=== PATIENT | male | born 1950 | race Caucasian/White ===

== ENCOUNTER 2017-07-08 10:29 | Inpatient (IN) | payer OTHER ==
[2017-07-08] MEDS ORDERED: PIPERACILLIN/TAZOB 3.375 GM 3.375 GM in DEXTROSE 5%-WATER - 50 ML IVPB ONE (10:54)
[2017-07-08] MEDS ORDERED: VANCOMYCIN 1,000 MG in DEXTROSE 5%-WATER - 250 ML IVPB ONE (10:54)
--- NOTE | 2017-07-08 11:05 | PDOC ---
History of Present Illness - General Chief Complaint: Abscess Boil Stated Complaint: ABSCESS FOOT Time Seen by Provider: 07/08/17 10:36 History Source: Patient - History of Present Illness Initial Comments: 07/08/17 11:02 Patient is an 67M with history of kidney transplant (on azathiprine and prednisone), IDDM, HTN, CAD here today complaining of an abscess to the right foot. Patient states that he first noticed the abscess 2-3 days ago. He's coming in today because he noticed discharge. Endorses subjective fevers and chills. Denies nausea, vomiting, shortness of breath, chest pain. He reports compliance with his medications. Past History - Past Medical History Allergies/Adverse Reactions: Allergies Allergy/AdvReac Type Severity Reaction Status Date / Time No Known Allergies Allergy Verified 07/08/17 10:38 Home Medications: Ambulatory Orders Amlodipine Besylate [Norvasc -] 5 mg PO DAILY 04/24/15 Clopidogrel Bisulfate [Plavix -] 75 mg PO DAILY 04/24/15 Fludrocortisone Acetate 0.1 mg PO DAILY 04/24/15 Nut.tx.gluc.intoler,Lac-Fr,Soy [Glucerna] 1,000 ml PO DAILY 04/24/15 Ranitidine [Zantac -] 150 mg PO DAILY 04/24/15 Simvastatin [Zocor -] 20 mg PO DAILY 04/24/15 Tacrolimus [Astagraf Xl] 1 mg PO DAILY 04/24/15 Tamsulosin HCl [Flomax] 0.4 mg PO DAILY 04/24/15 metFORMIN XR [Glucophage *Xr* -] 500 mg PO DAILY 04/24/15 COPD: No Diabetes: Yes HTN: Yes - Suicide/Smoking/Psychosocial Hx Smoking History: Never smoked Hx Alcohol Use: No Drug/Substance Use Hx: No Substance Use Type: None Review of Systems - Review of Systems Comments:: 07/08/17 11:09 GENERAL/CONSTITUTIONAL: +fever, +chills. No weakness. HEAD, EYES, EARS, NOSE AND THROAT: No change in vision. No sore throat. CARDIOVASCULAR: No chest pain or shortness of breath RESPIRATORY: No cough, wheezing, or hemoptysis. GASTROINTESTINAL: No nausea, vomiting, diarrhea or constipation. GENITOURINARY: No dysuria, frequency, or change in urination. MUSCULOSKELETAL: +right foot pain. No neck or back pain. SKIN: No rash NEUROLOGIC: No headache, vertigo, loss of consciousness, or change in strength/ sensation. ALLERGIC/IMMUNOLOGIC: No hives or skin allergy. *Physical Exam - Vital Signs Last Vital Signs Temp Pulse Resp BP Pulse Ox 98.5 F 78 17 148/56 98 07/08/17 10:35 07/08/17 10:35 07/08/17 10:35 07/08/17 10:35 07/08/17 10:35 - Physical Exam Comments: 07/08/17 11:10 GENERAL: Awake, alert, and fully oriented, in no acute distress R FOOT: 3x4cm area of fluctuance with surrounding erythema, tender, neurovascularly intact HEAD: No signs of trauma, normocephalic, atraumatic EYES: PERRLA, EOMI, sclera anicteric, conjunctiva clear ENT: Auricles normal inspection, hearing grossly normal, nares patent, oropharynx clear without exudates. Moist mucosa LUNGS: No distress, speaks full sentences, clear to auscultation bilaterally HEART: Regular rate and rhythm, normal S1 and S2, no murmurs, rubs or gallops, peripheral pulses normal and equal bilaterally. ABDOMEN: Soft, nontender, normoactive bowel sounds. No guarding, no rebound. No masses NEUROLOGICAL: Cranial nerves II through XII grossly intact. Normal speech, no focal sensorimotor deficits SKIN: Warm, Dry, normal turgor, no rashes or lesions noted. ED Treatment Course - LABORATORY CBC & Chemistry Diagram: 07/08/17 11:40 07/08/17 13:28 - RADIOLOGY Radiology Studies Ordered: Category Date Time Status CHEST X-RAY PORTABLE* [RAD] Stat Radiology 07/08/17 10:50 Ordered FOOT-RIGHT [RAD] Stat Radiology 07/08/17 10:50 Ordered Medical Decision Making - Medical Decision Making 07/08/17 11:11 Patient is 67M with history of kidney transplant, IDDM, CAD, HTN here today with diabetic foot wound. Vital signs normal and stable. Will evaluate with cbc , cmp, esr, crp, pt/inr, blood cultures and x-ray to evaluate for possible osteomyelitis. Will treat empirically with vanc and zosyn given patient's diabetic and immunosuppression. 07/08/17 12:35 EKG shows normal sinus rhythm with rate of 80. No st elevations/depressions. Normal MA/QRS/QTc intervals. Normal axis. No significant t wave abnormalities. 07/08/17 13:05 Foot x-ray shows no free air, destruction of 5th metatarsal ?acute, likely chronic. 07/08/17 13:06 CXR shows no acute cardiopulmonary process. *DC/Admit/Observation/Transfer Diagnosis at time of Disposition: Diabetic foot ulcer - Discharge Dispostion Condition at time of disposition: Stable Decision to Admit order: Yes - Referrals - Patient Instructions - Post Discharge Activity
--- NOTE | 2017-07-08 11:09 | PDOC ---
Attending Attestation - Resident Resident Name: Jamel Tucker - ED Attending Attestation I have performed the following: I have examined & evaluated the patient, The case was reviewed & discussed with the resident, I agree w/resident's findings & plan, Exceptions are as noted - HPI HPI: 07/08/17 11:05 67 year old male with history of renal transplant ([place]) on azathioprine, prednisone, HTN, DM, CAD p/w right foot infection. Patient accidentally had scraped the bottom of right foot. Started to develop deeper abscess and infection of right foot. Endorses subjective fevers and chills. Has had prior right foot infections. - Physicial Exam PE: 07/08/17 11:07 GENERAL: Awake, alert, and fully oriented, in no acute distress. HEAD: No signs of trauma EYES: EOMI, sclera anicteric, conjunctiva clear ENT: Auricles normal inspection, hearing grossly normal, nares patent NECK: Normal ROM, supple EXTREMITIES: RLE: 2+ DP pulse. Sensation intact throughout. Approx 4x4 cm induration, fluctuance of right plantar surface of foot. NEUROLOGICAL: Cranial nerves II through XII grossly intact. Normal speech, normal gait SKIN: Warm, Dry, normal turgor, no rashes or lesions noted. - Medical Decision Making 07/08/17 11:08 Vital Signs Temp Pulse Resp BP Pulse Ox 98.5 F 78 17 148/56 98 07/08/17 10:35 07/08/17 10:35 07/08/17 10:35 07/08/17 10:35 07/08/17 10:35 67 year old M s/p renal transplant on immunosuppressants p/w R foot infection. Labs, cultures, empiric IV antibiotics. R foot xray, ESR, CRP to r/o osteomyelitis Surgical/podiatry consultation. Admit. 07/08/17 14:52 CBC, BMP 07/08/17 11:40 07/08/17 13:28 CMP Sodium 135 mmol/L (136-145) L 07/08/17 13:28 Potassium 4.6 mmol/L (3.5-5.1) 07/08/17 13:28 Chloride 101 mmol/L (98-107) 07/08/17 13:28 Carbon Dioxide 27 mmol/L (21-32) 07/08/17 13:28 Anion Gap 7 (8-16) L 07/08/17 13:28 BUN 23 mg/dL (7-18) H 07/08/17 13:28 Creatinine 1.3 mg/dL (0.7-1.3) D 07/08/17 13:28 Creat Clearance w eGFR 55.06 (>60) 07/08/17 13:28 Random Glucose 297 mg/dL (74-106) H D 07/08/17 13:28 Calcium 9.3 mg/dL (8.5-10.1) 07/08/17 13:28 Total Bilirubin 1.1 mg/dL (0.2-1.0) H D 07/08/17 13:28 AST 11 U/L (15-37) L D 07/08/17 13:28 ALT 13 U/L (12-78) D 07/08/17 13:28 Alkaline Phosphatase 62 U/L (45-117) D 07/08/17 13:28 C-Reactive Protein 4.9 MG/DL (0.00-0.3) H 07/08/17 13:28 Total Protein 6.2 g/dl (6.4-8.2) L 07/08/17 13:28 Albumin 3.3 g/dl (3.4-5.0) L 07/08/17 13:28 Pt admitted to [facility]. Heart Score/ECG Review #1 ECG reviewed & interpreted by me at: 11:30 07/08/17 11:30 NSR 80, no std/slick, normal axis, normal intervals, QTC 405 msec
[2017-07-08] MEDS ORDERED: VANCOMYCIN 1 GRAM (PRE-DOCKED) 1,000 MG/250 ML BAG IVPB ONE (11:12)
[2017-07-08] MEDS ORDERED: PIPERACILLIN/TAZOB 3.375 GM 3.375 GM/50 ML BAG IVPB ONE (11:13)
[2017-07-08 11:56] LABS: HEMATOCRIT 37.8 % (35.4-49); HEMOGLOBIN 12.3 GM/dL (11.7-16.9); MCH 28.4 pg (25.7-33.7); MCHC 32.6 g/dl (32.0-35.9); MEAN CELL VOLUME 87.1 fl (80-96); MEAN PLT VOLUME 7.6 fl (7.5-11.1); PLATELET COUNT 188 K/MM3 (134-434); RBC 4.34 M/mm3 (4.00-5.60); RDW 16.2 % (11.9-15.9); WHITE BLOOD COUNT 6.6 K/mm3 (4.0-10.0)
[2017-07-08 12:08] LABS: INR 1.06 (0.82-1.09)
[2017-07-08 13:05] LABS: ERYTHROCYTE SEDIMENTATION RATE 18 mm/hr (0-20)
[2017-07-08 14:19] LABS: ALBUMIN 3.3 g/dl (3.4-5.0); ANION GAP 7 (8-16); BILIRUBIN,TOTAL 1.1 mg/dL (0.2-1.0); BLOOD UREA NITROGEN 23 mg/dL (7-18); CALCIUM 9.3 mg/dL (8.5-10.1); CHLORIDE 101 mmol/L (98-107); CO2 27 mmol/L (21-32); CREATININE 1.3 mg/dL (0.7-1.3); GLUCOSE,RANDOM 297 mg/dL (74-106); POTASSIUM 4.6 mmol/L (3.5-5.1); SGOT/AST 11 U/L (15-37); SGPT/ALT 13 U/L (12-78); SODIUM 135 mmol/L (136-145); TOT PROT 6.2 g/dl (6.4-8.2)
[2017-07-08 14:32] LABS: ALK PHOS 62 U/L (45-117)
--- NOTE | 2017-07-08 14:56 | HP ---
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 Pain is constant dull 8/10, non radiating. He has had subjective fevers and chills, no nausea and vomiting. Pt cannot describe the onset of the wound. He said he noticed a blister that subsequently resulted in so much pain that he could not bear weight on it and so is ambulating with the aid of a cane. 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 Pt acknowleges chronic neuropathic pain in both feet and denies loss of sensation. Last insulin was yesterday. He felt to ill today to take medication. He has been diabetic for over 30years on insulin, with nephropathy and need for renal transplant about 3 years ago. He follows with the transplant center with [facility] but came in to [facility] today because of proximity to him. No cough, no chest pain, no change in bowel habits, no dysuria. ER course was notable for: (1) BP-148/56, Cr-1.3, CRP- elevated at 4.9 (2) R foot Xray- Destruction of 5th metatarsal. Diffuse vascular calcifications. 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 Lat Xray; Tarsal bone project soft tissue swelling. (3) Vancomycin 1g, zosyn 3.375 Recent Travel: PAST MEDICAL HISTORY: renal transplant, DM, HTN, recent CAD on clopidogrel PAST SURGICAL HISTORY: Abdominal Herniorrhaphy R metatarsal amputation L leg surgery Social History: Lives alone, does not work currently Smoking: Denies Alcohol:Denies Drugs: Denies Family History: Allergies No Known Allergies Allergy (Verified 07/08/17 10:38) HOME MEDICATIONS: Home Medications Medication Instructions Recorded Amlodipine Besylate [Norvasc -] 5 mg PO DAILY 04/24/15 Clopidogrel Bisulfate [Plavix -] 75 mg PO DAILY 04/24/15 Fludrocortisone Acetate 0.1 mg PO DAILY 04/24/15 Nut.tx.gluc.intoler,Lac-Fr,Soy 1,000 ml PO DAILY 04/24/15 [Glucerna] Ranitidine [Zantac -] 150 mg PO DAILY 04/24/15 Simvastatin [Zocor -] 20 mg PO DAILY 04/24/15 Tacrolimus [Astagraf Xl] 1 mg PO DAILY 04/24/15 Tamsulosin HCl [Flomax] 0.4 mg PO DAILY 04/24/15 metFORMIN XR [Glucophage *Xr* -] 500 mg PO DAILY 04/24/15 REVIEW OF SYSTEMS CONSTITUTIONAL: Absent: fever+, chills+, diaphoresis, generalized weakness, malaise, loss of appetite, weight change HEENT: Absent: rhinorrhea, nasal congestion, throat pain, throat swelling, difficulty swallowing, mouth swelling, ear pain, eye pain, visual changes CARDIOVASCULAR: Absent: chest pain, syncope, palpitations, irregular heart rate, lightheadedness , peripheral edema RESPIRATORY: Absent: cough, shortness of breath, dyspnea with exertion, orthopnea, wheezing, stridor, hemoptysis GASTROINTESTINAL: Absent: abdominal pain, abdominal distension, nausea, vomiting, diarrhea, constipation, melena, hematochezia GENITOURINARY: Absent: dysuria, frequency, urgency, hesitancy, hematuria, flank pain, genital pain MUSCULOSKELETAL: Absent: myalgia, arthralgia, joint swelling, back pain, neck pain SKIN: Absent: rash, itching, pallor HEMATOLOGIC/IMMUNOLOGIC: Absent: easy bleeding, easy bruising, lymphadenopathy, frequent infections ENDOCRINE: Absent: unexplained weight gain, unexplained weight loss, heat intolerance, cold intolerance NEUROLOGIC: Absent: headache, focal weakness or paresthesias, dizziness, unsteady gait, seizure, mental status changes, bladder or bowel incontinence PSYCHIATRIC: Absent: anxiety, depression, suicidal or homicidal ideation, hallucinations. PHYSICAL EXAMINATION Vital Signs - 24 hr 07/08/17 10:35 Temperature 98.5 F Pulse Rate 78 Respiratory 17 Rate Blood Pressure 148/56 O2 Sat by Pulse 98 Oximetry (%) GENERAL: Awake, alert, and fully oriented, in no acute respiratory distress, sating well in RA. EYES: Pupils equal, round and reactive to light, extraocular movements intact EARS, NOSE, THROAT: Moist mucous membranes. LUNGS: Breath sounds equal, clear to auscultation bilaterally. No wheezes, and no crackles. HEART: Regular rate and rhythm, normal S1 and S2, S4 systolic murmur ABDOMEN: Right semicircular scar. Obese, Soft, nontender, normoactive bowel sounds LOWER EXTREMITIES: Normal range of motion at all joints. DP pulse on L1+ no left pedal edema. DP on R 1-(palpable), Missing R 5 metatarsal. R heel callus, firm with 2cm laceration. Dirty looking, no obvious drainage or bleeding. UPPER EXTREMITIES: 2+ pulses, warm, well-perfused. NEUROLOGICAL: AAO x3. Normal tone and muscle strength. Normal speech. gait not observed. CBC, BMP 07/08/17 11:40 07/08/17 13:28 Laboratory Results - last 24 hr 07/08/17 07/08/17 07/08/17 11:40 11:40 13:28 WBC 6.6 RBC 4.34 Hgb 12.3 Hct 37.8 MCV 87.1 MCH 28.4 MCHC 32.6 RDW 16.2 H Plt Count 188 MPV 7.6 ESR 18 PT with INR 12.00 INR 1.06 Sodium 135 L Potassium 4.6 Chloride 101 Carbon Dioxide 27 Anion Gap 7 L BUN 23 H Creatinine 1.3 D Creat Clearance w eGFR 55.06 Random Glucose 297 H D Calcium 9.3 Total Bilirubin 1.1 H D AST 11 L D ALT 13 D Alkaline Phosphatase 62 D C-Reactive Protein 4.9 H Total Protein 6.2 L Albumin 3.3 L ASSESSMENT/PLAN: Pt is a 67 yo s/p renal transplant, PMHx of DM, HTN, recent CAD on clopidogrel now presenting with R heel swelling and pain for 3 days. # R Diabetic foot R/O osteomyelitis DM poorly controlled, renal transplant pt on immunosuppressive tx may not mount adequate response Xray of foot negative for osteomyelitis, but CRP- elevated Will do MRI of R foot w/o contrast -considering renal transplant and new GERALDINE Received zosyn 3.375mg in ED, will continue Q8H Received 1g vancomycin in ED, will continue Q12H Tabs percocet 1 Q4H PRN -pain 4-6 ID consult- Dr Vargas Renal consult- Dr Carlton Vascular- Dr Bose Podiatry- Dr Momin pending blood culture #DM poorly controlled with hyperglycemia Glu-297 HgbA1c Home med reconciled Resume Levemir 30mg HS Resume Januvia 100mg daily ISS TIDAC BGM TIDAC Hold home metformin #GERALDINE Documented previous cr-0.8 to 1.0 Maybe secondary to dehydration IV Normal saline @100/hr Urine lytes Dr Carlton consulted [facility] Cont sodium NaHCO3 #HTN Resume home amlodipine, bystolic #s/p renal transplant On prednisone, azathioprine, astagraft- resume #CAD R/O chronic CHF Does not look decompensated at this time Cont ASA, plavix, isosorbide #HLD Continue simvastatin #BPH Cont flomax #Chronic constipation Cont miralax #PPx Cont ranitidine Continue plavix Dispo: Admit med surg Visit type - Emergency Visit Emergency Visit: Yes ED Registration Date: 07/08/17 Care time: The patient presented to the Emergency Department on the above date and was hospitalized for further evaluation of their emergent condition. - New Patient This patient is new to me today: Yes Date on this admission: 07/08/17 - Critical Care Critical Care patient: No Hospitalist Screening - Colonoscopy Questionnaire Colonoscopy Questionnaire: Colonoscopy Questionnaire - Patient: 50 - 75 years old and never had a screening colonoscopy: Unknown History of colon or rectal polyps, or CA: Unknown History of IBD, Crohn's disease or UC: Unknown History of abdominal radiation therapy as a child: Unknown - Relative: 1 with colon or rectal CA, or polyps at age 60 or younger: Unknown Colon or rectal CA diagnosed at age 45 or younger: Unknown Multiple relatives with colon or rectal CA: Unknown - Outcome: Screening Result: Negative Screen
--- NOTE | 2017-07-08 15:50 | HP ---
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 HISTORY OF PRESENT ILLNESS: The patient is a 67 year old Ivorian speaking male with a significant PMH of renal transplant, on Azathioprine, Prednisone, CAD, HTN, DM, history of osteomyelitis, that presents to the hospital complaining of right foot pain for 2-3 days. He doesn't know if he had injury to his foot. He states that the pain in 8/10 in severity, no aggravating alleviating factors. He didn't take any OTC medications. He is also complaining of abdominal hernia that is visible that he is standing.The patient reports chills but no fever. He denies chest pain, , abdominal pain, dysuria, N/V, diarrhea. The patient is a poor historian. ER course was notable for: (1)CRP 4.9 (2)XR foot (3)CXR PAST MEDICAL HISTORY: as above PAST SURGICAL HISTORY: hernia repair, R foot partial amputation of 5th metatarsal Social History: Smoking:denies, never smoker Alcohol:denies Drugs: denies Family History: N/A Allergies No Known Allergies Allergy (Verified 07/08/17 10:38) HOME MEDICATIONS: Home Medications Medication Instructions Recorded Amlodipine Besylate [Norvasc -] 5 mg PO DAILY 04/24/15 Clopidogrel Bisulfate [Plavix -] 75 mg PO DAILY 04/24/15 Fludrocortisone Acetate 0.1 mg PO DAILY 04/24/15 Nut.tx.gluc.intoler,Lac-Fr,Soy 1,000 ml PO DAILY 04/24/15 [Glucerna] Ranitidine [Zantac -] 150 mg PO DAILY 04/24/15 Simvastatin [Zocor -] 20 mg PO DAILY 04/24/15 Tacrolimus [Astagraf Xl] 1 mg PO DAILY 04/24/15 Tamsulosin HCl [Flomax] 0.4 mg PO DAILY 04/24/15 metFORMIN XR [Glucophage *Xr* -] 500 mg PO DAILY 04/24/15 REVIEW OF SYSTEMS CONSTITUTIONAL: Absent: fever, chills, diaphoresis, generalized weakness, malaise, loss of appetite, weight change HEENT: Absent: rhinorrhea, nasal congestion, throat pain, throat swelling, difficulty swallowing CARDIOVASCULAR: Absent: chest pain, syncope, palpitations, irregular heart rate, lightheadedness , peripheral edema RESPIRATORY: Absent: cough, shortness of breath, dyspnea with exertion, orthopnea, wheezing GASTROINTESTINAL: Absent: abdominal pain, abdominal distension, nausea, vomiting, diarrhea, constipation GENITOURINARY: Absent: dysuria, frequency, urgency, hesitancy, hematuria, flank pain, genital pain MUSCULOSKELETAL: right foot pain Absent: myalgia, arthralgia, joint swelling, back pain, neck pain SKIN: Absent: rash, itching, pallor HEMATOLOGIC/IMMUNOLOGIC: Absent: easy bleeding, easy bruising, lymphadenopathy, frequent infections ENDOCRINE: Absent: unexplained weight gain, unexplained weight loss NEUROLOGIC: Absent: headache, focal weakness or paresthesias, dizziness PSYCHIATRIC: Absent: anxiety, depression PHYSICAL EXAMINATION Vital Signs - 24 hr 07/08/17 10:35 Temperature 98.5 F Pulse Rate 78 Respiratory 17 Rate Blood Pressure 148/56 O2 Sat by Pulse 98 Oximetry (%) GENERAL: Awake, alert, and fully oriented, in no acute distress. HEAD: Normal with no signs of trauma. EYES: Extraocular movements intact, sclera anicteric, conjunctiva clear. No lid lag. EARS, NOSE, THROAT: Ears normal, nares patent, oropharynx clear without exudates. Moist mucous membranes. NECK: Normal range of motion, supple without lymphadenopathy, JVD, or masses. LUNGS: Breath sounds equal, clear to auscultation bilaterally. No wheezes, and no crackles. No accessory muscle use. HEART: Regular rate and rhythm, normal S1 and S2 without murmur, rub or gallop. ABDOMEN: Soft, nontender, not distended, normoactive bowel sounds, no guarding, no rebound, no masses. No hepatomegaly or splenomegaly, scar on right side, well healed. MUSCULOSKELETAL: Normal range of motion at all joints. No bony deformities or tenderness. UPPER EXTREMITIES: No peripheral edema. LOWER EXTREMITIES: 1+ pulses, warm, no calf tenderness. Right foot: mid foot, lateral side, closed wound, around 3 cm, dark brown color, no discharge, swelling, mild flatulance, no crepitus, mild erythema and missing 5th metatarsal , cracked dry skin. Left foot: dry skin, onychomycosis in both feet. NEUROLOGICAL: No facial asymmetry, no slurred speech, motor 5/5, sensation intact to light touch. PSYCHIATRIC: Cooperative. Good eye contact. Appropriate mood and affect. SKIN: Warm, dry, normal turgor. Laboratory Results - last 24 hr 07/08/17 07/08/17 07/08/17 11:40 11:40 13:28 WBC 6.6 RBC 4.34 Hgb 12.3 Hct 37.8 MCV 87.1 MCH 28.4 MCHC 32.6 RDW 16.2 H Plt Count 188 MPV 7.6 ESR 18 PT with INR 12.00 INR 1.06 Sodium 135 L Potassium 4.6 Chloride 101 Carbon Dioxide 27 Anion Gap 7 L BUN 23 H Creatinine 1.3 D Creat Clearance w eGFR 55.06 Random Glucose 297 H D Calcium 9.3 Total Bilirubin 1.1 H D AST 11 L D ALT 13 D Alkaline Phosphatase 62 D C-Reactive Protein 4.9 H Total Protein 6.2 L Albumin 3.3 L ASSESSMENT/PLAN: The patient is a 67 year old Ivorian speaking male with a significant PMH of renal transplant, on Azathioprine, Prednisone, CAD, HTN, DM, history of osteomyelitis, that presents to the hospital complaining of right foot pain for 2-3 days. The patient is admitted for diabetic foot, possible osteomyelitis. Diabetic foot: -the patient is complaining of foot pain that may be osteomyelitis. It was not visualized with x ray so we will obtain MRI without contrast (Elevated Cr). -the patient has elevated CRP 4.9 and ESR is 18, no fever, no elevated WBC -the patient was given broad spectrum antibiotics Vancomycin and Zosyn. We will continue for now, ID consulted, will f/u recommendations -Vascular surgery and podiatry consulted for evaluation GERALDINE: -Cr is 1.3 today. On previous admissions from 2016 it was normal. 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 We called the office today but it was already closed. -avoid nephrotoxic substances -continue NS -continue immunosupressants CAD: -cont home ASA, Isosorbite, Plavix DMII: -added HgA1c -continue Levemir 30 units in AM -continue Januvia -continue ISS ACHS -continue BGMs ACHS -diabetic diet HTN: -cont Bystolic, Norvasc Renal transplant: -continue immunosupressants: Tacrolimus, Prednisone, Azathioprine -f/u with transplant center -cont sodium bicarbonite -Renal consulted GERD: -cont Zantac BPH: -continue Flomax Disposition: -med surg Full note to follow Problem List - Problem (1) Hypertension Code(s): I10 - ESSENTIAL (PRIMARY) HYPERTENSION (2) Hyperlipidemia Code(s): E78.5 - HYPERLIPIDEMIA, UNSPECIFIED (3) BPH (benign prostatic hyperplasia) Code(s): N40.0 - BENIGN PROSTATIC HYPERPLASIA WITHOUT LOWER URINRY TRACT SYMP (4) CAD (coronary artery disease) Code(s): I25.10 - ATHSCL HEART DISEASE OF [place] CORONARY ARTERY W/O ANG PCTRS (5) Diabetic foot ulcer Code(s): E11.621 - TYPE 2 DIABETES MELLITUS WITH FOOT ULCER; L97.509 - NON- PRESSURE CHRONIC ULCER OTH PRT UNSP FOOT W UNSP SEVERITY (6) History of renal transplant Code(s): Z94.0 - KIDNEY TRANSPLANT STATUS Visit type - Emergency Visit Emergency Visit: Yes ED Registration Date: 07/08/17 Care time: The patient presented to the Emergency Department on the above date and was hospitalized for further evaluation of their emergent condition. - New Patient This patient is new to me today: Yes Date on this admission: 07/08/17 - Critical Care Critical Care patient: No
[2017-07-08] MEDS ORDERED: ACETAMINOPHEN 325 MG TABLET (FP) PO ONE (16:11)
[2017-07-08] MEDS ORDERED: ACETAMINOPHEN 325 MG TABLET (FP) ONE (16:12)
[2017-07-08] MEDS ORDERED: DOCUSATE SODIUM 100 MG CAPSULE (FP) PO PRN (16:15)
[2017-07-08] MEDS ORDERED: oxyCODONE HCL 5 MG TABLET PO PRN (16:15)
[2017-07-08] MEDS: SODIUM CHLORIDE 1,000 ML IV SCH ×2 (16:19→21:21)
[2017-07-08] MEDS ORDERED: TACROLIMUS 1 MG PO SCH (16:30)
[2017-07-08] MEDS ORDERED: amLODIPine BESYLATE 5 MG TABLET (FP) PO SCH (16:45)
[2017-07-08] MEDS: CLOPIDOGREL BISULFATE 75 MG TABLET (FP) PO SCH (16:45)
[2017-07-08] MEDS: TAMSULOSIN HCL 0.4 MG CAP.ER.24H (FP) PO SCH (16:45)
[2017-07-08] MEDS ORDERED: TAMSULOSIN HCL 0.4 MG CAP.ER.24H (FP) ONE (16:47)
[2017-07-08] MEDS ORDERED: CLOPIDOGREL BISULFATE 75 MG TABLET (FP) ONE (16:48)
[2017-07-08] MEDS ORDERED: amLODIPine BESYLATE 5 MG TABLET (FP) ONE (16:48)
[2017-07-08] MEDS ORDERED: VANCOMYCIN 1,000 MG in DEXTROSE 5%-WATER - 250 ML IVPB SCH (17:45)
[2017-07-08] MEDS ORDERED: PIPERACILLIN/TAZOB 3.375 GM 3.375 GM in DEXTROSE 5%-WATER - 50 ML IVPB SCH (18:00)
[2017-07-08 18:04] VITALS: BMI 26.2
--- NOTE | 2017-07-08 18:06 | PN ---
Teaching Attending Note Name of Resident: Nguyen Alberto ATTENDING PHYSICIAN STATEMENT I saw and evaluated the patient. I reviewed the resident's note and discussed the case with the resident. I agree with the resident's findings and plan as documented. SUBJECTIVE:67yo M with PMH HTN, CAD with possible stent placement, DM, s/p renal transplant due to diabetic nephropathy has been off HD for 5 years since transplant presented to the ER with R foot pain for 2-3days. states he noted he had a blister on his foot a few days ago due to the pain. unaware how long it was there due to decreased sensation in the foot. assoc with subjective fevers and chills. denies CP, SOB, N/V/C/D claims medication compliance. PMD is Dr Elkins but does not know where she is located OBJECTIVE: Last Vital Signs Temp Pulse Resp BP Pulse Ox 102.4 F H 83 18 160/69 98 07/08/17 16:29 07/08/17 16:29 07/08/17 16:29 07/08/17 16:29 07/08/17 16:29 General NAD CV S1 s2 + Lungs CTA Extremities LUE AV graft palpable thrill. R foot with hardened callus on ball of foot. not tender + mild fluctanace. sensation intact. pulse intact ASSESSMENT AND PLAN: 67yo M with PMH HTN, CAD with possible stent placement, DM, s/p renal transplant due to diabetic nephropathy presented to the ER with R foot pain for 2-3days 1. Diabetic foot ulcer- concern for OM given elevated ESR. initial XR showing bone destruction. will obtain MRI. vascular surgery, podiatry and ID consulted. start vanco/zosyn. check daily vanco levels given hx of renal disease. f/u Cx 2. GERALDINE- liekly infection and dehydration. start IVF. check urine lytes. renal u/ s. nephrology consult due to hx. 3. DM- uncontrolled. unclear how much insulin at home. start levemir 10 units tonight, iss. will titrate to optimize sugar control. check A1c 4. CAD- recent cardiac cath 3 weeks ago. on plavix so possible stent placement. cont plavix 5. s/p renal transplant- pt states he sees Dr Elkins but too many doctors listed with this name. will call pharmacy to confirm meds. appears he may be on immunosupressant therapy. renal consulted 6. DVT ppx- hep sq
[2017-07-08 18:57] LABS: MAGNESIUM 1.3 mg/dL (1.8-2.4)
[2017-07-08] MEDS ORDERED: MAGNESIUM SULF 50% (8.12 MEQ/2 ML-1 GM VIAL) IVPB ONE (20:19)
[2017-07-08] MEDS ORDERED: NAPH,MB-DB/K PH,MBDB POWDER PACKET PO ONE (20:45)
[2017-07-08] MEDS ORDERED: MAGNESIUM SULFATE IN WATER 2 GM/50 ML IVPB IVPB ONE (20:45)
[2017-07-08] MEDS: TACROLIMUS ANHYDROUS 1 MG CAPSULE PO SCH (21:21)
[2017-07-08] MEDS: azaTHIOprine 50 MG TABLET PO SCH (21:21)
[2017-07-08] MEDS: NEBIVOLOL 10 MG TABLET (FP) PO SCH (21:21)
[2017-07-08] MEDS: ASPIRIN 325 MG TABLET PO SCH (21:22)
[2017-07-08] MEDS: predniSONE 5 MG TABLET (UD) PO SCH (21:22)
[2017-07-08] MEDS: INSULIN (LEVEMIR) 100 UNITS/ML UNITS SQ SCH (21:23)
[2017-07-08] MEDS: ATORVASTATIN CA 10 MG TABLET (FP) PO SCH (21:24)
[2017-07-08] MEDS: ISOSORBIDE MONONITRATE 60 MG TAB.SR.24H (FP) PO SCH (21:28)
[2017-07-08] MEDS: INSULIN SLIDING SCALE (NOVOLOG) 1 VIAL SQ SCH (21:32)
[2017-07-08] MEDS ORDERED: INSULIN (NOVOLOG) ASPART 100 UNITS/ML 10ML VIAL ONE (21:32)
[2017-07-08] MEDS ORDERED: INSULIN (LEVEMIR) 100 UNITS/ML UNITS SQ SCH ×2 (22:00)
[2017-07-08] MEDS: VANCOMYCIN 1,000 MG in DEXTROSE 5%-WATER - 250 ML IVPB SCH (22:19)
[2017-07-09] MEDS: INSULIN SLIDING SCALE (NOVOLOG) 1 VIAL SQ SCH ×3 (06:00→17:08)
[2017-07-09] MEDS ORDERED: PT OWN MED DRAWER 7, Y5N ONE ×3 (06:44→21:15)
--- NOTE | 2017-07-09 06:57 | CONSULT ---
Consult - text type - Consultation Consultation Note: Podiatry Consultation: 67 year old pleasant IDDM M presents with R foot swelling for about 1 week. Does report subjective fever/chills at home. Currently with low grade temp, otherwise VSS. PMHx: CAD s/p stent, IDDM, HTN, s/p renal transplant Meds: noted ALL NKMA ANGIE: R foot: pedal pulses weakly palpable, TG wnl, CFT brisk to all toes. There is a charcot deformity of the right foot with prominence plantar midfoot. There is mild fluctuance with serous drainage from the plantar midfoot, hyperkeratotic , no probing to bone, no soft tissue crepitus, no streaking cellulitis. Mild tenderness to palpation. WBC: 6.6 R foot XR: vascular calcifications, charcot arthropathy Imp: 67 year old IDDM M with R plantar midfoot Charcot arthropathy, r/o abscess 1. DSD R foot 2. Minimal weightbearing right foot 3. C/w IV abx. ID consultation 4. MRI R foot. Would be better with contrast, but given his renal history will do without. 5. Evaluate for charcot changes vs. osteo vs. abscess. May need bone biopsy and debridement depending on MRI. 6. Vascular studies, consultation 7. Thank you for the courtesy of this consultation. Hue Momin DPM
[2017-07-09] MEDS ORDERED: INSULIN (LEVEMIR) 100 UNITS/ML UNITS SQ SCH (07:00)
[2017-07-09 08:04] LABS: HEMATOCRIT 33.8 % (35.4-49); HEMOGLOBIN 11.1 GM/dL (11.7-16.9); MCH 28.5 pg (25.7-33.7); MCHC 32.8 g/dl (32.0-35.9); MEAN CELL VOLUME 86.8 fl (80-96); MEAN PLT VOLUME 7.2 fl (7.5-11.1); PLATELET COUNT 182 K/MM3 (134-434); RBC 3.89 M/mm3 (4.00-5.60)
[2017-07-09] MEDS: TAMSULOSIN HCL 0.4 MG CAP.ER.24H (FP) PO SCH (08:30)
[2017-07-09 08:39] LABS: CHLORIDE 107 mmol/L (98-107); POTASSIUM 4.7 mmol/L (3.5-5.1); SODIUM 139 mmol/L (136-145)
[2017-07-09 09:02] LABS: CALCIUM 9.2 mg/dL (8.5-10.1)
[2017-07-09 09:03] LABS: ALBUMIN 2.9 g/dl (3.4-5.0); ALK PHOS 59 U/L (45-117); ANION GAP 8 (8-16); BILIRUBIN,TOTAL 0.7 mg/dL (0.2-1.0); BLOOD UREA NITROGEN 23 mg/dL (7-18); CO2 24 mmol/L (21-32); CREATININE 1.2 mg/dL (0.7-1.3); GLUCOSE,RANDOM 117 mg/dL (74-106); PHOSPHOROUS 2.5 mg/dL (2.5-4.9); SGOT/AST 8 U/L (15-37); SGPT/ALT 12 U/L (12-78); TOT PROT 5.8 g/dl (6.4-8.2)
[2017-07-09] MEDS: VANCOMYCIN 1,000 MG in DEXTROSE 5%-WATER - 250 ML IVPB SCH (10:00)
[2017-07-09] MEDS: ISOSORBIDE MONONITRATE 60 MG TAB.SR.24H (FP) PO SCH (10:10)
[2017-07-09] MEDS: ASPIRIN 325 MG TABLET PO SCH (10:10)
[2017-07-09] MEDS: RANITIDINE HCL 150 MG TABLET (FP) PO SCH (10:10)
[2017-07-09] MEDS: predniSONE 5 MG TABLET (UD) PO SCH (10:10)
[2017-07-09] MEDS: sitaGLIPtin PHOSPHATE 100 MG TABLET (FP) PO SCH (10:10)
[2017-07-09] MEDS: CLOPIDOGREL BISULFATE 75 MG TABLET (FP) PO SCH (10:11)
[2017-07-09] MEDS: SODIUM BICARBONATE 650 MG TABLET PO SCH (10:11)
[2017-07-09] MEDS: NEBIVOLOL 10 MG TABLET (FP) PO SCH (10:13)
[2017-07-09] MEDS: azaTHIOprine 50 MG TABLET PO SCH (10:14)
[2017-07-09] MEDS: TACROLIMUS ANHYDROUS 1 MG CAPSULE PO SCH ×2 (10:15→21:34)
[2017-07-09] MEDS: POLYETHYLENE GLYCOL 3350 119 GM BTL PO SCH (10:22)
--- NOTE | 2017-07-09 10:58 | CONSULT ---
Consult - History of Present Illness History of Present Illness: 67 year old man DM, renal transplant with draining wound right foot. He has had a metatarsal resection right foot in the past. No fever or chills. - History Source History Provided By: Patient - Past Medical History Cardio/Vascular: Yes: HTN Renal/: Yes: Renal Failure, Other (Renal transplant) Endocrine: Yes: Diabetes Mellitus - Alcohol/Substance Use Hx Alcohol Use: No - Smoking History Smoking history: Never smoked Home Medications - Allergies Allergies/Adverse Reactions: Allergies Allergy/AdvReac Type Severity Reaction Status Date / Time No Known Allergies Allergy Verified 07/08/17 10:38 - Home Medications Home Medications: Ambulatory Orders Amlodipine Besylate [Norvasc -] 10 mg PO DAILY 04/24/15 Clopidogrel Bisulfate [Plavix -] 75 mg PO DAILY 04/24/15 Ranitidine [Zantac -] 150 mg PO DAILY 04/24/15 Simvastatin [Zocor -] 20 mg PO HS 04/24/15 Tacrolimus [Astagraf Xl] 8 mg PO DAILY 04/24/15 Tamsulosin HCl [Flomax] 0.4 mg PO BID 04/24/15 metFORMIN XR [Glucophage *Xr* -] 750 mg PO HS 04/24/15 Aspirin [ASA -] 325 mg PO DAILY 07/08/17 Azathioprine [Imuran] 150 mg PO DAILY 07/08/17 Ergocalciferol (Vitamin D2) [Vitamin D2] 50,000 unit PO MONTHLY 07/08/17 Insulin (Levemir) [Levemir Vial] 30 unit SQ HS 07/08/17 Isosorbide Mononitrate [Isosorbide Mononitrate ER] 60 mg PO DAILY 07/08/17 Nebivolol HCl [Bystolic] 20 mg PO DAILY 07/08/17 Polyethylene Glycol 3350 [Miralax (For Daily Use) -] 17 gm PO DAILY 07/08/17 Prednisone 5 mg PO DAILY 07/08/17 Sitagliptin Phosphate [Januvia] 100 mg PO DAILY 07/08/17 Sodium Bicarbonate - 2 tab PO DAILY 07/08/17 Physical Exam Vital Signs: Vital Signs Temperature 99.6 F 07/09/17 06:00 Pulse Rate 71 07/09/17 06:00 Respiratory Rate 20 07/08/17 23:34 Blood Pressure 102/57 07/09/17 06:00 O2 Sat by Pulse Oximetry (%) 94 L 07/08/17 21:00 Constitutional: Yes: Well Nourished, No Distress Extremities: Yes: Other (Charcot deformity right with fluctuant swelling lateral midfoot and necrotic callus under 5th metatarsal. No erythema. No active drainage.) Edema: No Peripheral Pulses WNL: No (Pedal pulses not palpable.) Labs: CBC, BMP 07/09/17 07:30 07/09/17 07:30 Problem List - Problems (1) Diabetes mellitus type 2 with atherosclerosis of arteries of extremities Assessment/Plan: Diminished pulses with necrotic foot wound. Will need non-invasive vascular testing. If significant PAD present, angiogram may be needed. Code(s): E11.51 - TYPE 2 DIABETES W DIABETIC PERIPHERAL ANGIOPATH W/O GANGRENE; I70.209 - UNSP ATHSCL PILOT STATION ARTERIES OF EXTREMITIES, UNSP EXTREMITY (2) Diabetic foot ulcer Assessment/Plan: Wound debrided at bedside. Culture of deep wound sent. Santyl dressings Non-weight bearing Code(s): E11.621 - TYPE 2 DIABETES MELLITUS WITH FOOT ULCER; L97.509 - NON- PRESSURE CHRONIC ULCER OTH PRT UNSP FOOT W UNSP SEVERITY Qualifiers: Diabetic foot ulcer location: midfoot Diabetes mellitus type: type 2 Laterality: right Non-pressure ulcer stage: with fat layer exposed Qualified Code(s): E11.621 - Type 2 diabetes mellitus with foot ulcer; L97.412 - Non-pressure chronic ulcer of right heel and midfoot with fat layer exposed
--- NOTE | 2017-07-09 11:00 | PROC ---
Incision and Drainage Indication/Location: Right plantar wound Risks and Benefits Explained: Yes Consent on Chart: Yes Betadine cleansed: Yes Blade Size: 15 Drainage: Small amount purulent Sterile Dressing Applied: Yes - Remarks Remarks: Excisional debridement performed intop subcutaneous tissues to remove necrotic skin and exudate.
--- NOTE | 2017-07-09 11:58 | CONSULT ---
Consult - text type - Consultation Consultation Note: Renal Consult for ESRD/Renal Transplant This is a 67 year old gentleman with PMhx of ESRD s/p Renal Transplant (3 years ago, on Prograf, Imuran, Prednisone), Hypertension, DM, Hypertension, CAD who presented with right heel swelling and pain and found to have draining wound and Cr of 1.2. Pt states that his renal function has been doing well. Denies any rejection hx. Reports compliance with all his meds. Denies any graft tenderness, dysuira, hematuria. Making urine w/o difficulty. Denies any fever, chills, SANTANA, CP, Abd pain. Getting IV Abx. s/p Debridement by vascular surgery. PMhx: as above Allergies: NDKA Family Hx: NC Social Hx: No T/A/D ROS: as per HPI Home Medications Medication Instructions Recorded Amlodipine Besylate [Norvasc -] 10 mg PO DAILY 04/24/15 Clopidogrel Bisulfate [Plavix -] 75 mg PO DAILY 04/24/15 Ranitidine [Zantac -] 150 mg PO DAILY 04/24/15 Simvastatin [Zocor -] 20 mg PO HS 04/24/15 Tacrolimus [Astagraf Xl] 8 mg PO DAILY 04/24/15 Tamsulosin HCl [Flomax] 0.4 mg PO BID 04/24/15 metFORMIN XR [Glucophage *Xr* -] 750 mg PO HS 04/24/15 Aspirin [ASA -] 325 mg PO DAILY 07/08/17 Azathioprine [Imuran] 150 mg PO DAILY 07/08/17 Ergocalciferol (Vitamin D2) 50,000 unit PO MONTHLY 07/08/17 [Vitamin D2] Insulin (Levemir) [Levemir Vial] 30 unit SQ HS 07/08/17 Isosorbide Mononitrate [Isosorbide 60 mg PO DAILY 07/08/17 Mononitrate ER] Nebivolol HCl [Bystolic] 20 mg PO DAILY 07/08/17 Polyethylene Glycol 3350 [Miralax 17 gm PO DAILY 07/08/17 (For Daily Use) -] Prednisone 5 mg PO DAILY 07/08/17 Sitagliptin Phosphate [Januvia] 100 mg PO DAILY 07/08/17 Sodium Bicarbonate - 2 tab PO DAILY 07/08/17 Vital Signs Temperature 99.6 F 07/09/17 06:00 Pulse Rate 71 07/09/17 06:00 Respiratory Rate 20 07/08/17 23:34 Blood Pressure 102/57 07/09/17 06:00 O2 Sat by Pulse Oximetry (%) 94 L 07/08/17 21:00 Intake & Output 07/06/17 07/07/17 07/08/17 07/09/17 23:59 23:59 23:59 23:59 Intake Total 400 1150 Output Total 800 Balance 400 350 Weight 78.381 kg NAD awake and alert RRR, No M/R CTA soft NT/ND no tenderness over graft site No LE edmea foot in dressing CBC, BMP 07/09/17 07:30 07/09/17 07:30 Current Medications Aspirin (Asa -) 325 mg PO DAILY [facility] Last Admin: 07/09/17 10:10 Dose: 325 mg Atorvastatin Calcium (Lipitor -) 10 mg PO HS [facility] Last Admin: 07/08/17 21:24 Dose: 10 mg Azathioprine (Imuran -) 150 mg PO DAILY [facility] Last Admin: 07/09/17 10:14 Dose: 150 mg Clopidogrel Bisulfate (Plavix -) 75 mg PO DAILY [facility] Last Admin: 07/09/17 10:11 Dose: 75 mg Sodium Chloride (Normal Saline -) 1,000 mls @ 100 mls/hr IV ASDIR [facility] Last Admin: 07/08/17 21:21 Dose: 100 mls/hr Piperacillin Sod/Tazobactam (Sod 3.375 gm/ Dextrose) 50 mls @ 100 mls/hr IVPB Q8H-IV [facility]; Protocol Vancomycin HCl 1,000 mg/ (Dextrose) 250 mls @ 166.667 mls/hr IVPB Q12H [facility]; Protocol Insulin Aspart (Novolog Vial Sliding Scale -) 1 vial SQ TIDAC [facility]; Protocol Last Admin: 07/09/17 06:00 Dose: Not Given Insulin Detemir (Levemir Vial) 30 units SQ [facility] Last Admin: 07/08/17 21:23 Dose: 30 units Isosorbide Mononitrate (Imdur -) 60 mg PO DAILY [facility] Last Admin: 07/09/17 10:10 Dose: 60 mg Nebivolol (Bystolic -) 20 mg PO DAILY [facility] Last Admin: 07/09/17 10:13 Dose: 20 mg Oxycodone HCl (Roxicodone -) 5 mg PO Q4H PRN PRN Reason: PAIN LEVEL 4 - 6 Polyethylene Glycol (Miralax (For Daily Use) -) 17 gm PO DAILY [facility] Last Admin: 07/09/17 10:22 Dose: 17 grams Prednisone (Deltasone -) 5 mg PO DAILY [facility] Last Admin: 07/09/17 10:10 Dose: 5 mg Ranitidine HCl (Zantac -) 150 mg PO DAILY [facility] Last Admin: 07/09/17 10:10 Dose: 150 mg Sitagliptin Phosphate (Januvia -) 100 mg PO DAILY [facility] Last Admin: 07/09/17 10:10 Dose: 100 mg Sodium Bicarbonate (Sodium Bicarbonate -) 650 mg PO DAILY [facility] Last Admin: 07/09/17 10:11 Dose: 650 mg Tacrolimus (Prograf) 4 mg PO BID [facility] Last Admin: 07/09/17 10:15 Dose: 4 mg Tamsulosin HCl (Flomax -) 0.4 mg PO DAILY@0830 [facility] Last Admin: 07/09/17 08:30 Dose: 0.4 mg 67 year old gentleman with PMhx of ESRD s/p Renal Transplant (3 years ago, on Prograf, Imuran, Prednisone), Hypertension, DM, Hypertension, CAD who presented with right heel swelling and pain and found to have draining wound and Cr of 1.2. #LE wound #Renal Transplant #Hypertension #Anemia Placed a call to [facility] to obtain baseline renal function and clarify meds Renal function stable throughout this admission Continue gentle IVF, if no change in renal function in 24 hours would discontinue if pt is able to tolerate an oral diet check UA Continue Tacrolimus, Imuran, Prednisone (would not hold any immunosuppressives given pt does not appear toxic) Continue Abx as per ID Vascular work up in progress Trend H/H continue Bystolic Thank you Price Carlton DO
--- NOTE | 2017-07-09 12:13 | PN ---
Progress Note (short form) - Note Progress Note: ID Consult dictated S/P I&D diabetic foot abscess S/P Renal transplant Await c/s Continue zosyn/ vanomycin
[2017-07-09] MEDS ORDERED: PIPERACILLIN/TAZOBACTAM 3.375 GM VIAL IVPB ONE ×2 (12:45→17:29)
[2017-07-09] MEDS ORDERED: DEXTROSE 5%-WATER - 50 ML IVPB ONE ×2 (12:45→17:29)
[2017-07-09] MEDS: PIPERACILLIN/TAZOB 3.375 GM 3.375 GM in DEXTROSE 5%-WATER - 50 ML IVPB SCH ×2 (12:54→18:36)
[2017-07-09] MEDS ORDERED: VANCOMYCIN 1 GM PREMIX - 1 GM/200 ML BAG IVPB SCH (13:00)
--- NOTE | 2017-07-09 14:52 | PN ---
Progress Note (short form) - Note Progress Note: asymptomatic. states he has no pain in his foot at this time. denies CP, SOB, fever, chills, N/V/C/D Current Medications Generic Name Dose Route Start Last Admin Trade Name Freq PRN Reason Stop Dose Admin Aspirin 325 mg 07/08/17 17:45 07/09/17 10:10 Asa - PO 325 mg DAILY [facility] Administration Atorvastatin Calcium 10 mg 07/08/17 22:00 07/08/17 21:24 Lipitor - PO 10 mg HS [facility] Administration Azathioprine 150 mg 07/08/17 19:45 07/09/17 10:14 Imuran - PO 150 mg DAILY [facility] Administration Clopidogrel Bisulfate 75 mg 07/08/17 16:45 07/09/17 10:11 Plavix - PO 75 mg DAILY [facility] Administration Sodium Chloride 1,000 mls @ 100 mls/hr 07/08/17 16:15 07/08/17 21:21 Normal Saline - IV 100 mls/hr ASDIR [facility] Administration Piperacillin Sod/Tazobactam 50 mls @ 100 mls/hr 07/09/17 12:45 07/09/17 12:54 Sod 3.375 gm/ Dextrose IVPB 100 mls/hr Q8H-IV [facility] Administration Protocol Vancomycin HCl 1 gm in 200 mls @ 133.333 mls/hr 07/09/17 22:00 Vancomycin 1 Gm Premix - IVPB Q12H [facility] Protocol Insulin Aspart 1 vial 07/08/17 18:15 07/09/17 12:17 Novolog Vial Sliding Scale - SQ 5 units TIDAC [facility] Administration Protocol Insulin Detemir 30 units 07/08/17 22:00 07/08/17 21:23 Levemir Vial SQ 30 units HS [facility] Administration Isosorbide Mononitrate 60 mg 07/08/17 20:00 07/09/17 10:10 Imdur - PO 60 mg DAILY [facility] Administration Nebivolol 20 mg 07/08/17 20:00 07/09/17 10:13 Bystolic - PO 20 mg DAILY [facility] Administration Oxycodone HCl 5 mg 07/08/17 16:15 Roxicodone - PO Q4H PRN PAIN LEVEL 4 - 6 Polyethylene Glycol 17 gm 07/09/17 10:00 07/09/17 10:22 Miralax (For Daily Use) - PO 17 grams DAILY [facility] Administration Prednisone 5 mg 07/08/17 20:00 07/09/17 10:10 Deltasone - PO 5 mg DAILY [facility] Administration Ranitidine HCl 150 mg 07/09/17 10:00 07/09/17 10:10 Zantac - PO 150 mg DAILY [facility] Administration Sitagliptin Phosphate 100 mg 07/09/17 10:00 07/09/17 10:10 Januvia - PO 100 mg DAILY [facility] Administration Sodium Bicarbonate 650 mg 07/09/17 10:00 07/09/17 10:11 Sodium Bicarbonate - PO 650 mg DAILY [facility] Administration Tacrolimus 4 mg 07/08/17 22:00 07/09/17 10:15 Prograf PO 4 mg BID [facility] Administration Tamsulosin HCl 0.4 mg 07/08/17 16:45 07/09/17 08:30 Flomax - PO 0.4 mg DAILY@0830 [facility] Administration Last Vital Signs Temp Pulse Resp BP Pulse Ox 99.6 F 71 20 102/57 94 L 07/09/17 06:00 07/09/17 06:00 07/08/17 23:34 07/09/17 06:00 07/09/17 09:00 General NAD CV S1 s2 + Lungs CTA Extremities LUE AV graft palpable thrill. R foot in dressing C/D/I CBCD WBC 6.0 K/mm3 (4.0-10.0) 07/09/17 07:30 RBC 3.89 M/mm3 (4.00-5.60) L 07/09/17 07:30 Hgb 11.1 GM/dL (11.7-16.9) L 07/09/17 07:30 Hct 33.8 % (35.4-49) L 07/09/17 07:30 MCV 86.8 fl (80-96) 07/09/17 07:30 MCHC 32.8 g/dl (32.0-35.9) 07/09/17 07:30 RDW 16.0 % (11.9-15.9) H 07/09/17 07:30 Plt Count 182 K/MM3 (134-434) 07/09/17 07:30 MPV 7.2 fl (7.5-11.1) L 07/09/17 07:30 CMP Sodium 139 mmol/L (136-145) 07/09/17 07:30 Potassium 4.7 mmol/L (3.5-5.1) 07/09/17 07:30 Chloride 107 mmol/L (98-107) 07/09/17 07:30 Carbon Dioxide 24 mmol/L (21-32) 07/09/17 07:30 Anion Gap 8 (8-16) 07/09/17 07:30 BUN 23 mg/dL (7-18) H 07/09/17 07:30 Creatinine 1.2 mg/dL (0.7-1.3) 07/09/17 07:30 Creat Clearance w eGFR > 60 (>60) 07/09/17 07:30 Calcium 9.2 mg/dL (8.5-10.1) 07/09/17 07:30 Total Bilirubin 0.7 mg/dL (0.2-1.0) D 07/09/17 07:30 AST 8 U/L (15-37) L D 07/09/17 07:30 ALT 12 U/L (12-78) 07/09/17 07:30 Alkaline Phosphatase 59 U/L (45-117) 07/09/17 07:30 Total Protein 5.8 g/dl (6.4-8.2) L 07/09/17 07:30 Albumin 2.9 g/dl (3.4-5.0) L 07/09/17 07:30 Microbiology 07/08/17 11:40 Blood Culture - Preliminary Blood - Peripheral Venous NO GROWTH OBTAINED AFTER 24 HOURS, INCUBATION TO CONTINUE FOR 4 DAYS. 07/08/17 11:40 Blood Culture - Preliminary Blood - Peripheral Venous NO GROWTH OBTAINED AFTER 24 HOURS, INCUBATION TO CONTINUE FOR 4 DAYS. ASSESSMENT AND PLAN: 67yo M with PMH HTN, CAD with possible stent placement, DM, s/p renal transplant due to diabetic nephropathy presented to the ER with R foot pain for 2-3days 1. Diabetic foot ulcer- concern for OM given elevated ESR. s/p bedside debridement 07/09. cx sent to micro. venous doppler done showing no significant PVD. will obtain MRI to r/o OM. On vanco/zosyn day 2. check daily vanco levels given hx of renal disease. ID, vascular surgery and podiatry on board. f/u Cx 2. GERALDINE- liekly infection and dehydration. imrpoved. cont low dose IVF. renal u/ s showing [place] kidney atrophy. nephrology consult 3. DM-improved. a1c pending. cont home regimen now that is was confirmed. iss, bgm. 4. CAD- recent cardiac cath 3 weeks ago. on plavix so possible stent placement. cont plavix 5. s/p renal transplant-cont immunosupressant therapy. renal consulted 6. DVT ppx- hep sq Visit type - Emergency Visit Emergency Visit: Yes ED Registration Date: 07/08/17 Care time: The patient presented to the Emergency Department on the above date and was hospitalized for further evaluation of their emergent condition. - New Patient This patient is new to me today: No - Critical Care Critical Care patient: No - Discharge Referral Referred to [facility] Med P.C.: No
[2017-07-09] MEDS: SODIUM CHLORIDE 1,000 ML IV SCH (15:42)
[2017-07-09 17:58] LABS: URINE APPEARANCE CLEAR; URINE BILIRUBIN NEGATIVE (<2.0 mg/dL); URINE BLOOD NEGATIVE (NEGATIVE); URINE COLOR YELLOW; URINE GLUCOSE (UA) 3+ (NEGATIVE); URINE KETONE NEGATIVE (NEGATIVE); URINE LEUK ESTERASE NEGATIVE (NEGATIVE); URINE NITRITE NEGATIVE (NEGATIVE); URINE PROTEIN NEGATIVE (NEGATIVE)
[2017-07-09] MEDS ORDERED: PIPERACILLIN/TAZOB 3.375 GM 3.375 GM in DEXTROSE 5%-WATER - 50 ML IVPB SCH (20:00)
[2017-07-09] MEDS ORDERED: INSULIN (NOVOLOG) ASPART 100 UNITS/ML 10ML VIAL ONE (21:15)
[2017-07-09] MEDS: VANCOMYCIN 1 GM PREMIX - 1 GM/200 ML BAG IVPB SCH (21:33)
[2017-07-09] MEDS: ATORVASTATIN CA 10 MG TABLET (FP) PO SCH (21:33)
[2017-07-09] MEDS: INSULIN (LEVEMIR) 100 UNITS/ML UNITS SQ SCH (21:42)
[2017-07-10] MEDS ORDERED: DEXTROSE 5%-WATER - 50 ML IVPB ONE ×3 (01:38→17:27)
[2017-07-10] MEDS ORDERED: PIPERACILLIN/TAZOBACTAM 3.375 GM VIAL IVPB ONE ×3 (01:38→17:27)
[2017-07-10] MEDS: PIPERACILLIN/TAZOB 3.375 GM 3.375 GM in DEXTROSE 5%-WATER - 50 ML IVPB SCH ×3 (01:58→17:52)
[2017-07-10] MEDS: INSULIN SLIDING SCALE (NOVOLOG) 1 VIAL SQ SCH ×3 (06:14→17:11)
[2017-07-10] MEDS: SODIUM CHLORIDE 1,000 ML IV SCH ×2 (06:16→10:56)
[2017-07-10 07:43] LABS: BASO % 0.2 % (0-2.0); EOS % 1.2 % (0-4.5); HEMATOCRIT 35.5 % (35.4-49); HEMOGLOBIN 11.8 GM/dL (11.7-16.9); LYMPH % 14.7 % (8-40); MCH 28.4 pg (25.7-33.7); MCHC 33.1 g/dl (32.0-35.9); MEAN CELL VOLUME 85.8 fl (80-96); MEAN PLT VOLUME 7.4 fl (7.5-11.1); MONO % 14.3 % (3.8-10.2); NEUT % 69.6 % (42.8-82.8); PLATELET COUNT 204 K/MM3 (134-434); RBC 4.14 M/mm3 (4.00-5.60); RDW 15.7 % (11.9-15.9); WHITE BLOOD COUNT 4.7 K/mm3 (4.0-10.0)
[2017-07-10 08:18] LABS: CHLORIDE 105 mmol/L (98-107); POTASSIUM 4.3 mmol/L (3.5-5.1); SODIUM 138 mmol/L (136-145)
[2017-07-10 08:29] LABS: ANION GAP 7 (8-16); BLOOD UREA NITROGEN 22 mg/dL (7-18); CALCIUM 9.4 mg/dL (8.5-10.1); CO2 26 mmol/L (21-32); CREATININE 1.4 mg/dL (0.7-1.3); GLUCOSE,RANDOM 299 mg/dL (74-106); MAGNESIUM 1.8 mg/dL (1.8-2.4); PHOSPHOROUS 2.8 mg/dL (2.5-4.9)
--- NOTE | 2017-07-10 09:15 | PN ---
Physical Exam: SUBJECTIVE: Patient seen and examined. No new C/O. No pain, no fevers. Had debridement of the wound. OBJECTIVE: Vital Signs Period Temp Pulse Resp BP Sys/Oliveira Pulse Ox Last 24 Hr 98.1 F-98.7 F 61-65 18-24 122-140/51-59 94 Vital Signs Temp 98.5 F 07/10/17 06:00 Pulse 61 07/10/17 06:00 Resp 24 07/10/17 06:00 BP 139/56 07/10/17 06:00 Pulse Ox 94 L 07/09/17 21:00 Intake & Output 07/07/17 07/08/17 07/09/17 07/10/17 23:59 23:59 23:59 23:59 Intake Total 400 2875 1450 Output Total 1500 1950 Balance 400 1375 -500 Weight 78.381 kg GENERAL: The patient is awake, alert, and fully oriented, in no acute distress. LUNGS: Breath sounds equal, clear to auscultation bilaterally HEART: Regular rate and rhythm, S1, S2 ABDOMEN: obese, Soft, nontender,Right sided scar with rt sided abdominal hernia , normoactive bowel sounds EXTREMITIES: 2+ pulses, warm, well-perfused, no edema. L foot in compression dressing, clean and dry NEUROLOGICAL: AAOx3, Normal speech, gait not observed. CBC, BMP 07/10/17 07:00 07/10/17 07:00 Abnormal Lab Results 07/08/17 07/09/17 07/09/17 13:30 07:30 17:00 MPV Monocytes % Anion Gap BUN 23 H Creatinine Random Glucose 117 H D Hemoglobin A1c % 9.7 H AST 8 L D Total Protein 5.8 L Albumin 2.9 L Urine Glucose (UA) 3+ H U Random Total Protein 07/09/17 07/10/17 07/10/17 17:00 07:00 07:00 MPV 7.4 L Monocytes % 14.3 H D Anion Gap 7 L BUN 22 H Creatinine 1.4 H Random Glucose 299 H D Hemoglobin A1c % AST Total Protein Albumin Urine Glucose (UA) U Random Total Protein 18 H CBC,CMP WBC 4.7 K/mm3 (4.0-10.0) 07/10/17 07:00 RBC 4.14 M/mm3 (4.00-5.60) 07/10/17 07:00 Hgb 11.8 GM/dL (11.7-16.9) 07/10/17 07:00 Hct 35.5 % (35.4-49) 07/10/17 07:00 MCV 85.8 fl (80-96) 07/10/17 07:00 MCH 28.4 pg (25.7-33.7) 07/10/17 07:00 MCHC 33.1 g/dl (32.0-35.9) 07/10/17 07:00 RDW 15.7 % (11.9-15.9) 07/10/17 07:00 Plt Count 204 K/MM3 (134-434) 07/10/17 07:00 MPV 7.4 fl (7.5-11.1) L 07/10/17 07:00 Neutrophils % 69.6 % (42.8-82.8) 07/10/17 07:00 Lymphocytes % 14.7 % (8-40) D 07/10/17 07:00 Monocytes % 14.3 % (3.8-10.2) H D 07/10/17 07:00 Eosinophils % 1.2 % (0-4.5) D 07/10/17 07:00 Basophils % 0.2 % (0-2.0) 07/10/17 07:00 Nucleated RBC % 0 % (0-0) 07/10/17 07:00 ESR 18 mm/hr (0-20) 07/08/17 11:40 Sodium 138 mmol/L (136-145) 07/10/17 07:00 Potassium 4.3 mmol/L (3.5-5.1) 07/10/17 07:00 Chloride 105 mmol/L (98-107) 07/10/17 07:00 Carbon Dioxide 26 mmol/L (21-32) 07/10/17 07:00 Anion Gap 7 (8-16) L 07/10/17 07:00 BUN 22 mg/dL (7-18) H 07/10/17 07:00 Creatinine 1.4 mg/dL (0.7-1.3) H 07/10/17 07:00 Creat Clearance w eGFR > 60 (>60) 07/09/17 07:30 POC Glucometer 385 UNITS (80-120) 07/10/17 06:14 Random Glucose 299 mg/dL (74-106) H D 07/10/17 07:00 Hemoglobin A1c % 9.7 % (4.8-6.0) H 07/08/17 13:30 Calcium 9.4 mg/dL (8.5-10.1) 07/10/17 07:00 Phosphorus 2.8 mg/dL (2.5-4.9) 07/10/17 07:00 Magnesium 1.8 mg/dL (1.8-2.4) 07/10/17 07:00 Total Bilirubin 0.7 mg/dL (0.2-1.0) D 07/09/17 07:30 AST 8 U/L (15-37) L D 07/09/17 07:30 ALT 12 U/L (12-78) 07/09/17 07:30 Alkaline Phosphatase 59 U/L (45-117) 07/09/17 07:30 C-Reactive Protein 4.9 MG/DL (0.00-0.3) H 07/08/17 13:28 Total Protein 5.8 g/dl (6.4-8.2) L 07/09/17 07:30 Albumin 2.9 g/dl (3.4-5.0) L 07/09/17 07:30 Active Medications Generic Name Dose Route Start Last Admin Trade Name Freq PRN Reason Stop Dose Admin Aspirin 325 mg 07/08/17 17:45 07/09/17 10:10 Asa - PO 325 mg DAILY [facility] Administration Atorvastatin Calcium 10 mg 07/08/17 22:00 07/09/17 21:33 Lipitor - PO 10 mg HS [facility] Administration Azathioprine 150 mg 07/08/17 19:45 07/09/17 10:14 Imuran - PO 150 mg DAILY [facility] Administration Clopidogrel Bisulfate 75 mg 07/08/17 16:45 07/09/17 10:11 Plavix - PO 75 mg DAILY [facility] Administration Collagenase 1 applic 07/10/17 10:00 Santyl - TP DAILY [facility] Sodium Chloride 1,000 mls @ 100 mls/hr 07/08/17 16:15 07/10/17 06:16 Normal Saline - IV 100 mls/hr ASDIR [facility] Administration Piperacillin Sod/Tazobactam 50 mls @ 100 mls/hr 07/09/17 12:45 07/10/17 01:58 Sod 3.375 gm/ Dextrose IVPB 100 mls/hr Q8H-IV [facility] Administration Protocol Vancomycin HCl 1 gm in 200 mls @ 133.333 mls/hr 07/09/17 22:00 07/09/17 21:33 Vancomycin 1 Gm Premix - IVPB 133.333 mls/hr Q12H [facility] Administration Protocol Insulin Aspart 1 vial 07/08/17 18:15 07/10/17 06:14 Novolog Vial Sliding Scale - SQ 10 units TIDAC [facility] Administration Protocol Insulin Detemir 30 units 07/08/17 22:00 07/09/17 21:42 Levemir Vial SQ 30 units HS [facility] Administration Isosorbide Mononitrate 60 mg 07/08/17 20:00 07/09/17 10:10 Imdur - PO 60 mg DAILY [facility] Administration Nebivolol 20 mg 07/08/17 20:00 07/09/17 10:13 Bystolic - PO 20 mg DAILY [facility] Administration Oxycodone HCl 5 mg 07/08/17 16:15 Roxicodone - PO Q4H PRN PAIN LEVEL 4 - 6 Polyethylene Glycol 17 gm 07/09/17 10:00 07/09/17 10:22 Miralax (For Daily Use) - PO 17 grams DAILY [facility] Administration Prednisone 5 mg 07/08/17 20:00 07/09/17 10:10 Deltasone - PO 5 mg DAILY [facility] Administration Ranitidine HCl 150 mg 07/09/17 10:00 07/09/17 10:10 Zantac - PO 150 mg DAILY [facility] Administration Sitagliptin Phosphate 100 mg 07/09/17 10:00 07/09/17 10:10 Januvia - PO 100 mg DAILY [facility] Administration Sodium Bicarbonate 650 mg 07/09/17 10:00 07/09/17 10:11 Sodium Bicarbonate - PO 650 mg DAILY [facility] Administration Tacrolimus 4 mg 07/08/17 22:00 07/09/17 21:34 Prograf PO 4 mg BID [facility] Administration Tamsulosin HCl 0.4 mg 07/08/17 16:45 07/09/17 08:30 Flomax - PO 0.4 mg DAILY@0830 [facility] Administration ASSESSMENT/PLAN: Pt is a 67 yo s/p renal transplant, PMHx of DM, HTN, recent CAD on clopidogrel now presenting with R heel swelling and pain for 3 days. # R Diabetic foot R/O osteomyelitis Xray of foot negative for osteomyelitis, but CRP- elevated MRI of R foot w/o contrast -no soft tissue abscess, no osteomyelitis Received zosyn 3.375mg in ED, will continue Q8H Received 1g vancomycin in ED, will continue Q12H Tabs percocet 1 Q4H PRN -pain 4-6 ID consult- Dr Vargas- appreciate Renal consult- Dr Carlton: appreciate recs Vascular- Dr Bose: Debridement done, apprec Podiatry- Dr Momin- appreciate blood culture- no growth #DM HgbA1c- 9.7 Home med reconciled Resume Levemir 30mg HS Resume Januvia 100mg daily ISS TIDAC BGM TIDAC Hold home metformin #GERALDINE Documented previous cr-0.8 to 1.0, current baseline around 1.3 Maybe secondary to dehydration IV Normal saline @100/hr Urine lytes Dr Carlton - apprec recs- no hx of renal transplant rejection KUB USS- normal transplanted kidney, atrophic [place] kidneys Cont sodium NaHCO3 Cont immunosuppressive therapy #HTN Resume home amlodipine, bystolic #s/p renal transplant On prednisone, azathioprine, astagraft- resume #CAD R/O chronic CHF Does not look decompensated at this time Cont ASA, plavix, isosorbide #HLD Continue simvastatin #BPH Cont flomax #Chronic constipation Cont miralax #PPx Cont ranitidine Continue plavix Dispo: Admit med surg Visit type - Emergency Visit Emergency Visit: Yes ED Registration Date: 07/08/17 Care time: The patient presented to the Emergency Department on the above date and was hospitalized for further evaluation of their emergent condition. - New Patient This patient is new to me today: No - Critical Care Critical Care patient: No - Discharge Referral Referred to [facility] Med P.C.: No
[2017-07-10] MEDS ORDERED: PT OWN MED DRAWER 7, Y5N ONE ×3 (09:32→21:15)
[2017-07-10] MEDS: ISOSORBIDE MONONITRATE 60 MG TAB.SR.24H (FP) PO SCH (09:35)
[2017-07-10] MEDS: TAMSULOSIN HCL 0.4 MG CAP.ER.24H (FP) PO SCH (09:35)
[2017-07-10] MEDS: CLOPIDOGREL BISULFATE 75 MG TABLET (FP) PO SCH (09:35)
[2017-07-10] MEDS: ASPIRIN 325 MG TABLET PO SCH (09:35)
[2017-07-10] MEDS: SODIUM BICARBONATE 650 MG TABLET PO SCH (09:35)
[2017-07-10] MEDS: NEBIVOLOL 10 MG TABLET (FP) PO SCH (09:36)
[2017-07-10] MEDS: azaTHIOprine 50 MG TABLET PO SCH (09:36)
[2017-07-10] MEDS: predniSONE 5 MG TABLET (UD) PO SCH (09:36)
[2017-07-10] MEDS: sitaGLIPtin PHOSPHATE 100 MG TABLET (FP) PO SCH (09:36)
[2017-07-10] MEDS: RANITIDINE HCL 150 MG TABLET (FP) PO SCH (09:36)
[2017-07-10] MEDS: TACROLIMUS ANHYDROUS 1 MG CAPSULE PO SCH ×2 (09:37→21:51)
[2017-07-10] MEDS: COLLAGENASE CLOSTRIDIUM HIST. 30 GRAMS TUBE TP SCH (09:57)
--- NOTE | 2017-07-10 09:57 | PN ---
Progress Note (short form) - Note Progress Note: Renal follow up for Renal Transplant Pt seen and examined at the bedside no acute complaints no sob, chest pain making urine no fevers Vital Signs Temperature 98.5 F 07/10/17 06:00 Pulse Rate 61 07/10/17 06:00 Respiratory Rate 24 07/10/17 06:00 Blood Pressure 139/56 07/10/17 06:00 O2 Sat by Pulse Oximetry (%) 94 L 07/09/17 21:00 Intake & Output 07/07/17 07/08/17 07/09/17 07/10/17 23:59 23:59 23:59 23:59 Intake Total 400 2875 1450 Output Total 1500 2650 Balance 400 1375 -1200 Weight 78.381 kg NAD awake and alert RRR, No M/R CTA soft NT/ND no tenderness over graft site No LE edmea foot in dressing CBC, BMP 07/10/17 07:00 07/10/17 07:00 Current Medications Aspirin (Asa -) 325 mg PO DAILY [facility] Last Admin: 07/10/17 09:35 Dose: 325 mg Atorvastatin Calcium (Lipitor -) 10 mg PO HS [facility] Last Admin: 07/09/17 21:33 Dose: 10 mg Azathioprine (Imuran -) 150 mg PO DAILY [facility] Last Admin: 07/10/17 09:36 Dose: 150 mg Clopidogrel Bisulfate (Plavix -) 75 mg PO DAILY [facility] Last Admin: 07/10/17 09:35 Dose: 75 mg Collagenase (Santyl -) 1 applic TP DAILY [facility] Sodium Chloride (Normal Saline -) 1,000 mls @ 100 mls/hr IV ASDIR [facility] Last Admin: 07/10/17 06:16 Dose: 100 mls/hr Piperacillin Sod/Tazobactam (Sod 3.375 gm/ Dextrose) 50 mls @ 100 mls/hr IVPB Q8H-IV [facility]; Protocol Last Admin: 07/10/17 01:58 Dose: 100 mls/hr Vancomycin HCl (Vancomycin 1 Gm Premix -) 1 gm in 200 mls @ 133.333 mls/hr IVPB Q12H [facility]; Protocol Last Admin: 07/09/17 21:33 Dose: 133.333 mls/hr Insulin Aspart (Novolog Vial Sliding Scale -) 1 vial SQ TIDAC [facility]; Protocol Last Admin: 07/10/17 06:14 Dose: 10 units Insulin Detemir (Levemir Vial) 30 units SQ HS [facility] Last Admin: 07/09/17 21:42 Dose: 30 units Isosorbide Mononitrate (Imdur -) 60 mg PO DAILY [facility] Last Admin: 07/10/17 09:35 Dose: 60 mg Nebivolol (Bystolic -) 20 mg PO DAILY [facility] Last Admin: 07/10/17 09:36 Dose: 20 mg Oxycodone HCl (Roxicodone -) 5 mg PO Q4H PRN PRN Reason: PAIN LEVEL 4 - 6 Polyethylene Glycol (Miralax (For Daily Use) -) 17 gm PO DAILY [facility] Last Admin: 07/09/17 10:22 Dose: 17 grams Prednisone (Deltasone -) 5 mg PO DAILY [facility] Last Admin: 07/10/17 09:36 Dose: 5 mg Ranitidine HCl (Zantac -) 150 mg PO DAILY [facility] Last Admin: 07/10/17 09:36 Dose: 150 mg Sitagliptin Phosphate (Januvia -) 100 mg PO DAILY [facility] Last Admin: 07/10/17 09:36 Dose: 100 mg Sodium Bicarbonate (Sodium Bicarbonate -) 650 mg PO DAILY [facility] Last Admin: 07/10/17 09:35 Dose: 650 mg Tacrolimus (Prograf) 4 mg PO BID [facility] Last Admin: 07/10/17 09:37 Dose: 4 mg Tamsulosin HCl (Flomax -) 0.4 mg PO DAILY@0830 [facility] Last Admin: 07/10/17 09:35 Dose: 0.4 mg 67 year old gentleman with PMhx of ESRD s/p Renal Transplant (3 years ago, on Prograf, Imuran, Prednisone), Hypertension, DM, Hypertension, CAD who presented with right heel swelling and pain and found to have draining wound and Cr of 1.2. #LE wound #Renal Transplant (baseline Cr 1.38 from 07/05/17) #Hypertension #Anemia Renal function at baseline continue Tacrolimus, Imuran, Prednisone oral intake as tolerated avoid nephrotoxins, IV contrast Thank you Price Carlton DO
[2017-07-10] MEDS: POLYETHYLENE GLYCOL 3350 119 GM BTL PO SCH (10:06)
--- NOTE | 2017-07-10 10:17 | PN ---
Teaching Attending Note Name of Resident: Nguyen Alberto ATTENDING PHYSICIAN STATEMENT I saw and evaluated the patient. I reviewed the resident's note and discussed the case with the resident. I agree with the resident's findings and plan as documented. SUBJECTIVE:asymptomatic. mild discomfort in the foot. denies CP, SOB, fever, chills, N/V/C/D OBJECTIVE: Last Vital Signs Temp Pulse Resp BP Pulse Ox 97.2 F L 62 20 138/56 94 L 07/10/17 10:07/10/17 10:07/10/17 10:07/10/17 10:07/09/17 21:00 General NAD Extremities R foot in dressing c/d/i ASSESSMENT AND PLAN: 67yo M with PMH HTN, CAD with possible stent placement, DM, s/p renal transplant due to diabetic nephropathy presented to the ER with R foot pain for 2-3days 1. Diabetic foot ulcer- concern for OM given elevated ESR. s/p bedside debridement /. cx sent to [facility]. MRI done awaiting read. venous doppler done showing no significant PVD. will obtain MRI to r/o OM. On vanco/zosyn day 3. check daily vanco levels given hx of renal disease. ID, vascular surgery and podiatry on board. BCx negative. f/u Cx 2. GERALDINE- liekly infection and dehydration. baselin Cr 1.3. improved. cont low dose IVF. renal u/s showing [place] kidney atrophy. nephrology consult 3. DM-improved. a1c pending. cont home regimen now that is was confirmed. iss, bgm. 4. CAD- recent cardiac cath 3 weeks ago. on plavix so possible stent placement. cont plavix 5. s/p renal transplant-cont immunosupressant therapy. renal consulted 6. DVT ppx- hep sq
[2017-07-10] MEDS ORDERED: INSULIN (NOVOLOG) ASPART 100 UNITS/ML 10ML VIAL ONE (11:55)
[2017-07-10] MEDS: VANCOMYCIN 1 GM PREMIX - 1 GM/200 ML BAG IVPB SCH ×2 (12:48→21:50)
--- NOTE | 2017-07-10 14:07 | PN ---
Progress Note, Physician History of Present Illness: OOB in chair No c/o foot pain No fever/ chills Temps down Afebrile WBC 4.7 Blood, wound c/s pending - Current Medication List Current Medications: Active Medications Aspirin (Asa -) 325 mg PO DAILY [facility] Last Admin: 07/10/17 09:35 Dose: 325 mg Atorvastatin Calcium (Lipitor -) 10 mg PO HS [facility] Last Admin: 07/09/17 21:33 Dose: 10 mg Azathioprine (Imuran -) 150 mg PO DAILY [facility] Last Admin: 07/10/17 09:36 Dose: 150 mg Clopidogrel Bisulfate (Plavix -) 75 mg PO DAILY [facility] Last Admin: 07/10/17 09:35 Dose: 75 mg Collagenase (Santyl -) 1 applic TP DAILY [facility] Last Admin: 07/10/17 09:57 Dose: 1 applic Piperacillin Sod/Tazobactam (Sod 3.375 gm/ Dextrose) 50 mls @ 100 mls/hr IVPB Q8H-IV [facility]; Protocol Last Admin: 07/10/17 10:06 Dose: 100 mls/hr Vancomycin HCl (Vancomycin 1 Gm Premix -) 1 gm in 200 mls @ 133.333 mls/hr IVPB Q12H [facility]; Protocol Last Admin: 07/10/17 12:48 Dose: 133.333 mls/hr Sodium Chloride (Normal Saline -) 1,000 mls @ 75 mls/hr IV ASDIR [facility] Last Admin: 07/10/17 10:56 Dose: 75 mls/hr Insulin Aspart (Novolog Vial Sliding Scale -) 1 vial SQ TIDAC [facility]; Protocol Last Admin: 07/10/17 11:57 Dose: 6 units Insulin Detemir (Levemir Vial) 30 units SQ [facility] Last Admin: 07/09/17 21:42 Dose: 30 units Isosorbide Mononitrate (Imdur -) 60 mg PO DAILY [facility] Last Admin: 07/10/17 09:35 Dose: 60 mg Nebivolol (Bystolic -) 20 mg PO DAILY [facility] Last Admin: 07/10/17 09:36 Dose: 20 mg Oxycodone HCl (Roxicodone -) 5 mg PO Q4H PRN PRN Reason: PAIN LEVEL 4 - 6 Polyethylene Glycol (Miralax (For Daily Use) -) 17 gm PO DAILY [facility] Last Admin: 07/10/17 10:06 Dose: 17 grams Prednisone (Deltasone -) 5 mg PO DAILY [facility] Last Admin: 07/10/17 09:36 Dose: 5 mg Ranitidine HCl (Zantac -) 150 mg PO DAILY [facility] Last Admin: 07/10/17 09:36 Dose: 150 mg Sitagliptin Phosphate (Januvia -) 100 mg PO DAILY [facility] Last Admin: 07/10/17 09:36 Dose: 100 mg Sodium Bicarbonate (Sodium Bicarbonate -) 650 mg PO DAILY [facility] Last Admin: 07/10/17 09:35 Dose: 650 mg Tacrolimus (Prograf) 4 mg PO BID [facility] Last Admin: 07/10/17 09:37 Dose: 4 mg Tamsulosin HCl (Flomax -) 0.4 mg PO DAILY@0830 [facility] Last Admin: 07/10/17 09:35 Dose: 0.4 mg - Objective Vital Signs: Vital Signs Temperature 97.2 F L 07/10/17 10:00 Pulse Rate 62 07/10/17 10:00 Respiratory Rate 20 07/10/17 10:00 Blood Pressure 138/56 07/10/17 10:00 O2 Sat by Pulse Oximetry (%) 94 L 07/09/17 21:00 Constitutional: Yes: No Distress Eyes: Yes: Conjunctiva Clear Cardiovascular: Yes: Regular Rate and Rhythm, S1, S2 Respiratory: Yes: CTA Bilaterally Gastrointestinal: Yes: Normal Bowel Sounds, Soft. No: Tenderness Extremities: Yes: Other (R foot Charcot joint. 2cm plantar ulcer. Clean . Bloody drainage on dressing) Labs: CBC, BMP 07/10/17 07:00 07/10/17 07:00 INR, PTT INR 1.06 (0.82-1.09) 07/08/17 11:40 Assessment/Plan Diabetic foot infection Diabetes mellitus S/P renal transplant Await c/s Continue empiric vancomycin/ zosyn
--- NOTE | 2017-07-10 15:12 | CONS ---
DATE OF CONSULTATION: 07/09/2017 The patient is a 67-year-old diabetic male with a history of renal transplant, evaluated for right foot abscess. He reports that he scraped the bottom of his feet several days prior to admission. He subsequently developed a swelling with purulent wound drainage. He reported associated fever, chills. He presented to the emergency room, where an x-ray showed destruction of the 5th metatarsal head, which was likely chronic in nature. He was noted to be febrile at 102.4. Cultures were obtained. He was empirically treated with vancomycin and Zosyn. He was seen in consultation by Surgery and debridement was performed. Past medical history positive for insulin-dependent diabetes mellitus, chronic kidney disease, status post renal transplant approximately 3 years ago, hypertension, coronary artery disease, history of diabetic foot infections in the past. PAST SURGICAL HISTORY: Status post hernia repair and resection of the right 5th metatarsal. No known allergies. MEDICATIONS: Norvasc, Plavix, Glucerna, Zantac, Zocor, tacrolimus, Flomax, Glucophage. SOCIAL HISTORY: Nonsmoker, nondrinker. SYSTEMS REVIEW: Neurologic: No loss of consciousness or seizure activity. Cardiac: Negative chest pain or palpitations. Respiratory: Negative cough or sputum production. Gastrointestinal: Negative vomiting or diarrhea. Genitourinary: Positive for renal transplant. LABORATORY DATA: White count 6.0, hematocrit 33.8, platelet count 182, BUN 23, creatinine 1.2, ESR 18, C-reactive protein 4.9, total bilirubin 23, alkaline phosphatase 1.2. PHYSICAL EXAMINATION: General: He is awake and alert, he is not acutely toxic appearing, out of bed to chair. Vital Signs: Temperature 99.6, T-max 102.4. Blood pressure 102/57. Pulse 71, regular. Respirations 20 per minute. Eyes: Sclerae anicteric. Heart Sounds: S1, S2. Lungs: Clear bilaterally. No rhonchi, rales, or wheezing. Abdomen: Soft. No tenderness elicited. No mass, rebound or rigidity. Extremities: Examination of the right foot: Patient has a Charcot joint, plantar ulceration present on the middle part of the foot, approximately 2 cm in diameter. IMPRESSION: 1. Diabetic foot infection. 2. Insulin-dependent diabetes mellitus. 3. Status post renal transplant. 4. High-grade fever, rule out sepsis secondary to foot infection. Await culture results, surgical evaluation, empiric antibiotic coverage with vancomycin and Zosyn. Thank you for the kind referral. ALFRED FITZGERALD M.D. MARTY/[id number]
[2017-07-10] MEDS: ATORVASTATIN CA 10 MG TABLET (FP) PO SCH (21:50)
[2017-07-10] MEDS: INSULIN (LEVEMIR) 100 UNITS/ML UNITS SQ SCH (21:50)
--- NOTE | 2017-07-10 22:29 | EKG ---
Test Reason : Blood Pressure : / mmHG Vent. Rate : 080 BPM Atrial Rate : 080 BPM P-R Int : 166 ms QRS Dur : 090 ms QT Int : 352 ms P-R-T Axes : 064 -27 049 degrees QTc Int : 405 ms NORMAL SINUS RHYTHM NORMAL ECG WHEN COMPARED WITH ECG OF 16-DEC-2014 14:27, NO SIGNIFICANT CHANGE WAS FOUND Confirmed by TASHI PARADA MD ([id number]) on 07/10/2017 10:28:38 PM Referred By: Confirmed By:TASHI PARADA MD
[2017-07-11] MEDS ORDERED: DEXTROSE 5%-WATER - 50 ML IVPB ONE ×3 (00:46→17:32)
[2017-07-11] MEDS ORDERED: PIPERACILLIN/TAZOBACTAM 3.375 GM VIAL IVPB ONE ×3 (00:46→17:32)
[2017-07-11] MEDS: PIPERACILLIN/TAZOB 3.375 GM 3.375 GM in DEXTROSE 5%-WATER - 50 ML IVPB SCH ×3 (01:03→17:40)
[2017-07-11] MEDS: SODIUM CHLORIDE 1,000 ML IV SCH (01:06)
[2017-07-11] MEDS: INSULIN SLIDING SCALE (NOVOLOG) 1 VIAL SQ SCH ×3 (06:34→17:45)
[2017-07-11 06:46] LABS: BASO % 0.5 % (0-2.0); EOS % 2.5 % (0-4.5); HEMATOCRIT 34.7 % (35.4-49); HEMOGLOBIN 11.6 GM/dL (11.7-16.9); MCH 28.7 pg (25.7-33.7); MCHC 33.3 g/dl (32.0-35.9); MEAN CELL VOLUME 86.3 fl (80-96); MEAN PLT VOLUME 7.1 fl (7.5-11.1); MONO % 15.3 % (3.8-10.2); NEUT % 59.7 % (42.8-82.8); PLATELET COUNT 214 K/MM3 (134-434); RBC 4.02 M/mm3 (4.00-5.60); RDW 15.4 % (11.9-15.9); WHITE BLOOD COUNT 4.2 K/mm3 (4.0-10.0)
[2017-07-11 07:16] LABS: ANION GAP 4 (8-16); BLOOD UREA NITROGEN 24 mg/dL (7-18); CALCIUM 9.3 mg/dL (8.5-10.1); CHLORIDE 108 mmol/L (98-107); CO2 27 mmol/L (21-32); CREATININE 1.3 mg/dL (0.7-1.3); GLUCOSE,RANDOM 201 mg/dL (74-106); MAGNESIUM 1.6 mg/dL (1.8-2.4); PHOSPHOROUS 2.8 mg/dL (2.5-4.9); POTASSIUM 4.5 mmol/L (3.5-5.1); SODIUM 139 mmol/L (136-145)
--- NOTE | 2017-07-11 09:01 | PN ---
Progress Note (short form) - Note Progress Note: ID Patient seen and examined at bedside remains afebrile WBC count WNL patient states he feels much better Vital Signs Period Temp Pulse Resp BP Sys/Oliveira Pulse Ox Last 24 Hr 97.2 F-99.1 F 60-62 18-20 133-140/49-59 96 PE: NAD lying in bed RRR S1 S2 no murmurs soft non tender non distended extremities: no edema. right foot with 2CM plantar ulcer with serous drainage and fibrous exudate. Microbiology 07/09/17 10:40 Foot - Right Sole Gram Stain - Final 07/09/17 10:40 Foot - Right Sole Wound Culture - Preliminary 07/08/17 11:40 Blood - Peripheral Venous Blood Culture - Preliminary NO GROWTH OBTAINED AFTER 48 HOURS, INCUBATION TO CONTINUE FOR 3 DAYS. 07/08/17 11:40 Blood - Peripheral Venous Blood Culture - Preliminary NO GROWTH OBTAINED AFTER 48 HOURS, INCUBATION TO CONTINUE FOR 3 DAYS. Laboratory Last Values WBC 4.2 K/mm3 (4.0-10.0) 07/11/17 06:35 RBC 4.02 M/mm3 (4.00-5.60) 07/11/17 06:35 Hgb 11.6 GM/dL (11.7-16.9) L 07/11/17 06:35 Hct 34.7 % (35.4-49) L 07/11/17 06:35 MCV 86.3 fl (80-96) 07/11/17 06:35 MCH 28.7 pg (25.7-33.7) 07/11/17 06:35 MCHC 33.3 g/dl (32.0-35.9) 07/11/17 06:35 RDW 15.4 % (11.9-15.9) 07/11/17 06:35 Plt Count 214 K/MM3 (134-434) 07/11/17 06:35 MPV 7.1 fl (7.5-11.1) L 07/11/17 06:35 Neutrophils % 59.7 % (42.8-82.8) 07/11/17 06:35 Lymphocytes % 22.0 % (8-40) D 07/11/17 06:35 Monocytes % 15.3 % (3.8-10.2) H 07/11/17 06:35 Eosinophils % 2.5 % (0-4.5) D 07/11/17 06:35 Basophils % 0.5 % (0-2.0) 07/11/17 06:35 Nucleated RBC % 0 % (0-0) 07/11/17 06:35 ESR 18 mm/hr (0-20) 07/08/17 11:40 PT with INR 12.00 SEC (9.7-13.0) 07/08/17 11:40 INR 1.06 (0.82-1.09) 07/08/17 11:40 Sodium 139 mmol/L (136-145) 07/11/17 06:35 Potassium 4.5 mmol/L (3.5-5.1) 07/11/17 06:35 Chloride 108 mmol/L (98-107) H 07/11/17 06:35 Carbon Dioxide 27 mmol/L (21-32) 07/11/17 06:35 Anion Gap 4 (8-16) L 07/11/17 06:35 BUN 24 mg/dL (7-18) H 07/11/17 06:35 Creatinine 1.3 mg/dL (0.7-1.3) 07/11/17 06:35 Creat Clearance w eGFR > 60 (>60) 07/09/17 07:30 POC Glucometer 196 UNITS (80-120) 07/11/17 05:54 Random Glucose 201 mg/dL (74-106) H D 07/11/17 06:35 Hemoglobin A1c % 9.7 % (4.8-6.0) H 07/08/17 13:30 Calcium 9.3 mg/dL (8.5-10.1) 07/11/17 06:35 Phosphorus 2.8 mg/dL (2.5-4.9) 07/11/17 06:35 Magnesium 1.6 mg/dL (1.8-2.4) L 07/11/17 06:35 Total Bilirubin 0.7 mg/dL (0.2-1.0) D 07/09/17 07:30 AST 8 U/L (15-37) L D 07/09/17 07:30 ALT 12 U/L (12-78) 07/09/17 07:30 Alkaline Phosphatase 59 U/L (45-117) 07/09/17 07:30 C-Reactive Protein 4.9 MG/DL (0.00-0.3) H 07/08/17 13:28 Total Protein 5.8 g/dl (6.4-8.2) L 07/09/17 07:30 Albumin 2.9 g/dl (3.4-5.0) L 07/09/17 07:30 Urine Color Yellow 07/09/17 17:00 Urine Appearance Clear 07/09/17 17:00 Urine pH 6.0 (5.0-8.0) 07/09/17 17:00 Ur Specific Stitzer 1.011 (1.001-1.035) 07/09/17 17:00 Urine Protein Negative (NEGATIVE) 07/09/17 17:00 Urine Glucose (UA) 3+ (NEGATIVE) H 07/09/17 17:00 Urine Ketones Negative (NEGATIVE) 07/09/17 17:00 Urine Blood Negative (NEGATIVE) 07/09/17 17:00 Urine Nitrite Negative (NEGATIVE) 07/09/17 17:00 Urine Bilirubin Negative (<2.0 mg/dL) 07/09/17 17:00 Urine Urobilinogen 2.0 mg/dL (0.2-1.0) 07/09/17 17:00 Ur Leukocyte Esterase Negative (NEGATIVE) 07/09/17 17:00 U Random Total Protein 18 mg/dl (5-11.9) H 07/09/17 17:00 Ur Random Sodium 134 MMOL/L 07/08/17 17:30 Ur Random Potassium 26.7 MMOL/L 07/08/17 17:30 Ur Random Chloride 135 MMOL/L 07/08/17 17:30 Urine Creatinine 69.8 mg/dL (20-370) 07/09/17 17:00 Random Vancomycin 24.074 ug/ml 07/11/17 06:00 A/P: 67M with infected plantar ulcer presented with sepsis. Problem List: DM-uncontrolled CAD diabetic foot ulcer-sepsis resolved s/p renal transplant 3 years ago GERALDINE Plan: cultures with no growth so far-Gram stain with diplococci random vancomycin level is 24 will hold vancomycin for now as patient is a renal transplant patient and will order repeat random vancomycin level for tomorrow AM will likely deescalate ABx after today-continue IV ABx for now Case discussed with Dr. Vargas
[2017-07-11] MEDS ORDERED: PT OWN MED DRAWER 7, Y5N ONE (09:33)
[2017-07-11] MEDS: CLOPIDOGREL BISULFATE 75 MG TABLET (FP) PO SCH (09:44)
[2017-07-11] MEDS: NEBIVOLOL 10 MG TABLET (FP) PO SCH (09:44)
[2017-07-11] MEDS: SODIUM BICARBONATE 650 MG TABLET PO SCH (09:45)
[2017-07-11] MEDS: ISOSORBIDE MONONITRATE 60 MG TAB.SR.24H (FP) PO SCH (09:45)
[2017-07-11] MEDS: predniSONE 5 MG TABLET (UD) PO SCH (09:45)
[2017-07-11] MEDS: TAMSULOSIN HCL 0.4 MG CAP.ER.24H (FP) PO SCH (09:45)
[2017-07-11] MEDS: RANITIDINE HCL 150 MG TABLET (FP) PO SCH (09:45)
[2017-07-11] MEDS: sitaGLIPtin PHOSPHATE 100 MG TABLET (FP) PO SCH (09:45)
[2017-07-11] MEDS: ASPIRIN 325 MG TABLET PO SCH (09:46)
[2017-07-11] MEDS: azaTHIOprine 50 MG TABLET PO SCH (09:47)
[2017-07-11] MEDS: TACROLIMUS ANHYDROUS 1 MG CAPSULE PO SCH ×2 (09:47→21:32)
[2017-07-11] MEDS: POLYETHYLENE GLYCOL 3350 119 GM BTL PO SCH (09:47)
[2017-07-11] MEDS ORDERED: MAGNESIUM OXIDE 400 MG TABLET (FP) PO ONE (11:00)
[2017-07-11] MEDS: COLLAGENASE CLOSTRIDIUM HIST. 30 GRAMS TUBE TP SCH (12:15)
[2017-07-11] MEDS ORDERED: MAGNESIUM 1GM/D5W 100ML - 100 ML IVPB IVPB ONE (12:15)
--- NOTE | 2017-07-11 13:42 | PN ---
Teaching Attending Note Name of Resident: Dillan Mcmullen ATTENDING PHYSICIAN STATEMENT I saw and evaluated the patient. I reviewed the resident's note and discussed the case with the resident. I agree with the resident's findings and plan as documented. SUBJECTIVE: s/p drainage of plantar abscess by surgery over the w/e MRI no osteomyelitis OBJECTIVE: Vital Signs Period Temp Pulse Resp BP Sys/Oliveira Pulse Ox Last 24 Hr 98.5 F-99.1 F 60-62 18-20 133-140/49-59 96 cor-rrr llungs clear foot with plantar ulcer, minimal serous drainage and erythema no pus CBC, BMP 07/11/17 06:35 07/11/17 06:35 ASSESSMENT AND PLAN: a/p diabetic foot infection renal transplant f/u cultures suspect can transition to po antibiotics with wound care f/u in am d/c vancomycin continue zosyn for now
--- NOTE | 2017-07-11 13:56 | PN ---
Physical Exam: SUBJECTIVE: Patient seen and examined. No pain, has not needed pain mx. Has been having the wound dressed by the surgeon OBJECTIVE: Vital Signs Period Temp Pulse Resp BP Sys/Oliveira Pulse Ox Last 24 Hr 98.5 F-99.1 F 60-62 18-20 133-140/49-59 96 Vital Signs Temp 99.1 F 07/11/17 05:36 Pulse 60 07/11/17 05:36 Resp 20 07/11/17 05:36 BP 140/58 07/11/17 05:36 Pulse Ox 96 07/10/17 21:00 Intake & Output 07/10/17 07/11/17 07/11/17 23:59 11:59 23:59 Intake Total 1750 1187 375 Output Total 1300 2000 Balance 450 -813 375 Intake: IV 900 862 Normal Saline - 1,000 ml 900 862 @ 75 mls/hr IV ASDIR [facility] Rx#:[id number] IVPB 50 50 Oral 800 275 375 Output: Urine 1300 2000 Void 1300 2000 Other: Voiding Method Urinal Toilet # Unmeasured Voids Void 2 Bowel Movement No No # Bowel Movements 0 GENERAL: The patient is awake, alert, and fully oriented, in no acute distress. LUNGS: Breath sounds equal, clear to auscultation bilaterally HEART: Regular rate and rhythm, S1, S2 without murmur ABDOMEN: Obese, Soft, nontender, normoactive bowel sounds EXTREMITIES: 2+ pulses, warm, well-perfused, no edema. L AV fistula with bruit present NEUROLOGICAL: AAOx3. Normal speech, gait not observed. CBC, BMP 07/11/17 06:35 07/11/17 06:35 Laboratory Results - last 24 hr 07/10/17 07/10/17 07/11/17 17:03 21:48 05:54 WBC RBC Hgb Hct MCV MCH MCHC RDW Plt Count MPV Neutrophils % Lymphocytes % Monocytes % Eosinophils % Basophils % Nucleated RBC % Sodium Potassium Chloride Carbon Dioxide Anion Gap BUN Creatinine POC Glucometer 228 303 196 Random Glucose Calcium Phosphorus Magnesium Random Vancomycin 07/11/17 07/11/17 07/11/17 06:00 06:35 06:35 WBC 4.2 RBC 4.02 Hgb 11.6 L Hct 34.7 L MCV 86.3 MCH 28.7 MCHC 33.3 RDW 15.4 Plt Count 214 MPV 7.1 L Neutrophils % 59.7 Lymphocytes % 22.0 D Monocytes % 15.3 H Eosinophils % 2.5 D Basophils % 0.5 Nucleated RBC % 0 Sodium 139 Potassium 4.5 Chloride 108 H Carbon Dioxide 27 Anion Gap 4 L BUN 24 H Creatinine 1.3 POC Glucometer Random Glucose 201 H D Calcium 9.3 Phosphorus 2.8 Magnesium 1.6 L Random Vancomycin 24.074 07/11/17 11:48 WBC RBC Hgb Hct MCV MCH MCHC RDW Plt Count MPV Neutrophils % Lymphocytes % Monocytes % Eosinophils % Basophils % Nucleated RBC % Sodium Potassium Chloride Carbon Dioxide Anion Gap BUN Creatinine POC Glucometer 139 Random Glucose Calcium Phosphorus Magnesium Random Vancomycin Active Medications Generic Name Dose Route Start Last Admin Trade Name Freq PRN Reason Stop Dose Admin Aspirin 325 mg 07/08/17 17:45 07/11/17 09:46 Asa - PO 325 mg DAILY [facility] Administration Atorvastatin Calcium 10 mg 07/08/17 22:00 07/10/17 21:50 Lipitor - PO 10 mg HS [facility] Administration Azathioprine 150 mg 07/08/17 19:45 07/11/17 09:47 Imuran - PO 150 mg DAILY [facility] Administration Clopidogrel Bisulfate 75 mg 07/08/17 16:45 07/11/17 09:44 Plavix - PO 75 mg DAILY [facility] Administration Collagenase 1 applic 07/10/17 10:00 07/11/17 12:15 Santyl - TP 1 applic DAILY [facility] Administration Piperacillin Sod/Tazobactam 50 mls @ 100 mls/hr 07/09/17 12:45 07/11/17 09:47 Sod 3.375 gm/ Dextrose IVPB 100 mls/hr Q8H-IV [facility] Administration Protocol Vancomycin HCl 1 gm in 200 mls @ 133.333 mls/hr 07/09/17 22:00 07/10/17 21:50 Vancomycin 1 Gm Premix - IVPB 133.333 mls/hr Q12H [facility] Administration Protocol Insulin Aspart 1 vial 07/08/17 18:15 07/11/17 06:34 Novolog Vial Sliding Scale - SQ 4 units TIDAC [facility] Administration Protocol Insulin Detemir 30 units 07/08/17 22:00 07/10/17 21:50 Levemir Vial SQ 30 units HS [facility] Administration Isosorbide Mononitrate 60 mg 07/08/17 20:00 07/11/17 09:45 Imdur - PO 60 mg DAILY [facility] Administration Nebivolol 20 mg 07/08/17 20:00 07/11/17 09:44 Bystolic - PO 20 mg DAILY [facility] Administration Oxycodone HCl 5 mg 07/08/17 16:15 Roxicodone - PO Q4H PRN PAIN LEVEL 4 - 6 Polyethylene Glycol 17 gm 07/09/17 10:00 07/11/17 09:47 Miralax (For Daily Use) - PO 17 grams DAILY [facility] Administration Prednisone 5 mg 07/08/17 20:00 07/11/17 09:45 Deltasone - PO 5 mg DAILY [facility] Administration Ranitidine HCl 150 mg 07/09/17 10:00 07/11/17 09:45 Zantac - PO 150 mg DAILY [facility] Administration Sitagliptin Phosphate 100 mg 07/09/17 10:00 07/11/17 09:45 Januvia - PO 100 mg DAILY [facility] Administration Sodium Bicarbonate 650 mg 07/09/17 10:00 07/11/17 09:45 Sodium Bicarbonate - PO 650 mg DAILY [facility] Administration Tacrolimus 4 mg 07/08/17 22:00 07/11/17 09:47 Prograf PO 4 mg BID [facility] Administration Tamsulosin HCl 0.4 mg 07/08/17 16:45 07/11/17 09:45 Flomax - PO 0.4 mg DAILY@0830 [facility] Administration MRI of R foot w/o contrast -no soft tissue abscess, no osteomyelitis Xray of foot negative for osteomyelitis Microbiology 07/09/17 10:40 Foot - Right Sole Gram Stain - Final 07/09/17 10:40 Foot - Right Sole Wound Culture - Preliminary Strep Agalactiae Group B Anaerobic Cocci 07/08/17 11:40 Blood - Peripheral Venous Blood Culture - Preliminary NO GROWTH OBTAINED AFTER 72 HOURS, INCUBATION TO CONTINUE FOR 2 DAYS. 07/08/17 11:40 Blood - Peripheral Venous Blood Culture - Preliminary NO GROWTH OBTAINED AFTER 72 HOURS, INCUBATION TO CONTINUE FOR 2 DAYS. ASSESSMENT/PLAN: Pt is a 67 yo s/p renal transplant, PMHx of DM, HTN, recent CAD on clopidogrel now presenting with R heel swelling and pain for 3 days. # R Diabetic foot R/O osteomyelitis Received zosyn 3.375mg in ED, will continue Q8H was on 1g vancomycin Q12H- had elevated levels, with micro not showing MRSA per ID can discontinue Vanc Tabs percocet 1 Q4H PRN -pain 4-6- has not needed ID consult- Dr Vargas- appreciate Renal consult- Dr Carlton: appreciate recs Vascular- Dr Bose: Debridement done, apprec- pending wound dressing instructions, in touc with his office Podiatry- Dr Momin- appreciate To be changed to PO antibiotics from vancomycin tomorrow for likely D/C Would benefit from VNS, could also follow with wound clinic #DM HgbA1c- 9.7 Home med reconciled Resume Levemir 30mg HS Resume Januvia 100mg daily ISS TIDAC BGM [facility]IDAC Hold home metformin Needing sliding scale insulin #GERALDINE Documented previous cr-0.8 to 1.0, current baseline around 1.3 Maybe secondary to dehydration IV Normal saline @100/hr Urine lytes Dr Carlton - apprec recs- no hx of renal transplant rejection KUB USS- normal transplanted kidney, atrophic ambler kidneys Cont sodium NaHCO3 Cont immunosuppressive therapy #HTN Resume home amlodipine, bystolic #s/p renal transplant On prednisone, azathioprine, astagraft- resume #CAD R/O chronic CHF Does not look decompensated at this time Cont ASA, plavix, isosorbide #HLD Continue simvastatin #BPH Cont flomax #Chronic constipation Cont miralax #PPx Cont ranitidine Continue plavix Dispo: med surg Likely D/C tomorrow am to follow with wound clinic and VNS Visit type - Emergency Visit Emergency Visit: Yes ED Registration Date: 07/08/17 Care time: The patient presented to the Emergency Department on the above date and was hospitalized for further evaluation of their emergent condition. - New Patient This patient is new to me today: No - Critical Care Critical Care patient: No - Discharge Referral Referred to [facility] Med P.C.: No
--- NOTE | 2017-07-11 14:12 | PN ---
Progress Note (short form) - Note Progress Note: Podiatry: Seen/evaluated at bedside, NAD. Pain on and off, however controlled. Denies F/ V/N/C/SOB/CP. Fevers brokens, currently afebrile. ANGIE: R foot: pedal pulses weakly palpable, TG wnl, CFT brisk to all toes. Plantar midfoot Charcot ulcer with mixed fibrogranular base, hyperkeratotic borders, no probing to bone, no purulence, no fluctuance, no ascending cellulitis, no signs of active infection. Moderate tenderness to palpation. Wound Cx: strep B; anaerobic cocci Imp: 67 year old DM M with R plantar midfoot Charcot ulcer 1. IV abx per ID 2. Continue santyl for local wound care 3. Patient instructed to minimize weightbearing 4. Patient can f/u upon discharge at wound healing center Hue Momin DPM
--- NOTE | 2017-07-11 14:24 | PN ---
Teaching Attending Note Name of Resident: Nguyen Alberto ATTENDING PHYSICIAN STATEMENT I saw and evaluated the patient. I reviewed the resident's note and discussed the case with the resident. I agree with the resident's findings and plan as documented. SUBJECTIVE:asymptomatic. denies Cp, SOB, fever, chills, N/V/C/D OBJECTIVE: Last Vital Signs Temp Pulse Resp BP Pulse Ox 99.1 F 60 20 140/58 96 07/11/17 05:36 07/11/17 05:36 07/11/17 05:36 07/11/17 05:36 07/10/17 21:00 General NAD Extremities R foot in dressing c/d/i ASSESSMENT AND PLAN: 67yo M with PMH HTN, CAD with possible stent placement, DM, s/p renal transplant due to diabetic nephropathy presented to the ER with R foot pain for 2-3days 1. Diabetic foot ulcer- s/p bedside debridement 07/09. MRI negative for OM. awaiting final Cx report. vanco d/c. cont zosyn day 4. can likely transition to po in the morning. podiatry states will cut toenails tomorrow. ID, podiatry and vascular on board. f/u Cx 2. GERALDINE- liekly infection and dehydration. baselin Cr 1.3. improved. d/c IVF. nephrology consult 3. DM-improved. a1c pending. cont home regimen now that is was confirmed. iss, bgm. 4. CAD- recent cardiac cath 3 weeks ago. on plavix so possible stent placement. cont plavix 5. s/p renal transplant-cont immunosupressant therapy. renal consulted 6. DVT ppx- hep sq 7. likely discharge tomorrow
--- NOTE | 2017-07-11 14:25 | PN ---
Progress Note (short form) - Note Progress Note: Arterial Doppler and DUplex do not show any major vascular occlusive disease of the right leg. MARY KAY 0.9/ No further vascular imaging or intervention indicated at this time. Wound care with Santyl and follow-up in clinic. Problem List - Problems (1) Diabetes mellitus type 2 with atherosclerosis of arteries of extremities Code(s): E11.51 - TYPE 2 DIABETES W DIABETIC PERIPHERAL ANGIOPATH W/O GANGRENE; I70.209 - UNSP ATHSCL [place] ARTERIES OF EXTREMITIES, UNSP EXTREMITY (2) Diabetic foot ulcer Code(s): E11.621 - TYPE 2 DIABETES MELLITUS WITH FOOT ULCER; L97.509 - NON- PRESSURE CHRONIC ULCER OTH PRT UNSP FOOT W UNSP SEVERITY Qualifiers: Qualified Code(s): E11.621 - Type 2 diabetes mellitus with foot ulcer; L97.412 - Non-pressure chronic ulcer of right heel and midfoot with fat layer exposed
[2017-07-11] MEDS ORDERED: INSULIN (NOVOLOG) ASPART 100 UNITS/ML 10ML VIAL ONE (18:08)
--- NOTE | 2017-07-11 20:58 | PN ---
Progress Note (short form) - Note Progress Note: Renal follow up for Renal Transplant Pt seen and examined at the bedside no acute complaints Vital Signs Temperature 98.8 F 07/11/17 15:19 Pulse Rate 62 07/11/17 15:19 Respiratory Rate 20 07/11/17 09:00 Blood Pressure 140/58 07/11/17 09:00 O2 Sat by Pulse Oximetry (%) 96 07/11/17 20:31 NAD awake and alert RRR, No M/R CTA soft NT/ND no tenderness over graft site No LE edmea foot in dressing CBC, BMP 07/11/17 06:35 07/11/17 06:35 Current Medications Aspirin (Asa -) 325 mg PO DAILY [facility] Last Admin: 07/11/17 09:46 Dose: 325 mg Atorvastatin Calcium (Lipitor -) 10 mg PO HS [facility] Last Admin: 07/10/17 21:50 Dose: 10 mg Azathioprine (Imuran -) 150 mg PO DAILY [facility] Last Admin: 07/11/17 09:47 Dose: 150 mg Clopidogrel Bisulfate (Plavix -) 75 mg PO DAILY [facility] Last Admin: 07/11/17 09:44 Dose: 75 mg Collagenase (Santyl -) 1 applic TP DAILY [facility] Last Admin: 07/11/17 12:15 Dose: 1 applic Piperacillin Sod/Tazobactam (Sod 3.375 gm/ Dextrose) 50 mls @ 100 mls/hr IVPB Q8H-IV [facility]; Protocol Last Admin: 07/11/17 17:40 Dose: 100 mls/hr Insulin Aspart (Novolog Vial Sliding Scale -) 1 vial SQ TIDAC [facility]; Protocol Last Admin: 07/11/17 17:45 Dose: 5 units Insulin Detemir (Levemir Vial) 30 units SQ [facility] Last Admin: 07/10/17 21:50 Dose: 30 units Isosorbide Mononitrate (Imdur -) 60 mg PO DAILY [facility] Last Admin: 07/11/17 09:45 Dose: 60 mg Nebivolol (Bystolic -) 20 mg PO DAILY [facility] Last Admin: 07/11/17 09:44 Dose: 20 mg Polyethylene Glycol (Miralax (For Daily Use) -) 17 gm PO DAILY [facility] Last Admin: 07/11/17 09:47 Dose: 17 grams Prednisone (Deltasone -) 5 mg PO DAILY [facility] Last Admin: 07/11/17 09:45 Dose: 5 mg Ranitidine HCl (Zantac -) 150 mg PO DAILY [facility] Last Admin: 07/11/17 09:45 Dose: 150 mg Sitagliptin Phosphate (Januvia -) 100 mg PO DAILY [facility] Last Admin: 07/11/17 09:45 Dose: 100 mg Sodium Bicarbonate (Sodium Bicarbonate -) 650 mg PO DAILY [facility] Last Admin: 07/11/17 09:45 Dose: 650 mg Tacrolimus (Prograf) 4 mg PO BID [facility] Last Admin: 07/11/17 09:47 Dose: 4 mg Tamsulosin HCl (Flomax -) 0.4 mg PO DAILY@0830 [facility] Last Admin: 07/11/17 09:45 Dose: 0.4 mg 67 year old gentleman with PMhx of ESRD s/p Renal Transplant (3 years ago, on Prograf, Imuran, Prednisone), Hypertension, DM, Hypertension, CAD who presented with right heel swelling and pain and found to have draining wound and Cr of 1.2. #LE wound #Renal Transplant (baseline Cr 1.38 from 07/05/17) #Hypertension #Anemia Renal function stable and at baseline continue tacrolimus, prograf and prednisone continue abx as needed for LE wound vascular follow up noted discharge planning as per primary Thank you Price Carlton DO
[2017-07-11] MEDS: INSULIN (LEVEMIR) 100 UNITS/ML UNITS SQ SCH (21:31)
[2017-07-11] MEDS: ATORVASTATIN CA 10 MG TABLET (FP) PO SCH (21:31)
[2017-07-12] MEDS ORDERED: PIPERACILLIN/TAZOBACTAM 3.375 GM VIAL IVPB ONE ×2 (00:47→08:50)
[2017-07-12] MEDS ORDERED: DEXTROSE 5%-WATER - 50 ML IVPB ONE ×2 (00:48→08:51)
[2017-07-12] MEDS: PIPERACILLIN/TAZOB 3.375 GM 3.375 GM in DEXTROSE 5%-WATER - 50 ML IVPB SCH ×2 (01:27→09:28)
[2017-07-12] MEDS: INSULIN SLIDING SCALE (NOVOLOG) 1 VIAL SQ SCH ×2 (06:39→11:54)
[2017-07-12] MEDS: TAMSULOSIN HCL 0.4 MG CAP.ER.24H (FP) PO SCH (08:25)
--- NOTE | 2017-07-12 08:45 | PN ---
Teaching Attending Note Name of Resident: Nguyen Alberto ATTENDING PHYSICIAN STATEMENT I saw and evaluated the patient. I reviewed the resident's note and discussed the case with the resident. I agree with the resident's findings and plan as documented with exceptions below. SUBJECTIVE: Patient seen and examined. feels better, no new complaints. OBJECTIVE: Vital Signs Period Temp Pulse Resp BP Sys/Oliveira Pulse Ox Last 24 Hr 98.5 F-98.8 F 56-83 20-20 140-191/58-67 96 Intake & Output 07/09/17 07/10/17 07/11/17 07/12/17 23:59 23:59 23:59 23:59 Intake Total 2875 3500 1862 50 Output Total 1500 3950 2000 Balance 1375 -450 -138 50 General: lying in bed in no acute distress Extremities: Right foot ulcer with surround hyperkeratosis, non warm, non tender , no fluctuance seen, no erythema or discharge noted, Home Medications Medication Instructions Recorded Amlodipine Besylate [Norvasc -] 10 mg PO DAILY 04/24/15 Clopidogrel Bisulfate [Plavix -] 75 mg PO DAILY 04/24/15 Ranitidine [Zantac -] 150 mg PO DAILY 04/24/15 Simvastatin [Zocor -] 20 mg PO HS 04/24/15 Tacrolimus [Astagraf Xl] 8 mg PO DAILY 04/24/15 Tamsulosin HCl [Flomax] 0.4 mg PO BID 04/24/15 metFORMIN XR [Glucophage *Xr* -] 750 mg PO HS 04/24/15 Aspirin [ASA -] 325 mg PO DAILY 07/08/17 Azathioprine [Imuran] 150 mg PO DAILY 07/08/17 Ergocalciferol (Vitamin D2) 50,000 unit PO MONTHLY 07/08/17 [Vitamin D2] Insulin (Levemir) [Levemir Vial] 30 unit SQ HS 07/08/17 Isosorbide Mononitrate [Isosorbide 60 mg PO DAILY 07/08/17 Mononitrate ER] Nebivolol HCl [Bystolic] 20 mg PO DAILY 07/08/17 Polyethylene Glycol 3350 [Miralax 17 gm PO DAILY 07/08/17 (For Daily Use) -] Prednisone 5 mg PO DAILY 07/08/17 Sitagliptin Phosphate [Januvia] 100 mg PO DAILY 07/08/17 Sodium Bicarbonate - 2 tab PO DAILY 07/08/17 Active Medications Aspirin (Asa -) 325 mg PO DAILY [facility] Last Admin: 07/11/17 09:46 Dose: 325 mg Atorvastatin Calcium (Lipitor -) 10 mg PO HS [facility] Last Admin: 07/11/17 21:31 Dose: 10 mg Azathioprine (Imuran -) 150 mg PO DAILY [facility] Last Admin: 07/11/17 09:47 Dose: 150 mg Clopidogrel Bisulfate (Plavix -) 75 mg PO DAILY [facility] Last Admin: 07/11/17 09:44 Dose: 75 mg Collagenase (Santyl -) 1 applic TP DAILY [facility] Last Admin: 07/11/17 12:15 Dose: 1 applic Piperacillin Sod/Tazobactam (Sod 3.375 gm/ Dextrose) 50 mls @ 100 mls/hr IVPB Q8H-IV [facility]; Protocol Last Admin: 07/12/17 01:27 Dose: 100 mls/hr Insulin Aspart (Novolog Vial Sliding Scale -) 1 vial SQ TIDAC [facility]; Protocol Last Admin: 07/12/17 06:39 Dose: 4 units Insulin Detemir (Levemir Vial) 30 units SQ [facility] Last Admin: 07/11/17 21:31 Dose: 30 units Isosorbide Mononitrate (Imdur -) 60 mg PO DAILY [facility] Last Admin: 07/11/17 09:45 Dose: 60 mg Nebivolol (Bystolic -) 20 mg PO DAILY [facility] Last Admin: 07/11/17 09:44 Dose: 20 mg Polyethylene Glycol (Miralax (For Daily Use) -) 17 gm PO DAILY [facility] Last Admin: 07/11/17 09:47 Dose: 17 grams Prednisone (Deltasone -) 5 mg PO DAILY [facility] Last Admin: 07/11/17 09:45 Dose: 5 mg Ranitidine HCl (Zantac -) 150 mg PO DAILY [facility] Last Admin: 07/11/17 09:45 Dose: 150 mg Sitagliptin Phosphate (Januvia -) 100 mg PO DAILY [facility] Last Admin: 07/11/17 09:45 Dose: 100 mg Sodium Bicarbonate (Sodium Bicarbonate -) 650 mg PO DAILY [facility] Last Admin: 07/11/17 09:45 Dose: 650 mg Tacrolimus (Prograf) 4 mg PO BID [facility] Last Admin: 07/11/17 21:32 Dose: 4 mg Tamsulosin HCl (Flomax -) 0.4 mg PO DAILY@0830 [facility] Last Admin: 07/11/17 09:45 Dose: 0.4 mg Laboratory Results - last 24 hr 07/11/17 07/11/17 07/11/17 11:48 17:24 21:30 POC Glucometer 139 229 315 07/12/17 05:39 POC Glucometer 173 Microbiology 07/09/17 10:40 Foot - Right Sole Gram Stain - Final 07/09/17 10:40 Foot - Right Sole Wound Culture - Preliminary Strep Agalactiae Group B Anaerobic Cocci 07/08/17 11:40 Blood - Peripheral Venous Blood Culture - Preliminary NO GROWTH OBTAINED AFTER 72 HOURS, INCUBATION TO CONTINUE FOR 2 DAYS. 07/08/17 11:40 Blood - Peripheral Venous Blood Culture - Preliminary NO GROWTH OBTAINED AFTER 72 HOURS, INCUBATION TO CONTINUE FOR 2 DAYS. MRI RLE results noted ASSESSMENT AND PLAN: 67yo M with PMH HTN, CAD with possible stent placement, DM, s/p renal transplant due to diabetic nephropathy presented to the ER with R foot pain for 2-3days -Diabetic foot ulcer s/p bedside debridement 07/09 -GERALDINE likely infection/dehydration -Renal transplant on immunosuppressants -CAD -IDDM Plan: ID input appreciated, 7 days of augmentin WOund care instructions noted, discussed with patient about minimal weight bearing. PT eval done. MRI neg for Osteomyelitis. Cr at baseline, renal input appreciated, continue home immunosuppressants. Reported recent cath 3 weeks ago, continue plavix. Dispo d/c home with VNS/wound care and outpatient follow up Plan discussed with patient in detail, all questions answered with help of site interpreter
[2017-07-12 09:22] VITALS: BP 137/54; PULSE 58; TEMP 97.9
[2017-07-12] MEDS: ASPIRIN 325 MG TABLET PO SCH (09:24)
[2017-07-12] MEDS: CLOPIDOGREL BISULFATE 75 MG TABLET (FP) PO SCH (09:24)
[2017-07-12] MEDS: ISOSORBIDE MONONITRATE 60 MG TAB.SR.24H (FP) PO SCH (09:25)
[2017-07-12] MEDS: SODIUM BICARBONATE 650 MG TABLET PO SCH (09:25)
[2017-07-12] MEDS: RANITIDINE HCL 150 MG TABLET (FP) PO SCH (09:25)
[2017-07-12] MEDS: predniSONE 5 MG TABLET (UD) PO SCH (09:25)
[2017-07-12] MEDS: sitaGLIPtin PHOSPHATE 100 MG TABLET (FP) PO SCH (09:25)
[2017-07-12] MEDS: NEBIVOLOL 10 MG TABLET (FP) PO SCH (09:26)
[2017-07-12] MEDS: POLYETHYLENE GLYCOL 3350 119 GM BTL PO SCH (09:27)
[2017-07-12] MEDS: azaTHIOprine 50 MG TABLET PO SCH (09:27)
[2017-07-12] MEDS: TACROLIMUS ANHYDROUS 1 MG CAPSULE PO SCH (09:28)
[2017-07-12] MEDS: COLLAGENASE CLOSTRIDIUM HIST. 30 GRAMS TUBE TP SCH (09:32)
--- NOTE | 2017-07-12 12:02 | PN ---
Teaching Attending Note Name of Resident: Dillan Mcmullen ATTENDING PHYSICIAN STATEMENT I saw and evaluated the patient. I reviewed the resident's note and discussed the case with the resident. I agree with the resident's findings and plan as documented. SUBJECTIVE: no complaints OBJECTIVE: Vital Signs Period Temp Pulse Resp BP Sys/Oliveira Pulse Ox Last 24 Hr 97.9 F-98.8 F 58-83 20-20 137-191/54-67 96 foot wound examined- no erythema, no drainage Microbiology 07/09/17 10:40 Foot - Right Sole Gram Stain - Final 07/09/17 10:40 Foot - Right Sole Wound Culture - Preliminary Strep Agalactiae Group B Anaerobic Cocci 07/08/17 11:40 Blood - Peripheral Venous Blood Culture - Preliminary NO GROWTH OBTAINED AFTER 72 HOURS, INCUBATION TO CONTINUE FOR 2 DAYS. 07/08/17 11:40 Blood - Peripheral Venous Blood Culture - Preliminary NO GROWTH OBTAINED AFTER 72 HOURS, INCUBATION TO CONTINUE FOR 2 DAYS. ASSESSMENT AND PLAN: s/p drainage of small plantar abscess can switch to po augmentin for one week needs better outpt diabetes control history of renal transplant please call back if needed
--- NOTE | 2017-07-12 12:19 | PN ---
Progress Note (short form) - Note Progress Note: ID Patient seen and examined at bedside remains afebrile WBC count WNL patient states he feels much better Vital Signs Period Temp Pulse Resp BP Sys/Oliveira Pulse Ox Last 24 Hr 97.2 F-99.1 F 60-62 18-20 133-140/49-59 96 PE: NAD lying in bed RRR S1 S2 no murmurs soft non tender non distended extremities: no edema. right foot with 2CM plantar ulcer with serous drainage and fibrous exudate less than yesterday Microbiology 07/08/17 11:40 Blood - Peripheral Venous Blood Culture - Preliminary NO GROWTH OBTAINED AFTER 96 HOURS, INCUBATION TO CONTINUE FOR 1 DAYS. 07/08/17 11:40 Blood - Peripheral Venous Blood Culture - Preliminary NO GROWTH OBTAINED AFTER 96 HOURS, INCUBATION TO CONTINUE FOR 1 DAYS. 07/09/17 10:40 Foot - Right Sole Gram Stain - Final 07/09/17 10:40 Foot - Right Sole Wound Culture - Preliminary Strep Agalactiae Group B Anaerobic Cocci A/P: 67M with infected plantar ulcer presented with sepsis. Problem List: DM-uncontrolled CAD diabetic foot ulcer-sepsis resolved s/p renal transplant 3 years ago GERALDINE Plan: wound cultures above can discharge from ID standpoint with 1 week of augmentin, dressing changes with collagenase, and follow up in wound care clinic needs better control of blood sugars Case discussed with Dr. Vargas
--- NOTE | 2017-07-12 13:55 | DS ---
Physical Exam: SUBJECTIVE: Patient seen and examined. No new c/o. No fever or increased pain at site overnight. Wants to go home. OBJECTIVE: Vital Signs Period Temp Pulse Resp BP Sys/Oliveira Pulse Ox Last 24 Hr 97.9 F-98.8 F 58-83 20-20 137-191/54-67 96-96 Vital Signs Temp 97.9 F 07/12/17 09:21 Pulse 58 L 07/12/17 09:21 Resp 20 07/12/17 09:21 BP 137/54 07/12/17 09:21 Pulse Ox 96 07/12/17 09:00 Intake & Output 07/11/17 07/12/17 07/12/17 23:59 11:59 23:59 Intake Total 675 100 450 Output Total 600 Balance 675 100 -150 Intake: IVPB 100 Oral 675 450 Output: Urine 600 Void 600 Other: Voiding Method Toilet Toilet Urinal # Unmeasured Voids Void 800 Bowel Movement No No PHYSICAL EXAM GENERAL: The patient is awake, alert, and fully oriented, in no acute distress. LUNGS: Breath sounds equal, clear to auscultation bilaterally HEART: Regular rate and rhythm, S1, S2. LUE av fistula bruit active and radiating ABDOMEN: obese, Soft, nontender, normoactive bowel sounds. EXTREMITIES: reduced pulses bilaterally R-1, L1+, warm, R LE with mid plantar ulcer about 2cm, clean, no bleeding. NEUROLOGICAL: Cranial nerves II through XII grossly intact. Normal speech, gait not observed. Laboratory Last Values WBC 4.2 K/mm3 (4.0-10.0) 07/11/17 06:35 RBC 4.02 M/mm3 (4.00-5.60) 07/11/17 06:35 Hgb 11.6 GM/dL (11.7-16.9) L 07/11/17 06:35 Hct 34.7 % (35.4-49) L 07/11/17 06:35 MCV 86.3 fl (80-96) 07/11/17 06:35 MCH 28.7 pg (25.7-33.7) 07/11/17 06:35 MCHC 33.3 g/dl (32.0-35.9) 07/11/17 06:35 RDW 15.4 % (11.9-15.9) 07/11/17 06:35 Plt Count 214 K/MM3 (134-434) 07/11/17 06:35 MPV 7.1 fl (7.5-11.1) L 07/11/17 06:35 Neutrophils % 59.7 % (42.8-82.8) 07/11/17 06:35 Lymphocytes % 22.0 % (8-40) D 07/11/17 06:35 Monocytes % 15.3 % (3.8-10.2) H 07/11/17 06:35 Eosinophils % 2.5 % (0-4.5) D 07/11/17 06:35 Basophils % 0.5 % (0-2.0) 07/11/17 06:35 Nucleated RBC % 0 % (0-0) 07/11/17 06:35 ESR 18 mm/hr (0-20) 07/08/17 11:40 PT with INR 12.00 SEC (9.7-13.0) 07/08/17 11:40 INR 1.06 (0.82-1.09) 07/08/17 11:40 Sodium 139 mmol/L (136-145) 07/11/17 06:35 Potassium 4.5 mmol/L (3.5-5.1) 07/11/17 06:35 Chloride 108 mmol/L (98-107) H 07/11/17 06:35 Carbon Dioxide 27 mmol/L (21-32) 07/11/17 06:35 Anion Gap 4 (8-16) L 07/11/17 06:35 BUN 24 mg/dL (7-18) H 07/11/17 06:35 Creatinine 1.3 mg/dL (0.7-1.3) 07/11/17 06:35 Creat Clearance w eGFR > 60 (>60) 07/09/17 07:30 POC Glucometer 110 UNITS (80-120) 07/12/17 11:30 Random Glucose 201 mg/dL (74-106) H D 07/11/17 06:35 Hemoglobin A1c % 9.7 % (4.8-6.0) H 07/08/17 13:30 Calcium 9.3 mg/dL (8.5-10.1) 07/11/17 06:35 Phosphorus 2.8 mg/dL (2.5-4.9) 07/11/17 06:35 Magnesium 1.6 mg/dL (1.8-2.4) L 07/11/17 06:35 Total Bilirubin 0.7 mg/dL (0.2-1.0) D 07/09/17 07:30 AST 8 U/L (15-37) L D 07/09/17 07:30 ALT 12 U/L (12-78) 07/09/17 07:30 Alkaline Phosphatase 59 U/L (45-117) 07/09/17 07:30 C-Reactive Protein 4.9 MG/DL (0.00-0.3) H 07/08/17 13:28 Total Protein 5.8 g/dl (6.4-8.2) L 07/09/17 07:30 Albumin 2.9 g/dl (3.4-5.0) L 07/09/17 07:30 Urine Color Yellow 07/09/17 17:00 Urine Appearance Clear 07/09/17 17:00 Urine pH 6.0 (5.0-8.0) 07/09/17 17:00 Ur Specific Collins 1.011 (1.001-1.035) 07/09/17 17:00 Urine Protein Negative (NEGATIVE) 07/09/17 17:00 Urine Glucose (UA) 3+ (NEGATIVE) H 07/09/17 17:00 Urine Ketones Negative (NEGATIVE) 07/09/17 17:00 Urine Blood Negative (NEGATIVE) 07/09/17 17:00 Urine Nitrite Negative (NEGATIVE) 07/09/17 17:00 Urine Bilirubin Negative (<2.0 mg/dL) 07/09/17 17:00 Urine Urobilinogen 2.0 mg/dL (0.2-1.0) 07/09/17 17:00 Ur Leukocyte Esterase Negative (NEGATIVE) 07/09/17 17:00 U Random Total Protein 18 mg/dl (5-11.9) H 07/09/17 17:00 Ur Random Sodium 134 MMOL/L 07/08/17 17:30 Ur Random Potassium 26.7 MMOL/L 07/08/17 17:30 Ur Random Chloride 135 MMOL/L 07/08/17 17:30 Urine Creatinine 69.8 mg/dL (20-370) 07/09/17 17:00 Random Vancomycin 24.074 ug/ml 07/11/17 06:00 LABS Laboratory Results - last 24 hr 07/11/17 07/11/17 07/12/17 17:24 21:30 05:39 POC Glucometer 229 315 173 07/12/17 11:30 POC Glucometer 110 MRI of R foot w/o contrast -no soft tissue abscess, no osteomyelitis Xray of foot negative for osteomyelitis Microbiology 07/09/17 10:40 Foot - Right Sole Gram Stain - Final 07/09/17 10:40 Foot - Right Sole Wound Culture - Preliminary Strep Agalactiae Group B Anaerobic Cocci 07/08/17 11:40 Blood - Peripheral Venous Blood Culture - Preliminary NO GROWTH OBTAINED AFTER 72 HOURS, INCUBATION TO CONTINUE FOR 2 DAYS. 07/08/17 11:40 Blood - Peripheral Venous Blood Culture - Preliminary NO GROWTH OBTAINED AFTER 72 HOURS, INCUBATION TO CONTINUE Ambulatory Orders Amlodipine Besylate [Norvasc -] 10 mg PO DAILY 04/24/15 Clopidogrel Bisulfate [Plavix -] 75 mg PO DAILY 04/24/15 Ranitidine [Zantac -] 150 mg PO DAILY 04/24/15 Simvastatin [Zocor -] 20 mg PO HS 04/24/15 Tacrolimus [Astagraf Xl] 8 mg PO DAILY 04/24/15 Tamsulosin HCl [Flomax -] 0.4 mg PO BID 04/24/15 metFORMIN XR [Glucophage Xr -] 750 mg PO HS 04/24/15 Aspirin [ASA -] 325 mg PO DAILY 07/08/17 Azathioprine [Imuran] 150 mg PO DAILY 07/08/17 Ergocalciferol (Vitamin D2) [Vitamin D2] 50,000 unit PO MONTHLY 07/08/17 Insulin (Levemir) [Levemir Vial] 30 unit SQ HS 07/08/17 Isosorbide Mononitrate [Isosorbide Mononitrate ER] 60 mg PO DAILY 07/08/17 Nebivolol HCl [Bystolic] 20 mg PO DAILY 07/08/17 Polyethylene Glycol 3350 [Miralax 119 gm Btl -] 17 gm PO DAILY 07/08/17 Prednisone 5 mg PO DAILY 07/08/17 Sitagliptin Phosphate [Januvia] 100 mg PO DAILY 07/08/17 Sodium Bicarbonate - 2 tab PO DAILY 07/08/17 Amoxicillin/Potassium Clav [Augmentin 875-125 Tablet] 1 each PO BID #14 tablet 07/12/17 Collagenase Clostridium Hist. [Santyl -] 1 applic TP DAILY #10 tube 07/12/17 HOSPITAL COURSE: Date of Admission:07/08/17 Date of Discharge: 07/12/17 Pt is a 67 yo s/p renal transplant, PMHx of DM, HTN, recent CAD on clopidogrel now presenting with R heel swelling and pain for 3 days. Found to have R mid plantar abscess that was debrided. He now has a R midplantar ulcer secondary to diabetic neuropathy/vasculopathy without osteomyelitis. He received zosyn and vancomycin. Found to have strep Agalactiae, esaprza sensitive, so vancomycin was discontinued. He will dress the wound daily with santyl. Pt is being discharged home on 7 days of Augmentin 875mg bid. He will follow up at the wound clinic for [facility]. His talent agent was Dr Momin and the vascular surgeon was Dr Roque. He was also set up with [facility] services. For diabetes, he was continued on his home medications and ran in the 200s. He is being discharged home to create a sugar log for likely adjustment of his medication. His HgbA1c was 9.7 He had a slight GERALDINE that resolved to his baseline of around 1.3, that resolved with hydration with NS. Dr Carlton (in house laundry operator) was in touch with his laundry operator and confirmed he had no hx of transplant rejection and so was continued on his immunosuppressive therapy. He continued home amlodipine, bystolic for HTN and prednisone, azathioprine, astagraft for his renal transplant. He did not look in decompensated CHF, but continued ASA, plavix, isosorbide, simvastatin He was also continued on flomax, miralax, and ranitidine He will follow up for wound care, with his transplant doctor, and with Dr Nguyen Alberto at [address] if he has no PCP. Minutes to complete discharge: 40 Discharge Summary Reason For Visit: DIABETIC FOOT ULCER Current Active Problems BPH (benign prostatic hyperplasia) (Acute) CAD (coronary artery disease) (Acute) Diabetes mellitus type 2 with atherosclerosis of arteries of extremities (Acute) Diabetic foot ulcer (Acute) Hyperlipidemia (Acute) Hypertension (Acute) Condition: Stable - Instructions Diet, Activity, Other Instructions: You came in with an ulcer of your heel as a result of diabetes We tested and confirmed that you had no infections in the bone The wound was cleaned and dressed You will continue dressing at home with the help of a visiting nurse The instructions are as below: Wound care with Yesiyl and follow-up in wound care clinic. We are discharging you on 875mg of Augmentin twice daily for 7days Please take them everyday as prescribed Your sugar is elevated Please continue all your home diabetes medications and insulin as before. Advise blood sugar checks before eating and at bedtime and notify your doctor if < 75 or persistently > 200 or any reading > 350 noted. You will need to keep a log of needle pricks and insulin you are getting bring the log to your primary doctor for insulin adjustment- You may follow up with Dr Nguyen Alberto at [address] on afternoon You may come on 07/14/17 in the afternoon, an appointment has been made for you for 1pm You had renal transplant in the past, Continue your immunosuppressive medications and follow up with the transplant clinic Follow up with your primary health care provider in a week Continue all your medications as prescribed Follow up at wound care center here on the 6th floor in 1 week. Please call on discharge to schedule follow up. Minimize weight bearing on your affected foot and follow instructions as given by physical therapy. Do not drive, operate heavy machinery till seen by your doctor. CONTINUE ALL YOUR HOME MEDICATIONS BEFORE WITH ADDITION OF FOLLOWING ANTIBIOTIC; AUGMENTIN 875 MG ORALLY TWICE DAILY FOR 7 DAYS Referrals: Nguyen Alberto I, SUMEET [Resident] - 1 Week Jorge Blair MD [Staff Physician] - 1 Week Darius Momin MD [Staff Physician] - 1 Week Tomi Roque MD [Staff Physician] - 1 Week Disposition: VNS/HOME HEALTH CARE - Home Medications Comprehensive Discharge Medication List: Ambulatory Orders Amlodipine Besylate [Norvasc -] 10 mg PO DAILY 04/24/15 Clopidogrel Bisulfate [Plavix -] 75 mg PO DAILY 04/24/15 Ranitidine [Zantac -] 150 mg PO DAILY 04/24/15 Simvastatin [Zocor -] 20 mg PO HS 04/24/15 Tacrolimus [Astagraf Xl] 8 mg PO DAILY 04/24/15 Tamsulosin HCl [Flomax -] 0.4 mg PO BID 04/24/15 metFORMIN XR [Glucophage Xr -] 750 mg PO HS 04/24/15 Aspirin [ASA -] 325 mg PO DAILY 07/08/17 Azathioprine [Imuran] 150 mg PO DAILY 07/08/17 Ergocalciferol (Vitamin D2) [Vitamin D2] 50,000 unit PO MONTHLY 07/08/17 Insulin (Levemir) [Levemir Vial] 30 unit SQ HS 07/08/17 Isosorbide Mononitrate [Isosorbide Mononitrate ER] 60 mg PO DAILY 07/08/17 Nebivolol HCl [Bystolic] 20 mg PO DAILY 07/08/17 Polyethylene Glycol 3350 [Miralax 119 gm Btl -] 17 gm PO DAILY 07/08/17 Prednisone 5 mg PO DAILY 07/08/17 Sitagliptin Phosphate [Januvia] 100 mg PO DAILY 07/08/17 Sodium Bicarbonate - 2 tab PO DAILY 07/08/17 Amoxicillin/Potassium Clav [Augmentin 875-125 Tablet] 1 each PO BID #14 tablet 07/12/17 Collagenase Clostridium Hist. [Santyl -] 1 applic TP DAILY #10 tube 07/12/17 This patient is new to me today: No Emergency Visit: Yes ED Registration Date: 07/08/17 Care time: The patient presented to the Emergency Department on the above date and was hospitalized for further evaluation of their emergent condition. Critical Care patient: No - Discharge Referral Referred to [facility] Med [facility] No
--- NOTE | 2017-07-12 14:12 | PN ---
Progress Note (short form) - Note Progress Note: Podiatry: Seen/evaluated at bedside NAD. Pain controlled, denies F/V/N/C/SOB/CP. AFebrile , VSS. ANGIE: R foot: pedal pulses weakly palpable, TG wnl, CFT brisk to all toes.. R plantar midfoot charcot ulcer mixed fibrogranular base, hyperkeratotic borders, no probing to bone, no purulent drainage, no fluctuance, no ascending cellulitis , no signs of infection. Mild tenderness to palpation. No ischemic changes. Wound Cx: strep B MRI: negative for osteomyelitis Imp: 67 year old IDDM M with R charcot midfoot diabetic ulcer 1. Abx per ID 2. Continue local wound care with santyl + DSD daily to R foot 3. Patient instructed to minimize his weightbearing activity 4. Appropriate glycemic control discussed 5. Upon discharge can f/u with wound healing center [phone] Hue Momin DPM
== END 2017-07-12 14:38 | disposition home health service (06) | DRG 623 ==
LOC: JER 10:29 → JERBED 14:52 → J6S 17:20
PROVIDERS: ADMIT Internal Medicine; ATTEND Hospitalist
PROC: 0JBQ0ZZ Excision of Right Foot Subcutaneous Tissue and Fascia, Open Approach (ICD-10-PCS; principal; 2017-07-09)
DX: E11.621 Type 2 diabetes mellitus with foot ulcer (principal); L97.419 Non-pressure chronic ulcer of right heel and midfoot with unspecified severity; Z94.0 Kidney transplant status; N17.9 Acute kidney failure, unspecified; E11.65 Type 2 diabetes mellitus with hyperglycemia; I25.10 Atherosclerotic heart disease of native coronary artery without angina pectoris; E78.5 Hyperlipidemia, unspecified; N40.0 Benign prostatic hyperplasia without lower urinary tract symptoms; K59.00 Constipation, unspecified; D64.9 Anemia, unspecified; E11.51 Type 2 diabetes mellitus with diabetic peripheral angiopathy without gangrene; I10 Essential (primary) hypertension; E11.610 Type 2 diabetes mellitus with diabetic neuropathic arthropathy; K21.9 Gastro-esophageal reflux disease without esophagitis
CPT/HCPCS: 36415; 71045-TC-FY; 73630-TC-RT-FY; 73721-RT-TC; 76775-TC; 80048; 80053; 81003; 82436; 82570; 82962; 83036; 83735; 84100; 84133; 84156; 84300; 85025; 85027; 85610; 85651; 86140; 87040; 87070; 87076; 87186; 87205; 93005; 93010; 93923; 93926-TC; 97116-GP; 97161-GP; 99284-25; G0480; J7030

== ENCOUNTER 2017-09-22 09:34 | Day surgery (SDC) | payer OTHER ==
[~2017-09-22 09:34] MED LIST: VANCOMYCIN 1,000 MG in DEXTROSE 5%-WATER - 250 ML IVPB ONE
[2017-09-22] MEDS ORDERED: VANCOMYCIN 1 GRAM (PRE-DOCKED) 1,000 MG/250 ML BAG IVPB ONE (09:55)
[2017-09-22 10:12] VITALS: TEMP 97.6
[2017-09-22 14:37] VITALS: BP 188/81; PULSE 70
== END 2017-09-22 11:45 | disposition home or self-care (01) ==
LOC: JINFUSION 09:34
PROVIDERS: ATTEND Internal Medicine
DX: M86.8X7 Other osteomyelitis, ankle and foot (principal)
CPT/HCPCS: 96365; 96366

== ENCOUNTER 2017-09-23 11:40 | Day surgery (SDC) | payer OTHER ==
[2017-09-23 12:37] LABS: ANION GAP 4 (8-16); BLOOD UREA NITROGEN 27 mg/dL (7-18); CALCIUM 10.3 mg/dL (8.5-10.1); CHLORIDE 102 mmol/L (98-107); CO2 30 mmol/L (21-32); CREATININE 1.6 mg/dL (0.7-1.3); GLUCOSE,RANDOM 278 mg/dL (74-106); POTASSIUM 5.3 mmol/L (3.5-5.1); SODIUM 136 mmol/L (136-145)
[2017-09-23 14:20] VITALS: TEMP 98.3
[2017-09-23 14:27] VITALS: BP 154/56; PULSE 78
== END 2017-09-23 14:05 | disposition home or self-care (01) ==
LOC: JINFUSION 11:40
PROVIDERS: ATTEND Internal Medicine
DX: M86.8X7 Other osteomyelitis, ankle and foot (principal)
CPT/HCPCS: 36415; 80048; 96365; 96366; G0480

== ENCOUNTER 2017-09-28 11:06 | Day surgery (SDC) | payer OTHER ==
[2017-09-28 11:17] VITALS: BP 130/60; PULSE 57; TEMP 98
[2017-09-28] MEDS ORDERED: VANCOMYCIN 1 GM PREMIX - 1 GM/200 ML BAG IVPB ONE (11:30)
== END 2017-09-28 13:07 | disposition home or self-care (01) ==
LOC: JINFUSION 11:06
PROVIDERS: ATTEND Internal Medicine
DX: M86.8X7 Other osteomyelitis, ankle and foot (principal); L97.822 Non-pressure chronic ulcer of other part of left lower leg with fat layer exposed; Z79.4 Long term (current) use of insulin
CPT/HCPCS: 82962; 96365; 96366; G0277

== ENCOUNTER 2017-09-29 09:55 | Day surgery (SDC) | payer OTHER ==
[~2017-09-29 09:55] MED LIST changes: -VANCOMYCIN 1,000 MG in DEXTROSE 5%-WATER - 250 ML IVPB ONE; +VANCOMYCIN 1,000 MG in SODIUM CHLORIDE 250 ML IVPB ONE
[2017-09-29 10:39] VITALS: BP 152/67; PULSE 64; TEMP 97.9
== END 2017-09-29 12:21 | disposition home or self-care (01) ==
LOC: JINFUSION 09:55
PROVIDERS: ATTEND Internal Medicine
DX: M86.8X7 Other osteomyelitis, ankle and foot (principal)
CPT/HCPCS: 82962; 96365; 96366; G0277

== ENCOUNTER 2017-09-30 09:28 | Day surgery (SDC) | payer OTHER ==
[2017-09-30 10:33] LABS: ANION GAP 6 MMOL/L (8-16); BLOOD UREA NITROGEN 23 mg/dL (7-18); CALCIUM 10.3 mg/dL (8.5-10.1); CHLORIDE 106 mmol/L (98-107); CO2 29 mmol/L (21-32); CREATININE 1.5 mg/dL (0.7-1.3); GLUCOSE,RANDOM 296 mg/dL (74-106); POTASSIUM 5.1 mmol/L (3.5-5.1); SODIUM 141 mmol/L (136-145)
[2017-09-30 11:06] VITALS: BP 157/64; PULSE 57; TEMP 97.6
[2017-09-30] MEDS ORDERED: VANCOMYCIN 1,000 MG in SODIUM CHLORIDE 250 ML IVPB ONE (11:20)
== END 2017-09-30 12:50 | disposition home or self-care (01) ==
LOC: JINFUSION 09:28
PROVIDERS: ATTEND Internal Medicine
DX: M86.8X7 Other osteomyelitis, ankle and foot (principal)
CPT/HCPCS: 36415; 80048; 82962; 96365; 96366; G0277; G0480

== ENCOUNTER 2017-10-01 09:36 | Day surgery (SDC) | payer OTHER ==
[2017-10-01] MEDS ORDERED: VANCOMYCIN 1,000 MG in SODIUM CHLORIDE 250 ML IVPB ONE (11:00)
[2017-10-01 17:06] VITALS: TEMP 98
[2017-10-01 17:09] VITALS: BP 145/85; PULSE 80
== END 2017-10-01 17:15 | disposition home or self-care (01) ==
LOC: JINFUSION 09:36 → J7W 09:37 → JINFUSION 17:15
PROVIDERS: ATTEND Internal Medicine
DX: M86.8X7 Other osteomyelitis, ankle and foot (principal)
CPT/HCPCS: 96365

== ENCOUNTER 2017-10-02 10:03 | Day surgery (SDC) | payer OTHER ==
[2017-10-02] MEDS ORDERED: VANCOMYCIN 1,000 MG in SODIUM CHLORIDE 250 ML IVPB ONE (11:15)
[2017-10-02 15:03] VITALS: BP 158/55; PULSE 58; TEMP 98
== END 2017-10-02 15:04 | disposition home or self-care (01) ==
LOC: JINFUSION 10:03 → J7W 10:05 → JINFUSION 15:04
PROVIDERS: ATTEND Internal Medicine
DX: M86.8X7 Other osteomyelitis, ankle and foot (principal)
CPT/HCPCS: 96365

== ENCOUNTER 2017-10-03 09:14 | Day surgery (SDC) | payer OTHER ==
[2017-10-03 13:06] VITALS: PULSE 58; TEMP 98.9
[2017-10-03 14:34] VITALS: BP 153/56
== END 2017-10-03 14:35 | disposition home or self-care (01) ==
LOC: JINFUSION 09:14
PROVIDERS: ATTEND Internal Medicine
DX: M86.8X7 Other osteomyelitis, ankle and foot (principal)
CPT/HCPCS: 82962; 96365; 96366; G0277

== ENCOUNTER 2017-10-04 10:17 | Day surgery (SDC) | payer OTHER ==
[2017-10-04 11:27] VITALS: TEMP 97
[2017-10-04 12:54] VITALS: BP 139/52; PULSE 54
== END 2017-10-04 12:47 | disposition home or self-care (01) ==
LOC: JINFUSION 10:17
PROVIDERS: ATTEND Internal Medicine
DX: M86.8X7 Other osteomyelitis, ankle and foot (principal); E11.51 Type 2 diabetes mellitus with diabetic peripheral angiopathy without gangrene; L97.922 Non-pressure chronic ulcer of unspecified part of left lower leg with fat layer exposed
CPT/HCPCS: 82962; 96365; 96366; G0277

== ENCOUNTER 2017-10-05 09:15 | Day surgery (SDC) | payer OTHER ==
[2017-10-05 10:20] VITALS: TEMP 97.9
[2017-10-05 11:19] VITALS: BP 110/56; PULSE 72
== END 2017-10-05 11:20 | disposition home or self-care (01) ==
LOC: JINFUSION 09:15
PROVIDERS: ATTEND Internal Medicine
DX: M86.8X7 Other osteomyelitis, ankle and foot (principal); E11.51 Type 2 diabetes mellitus with diabetic peripheral angiopathy without gangrene; L97.922 Non-pressure chronic ulcer of unspecified part of left lower leg with fat layer exposed; Z79.4 Long term (current) use of insulin
CPT/HCPCS: 82962; 96365; 96366; G0277

== ENCOUNTER 2017-10-06 09:26 | Day surgery (SDC) | payer OTHER ==
[2017-10-06] MEDS ORDERED: VANCOMYCIN 1,000 MG in SODIUM CHLORIDE 250 ML IVPB ONE (09:45)
[2017-10-06 10:45] VITALS: TEMP 98.1
[2017-10-06 12:24] VITALS: BP 143/52; PULSE 56
== END 2017-10-06 12:20 | disposition home or self-care (01) ==
LOC: JINFUSION 09:26
PROVIDERS: ATTEND Internal Medicine
DX: M86.8X7 Other osteomyelitis, ankle and foot (principal)
CPT/HCPCS: 82962; 96365; 96366; G0277

== ENCOUNTER 2017-10-07 10:57 | Day surgery (SDC) | payer OTHER ==
[2017-10-07 11:34] VITALS: TEMP 98
[2017-10-07 12:49] LABS: ANION GAP 6 MMOL/L (8-16); BLOOD UREA NITROGEN 26 mg/dL (7-18); CALCIUM 9.5 mg/dL (8.5-10.1); CHLORIDE 105 mmol/L (98-107); CO2 29 mmol/L (21-32); CREATININE 1.5 mg/dL (0.7-1.3); GLUCOSE,RANDOM 183 mg/dL (74-106); POTASSIUM 4.6 mmol/L (3.5-5.1); SODIUM 140 mmol/L (136-145)
[2017-10-07 13:12] VITALS: BP 146/54; PULSE 59
== END 2017-10-07 13:05 | disposition home or self-care (01) ==
LOC: JINFUSION 10:57
PROVIDERS: ATTEND Internal Medicine
DX: M86.8X7 Other osteomyelitis, ankle and foot (principal)
CPT/HCPCS: 36415; 80048; 82962; 96365; 96366; G0480

== ENCOUNTER 2017-10-10 09:43 | Day surgery (SDC) | payer OTHER ==
[2017-10-10] MEDS ORDERED: VANCOMYCIN 1,000 MG in SODIUM CHLORIDE 250 ML IVPB ONE (10:30)
[2017-10-10 13:27] LABS: ANION GAP 7 MMOL/L (8-16); BLOOD UREA NITROGEN 28 mg/dL (7-18); CALCIUM 9.6 mg/dL (8.5-10.1); CHLORIDE 103 mmol/L (98-107); CO2 27 mmol/L (21-32); CREATININE 1.3 mg/dL (0.7-1.3); GLUCOSE,RANDOM 167 mg/dL (74-106); POTASSIUM 4.6 mmol/L (3.5-5.1); SODIUM 137 mmol/L (136-145)
[2017-10-10] MEDS ORDERED: VANCOMYCIN 750 MG in SODIUM CHLORIDE 250 ML IVPB ONE (13:30)
[2017-10-10 13:31] VITALS: BP 158/63; PULSE 58; TEMP 97.8
== END 2017-10-10 13:33 | disposition home or self-care (01) ==
LOC: JINFUSION 09:43 → J7W 09:43 → JINFUSION 13:33
PROVIDERS: ATTEND Internal Medicine
DX: M86.8X7 Other osteomyelitis, ankle and foot (principal)
CPT/HCPCS: 36415; 80048; 96365; G0480

== ENCOUNTER 2017-10-11 09:46 | Day surgery (SDC) | payer OTHER ==
[2017-10-11] MEDS ORDERED: VANCOMYCIN 750 MG in SODIUM CHLORIDE 250 ML IVPB ONE (11:00)
[2017-10-11 11:31] VITALS: PULSE 59; TEMP 97.8
[2017-10-11 13:32] VITALS: BP 121/60
== END 2017-10-11 12:50 | disposition home or self-care (01) ==
LOC: JINFUSION 09:46
PROVIDERS: ATTEND Internal Medicine
DX: M86.8X7 Other osteomyelitis, ankle and foot (principal)
CPT/HCPCS: 96365

== ENCOUNTER 2017-10-12 10:27 | Observation (INO) | payer OTHER ==
[2017-10-12 10:35] VITALS: BMI 26.7
--- NOTE | 2017-10-12 10:48 | PDOC ---
History of Present Illness - General History Source: Patient Exam Limitations: No Limitations - History of Present Illness Initial Comments: 10/12/17 12:14 The patient is a 67-year-old male with past medical history of cadaveric renal transplant in 2013, uncontrolled DM, HTN, CAD with hx of stents 06/2017, chronic right foot ulcer, L. AVF from dialysis in the past, and osteomyelitis presents to the emergency department with chest pain. The patient reports anterior chest pain localized below the L. breast, non-radiating for the past 3 days. The patient reports the pain is annoying in character, with the severity of 4/10, associated with weakness when ambulating short distance. The patient reports relief at rest. The patient reports taking all his medication last night denies any medication use before ED visit. Denies nausea, vomiting, diarrhea, shortness of breath, or a cough. Patient was admission to the hospital on 2017 for R. foot infection. During the stay, the patient was seen by ranch cook, an echo was done on 09/12/2017, Normal LV size and fxn, normal RV size and fxn, LVEF 60-65%, normal atrial sizes, mild TR. Patient was discharged on 09/16/2017. Allergies: NKA Surgical history: Abdominal Herniorrhaphy, cadaveric renal transplant 2013, cardiac stent 06/2017, R. Metatarsal amputation and L. leg surgery. Social history: None reported PCP: follows at [place] [facility] transplant dr: Dr. Parson [phone] <Vesta Walker - Last Filed: 10/12/17 12:17> - General History Source: Patient Exam Limitations: No Limitations <Lupis Spaulding - Last Filed: 10/12/17 13:01> - General Chief Complaint: Chest Pain Stated Complaint: CHEST PAIN Time Seen by Provider: 10/12/17 10:47 Past History <Vesta Walker - Last Filed: 10/12/17 12:17> - Past Medical History Cardiac Disorders: Yes (CAD, stent) COPD: No DVT: No Diabetes: Yes Dialysis: No (kidney transplatn,lt arm fistula) GI Disorders: Yes HTN: Yes Other medical history: osteomylities - Surgical History Abdominal Surgery: (hernia) - Suicide/Smoking/Psychosocial Hx Smoking History: Never smoked Have you smoked in the past 12 months: No Information on smoking cessation initiated: No Hx Alcohol Use: No Drug/Substance Use Hx: No Substance Use Type: None <Lupis Spaulding - Last Filed: 10/12/17 13:01> - Past Medical History Allergies/Adverse Reactions: Allergies Allergy/AdvReac Type Severity Reaction Status Date / Time No Known Allergies Allergy Verified 09/09/17 17:02 Home Medications: Ambulatory Orders Amlodipine Besylate [Norvasc -] 5 mg PO DAILY 04/24/15 Clopidogrel Bisulfate [Plavix -] 75 mg PO DAILY 04/24/15 Ranitidine [Zantac -] 150 mg PO DAILY 04/24/15 Simvastatin [Zocor -] 20 mg PO HS 04/24/15 Tacrolimus [Astagraf Xl] 8 mg PO DAILY 04/24/15 Tamsulosin HCl [Flomax -] 0.4 mg PO BID 04/24/15 metFORMIN XR [Glucophage Xr -] 750 mg PO HS 04/24/15 Aspirin [ASA -] 325 mg PO DAILY 07/08/17 Azathioprine [Imuran] 150 mg PO DAILY 07/08/17 Ergocalciferol (Vitamin D2) [Vitamin D2] 50,000 unit PO MONTHLY 07/08/17 Isosorbide Mononitrate [Isosorbide Mononitrate ER] 60 mg PO DAILY 07/08/17 Nebivolol HCl [Bystolic] 20 mg PO DAILY 07/08/17 Polyethylene Glycol 3350 [Miralax 119 gm Btl -] 17 gm PO DAILY 07/08/17 Prednisone 5 mg PO DAILY 07/08/17 Sitagliptin Phosphate [Januvia] 100 mg PO DAILY 07/08/17 Sodium Bicarbonate - 2 tab PO BID 07/08/17 Collagenase Clostridium Hist. [Santyl -] 1 applic TP DAILY #1 applic 08/07/17 Gauze Bandage 1 each TP DAILY #1 box 08/07/17 Insulin (Levemir) [Levemir Vial] 35 unit SQ HS #1 vial 08/07/17 Miscellaneous Drug Not In Syst [Outpatient Lab Test] 1 each ASDIR #1 misc 11/24 Review of Systems - Review of Systems Comments:: 10/12/17 12:16 GENERAL/CONSTITUTIONAL: No fever or chills. (+) weakness with ambulating short distance. HEAD, EYES, EARS, NOSE AND THROAT: No change in vision. No ear pain or discharge. No sore throat. GASTROINTESTINAL: No nausea, vomiting, diarrhea or constipation. GENITOURINARY: No dysuria, frequency, or change in urination. CARDIOVASCULAR: (+) Chest pain. No shortness of breath. RESPIRATORY: No cough, wheezing, or hemoptysis. MUSCULOSKELETAL: No joint or muscle swelling or pain. No neck or back pain. SKIN: No rash NEUROLOGIC: No headache, vertigo, loss of consciousness, or change in strength/ sensation. ENDOCRINE: No increased thirst. No abnormal weight change. HEMATOLOGIC/LYMPHATIC: No anemia, easy bleeding, or history of blood clots. ALLERGIC/IMMUNOLOGIC: No hives or skin allergy. <Vesta Walker - Last Filed: 10/12/17 12:17> *Physical Exam - Vital Signs Last Vital Signs Temp Pulse Resp BP Pulse Ox 98.6 F 56 L 16 149/49 99 10/12/17 10:48 10/12/17 10:48 10/12/17 10:48 10/12/17 10:48 10/12/17 10:48 - Physical Exam Comments: 10/12/17 12:15 GENERAL: The patient is in no acute distress. HEAD: Normal with no signs of trauma. EYES: PERRLA, EOMI, sclera anicteric, conjunctiva clear. ENT: Ears normal, nares patent, oropharynx clear without exudates. Moist mucous membranes. NECK: Normal range of motion, supple without lymphadenopathy, JVD, or masses. LUNGS: Breath sounds equal, clear to auscultation bilaterally. No wheezes, and no crackles. HEART:Regular rate and rhythm, normal S1 and S2 without murmur, rub or gallop. ABDOMEN: Soft, nontender, normoactive bowel sounds. No guarding, no rebound. No masses palpable. EXTREMITIES: Normal range of motion, no edema. No clubbing or cyanosis. No erythema, or tenderness. NEUROLOGICAL: Cranial nerves II through XII grossly intact. Normal speech. No focal neurological deficits. MUSCULOSKELETAL: Back non-tender to palpation, no CVA tenderness SKIN: Warm, Dry, normal turgor, no rashes or lesions noted. <Vetsa Walker - Last Filed: 10/12/17 12:17> - Vital Signs Last Vital Signs Temp Pulse Resp BP Pulse Ox 97.4 F L 53 L 18 142/52 100 10/12/17 10:28 10/12/17 10:28 10/12/17 10:28 10/12/17 10:28 10/12/17 10:28 <Lupis Spaulding - Last Filed: 10/12/17 13:01> Heart Score/ECG Review - History History: Moderately suspicious - Electrocardiogram EKG: Non specific repolarization disturbance - Age Age: >/= 65 - Risk Factors Risk Factors Heart Score: Yes Hx Hypercholesterolemia, Yes Hx Hypertension, Yes Hx Diabetes Based on the list above the patient has:: >/=3 risk factors or Hx atherosclerotic disease - Troponin Troponin: </= normal limit - Score Heart Score - Total: 6 <Lupis Spaulding - Last Filed: 10/12/17 13:01> ED Treatment Course - LABORATORY CBC & Chemistry Diagram: 10/12/17 11:10 10/12/17 11:10 - ADDITIONAL ORDERS Additional order review: Laboratory Results 10/12/17 11:10 Sodium 140 Potassium 4.3 Chloride 105 Carbon Dioxide 28 Anion Gap 7 L BUN 29 H Creatinine 1.7 H Creat Clearance w eGFR 40.40 Random Glucose 233 H D Calcium 9.6 Magnesium 1.9 Total Bilirubin 0.3 AST 10 L D ALT 10 L D Alkaline Phosphatase 82 D Creatine Kinase 21 L Troponin I < 0.02 B-Natriuretic Peptide 598.46 H Total Protein 6.7 Albumin 3.1 L 10/12/17 11:10 RBC 4.04 MCV 84.4 MCHC 32.4 RDW 16.9 H MPV 7.0 L Neutrophils % 59.5 Lymphocytes % 23.2 Monocytes % 14.3 H Eosinophils % 2.6 D Basophils % 0.4 - Medications Given in the ED: ED Medications Discontinued Medications Generic Name Dose Route Start Last Admin Trade Name Freq PRN Reason Stop Dose Admin Aspirin 162 mg 10/12/17 10:52 10/12/17 10:55 Asa - PO 10/12/17 10:53 162 mg ONCE ONE Administration <Vesta Walker - Last Filed: 10/12/17 12:17> - LABORATORY CBC & Chemistry Diagram: 10/12/17 11:10 10/12/17 11:10 <Lupis Spaulding - Last Filed: 10/12/17 13:01> Medical Decision Making - Medical Decision Making 10/12/17 10:49 Mr Hawkins is a 67 yr old man with hx of cadaveric renal transplant in 2013, uncontrolled DM, HTN, CAD with hx of stents 06/2017, chronic right foot ulcer s/ p recent admission for bacteremia and osteomyelitis. Pt presents to the ER with a complaint of chest pain Pt states pain has been present for the past 3-4 days, located in the left chest Exertional dyspnea No fevers, chills, cough EKG: Sinus rhythm rate of 5 bpm, axis nml, intervals nml, no st elevation or depression, t waves upright 10/12/17 12:47 10/12/17 12:48 Laboratory Tests 10/12/17 10/12/17 11:10 11:10 WBC 4.0 Hgb 11.1 L Hct 34.1 L Plt Count 254 D BUN 29 H Creatinine 1.7 H Random Glucose 233 H D Creatine Kinase 21 L Troponin I < 0.02 B-Natriuretic Peptide 598.46 H CXR: no acute findings Case reviewed with hospitalist Will admit to their service on telemetry Clinical Impression: chest pain <Lupis Spaulding - Last Filed: 10/12/17 13:01> *DC/Admit/Observation/Transfer - Attestations Scribe Attestion: 10/12/17 12:17 Documentation prepared by Vesta Walker, acting as medical insurance verifier for Lupis Spaulding MD. <Vesta Walker - Last Filed: 10/12/17 12:17> - Discharge Dispostion Decision to Admit order: Yes <Lupis Spaulding - Last Filed: 10/12/17 13:01> Diagnosis at time of Disposition: Chest pain Qualifiers: Chest pain type: unspecified Qualified Code(s): R07.9 - Chest pain, unspecified - Discharge Dispostion Condition at time of disposition: Stable
[2017-10-12] MEDS ORDERED: ASPIRIN 81 MG CHEWABLE TABLETS PO ONE (10:52)
[2017-10-12] MEDS ORDERED: ASPIRIN 81 MG CHEWABLE TABLETS ONE (10:56)
[2017-10-12 11:20] LABS: BASO % 0.4 % (0-2.0); EOS % 2.6 % (0-4.5); HEMATOCRIT 34.1 % (35.4-49); HEMOGLOBIN 11.1 GM/dL (11.7-16.9); LYMPH % 23.2 % (8-40); MCH 27.4 pg (25.7-33.7); MCHC 32.4 g/dl (32.0-35.9); MEAN CELL VOLUME 84.4 fl (80-96); MONO % 14.3 % (3.8-10.2); NEUT % 59.5 % (42.8-82.8); PLATELET COUNT 254 K/MM3 (134-434); RBC 4.04 M/mm3 (4.00-5.60); RDW 16.9 % (11.9-15.9)
[2017-10-12 11:42] LABS: ALBUMIN 3.1 g/dl (3.4-5.0); ANION GAP 7 MMOL/L (8-16); BILIRUBIN,TOTAL 0.3 mg/dL (0.2-1.0); BLOOD UREA NITROGEN 29 mg/dL (7-18); CALCIUM 9.6 mg/dL (8.5-10.1); CHLORIDE 105 mmol/L (98-107); CO2 28 mmol/L (21-32); CREATININE 1.7 mg/dL (0.7-1.3); GLUCOSE,RANDOM 233 mg/dL (74-106); MAGNESIUM 1.9 mg/dL (1.8-2.4); POTASSIUM 4.3 mmol/L (3.5-5.1); SGOT/AST 10 U/L (15-37); SGPT/ALT 10 U/L (12-78); SODIUM 140 mmol/L (136-145); TOT PROT 6.7 g/dl (6.4-8.2)
[2017-10-12 11:45] LABS: ALK PHOS 82 U/L (45-117); N-TERMINAL BNP 598.46 pg/ml (5-125)
--- NOTE | 2017-10-12 12:51 | HP ---
CHIEF COMPLAINT:abdominal pain with walking PCP:Earnest HISTORY OF PRESENT ILLNESS: 67M PMH of ESRD was on HD s/p donar renal transplant (2013, on immunotherapy), DM, HTN, CAD s/p stent on plavix and aspirin, BPH, GERD presents with a nckyef complaint of getting more and more tired when he walks. Patient states he gets LLQ abdominal pain for the past few days whenever he is walking and also gets very tired. He denies chest pain, shortness of breath, palpitations, edema, or anginal symptoms. Patient has a right diabetic foot ulcer and a right chest tunneled catheter for IV ABx. He has been receiving Vancomycin daily for osteomyelitis and is to complete a total of five weeks. He has been compliant. He denies nausea vomiting fever chills or GI symptoms. he is able to tolerate a diet and hydrate himself. ER course was notable for: (1)Labs (2)CXR (3)Aspirin Recent Travel:Denies PAST MEDICAL HISTORY:As above PAST SURGICAL HISTORY:Left AV fistula, Renal transplant, bedside debridements of right diabetic foot ulcer. Social History: Smoking:Denies Alcohol:Denies Drugs: Denies Family History:non contributory Allergies No Known Allergies Allergy (Verified 09/09/17 17:02) HOME MEDICATIONS: Home Medications Medication Instructions Recorded Amlodipine Besylate [Norvasc -] 5 mg PO DAILY 04/24/15 Clopidogrel Bisulfate [Plavix -] 75 mg PO DAILY 04/24/15 Ranitidine [Zantac -] 150 mg PO DAILY 04/24/15 Simvastatin [Zocor -] 20 mg PO HS 04/24/15 Tacrolimus [Astagraf Xl] 8 mg PO DAILY 04/24/15 Tamsulosin HCl [Flomax -] 0.4 mg PO BID 04/24/15 metFORMIN XR [Glucophage Xr -] 750 mg PO HS 04/24/15 Aspirin [ASA -] 325 mg PO DAILY 07/08/17 Azathioprine [Imuran] 150 mg PO DAILY 07/08/17 Ergocalciferol (Vitamin D2) 50,000 unit PO MONTHLY 07/08/17 [Vitamin D2] Isosorbide Mononitrate [Isosorbide 60 mg PO DAILY 07/08/17 Mononitrate ER] Nebivolol HCl [Bystolic] 20 mg PO DAILY 07/08/17 Polyethylene Glycol 3350 [Miralax 17 gm PO DAILY 07/08/17 119 gm Btl -] Prednisone 5 mg PO DAILY 07/08/17 Sitagliptin Phosphate [Januvia] 100 mg PO DAILY 07/08/17 Sodium Bicarbonate - 2 tab PO BID 07/08/17 Collagenase Clostridium Hist. 1 applic TP DAILY #1 applic 08/07/17 [Santyl -] Gauze Bandage 1 each TP DAILY #1 box 08/07/17 Insulin (Levemir) [Levemir Vial] 35 unit SQ HS #1 vial 08/07/17 Miscellaneous Drug Not In Syst 1 each ASDIR #1 misc 09/16/17 [Outpatient Lab Test] REVIEW OF SYSTEMS CONSTITUTIONAL: Absent: fever, chills, diaphoresis, generalized weakness, malaise, loss of appetite, weight change Present: Tired with walking HEENT: Absent: rhinorrhea, nasal congestion, throat pain, throat swelling, difficulty swallowing, mouth swelling, ear pain, eye pain, visual changes CARDIOVASCULAR: Absent: chest pain, syncope, palpitations, irregular heart rate, lightheadedness , peripheral edema RESPIRATORY: Absent: cough, shortness of breath, dyspnea with exertion, orthopnea, wheezing, stridor, hemoptysis GASTROINTESTINAL: Absent: abdominal distension, nausea, vomiting, diarrhea, constipation, melena , hematochezia Present: LLQ abdominal pain with prolonged walking GENITOURINARY: Absent: dysuria, frequency, urgency, hesitancy, hematuria, flank pain, genital pain MUSCULOSKELETAL: Absent: myalgia, arthralgia, joint swelling, back pain, neck pain SKIN: Absent: rash, itching, pallor HEMATOLOGIC/IMMUNOLOGIC: Absent: easy bleeding, easy bruising, lymphadenopathy, frequent infections ENDOCRINE: Absent: unexplained weight gain, unexplained weight loss, heat intolerance, cold intolerance NEUROLOGIC: Absent: headache, focal weakness or paresthesias, dizziness, unsteady gait, seizure, mental status changes, bladder or bowel incontinence PSYCHIATRIC: Absent: anxiety, depression, suicidal or homicidal ideation, hallucinations. PHYSICAL EXAMINATION Vital Signs - 24 hr 10/12/17 10/12/17 10/12/17 10:28 10:48 12:25 Temperature 97.4 F L 98.6 F 98.2 F Pulse Rate 53 L Pulse Rate [ 56 L 61 Left Apical] Respiratory 18 16 16 Rate Blood Pressure 142/52 Blood Pressure 149/49 162/55 [Right Arm] O2 Sat by Pulse 100 99 96 Oximetry (%) GENERAL: Awake, alert, and fully oriented, in no acute distress. HEAD: Normal with no signs of trauma. EYES: Pupils equal, round and reactive to light, extraocular movements intact, sclera anicteric EARS, NOSE, THROAT: Dry mucous membranes. NECK: Normal range of motion, supple without JVD LUNGS: Breath sounds equal, clear to auscultation bilaterally HEART: Regular rate and rhythm, normal S1 and S2 without murmur ABDOMEN: Soft, nontender, not distended, normoactive bowel sounds, no guarding, no rebound. Right abdomen incision well healed scar MUSCULOSKELETAL: Normal range of motion at all joints. No bony deformities or tenderness. No CVA tenderness. UPPER EXTREMITIES: warm, well-perfused. LOWER EXTREMITIES: warm, well-perfused. No calf tenderness. No peripheral edema. Right foot plantar surface with about a 1.5cm circular opening with deep tracking to bone. minimal serous drainage. Good granulation tissue. NEUROLOGICAL: Cranial nerves II-XII intact. Normal speech. SKIN: Warm, dry Laboratory Results - last 24 hr 10/12/17 10/12/17 11:10 11:10 WBC 4.0 RBC 4.04 Hgb 11.1 L Hct 34.1 L MCV 84.4 MCH 27.4 MCHC 32.4 RDW 16.9 H Plt Count 254 D MPV 7.0 L Absolute Neuts (auto) 2.3 Neutrophils % 59.5 Lymphocytes % 23.2 Monocytes % 14.3 H Eosinophils % 2.6 D Basophils % 0.4 Nucleated RBC % 0 Sodium 140 Potassium 4.3 Chloride 105 Carbon Dioxide 28 Anion Gap 7 L BUN 29 H Creatinine 1.7 H Creat Clearance w eGFR 40.40 Random Glucose 233 H D Calcium 9.6 Magnesium 1.9 Total Bilirubin 0.3 AST 10 L D ALT 10 L D Alkaline Phosphatase 82 D Creatine Kinase 21 L Troponin I < 0.02 B-Natriuretic Peptide 598.46 H Total Protein 6.7 Albumin 3.1 L Active Orders 24 hr Category Date Time Status Decision to Admit to Hospital Routine Admission 10/12/17 13:[address] in Observation ONCE Admission 10/12/17 14:28 Active ELECTROCARDIOGRAM [CARD] Stat Cardiology 10/12/17 10:52 Ordered Activity, OOB w Assist As tolerated Care 10/12/17 14:27 Active Activity, Shower DAILY Care 10/12/17 14:27 Active BGM (Blood Glucose Monitoring) ACHS Care 10/12/17 14:27 Active BRP w/Assist As tolerated Care 10/12/17 14:27 Active Cardiac Monitoring Continuous Care 10/12/17 10:52 Active Early ambulation QS Care 10/12/17 14:29 Active IV Insert NOW Care 10/12/17 10:52 Active Insert Saline Lock NOW Care 10/12/17 14:28 Active NPO (in ED only) NOW Care 10/12/17 10:52 Active SCDs, apply Both legs Care 10/12/17 14:32 Active System Assessment Q8H Care 10/12/17 14:29 Active Vital Signs Q4H Care 10/12/17 14:29 Active Physician Consultation Physician 1 Cons 10/12/17 14:27 Ordered Diabetic Diet [DT] Diet 10/12/17 Dinner Active BASIC METABOLIC PANEL Routine Lab 10/13/17 06:00 Ordered CBC [COMPLETE BLOOD COUNT] Routine Lab 10/13/17 06:00 Ordered MAGNESIUM Routine Lab 10/13/17 06:00 Ordered PHOSPHOROUS Routine Lab 10/13/17 06:00 Ordered VANCOMYCIN RANDOM Routine Lab 10/13/17 06:00 Ordered Amlodipine Besylate [Norvasc -] Medication 10/13/17 10:00 Active 5 mg PO DAILY Aspirin [ASA -] Medication 10/13/17 10:00 Active 325 mg PO DAILY Atorvastatin Ca [Lipitor -] Medication 10/12/17 22:00 Active 10 mg PO HS Azathioprine [Imuran -] Medication 10/13/17 10:00 Active 150 mg PO DAILY Clopidogrel Bisulfate [Plavix -] Medication 10/13/17 10:00 Active 75 mg PO DAILY Collagenase Clostridium Hist. [Santyl -] Medication 10/13/17 10:00 Active 1 applic TP DAILY Heparin - Medication 10/12/17 15:00 Active 5,000 unit SQ TID Insulin (Levemir) [Levemir Vial] Medication 10/12/17 22:00 Active 35 units SQ HS Insulin Sliding Scale [Novolog Vial Sliding Scale -] Medication 10/12/17 16: 30 Active 1 vial SQ TIDAC Isosorbide Mononitrate [Imdur -] Medication 10/13/17 10:00 Active 60 mg PO DAILY Nebivolol [Bystolic -] Medication 10/13/17 10:00 Active 20 mg PO DAILY Polyethylene Glycol 3350 [Miralax (For Daily Use) -] Medication 10/13/17 10: 00 Active 17 gm PO DAILY Ranitidine [Zantac -] Medication 10/13/17 10:00 Active 150 mg PO DAILY Sodium Bicarbonate - Medication 10/12/17 22:00 Active 1,300 mg PO BID Sodium Chloride [Normal Saline -] 1,000 ml Medication 10/12/17 14:30 Active IV ASDIR Tacrolimus [Astagraf Xl] Medication 10/13/17 10:00 Ordered 8 mg PO DAILY Tamsulosin HCl [Flomax -] Medication 10/12/17 22:00 Active 0.4 mg PO BID predniSONE [Deltasone -] Medication 10/13/17 10:00 Active 5 mg PO DAILY Strict Intake/Output QSHIFT Phy Order 10/12/17 15:00 Ordered Strict Intake/Output QSHIFT Phy Order 10/12/17 23:00 Ordered VTE Risk Level/Orders Routine Phy Order 10/12/17 14:28 Ordered Reminder: new phy cons See Order Reminders 10/12/17 14:29 Ordered EKG: NSR No ST-T wave changes CXR: Clear ASSESSMENT/PLAN: 67M with multiple medical problems presets to the ED with LLQ abdominal pain and feeling tired when he ambulates. Tired when ambulating: Patient Likely dehydrated and/or volume depleted given dry mucous membranes GERALDINE on CKD which is likely prerenal. Will hydrate patient will get PT consult LLQ when ambulating: could be due to muscular strain could be psoas strain abdomen non tender movement of left leg does not illicit pain could be muscular cramping due to dehydration ESRD s/p donor renal transplant: continue tacrolimus continue prednisone continue azothiaprine GERALDINE: likely due to IVF NS @ 75ml/hr Trend creatinine Renally dose all meds avoid nephrotoxic agents DM: Continue levemir 35 units HS Stop oral hypoglycemics while inpatient insulin sliding scale CAD: Continue aspirin continue plavix continue IMDUR Diastolic CHF on echo less than a month ago: BNP elevated but could be due to history of CKD as patient does not seem fluid overloaded and recently had an Echo which showed impaired relaxation Diabetic foot ulcer/Osteomyelitis right foot Continue Vancomycin daily continue collagenase daily Will consult ID-known to Dr. Mclain Will check random vanco level in AM HTN: Continue Nebivolol continue Norvasc HLD: continue statin (substitute Lipitor for Zocor) BPH: Continue flomax BID GERD: continue Zantac FEN: NS @ 75ml/hr no electrolyte issues diabetic controlled diet PPx: SCDs/HSQ Zantac PT consult Case discussed with Dr. Lynch Visit type - Emergency Visit Emergency Visit: Yes ED Registration Date: 10/12/17 Care time: The patient presented to the Emergency Department on the above date and was hospitalized for further evaluation of their emergent condition. - New Patient This patient is new to me today: Yes Date on this admission: 10/12/17 - Critical Care Critical Care patient: No Hospitalist Screening - Colonoscopy Questionnaire Colonoscopy Questionnaire: Colonoscopy Questionnaire - Patient: 50 - 75 years old and never had a screening colonoscopy: No History of colon or rectal polyps, or CA: No History of IBD, Crohn's disease or UC: No History of abdominal radiation therapy as a child: No - Relative: 1 with colon or rectal CA, or polyps at age 60 or younger: No Colon or rectal CA diagnosed at age 45 or younger: No Multiple relatives with colon or rectal CA: No - Outcome: Screening Result: Negative Screen
[2017-10-12 13:03] LABS: INR 0.91 (0.83-1.09)
[2017-10-12 13:12] LABS: PROTHROMBIN TIME (PATIENT) 10.3 SEC (9.7-13.0)
--- NOTE | 2017-10-12 14:17 | PN ---
Teaching Attending Note Name of Resident: Dillan Mcmullen ATTENDING PHYSICIAN STATEMENT I saw and evaluated the patient. I reviewed the resident's note and discussed the case with the resident. I agree with the resident's findings and plan as documented. SUBJECTIVE: This is a 67 year old man with a history of ESRD, renal transplant, type 2 DM, HTN, hyperlipidemia, CAD with stents, diastolic dysfunction, right foot ulcer with osteomyelitis, BPH, GERD, anemia who comes to the ED complaining of LLQ abdominal pain and fatigue when he walks for the last few days. He denies chest pain, shortness of breath, palpitations, dizziness, diaphoresis. He is currently coming to the infusion center daily for Vancomycin IV for right foot osteomyelitis. OBJECTIVE: Vital Signs Period Temp Pulse Resp BP Sys/Oliveira Pulse Ox Last 24 Hr 97.4 F-98.6 F 53-61 16-18 142-162/49-55 96-100 HEART: S1S2, RRR LUNGS: Clear ABDOMEN: Soft, non-tender, non-distended, normal BS EXTREMITIES: No edema Laboratory Tests 10/12/17 10/12/17 10/12/17 11:10 11:10 11:10 WBC 4.0 RBC 4.04 Hgb 11.1 L Hct 34.1 L MCV 84.4 MCH 27.4 MCHC 32.4 RDW 16.9 H Plt Count 254 D MPV 7.0 L Absolute Neuts (auto) 2.3 Neutrophils % 59.5 Lymphocytes % 23.2 Monocytes % 14.3 H Eosinophils % 2.6 D Basophils % 0.4 Nucleated RBC % 0 PT with INR 10.30 INR 0.91 Sodium 140 Potassium 4.3 Chloride 105 Carbon Dioxide 28 Anion Gap 7 L BUN 29 H Creatinine 1.7 H Creat Clearance w eGFR 40.40 Random Glucose 233 H D Calcium 9.6 Magnesium 1.9 Total Bilirubin 0.3 AST 10 L D ALT 10 L D Alkaline Phosphatase 82 D Creatine Kinase 21 L Troponin I < 0.02 B-Natriuretic Peptide 598.46 H Total Protein 6.7 Albumin 3.1 L Home Medications Medication Instructions Recorded Amlodipine Besylate [Norvasc -] 5 mg PO DAILY 04/24/15 Clopidogrel Bisulfate [Plavix -] 75 mg PO DAILY 04/24/15 Ranitidine [Zantac -] 150 mg PO DAILY 04/24/15 Simvastatin [Zocor -] 20 mg PO HS 04/24/15 Tacrolimus [Astagraf Xl] 8 mg PO DAILY 04/24/15 Tamsulosin HCl [Flomax -] 0.4 mg PO BID 04/24/15 metFORMIN XR [Glucophage Xr -] 750 mg PO HS 04/24/15 Aspirin [ASA -] 325 mg PO DAILY 07/08/17 Azathioprine [Imuran] 150 mg PO DAILY 07/08/17 Ergocalciferol (Vitamin D2) 50,000 unit PO MONTHLY 07/08/17 [Vitamin D2] Isosorbide Mononitrate [Isosorbide 60 mg PO DAILY 07/08/17 Mononitrate ER] Nebivolol HCl [Bystolic] 20 mg PO DAILY 07/08/17 Polyethylene Glycol 3350 [Miralax 17 gm PO DAILY 07/08/17 119 gm Btl -] Prednisone 5 mg PO DAILY 07/08/17 Sitagliptin Phosphate [Januvia] 100 mg PO DAILY 07/08/17 Sodium Bicarbonate - 2 tab PO BID 07/08/17 Collagenase Clostridium Hist. 1 applic TP DAILY #1 applic 08/07/17 [Santyl -] Gauze Bandage 1 each TP DAILY #1 box 08/07/17 Insulin (Levemir) [Levemir Vial] 35 unit SQ HS #1 vial 08/07/17 Miscellaneous Drug Not In Syst 1 each ASDIR #1 misc 09/16/17 [Outpatient Lab Test] ASSESSMENT AND PLAN: This is a 67 year old man with a history of ESRD, renal transplant, type 2 DM, HTN, hyperipidemia, CAD with stents, diastolic dysfunction, right foot ulcer with osteomyelitis, BPH, GERD, anemia who presented to the ED with LLQ abdominal pain and fatigue when walking. 1. Acute kidney injury - IV fluid - Hold metformin - Monitor BUN, creatinine 2. Plantar ulcer with osteomyelitis of right foot - Continue Vancomycin x 5 weeks total - Continue wound care with Santyl 3. HTN - Continue Norvasc, Bystolic 4. Hyperlipidemia - Continue Zocor 5. Diastolic dysfunction - No evidence of CHF 6. Type 2 DM - Continue Levemir - Fingersticks with Novolog sliding scale - Hold Januvia, metformin 7. CAD, history of stents - Continue aspirin, Bystolic, Plavix, Zocor, Imdur 8. ESRD, history of renal transplant - Continue Prednisone, tacrolimus, azathioprine 9. Anemia secondary to chronic illness - Hemoglobin stable 10. BPH - Continue Flomax
[2017-10-12] MEDS: SODIUM CHLORIDE 1,000 ML IV SCH ×2 (14:34→22:22)
[2017-10-12] MEDS ORDERED: amLODIPine BESYLATE 5 MG TABLET (FP) PO ONE (15:18)
--- NOTE | 2017-10-12 15:26 | EKG ---
Test Reason : Blood Pressure : / mmHG Vent. Rate : 055 BPM Atrial Rate : 055 BPM P-R Int : 170 ms QRS Dur : 098 ms QT Int : 424 ms P-R-T Axes : 069 -25 026 degrees QTc Int : 405 ms SINUS BRADYCARDIA OTHERWISE NORMAL ECG WHEN COMPARED WITH ECG OF 20-AUG-2017 16:40, NO SIGNIFICANT CHANGE WAS FOUND Confirmed by PORSHA MCBRIDE MD ([id number]) on 10/12/2017 3:26:07 PM Referred By: Víctor Mclain Confirmed By:PORSHA MCBRIDE MD
[2017-10-12] MEDS: HEPARIN NA (PORCINE) 5,000 UNITS/ML 1ML VIAL SQ SCH ×2 (16:04→22:16)
[2017-10-12] MEDS: INSULIN SLIDING SCALE (NOVOLOG) 1 VIAL SQ SCH (17:26)
[2017-10-12] MEDS ORDERED: INSULIN (NOVOLOG) ASPART 100 UNITS/ML 10ML VIAL ONE (17:27)
[2017-10-12] MEDS ORDERED: ATORVASTATIN CA 10 MG TABLET (FP) PO SCH (22:00)
[2017-10-12] MEDS ORDERED: INSULIN (LEVEMIR) 100 UNITS/ML UNITS SQ SCH (22:00)
[2017-10-12] MEDS ORDERED: INSULIN (LEVEMIR) 100 UNITS/ML UNITS SQ ONE (22:08)
[2017-10-12] MEDS: SODIUM BICARBONATE 650 MG TABLET PO SCH (22:16)
[2017-10-12] MEDS: TAMSULOSIN HCL 0.4 MG CAP.ER.24H (FP) PO SCH (22:16)
[2017-10-13] MEDS: INSULIN SLIDING SCALE (NOVOLOG) 1 VIAL SQ SCH ×2 (06:14→12:23)
[2017-10-13] MEDS: HEPARIN NA (PORCINE) 5,000 UNITS/ML 1ML VIAL SQ SCH (06:14)
[2017-10-13 07:14] LABS: HEMATOCRIT 33.3 % (35.4-49); HEMOGLOBIN 10.6 GM/dL (11.7-16.9); MCH 26.8 pg (25.7-33.7); MCHC 31.9 g/dl (32.0-35.9); MEAN PLT VOLUME 7.1 fl (7.5-11.1); PLATELET COUNT 257 K/MM3 (134-434); RBC 3.97 M/mm3 (4.00-5.60); RDW 17.7 % (11.9-15.9); WHITE BLOOD COUNT 2.9 K/mm3 (4.0-10.0)
[2017-10-13 07:48] LABS: ANION GAP 8 MMOL/L (8-16); BLOOD UREA NITROGEN 26 mg/dL (7-18); CALCIUM 9.4 mg/dL (8.5-10.1); CHLORIDE 106 mmol/L (98-107); CO2 27 mmol/L (21-32); CREATININE 1.2 mg/dL (0.7-1.3); GLUCOSE,RANDOM 266 mg/dL (74-106); MAGNESIUM 1.7 mg/dL (1.8-2.4); PHOSPHOROUS 2.4 mg/dL (2.5-4.9); POTASSIUM 4.8 mmol/L (3.5-5.1); SODIUM 141 mmol/L (136-145)
[2017-10-13] MEDS ORDERED: MAGNESIUM OXIDE 400 MG TABLET (FP) PO ONE (09:00)
[2017-10-13] MEDS ORDERED: NAPH,MB-DB/K PH,MBDB POWDER PACKET PO ONE (09:00)
[2017-10-13] MEDS ORDERED: VANCOMYCIN 1 GM PREMIX - 1 GM/200 ML BAG IVPB ONE (09:00)
[2017-10-13] MEDS: TAMSULOSIN HCL 0.4 MG CAP.ER.24H (FP) PO SCH (09:38)
[2017-10-13] MEDS: SODIUM BICARBONATE 650 MG TABLET PO SCH (09:38)
[2017-10-13] MEDS ORDERED: COLLAGENASE CLOSTRIDIUM HIST. 30 GRAMS TUBE TP SCH (10:00)
[2017-10-13] MEDS ORDERED: TACROLIMUS PO SCH (10:00)
[2017-10-13] MEDS ORDERED: POLYETHYLENE GLYCOL 3350 119 GM BTL PO SCH (10:00)
[2017-10-13] MEDS ORDERED: CLOPIDOGREL BISULFATE 75 MG TABLET (FP) PO SCH (10:00)
[2017-10-13] MEDS ORDERED: azaTHIOprine 50 MG TABLET PO SCH (10:00)
[2017-10-13] MEDS ORDERED: amLODIPine BESYLATE 5 MG TABLET (FP) PO SCH (10:00)
[2017-10-13] MEDS ORDERED: RANITIDINE HCL 150 MG TABLET (FP) PO SCH (10:00)
[2017-10-13] MEDS ORDERED: ISOSORBIDE MONONITRATE 60 MG TAB.SR.24H (FP) PO SCH (10:00)
[2017-10-13] MEDS ORDERED: TACROLIMUS ANHYDROUS 1 MG CAPSULE PO SCH (10:00)
[2017-10-13] MEDS ORDERED: predniSONE 5 MG TABLET (UD) PO SCH (10:00)
[2017-10-13] MEDS ORDERED: ASPIRIN 325 MG TABLET PO SCH (10:00)
[2017-10-13] MEDS ORDERED: NEBIVOLOL 10 MG TABLET (FP) PO SCH (10:00)
--- NOTE | 2017-10-13 10:46 | DS ---
Physical Exam: SUBJECTIVE: Patient seen and examined at bedside refusing to speak or answer questions with broomcorn press feeder OBJECTIVE: Vital Signs Period Temp Pulse Resp BP Sys/Oliveira Pulse Ox Last 24 Hr 98.1 F-98.6 F 56-68 16-20 121-162/49-61 96-100 PHYSICAL EXAM GENERAL: Awake, alert, and fully oriented, in no acute distress. HEAD: Normal with no signs of trauma. EYES: Pupils equal, round and reactive to light, extraocular movements intact, sclera anicteric EARS, NOSE, THROAT: Dry mucous membranes. NECK: Normal range of motion, supple without JVD LUNGS: Breath sounds equal, clear to auscultation bilaterally HEART: Regular rate and rhythm, normal S1 and S2 without murmur ABDOMEN: Soft, nontender, not distended, normoactive bowel sounds, no guarding, no rebound. Right abdomen incision well healed scar MUSCULOSKELETAL: Normal range of motion at all joints. No bony deformities or tenderness. No CVA tenderness. UPPER EXTREMITIES: warm, well-perfused. LOWER EXTREMITIES: warm, well-perfused. No calf tenderness. No peripheral edema. Right foot plantar surface with about a 1.5cm circular opening with deep tracking to bone. minimal serous drainage. Good granulation tissue. NEUROLOGICAL: Cranial nerves II-XII intact. Normal speech. LABS Laboratory Results - last 24 hr 10/12/17 10/12/17 10/12/17 11:10 11:10 11:10 WBC 4.0 RBC 4.04 Hgb 11.1 L Hct 34.1 L MCV 84.4 MCH 27.4 MCHC 32.4 RDW 16.9 H Plt Count 254 D MPV 7.0 L Absolute Neuts (auto) 2.3 Neutrophils % 59.5 Lymphocytes % 23.2 Monocytes % 14.3 H Eosinophils % 2.6 D Basophils % 0.4 Nucleated RBC % 0 PT with INR 10.30 INR 0.91 Sodium 140 Potassium 4.3 Chloride 105 Carbon Dioxide 28 Anion Gap 7 L BUN 29 H Creatinine 1.7 H Creat Clearance w eGFR 40.40 POC Glucometer Random Glucose 233 H D Calcium 9.6 Phosphorus Magnesium 1.9 Total Bilirubin 0.3 AST 10 L D ALT 10 L D Alkaline Phosphatase 82 D Creatine Kinase 21 L Troponin I < 0.02 B-Natriuretic Peptide 598.46 H Total Protein 6.7 Albumin 3.1 L Random Vancomycin 10/12/17 10/13/17 10/13/17 20:47 06:12 06:30 WBC RBC Hgb Hct MCV MCH MCHC RDW Plt Count MPV Absolute Neuts (auto) Neutrophils % Lymphocytes % Monocytes % Eosinophils % Basophils % Nucleated RBC % PT with INR INR Sodium Potassium Chloride Carbon Dioxide Anion Gap BUN Creatinine Creat Clearance w eGFR POC Glucometer 160 270 Random Glucose Calcium Phosphorus Magnesium Total Bilirubin AST ALT Alkaline Phosphatase Creatine Kinase Troponin I B-Natriuretic Peptide Total Protein Albumin Random Vancomycin 5.93 10/13/17 10/13/17 06:30 06:30 WBC 2.9 L RBC 3.97 L Hgb 10.6 L Hct 33.3 L MCV 84.0 MCH 26.8 MCHC 31.9 L RDW 17.7 H Plt Count 257 MPV 7.1 L Absolute Neuts (auto) Neutrophils % Lymphocytes % Monocytes % Eosinophils % Basophils % Nucleated RBC % PT with INR INR Sodium 141 Potassium 4.8 Chloride 106 Carbon Dioxide 27 Anion Gap 8 BUN 26 H Creatinine 1.2 Creat Clearance w eGFR > 60 POC Glucometer Random Glucose 266 H Calcium 9.4 Phosphorus 2.4 L Magnesium 1.7 L Total Bilirubin AST ALT Alkaline Phosphatase Creatine Kinase Troponin I B-Natriuretic Peptide Total Protein Albumin Random Vancomycin HOSPITAL COURSE: Date of Admission:10/12/17 Date of Discharge: 10/13/17 67M with multiple medical problems presented to the hospital with a chief complaint of LLQ pain and getting tired when he walks. he denied nausea vomiting fever chills chest pain or shortness of breath. He was found to be volume depleted and was given IV fluids. Patient walked well with physical therapy but he refuses to use a walker or cane here or at home. He was counselled about walking with assistance and the risks of not doing so but he still refuses. Patient was found to have GERALDINE likely secondary to volume depletion as it resolved with IV fluids. Patient feels better and is stable for discharge. Minutes to complete discharge: 35 Discharge Summary Reason For Visit: CHEST PAIN Current Active Problems Chest pain (Acute) Fatigue (Acute) Hyperlipidemia (Chronic) Hypertension (Chronic) Condition: Stable - Instructions Diet, Activity, Other Instructions: You do not need to come back to the hospital today for antibiotics. You can continue to come for antibiotics everyday starting tomorrow. Please continue taking all your medications. If you have worsening symptoms please call your doctor and/or go to the nearest emergency room. You were observed in the hospital for fatigue and left abdominal pain when you walk. You were able to walk without an issues with physical therapy. Please keep yourself hydrated. You must follow up with your primary care doctor for routine follow up. Please call for an appointment today. Disposition: HOME - Home Medications Comprehensive Discharge Medication List: Ambulatory Orders Amlodipine Besylate [Norvasc -] 5 mg PO DAILY 04/24/15 Clopidogrel Bisulfate [Plavix -] 75 mg PO DAILY 04/24/15 Ranitidine [Zantac -] 150 mg PO DAILY 04/24/15 Simvastatin [Zocor -] 20 mg PO HS 04/24/15 Tacrolimus [Astagraf Xl] 8 mg PO DAILY 04/24/15 Tamsulosin HCl [Flomax -] 0.4 mg PO BID 04/24/15 metFORMIN XR [Glucophage Xr -] 750 mg PO HS 04/24/15 Aspirin [ASA -] 325 mg PO DAILY 07/08/17 Azathioprine [Imuran] 150 mg PO DAILY 07/08/17 Ergocalciferol (Vitamin D2) [Vitamin D2] 50,000 unit PO MONTHLY 07/08/17 Isosorbide Mononitrate [Isosorbide Mononitrate ER] 60 mg PO DAILY 07/08/17 Nebivolol HCl [Bystolic] 20 mg PO DAILY 07/08/17 Polyethylene Glycol 3350 [Miralax 119 gm Btl -] 17 gm PO DAILY 07/08/17 Prednisone 5 mg PO DAILY 07/08/17 Sitagliptin Phosphate [Januvia] 100 mg PO DAILY 07/08/17 Sodium Bicarbonate - 2 tab PO BID 07/08/17 Collagenase Clostridium Hist. [Santyl -] 1 applic TP DAILY #1 applic 08/07/17 Gauze Bandage 1 each TP DAILY #1 box 08/07/17 Insulin (Levemir) [Levemir Vial] 35 unit SQ HS #1 vial 08/07/17 Miscellaneous Drug Not In Syst [Outpatient Lab Test] 1 each ASDIR #1 misc 11/24 This patient is new to me today: No Emergency Visit: Yes ED Registration Date: 10/12/17 Care time: The patient presented to the Emergency Department on the above date and was hospitalized for further evaluation of their emergent condition. Critical Care patient: No - Discharge Referral Referred to [facility] Med P.[facility] No
[2017-10-13 11:42] VITALS: BP 136/50; PULSE 64; TEMP 98.2
--- NOTE | 2017-10-13 13:01 | PN ---
Teaching Attending Note Name of Resident: Dillan Mcmullen ATTENDING PHYSICIAN STATEMENT I saw and evaluated the patient. I reviewed the resident's note and discussed the case with the resident. I agree with the resident's findings and plan as documented. SUBJECTIVE: Patient has no complaints. OBJECTIVE: Vital Signs Period Temp Pulse Resp BP Sys/Oliveira Pulse Ox Last 24 Hr 98.1 F-98.4 F 63-68 16-20 121-156/50-61 98-100 HEART: S1S2, RRR LUNGS: Clear ABDOMEN: Soft, non-tender, non-distended, normal BS EXTREMITIES: No edema Laboratory Results - last 24 hr 10/12/17 10/12/17 10/13/17 11:10 20:47 06:12 WBC RBC Hgb Hct MCV MCH MCHC RDW Plt Count MPV PT with INR 10.30 INR 0.91 Sodium Potassium Chloride Carbon Dioxide Anion Gap BUN Creatinine Creat Clearance w eGFR POC Glucometer 160 270 Random Glucose Calcium Phosphorus Magnesium Random Vancomycin 10/13/17 10/13/17 10/13/17 06:30 06:30 06:30 WBC 2.9 L RBC 3.97 L Hgb 10.6 L Hct 33.3 L MCV 84.0 MCH 26.8 MCHC 31.9 L RDW 17.7 H Plt Count 257 MPV 7.1 L PT with INR INR Sodium 141 Potassium 4.8 Chloride 106 Carbon Dioxide 27 Anion Gap 8 BUN 26 H Creatinine 1.2 Creat Clearance w eGFR > 60 POC Glucometer Random Glucose 266 H Calcium 9.4 Phosphorus 2.4 L Magnesium 1.7 L Random Vancomycin 5.93 10/13/17 12:22 WBC RBC Hgb Hct MCV MCH MCHC RDW Plt Count MPV PT with INR INR Sodium Potassium Chloride Carbon Dioxide Anion Gap BUN Creatinine Creat Clearance w eGFR POC Glucometer 152 Random Glucose Calcium Phosphorus Magnesium Random Vancomycin Current Medications Generic Name Dose Route Start Last Admin Trade Name Freq PRN Reason Stop Dose Admin Amlodipine Besylate 5 mg 10/13/17 10:00 10/13/17 09:39 Norvasc - PO 5 mg DAILY LIDIA Administration Aspirin 325 mg 10/13/17 10:00 10/13/17 09:39 Asa - PO 325 mg DAILY LIDIA Administration Atorvastatin Calcium 10 mg 10/12/17 22:00 10/12/17 22:16 Lipitor - PO 10 mg HS LIDIA Administration Azathioprine 150 mg 10/13/17 10:00 10/13/17 11:00 Imuran - PO 150 mg DAILY LIDIA Administration Clopidogrel Bisulfate 75 mg 10/13/17 10:00 10/13/17 10:03 Plavix - PO 75 mg DAILY LIDIA Administration Collagenase 1 applic 10/13/17 10:00 10/13/17 09:42 Santyl - TP 1 applic DAILY LIDIA Administration Protocol Heparin Sodium (Porcine) 5,000 unit 10/12/17 15:00 10/13/17 06:14 Heparin - SQ 5,000 unit TID LIDIA Administration Sodium Chloride 1,000 mls @ 75 mls/hr 10/12/17 14:30 10/12/17 22:22 Normal Saline - IV 75 mls/hr ASDIR LIDIA Administration Insulin Aspart 1 vial 10/12/17 16:30 10/13/17 12:23 Novolog Vial Sliding Scale - SQ 2 units TIDAC LIDIA Administration Protocol Insulin Detemir 35 units 10/12/17 22:00 10/12/17 22:17 Levemir Vial SQ 35 units HS LIDIA Administration Isosorbide Mononitrate 60 mg 10/13/17 10:00 10/13/17 09:38 Imdur - PO 60 mg DAILY LIDIA Administration Nebivolol 20 mg 10/13/17 10:00 10/13/17 09:38 Bystolic - PO 20 mg DAILY LIDIA Administration Polyethylene Glycol 17 gm 10/13/17 10:00 10/13/17 10:03 Miralax (For Daily Use) - PO 17 gm DAILY LIDIA Administration Prednisone 5 mg 10/13/17 10:00 10/13/17 09:38 Deltasone - PO 5 mg DAILY LIDIA Administration Ranitidine HCl 150 mg 10/13/17 10:00 10/13/17 09:38 Zantac - PO 150 mg DAILY LIDIA Administration Sodium Bicarbonate 1,300 mg 10/12/17 22:00 10/13/17 09:38 Sodium Bicarbonate - PO 1,300 mg BID LIDIA Administration Tacrolimus 4 mg 10/13/17 10:00 10/13/17 09:41 Prograf PO 4 mg BID LIDIA Administration Tamsulosin HCl 0.4 mg 10/12/17 22:00 10/13/17 09:38 Flomax - PO 0.4 mg BID LIDIA Administration ASSESSMENT AND PLAN: This is a 67 year old man with a history of ESRD, renal transplant, type 2 DM, HTN, hyperipidemia, CAD with stents, diastolic dysfunction, right foot ulcer with osteomyelitis, BPH, GERD, anemia who presented to the ED with LLQ abdominal pain and fatigue when walking. 1. Acute kidney injury - Improved with IV fluid 2. Plantar ulcer with osteomyelitis of right foot - Continue Vancomycin x 5 weeks total, wound care with Santyl 3. HTN - Continue Norvasc, Bystolic 4. Hyperlipidemia - Continue Zocor 5. Diastolic dysfunction - No evidence of CHF 6. Type 2 DM - Continue Levemir - Resume Januvia, metformin at discharge 7. CAD, history of stents - Continue aspirin, Bystolic, Plavix, Zocor, Imdur 8. ESRD, history of renal transplant - Continue Prednisone, tacrolimus, azathioprine 9. Anemia secondary to chronic illness 10. BPH - Continue Flomax 11. Ok for discharge home
== END 2017-10-13 13:08 | disposition home or self-care (01) ==
LOC: JER 10:27 → JERBED 13:01 → J8W 21:17
PROVIDERS: ADMIT Internal Medicine; ATTEND Internal Medicine
PROC: 3E03329 Introduction of Other Anti-infective into Peripheral Vein, Percutaneous Approach (ICD-10-PCS; principal; 2017-10-12)
PROC: 3E0337Z Introduction of Electrolytic and Water Balance Substance into Peripheral Vein, Percutaneous Approach (ICD-10-PCS; 2017-10-12)
PROC: 3E013VG Introduction of Insulin into Subcutaneous Tissue, Percutaneous Approach (ICD-10-PCS; 2017-10-12)
PROC: 3E013GC Introduction of Other Therapeutic Substance into Subcutaneous Tissue, Percutaneous Approach (ICD-10-PCS; 2017-10-12)
DX: R07.9 Chest pain, unspecified (principal); E11.22 Type 2 diabetes mellitus with diabetic chronic kidney disease; I12.0 Hypertensive chronic kidney disease with stage 5 chronic kidney disease or end stage renal disease; N18.6 End stage renal disease; N17.9 Acute kidney failure, unspecified; Z94.0 Kidney transplant status; Z79.4 Long term (current) use of insulin; E11.621 Type 2 diabetes mellitus with foot ulcer; M86.8X7 Other osteomyelitis, ankle and foot; I25.10 Atherosclerotic heart disease of native coronary artery without angina pectoris; N40.0 Benign prostatic hyperplasia without lower urinary tract symptoms; E78.5 Hyperlipidemia, unspecified; R53.83 Other fatigue; Z79.82 Long term (current) use of aspirin; Z79.01 Long term (current) use of anticoagulants
CPT/HCPCS: 36415; 71045-TC-FY; 80048; 80053; 82550; 82962; 83735; 83880; 84100; 84484; 85025; 85027; 85610; 93005; 93010; 96365; 96372; 97116-GP; 97161-GP; 99285-25; G0378; G0480; J1644; J7030

== ENCOUNTER 2017-10-15 10:41 | Day surgery (SDC) | payer OTHER ==
[2017-10-15] MEDS ORDERED: VANCOMYCIN 750 MG in DEXTROSE 5%-WATER - 250 ML IVPB ONE (11:00)
[2017-10-15 13:30] VITALS: BP 146/68; PULSE 64; TEMP 98.2
== END 2017-10-15 14:22 | disposition home or self-care (01) ==
LOC: JINFUSION 10:41 → J7W 10:42 → JINFUSION 14:22
PROVIDERS: ATTEND Internal Medicine
DX: M86.8X7 Other osteomyelitis, ankle and foot (principal)
CPT/HCPCS: 96365; 96366

== ENCOUNTER 2017-10-17 10:16 | Day surgery (SDC) | payer OTHER ==
[2017-10-17 10:57] VITALS: BP 156/64; PULSE 59; TEMP 97.8
[2017-10-17] MEDS ORDERED: VANCOMYCIN 750 MG in SODIUM CHLORIDE 250 ML IVPB ONE (11:45)
== END 2017-10-17 12:50 | disposition home or self-care (01) ==
LOC: JASU-ENDO 10:16
PROVIDERS: ATTEND Internal Medicine
DX: M86.8X7 Other osteomyelitis, ankle and foot (principal)
CPT/HCPCS: 96365; 96366

== ENCOUNTER 2017-10-18 09:49 | Day surgery (SDC) | payer OTHER ==
[~2017-10-18 09:49] MED LIST changes: -VANCOMYCIN 1,000 MG in SODIUM CHLORIDE 250 ML IVPB ONE; +VANCOMYCIN 750 MG in SODIUM CHLORIDE 250 ML IVPB ONE
[2017-10-18 10:24] VITALS: BP 142/51; PULSE 62; TEMP 97.9
== END 2017-10-18 11:35 | disposition home or self-care (01) ==
LOC: JASU-ENDO 09:49
PROVIDERS: ATTEND Internal Medicine
DX: M86.8X7 Other osteomyelitis, ankle and foot (principal)
CPT/HCPCS: 82962; 96365; 96366; G0277

== ENCOUNTER 2017-10-19 09:46 | Day surgery (SDC) | payer OTHER ==
[2017-10-19] MEDS ORDERED: VANCOMYCIN 750 MG in SODIUM CHLORIDE 250 ML IVPB ONE (10:00)
[2017-10-19 10:11] VITALS: BP 119/54; PULSE 57; TEMP 98
== END 2017-10-19 11:39 | disposition home or self-care (01) ==
LOC: JINFUSION 09:46
PROVIDERS: ATTEND Internal Medicine
DX: M86.8X7 Other osteomyelitis, ankle and foot (principal)
CPT/HCPCS: 96365; 96366

== ENCOUNTER 2017-10-21 10:32 | Day surgery (SDC) | payer OTHER ==
[2017-10-21] MEDS ORDERED: VANCOMYCIN 750 MG in SODIUM CHLORIDE 250 ML IVPB ONE (10:45)
[2017-10-21 11:33] LABS: CHLORIDE 106 mmol/L (98-107); SODIUM 141 mmol/L (136-145)
[2017-10-21 11:50] LABS: ANION GAP 9 MMOL/L (8-16); BLOOD UREA NITROGEN 24 mg/dL (7-18); CALCIUM 9.7 mg/dL (8.5-10.1); CO2 26 mmol/L (21-32); CREATININE 1.4 mg/dL (0.55-1.3); GLUCOSE,RANDOM 159 mg/dL (74-106)
[2017-10-21 11:52] VITALS: BP 148/56; PULSE 51; TEMP 97.8
== END 2017-10-21 13:10 | disposition home or self-care (01) ==
LOC: JINFUSION 10:32
PROVIDERS: ATTEND Internal Medicine
DX: M86.8X7 Other osteomyelitis, ankle and foot (principal)
CPT/HCPCS: 36415; 80048; 96365; 96366; G0480

== ENCOUNTER 2017-10-22 10:36 | Day surgery (SDC) | payer OTHER ==
[2017-10-22] MEDS ORDERED: VANCOMYCIN 750 MG in SODIUM CHLORIDE 250 ML IVPB SCH (11:00)
[2017-10-22 19:11] VITALS: BP 0/0; PULSE 0; TEMP 0
== END 2017-10-22 14:00 | disposition home or self-care (01) ==
LOC: JINFUSION 10:36 → J7W 10:43 → JINFUSION 14:00
PROVIDERS: ATTEND Internal Medicine
DX: M86.8X7 Other osteomyelitis, ankle and foot (principal)
CPT/HCPCS: 96365

== ENCOUNTER 2017-10-23 09:45 | Day surgery (SDC) | payer OTHER ==
[2017-10-23] MEDS ORDERED: VANCOMYCIN 750 MG in SODIUM CHLORIDE 250 ML IVPB ONE (10:30)
[2017-10-23 11:04] VITALS: BP 153/51; PULSE 51; TEMP 97.6
== END 2017-10-23 12:30 | disposition home or self-care (01) ==
LOC: JINFUSION 09:45 → J7W 09:46 → JINFUSION 12:30
PROVIDERS: ATTEND Internal Medicine
DX: M86.8X7 Other osteomyelitis, ankle and foot (principal)
CPT/HCPCS: 96365

== ENCOUNTER 2017-10-24 08:04 | Day surgery (SDC) | payer OTHER ==
[2017-10-24] MEDS ORDERED: VANCOMYCIN 750 MG in DEXTROSE 5%-WATER - 250 ML IVPB ONE (08:45)
[2017-10-24] MEDS ORDERED: VANCOMYCIN 750 MG in SODIUM CHLORIDE 250 ML IVPB ONE (08:47)
[2017-10-24 10:43] VITALS: TEMP 97.9
[2017-10-24 11:58] VITALS: BP 131/58; PULSE 57
== END 2017-10-24 11:45 | disposition home or self-care (01) ==
LOC: JINFUSION 08:04
PROVIDERS: ATTEND Internal Medicine
DX: M86.8X7 Other osteomyelitis, ankle and foot (principal)
CPT/HCPCS: 96365

== ENCOUNTER → 2017-10-27 | Day surgery (SDC) | payer OTHER | END | disposition home or self-care (01) | LOC: JRADIR 10:08 | PROVIDERS: ATTEND Internal Medicine | PROC: 0JPT0XZ Removal of Tunneled Vascular Access Device from Trunk Subcutaneous Tissue and Fascia, Open Approach (ICD-10-PCS; principal; 2017-10-27) | DX: Z45.2 Encounter for adjustment and management of vascular access device (principal) | CPT/HCPCS: 36589 ==

== ENCOUNTER 2017-12-08 17:09 | Inpatient (IN) | payer OTHER ==
--- NOTE | 2017-12-08 17:28 | PDOC ---
History of Present Illness - General Chief Complaint: Wound Stated Complaint: WOUND - History of Present Illness Initial Comments: The patient is a 67M w/ a history of T2DM, s/p kidney transplant (tacrolimus), and CAD s/p stent who presents for evaluation of R plantar diabetic food wound. The patient states that the wound has had increasing pain and drainage over the last 2-3d. Patient endorses subjective fevers/chills, denies SANTANA, vision changes, chest pain , SOB, abdominal pain, N/V/C/D. 12/08/17 17:55 Past History - Past Medical History Allergies/Adverse Reactions: Allergies Allergy/AdvReac Type Severity Reaction Status Date / Time No Known Allergies Allergy Verified 12/08/17 17:31 Home Medications: Ambulatory Orders Amlodipine Besylate [Norvasc -] 5 mg PO DAILY 04/24/15 Clopidogrel Bisulfate [Plavix -] 75 mg PO DAILY 04/24/15 Ranitidine [Zantac -] 150 mg PO DAILY 04/24/15 Simvastatin [Zocor -] 20 mg PO HS 04/24/15 Tacrolimus [Astagraf Xl] 8 mg PO DAILY 04/24/15 Tamsulosin HCl [Flomax -] 0.4 mg PO BID 04/24/15 metFORMIN XR [Glucophage Xr -] 750 mg PO HS 04/24/15 Aspirin [ASA -] 325 mg PO DAILY 07/08/17 Azathioprine [Imuran] 150 mg PO DAILY 07/08/17 Ergocalciferol (Vitamin D2) [Vitamin D2] 50,000 unit PO MONTHLY 07/08/17 Isosorbide Mononitrate [Isosorbide Mononitrate ER] 60 mg PO DAILY 07/08/17 Nebivolol HCl [Bystolic] 20 mg PO DAILY 07/08/17 Polyethylene Glycol 3350 [Miralax 119 gm Btl -] 17 gm PO DAILY 07/08/17 Prednisone 5 mg PO DAILY 07/08/17 Sitagliptin Phosphate [Januvia] 100 mg PO DAILY 07/08/17 Sodium Bicarbonate - 2 tab PO BID 07/08/17 Insulin (Levemir) [Levemir Vial] 35 unit SQ HS #1 vial 08/07/17 Cardiac Disorders: Yes (CAD, stent) COPD: No DVT: No Diabetes: Yes Dialysis: No (kidney transplatn,lt arm fistula) GI Disorders: Yes HTN: Yes Hypercholesterolemia: Yes - Surgical History Abdominal Surgery: (hernia) Cardiac Surgery: Yes (stent placement) Orthopedic Surgery: Yes (debridement or R foot diabetic ulcer) - Suicide/Smoking/Psychosocial Hx Smoking History: Never smoked Have you smoked in the past 12 months: No Hx Alcohol Use: No Drug/Substance Use Hx: No Substance Use Type: None Hx Substance Use Treatment: No Review of Systems - Review of Systems Able to Perform ROS?: Yes Comments:: GENERAL/CONSTITUTIONAL: +fevers/chills; No weakness HEAD, EYES, EARS, NOSE AND THROAT: No change in vision. No ear pain or discharge. No sore throat CARDIOVASCULAR: No chest pain or shortness of breath RESPIRATORY: No cough, wheezing, or hemoptysis GASTROINTESTINAL: No nausea, vomiting, diarrhea or constipation GENITOURINARY: No dysuria, frequency, or change in urination MUSCULOSKELETAL: No joint or muscle swelling or pain. No neck or back pain SKIN: +R foot wound NEUROLOGIC: No headache, vertigo, loss of consciousness, or change in strength/ sensation ENDOCRINE: No increased thirst. No abnormal weight change HEMATOLOGIC/LYMPHATIC: No anemia, easy bleeding, or history of blood clots ALLERGIC/IMMUNOLOGIC: No hives or skin allergy 12/08/17 17:58 Is the patient limited Danish proficient: No *Physical Exam - Vital Signs Vital Signs Temp Pulse Resp BP Pulse Ox 100.5 F H 70 20 156/61 100 12/08/17 17:26 12/08/17 17:26 12/08/17 17:26 12/08/17 17:26 12/08/17 17:26 12/08/17 17:58 - Physical Exam Comments: GENERAL: Awake, alert, and fully oriented, in no acute distress HEAD: No signs of trauma, normocephalic, atraumatic EYES: PERRLA, EOMI, sclera anicteric, conjunctiva clear ENT: Hearing grossly normal, nares patent, oropharynx clear without exudates. Moist mucosa LUNGS: No distress, speaks full sentences, clear to auscultation bilaterally HEART: Regular rate and rhythm, normal S1 and S2, no murmurs, rubs or gallops, peripheral pulses normal and equal bilaterally ABDOMEN: Soft, nontender, normoactive bowel sounds. No guarding, no rebound. No masses NEUROLOGICAL: Cranial nerves II through XII grossly intact. Normal speech, normal gait, no focal sensorimotor deficits SKIN: R plantar surface diabetic wound with serous drainage and TTP; no purulent discharge 12/08/17 17:58 ED Treatment Course - LABORATORY CBC & Chemistry Diagram: 12/08/17 18:14 12/08/17 18:14 Medical Decision Making - Medical Decision Making The patient is a 67M w/ a history of 12/08/17 18:19 sepsis w/u Tacrolimus level Vanc/Zosyn 12/08/17 18:37 No leukocytosis lytes wnl Lactate 0.8 Trop I neg Patient w/ history of osteo Foot wound w/ serous drainage; area TTP Plan for admission for IV abx 12/08/17 19:26 Likely osteo Vanc/Zosyn Dispo: Admit 12/08/17 20:12 *DC/Admit/Observation/Transfer Diagnosis at time of Disposition: Diabetic peripheral vascular disease Diabetic foot ulcer Qualifiers: Diabetic foot ulcer location: midfoot Diabetes mellitus type: type 2 Laterality : right Non-pressure ulcer stage: unspecified non-pressure ulcer stage Qualified Code(s): E11.621 - Type 2 diabetes mellitus with foot ulcer - Discharge Dispostion Condition at time of disposition: Good Decision to Admit order: Yes - Referrals - Patient Instructions - Post Discharge Activity
[2017-12-08] MEDS ORDERED: ACETAMINOPHEN 325 MG TABLET (FP) PO ONE (17:30)
[2017-12-08 17:32] VITALS: BMI 26.7
[2017-12-08] MEDS ORDERED: ACETAMINOPHEN 325 MG TABLET (FP) ONE (17:45)
[2017-12-08 18:20] LABS: BASO % 0.2 % (0-2.0); EOS % 0.7 % (0-4.5); HEMATOCRIT 37.5 % (35.4-49); HEMOGLOBIN 11.8 GM/dL (11.7-16.9); LYMPH % 12.9 % (8-40); MCH 26.5 pg (25.7-33.7); MCHC 31.4 g/dl (32.0-35.9); MEAN CELL VOLUME 84.4 fl (80-96); MEAN PLT VOLUME 7.2 fl (7.5-11.1); MONO % 11.7 % (3.8-10.2); NEUT % 74.5 % (42.8-82.8); PLATELET COUNT 266 K/MM3 (134-434); RBC 4.45 M/mm3 (4.00-5.60); RDW 17.7 % (11.9-15.9); WHITE BLOOD COUNT 6.6 K/mm3 (4.0-10.0)
--- NOTE | 2017-12-08 18:26 | PDOC ---
Attending Attestation - Resident Resident Name: Misha Barnhart - ED Attending Attestation I have performed the following: I have examined & evaluated the patient, The case was reviewed & discussed with the resident, I agree w/resident's findings & plan, Exceptions are as noted - HPI HPI: 12/08/17 18:22 Mr Hawkins is a 67 yo M h/o NIDDM, ESRD s/p kidney transplant (on tacrolimus), chronic osteo on ( ) and CAD s/p stent who presents for evaluation of R plantar diabetic food wound. Foot is increasingly painful (+) fevers (+) drainage - Physicial Exam PE: 12/08/17 18:24 GENERAL: The patient is in no acute distress. LUNGS: Breath sounds equal, clear to auscultation bilaterally. No wheezes, and no crackles. HEART:Regular rate and rhythm, normal S1 and S2 without murmur, rub or gallop. ABDOMEN: Soft, nontender, normoactive bowel sounds. No guarding, no rebound. No masses palpable. EXTREMITIES: Normal range of motion, no edema. No clubbing or cyanosis. No erythema, or tenderness. NEUROLOGICAL: Cranial nerves II through XII grossly intact. Normal speech. No focal neurological deficits. MUSCULOSKELETAL: Back non-tender to palpation, no CVA tenderness SKIN: Warm, Dry, normal turgor, no rashes or lesions noted. - Medical Decision Making 12/08/17 18:25 67 yo M immunosuppressed, also h/o DM now with Diabetic foot ulcer/osteo Low grade fever Will do Labs Xray IVF Abx - Vanc/Zosyn 12/08/17 18:27 12/08/17 18:30 EKG: NSR rate of 69 bpm, axis nml, no st elevation or depression, twaves upright Signed out pending labs, xray Admit
[2017-12-08 18:28] LABS: VENOUS PH 7.39 (7.32-7.42)
[2017-12-08 18:29] LABS: VENOUS PC02 44.2 mmHg (38-52); VENOUS PO2 61.7 mmHg (28-48)
[2017-12-08] MEDS ORDERED: PIPERACILLIN/TAZOB 3.375 GM 3.375 GM in DEXTROSE 5%-WATER - 50 ML IVPB ONE (18:36)
[2017-12-08 18:43] LABS: INR 0.97 (0.83-1.09); PROTHROMBIN TIME (PATIENT) 11.5 SEC (9.7-13.0)
[2017-12-08] MEDS ORDERED: VANCOMYCIN 1,000 MG in DEXTROSE 5%-WATER - 250 ML IVPB SCH (18:45)
[2017-12-08 18:46] LABS: ACTIVATED PTT 27.6 SECONDS (25.2-36.5); ALBUMIN 3.4 g/dl (3.4-5.0); ALK PHOS 72 U/L (45-117); ANION GAP 6 MMOL/L (8-16); BILIRUBIN,TOTAL 0.4 mg/dL (0.2-1); BLOOD UREA NITROGEN 27 mg/dL (7-18); CALCIUM 9.9 mg/dL (8.5-10.1); CHLORIDE 103 mmol/L (98-107); CO2 30 mmol/L (21-32); CREATININE 1.3 mg/dL (0.55-1.3); GLUCOSE,RANDOM 146 mg/dL (74-106); POTASSIUM 4.4 mmol/L (3.5-5.1); SGOT/AST 8 U/L (15-37); SGPT/ALT 11 U/L (13-61); SODIUM 139 mmol/L (136-145); TOT PROT 6.8 g/dl (6.4-8.2)
[2017-12-08] MEDS ORDERED: PIPERACILLIN/TAZOB 3.375 GM 3.375 GM/50 ML BAG IVPB ONE (18:47)
[2017-12-08] MEDS ORDERED: VANCOMYCIN 1 GRAM (PRE-DOCKED) 1,000 MG/250 ML BAG IVPB ONE (18:47)
[2017-12-08] MEDS ORDERED: SODIUM CHLORIDE 1,000 ML IV SCH (21:15)
[2017-12-08] MEDS ORDERED: ERGOCALCIFEROL (VITAMIN D2) 50,000 UNIT CAPSULE (FP) PO SCH (21:30)
--- NOTE | 2017-12-08 22:17 | HP ---
CHIEF COMPLAINT: foot ulcer HISTORY OF PRESENT ILLNESS: Patient is a 67 year old male with a history of NIDDM, ESRD s/p cadaveric kidney transplant, chronic osteo and CAD ( 06/24) who presents for a foot ulcer. Patient was recently admitted in September for oseto at the same site and was treated with five weeks of IV Vancomycin. He reports one of his wounds has healed but the other one has not. He has not seen his automatic glove former or his PCP recently. He states he has pain on and off at the site. He reports only feeling feverish today. He is able to walk, but has pain with walking. He states he has had surgery four different times on both feet at a hospital in [place], but was not able to elaborate on the surgeries. Patient reports he takes his medications. He states he checks his sugars and he sometimes has problems with them being too low. Patient denies chest pain, nausea, vomiting, or shortness of breath. Patient is prydeinig speaking and has a hard time recalling answers to many questions. Cloth [employer]inter [id number] used. ER course was notable for: (1) (2) (3) PAST MEDICAL HISTORY: NIDDM, ESRD s/p cadaveric kidney transplant, chronic osteo and CAD ( 06/24) PAST SURGICAL HISTORY: cadaveric renal transplant 2013, cardiac stent 06/2017 Family History: Allergies No Known Allergies Allergy (Verified 12/08/17 17:31) HOME MEDICATIONS: Home Medications Medication Instructions Recorded Amlodipine Besylate [Norvasc -] 5 mg PO DAILY 04/24/15 Clopidogrel Bisulfate [Plavix -] 75 mg PO DAILY 04/24/15 Ranitidine [Zantac -] 150 mg PO DAILY 04/24/15 Simvastatin [Zocor -] 20 mg PO HS 04/24/15 Tacrolimus [Astagraf Xl] 8 mg PO DAILY 04/24/15 Tamsulosin HCl [Flomax -] 0.4 mg PO BID 04/24/15 metFORMIN XR [Glucophage Xr -] 750 mg PO HS 04/24/15 Aspirin [ASA -] 325 mg PO DAILY 07/08/17 Azathioprine [Imuran] 150 mg PO DAILY 07/08/17 Ergocalciferol (Vitamin D2) 50,000 unit PO MONTHLY 07/08/17 [Vitamin D2] Isosorbide Mononitrate [Isosorbide 60 mg PO DAILY 07/08/17 Mononitrate ER] Nebivolol HCl [Bystolic] 20 mg PO DAILY 07/08/17 Polyethylene Glycol 3350 [Miralax 17 gm PO DAILY 07/08/17 119 gm Btl -] Prednisone 5 mg PO DAILY 07/08/17 Sitagliptin Phosphate [Januvia] 100 mg PO DAILY 07/08/17 Sodium Bicarbonate - 2 tab PO BID 07/08/17 Insulin (Levemir) [Levemir Vial] 35 unit SQ HS #1 vial 08/07/17 REVIEW OF SYSTEMS CONSTITUTIONAL: Absent: fever, chills, diaphoresis, generalized weakness, malaise, loss of appetite, weight change HEENT: Absent: rhinorrhea, nasal congestion, throat pain, throat swelling, difficulty swallowing, mouth swelling, ear pain, eye pain, visual changes CARDIOVASCULAR: Absent: chest pain, syncope, palpitations, irregular heart rate, lightheadedness , peripheral edema RESPIRATORY: Absent: cough, shortness of breath, dyspnea with exertion, orthopnea, wheezing, stridor, hemoptysis GASTROINTESTINAL: Absent: abdominal pain, abdominal distension, nausea, vomiting, diarrhea, constipation, melena, hematochezia GENITOURINARY: Absent: dysuria, frequency, urgency, hesitancy, hematuria, flank pain, genital pain MUSCULOSKELETAL: right foot pain Absent: myalgia, arthralgia, joint swelling, back pain, neck pain SKIN: Absent: rash, itching, pallor HEMATOLOGIC/IMMUNOLOGIC: Absent: easy bleeding, easy bruising, lymphadenopathy, frequent infections ENDOCRINE: Absent: unexplained weight gain, unexplained weight loss, heat intolerance, cold intolerance NEUROLOGIC: Absent: headache, focal weakness or paresthesias, dizziness, unsteady gait, seizure, mental status changes, bladder or bowel incontinence PSYCHIATRIC: Absent: anxiety, depression, suicidal or homicidal ideation, hallucinations. PHYSICAL EXAMINATION Vital Signs - 24 hr 12/08/17 12/08/17 17:26 19:52 Temperature 100.5 F H 99.4 F Pulse Rate 70 Pulse Rate [ 72 Apical] Respiratory 20 18 Rate Blood Pressure 156/61 Blood Pressure 122/76 [Right Arm] O2 Sat by Pulse 100 100 Oximetry (%) GENERAL: Awake, alert, and fully oriented, in no acute distress. HEAD: Normal with no signs of trauma. EYES: Pupils equal, round and reactive to light, extraocular movements intact, sclera anicteric, conjunctiva clear. EARS, NOSE, THROAT: Moist mucous membranes. LUNGS: Breath sounds equal, clear to auscultation bilaterally. No wheezes, and no crackles. No accessory muscle use. HEART: Regular rate and rhythm, normal S1 and S2 without murmur, rub or gallop. ABDOMEN: Soft, nontender, not distended, normoactive bowel sounds, no guarding, no rebound, no masses. LOWER EXTREMITIES: 2+ pulses, warm, well-perfused. No calf tenderness. No peripheral edema. 1x1 plantar ulcer with surrounding edema, not tender to touch , no erythema, and no expressible pus PSYCHIATRIC: Cooperative. Good eye contact. Appropriate mood and affect. Laboratory Results - last 24 hr CBC, BMP 12/08/17 18:14 12/08/17 18:14 ASSESSMENT/PLAN: Patient is a 67 year old male with a history of NIDDM, ESRD s/p cadaveric kidney transplant, chronic osteo and CAD ( 06/24) who presents for a diabetic foot ulcer. #diabetic foot ulcer, h/o of osteomyelitis - Continue Vanc and Zosyn - discussed with Dr. Mclain, f/u ID consult - f/u consult for Dr. Monson, podiatry - f/u ESR, CRP - f/u venous doppler and arterial duplex for peripheral vascular disease - f/u Vanc level tomorrow, Zosyn renally dose 2.25 q8h - MRI 09/24: bone marrow edema tarsal and 2nd metatarsal, suggestive of osteo #Uncontrolled DM - last A1C in June 9.7, f/u new A1C - SS - continue patients levemir - hold po medications #ESRD s/p Renal transplant - continue tacrolimus, f/u level - continue prednisone 5mg daily - patient follows at [facility] for nephrology #CAD s/p stents - continue clopidogrel, aspirin - last echo 09/24 EF 60-65 #HTN - continue home medications Visit type - Emergency Visit Emergency Visit: Yes ED Registration Date: 12/08/17 Care time: The patient presented to the Emergency Department on the above date and was hospitalized for further evaluation of their emergent condition. - New Patient This patient is new to me today: Yes Date on this admission: 12/09/17 - Critical Care Critical Care patient: No
[2017-12-08] MEDS: INSULIN SLIDING SCALE (NOVOLOG) 1 VIAL SQ SCH (23:01)
[2017-12-08] MEDS ORDERED: INSULIN REGULAR HUMAN 100 UNITS/ML *VIAL ONE ×2 (23:05)
[2017-12-08] MEDS ORDERED: ATORVASTATIN CA 10 MG TABLET (FP) ONE (23:06)
[2017-12-08] MEDS ORDERED: HEPARIN NA (PORCINE) 5,000 UNITS/ML 1ML VIAL ONE (23:07)
[2017-12-08] MEDS ORDERED: TAMSULOSIN HCL 0.4 MG CAP ONE (23:07)
[2017-12-08] MEDS: TAMSULOSIN HCL 0.4 MG CAP PO SCH (23:23)
[2017-12-08] MEDS: ATORVASTATIN CA 10 MG TABLET (FP) PO SCH (23:24)
[2017-12-08] MEDS: HEPARIN NA (PORCINE) 5,000 UNITS/ML 1ML VIAL SQ SCH (23:24)
[2017-12-08] MEDS: INSULIN (LEVEMIR) 100 UNITS/ML UNITS SQ SCH (23:24)
--- NOTE | 2017-12-09 01:54 | PN ---
Teaching Attending Note Name of Resident: Nguyen Alberto ATTENDING PHYSICIAN STATEMENT I saw and evaluated the patient. I reviewed the resident's note and discussed the case with the resident. I agree with the resident's findings and plan as documented. SUBJECTIVE: Patient is a 67 y/o HM (Wallisian speaking) who presents to the ER with a CC of foot pain and swelling with worsening of his ulcer; he has been having pain when he ambulates. He has a history of osteomyelitis in that foot and he was on a prolonged course of Vancomycin with Dr. Mclain this summer in september. He was also having subjective fevers today. I am told by the resident that he is poor at following up; she is supposed to be his PCP in clinic but he has never showed up. He has a complex history of DM, ESRD s/p transplant currently on immunosuppression, Anemia of chronic disease, MARCUS s/p PCI, diastolic dysfunction , BPH, HTN, HLD. He does not appear septic at this juncture. His foot in the area of his ulcer appears swollen and is tender to palpation with a crusted ~ 1x2 ulcer without any purulent drainage on his foot. Resident did notify ID service. We will also consult podiatry. Will place her on the floor under the medicine service, obtain additional imaging and labs and start him on broad spectrum antibiotics. He tells me that he also had questionable other procedures done to his foot at [facility]? Will contact them and attempt to obtain old records. 10 sys ROS done and negative aside from HPI PMH and PSH per chart FH asked and noncontributory Lives at home in [place]; no EtOH abuse, poor followup in clinic OBJECTIVE: VSS, labs and imaging reviewed NAD, resting comfortably in bed, AAO RRR s1/2 no mgr Lungs CTAB with sym expansion NT ND +BS R-foot swollen around the area of the 1x1 ulcer; pain to palpation, no oozing or purulent drainage. CN2-12 grossly in tact, no FNDs XR foot report pending; MRI ordered WBC wnl, afebrile, chemistry without uriah abberations aside from some moderate hyperglycemia Old micro results and images reviewed ASSESSMENT AND PLAN: Mr. Hawkins is a 67 y/o CM with a PMH significant for osteomyelitis for which he completed a prolonged course of abx back in april; he presents with swelling and pain in the same foot with subjective fevers; there is an ulcer that looks somewhat chronic. He doesn't appear septic but he is at high risk for OM or deep tissue infections given his history. Will admit to the medicine service consulting ID and Podiatry; cover with broad spectrum abx and obtaining additional labs and imaging. 1) Right Foot Pain and swelling with history of OM -High risk for OM; worsening of his baseline foot appearance and increased pain and difficulty walking. Swelling worse with persistent ulcer as described in objective. He had known OM on MRI at his September admission and completed 5 weeks of IV vanco; MRI at that time showed BM edema to the tarsal bases with probably osteo of the anterior calcaneus and possible osteo at the base of 5th toe. -R/O OM; consulting ID and podiatry. Cover with broad spectrum abx overnight as risk for resistent organisms then defer further coverage to specialist. Check MRI and compare to prior study. Check and trend ESR and CRP. Monitor for WBC and fevers. Check duplex LE to r/o PAD. Followup blood cultures; no drainage from wound so would be difficult to obtain any wound cx. 2) ESRD s/p cadaveric renal transplant ([facility], 2014) -Continue home transplant meds without any changes; consulting nephrology to monitor when he is inpaitent. 3) CAD s/p PCI -Nonacute with no new sx; stents were placed within 12 months per old records. -Continue home meds without changes 4) DM -Hold PO antihyperglycemics and place on SSI when inpatient. 5) Diastolic Dysfunction -No CHF; monitor fluid status carefully 6) History of Anemia of Chronic Disease -Monitor CBC; XF if <8 7) BPH -Continue flomax 8) HLD -Continue home meds Full Code Consulting Services: ID, Podiatry, Nephrology. Thank you to the consultants for their help in the ongoing care of this patient.
[2017-12-09] MEDS ORDERED: PIPERACILLIN/TAZOB 2.25 GM 2.25 GM in DEXTROSE 5%-WATER - 50 ML IVPB SCH (02:00)
[2017-12-09] MEDS: PIPERACILLIN/TAZOB 2.25 GM 2.25 GM in DEXTROSE 5%-WATER - 50 ML IVPB SCH ×3 (02:10→18:54)
[2017-12-09] MEDS ORDERED: PIPERACILLIN/TAZOB 2.25 GM 2.25 GM/50 ML BAG IVPB ONE ×2 (04:29→10:28)
[2017-12-09 06:37] LABS: HEMATOCRIT 36.9 % (35.4-49); HEMOGLOBIN 11.7 GM/dL (11.7-16.9); MCH 26.4 pg (25.7-33.7); MCHC 31.6 g/dl (32.0-35.9); MEAN CELL VOLUME 83.5 fl (80-96); MEAN PLT VOLUME 7.3 fl (7.5-11.1); PLATELET COUNT 232 K/MM3 (134-434); RBC 4.43 M/mm3 (4.00-5.60); WHITE BLOOD COUNT 5.5 K/mm3 (4.0-10.0)
[2017-12-09] MEDS: INSULIN SLIDING SCALE (NOVOLOG) 1 VIAL SQ SCH ×4 (06:41→22:00)
[2017-12-09] MEDS: HEPARIN NA (PORCINE) 5,000 UNITS/ML 1ML VIAL SQ SCH ×3 (06:42→22:00)
[2017-12-09 07:16] LABS: ALK PHOS 69 U/L (45-117); ANION GAP 7 MMOL/L (8-16); BILIRUBIN,TOTAL 0.4 mg/dL (0.2-1); BLOOD UREA NITROGEN 24 mg/dL (7-18); CALCIUM 9.6 mg/dL (8.5-10.1); CHLORIDE 104 mmol/L (98-107); CO2 28 mmol/L (21-32); CREATININE 1.2 mg/dL (0.55-1.3); GLUCOSE,RANDOM 64 mg/dL (74-106); POTASSIUM 4.3 mmol/L (3.5-5.1); SGOT/AST 10 U/L (15-37); SGPT/ALT 9 U/L (13-61); SODIUM 139 mmol/L (136-145); TOT PROT 6.4 g/dl (6.4-8.2)
[2017-12-09] MEDS ORDERED: DEXTROSE 50%-WATER - 25 GM/50 ML VIAL IVPUSH ONE (07:27)
[2017-12-09] MEDS ORDERED: DEXTROSE 50%-WATER 25 GM/50 ML DISP.SYRIN ONE (09:09)
[2017-12-09] MEDS ORDERED: PT OWN MED DRAWER 7, Y5N ONE ×2 (09:09→19:35)
[2017-12-09] MEDS: TAMSULOSIN HCL 0.4 MG CAP PO SCH ×2 (09:23→22:00)
[2017-12-09] MEDS ORDERED: TACROLIMUS ANHYDROUS PO SCH (10:00)
[2017-12-09] MEDS ORDERED: TACROLIMUS PO SCH (10:00)
[2017-12-09] MEDS: ASPIRIN 325 MG TABLET PO SCH (10:23)
[2017-12-09] MEDS: NEBIVOLOL 10 MG TABLET (FP) PO SCH (10:24)
[2017-12-09] MEDS: ISOSORBIDE MONONITRATE 60 MG TAB.SR.24H (FP) PO SCH (10:24)
[2017-12-09] MEDS: azaTHIOprine 50 MG TABLET PO SCH (10:24)
[2017-12-09] MEDS: predniSONE 5 MG TABLET (UD) PO SCH (10:24)
[2017-12-09] MEDS: amLODIPine BESYLATE 5 MG TABLET (FP) PO SCH (10:25)
[2017-12-09] MEDS: RANITIDINE HCL 150 MG TABLET (FP) PO SCH (10:26)
[2017-12-09] MEDS ORDERED: CLOPIDOGREL BISULFATE 75 MG TABLET (FP) ONE (10:27)
[2017-12-09] MEDS: CLOPIDOGREL BISULFATE 75 MG TABLET (FP) PO SCH (10:29)
--- NOTE | 2017-12-09 10:50 | EKG ---
Test Reason : Blood Pressure : / mmHG Vent. Rate : 069 BPM Atrial Rate : 069 BPM P-R Int : 166 ms QRS Dur : 090 ms QT Int : 382 ms P-R-T Axes : 060 -29 062 degrees QTc Int : 409 ms NORMAL SINUS RHYTHM NONSPECIFIC T WAVE ABNORMALITY ABNORMAL ECG WHEN COMPARED WITH ECG OF 12-OCT-2017 10:36, NONSPECIFIC T WAVE ABNORMALITY NOW EVIDENT IN LATERAL LEADS Confirmed by ALFRED JETT MD [id number]) on 12/09/2017 10:49:35 AM Referred By: Confirmed By:ALFRED JETT MD
--- NOTE | 2017-12-09 12:51 | CONSULT ---
Consult Consult Specialty:: Podiatry Reason for Consultation:: Draining wound right foot - History of Present Illness Chief Complaint: Charcot foot with diabetic wound. - History Source History Provided By: Patient Limitations to Obtaining History: Other (does not speak beninese well) - Past Medical History Cardio/Vascular: Yes: HTN Renal/: Yes: Renal Failure, Other (Renal transplant) Endocrine: Yes: Diabetes Mellitus - Alcohol/Substance Use Hx Alcohol Use: No - Smoking History Smoking history: Never smoked Have you smoked in the past 12 months: No Home Medications - Allergies Allergies/Adverse Reactions: Allergies Allergy/AdvReac Type Severity Reaction Status Date / Time No Known Allergies Allergy Verified 12/08/17 17:31 - Home Medications Home Medications: Ambulatory Orders Amlodipine Besylate [Norvasc -] 5 mg PO DAILY 04/24/15 Clopidogrel Bisulfate [Plavix -] 75 mg PO DAILY 04/24/15 Ranitidine [Zantac -] 150 mg PO DAILY 04/24/15 Simvastatin [Zocor -] 20 mg PO HS 04/24/15 Tacrolimus [Astagraf Xl] 9 mg PO DAILY 04/24/15 Tamsulosin HCl [Flomax -] 0.4 mg PO BID 04/24/15 metFORMIN XR [Glucophage Xr -] 750 mg PO BID 04/24/15 Aspirin [ASA -] 325 mg PO DAILY 07/08/17 Azathioprine [Imuran] 150 mg PO DAILY 07/08/17 Ergocalciferol (Vitamin D2) [Vitamin D2] 50,000 unit PO MONTHLY 07/08/17 Isosorbide Mononitrate [Isosorbide Mononitrate ER] 60 mg PO DAILY 07/08/17 Nebivolol HCl [Bystolic] 20 mg PO DAILY 07/08/17 Polyethylene Glycol 3350 [Miralax 119 gm Btl -] 17 gm PO DAILY 07/08/17 Prednisone 5 mg PO DAILY 07/08/17 Sitagliptin Phosphate [Januvia] 100 mg PO DAILY 07/08/17 Sodium Bicarbonate - 2 tab PO BID 07/08/17 Insulin (Levemir) [Levemir Vial] 35 unit SQ HS #1 vial 08/07/17 Cinacalcet HCl [Sensipar -] 30 mg PO DAILY 12/09/17 metFORMIN XR [Glucophage Xr -] 750 mg PO BID 12/09/17 Review of Systems - Review of Systems Musculoskeletal: reports: Other (charcot foot with diabetic wound right with drainage, +localized cellulitis, -mal odor, +neuropathy) Physical Exam Vital Signs: Vital Signs Temperature 98.2 F 12/09/17 02:30 Pulse Rate 69 12/09/17 02:30 Respiratory Rate 18 12/09/17 02:30 Blood Pressure 126/74 12/09/17 02:30 O2 Sat by Pulse Oximetry (%) 98 12/09/17 02:30 Extremities: Yes: Other (wound right foot, charcot right,) Labs: CBC, BMP 12/09/17 06:25 12/09/17 06:25 Problem List - Problems (1) Diabetic foot ulcer Assessment/Plan: charcot foot om Awaiting IVABX as per ID, Awaiting MRI, Vascular consult Dr. Patel. Niño to foot wound. Code(s): E11.621 - TYPE 2 DIABETES MELLITUS WITH FOOT ULCER; L97.509 - NON- PRESSURE CHRONIC ULCER OTH PRT UNSP FOOT W UNSP SEVERITY Qualifiers: Diabetic foot ulcer location: midfoot Diabetes mellitus type: type 2 Laterality: right Non-pressure ulcer stage: unspecified non-pressure ulcer stage Qualified Code(s): E11.621 - Type 2 diabetes mellitus with foot ulcer; L97.419 - Non-pressure chronic ulcer of right heel and midfoot with unspecified severity
[2017-12-09] MEDS ORDERED: SODIUM CHLORIDE 1,000 ML IV SCH (13:45)
--- NOTE | 2017-12-09 15:26 | PN ---
Teaching Attending Note Name of Resident: Gama Myles ATTENDING PHYSICIAN STATEMENT I saw and evaluated the patient. I reviewed the resident's note and discussed the case with the resident. I agree with the resident's findings and plan as documented. SUBJECTIVE: no fever or chills. No pain. poor historian even with the help of Dr. Robert for Albanian interpretation. Not exactly sure of his meds. OBJECTIVE: NAD CV: RRR Lungs: CTAB Ext: no edema on legs. fistula on L upper arm. R foot with plantar small but deep ulcer with expressed pus. no surrounding erythema or tenderness. DP 2+ b/l ASSESSMENT AND PLAN: 67 y/o man with h/o DM , HTN, CAD, ESRD s/p renal transplant, PVD, s/p angiogram /atherectomy/and angioplasty 08/24, chronic R foot ulcer and OM who presented with fever and draining wound on R foot 1- Infected diabetic foot ulcer: - received vanco and zosyn . Id consult pending , will contact - previous wound cx and bone cx reviewed. - xray with gas but it is at site of deep ulcer and was present on previous admission. stable - old MRi with BM edema in tarsal and 5th metatarsal bones. - MRI pending now - ? debridement vs medical management 2- Dm : - Levemir HS and SSI 3- H/o ESRD s/p renal transplant. stable renal function - will confirm meds : last admisiosn was dc on imuran, tacrulimus and prednisone - will contact his transplant [place] - IVF for now as fever. 4- PVD: A US with no stenosis. h/o angioplasty and thrombectomy - cont ASa and plavix 5- HTn 6- DVT X HLOC
--- NOTE | 2017-12-09 15:58 | CONSULT ---
Consult - text type - Consultation Consultation Note: Renal Consult for ESRD s/p DDRT This is a 67 year old gentleman with hx of ESRD s/p DDRT (2013), DM, Hypertension, PVD, LE wounds who presented with right foot wound suspected to be a diabetic foot wound or osteomylitis. Pt denies any pain in his foot. No fever or chills. Has been compliant with all his immunosuppresives at home but could not clarifiy doses. No change in urine output or pain at graft site. No SOB, CP, Abd pain. PMHx: as above Allergies: NKDA Family Hx: NC social Hx: No T/A/D ROS: as per HPI Home Medications Medication Instructions Recorded Amlodipine Besylate [Norvasc -] 5 mg PO DAILY 04/24/15 Clopidogrel Bisulfate [Plavix -] 75 mg PO DAILY 04/24/15 Ranitidine [Zantac -] 150 mg PO DAILY 04/24/15 Simvastatin [Zocor -] 20 mg PO HS 04/24/15 Tacrolimus [Astagraf Xl] 9 mg PO DAILY 04/24/15 Tamsulosin HCl [Flomax -] 0.4 mg PO BID 04/24/15 Aspirin [ASA -] 325 mg PO DAILY 07/08/17 Azathioprine [Imuran] 150 mg PO DAILY 07/08/17 Ergocalciferol (Vitamin D2) 50,000 unit PO MONTHLY 07/08/17 [Vitamin D2] Isosorbide Mononitrate [Isosorbide 60 mg PO DAILY 07/08/17 Mononitrate ER] Nebivolol HCl [Bystolic] 20 mg PO DAILY 07/08/17 Polyethylene Glycol 3350 [Miralax 17 gm PO DAILY 07/08/17 119 gm Btl -] Prednisone 5 mg PO DAILY 07/08/17 Sitagliptin Phosphate [Januvia] 100 mg PO DAILY 07/08/17 Sodium Bicarbonate - 2 tab PO BID 07/08/17 Insulin (Levemir) [Levemir Vial] 35 unit SQ HS #1 vial 08/07/17 Cinacalcet HCl [Sensipar -] 30 mg PO DAILY 12/09/17 metFORMIN XR [Glucophage Xr -] 750 mg PO BID 12/09/17 Vital Signs Temperature 98.2 F 12/09/17 02:30 Pulse Rate 69 12/09/17 02:30 Respiratory Rate 18 11/02/18 02:30 Blood Pressure 126/74 12/09/17 02:30 O2 Sat by Pulse Oximetry (%) 98 12/09/17 02:30 Intake & Output 12/06/17 12/07/17 12/08/17 12/09/17 23:59 23:59 23:59 23:59 Weight 79.832 kg NAD awake and alert neck supple, no jVD MMM RRR, No M/R cTA soft NT/ND no graft tenderness No LE edema collection/wound on right foot CBC, BMP 12/09/17 06:25 12/09/17 06:25 Current Medications Amlodipine Besylate (Norvasc -) 5 mg PO DAILY [facility] Last Admin: 12/09/17 10:25 Dose: 5 mg Aspirin (Asa -) 325 mg PO DAILY [facility] Last Admin: 12/09/17 10:23 Dose: 325 mg Atorvastatin Calcium (Lipitor -) 10 mg PO HS [facility] Last Admin: 12/08/17 23:24 Dose: 10 mg Azathioprine (Imuran -) 150 mg PO DAILY [facility] Last Admin: 12/09/17 10:24 Dose: 150 mg Clopidogrel Bisulfate (Plavix -) 75 mg PO DAILY [facility] Last Admin: 12/09/17 10:29 Dose: 75 mg Ergocalciferol (Drisdol -) 50,000 unit PO Th [facility] Last Admin: 12/08/17 21:40 Dose: 50,000 unit Heparin Sodium (Porcine) (Heparin -) 5,000 unit SQ TID [facility] Last Admin: 12/09/17 06:42 Dose: 5,000 unit Vancomycin HCl 1,000 mg/ (Dextrose) 250 mls @ 200 mls/hr IVPB Q24H [facility]; Protocol Last Admin: 12/08/17 19:53 Dose: 200 mls/hr Piperacillin Sod/Tazobactam (Sod 2.25 gm/ Dextrose) 50 mls @ 100 mls/hr IVPB Q8H-IV [facility]; Protocol Sodium Chloride (Normal Saline -) 1,000 mls @ 75 mls/hr IV ASDIR [facility] Insulin Aspart (Novolog Vial Sliding Scale -) 1 vial SQ ACHS [facility]; Protocol Last Admin: 12/09/17 12:11 Dose: 2 units Insulin Detemir (Levemir Vial) 35 units SQ HS [facility] Last Admin: 12/08/17 23:24 Dose: 35 units Isosorbide Mononitrate (Imdur -) 60 mg PO DAILY [facility] Last Admin: 12/09/17 10:24 Dose: 60 mg Nebivolol (Bystolic -) 20 mg PO DAILY [facility] Last Admin: 12/09/17 10:24 Dose: 20 mg Polyethylene Glycol (Miralax (For Daily Use) -) 17 gm PO DAILY [facility] Prednisone (Deltasone -) 5 mg PO DAILY [facility] Last Admin: 12/09/17 10:24 Dose: 5 mg Ranitidine HCl (Zantac -) 150 mg PO DAILY [facility] Last Admin: 12/09/17 10:26 Dose: 150 mg Tacrolimus (Prograf) 4 mg PO BID [facility] Tamsulosin HCl (Flomax -) 0.4 mg PO 0830,2200 [facility] Last Admin: 12/09/17 09:23 Dose: 0.4 mg 67 year old gentleman with hx of ESRD s/p DDRT (2013), DM, Hypertension , PVD, LE wounds who presented with right foot wound suspected to be a diabetic foot wound or osteomylitis #Right foot wound #ESRD s/p renal transplant #Hypertension #DM Continue Abx as per ID/Primary MRI of leg pending Tacrolimus changed to 4mg BID was on Long acting tacolimus at home which is not formulary here would continue imuran and prednione pending clarification from transplant nephrology Continue Bystolic, Imdur, and Amlodipine Wound care Thank you Will follow Price Carlton DO
--- NOTE | 2017-12-09 16:21 | CONSULT ---
- Consultation REQUESTING PROVIDER: CONSULT REQUEST: We have been asked to surgically evaluate this patient for (R foot ulcer). 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 Pt reports subjective fevers since yesterday. Has a h/o a chronic R foot ulcer. Pt is a poor historian. Reports ulcer has been present for roughly 2 years, states he does not follow with any Podiatrists or Vascular surgeons for care of the ulcer. Per EMR, patient has had multiple admissions/visits to the ED for R foot ulcers dating back to July 2017. Pt was recently admitted in September (09/09-09/19) for R foot infection/osteomyelitis. During that visit, pt was seen by ID, Dr. Mclain, and d/c'ed with 5 weeks of IV Vancomycin (renally dosed). Upon further review of EMR, pt has also been treated by Dr Momin DPM in July 2017 where he underwent R foot debridement and bone biopsy (cultures:polymicrobial), as well as R foot debridement and 5th metatarsal head resection. Pt also s/p RLE angiogram JAYSON arthrectomy and angioplasty with Dr Roque on August 01. Pt states he does not apply any medications or dressings to the ulcer. Wears a regular "tennis" shoe. Denies cp/sob, n/v/d, abdominal pain, h/o tobacco abuse. Has occasional pain with ambulation. 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 Ambulates minimally with use of walker and cane. PMHx: as stated above PSHx: Cadaveric renal transplant [id number]), RLE angiogram, arthrectomy of JAYSON, LUE AVF Home Medications Medication Instructions Recorded Amlodipine Besylate [Norvasc -] 5 mg PO DAILY 04/24/15 Clopidogrel Bisulfate [Plavix -] 75 mg PO DAILY 04/24/15 Ranitidine [Zantac -] 150 mg PO DAILY 04/24/15 Simvastatin [Zocor -] 20 mg PO HS 03/17/16 Tacrolimus [Astagraf Xl] 9 mg PO DAILY 04/24/15 Tamsulosin HCl [Flomax -] 0.4 mg PO BID 04/24/15 Aspirin [ASA -] 325 mg PO DAILY 07/08/17 Azathioprine [Imuran] 150 mg PO DAILY 07/08/17 Ergocalciferol (Vitamin D2) 50,000 unit PO MONTHLY 07/08/17 [Vitamin D2] Isosorbide Mononitrate [Isosorbide 60 mg PO DAILY 07/08/17 Mononitrate ER] Nebivolol HCl [Bystolic] 20 mg PO DAILY 07/08/17 Polyethylene Glycol 3350 [Miralax 17 gm PO DAILY 07/08/17 119 gm Btl -] Prednisone 5 mg PO DAILY 07/08/17 Sitagliptin Phosphate [Januvia] 100 mg PO DAILY 07/08/17 Sodium Bicarbonate - 2 tab PO BID 07/08/17 Insulin (Levemir) [Levemir Vial] 35 unit SQ HS #1 vial 08/07/17 Cinacalcet HCl [Sensipar -] 30 mg PO DAILY 12/09/17 metFORMIN XR [Glucophage Xr -] 750 mg PO BID 12/09/17 Allergies Allergy/AdvReac Type Severity Reaction Status Date / Time No Known Allergies Allergy Verified 12/08/17 17:31 REVIEW OF SYSTEMS: CONSTITUTIONAL: +fever, chills CARDIOVASCULAR: Absent: chest pain RESPIRATORY: Absent: cough, shortness of breath PHYSICAL EXAM: GENERAL: Awake, alert, and fully oriented, in no acute distress. HEAD: Normal with no signs of trauma. ABDOMEN: Soft, nontender, no pulsatile mass appreciated. . UPPER EXTREMITIES: LUE AVF aneurysmal with no ulcerations. +thrill. LOWER EXTREMITIES: L foot with no ulcers or deformities. R foot with charcot deformity. Approx .5cm circular ulcer on the plantar surface over the 4th-5th metatarsal with surrounding callus. Scant serous drainage expressed from ulcer. No purulent drainage or foul odor. No surrounding erythema. Minimal ttp. Vascular: Palpable femoral/popliteal b/l. B/L DP/PT (R PT above ankle) doppler signals appreciated. Vital Signs Temperature 98.2 F 12/09/17 02:30 Pulse Rate 69 12/09/17 02:30 Respiratory Rate 18 12/09/17 02:30 Blood Pressure 126/74 12/09/17 02:30 O2 Sat by Pulse Oximetry (%) 98 12/09/17 02:30 Lab Results WBC 5.5 K/mm3 (4.0-10.0) 12/09/17 06:25 RBC 4.43 M/mm3 (4.00-5.60) 12/09/17 06:25 Hgb 11.7 GM/dL (11.7-16.9) 12/09/17 06:25 Hct 36.9 % (35.4-49) 12/09/17 06:25 MCV 83.5 fl (80-96) 12/09/17 06:25 MCHC 31.6 g/dl (32.0-35.9) L 12/09/17 06:25 RDW 18.0 % (11.9-15.9) H 12/09/17 06:25 Plt Count 232 K/MM3 (134-434) 12/09/17 06:25 Sodium 139 mmol/L (136-145) 12/09/17 06:25 Potassium 4.3 mmol/L (3.5-5.1) 12/09/17 06:25 Chloride 104 mmol/L (98-107) 12/09/17 06:25 Carbon Dioxide 28 mmol/L (21-32) 12/09/17 06:25 Anion Gap 7 MMOL/L (8-16) L 12/09/17 06:25 BUN 24 mg/dL (7-18) H 12/09/17 06:25 Creatinine 1.2 mg/dL (0.55-1.3) 12/09/17 06:25 Random Glucose 64 mg/dL (74-106) L 12/09/17 06:25 Calcium 9.6 mg/dL (8.5-10.1) 12/09/17 06:25 INR 0.97 (0.83-1.09) 12/08/17 18:14 A/P: 67 y/o Tristanian speaking M w/ PMHx NIDDM, ESRD s/p cadaveric kidney transplant, 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 R foot with Charcot deformity, chronic Diabetic ulcer. Pt febrile to 100.5 in ED , no leukocytosis. Ulcer does not appear clinically infected at this time, however pt has h/o osteomyelitis. -Agree with MRI -Recommend Bacitracin to ulcer, 4x4 and kerlix changed daily -Abx per ID -Care per primary team d/w attending Dr Flores
[2017-12-09] MEDS: POLYETHYLENE GLYCOL 3350 119 GM BTL PO SCH (16:42)
--- NOTE | 2017-12-09 16:42 | PN ---
Progress Note (short form) - Note Progress Note: ID Consult dictated Infected diabetic foot ulcer R/O abscess/osteomyelitis S/P renal transplant Await c/s MRI Empiric vancomycin/ zosyn
--- NOTE | 2017-12-09 17:11 | CONS ---
DATE OF CONSULTATION: DATE OF DICTATION: 12/09/2017 HISTORY: The patient is a 67-year-old diabetic with a history of renal transplant in 2013, history of chronic, nonhealing diabetic plantar ulcer, and history of osteomyelitis now evaluated for foot infection. The patient presented to the emergency room with complaints of increased pain and swelling of the right foot for the past 2-3 days associated with subjective fever and chills. He presented to the emergency room where he was noted to have swelling of the foot and distal leg. A Doppler exam was performed and was negative for DVT. X-ray of the foot shows soft tissue swelling and chronic destructive changes involving the 5th metatarsal, which appeared unchanged from his x-ray in September. There was presence of soft tissue swelling and air in that area. Cultures were obtained. He was empirically treated with vancomycin and Zosyn. At the present time, he has no complaints of pain. He appears comfortable and nontoxic. He does not give a reliable history. He denied any purulent wound drainage or bleeding from the wound. PAST MEDICAL HISTORY: Positive for diabetes mellitus, history of renal transplant 2013 on immunosuppressive therapy, coronary artery disease, BPH, hypertension, hyperlipidemia, history of chronic, nonhealing plantar ulcer with underlying osteomyelitis. ALLERGIES: No known allergies. MEDICATIONS: Include Tacrolimus, Azathioprine, prednisone 5 mg daily, Norvasc, Plavix, Zantac, Zocor, Flomax, Glucophage, aspirin, Januvia. SOCIAL HISTORY: Lives in the community. Denies tobacco or alcohol use. SYSTEMS REVIEW: Neurologic: No loss of consciousness, seizure activity, focal weakness. Cardiac: Negative chest pain or palpitations. Respiratory: Negative cough or sputum production. Gastrointestinal: Negative vomiting or diarrhea. Genitourinary: As per HPI. LABORATORY DATA: White count 5.5, hematocrit 36.9, platelet count 232, creatinine 1.2, total bilirubin 0.4, alkaline phosphatase 69, AST 10, sedimentation rate 20, C-reactive protein 3.1, vancomycin trough 8.8. Chest x-ray negative for acute infiltrate. PHYSICAL EXAMINATION: General: He is not acutely toxic appearing. Vital Signs: Temperature 98.2, T-max 100.5, blood pressure 126/74, pulse 68 and regular, respirations 18 per minute. HEENT: Sclerae anicteric. Heart: Sounds S1, S2. Lungs: Clear bilaterally. No rales, rhonchi, or wheezing. Abdomen: Soft and nontender. Healed surgical scar. Extremities: Right foot, there is a 1-cm plantar ulcer of the area of the 3rd and 4th metatarsals midfoot. There is no surrounding erythema. No expressible pus. There is deformity of the foot consistent with a Charcot joint as well as swelling involving the lateral aspect of the foot. IMPRESSION: 1. Infected diabetic foot ulcer. 2. Rule out underlying abscess/osteomyelitis. 3. Status post renal transplant on immunosuppressive therapy. PLAN: Appreciate Podiatry evaluation. Await cultures. Obtain MRI of the foot to rule out abscess/osteomyelitis. Continue antibiotic coverage with vancomycin and Zosyn. We will follow. Thank you for the kind referral. ALFRED FITZGERALD M.D. [id number]
[2017-12-09] MEDS ORDERED: BACITRACIN 15 GM TUBE TOPICAL OINTMENT TP ONE (17:21)
[2017-12-09] MEDS ORDERED: DEXTROSE 5%-WATER - 50 ML IVPB ONE (18:25)
[2017-12-09] MEDS ORDERED: PIPERACILLIN/TAZOBACTAM 2.25 GM VIAL IVPB ONE (18:25)
[2017-12-09] MEDS ORDERED: VANCOMYCIN 1,000 MG in DEXTROSE 5%-WATER - 250 ML IVPB SCH (19:00)
[2017-12-09] MEDS: VANCOMYCIN 1 GRAM (PRE-DOCKED) 1,000 MG/250 ML BAG IVPB SCH (22:00)
[2017-12-09] MEDS: ATORVASTATIN CA 10 MG TABLET (FP) PO SCH (22:00)
[2017-12-09] MEDS: INSULIN (LEVEMIR) 100 UNITS/ML UNITS SQ SCH (23:56)
[2017-12-10] MEDS ORDERED: DEXTROSE 5%-WATER - 50 ML IVPB ONE ×3 (02:19→17:03)
[2017-12-10] MEDS ORDERED: PIPERACILLIN/TAZOBACTAM 2.25 GM VIAL IVPB ONE ×2 (02:19→08:43)
[2017-12-10] MEDS: PIPERACILLIN/TAZOB 2.25 GM 2.25 GM in DEXTROSE 5%-WATER - 50 ML IVPB SCH ×2 (02:22→10:51)
[2017-12-10] MEDS: HEPARIN NA (PORCINE) 5,000 UNITS/ML 1ML VIAL SQ SCH ×3 (06:34→21:59)
[2017-12-10] MEDS: INSULIN SLIDING SCALE (NOVOLOG) 1 VIAL SQ SCH ×4 (06:34→22:00)
[2017-12-10 08:15] LABS: BASO % 0.4 % (0-2.0); EOS % 1.7 % (0-4.5); HEMATOCRIT 34.5 % (35.4-49); HEMOGLOBIN 11.7 GM/dL (11.7-16.9); LYMPH % 25.1 % (8-40); MEAN CELL VOLUME 82.4 fl (80-96); MEAN PLT VOLUME 7.3 fl (7.5-11.1); MONO % 13.3 % (3.8-10.2); NEUT % 59.5 % (42.8-82.8); PLATELET COUNT 257 K/MM3 (134-434); RBC 4.19 M/mm3 (4.00-5.60); RDW 17.4 % (11.9-15.9); WHITE BLOOD COUNT 3.2 K/mm3 (4.0-10.0)
[2017-12-10 08:39] LABS: ANION GAP 5 MMOL/L (8-16); BLOOD UREA NITROGEN 25 mg/dL (7-18); CALCIUM 9.5 mg/dL (8.5-10.1); CHLORIDE 104 mmol/L (98-107); CO2 29 mmol/L (21-32); CREATININE 1.2 mg/dL (0.55-1.3); GLUCOSE,RANDOM 190 mg/dL (74-106); MAGNESIUM 1.9 mg/dL (1.8-2.4); PHOSPHOROUS 2.7 mg/dL (2.5-4.9); POTASSIUM 4.4 mmol/L (3.5-5.1); SODIUM 138 mmol/L (136-145)
[2017-12-10] MEDS ORDERED: PT OWN MED DRAWER 7, Y5N ONE (08:42)
--- NOTE | 2017-12-10 09:00 | PN ---
Progress Note (short form) - Note Progress Note: Renal follow up for Renal Transplant Pt seen and examined at the bedside no acute complaints no fever or chils no sob, cp Vital Signs Temperature 98.3 F 12/10/17 06:00 Pulse Rate 62 12/10/17 06:00 Respiratory Rate 20 12/10/17 06:00 Blood Pressure 143/62 12/10/17 06:00 O2 Sat by Pulse Oximetry (%) 95 12/09/17 21:00 Intake & Output 12/07/17 12/08/17 12/09/17 12/10/17 23:59 23:59 23:59 23:59 Intake Total 1305 1080 Balance 1305 1080 Weight 79.832 kg 79.832 kg NAD RRR CTa no Le edema CBC, BMP 12/10/17 06:00 12/10/17 06:00 Laboratory Tests 09/19/17 12/08/17 12/10/17 05:50 18:14 06:00 Calcium 10.3 H 9.5 Phosphorus 2.7 Magnesium 1.9 Albumin 3.0 L Tacrolimus Pending Current Medications Amlodipine Besylate (Norvasc -) 5 mg PO DAILY [facility] Last Admin: 12/09/17 10:25 Dose: 5 mg Aspirin (Asa -) 325 mg PO DAILY [facility] Last Admin: 12/09/17 10:23 Dose: 325 mg Atorvastatin Calcium (Lipitor -) 10 mg PO HS [facility] Last Admin: 12/09/17 22:00 Dose: 10 mg Azathioprine (Imuran -) 150 mg PO DAILY [facility] Last Admin: 12/09/17 10:24 Dose: 150 mg Clopidogrel Bisulfate (Plavix -) 75 mg PO DAILY [facility] Last Admin: 12/09/17 10:29 Dose: 75 mg Ergocalciferol (Drisdol -) 50,000 unit PO Th [facility] Last Admin: 12/08/17 21:40 Dose: 50,000 unit Heparin Sodium (Porcine) (Heparin -) 5,000 unit SQ TID [facility] Last Admin: 12/10/17 06:34 Dose: 5,000 unit Sodium Chloride (Normal Saline -) 1,000 mls @ 75 mls/hr IV ASDIR [facility] Last Admin: 12/09/17 13:48 Dose: 75 mls/hr Piperacillin Sod/Tazobactam (Sod 2.25 gm/ Dextrose) 50 mls @ 100 mls/hr IVPB Q8H-IV [facility]; Protocol Last Admin: 12/10/17 02:22 Dose: 100 mls/hr Vancomycin HCl (Vancomycin (Pre-Docked)) 1,000 mg in 250 mls @ 166.667 mls/hr IVPB DAILY@2000 [facility]; Protocol Last Admin: 12/09/17 22:00 Dose: 166.667 mls/hr Insulin Aspart (Novolog Vial Sliding Scale -) 1 vial SQ ACHS [facility]; Protocol Last Admin: 12/10/17 06:34 Dose: 2 units Insulin Detemir (Levemir Vial) 35 units SQ HS [facility] Last Admin: 12/09/17 23:56 Dose: 35 units Isosorbide Mononitrate (Imdur -) 60 mg PO DAILY [facility] Last Admin: 12/09/17 10:24 Dose: 60 mg Nebivolol (Bystolic -) 20 mg PO DAILY [facility] Last Admin: 12/09/17 10:24 Dose: 20 mg Polyethylene Glycol (Miralax (For Daily Use) -) 17 gm PO DAILY [facility] Last Admin: 12/09/17 16:42 Dose: Not Given Prednisone (Deltasone -) 5 mg PO DAILY [facility] Last Admin: 12/09/17 10:24 Dose: 5 mg Ranitidine HCl (Zantac -) 150 mg PO DAILY [facility] Last Admin: 12/09/17 10:26 Dose: 150 mg Tacrolimus (Prograf) 4 mg PO BID [facility] Tamsulosin HCl (Flomax -) 0.4 mg PO 0830,2200 [facility] Last Admin: 12/09/17 22:00 Dose: 0.4 mg 67 year old gentleman with hx of ESRD s/p DDRT (2013), DM, Hypertension , PVD, LE wounds who presented with right foot wound suspected to be a diabetic foot wound or osteomylitis #Right foot wound #ESRD s/p renal transplant #Hypertension #DM Continue Tacrolimus/Imuran/Prednisone Abx as per primary team Podiatry follow up supportive care trend renal function and electrolytes Price Carlton DO
[2017-12-10] MEDS: ASPIRIN 325 MG TABLET PO SCH (09:24)
[2017-12-10] MEDS: TAMSULOSIN HCL 0.4 MG CAP PO SCH ×2 (09:24→21:59)
[2017-12-10] MEDS: NEBIVOLOL 10 MG TABLET (FP) PO SCH (09:26)
[2017-12-10] MEDS: predniSONE 5 MG TABLET (UD) PO SCH (09:27)
[2017-12-10] MEDS: amLODIPine BESYLATE 5 MG TABLET (FP) PO SCH (09:30)
[2017-12-10] MEDS: ISOSORBIDE MONONITRATE 60 MG TAB.SR.24H (FP) PO SCH (09:30)
[2017-12-10] MEDS: azaTHIOprine 50 MG TABLET PO SCH (09:30)
[2017-12-10] MEDS: CLOPIDOGREL BISULFATE 75 MG TABLET (FP) PO SCH (09:30)
[2017-12-10] MEDS: RANITIDINE HCL 150 MG TABLET (FP) PO SCH (09:31)
[2017-12-10] MEDS: POLYETHYLENE GLYCOL 3350 119 GM BTL PO SCH (09:32)
[2017-12-10] MEDS ORDERED: TACROLIMUS ANHYDROUS 1 MG CAPSULE PO SCH ×2 (10:00→13:43)
--- NOTE | 2017-12-10 10:42 | PN ---
Progress Note (short form) - Note Progress Note: Patient seen in bed. States he has on and off chest pain. vss, tmax 98.3 +improved wound, -drainage today, -mal odor, mri done no results, r/o om, - cellulitis today, wbc=3.2 om? charcot foot chest pain Reviewed xray result. Advised nurse of pain in chest. Cardiology to be consulted. Continue wound care. Awaiting MRI results. will follow. Nurse advised me he does not have chest pain now but will get consult to make sure nothing is of concern. Problem List - Problems (1) Diabetic foot ulcer Code(s): E11.621 - TYPE 2 DIABETES MELLITUS WITH FOOT ULCER; L97.509 - NON- PRESSURE CHRONIC ULCER OTH PRT UNSP FOOT W UNSP SEVERITY Qualifiers: Diabetic foot ulcer location: midfoot Diabetes mellitus type: type 2 Laterality: right Non-pressure ulcer stage: unspecified non-pressure ulcer stage Qualified Code(s): E11.621 - Type 2 diabetes mellitus with foot ulcer; L97.419 - Non-pressure chronic ulcer of right heel and midfoot with unspecified severity
--- NOTE | 2017-12-10 13:32 | PN ---
Progress Note (short form) - Note Progress Note: nad Vital Signs Period Temp Pulse Resp BP Sys/Oliveira Pulse Ox Last 24 Hr 97.4 F-98.3 F 61-76 16-20 132-170/54-73 95 small draining sinus plantar aspect of the left foot, no erythema CBC, BMP 12/10/17 06:00 12/10/17 06:00 Laboratory Tests 12/09/17 12/09/17 06:25 06:25 ESR 20 C-Reactive Protein 3.1 H Microbiology 12/08/17 18:16 Blood - Peripheral Venous Blood Culture - Preliminary NO GROWTH OBTAINED AFTER 24 HOURS, INCUBATION TO CONTINUE FOR 4 DAYS. 12/08/17 18:14 Blood - Peripheral Venous Blood Culture - Preliminary NO GROWTH OBTAINED AFTER 24 HOURS, INCUBATION TO CONTINUE FOR 4 DAYS. a/p r/o osteo renal transplant- immunocompromised host MRI pending cultures pending continue vanco/zosyn
[2017-12-10] MEDS ORDERED: TACROLIMUS ANHYDROUS PO SCH (14:00)
--- NOTE | 2017-12-10 15:14 | PN ---
Teaching Attending Note Name of Resident: Yehuda Robert ATTENDING PHYSICIAN STATEMENT I saw and evaluated the patient. I reviewed the resident's note and discussed the case with the resident. I agree with the resident's findings and plan as documented. SUBJECTIVE: No fever or chills. No pain . no events over night Cp was reported in podiatry note OBJECTIVE: NAD CV: RRR Lungs: CTAB Ext: no edema on legs. fistula on L upper arm. R foot with plantar small but deep ulcer. pus was not expressed today. no surrounding erythema or tenderness. DP 2+ b/l ASSESSMENT AND PLAN: 67 y/o man with h/o DM , HTN, CAD, ESRD s/p renal transplant, PVD, s/p angiogram /atherectomy/and angioplasty 08/24, chronic R foot ulcer and OM who presented with fever and draining wound on R foot 1- Infected diabetic foot ulcer: - cont Abx - vanco trough tomorrow evening - wound cx pending -MRI read pending - d/w Dr. Vargas 2- DM: - Levemir HS and SSI 3- H/o ESRD s/p renal transplant. stable renal function - meds confirmed: imuran, tacrulimus and prednisone. - looks euvolemic . no more fever . dc IVF 4- PVD: Arterial US with no stenosis. h/o angioplasty and thrombectomy - cont ASA and plavix 5- HTN: cont meds 6- CP per podiatry note. will ask patient further and obtain EKG and trop 7- DVT X HLOC
--- NOTE | 2017-12-10 16:18 | PN ---
Physical Exam: SUBJECTIVE: Patient seen and examined at bedside. No complaints. Pt had tape overlying wound with Fer cap stuck under tape. OBJECTIVE: Vital Signs Period Temp Pulse Resp BP Sys/Oliveira Pulse Ox Last 24 Hr 97.4 F-98.4 F 61-76 16-20 132-172/54-73 95 Gen: NAD, in bed HEENT: NCAT, EOMI, poor dentition Neck: supple, no jvd Cardiac: rrr, normal s1s2 Pulm: cta b/l abd: soft nontender, nondistended Ext: R foot ulcer Laboratory Results - last 24 hr 12/09/17 12/10/17 12/10/17 23:58 06:00 06:00 WBC 3.2 L RBC 4.19 Hgb 11.7 Hct 34.5 L MCV 82.4 MCH 28.0 MCHC 34.0 RDW 17.4 H Plt Count 257 MPV 7.3 L Absolute Neuts (auto) 1.9 Neutrophils % 59.5 D Lymphocytes % 25.1 D Monocytes % 13.3 H Eosinophils % 1.7 D Basophils % 0.4 Nucleated RBC % 0 Sodium Potassium Chloride Carbon Dioxide Anion Gap BUN Creatinine Creat Clearance w eGFR POC Glucometer 253 Random Glucose Calcium Phosphorus Magnesium Random Vancomycin 4.3 L 12/10/17 12/10/17 06:00 06:32 WBC RBC Hgb Hct MCV MCH MCHC RDW Plt Count MPV Absolute Neuts (auto) Neutrophils % Lymphocytes % Monocytes % Eosinophils % Basophils % Nucleated RBC % Sodium 138 Potassium 4.4 Chloride 104 Carbon Dioxide 29 Anion Gap 5 L BUN 25 H Creatinine 1.2 Creat Clearance w eGFR > 60 POC Glucometer 191 Random Glucose 190 H Calcium 9.5 Phosphorus 2.7 Magnesium 1.9 Random Vancomycin Active Medications Generic Name Dose Route Start Last Admin Trade Name Freq PRN Reason Stop Dose Admin Amlodipine Besylate 5 mg 12/09/17 10:00 12/10/17 09:30 Norvasc - PO 5 mg DAILY [facility] Administration Aspirin 325 mg 12/09/17 10:00 12/10/17 09:24 Asa - PO 325 mg DAILY [facility] Administration Atorvastatin Calcium 10 mg 12/08/17 22:00 12/09/17 22:00 Lipitor - PO 10 mg HS [facility] Administration Azathioprine 150 mg 12/09/17 10:00 12/10/17 09:30 Imuran - PO 150 mg DAILY [facility] Administration Clopidogrel Bisulfate 75 mg 12/09/17 10:00 12/10/17 09:30 Plavix - PO 75 mg DAILY [facility] Administration Ergocalciferol 50,000 unit 12/08/17 21:30 12/08/17 21:40 Drisdol - PO 50,000 unit Th [facility] Administration Heparin Sodium (Porcine) 5,000 unit 12/08/17 22:00 12/10/17 06:34 Heparin - SQ 5,000 unit TID [facility] Administration Vancomycin HCl 1,000 mg in 250 mls @ 166.667 mls/hr 12/09/17 20:00 12/09/17 22:00 Vancomycin (Pre-Docked) IVPB 166.667 mls/hr DAILY@2000 [facility] Administration Protocol Piperacillin Sod/Tazobactam 50 mls @ 100 mls/hr 12/10/17 18:00 Sod 3.375 gm/ Dextrose IVPB Q8H-IV [facility] Protocol Insulin Aspart 1 vial 12/08/17 22:00 12/10/17 06:34 Novolog Vial Sliding Scale - SQ 2 units ACHS [facility] Administration Protocol Insulin Detemir 35 units 12/08/17 22:00 12/09/17 23:56 Levemir Vial SQ 35 units HS [facility] Administration Isosorbide Mononitrate 60 mg 12/09/17 10:00 12/10/17 09:30 Imdur - PO 60 mg DAILY [facility] Administration Nebivolol 20 mg 12/09/17 10:00 12/10/17 09:26 Bystolic - PO 20 mg DAILY [facility] Administration Polyethylene Glycol 17 gm 12/09/17 10:00 12/10/17 09:32 Miralax (For Daily Use) - PO Not Given DAILY [facility] Prednisone 5 mg 12/09/17 10:00 12/10/17 09:27 Deltasone - PO 5 mg DAILY [facility] Administration Ranitidine HCl 150 mg 12/09/17 10:00 12/10/17 09:31 Zantac - PO 150 mg DAILY [facility] Administration Tacrolimus 4 mg/ Tacrolimus 0. 4.5 mg 12/10/17 22:00 5 mg PO BID [facility] Tamsulosin HCl 0.4 mg 12/08/17 22:00 12/10/17 09:24 Flomax - PO 0.4 mg 0830,2200 [facility] Administration ASSESSMENT/PLAN: Pt is a 67 y/o M with PMH NIDDM, ESRD s/p cadaveric kidney transplant, chronic osteo and CAD (06/24) who presented for a foot ulcer. #DM foot ulcer -h/o OM -Vanc, Zosyn -MRI pending official read -Wound Cx pending -ID on board -Podiatry on board #NIDDM -ISS -Levemir 35 #Renal transplant -on Tacrolimus -call placed to pharmacy. Tacrolimus dose was changed to 9 of the long-acting on 10/24/2017. Will make dose 4.5 BID, short acting starting this evening and order level tomorrow prior to am dose. D/w Dr. Carlton -Bibi - #CAD -on ASA & Plavix -CP noted by podiatry. Will f/u with EKG, trop -Lipitor -Imdur #PVD -prior stent -U/S showing no stenosis -ASA & Plavix #HTN -Norvasc -Bystolic #FEN -not on fluids -lytes wnl -DM/Na diet #PPx -hep #Dispo -medsurg Yehuda Robert MD PGY-2 IM Visit type - Emergency Visit Emergency Visit: No - New Patient This patient is new to me today: No - Critical Care Critical Care patient: No
[2017-12-10] MEDS ORDERED: PIPERACILLIN/TAZOBACTAM 3.375 GM VIAL IVPB ONE (17:03)
[2017-12-10] MEDS: PIPERACILLIN/TAZOB 3.375 GM 3.375 GM in DEXTROSE 5%-WATER - 50 ML IVPB SCH (17:07)
[2017-12-10] MEDS: VANCOMYCIN 1 GRAM (PRE-DOCKED) 1,000 MG/250 ML BAG IVPB SCH (20:22)
[2017-12-10] MEDS ORDERED: INSULIN (NOVOLOG) ASPART 100 UNITS/ML 10ML VIAL ONE (21:02)
[2017-12-10] MEDS: INSULIN (LEVEMIR) 100 UNITS/ML UNITS SQ SCH (21:59)
[2017-12-10] MEDS: ATORVASTATIN CA 10 MG TABLET (FP) PO SCH (22:02)
[2017-12-10] MEDS: TACROLIMUS ANHYDROUS PO SCH (22:19)
[2017-12-11] MEDS ORDERED: DEXTROSE 5%-WATER - 50 ML IVPB ONE ×3 (01:38→17:31)
[2017-12-11] MEDS ORDERED: PIPERACILLIN/TAZOBACTAM 3.375 GM VIAL IVPB ONE ×3 (01:38→17:31)
[2017-12-11] MEDS: PIPERACILLIN/TAZOB 3.375 GM 3.375 GM in DEXTROSE 5%-WATER - 50 ML IVPB SCH ×3 (02:23→17:33)
[2017-12-11] MEDS: HEPARIN NA (PORCINE) 5,000 UNITS/ML 1ML VIAL SQ SCH ×3 (06:13→22:07)
[2017-12-11] MEDS: INSULIN SLIDING SCALE (NOVOLOG) 1 VIAL SQ SCH ×4 (06:14→22:08)
[2017-12-11] MEDS: NEBIVOLOL 10 MG TABLET (FP) PO SCH (10:50)
[2017-12-11] MEDS: ASPIRIN 325 MG TABLET PO SCH (10:50)
[2017-12-11] MEDS: TAMSULOSIN HCL 0.4 MG CAP PO SCH ×2 (10:50→22:07)
[2017-12-11] MEDS: RANITIDINE HCL 150 MG TABLET (FP) PO SCH (10:51)
[2017-12-11] MEDS: ISOSORBIDE MONONITRATE 60 MG TAB.SR.24H (FP) PO SCH (10:51)
[2017-12-11] MEDS: CLOPIDOGREL BISULFATE 75 MG TABLET (FP) PO SCH (10:51)
[2017-12-11] MEDS: amLODIPine BESYLATE 5 MG TABLET (FP) PO SCH (10:51)
[2017-12-11] MEDS: predniSONE 5 MG TABLET (UD) PO SCH (10:51)
[2017-12-11] MEDS: POLYETHYLENE GLYCOL 3350 119 GM BTL PO SCH (10:52)
[2017-12-11] MEDS: azaTHIOprine 50 MG TABLET PO SCH (10:52)
[2017-12-11] MEDS: TACROLIMUS ANHYDROUS PO SCH ×2 (10:53→22:32)
--- NOTE | 2017-12-11 11:44 | EKG ---
Test Reason : Blood Pressure : / mmHG Vent. Rate : 066 BPM Atrial Rate : 066 BPM P-R Int : 172 ms QRS Dur : 100 ms QT Int : 404 ms P-R-T Axes : 072 -23 042 degrees QTc Int : 423 ms NORMAL SINUS RHYTHM NORMAL ECG WHEN COMPARED WITH ECG OF 08-DEC-2017 18:22, NO SIGNIFICANT CHANGE WAS FOUND Confirmed by ALFRED JETT MD ([id number]) on 12/11/2017 11:44:14 AM Referred By: Patricia LOPEZ Confirmed By:ALFRED JETT MD
--- NOTE | 2017-12-11 14:58 | PN ---
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 no painin foot Objective: Vital Signs: Last Vital Signs Temp Pulse Resp BP Pulse Ox 98.4 F 61 20 112/45 L 95 12/11/17 14:36 12/11/17 14:36 12/11/17 14:36 12/11/17 14:36 12/09/17 21:00 Laboratory Results - last 24 hr 12/08/17 12/10/17 12/10/17 18:14 16:25 16:47 POC Glucometer 254 Troponin I < 0.02 Random Vancomycin Vancomycin Pre-Dose Tacrolimus 4.1 12/10/17 12/10/17 12/11/17 19:40 20:42 06:12 POC Glucometer 320 98 Troponin I Random Vancomycin Vancomycin Pre-Dose 3.1 L Tacrolimus 12/11/17 12/11/17 07:00 12:02 POC Glucometer 119 Troponin I Random Vancomycin 11.8 L Vancomycin Pre-Dose Tacrolimus Physical Exam: NAD CV: RRR Lungs: CTAB Ext: no edema on legs. fistula on L upper arm. R foot with plantar small but deep ulcer. pus was not expressed today. no surrounding erythema or tenderness. DP 2+ b/l TTP over L sided chest ASSESSMENT AND PLAN: 67 y/o man with h/o DM , HTN, CAD, ESRD s/p renal transplant, PVD, s/p angiogram /atherectomy/and angioplasty 08/24, chronic R foot ulcer and OM who presented with fever and draining wound on R foot 1- Infected diabetic foot ulcer with evidenc eof OM in cuboid and calcaneus bones wound cx with lactose nad non lactose fermenting G- organisms and group D strep. follow final wound cx podiatry plan for OM cont current Abx Id f/u 2- DM: - Levemir HS and SSI 3- H/o ESRD s/p renal transplant. stable renal function - cont tx meds 4- PVD: - cont ASA and plavix 5- HTN: cont meds 6- L sided chest tenderness.MS in etiology. no chest ain per patient yesterday. EKG reviewed. No further w/u needed 7- DVT X HLOC Visit type - Emergency Visit Emergency Visit: Yes ED Registration Date: 12/08/17 Care time: The patient presented to the Emergency Department on the above date and was hospitalized for further evaluation of their emergent condition. - New Patient This patient is new to me today: No - Critical Care Critical Care patient: No
[2017-12-11] MEDS ORDERED: INSULIN (NOVOLOG) ASPART 100 UNITS/ML 10ML VIAL ONE (17:18)
[2017-12-11] MEDS: VANCOMYCIN 1 GRAM (PRE-DOCKED) 1,000 MG/250 ML BAG IVPB SCH (22:07)
[2017-12-11] MEDS: INSULIN (LEVEMIR) 100 UNITS/ML UNITS SQ SCH (22:08)
[2017-12-11] MEDS: ATORVASTATIN CA 10 MG TABLET (FP) PO SCH (22:08)
[2017-12-12] MEDS ORDERED: DEXTROSE 5%-WATER - 50 ML IVPB ONE ×3 (00:33→16:35)
[2017-12-12] MEDS ORDERED: PIPERACILLIN/TAZOBACTAM 3.375 GM VIAL IVPB ONE ×3 (00:33→16:35)
[2017-12-12] MEDS: PIPERACILLIN/TAZOB 3.375 GM 3.375 GM in DEXTROSE 5%-WATER - 50 ML IVPB SCH ×3 (01:14→17:00)
[2017-12-12] MEDS: INSULIN SLIDING SCALE (NOVOLOG) 1 VIAL SQ SCH ×4 (06:15→21:57)
[2017-12-12] MEDS: HEPARIN NA (PORCINE) 5,000 UNITS/ML 1ML VIAL SQ SCH ×3 (06:15→21:52)
[2017-12-12 07:12] LABS: BASO % 0.5 % (0-2.0); HEMATOCRIT 33.6 % (35.4-49); HEMOGLOBIN 11.6 GM/dL (11.7-16.9); LYMPH % 29.8 % (8-40); MCH 28.4 pg (25.7-33.7); MCHC 34.5 g/dl (32.0-35.9); MEAN CELL VOLUME 82.5 fl (80-96); MEAN PLT VOLUME 6.9 fl (7.5-11.1); MONO % 12.4 % (3.8-10.2); NEUT % 55.3 % (42.8-82.8); PLATELET COUNT 280 K/MM3 (134-434); RBC 4.08 M/mm3 (4.00-5.60); RDW 17.4 % (11.9-15.9); WHITE BLOOD COUNT 3.4 K/mm3 (4.0-10.0)
[2017-12-12 07:25] LABS: ANION GAP 6 MMOL/L (8-16); BLOOD UREA NITROGEN 22 mg/dL (7-18); CALCIUM 9.4 mg/dL (8.5-10.1); CHLORIDE 106 mmol/L (98-107); CO2 26 mmol/L (21-32); CREATININE 1.4 mg/dL (0.55-1.3); GLUCOSE,RANDOM 188 mg/dL (74-106); POTASSIUM 4.8 mmol/L (3.5-5.1); SODIUM 138 mmol/L (136-145)
[2017-12-12] MEDS ORDERED: PT OWN MED DRAWER 7, Y5N ONE ×3 (08:55→19:28)
[2017-12-12] MEDS: ISOSORBIDE MONONITRATE 60 MG TAB.SR.24H (FP) PO SCH (09:04)
[2017-12-12] MEDS: CLOPIDOGREL BISULFATE 75 MG TABLET (FP) PO SCH (09:04)
[2017-12-12] MEDS: TAMSULOSIN HCL 0.4 MG CAP PO SCH ×2 (09:04→21:52)
[2017-12-12] MEDS: ASPIRIN 325 MG TABLET PO SCH (09:05)
[2017-12-12] MEDS: amLODIPine BESYLATE 5 MG TABLET (FP) PO SCH (09:05)
[2017-12-12] MEDS: predniSONE 5 MG TABLET (UD) PO SCH (09:05)
[2017-12-12] MEDS: azaTHIOprine 50 MG TABLET PO SCH (09:06)
[2017-12-12] MEDS: TACROLIMUS ANHYDROUS PO SCH ×2 (09:06→21:53)
[2017-12-12] MEDS: RANITIDINE HCL 150 MG TABLET (FP) PO SCH (09:08)
[2017-12-12] MEDS: NEBIVOLOL 10 MG TABLET (FP) PO SCH (09:08)
[2017-12-12] MEDS: SODIUM CHLORIDE 1,000 ML IV SCH (09:09)
[2017-12-12] MEDS: POLYETHYLENE GLYCOL 3350 119 GM BTL PO SCH (09:22)
--- NOTE | 2017-12-12 11:25 | PN ---
Progress Note (short form) - Note Progress Note: Renal follow up for Renal Transplant Pt seen and examined at the bedside no acute complaints has fullness on in the RLQ no N/V/D Vital Signs Temperature 97.8 F 12/12/17 10:00 Pulse Rate 55 L 12/12/17 10:00 Respiratory Rate 17 12/12/17 10:00 Blood Pressure 153/65 12/12/17 10:00 O2 Sat by Pulse Oximetry (%) 96 12/11/17 21:00 Intake & Output 12/10/17 12/11/17 12/11/17 12/12/17 00:59 00:59 23:59 23:59 Intake Total 400 Output Total 800 Balance -400 Weight CBC, BMP 12/12/17 06:15 12/12/17 06:15 Current Medications Amlodipine Besylate (Norvasc -) 5 mg PO DAILY [facility] Last Admin: 12/12/17 09:05 Dose: 5 mg Aspirin (Asa -) 325 mg PO DAILY [facility] Last Admin: 12/12/17 09:05 Dose: 325 mg Atorvastatin Calcium (Lipitor -) 10 mg PO HS [facility] Last Admin: 12/11/17 22:08 Dose: 10 mg Azathioprine (Imuran -) 150 mg PO DAILY [facility] Last Admin: 12/12/17 09:06 Dose: 150 mg Clopidogrel Bisulfate (Plavix -) 75 mg PO DAILY [facility] Last Admin: 12/12/17 09:04 Dose: 75 mg Ergocalciferol (Drisdol -) 50,000 unit PO Th [facility] Last Admin: 12/08/17 21:40 Dose: 50,000 unit Heparin Sodium (Porcine) (Heparin -) 5,000 unit SQ TID [facility] Last Admin: 12/12/17 06:15 Dose: 5,000 unit Vancomycin HCl (Vancomycin (Pre-Docked)) 1,000 mg in 250 mls @ 166.667 mls/hr IVPB DAILY@1999 [facility]; Protocol Last Admin: 12/11/17 22:07 Dose: 166.667 mls/hr Piperacillin Sod/Tazobactam (Sod 3.375 gm/ Dextrose) 50 mls @ 100 mls/hr IVPB Q8H-IV [facility]; Protocol Last Admin: 12/12/17 09:08 Dose: 100 mls/hr Sodium Chloride (Normal Saline -) 1,000 mls @ 100 mls/hr IV ASDIR [facility] Last Admin: 12/12/17 09:09 Dose: 100 mls/hr Insulin Aspart (Novolog Vial Sliding Scale -) 1 vial SQ ACHS [facility]; Protocol Last Admin: 12/12/17 06:15 Dose: 2 units Insulin Detemir (Levemir Vial) 35 units SQ HS [facility] Last Admin: 12/11/17 22:08 Dose: 35 units Isosorbide Mononitrate (Imdur -) 60 mg PO DAILY [facility] Last Admin: 12/12/17 09:04 Dose: 60 mg Nebivolol (Bystolic -) 20 mg PO DAILY [facility] Last Admin: 12/12/17 09:08 Dose: 20 mg Polyethylene Glycol (Miralax (For Daily Use) -) 17 gm PO DAILY [facility] Last Admin: 12/12/17 09:22 Dose: 17 gm Prednisone (Deltasone -) 5 mg PO DAILY [facility] Last Admin: 12/12/17 09:05 Dose: 5 mg Ranitidine HCl (Zantac -) 150 mg PO DAILY [facility] Last Admin: 12/12/17 09:08 Dose: 150 mg Tacrolimus 4 mg/ Tacrolimus 0. (5 mg) 4.5 mg PO BID [facility] Last Admin: 12/12/17 09:06 Dose: 4.5 mg Tamsulosin HCl (Flomax -) 0.4 mg PO 0830,2200 [facility] Last Admin: 12/12/17 09:04 Dose: 0.4 mg 67 year old gentleman with hx of ESRD s/p DDRT (2013), DM, Hypertension , PVD, LE wounds who presented with right foot wound suspected to be a diabetic foot wound or osteomylitis #Right foot wound #ESRD s/p renal transplant #Hypertension #DM Renal function essentialy stable Trend renal funtion and electrolytes continue present immunosuppresive meds f/u tacrolimus levels continue abx but trend vanco levels Price Carlton DO
[2017-12-12] MEDS ORDERED: INSULIN (NOVOLOG) ASPART 100 UNITS/ML 10ML VIAL ONE (12:14)
--- NOTE | 2017-12-12 12:26 | PN ---
Progress Note (short form) - Note Progress Note: Patient seen in bed. vss, tmax 98 +improved wound, -drainage today, -mal odor, mri om, -cellulitis today, wbc= 3.4 om charcot foot Continue wound care. will follow. IVABX and wound care. No plan for surgical intervention. will follow till dc. Continue Santyl. Problem List - Problems (1) Diabetic foot ulcer Code(s): E11.621 - TYPE 2 DIABETES MELLITUS WITH FOOT ULCER; L97.509 - NON- PRESSURE CHRONIC ULCER OTH PRT UNSP FOOT W UNSP SEVERITY Qualifiers: Diabetic foot ulcer location: midfoot Diabetes mellitus type: type 2 Laterality: right Non-pressure ulcer stage: unspecified non-pressure ulcer stage Qualified Code(s): E11.621 - Type 2 diabetes mellitus with foot ulcer; L97.419 - Non-pressure chronic ulcer of right heel and midfoot with unspecified severity
--- NOTE | 2017-12-12 15:31 | PN ---
Physical Exam: SUBJECTIVE: Patient seen and examined. No acute events, no chills, no nausea. Pt. endorses good urine output. Pt. denies any pain at this time. OBJECTIVE: Vital Signs Period Temp Pulse Resp BP Sys/Oliveira Pulse Ox Last 24 Hr 97.4 F-98.7 F 54-65 17-18 136-162/55-65 96 GENERAL: The patient is awake, alert, and fully oriented, in no acute distress. EYES: PERRL, extraocular movements intact, sclera anicteric, conjunctiva clear. No ptosis. ENT: Ears normal, nares patent, oropharynx clear without exudates, moist mucous membranes. NECK: Trachea midline, full range of motion, supple. LUNGS: Breath sounds equal, clear to auscultation bilaterally, no wheezes, no crackles, no accessory muscle use. HEART: Regular rate and rhythm, S1, S2 without murmur ABDOMEN: Soft, nontender, nondistended, bowel sounds sluggish, no guarding, no rebound EXTREMITIES: 1+ posterior tibial pulses b/l, warm, no edema, c/d/i. NEUROLOGICAL: Normal speech, gait not observed. PSYCH: Normal mood, normal affect. SKIN: Warm, dry, normal turgor, no rashes or lesions noted Laboratory Results - last 24 hr 12/11/17 12/11/17 12/12/17 17:12 22:05 05:58 WBC RBC Hgb Hct MCV MCH MCHC RDW Plt Count MPV Absolute Neuts (auto) Neutrophils % Lymphocytes % Monocytes % Eosinophils % Basophils % Nucleated RBC % Sodium Potassium Chloride Carbon Dioxide Anion Gap BUN Creatinine Creat Clearance w eGFR POC Glucometer 300 268 191 Random Glucose Calcium Random Vancomycin 12/12/17 12/12/17 12/12/17 06:00 06:15 06:15 WBC 3.4 L RBC 4.08 Hgb 11.6 L Hct 33.6 L MCV 82.5 MCH 28.4 MCHC 34.5 RDW 17.4 H Plt Count 280 MPV 6.9 L Absolute Neuts (auto) 1.9 Neutrophils % 55.3 Lymphocytes % 29.8 Monocytes % 12.4 H Eosinophils % 2.0 Basophils % 0.5 Nucleated RBC % 0 Sodium 138 Potassium 4.8 Chloride 106 Carbon Dioxide 26 Anion Gap 6 L BUN 22 H Creatinine 1.4 H Creat Clearance w eGFR 50.55 POC Glucometer Random Glucose 188 H Calcium 9.4 Random Vancomycin 16.8 L 12/12/17 11:36 WBC RBC Hgb Hct MCV MCH MCHC RDW Plt Count MPV Absolute Neuts (auto) Neutrophils % Lymphocytes % Monocytes % Eosinophils % Basophils % Nucleated RBC % Sodium Potassium Chloride Carbon Dioxide Anion Gap BUN Creatinine Creat Clearance w eGFR POC Glucometer 230 Random Glucose Calcium Random Vancomycin Active Medications Current Medications Amlodipine Besylate (Norvasc -) 5 mg PO DAILY [facility] Last Admin: 12/12/17 09:05 Dose: 5 mg Aspirin (Asa -) 325 mg PO DAILY [facility] Last Admin: 12/12/17 09:05 Dose: 325 mg Atorvastatin Calcium (Lipitor -) 10 mg PO HS [facility] Last Admin: 12/11/17 22:08 Dose: 10 mg Azathioprine (Imuran -) 150 mg PO DAILY [facility] Last Admin: 12/12/17 09:06 Dose: 150 mg Clopidogrel Bisulfate (Plavix -) 75 mg PO DAILY [facility] Last Admin: 12/12/17 09:04 Dose: 75 mg Ergocalciferol (Drisdol -) 50,000 unit PO Th [facility] Last Admin: 12/08/17 21:40 Dose: 50,000 unit Heparin Sodium (Porcine) (Heparin -) 5,000 unit SQ TID [facility] Last Admin: 12/12/17 15:54 Dose: 5,000 unit Vancomycin HCl (Vancomycin (Pre-Docked)) 1,000 mg in 250 mls @ 166.667 mls/hr IVPB DAILY@2000 [facility]; Protocol Last Admin: 12/11/17 22:07 Dose: 166.667 mls/hr Piperacillin Sod/Tazobactam (Sod 3.375 gm/ Dextrose) 50 mls @ 100 mls/hr IVPB Q8H-IV [facility]; Protocol Last Admin: 12/12/17 17:00 Dose: 100 mls/hr Sodium Chloride (Normal Saline -) 1,000 mls @ 100 mls/hr IV ASDIR [facility] Last Admin: 12/12/17 09:09 Dose: 100 mls/hr Insulin Aspart (Novolog Vial Sliding Scale -) 1 vial SQ [facility]; Protocol Last Admin: 12/12/17 16:58 Dose: 6 units Insulin Detemir (Levemir Vial) 35 units SQ [facility] Last Admin: 12/11/17 22:08 Dose: 35 units Isosorbide Mononitrate (Imdur -) 60 mg PO DAILY [facility] Last Admin: 12/12/17 09:04 Dose: 60 mg Nebivolol (Bystolic -) 20 mg PO DAILY [facility] Last Admin: 12/12/17 09:08 Dose: 20 mg Polyethylene Glycol (Miralax (For Daily Use) -) 17 gm PO DAILY [facility] Last Admin: 12/12/17 09:22 Dose: 17 gm Prednisone (Deltasone -) 5 mg PO DAILY [facility] Last Admin: 12/12/17 09:05 Dose: 5 mg Ranitidine HCl (Zantac -) 150 mg PO DAILY [facility] Last Admin: 12/12/17 09:08 Dose: 150 mg Tacrolimus 4 mg/ Tacrolimus 0. (5 mg) 4.5 mg PO BID [facility] Last Admin: 12/12/17 09:06 Dose: 4.5 mg Tamsulosin HCl (Flomax -) 0.4 mg PO 0830,2200 [facility] Last Admin: 12/12/17 09:04 Dose: 0.4 mg Home Medications Medication Instructions Recorded Amlodipine Besylate [Norvasc -] 5 mg PO DAILY 04/24/15 Clopidogrel Bisulfate [Plavix -] 75 mg PO DAILY 04/24/15 Ranitidine [Zantac -] 150 mg PO DAILY 04/24/15 Simvastatin [Zocor -] 20 mg PO HS 04/24/15 Tacrolimus [Astagraf Xl] 9 mg PO DAILY 04/24/15 Tamsulosin HCl [Flomax -] 0.4 mg PO BID 04/24/15 Aspirin [ASA -] 325 mg PO DAILY 07/08/17 Azathioprine [Imuran] 150 mg PO DAILY 07/08/17 Ergocalciferol (Vitamin D2) 50,000 unit PO MONTHLY 07/08/17 [Vitamin D2] Isosorbide Mononitrate [Isosorbide 60 mg PO DAILY 07/08/17 Mononitrate ER] Nebivolol HCl [Bystolic] 20 mg PO DAILY 07/08/17 Polyethylene Glycol 3350 [Miralax 17 gm PO DAILY 07/08/17 119 gm Btl -] Prednisone 5 mg PO DAILY 07/08/17 Sitagliptin Phosphate [Januvia] 100 mg PO DAILY 07/08/17 Sodium Bicarbonate - 2 tab PO BID 07/08/17 Insulin (Levemir) [Levemir Vial] 35 unit SQ HS #1 vial 08/07/17 Cinacalcet HCl [Sensipar -] 30 mg PO DAILY 12/09/17 metFORMIN XR [Glucophage Xr -] 750 mg PO BID 12/09/17 ASSESSMENT/PLAN: Pt. is a 67 y.o. M with PMHx. of NIDDM, ESRD s/p cadaveric kidney transplant, chronic OM and CAD (06/24) who presented for a foot ulcer. #Infectious Disease -Foot ulcer 2/2 Diabetes h/o OM c/w Vancomycin and Zosyn f/u Vanco Trough @ 9:30pm f/u Daily Random Vanc level as Pt. is ESRD will need daily assessment to ensure adequate treatment and prevent supra-therapeutic levels MRI shows OM Wound Cx growing MRSA, E.coli, Enterobacter, Enterococcus and Yeast f/u sensitivities ID on board f/u recommendations Podiatry on board f/u recommendations #Endocrine -NIDDM ISS Levemir 35 units HgBA1c: 9.3% #Nephrology -s/p Renal transplant c/w Tacrolimus 4.5mg BID c/w Imuran 150mg c/w Prednisone 5mg monitor Eosinophils as this will indicate AIN; currently wnl f/u Eosinophil studies (Smear and Urine) #Cardiology -CAD c/w ASA 325mg & Plavix 75mg c/w Imdur EKG: NSR; Trop - x 2 -HLD c/w Lipitor 10mg -PVD prior stent LE Duplex: shows no stenosis c/w ASA & Plavix -HTN c/w Norvasc 5 mg c/w Bystolic 20 mg #F/E/N -c/w NS @ 100ml/hr -monitor electrolytes, replete as needed -DM/Na Diet #DVT PPx. -Hep SQ Visit type - Emergency Visit Emergency Visit: Yes ED Registration Date: 12/08/17 Care time: The patient presented to the Emergency Department on the above date and was hospitalized for further evaluation of their emergent condition. - New Patient This patient is new to me today: No - Critical Care Critical Care patient: No - Discharge Referral Referred to [facility] Med P.C.: No
--- NOTE | 2017-12-12 16:50 | PN ---
Teaching Attending Note Name of Resident: Gama Myles ATTENDING PHYSICIAN STATEMENT I saw and evaluated the patient. I reviewed the resident's note and discussed the case with the resident. I agree with the resident's findings and plan as documented. SUBJECTIVE: No fever or chills. no pain . NO SOB OBJECTIVE: NAD CV: RRR Lungs: CTAB Ext: no edema on legs. fistula on L upper arm. R foot with plantar small but deep ulcer. pus was not expressed today. no surrounding erythema or tenderness. DP 2+ b/l TTP over L sided chest ASSESSMENT AND PLAN: 67 y/o man with h/o DM , HTN, CAD, ESRD s/p renal transplant, PVD, s/p angiogram /atherectomy/and angioplasty 08/24, chronic R foot ulcer and OM who presented with fever and draining wound on R foot 1- Infected diabetic foot ulcer with OM in cuboid and calcaneus bones wound cx noted , all organisms covered with current Abx . yeast is unlikely of significance podiatry input still pending for today: debridment vs Abx cont current Abx check vanco trough this evening 2- GERALDINE : ? volume depletion . r/o AIN - start IVF - check UA and eosinophils in urine and serum - vanco trough - follow tacrulimus level 3- H/o ESRD s/p renal transplant. stable renal function - cont tx meds 4- DM: - Levemir HS and SSI PVD: 5- PVD: cont ASA and plavix 6- HTN: cont meds 7- DVT X HLOC
[2017-12-12 18:18] LABS: URINE APPEARANCE CLEAR; URINE BILIRUBIN NEGATIVE (<2.0 mg/dL); URINE COLOR LTYELLOW; URINE GLUCOSE (UA) 3+ (NEGATIVE); URINE KETONE NEGATIVE (NEGATIVE); URINE LEUK ESTERASE NEGATIVE (NEGATIVE); URINE NITRITE NEGATIVE (NEGATIVE); URINE PROTEIN NEGATIVE (NEGATIVE); URINE UROBILINOGEN NEGATIVE mg/dL (0.2-1.0)
[2017-12-12] MEDS: VANCOMYCIN 1 GRAM (PRE-DOCKED) 1,000 MG/250 ML BAG IVPB SCH (21:09)
[2017-12-12] MEDS: ATORVASTATIN CA 10 MG TABLET (FP) PO SCH (21:52)
[2017-12-12] MEDS: INSULIN (LEVEMIR) 100 UNITS/ML UNITS SQ SCH (21:52)
[2017-12-13] MEDS ORDERED: DEXTROSE 5%-WATER - 50 ML IVPB ONE ×3 (01:10→16:22)
[2017-12-13] MEDS ORDERED: PIPERACILLIN/TAZOBACTAM 3.375 GM VIAL IVPB ONE ×3 (01:10→16:22)
[2017-12-13] MEDS: PIPERACILLIN/TAZOB 3.375 GM 3.375 GM in DEXTROSE 5%-WATER - 50 ML IVPB SCH ×3 (01:24→17:05)
[2017-12-13] MEDS: SODIUM CHLORIDE 1,000 ML IV SCH ×3 (01:25→13:33)
[2017-12-13] MEDS: INSULIN SLIDING SCALE (NOVOLOG) 1 VIAL SQ SCH ×4 (06:13→22:55)
[2017-12-13] MEDS: HEPARIN NA (PORCINE) 5,000 UNITS/ML 1ML VIAL SQ SCH ×3 (06:14→22:55)
[2017-12-13 07:19] LABS: BASO % 0.4 % (0-2.0); EOS % 1.7 % (0-4.5); HEMATOCRIT 33.9 % (35.4-49); HEMOGLOBIN 10.9 GM/dL (11.7-16.9); LYMPH % 33.5 % (8-40); MCH 26.5 pg (25.7-33.7); MCHC 32.1 g/dl (32.0-35.9); MEAN CELL VOLUME 82.7 fl (80-96); MEAN PLT VOLUME 6.9 fl (7.5-11.1); MONO % 12.2 % (3.8-10.2); NEUT % 52.2 % (42.8-82.8); PLATELET COUNT 271 K/MM3 (134-434); RDW 17.5 % (11.9-15.9); WHITE BLOOD COUNT 3.4 K/mm3 (4.0-10.0)
[2017-12-13 07:32] LABS: ANION GAP 5 MMOL/L (8-16); BLOOD UREA NITROGEN 20 mg/dL (7-18); CALCIUM 9.3 mg/dL (8.5-10.1); CHLORIDE 112 mmol/L (98-107); CO2 25 mmol/L (21-32); CREATININE 1.2 mg/dL (0.55-1.3); GLUCOSE,RANDOM 88 mg/dL (74-106); MAGNESIUM 1.7 mg/dL (1.8-2.4); PHOSPHOROUS 2.9 mg/dL (2.5-4.9); POTASSIUM 4.4 mmol/L (3.5-5.1); SODIUM 142 mmol/L (136-145)
--- NOTE | 2017-12-13 08:09 | PN ---
Physical Exam: SUBJECTIVE: Patient seen and examined. No acute events overnight. P. denies any complaints at this time. Pt. denies fever, denies pain anywhere, shortness of breath, chill or increased numbness of extremities. OBJECTIVE: Vital Signs Period Temp Pulse Resp BP Sys/O[place]ira Pulse Ox Last 24 Hr 97.8 F-98.4 F 55-58 17-19 144-153/56-91 97 GENERAL: The patient is awake, alert, and fully oriented, in no acute distress. EYES: sclera anicteric, conjunctiva clear. No ptosis. ENT: Ears normal, nares patent, oropharynx clear without exudates, moist mucous membranes. LUNGS: Breath sounds equal, clear to auscultation bilaterally, no wheezes, no crackles, no accessory muscle use. HEART: Regular rate and rhythm, S1, S2 ABDOMEN: Soft, nontender, nondistended, normoactive bowel sounds, no guarding, no rebound,right sided abdominal surgical scar-well healed EXTREMITIES: 1+ posterior tibial pulses, right plantar wound-c/d/i, warm, well- perfused, no edema, no erythema. NEUROLOGICAL: Normal speech, gait not observed. PSYCH: Normal mood, normal affect. SKIN: Warm, dry, xerotic and flaky on lower extremities. Laboratory Results - last 24 hr 12/12/17 12/12/17 12/12/17 06:15 11:36 16:00 WBC 3.4 L RBC 4.08 Hgb 11.6 L Hct 33.6 L MCV 82.5 MCH 28.4 MCHC 34.5 RDW 17.4 H Plt Count 280 MPV 6.9 L Absolute Neuts (auto) 1.9 Neutrophils % 55.3 Lymphocytes % 29.8 Monocytes % 12.4 H Eosinophils % 2.0 Basophils % 0.5 Nucleated RBC % 0 Sodium Potassium Chloride Carbon Dioxide Anion Gap BUN Creatinine Creat Clearance w eGFR POC Glucometer 230 Random Glucose Calcium Phosphorus Magnesium Urine Color Ltyellow Urine Appearance Clear Urine pH 6.0 Ur Specific [place] 1.007 L Urine Protein Negative Urine Glucose (UA) 3+ H Urine Ketones Negative Urine Blood Negative Urine Nitrite Negative Urine Bilirubin Negative Urine Urobilinogen Negative Ur Leukocyte Esterase Negative Vancomycin Pre-Dose 12/12/17 12/12/17 12/13/17 16:40 21:54 06:10 WBC RBC Hgb Hct MCV MCH MCHC RDW Plt Count MPV Absolute Neuts (auto) Neutrophils % Lymphocytes % Monocytes % Eosinophils % Basophils % Nucleated RBC % Sodium Potassium Chloride Carbon Dioxide Anion Gap BUN Creatinine Creat Clearance w eGFR POC Glucometer 274 256 Random Glucose Calcium Phosphorus Magnesium Urine Color Urine Appearance Urine pH Ur Specific [place] Urine Protein Urine Glucose (UA) Urine Ketones Urine Blood Urine Nitrite Urine Bilirubin Urine Urobilinogen Ur Leukocyte Esterase Vancomycin Pre-Dose 17.0 L 12/13/17 12/13/17 12/13/17 06:10 06:10 06:11 WBC 3.4 L RBC 4.10 Hgb 10.9 L Hct 33.9 L MCV 82.7 MCH 26.5 MCHC 32.1 RDW 17.5 H Plt Count 271 MPV 6.9 L Absolute Neuts (auto) 1.8 Neutrophils % 52.2 Lymphocytes % 33.5 Monocytes % 12.2 H Eosinophils % 1.7 Basophils % 0.4 Nucleated RBC % 0 Sodium 142 Potassium 4.4 Chloride 112 H Carbon Dioxide 25 Anion Gap 5 L BUN 20 H Creatinine 1.2 Creat Clearance w eGFR > 60 POC Glucometer 94 Random Glucose 88 Calcium 9.3 Phosphorus 2.9 Magnesium 1.7 L Urine Color Urine Appearance Urine pH Ur Specific [place] Urine Protein Urine Glucose (UA) Urine Ketones Urine Blood Urine Nitrite Urine Bilirubin Urine Urobilinogen Ur Leukocyte Esterase Vancomycin Pre-Dose Active Medications Current Medications Amlodipine Besylate (Norvasc -) 5 mg PO DAILY [facility] Last Admin: 12/12/17 09:05 Dose: 5 mg Aspirin (Asa -) 325 mg PO DAILY [facility] Last Admin: 12/12/17 09:05 Dose: 325 mg Atorvastatin Calcium (Lipitor -) 10 mg PO HS [facility] Last Admin: 12/12/17 21:52 Dose: 10 mg Azathioprine (Imuran -) 150 mg PO DAILY [facility] Last Admin: 12/12/17 09:06 Dose: 150 mg Clopidogrel Bisulfate (Plavix -) 75 mg PO DAILY [facility] Last Admin: 12/12/17 09:04 Dose: 75 mg Ergocalciferol (Drisdol -) 50,000 unit PO Th [facility] Last Admin: 12/08/17 21:40 Dose: 50,000 unit Heparin Sodium (Porcine) (Heparin -) 5,000 unit SQ TID [facility] Last Admin: 12/13/17 06:14 Dose: 5,000 unit Vancomycin HCl (Vancomycin (Pre-Docked)) 1,000 mg in 250 mls @ 166.667 mls/hr IVPB DAILY@2000 [facility]; Protocol Last Admin: 12/12/17 21:09 Dose: 166.667 mls/hr Piperacillin Sod/Tazobactam (Sod 3.375 gm/ Dextrose) 50 mls @ 100 mls/hr IVPB Q8H-IV [facility]; Protocol Last Admin: 12/13/17 01:24 Dose: 100 mls/hr Sodium Chloride (Normal Saline -) 1,000 mls @ 100 mls/hr IV ASDIR [facility] Last Admin: 12/13/17 01:25 Dose: 100 mls/hr Insulin Aspart (Novolog Vial Sliding Scale -) 1 vial SQ ACHS [facility]; Protocol Last Admin: 12/13/17 06:13 Dose: Not Given Insulin Detemir (Levemir Vial) 35 units SQ HS [facility] Last Admin: 12/12/17 21:52 Dose: 35 units Isosorbide Mononitrate (Imdur -) 60 mg PO DAILY [facility] Last Admin: 12/12/17 09:04 Dose: 60 mg Nebivolol (Bystolic -) 20 mg PO DAILY [facility] Last Admin: 12/12/17 09:08 Dose: 20 mg Polyethylene Glycol (Miralax (For Daily Use) -) 17 gm PO DAILY [facility] Last Admin: 12/12/17 09:22 Dose: 17 gm Prednisone (Deltasone -) 5 mg PO DAILY [facility] Last Admin: 12/12/17 09:05 Dose: 5 mg Ranitidine HCl (Zantac -) 150 mg PO DAILY [facility] Last Admin: 12/12/17 09:08 Dose: 150 mg Tacrolimus 4 mg/ Tacrolimus 0. (5 mg) 4.5 mg PO BID [facility] Last Admin: 12/12/17 21:53 Dose: 4.5 mg Tamsulosin HCl (Flomax -) 0.4 mg PO 0830,2200 [facility] Last Admin: 12/12/17 21:52 Dose: 0.4 mg Home Medications Medication Instructions Recorded Amlodipine Besylate [Norvasc -] 5 mg PO DAILY 04/24/15 Clopidogrel Bisulfate [Plavix -] 75 mg PO DAILY 04/24/15 Ranitidine [Zantac -] 150 mg PO DAILY 04/24/15 Simvastatin [Zocor -] 20 mg PO HS 04/24/15 Tacrolimus [Astagraf Xl] 9 mg PO DAILY 04/24/15 Tamsulosin HCl [Flomax -] 0.4 mg PO BID 04/24/15 Aspirin [ASA -] 325 mg PO DAILY 07/08/17 Azathioprine [Imuran] 150 mg PO DAILY 07/08/17 Ergocalciferol (Vitamin D2) 50,000 unit PO MONTHLY 07/08/17 [Vitamin D2] Isosorbide Mononitrate [Isosorbide 60 mg PO DAILY 07/08/17 Mononitrate ER] Nebivolol HCl [Bystolic] 20 mg PO DAILY 07/08/17 Polyethylene Glycol 3350 [Miralax 17 gm PO DAILY 07/08/17 119 gm Btl -] Prednisone 5 mg PO DAILY 07/08/17 Sitagliptin Phosphate [Januvia] 100 mg PO DAILY 07/08/17 Sodium Bicarbonate - 2 tab PO BID 07/08/17 Insulin (Levemir) [Levemir Vial] 35 unit SQ HS #1 vial 08/07/17 Cinacalcet HCl [Sensipar -] 30 mg PO DAILY 12/09/17 metFORMIN XR [Glucophage Xr -] 750 mg PO BID 12/09/17 ASSESSMENT/PLAN: Pt. is a 67 y.o. M with PMHx. of NIDDM, ESRD s/p cadaveric kidney transplant, chronic OM and CAD (06/24) who presented for a foot ulcer. #Infectious Disease -Foot ulcer 2/2 Diabetes h/o OM c/w Vancomycin and Zosyn Vanco Trough: 17.0 f/u Daily Random Vanc level as Pt. is ESRD will need daily assessment to ensure adequate treatment and prevent supra-therapeutic levels MRI shows OM Wound Cx growing MRSA, E.coli, Enterobacter, Enterococcus and Yeast Sensitive to Vancomycin and Zosyn ID (Dr. Mclain) recommends IV Vancomycin and Zosyn for 6 weeks, will f/u optimal Vanc level considering s/p renal transplant and weekly assesments. Podiatry reccomends IV Abx., hyperbaric chamber and wound care with proper foot gear and [place] walker as outpatient. #Endocrine -NIDDM ISS Levemir 35 units HgBA1c: 9.3% #Nephrology -s/p Renal transplant c/w Tacrolimus 4.5mg BID c/w Imuran 150mg c/w Prednisone 5mg monitor Eosinophils as this will indicate AIN; currently wnl f/u Eosinophil studies (Smear and Urine) -GERALDINE-resolving trend BMP, Cr. and BUN trending down c/w IVF #Cardiology -CAD c/w ASA 325mg & Plavix 75mg c/w Imdur EKG: NSR; Trop - x 2 -HLD c/w Lipitor 10mg -PVD prior stent LE Duplex: shows no stenosis c/w ASA & Plavix -HTN c/w Norvasc 5 mg c/w Bystolic 20 mg #F/E/N -c/w NS @ 100ml/hr -monitor electrolytes, replete as needed -DM/Na Diet #DVT PPx. -Hep SQ Visit type - Emergency Visit Emergency Visit: Yes ED Registration Date: 12/08/17 Care time: The patient presented to the Emergency Department on the above date and was hospitalized for further evaluation of their emergent condition. - New Patient This patient is new to me today: No - Critical Care Critical Care patient: No - Discharge Referral Referred to [facility] Med P.C.: No
[2017-12-13] MEDS ORDERED: MAGNESIUM SULF 50% (8.12 MEQ/2 ML-1 GM VIAL) IVPB ONE (09:00)
[2017-12-13] MEDS: TAMSULOSIN HCL 0.4 MG CAP PO SCH ×2 (09:28→22:56)
[2017-12-13] MEDS: RANITIDINE HCL 150 MG TABLET (FP) PO SCH (09:29)
[2017-12-13] MEDS: predniSONE 5 MG TABLET (UD) PO SCH (09:30)
[2017-12-13] MEDS: ASPIRIN 325 MG TABLET PO SCH (09:31)
[2017-12-13] MEDS: amLODIPine BESYLATE 5 MG TABLET (FP) PO SCH (09:31)
[2017-12-13] MEDS: CLOPIDOGREL BISULFATE 75 MG TABLET (FP) PO SCH (09:31)
[2017-12-13] MEDS: ISOSORBIDE MONONITRATE 60 MG TAB.SR.24H (FP) PO SCH (09:31)
[2017-12-13] MEDS: TACROLIMUS ANHYDROUS PO SCH ×2 (09:31→23:00)
[2017-12-13] MEDS: POLYETHYLENE GLYCOL 3350 119 GM BTL PO SCH (09:32)
[2017-12-13] MEDS: azaTHIOprine 50 MG TABLET PO SCH (09:33)
[2017-12-13] MEDS: NEBIVOLOL 10 MG TABLET (FP) PO SCH (09:34)
--- NOTE | 2017-12-13 11:34 | PN ---
Progress Note, Physician History of Present Illness: Awake, alert No c/o foot pain No fever/ chills Tolerating antibiotics vancomycin level noted - Current Medication List Current Medications: Active Medications Amlodipine Besylate (Norvasc -) 5 mg PO DAILY [facility] Last Admin: 12/13/17 09:31 Dose: 5 mg Aspirin (Asa -) 325 mg PO DAILY [facility] Last Admin: 12/13/17 09:31 Dose: 325 mg Atorvastatin Calcium (Lipitor -) 10 mg PO HS [facility] Last Admin: 12/12/17 21:52 Dose: 10 mg Azathioprine (Imuran -) 150 mg PO DAILY [facility] Last Admin: 12/13/17 09:33 Dose: 150 mg Clopidogrel Bisulfate (Plavix -) 75 mg PO DAILY [facility] Last Admin: 12/13/17 09:31 Dose: 75 mg Ergocalciferol (Drisdol -) 50,000 unit PO Th [facility] Last Admin: 12/08/17 21:40 Dose: 50,000 unit Heparin Sodium (Porcine) (Heparin -) 5,000 unit SQ TID [facility] Last Admin: 12/13/17 06:14 Dose: 5,000 unit Piperacillin Sod/Tazobactam (Sod 3.375 gm/ Dextrose) 50 mls @ 100 mls/hr IVPB Q8H-IV [facility]; Protocol Last Admin: 12/13/17 09:28 Dose: 100 mls/hr Sodium Chloride (Normal Saline -) 1,000 mls @ 100 mls/hr IV ASDIR [facility] Last Admin: 12/13/17 09:34 Dose: Not Given Insulin Aspart (Novolog Vial Sliding Scale -) 1 vial SQ [facility]; Protocol Last Admin: 12/13/17 06:13 Dose: Not Given Insulin Detemir (Levemir Vial) 35 units SQ [facility] Last Admin: 12/12/17 21:52 Dose: 35 units Isosorbide Mononitrate (Imdur -) 60 mg PO DAILY [facility] Last Admin: 12/13/17 09:31 Dose: 60 mg Nebivolol (Bystolic -) 20 mg PO DAILY [facility] Last Admin: 12/13/17 09:34 Dose: 20 mg Polyethylene Glycol (Miralax (For Daily Use) -) 17 gm PO DAILY [facility] Last Admin: 12/13/17 09:32 Dose: 17 gm Prednisone (Deltasone -) 5 mg PO DAILY [facility] Last Admin: 12/13/17 09:30 Dose: 5 mg Ranitidine HCl (Zantac -) 150 mg PO DAILY [facility] Last Admin: 12/13/17 09:29 Dose: 150 mg Tacrolimus 4 mg/ Tacrolimus 0. (5 mg) 4.5 mg PO BID [facility] Last Admin: 12/13/17 09:31 Dose: 4.5 mg Tamsulosin HCl (Flomax -) 0.4 mg PO 0830,2200 [facility] Last Admin: 12/13/17 09:28 Dose: 0.4 mg - Objective Vital Signs: Vital Signs Temperature 97.7 F 12/13/17 10:55 Pulse Rate 53 L 12/13/17 10:55 Respiratory Rate 17 12/13/17 10:55 Blood Pressure 129/55 L 12/13/17 10:55 O2 Sat by Pulse Oximetry (%) 97 12/12/17 21:00 Constitutional: Yes: No Distress Eyes: Yes: Conjunctiva Clear Cardiovascular: Yes: Regular Rate and Rhythm, S1, S2 Respiratory: Yes: CTA Bilaterally Gastrointestinal: Yes: Normal Bowel Sounds, Soft. No: Tenderness Extremities: Yes: Other (R foot plantar ulcer no drainage) Labs: CBC, BMP 12/13/17 06:10 12/13/17 06:10 INR, PTT INR 0.97 (0.83-1.09) 12/08/17 18:14 Assessment/Plan Infected plantar ulcer Chronic osteomyelitis S/P renal transplant Continue zosyn Hold vancomycin Will need [facility] antibiotic tx for osteo
--- NOTE | 2017-12-13 11:37 | PN ---
Progress Note (short form) - Note Progress Note: Renal follow up for Renal Transplant Pt seen and examined at the bedside no acute complaints no sob, cp, abd pain, N/V/D tolerating oral diet on IVF Vital Signs Temperature 97.7 F 12/13/17 10:55 Pulse Rate 53 L 12/13/17 10:55 Respiratory Rate 17 12/13/17 10:55 Blood Pressure 129/55 L 12/13/17 10:55 O2 Sat by Pulse Oximetry (%) 97 12/12/17 21:00 Intake & Output 12/11/17 12/11/17 12/12/17 12/13/17 00:59 23:59 23:59 23:59 Intake Total 2475 950 Output Total 800 Balance 1675 950 Weight NAD Neck supple RRR CTA no Le edema CBC, BMP 12/13/17 06:10 12/13/17 06:10 Current Medications Amlodipine Besylate (Norvasc -) 5 mg PO DAILY [facility] Last Admin: 12/13/17 09:31 Dose: 5 mg Aspirin (Asa -) 325 mg PO DAILY [facility] Last Admin: 12/13/17 09:31 Dose: 325 mg Atorvastatin Calcium (Lipitor -) 10 mg PO HS [facility] Last Admin: 12/12/17 21:52 Dose: 10 mg Azathioprine (Imuran -) 150 mg PO DAILY [facility] Last Admin: 12/13/17 09:33 Dose: 150 mg Clopidogrel Bisulfate (Plavix -) 75 mg PO DAILY [facility] Last Admin: 12/13/17 09:31 Dose: 75 mg Ergocalciferol (Drisdol -) 50,000 unit PO Th [facility] Last Admin: 12/08/17 21:40 Dose: 50,000 unit Heparin Sodium (Porcine) (Heparin -) 5,000 unit SQ TID [facility] Last Admin: 12/13/17 06:14 Dose: 5,000 unit Piperacillin Sod/Tazobactam (Sod 3.375 gm/ Dextrose) 50 mls @ 100 mls/hr IVPB Q8H-IV [facility]; Protocol Last Admin: 12/13/17 09:28 Dose: 100 mls/hr Sodium Chloride (Normal Saline -) 1,000 mls @ 100 mls/hr IV ASDIR [facility] Last Admin: 12/13/17 09:34 Dose: Not Given Insulin Aspart (Novolog Vial Sliding Scale -) 1 vial SQ ACHS [facility]; Protocol Last Admin: 12/13/17 06:13 Dose: Not Given Insulin Detemir (Levemir Vial) 35 units SQ HS [facility] Last Admin: 12/12/17 21:52 Dose: 35 units Isosorbide Mononitrate (Imdur -) 60 mg PO DAILY [facility] Last Admin: 12/13/17 09:31 Dose: 60 mg Nebivolol (Bystolic -) 20 mg PO DAILY [facility] Last Admin: 12/13/17 09:34 Dose: 20 mg Polyethylene Glycol (Miralax (For Daily Use) -) 17 gm PO DAILY [facility] Last Admin: 12/13/17 09:32 Dose: 17 gm Prednisone (Deltasone -) 5 mg PO DAILY [facility] Last Admin: 12/13/17 09:30 Dose: 5 mg Ranitidine HCl (Zantac -) 150 mg PO DAILY [facility] Last Admin: 12/13/17 09:29 Dose: 150 mg Tacrolimus 4 mg/ Tacrolimus 0. (5 mg) 4.5 mg PO BID [facility] Last Admin: 12/13/17 09:31 Dose: 4.5 mg Tamsulosin HCl (Flomax -) 0.4 mg PO 0830,2200 [facility] Last Admin: 12/13/17 09:28 Dose: 0.4 mg 67 year old gentleman with hx of ESRD s/p DDRT (2013), DM, Hypertension , PVD, LE wounds who presented with right foot wound suspected to be a diabetic foot wound or osteomylitis #Right foot wound #ESRD s/p renal transplant #Hypertension #DM Renal function stable can d/c IVF as pt is tolerating oral diet and is maintaining a normal BP continue present meds as inpatient but can resume long acting tacolimus as outpatient pt advised to follow up with transplant center regarding hernia in lower bad near transplant site continue Abx as per ID wound care follow up BP is at goal Price Carlton DO
--- NOTE | 2017-12-13 13:40 | PN ---
Teaching Attending Note Name of Resident: Gama Myles ATTENDING PHYSICIAN STATEMENT I saw and evaluated the patient. I reviewed the resident's note and discussed the case with the resident. I agree with the resident's findings and plan as documented. SUBJECTIVE: paraprofessional interpreter phone used. No fever or chills. No SOB. no foot pain , ambulating well OBJECTIVE: NAD CV: RRR Lungs: CTAB Ext: no edema on legs. R foot with plantar wound with no discharge. DP 2+ b/l ASSESSMENT AND PLAN: 67 y/o man with h/o DM , HTN, CAD, ESRD s/p renal transplant, PVD, s/p angiogram /atherectomy/and angioplasty 08/24, chronic R foot ulcer and OM who presented with fever and draining wound on R foot. 1- Infected diabetic foot ulcer with OM in cuboid and calcaneus bones vanco trough within goal cont long term acute care registered nurse abx. vanc and zosyn. will need total of 6 weeks need CRP, ESR, CMP and CBC weekly while on ABx 2- GERALDINE : resolved, was probably volume depletion - follow tacrulimus level 3- H/o ESRD s/p renal transplant. stable renal function - cont tx meds 4- DM: - Levemir HS and SSI 5- PVD: cont ASA and plavix 6- HTN: cont meds Medically ready for dc. will d/w him NH placement for Abx administration . d/w SW f/u with ID and podiatry after dc
--- NOTE | 2017-12-13 14:25 | PN ---
Progress Note (short form) - Note Progress Note: Patient seen in bed. vss, tmax 98.4 +improved wound, -drainage today, -mal odor, mri om, -cellulitis today, wbc= 3.4 om charcot foot Continue Santyl. Continue wound care. IVABX and wound care outpatient with proper shoe gear and or pauma walker. No plan for surgical intervention. will follow till dc. Problem List - Problems (1) Diabetic foot ulcer Code(s): E11.621 - TYPE 2 DIABETES MELLITUS WITH FOOT ULCER; L97.509 - NON- PRESSURE CHRONIC ULCER OTH PRT UNSP FOOT W UNSP SEVERITY Qualifiers: Diabetic foot ulcer location: midfoot Diabetes mellitus type: type 2 Laterality: right Non-pressure ulcer stage: unspecified non-pressure ulcer stage Qualified Code(s): E11.621 - Type 2 diabetes mellitus with foot ulcer; L97.419 - Non-pressure chronic ulcer of right heel and midfoot with unspecified severity
[2017-12-13] MEDS ORDERED: PT OWN MED DRAWER 7, Y5N ONE ×2 (19:52→22:58)
[2017-12-13] MEDS: INSULIN (LEVEMIR) 100 UNITS/ML UNITS SQ SCH (22:54)
[2017-12-13] MEDS: ATORVASTATIN CA 10 MG TABLET (FP) PO SCH (22:56)
[2017-12-14] MEDS ORDERED: PIPERACILLIN/TAZOBACTAM 3.375 GM VIAL IVPB ONE ×3 (02:33→16:43)
[2017-12-14] MEDS ORDERED: DEXTROSE 5%-WATER - 50 ML IVPB ONE ×3 (02:33→16:43)
[2017-12-14] MEDS: PIPERACILLIN/TAZOB 3.375 GM 3.375 GM in DEXTROSE 5%-WATER - 50 ML IVPB SCH ×3 (02:49→17:21)
[2017-12-14] MEDS ORDERED: INSULIN (NOVOLOG) ASPART 100 UNITS/ML 10ML VIAL ONE (06:18)
[2017-12-14] MEDS: INSULIN SLIDING SCALE (NOVOLOG) 1 VIAL SQ SCH ×4 (06:53→22:39)
[2017-12-14] MEDS: HEPARIN NA (PORCINE) 5,000 UNITS/ML 1ML VIAL SQ SCH ×3 (06:56→22:39)
[2017-12-14 07:26] LABS: BASO % 0.4 % (0-2.0); EOS % 1.7 % (0-4.5); HEMATOCRIT 31.3 % (35.4-49); MCH 26.8 pg (25.7-33.7); MEAN CELL VOLUME 83.8 fl (80-96); MEAN PLT VOLUME 6.8 fl (7.5-11.1); MONO % 11.7 % (3.8-10.2); NEUT % 52.2 % (42.8-82.8); PLATELET COUNT 233 K/MM3 (134-434); RBC 3.73 M/mm3 (4.00-5.60); RDW 17.2 % (11.9-15.9); WHITE BLOOD COUNT 3.2 K/mm3 (4.0-10.0)
--- NOTE | 2017-12-14 08:00 | PN ---
Teaching Attending Note Name of Resident: Gama Myles ATTENDING PHYSICIAN STATEMENT I saw and evaluated the patient. I reviewed the resident's note and discussed the case with the resident. I agree with the resident's findings and plan as documented. SUBJECTIVE: Patient is comfortable with no acute distress, No nausea or vomiting, no headache. OBJECTIVE: Vital Signs Temperature 98.5 F 12/14/17 06:00 Pulse Rate 56 L 12/14/17 06:00 Respiratory Rate 20 12/14/17 06:00 Blood Pressure 146/58 L 12/14/17 06:00 O2 Sat by Pulse Oximetry (%) 99 12/13/17 09:00 GENERAL: The patient is awake, alert, and fully oriented, in no acute distress. EYES: PERRL, extraocular movements intact, sclera anicteric, conjunctiva clear. ENT: Ears normal, oropharynx clear without exudates, moist mucous membranes. NECK: Trachea midline, full range of motion, supple. LUNGS: Breath sounds equal, clear to auscultation bilaterally, no wheezes, no crackles, no accessory muscle use. HEART: Regular rate and rhythm, S1, S2 without murmur ABDOMEN: Soft, nontender, nondistended, bowel sounds sluggish, no guarding, no rebound EXTREMITIES: 1+ posterior tibial pulses b/l, warm, no edema, c/d/i. NEUROLOGICAL: Normal speech, gait not observed. PSYCH: Normal mood, normal affect. SKIN: Warm, dry, normal turgor, no rashes or lesions noted CBCD WBC 3.2 K/mm3 (4.0-10.0) L 12/14/17 06:10 RBC 3.73 M/mm3 (4.00-5.60) L 12/14/17 06:10 Hgb 10.0 GM/dL (11.7-16.9) L 12/14/17 06:10 Hct 31.3 % (35.4-49) L 12/14/17 06:10 MCV 83.8 fl (80-96) 12/14/17 06:10 MCHC 32.0 g/dl (32.0-35.9) 12/14/17 06:10 RDW 17.2 % (11.9-15.9) H 12/14/17 06:10 Plt Count 233 K/MM3 (134-434) 12/14/17 06:10 MPV 6.8 fl (7.5-11.1) L 12/14/17 06:10 CMP Sodium 142 mmol/L (136-145) 12/13/17 06:10 Potassium 4.4 mmol/L (3.5-5.1) 12/13/17 06:10 Chloride 112 mmol/L (98-107) H 12/13/17 06:10 Carbon Dioxide 25 mmol/L (21-32) 12/13/17 06:10 Anion Gap 5 MMOL/L (8-16) L 12/13/17 06:10 BUN 20 mg/dL (7-18) H 12/13/17 06:10 Creatinine 1.2 mg/dL (0.55-1.3) 12/13/17 06:10 Creat Clearance w eGFR > 60 (>60) 12/13/17 06:10 Random Glucose 88 mg/dL (74-106) 12/13/17 06:10 Calcium 9.3 mg/dL (8.5-10.1) 12/13/17 06:10 Total Bilirubin 0.4 mg/dL (0.2-1) 12/09/17 06:25 AST 10 U/L (15-37) L 12/09/17 06:25 ALT 9 U/L (13-61) L 12/09/17 06:25 Alkaline Phosphatase 69 U/L (45-117) 12/09/17 06:25 Total Protein 6.4 g/dl (6.4-8.2) 12/09/17 06:25 Albumin 3.0 g/dl (3.4-5.0) L 12/09/17 06:25 CARDIAC ENZYMES Troponin I < 0.02 ng/ml (0.00-0.05) 12/10/17 16:25 Current Medications Generic Name Dose Route Start Last Admin Trade Name Freq PRN Reason Stop Dose Admin Amlodipine Besylate 5 mg 12/09/17 10:00 12/13/17 09:31 Norvasc - PO 5 mg DAILY [facility] Administration Aspirin 325 mg 12/09/17 10:00 12/13/17 09:31 Asa - PO 325 mg DAILY [facility] Administration Atorvastatin Calcium 10 mg 12/08/17 22:00 12/13/17 22:56 Lipitor - PO 10 mg HS [facility] Administration Azathioprine 150 mg 11/02/18 10:00 12/13/17 09:33 Imuran - PO 150 mg DAILY [facility] Administration Clopidogrel Bisulfate 75 mg 12/09/17 10:00 12/13/17 09:31 Plavix - PO 75 mg DAILY [facility] Administration Ergocalciferol 50,000 unit 12/08/17 21:30 12/08/17 21:40 Drisdol - PO 50,000 unit Th [facility] Administration Heparin Sodium (Porcine) 5,000 unit 12/08/17 22:00 12/14/17 06:56 Heparin - SQ 5,000 unit TID [facility] Administration Piperacillin Sod/Tazobactam 50 mls @ 100 mls/hr 12/10/17 18:00 12/14/17 02:49 Sod 3.375 gm/ Dextrose IVPB 100 mls/hr Q8H-IV [facility] Administration Protocol Sodium Chloride 1,000 mls @ 100 mls/hr 12/12/17 08:15 12/13/17 13:33 Normal Saline - IV 100 mls/hr ASDIR [facility] Administration Insulin Aspart 1 vial 12/08/17 22:00 12/14/17 06:53 Novolog Vial Sliding Scale - SQ Not Given ACHS [facility] Protocol Insulin Detemir 35 units 12/08/17 22:00 12/13/17 22:54 Levemir Vial SQ 35 units HS [facility] Administration Isosorbide Mononitrate 60 mg 12/09/17 10:00 12/13/17 09:31 Imdur - PO 60 mg DAILY [facility] Administration Nebivolol 20 mg 12/09/17 10:00 12/13/17 09:34 Bystolic - PO 20 mg DAILY [facility] Administration Polyethylene Glycol 17 gm 12/09/17 10:00 12/13/17 09:32 Miralax (For Daily Use) - PO 17 gm DAILY [facility] Administration Prednisone 5 mg 12/09/17 10:00 12/13/17 09:30 Deltasone - PO 5 mg DAILY [facility] Administration Ranitidine HCl 150 mg 12/09/17 10:00 12/13/17 09:29 Zantac - PO 150 mg DAILY [facility] Administration Tacrolimus 4 mg/ Tacrolimus 0. 4.5 mg 12/10/17 22:00 12/13/17 23:00 5 mg PO 4.5 mg BID [facility] Administration Tamsulosin HCl 0.4 mg 12/08/17 22:00 12/13/17 22:56 Flomax - PO 0.4 mg 0830,2200 [facility] Administration Home Medications Medication Instructions Recorded Amlodipine Besylate [Norvasc -] 5 mg PO DAILY 04/24/15 Clopidogrel Bisulfate [Plavix -] 75 mg PO DAILY 04/24/15 Ranitidine [Zantac -] 150 mg PO DAILY 04/24/15 Simvastatin [Zocor -] 20 mg PO HS 04/24/15 Tacrolimus [Astagraf Xl] 9 mg PO DAILY 04/24/15 Tamsulosin HCl [Flomax -] 0.4 mg PO BID 04/24/15 Aspirin [ASA -] 325 mg PO DAILY 07/08/17 Azathioprine [Imuran] 150 mg PO DAILY 07/08/17 Ergocalciferol (Vitamin D2) 50,000 unit PO MONTHLY 07/08/17 [Vitamin D2] Isosorbide Mononitrate [Isosorbide 60 mg PO DAILY 07/08/17 Mononitrate ER] Nebivolol HCl [Bystolic] 20 mg PO DAILY 07/08/17 Polyethylene Glycol 3350 [Miralax 17 gm PO DAILY 07/08/17 119 gm Btl -] Prednisone 5 mg PO DAILY 07/08/17 Sitagliptin Phosphate [Januvia] 100 mg PO DAILY 07/08/17 Sodium Bicarbonate - 2 tab PO BID 07/08/17 Insulin (Levemir) [Levemir Vial] 35 unit SQ HS #1 vial 08/07/17 Cinacalcet HCl [Sensipar -] 30 mg PO DAILY 12/09/17 metFORMIN XR [Glucophage Xr -] 750 mg PO BID 12/09/17 Piperacillin/Tazob 3.375 gm [Zosyn 3.375 gm IVPB Q8H-IV 42 Days #126 12/13/17 -] vial Vancomycin HCl in Dextrose 5 % 1 gm IV ASDIR 42 Days #42 12/13/17 [Vancomycin 1 Gram/250 ml-D5w] plast..bag ASSESSMENT AND PLAN: 67 y/o man with h/o DM , HTN, CAD, ESRD s/p renal transplant, PVD, s/p angiogram /atherectomy/and angioplasty 08/24, chronic R foot ulcer and OM who presented with fever and draining wound on R foot. # Infected diabetic foot ulcer with OM on Vanco and Zosyn . Vanco is on hold due to elevated vanco level. need total of 6 weeks , need CRP, ESR, CMP and CBC weekly while on ABx. patient will need Picc line for rehab. placement. # GERALDINE : resolved, was probably volume depletion , follow tacrulimus level # H/o ESRD s/p renal transplant. stable renal function, cont current meds. Tacro.level is pending. # DM: Levemir HS and SSI # PVD: cont ASA and plavix # HTN: cont meds Medically ready for dc. will d/w him NH placement for Abx administration . d/w ID and correspondence representative agree with the plan.
[2017-12-14] MEDS: SODIUM CHLORIDE 1,000 ML IV SCH ×2 (08:21→13:49)
[2017-12-14] MEDS: TAMSULOSIN HCL 0.4 MG CAP PO SCH ×2 (08:21→22:39)
[2017-12-14 08:32] LABS: ANION GAP 7 MMOL/L (8-16); BLOOD UREA NITROGEN 15 mg/dL (7-18); CALCIUM 7.7 mg/dL (8.5-10.1); CHLORIDE 117 mmol/L (98-107); CO2 20 mmol/L (21-32); CREATININE 0.9 mg/dL (0.55-1.3); GLUCOSE,RANDOM 124 mg/dL (74-106); MAGNESIUM 1.6 mg/dL (1.8-2.4); PHOSPHOROUS 2.5 mg/dL (2.5-4.9); POTASSIUM 3.6 mmol/L (3.5-5.1); SODIUM 144 mmol/L (136-145)
[2017-12-14] MEDS ORDERED: PT OWN MED DRAWER 7, Y5N ONE ×2 (09:25→22:32)
[2017-12-14] MEDS: amLODIPine BESYLATE 5 MG TABLET (FP) PO SCH (09:35)
[2017-12-14] MEDS: ASPIRIN 325 MG TABLET PO SCH (09:35)
[2017-12-14] MEDS: predniSONE 5 MG TABLET (UD) PO SCH (09:35)
[2017-12-14] MEDS: CLOPIDOGREL BISULFATE 75 MG TABLET (FP) PO SCH (09:35)
[2017-12-14] MEDS: RANITIDINE HCL 150 MG TABLET (FP) PO SCH (09:35)
[2017-12-14] MEDS: ISOSORBIDE MONONITRATE 60 MG TAB.SR.24H (FP) PO SCH (09:35)
[2017-12-14] MEDS: POLYETHYLENE GLYCOL 3350 119 GM BTL PO SCH (09:36)
[2017-12-14] MEDS: azaTHIOprine 50 MG TABLET PO SCH (09:36)
[2017-12-14] MEDS: TACROLIMUS ANHYDROUS PO SCH (09:37)
[2017-12-14] MEDS ORDERED: MAGNESIUM SULF 50% (8.12 MEQ/2 ML-1 GM VIAL) IVPB ONE (09:45)
[2017-12-14] MEDS ORDERED: PICC LINE 8 ML FLUSH PROTOCOL IVPUSH PRN (10:29)
[2017-12-14] MEDS: NEBIVOLOL 10 MG TABLET (FP) PO SCH (10:41)
--- NOTE | 2017-12-14 10:54 | PN ---
Physical Exam: SUBJECTIVE: Patient seen and examined. No acute events overnight. Pt. is very reluctant borderline adamant about going to [place]. Pt. stated "he would rather have foot chopped off than go to a custodial" because of previous negative experience and his risk of infection. Discussed with Pt. the risks associated with non-compliance including amputation and . Per further discussion with Pt. with Social Media Director, Pt. will receive a list of locations that are covered by his insurance and will discuss the best place for him pending authorizations. Pt. denies any complaints at this time. OBJECTIVE: Vital Signs Period Temp Pulse Resp BP Sys/Oliveira Pulse Ox Last 24 Hr 97.7 F-98.5 F 50-62 17-20 129-177/55-64 100 GENERAL: The patient is awake, alert, and fully oriented, in no acute distress. EYES: Sclera anicteric, conjunctiva clear. No ptosis. ENT: Ears normal, nares patent, moist mucous membranes. LUNGS: Breath sounds equal, clear to auscultation bilaterally, no wheezes, no crackles, wet-sounding cough, no accessory muscle use. HEART: Regular rate and rhythm, S1, S2 without murmur ABDOMEN: Soft, nontender, nondistended, normoactive bowel sounds, no guarding, no rebound EXTREMITIES: 1+ posterior tibial pulses, no calf tenderness, warm, well-perfused , no edema. NEUROLOGICAL: Normal speech, gait not observed. PSYCH: Delayed understanding? SKIN: Warm, dry, normal turgor Laboratory Results - last 24 hr 12/11/17 12/13/17 12/13/17 07:10 11:50 17:01 WBC RBC Hgb Hct MCV MCH MCHC RDW Plt Count MPV Absolute Neuts (auto) Neutrophils % Lymphocytes % Monocytes % Eosinophils % Basophils % Nucleated RBC % Sodium Potassium Chloride Carbon Dioxide Anion Gap BUN Creatinine Creat Clearance w eGFR POC Glucometer 154 196 Random Glucose Calcium Phosphorus Magnesium Random Vancomycin Tacrolimus 12.9 12/13/17 12/14/17 12/14/17 22:51 06:10 06:10 WBC 3.2 L RBC 3.73 L Hgb 10.0 L Hct 31.3 L MCV 83.8 MCH 26.8 MCHC 32.0 RDW 17.2 H Plt Count 233 MPV 6.8 L Absolute Neuts (auto) 1.7 Neutrophils % 52.2 Lymphocytes % 34.0 Monocytes % 11.7 H Eosinophils % 1.7 Basophils % 0.4 Nucleated RBC % 0 Sodium Potassium Chloride Carbon Dioxide Anion Gap BUN Creatinine Creat Clearance w eGFR POC Glucometer 304 Random Glucose Calcium Phosphorus Magnesium Random Vancomycin 7.3 L Tacrolimus 12/14/17 12/14/17 06:10 06:49 WBC RBC Hgb Hct MCV MCH MCHC RDW Plt Count MPV Absolute Neuts (auto) Neutrophils % Lymphocytes % Monocytes % Eosinophils % Basophils % Nucleated RBC % Sodium 144 Potassium 3.6 Chloride 117 H Carbon Dioxide 20 L Anion Gap 7 L BUN 15 Creatinine 0.9 Creat Clearance w eGFR > 60 POC Glucometer 139 Random Glucose 124 H Calcium 7.7 L Phosphorus 2.5 Magnesium 1.6 L Random Vancomycin Tacrolimus Active Medications Current Medications Amlodipine Besylate (Norvasc -) 5 mg PO DAILY [facility] Last Admin: 12/14/17 09:35 Dose: 5 mg Aspirin (Asa -) 325 mg PO DAILY [facility] Last Admin: 12/14/17 09:35 Dose: 325 mg Atorvastatin Calcium (Lipitor -) 10 mg PO HS [facility] Last Admin: 12/13/17 22:56 Dose: 10 mg Azathioprine (Imuran -) 150 mg PO DAILY [facility] Last Admin: 12/14/17 09:36 Dose: 150 mg Clopidogrel Bisulfate (Plavix -) 75 mg PO DAILY [facility] Last Admin: 12/14/17 09:35 Dose: 75 mg Ergocalciferol (Drisdol -) 50,000 unit PO Th [facility] Last Admin: 12/08/17 21:40 Dose: 50,000 unit Heparin Sodium (Porcine) (Heparin -) 5,000 unit SQ TID [facility] Last Admin: 12/14/17 06:56 Dose: 5,000 unit IV Flush (Picc Line Flush) 8 ml IVPUSH PRN PRN PRN Reason: Protocol Piperacillin Sod/Tazobactam (Sod 3.375 gm/ Dextrose) 50 mls @ 100 mls/hr IVPB Q8H-IV [facility]; Protocol Last Admin: 12/14/17 09:34 Dose: 100 mls/hr Sodium Chloride (Normal Saline -) 1,000 mls @ 100 mls/hr IV ASDIR [facility] Last Admin: 12/14/17 08:21 Dose: Not Given Insulin Aspart (Novolog Vial Sliding Scale -) 1 vial SQ ACHS [facility]; Protocol Last Admin: 12/14/17 06:53 Dose: Not Given Insulin Detemir (Levemir Vial) 35 units SQ [facility] Last Admin: 12/13/17 22:54 Dose: 35 units Isosorbide Mononitrate (Imdur -) 60 mg PO DAILY [facility] Last Admin: 12/14/17 09:35 Dose: 60 mg Nebivolol (Bystolic -) 20 mg PO DAILY [facility] Last Admin: 12/14/17 10:41 Dose: Not Given Polyethylene Glycol (Miralax (For Daily Use) -) 17 gm PO DAILY [facility] Last Admin: 12/14/17 09:36 Dose: 17 gm Prednisone (Deltasone -) 5 mg PO DAILY [facility] Last Admin: 12/14/17 09:35 Dose: 5 mg Ranitidine HCl (Zantac -) 150 mg PO DAILY [facility] Last Admin: 12/14/17 09:35 Dose: 150 mg Tacrolimus 4 mg/ Tacrolimus 0. (5 mg) 4.5 mg PO BID [facility] Last Admin: 12/14/17 09:37 Dose: 4.5 mg Tamsulosin HCl (Flomax -) 0.4 mg PO 0830,2200 [facility] Last Admin: 12/14/17 08:21 Dose: 0.4 mg Home Medications Medication Instructions Recorded Amlodipine Besylate [Norvasc -] 5 mg PO DAILY 04/24/15 Clopidogrel Bisulfate [Plavix -] 75 mg PO DAILY 04/24/15 Ranitidine [Zantac -] 150 mg PO DAILY 04/24/15 Simvastatin [Zocor -] 20 mg PO 04/24/15 Tacrolimus [Astagraf Xl] 9 mg PO DAILY 04/24/15 Tamsulosin HCl [Flomax -] 0.4 mg PO BID 04/24/15 Aspirin [ASA -] 325 mg PO DAILY 07/08/17 Azathioprine [Imuran] 150 mg PO DAILY 07/08/17 Ergocalciferol (Vitamin D2) 50,000 unit PO MONTHLY 07/08/17 [Vitamin D2] Isosorbide Mononitrate [Isosorbide 60 mg PO DAILY 07/08/17 Mononitrate ER] Nebivolol HCl [Bystolic] 20 mg PO DAILY 07/08/17 Polyethylene Glycol 3350 [Miralax 17 gm PO DAILY 07/08/17 119 gm Btl -] Prednisone 5 mg PO DAILY 07/08/17 Sitagliptin Phosphate [Januvia] 100 mg PO DAILY 07/08/17 Sodium Bicarbonate - 2 tab PO BID 07/08/17 Insulin (Levemir) [Levemir Vial] 35 unit SQ HS #1 vial 08/07/17 Cinacalcet HCl [Sensipar -] 30 mg PO DAILY 12/09/17 metFORMIN XR [Glucophage Xr -] 750 mg PO BID 12/09/17 Piperacillin/Tazob 3.375 gm [Zosyn 3.375 gm IVPB Q8H-IV 42 Days #126 12/13/17 -] vial Vancomycin HCl in Dextrose 5 % 1 gm IV ASDIR 42 Days #42 12/13/17 [Vancomycin 1 Gram/250 ml-D5w] plast..bag ASSESSMENT/PLAN: Pt. is a 67 y.o. M with PMHx. of NIDDM, ESRD s/p cadaveric kidney transplant, chronic OM and CAD (06/24) who presented for a foot ulcer. #Infectious Disease -Foot ulcer 2/2 Diabetes h/o OM c/w Vancomycin and Zosyn Random Vanc level today: 7.3 f/u Daily Random Vanc level as Pt. is ESRD will need daily assessment to ensure adequate treatment and prevent supra-therapeutic levels MRI shows OM Wound Cx growing MRSA, E.coli, Enterobacter, Enterococcus and Yeast Sensitive to Vancomycin and Zosyn ID (Dr. Mclain) recommends IV Vancomycin and Zosyn for 6 weeks, will f/u optimal Vanc level considering s/p renal transplant and weekly assesments. Podiatry reccomends IV Abx., hyperbaric chamber and wound care with proper foot gear and citizen [place] walker as outpatient. #Endocrine -NIDDM ISS Levemir 35 units HgBA1c: 9.3% #Nephrology -s/p Renal transplant Tacrolimus level 12.9 will decrease Tacrolimus to 4mg BID (goal level 4-7). c/w Imuran 150mg c/w Prednisone 5mg monitor Eosinophils as this will indicate AIN; currently wnl f/u Eosinophil studies (Smear and Urine) consult with Nephrology (Dr. Carlton) appreciated -GERALDINE-resolving trend BMP, Cr. and BUN trending down c/w IVF #Cardiology -CAD c/w ASA 325mg & Plavix 75mg c/w Imdur EKG: NSR; Trop - x 2 -HLD c/w Lipitor 10mg -PVD prior stent LE Duplex: shows no stenosis c/w ASA & Plavix -HTN c/w Norvasc 5 mg c/w Bystolic 20 mg #F/E/N -d/c IVF, encourage PO intake -monitor electrolytes, replete as needed -DM/Na Diet #DVT PPx. -Hep SQ Visit type - Emergency Visit Emergency Visit: Yes ED Registration Date: 12/08/17 Care time: The patient presented to the Emergency Department on the above date and was hospitalized for further evaluation of their emergent condition. - New Patient This patient is new to me today: No - Critical Care Critical Care patient: No - Discharge Referral Referred to [facility] No
--- NOTE | 2017-12-14 11:15 | PN ---
Progress Note (short form) - Note Progress Note: Renal follow up for Renal Transplant Pt seen and examined at the bedside no acute complaints feels well, no sob, cp, abd pain, N/V/D making urine Vital Signs Temperature 97.7 F 12/14/17 10:00 Pulse Rate 50 L 12/14/17 10:00 Respiratory Rate 20 12/14/17 10:00 Blood Pressure 153/64 12/14/17 10:00 O2 Sat by Pulse Oximetry (%) 100 12/14/17 09:00 Intake & Output 12/11/17 12/12/17 12/13/17 12/14/17 23:59 23:59 23:59 23:59 Intake Total 2475 2150 0 Output Total 800 700 Balance 1675 2150 -700 NAD Neck supple RRR CTA no Le edema CBC, BMP 12/14/17 06:10 12/14/17 06:10 Laboratory Tests 12/11/17 12/12/17 12/14/17 07:10 06:15 06:10 Creat Clearance w eGFR 50.55 Calcium 9.4 Phosphorus Magnesium Random Vancomycin 7.3 L Tacrolimus 12.9 12/14/17 06:10 Creat Clearance w eGFR Calcium 7.7 L Phosphorus 2.5 Magnesium 1.6 L Random Vancomycin Tacrolimus Current Medications Amlodipine Besylate (Norvasc -) 5 mg PO DAILY [facility] Last Admin: 12/14/17 09:35 Dose: 5 mg Aspirin (Asa -) 325 mg PO DAILY [facility] Last Admin: 12/14/17 09:35 Dose: 325 mg Atorvastatin Calcium (Lipitor -) 10 mg PO HS [facility] Last Admin: 12/13/17 22:56 Dose: 10 mg Azathioprine (Imuran -) 150 mg PO DAILY [facility] Last Admin: 12/14/17 09:36 Dose: 150 mg Clopidogrel Bisulfate (Plavix -) 75 mg PO DAILY [facility] Last Admin: 12/14/17 09:35 Dose: 75 mg Ergocalciferol (Drisdol -) 50,000 unit PO Th [facility] Last Admin: 12/08/17 21:40 Dose: 50,000 unit Heparin Sodium (Porcine) (Heparin -) 5,000 unit SQ TID [facility] Last Admin: 12/14/17 06:56 Dose: 5,000 unit IV Flush (Picc Line Flush) 8 ml IVPUSH PRN PRN PRN Reason: Protocol Piperacillin Sod/Tazobactam (Sod 3.375 gm/ Dextrose) 50 mls @ 100 mls/hr IVPB Q8H-IV [facility]; Protocol Last Admin: 12/14/17 09:34 Dose: 100 mls/hr Sodium Chloride (Normal Saline -) 1,000 mls @ 100 mls/hr IV ASDIR [facility] Last Admin: 12/14/17 08:21 Dose: Not Given Insulin Aspart (Novolog Vial Sliding Scale -) 1 vial SQ ACHS [facility]; Protocol Last Admin: 12/14/17 06:53 Dose: Not Given Insulin Detemir (Levemir Vial) 35 units SQ HS [facility] Last Admin: 12/13/17 22:54 Dose: 35 units Isosorbide Mononitrate (Imdur -) 60 mg PO DAILY [facility] Last Admin: 12/14/17 09:35 Dose: 60 mg Nebivolol (Bystolic -) 20 mg PO DAILY [facility] Last Admin: 12/14/17 10:41 Dose: Not Given Polyethylene Glycol (Miralax (For Daily Use) -) 17 gm PO DAILY [facility] Last Admin: 12/14/17 09:36 Dose: 17 gm Prednisone (Deltasone -) 5 mg PO DAILY [facility] Last Admin: 12/14/17 09:35 Dose: 5 mg Ranitidine HCl (Zantac -) 150 mg PO DAILY [facility] Last Admin: 12/14/17 09:35 Dose: 150 mg Tacrolimus (Prograf) 4 mg PO BID [facility] Tamsulosin HCl (Flomax -) 0.4 mg PO 0830,2200 [facility] Last Admin: 12/14/17 08:21 Dose: 0.4 mg 67 year old gentleman with hx of ESRD s/p DDRT (2013), DM, Hypertension , PVD, LE wounds who presented with right foot wound suspected to be a diabetic foot wound or osteomylitis #Right foot wound #ESRD s/p renal transplant (on Tacrolimus, Azathioprine, Prednisone) #Hypertension #DM Tacrolimus level was 12, will decrease to 4mg BID (goal level 4-7) Continue Azathrioprine, Prednisone will need repeat tacrolimus levels drawn as outpatient pt should follow up with transplant wagon person on discharge (has appointment for early January) continue abx as per ID discharge planning as per primary Price Carlton DO
[2017-12-14] MEDS: BACITRACIN 15 GM TUBE TOPICAL OINTMENT TP SCH (16:49)
--- NOTE | 2017-12-14 19:22 | PN ---
Progress Note (short form) - Note Progress Note: Patient seen in bed. vss, tmax 98.2 +improved wound, -drainage today, -mal odor, mri om, -cellulitis today, wbc= 3.2 om charcot foot Continue Santyl. Continue wound care. IVABX and wound care outpatient with proper shoe gear and or benton walker. No plan for surgical intervention. will follow till dc. Awaiting group home placement. Problem List - Problems (1) Diabetic foot ulcer Code(s): E11.621 - TYPE 2 DIABETES MELLITUS WITH FOOT ULCER; L97.509 - NON- PRESSURE CHRONIC ULCER OTH PRT UNSP FOOT W UNSP SEVERITY Qualifiers: Diabetic foot ulcer location: midfoot Diabetes mellitus type: type 2 Laterality: right Non-pressure ulcer stage: unspecified non-pressure ulcer stage Qualified Code(s): E11.621 - Type 2 diabetes mellitus with foot ulcer; L97.419 - Non-pressure chronic ulcer of right heel and midfoot with unspecified severity
[2017-12-14] MEDS: COLLAGENASE CLOSTRIDIUM HIST. 30 GRAMS TUBE TP SCH (22:38)
[2017-12-14] MEDS: INSULIN (LEVEMIR) 100 UNITS/ML UNITS SQ SCH (22:39)
[2017-12-14] MEDS: ATORVASTATIN CA 10 MG TABLET (FP) PO SCH (22:39)
[2017-12-14] MEDS: TACROLIMUS ANHYDROUS 1 MG CAPSULE PO SCH (22:40)
[2017-12-15] MEDS ORDERED: PIPERACILLIN/TAZOBACTAM 3.375 GM VIAL IVPB ONE ×3 (02:12→17:09)
[2017-12-15] MEDS ORDERED: DEXTROSE 5%-WATER - 50 ML IVPB ONE ×3 (02:12→17:09)
[2017-12-15] MEDS: PIPERACILLIN/TAZOB 3.375 GM 3.375 GM in DEXTROSE 5%-WATER - 50 ML IVPB SCH ×3 (02:23→17:15)
[2017-12-15] MEDS: INSULIN SLIDING SCALE (NOVOLOG) 1 VIAL SQ SCH ×4 (06:19→21:40)
[2017-12-15] MEDS: HEPARIN NA (PORCINE) 5,000 UNITS/ML 1ML VIAL SQ SCH ×2 (06:19→13:31)
[2017-12-15 07:32] LABS: HEMOGLOBIN 11.3 GM/dL (11.7-16.9); RBC 4.27 M/mm3 (4.00-5.60); WHITE BLOOD COUNT 3.9 K/mm3 (4.0-10.0)
[2017-12-15 07:33] LABS: BASO % 0.5 % (0-2.0); EOS % 1.4 % (0-4.5); HEMATOCRIT 35.7 % (35.4-49); LYMPH % 30.7 % (8-40); MCH 26.4 pg (25.7-33.7); MCHC 31.6 g/dl (32.0-35.9); MEAN CELL VOLUME 83.6 fl (80-96); MONO % 12.2 % (3.8-10.2); NEUT % 55.2 % (42.8-82.8); PLATELET COUNT 277 K/MM3 (134-434); RDW 17.9 % (11.9-15.9)
[2017-12-15 07:52] LABS: ANION GAP 8 MMOL/L (8-16); BLOOD UREA NITROGEN 20 mg/dL (7-18); CALCIUM 9.7 mg/dL (8.5-10.1); CHLORIDE 107 mmol/L (98-107); CO2 25 mmol/L (21-32); CREATININE 1.2 mg/dL (0.55-1.3); GLUCOSE,RANDOM 144 mg/dL (74-106); MAGNESIUM 1.9 mg/dL (1.8-2.4); PHOSPHOROUS 2.5 mg/dL (2.5-4.9); SODIUM 140 mmol/L (136-145)
[2017-12-15] MEDS ORDERED: ERGOCALCIFEROL (VITAMIN D2) 50,000 UNIT CAPSULE (FP) PO SCH (10:00)
[2017-12-15] MEDS ORDERED: amLODIPine BESYLATE 10 MG TABLET (FP) PO SCH (10:00)
[2017-12-15] MEDS ORDERED: PT OWN MED DRAWER 7, Y5N ONE ×3 (10:32→20:49)
[2017-12-15] MEDS: TAMSULOSIN HCL 0.4 MG CAP PO SCH ×2 (10:41→21:39)
[2017-12-15] MEDS: RANITIDINE HCL 150 MG TABLET (FP) PO SCH (10:41)
[2017-12-15] MEDS: CLOPIDOGREL BISULFATE 75 MG TABLET (FP) PO SCH (10:41)
[2017-12-15] MEDS: predniSONE 5 MG TABLET (UD) PO SCH (10:41)
[2017-12-15] MEDS: NEBIVOLOL 10 MG TABLET (FP) PO SCH (10:42)
[2017-12-15] MEDS: ASPIRIN 325 MG TABLET PO SCH (10:42)
[2017-12-15] MEDS: ISOSORBIDE MONONITRATE 60 MG TAB.SR.24H (FP) PO SCH (10:42)
[2017-12-15] MEDS: azaTHIOprine 50 MG TABLET PO SCH (10:42)
[2017-12-15] MEDS: TACROLIMUS ANHYDROUS 1 MG CAPSULE PO SCH ×2 (10:43→21:39)
--- NOTE | 2017-12-15 11:24 | PN ---
Progress Note (short form) - Note Progress Note: Renal follow up for Renal Transplant Pt seen and examined at the bedside awake and alert no acute complaints BP has been high making urine Vital Signs Temperature 98.3 F 12/15/17 06:37 Pulse Rate 54 L 12/15/17 06:37 Respiratory Rate 18 12/15/17 06:37 Blood Pressure 167/52 L 12/15/17 06:37 O2 Sat by Pulse Oximetry (%) 97 12/14/17 21:00 Intake & Output 12/12/17 12/13/17 12/14/17 12/15/17 23:59 23:59 23:59 23:59 Intake Total 2475 2150 700 50 Output Total 800 700 300 Balance 1675 2150 0 -250 NAD Neck supple RRR CTA no Le edema CBC, BMP 12/15/17 06:00 12/15/17 06:00 Laboratory Tests 12/15/17 06:00 Calcium 9.7 Phosphorus 2.5 Magnesium 1.9 Current Medications Amlodipine Besylate (Norvasc -) 10 mg PO DAILY [facility] Last Admin: 12/15/17 10:42 Dose: 10 mg Aspirin (Asa -) 325 mg PO DAILY [facility] Last Admin: 12/15/17 10:42 Dose: 325 mg Atorvastatin Calcium (Lipitor -) 10 mg PO HS [facility] Last Admin: 12/14/17 22:39 Dose: 10 mg Azathioprine (Imuran -) 150 mg PO DAILY [facility] Last Admin: 12/15/17 10:42 Dose: 150 mg Bacitracin (Bacitracin -) 1 applic TP DAILY [facility] Last Admin: 12/14/17 16:49 Dose: 1 applic Clopidogrel Bisulfate (Plavix -) 75 mg PO DAILY [facility] Last Admin: 12/15/17 10:41 Dose: 75 mg Collagenase (Santyl -) 1 applic TP DAILY [facility]; Protocol Last Admin: 12/14/17 22:38 Dose: 1 applic Ergocalciferol (Drisdol -) 50,000 unit PO Th@1000 [facility] Heparin Sodium (Porcine) (Heparin -) 5,000 unit SQ TID [facility] Last Admin: 12/15/17 06:19 Dose: Not Given IV Flush (Picc Line Flush) 8 ml IVPUSH PRN PRN PRN Reason: Protocol Piperacillin Sod/Tazobactam (Sod 3.375 gm/ Dextrose) 50 mls @ 100 mls/hr IVPB Q8H-IV [facility]; Protocol Last Admin: 12/15/17 10:41 Dose: 100 mls/hr Insulin Aspart (Novolog Vial Sliding Scale -) 1 vial SQ ACHS [facility]; Protocol Last Admin: 12/15/17 06:19 Dose: Not Given Insulin Detemir (Levemir Vial) 35 units SQ HS [facility] Last Admin: 12/14/17 22:39 Dose: 35 units Isosorbide Mononitrate (Imdur -) 60 mg PO DAILY [facility] Last Admin: 12/15/17 10:42 Dose: 60 mg Nebivolol (Bystolic -) 20 mg PO DAILY [facility] Last Admin: 12/15/17 10:42 Dose: 20 mg Polyethylene Glycol (Miralax (For Daily Use) -) 17 gm PO DAILY [facility] Last Admin: 12/14/17 09:36 Dose: 17 gm Prednisone (Deltasone -) 5 mg PO DAILY [facility] Last Admin: 12/15/17 10:41 Dose: 5 mg Ranitidine HCl (Zantac -) 150 mg PO DAILY [facility] Last Admin: 12/15/17 10:41 Dose: 150 mg Tacrolimus (Prograf) 4 mg PO BID [facility] Last Admin: 12/15/17 10:43 Dose: 4 mg Tamsulosin HCl (Flomax -) 0.4 mg PO 0830,2200 [facility] Last Admin: 12/15/17 10:41 Dose: 0.4 mg 67 year old gentleman with hx of ESRD s/p DDRT (2013), DM, Hypertension , PVD, LE wounds who presented with right foot wound suspected to be a diabetic foot wound or osteomylitis #Right foot wound #ESRD s/p renal transplant (on Tacrolimus, Azathioprine, Prednisone) #Hypertension #DM Renal function stable can consider addition or ARB for better BP control would be cautious with titration of CCB as they can increase tacrolimus levels continue tacolimus, azathiprine and prednisone discharge planning as per primary Abx as per ID recs Price Carlton DO
[2017-12-15] MEDS: POLYETHYLENE GLYCOL 3350 119 GM BTL PO SCH (11:42)
[2017-12-15] MEDS: COLLAGENASE CLOSTRIDIUM HIST. 30 GRAMS TUBE TP SCH (11:44)
[2017-12-15] MEDS: BACITRACIN 15 GM TUBE TOPICAL OINTMENT TP SCH (11:44)
--- NOTE | 2017-12-15 13:18 | DS ---
Physical Exam: SUBJECTIVE: Patient seen and examined OBJECTIVE: Vital Signs Period Temp Pulse Resp BP Sys/Oliveira Pulse Ox Last 24 Hr 97.6 F-98.5 F 53-64 17-20 121-188/46-75 97-98 PHYSICAL EXAM GENERAL: The patient is awake, alert, and fully oriented, in no acute distress. HEAD: Normal with no signs of trauma. EYES: PERRL, extraocular movements intact, sclera anicteric, conjunctiva clear. ENT: Ears normal, nares patent, oropharynx clear without exudates, moist mucous membranes. NECK: Trachea midline, full range of motion, supple. LUNGS: Breath sounds equal, clear to auscultation bilaterally, no wheezes, no crackles, no accessory muscle use. HEART: Regular rate and rhythm, S1, S2 without murmur, rub or gallop. ABDOMEN: Soft, nontender, nondistended, normoactive bowel sounds, no guarding, no rebound, no hepatosplenomegaly, no masses. EXTREMITIES: 2+ pulses, warm, well-perfused, no edema. NEUROLOGICAL: Cranial nerves II through XII grossly intact. Normal speech, gait not observed. PSYCH: Normal mood, normal affect. SKIN: Warm, dry, normal turgor, no rashes or lesions noted. LABS Laboratory Results - last 24 hr 12/14/17 12/14/17 12/15/17 16:32 22:37 06:00 WBC RBC Hgb Hct MCV MCH MCHC RDW Plt Count MPV Absolute Neuts (auto) Neutrophils % Lymphocytes % Monocytes % Eosinophils % Basophils % Nucleated RBC % Sodium Potassium Chloride Carbon Dioxide Anion Gap BUN Creatinine Creat Clearance w eGFR POC Glucometer 165 258 Random Glucose Calcium Phosphorus Magnesium Random Vancomycin 5.7 L 12/15/17 12/15/17 12/15/17 06:00 06:00 06:18 WBC 3.9 L RBC 4.27 Hgb 11.3 L Hct 35.7 MCV 83.6 MCH 26.4 MCHC 31.6 L RDW 17.9 H Plt Count 277 MPV 7.0 L Absolute Neuts (auto) 2.2 Neutrophils % 55.2 Lymphocytes % 30.7 Monocytes % 12.2 H Eosinophils % 1.4 Basophils % 0.5 Nucleated RBC % 0 Sodium 140 Potassium 5.0 Chloride 107 Carbon Dioxide 25 Anion Gap 8 BUN 20 H Creatinine 1.2 Creat Clearance w eGFR > 60 POC Glucometer 149 Random Glucose 144 H Calcium 9.7 Phosphorus 2.5 Magnesium 1.9 Random Vancomycin 12/15/17 11:41 WBC RBC Hgb Hct MCV MCH MCHC RDW Plt Count MPV Absolute Neuts (auto) Neutrophils % Lymphocytes % Monocytes % Eosinophils % Basophils % Nucleated RBC % Sodium Potassium Chloride Carbon Dioxide Anion Gap BUN Creatinine Creat Clearance w eGFR POC Glucometer 158 Random Glucose Calcium Phosphorus Magnesium Random Vancomycin HOSPITAL COURSE: Date of Admission:12/08/17 Date of Discharge: 12/15/17 Discharge Summary Reason For Visit: DIABETIC FOOT ULCER,STATUS POST KIDNEY TRANSPLANT, Current Active Problems Diabetes mellitus (Acute) Diabetic foot ulcer (Acute) Osteomyelitis (Acute) CAD (coronary artery disease) (Chronic) Diabetic peripheral vascular disease (Chronic) Hyperlipidemia (Chronic) Hypertension (Chronic) Status post kidney transplant (Chronic) Condition: Good - Instructions Diet, Activity, Other Instructions: You were admitted for a diabetic foot ulcer We started you on intravenous antibiotics( Vancomycin and Zosyn) to be given daily for 6 weeks Please continue with Vancomycin, ONCE a day and Zosyn 3 times a day (every 8 hours). Please get a Random Vancomycin level once a day. If Vancomycin is within therapeutic range Please get Vancomycin Trough (30 min before Vancomycin dose), CRP, ESR, CMP and CBC labs drawn every week. We have started you on another medication for your blood pressure, Lisinopril 5mg ONCE a Day Please take as prescribed. Please follow up with your Primary Care Physician in 1 week, for BP medication adjustments. Please Follow up with Wound Care upon discharge for dressing changes and Hyperbaric chamber treatments. Please follow up with your Cigarette Making Examiner (Dr. Parson), at [facility] within 1 week for further management of your medications. Please return to the ED if you experience fever, chills, purulence, increased redness of ulcer, decreased sensation in foot or severe pain in left foot. Referrals: Víctor Mclain MD [Staff Physician] - Eric Flores MD [Non Staff, Medical] - Sherry Monson DPM [Staff Physician] - Disposition: [facility] - Home Medications Comprehensive Discharge Medication List: Ambulatory Orders Clopidogrel Bisulfate [Plavix -] 75 mg PO DAILY 04/24/15 Ranitidine [Zantac -] 150 mg PO DAILY 03/17/16 Simvastatin [Zocor -] 20 mg PO HS 04/24/15 Tacrolimus [Astagraf Xl] 9 mg PO DAILY 04/24/15 Tamsulosin HCl [Flomax -] 0.4 mg PO BID 04/24/15 Aspirin [ASA -] 325 mg PO DAILY 07/08/17 Azathioprine [Imuran] 150 mg PO DAILY 07/08/17 Ergocalciferol (Vitamin D2) [Vitamin D2] 50,000 unit PO MONTHLY 07/08/17 Isosorbide Mononitrate [Isosorbide Mononitrate ER] 60 mg PO DAILY 07/08/17 Nebivolol HCl [Bystolic] 20 mg PO DAILY 07/08/17 Polyethylene Glycol 3350 [Miralax 119 gm Btl -] 17 gm PO DAILY 07/08/17 Prednisone 5 mg PO DAILY 07/08/17 Sitagliptin Phosphate [Januvia] 100 mg PO DAILY 07/08/17 Sodium Bicarbonate - 2 tab PO BID 07/08/17 Insulin (Levemir) [Levemir Vial] 35 unit SQ HS #1 vial 08/07/17 Cinacalcet HCl [Sensipar -] 30 mg PO DAILY 12/09/17 metFORMIN XR [Glucophage Xr -] 750 mg PO BID 12/09/17 Piperacillin/Tazob 3.375 gm [Zosyn -] 3.375 gm IVPB Q8H-IV 42 Days #126 vial 07/25 Vancomycin HCl in Dextrose 5 % [Vancomycin 1 Gram/250 ml-D5w] 1 gm IV ASDIR 42 Days #42 plast..bag 12/13/17 Amlodipine Besylate [Norvasc -] 5 mg PO DAILY tablet 12/15/17 Lisinopril 5 mg PO DAILY #30 tablet 12/15/17 - Discharge Referral Referred to [facility] No
--- NOTE | 2017-12-15 15:14 | PN ---
Physical Exam: SUBJECTIVE: Patient seen and examined. No acute events overnight. No complaints. OBJECTIVE: Vital Signs Period Temp Pulse Resp BP Sys/Oliveira Pulse Ox Last 24 Hr 97.6 F-98.5 F 51-64 17-20 146-188/52-75 97-98 GENERAL: The patient is awake, alert, and fully oriented, in no acute distress. EYES: Sclera anicteric, conjunctiva clear. No ptosis. ENT: Ears normal, nares patent, moist mucous membranes. LUNGS: Breath sounds equal, clear to auscultation bilaterally, no wheezes, no crackles, wet-sounding cough, no accessory muscle use. HEART: Regular rate and rhythm, S1, S2 without murmur ABDOMEN: Soft, nontender, nondistended, normoactive bowel sounds, no guarding, no rebound EXTREMITIES: 1+ posterior tibial pulses, no calf tenderness, warm, well-perfused , no edema. NEUROLOGICAL: Normal speech, gait not observed. PSYCH: Delayed understanding? SKIN: Warm, dry, normal turgor Laboratory Results - last 24 hr 12/14/17 12/14/17 12/15/17 16:32 22:37 06:00 WBC RBC Hgb Hct MCV MCH MCHC RDW Plt Count MPV Absolute Neuts (auto) Neutrophils % Lymphocytes % Monocytes % Eosinophils % Basophils % Nucleated RBC % Sodium Potassium Chloride Carbon Dioxide Anion Gap BUN Creatinine Creat Clearance w eGFR POC Glucometer 165 258 Random Glucose Calcium Phosphorus Magnesium Random Vancomycin 5.7 L 12/15/17 12/15/17 12/15/17 06:00 06:00 06:18 WBC 3.9 L RBC 4.27 Hgb 11.3 L Hct 35.7 MCV 83.6 MCH 26.4 MCHC 31.6 L RDW 17.9 H Plt Count 277 MPV 7.0 L Absolute Neuts (auto) 2.2 Neutrophils % 55.2 Lymphocytes % 30.7 Monocytes % 12.2 H Eosinophils % 1.4 Basophils % 0.5 Nucleated RBC % 0 Sodium 140 Potassium 5.0 Chloride 107 Carbon Dioxide 25 Anion Gap 8 BUN 20 H Creatinine 1.2 Creat Clearance w eGFR > 60 POC Glucometer 149 Random Glucose 144 H Calcium 9.7 Phosphorus 2.5 Magnesium 1.9 Random Vancomycin 12/15/17 11:41 WBC RBC Hgb Hct MCV MCH MCHC RDW Plt Count MPV Absolute Neuts (auto) Neutrophils % Lymphocytes % Monocytes % Eosinophils % Basophils % Nucleated RBC % Sodium Potassium Chloride Carbon Dioxide Anion Gap BUN Creatinine Creat Clearance w eGFR POC Glucometer 158 Random Glucose Calcium Phosphorus Magnesium Random Vancomycin Active Medications Current Medications Amlodipine Besylate (Norvasc -) 10 mg PO DAILY [facility] Last Admin: 12/15/17 10:42 Dose: 10 mg Aspirin (Asa -) 325 mg PO DAILY [facility] Last Admin: 12/15/17 10:42 Dose: 325 mg Atorvastatin Calcium (Lipitor -) 10 mg PO HS [facility] Last Admin: 12/14/17 22:39 Dose: 10 mg Azathioprine (Imuran -) 150 mg PO DAILY [facility] Last Admin: 12/15/17 10:42 Dose: 150 mg Bacitracin (Bacitracin -) 1 applic TP DAILY [facility] Last Admin: 12/15/17 11:44 Dose: Not Given Clopidogrel Bisulfate (Plavix -) 75 mg PO DAILY [facility] Last Admin: 12/15/17 10:41 Dose: 75 mg Collagenase (Santyl -) 1 applic TP DAILY [facility]; Protocol Last Admin: 12/15/17 11:44 Dose: 1 applic Ergocalciferol (Drisdol -) 50,000 unit PO Th@1000 [facility] Last Admin: 12/15/17 11:43 Dose: 50,000 unit Heparin Sodium (Porcine) (Heparin -) 5,000 unit SQ TID [facility] Last Admin: 12/15/17 13:31 Dose: 5,000 unit IV Flush (Picc Line Flush) 8 ml IVPUSH PRN PRN PRN Reason: Protocol Piperacillin Sod/Tazobactam (Sod 3.375 gm/ Dextrose) 50 mls @ 100 mls/hr IVPB Q8H-IV [facility]; Protocol Last Admin: 12/15/17 17:15 Dose: 100 mls/hr Vancomycin HCl (Vancomycin (Pre-Docked)) 1,000 mg in 250 mls @ 166.667 mls/hr IVPB Q24H [facility]; Protocol Insulin Aspart (Novolog Vial Sliding Scale -) 1 vial SQ ACHS [facility]; Protocol Last Admin: 12/15/17 17:16 Dose: 2 units Insulin Detemir (Levemir Vial) 35 units SQ HS [facility] Last Admin: 12/14/17 22:39 Dose: 35 units Isosorbide Mononitrate (Imdur -) 60 mg PO DAILY [facility] Last Admin: 12/15/17 10:42 Dose: 60 mg Nebivolol (Bystolic -) 20 mg PO DAILY [facility] Last Admin: 12/15/17 10:42 Dose: 20 mg Polyethylene Glycol (Miralax (For Daily Use) -) 17 gm PO DAILY [facility] Last Admin: 12/15/17 11:42 Dose: 17 gm Prednisone (Deltasone -) 5 mg PO DAILY [facility] Last Admin: 12/15/17 10:41 Dose: 5 mg Ranitidine HCl (Zantac -) 150 mg PO DAILY [facility] Last Admin: 12/15/17 10:41 Dose: 150 mg Tacrolimus (Prograf) 4 mg PO BID [facility] Last Admin: 12/15/17 10:43 Dose: 4 mg Tamsulosin HCl (Flomax -) 0.4 mg PO 0830,2200 [facility] Last Admin: 12/15/17 10:41 Dose: 0.4 mg Home Medications Medication Instructions Recorded Clopidogrel Bisulfate [Plavix -] 75 mg PO DAILY 04/24/15 Ranitidine [Zantac -] 150 mg PO DAILY 04/24/15 Simvastatin [Zocor -] 20 mg PO HS 04/24/15 Tacrolimus [Astagraf Xl] 9 mg PO DAILY 04/24/15 Tamsulosin HCl [Flomax -] 0.4 mg PO BID 04/24/15 Aspirin [ASA -] 325 mg PO DAILY 07/08/17 Azathioprine [Imuran] 150 mg PO DAILY 07/08/17 Ergocalciferol (Vitamin D2) 50,000 unit PO MONTHLY 07/08/17 [Vitamin D2] Isosorbide Mononitrate [Isosorbide 60 mg PO DAILY 07/08/17 Mononitrate ER] Nebivolol HCl [Bystolic] 20 mg PO DAILY 07/08/17 Polyethylene Glycol 3350 [Miralax 17 gm PO DAILY 07/08/17 119 gm Btl -] Prednisone 5 mg PO DAILY 07/08/17 Sitagliptin Phosphate [Januvia] 100 mg PO DAILY 07/08/17 Sodium Bicarbonate - 2 tab PO BID 07/08/17 Insulin (Levemir) [Levemir Vial] 35 unit SQ HS #1 vial 08/07/17 Cinacalcet HCl [Sensipar -] 30 mg PO DAILY 12/09/17 metFORMIN XR [Glucophage Xr -] 750 mg PO BID 12/09/17 Piperacillin/Tazob 3.375 gm [Zosyn 3.375 gm IVPB Q8H-IV 42 Days #126 12/13/17 -] vial Vancomycin HCl in Dextrose 5 % 1 gm IV ASDIR 42 Days #42 12/13/17 [Vancomycin 1 Gram/250 ml-D5w] plast..bag Amlodipine Besylate [Norvasc -] 5 mg PO DAILY tablet 12/15/17 Lisinopril 5 mg PO DAILY #30 tablet 12/15/17 ASSESSMENT/PLAN: Pt. is a 67 y.o. M with PMHx. of NIDDM, ESRD s/p cadaveric kidney transplant, chronic OM and CAD (06/24) who presented for a foot ulcer. #Infectious Disease -Foot ulcer 2/2 Diabetes h/o OM c/w Vancomycin and Zosyn Random Vanc level today: 7.3 f/u Daily Random Vanc level as Pt. is ESRD will need daily assessment to ensure adequate treatment and prevent supra-therapeutic levels MRI shows OM Wound Cx growing MRSA, E.coli, Enterobacter, Enterococcus and Yeast Sensitive to Vancomycin and Zosyn ID (Dr. Mclain) recommends IV Vancomycin and Zosyn for 6 weeks, will f/u optimal Vanc level considering s/p renal transplant and weekly assesments. Podiatry reccomends IV Abx., hyperbaric chamber and wound care with proper foot gear and osage walker as outpatient. #Endocrine -NIDDM ISS Levemir 35 units HgBA1c: 9.3% #Nephrology -s/p Renal transplant Tacrolimus level 12.9 will decrease Tacrolimus to 4mg BID (goal level 4-7). c/w Imuran 150mg c/w Prednisone 5mg monitor Eosinophils as this will indicate AIN; currently wnl f/u Eosinophil studies (Smear and Urine) consult with Nephrology (Dr. Carlton) appreciated -GERALDINE-resolving trend BMP, Cr. and BUN trending down c/w IVF #Cardiology -CAD c/w ASA 325mg & Plavix 75mg c/w Imdur EKG: NSR; Trop - x 2 -HLD c/w Lipitor 10mg -PVD prior stent LE Duplex: shows no stenosis c/w ASA & Plavix -HTN c/w Norvasc 5 mg c/w Bystolic 20 mg #F/E/N -d/c IVF, encourage PO intake -monitor electrolytes, replete as needed -DM/Na Diet #DVT PPx. -Hep SQ Visit type - Emergency Visit Emergency Visit: Yes ED Registration Date: 12/08/17 Care time: The patient presented to the Emergency Department on the above date and was hospitalized for further evaluation of their emergent condition. - New Patient This patient is new to me today: No - Critical Care Critical Care patient: No - Discharge Referral Referred to [facility] Med P.C.: No
--- NOTE | 2017-12-15 16:54 | PN ---
Progress Note (short form) - Note Progress Note: Patient seen in bed. vss, tmax 98.1 +improved wound, -drainage today, -mal odor, mri om, -cellulitis today, wbc= 3.9 om charcot foot Continue Santyl. Continue wound care. IVABX and wound care outpatient. will follow till dc. Awaiting fpc placement. Problem List - Problems (1) Diabetic foot ulcer Code(s): E11.621 - TYPE 2 DIABETES MELLITUS WITH FOOT ULCER; L97.509 - NON- PRESSURE CHRONIC ULCER OTH PRT UNSP FOOT W UNSP SEVERITY Qualifiers: Diabetic foot ulcer location: midfoot Diabetes mellitus type: type 2 Laterality: right Non-pressure ulcer stage: unspecified non-pressure ulcer stage Qualified Code(s): E11.621 - Type 2 diabetes mellitus with foot ulcer; L97.419 - Non-pressure chronic ulcer of right heel and midfoot with unspecified severity
--- NOTE | 2017-12-15 16:58 | PN ---
Progress Note, Physician History of Present Illness: Awake, alert No c/o foot pain No fever/ chills Tolerating antibiotics vancomycin level noted - Current Medication List Current Medications: Active Medications Amlodipine Besylate (Norvasc -) 10 mg PO DAILY [facility] Last Admin: 12/15/17 10:42 Dose: 10 mg Aspirin (Asa -) 325 mg PO DAILY [facility] Last Admin: 12/15/17 10:42 Dose: 325 mg Atorvastatin Calcium (Lipitor -) 10 mg PO HS [facility] Last Admin: 12/14/17 22:39 Dose: 10 mg Azathioprine (Imuran -) 150 mg PO DAILY [facility] Last Admin: 12/15/17 10:42 Dose: 150 mg Bacitracin (Bacitracin -) 1 applic TP DAILY [facility] Last Admin: 12/15/17 11:44 Dose: Not Given Clopidogrel Bisulfate (Plavix -) 75 mg PO DAILY [facility] Last Admin: 12/15/17 10:41 Dose: 75 mg Collagenase (Santyl -) 1 applic TP DAILY [facility]; Protocol Last Admin: 12/15/17 11:44 Dose: 1 applic Ergocalciferol (Drisdol -) 50,000 unit PO Th@1000 [facility] Last Admin: 12/15/17 11:43 Dose: 50,000 unit Heparin Sodium (Porcine) (Heparin -) 5,000 unit SQ TID [facility] Last Admin: 12/15/17 13:31 Dose: 5,000 unit IV Flush (Picc Line Flush) 8 ml IVPUSH PRN PRN PRN Reason: Protocol Piperacillin Sod/Tazobactam (Sod 3.375 gm/ Dextrose) 50 mls @ 100 mls/hr IVPB Q8H-IV [facility]; Protocol Last Admin: 12/15/17 10:41 Dose: 100 mls/hr Insulin Aspart (Novolog Vial Sliding Scale -) 1 vial SQ ACHS [facility]; Protocol Last Admin: 12/15/17 11:49 Dose: 2 units Insulin Detemir (Levemir Vial) 35 units SQ HS [facility] Last Admin: 12/14/17 22:39 Dose: 35 units Isosorbide Mononitrate (Imdur -) 60 mg PO DAILY [facility] Last Admin: 12/15/17 10:42 Dose: 60 mg Nebivolol (Bystolic -) 20 mg PO DAILY [facility] Last Admin: 12/15/17 10:42 Dose: 20 mg Polyethylene Glycol (Miralax (For Daily Use) -) 17 gm PO DAILY [facility] Last Admin: 12/15/17 11:42 Dose: 17 gm Prednisone (Deltasone -) 5 mg PO DAILY [facility] Last Admin: 12/15/17 10:41 Dose: 5 mg Ranitidine HCl (Zantac -) 150 mg PO DAILY [facility] Last Admin: 12/15/17 10:41 Dose: 150 mg Tacrolimus (Prograf) 4 mg PO BID [facility] Last Admin: 12/15/17 10:43 Dose: 4 mg Tamsulosin HCl (Flomax -) 0.4 mg PO 30,0 [facility] Last Admin: 12/15/17 10:41 Dose: 0.4 mg - Objective Vital Signs: Vital Signs Temperature 97.6 F 12/15/17 13:59 Pulse Rate 51 L 12/15/17 13:59 Respiratory Rate 18 12/15/17 13:59 Blood Pressure 188/75 H 12/15/17 10:00 O2 Sat by Pulse Oximetry (%) 98 12/15/17 09:00 Constitutional: Yes: No Distress Eyes: Yes: Conjunctiva Clear Cardiovascular: Yes: Regular Rate and Rhythm, S1, S2 Respiratory: Yes: CTA Bilaterally Gastrointestinal: Yes: Normal Bowel Sounds, Soft. No: Tenderness Extremities: Yes: Other (plantar ulcer no drainage/ erythema) Labs: CBC, BMP 12/15/17 06:00 12/15/17 06:00 INR, PTT INR 0.97 (0.83-1.09) 12/08/17 18:14 Assessment/Plan Infected plantar ulcer Chronic osteomyelitis S/P renal transplant Continue zosyn / vancomycin Will need prison antibiotic tx for osteo
[2017-12-15] MEDS ORDERED: VANCOMYCIN 1 GRAM (PRE-DOCKED) 1,000 MG/250 ML BAG IVPB SCH (17:00)
--- NOTE | 2017-12-15 19:52 | PN ---
Teaching Attending Note Name of Resident: Gama Myles ATTENDING PHYSICIAN STATEMENT I saw and evaluated the patient. I reviewed the resident's note and discussed the case with the resident. I agree with the resident's findings and plan as documented. SUBJECTIVE: Patient is comfortable with no acute distress. No nausea or vomiting. OBJECTIVE: Vital Signs Temperature 98.1 F 12/15/17 19:05 Pulse Rate 53 L 12/15/17 19:05 Respiratory Rate 18 12/15/17 19:05 Blood Pressure 140/59 L 12/15/17 19:05 O2 Sat by Pulse Oximetry (%) 98 12/15/17 09:00 GENERAL: The patient is awake, alert, and fully oriented, in no acute distress. EYES: PERRL, extraocular movements intact, sclera anicteric, conjunctiva clear. ENT: Ears normal, oropharynx clear without exudates, moist mucous membranes. NECK: Trachea midline, full range of motion, supple. LUNGS: Breath sounds equal, clear to auscultation bilaterally, no wheezes, no crackles, no accessory muscle use. HEART: Regular rate and rhythm, S1, S2 without murmur ABDOMEN: Soft, nontender, nondistended, bowel sounds sluggish, no guarding, no rebound EXTREMITIES: posterior tibial pulses b/l, warm, no edema. NEUROLOGICAL: Normal speech, gait not observed. PSYCH: Normal mood, normal affect. SKIN: Warm, dry, normal turgor, no rashes or lesions noted WBC 3.9 K/mm3 (4.0-10.0) L 12/15/17 06:00 RBC 4.27 M/mm3 (4.00-5.60) 12/15/17 06:00 Hgb 11.3 GM/dL (11.7-16.9) L 12/15/17 06:00 Hct 35.7 % (35.4-49) 12/15/17 06:00 MCV 83.6 fl (80-96) 12/15/17 06:00 MCHC 31.6 g/dl (32.0-35.9) L 12/15/17 06:00 RDW 17.9 % (11.9-15.9) H 12/15/17 06:00 Plt Count 277 K/MM3 (134-434) 12/15/17 06:00 MPV 7.0 fl (7.5-11.1) L 12/15/17 06:00 CMP Sodium 140 mmol/L (136-145) 12/15/17 06:00 Potassium 5.0 mmol/L (3.5-5.1) 12/15/17 06:00 Chloride 107 mmol/L (98-107) 12/15/17 06:00 Carbon Dioxide 25 mmol/L (21-32) 12/15/17 06:00 Anion Gap 8 MMOL/L (8-16) 12/15/17 06:00 BUN 20 mg/dL (7-18) H 12/15/17 06:00 Creatinine 1.2 mg/dL (0.55-1.3) 12/15/17 06:00 Creat Clearance w eGFR > 60 (>60) 12/15/17 06:00 Random Glucose 144 mg/dL (74-106) H 12/15/17 06:00 Calcium 9.7 mg/dL (8.5-10.1) 12/15/17 06:00 Total Bilirubin 0.4 mg/dL (0.2-1) 12/09/17 06:25 AST 10 U/L (15-37) L 12/09/17 06:25 ALT 9 U/L (13-61) L 12/09/17 06:25 Alkaline Phosphatase 69 U/L (45-117) 12/09/17 06:25 Total Protein 6.4 g/dl (6.4-8.2) 12/09/17 06:25 Albumin 3.0 g/dl (3.4-5.0) L 12/09/17 06:25 CARDIAC ENZYMES Troponin I < 0.02 ng/ml (0.00-0.05) 12/10/17 16:25 Current Medications Generic Name Dose Route Start Last Admin Trade Name Freq PRN Reason Stop Dose Admin Amlodipine Besylate 5 mg 12/16/17 10:00 Norvasc - PO DAILY [facility] Aspirin 325 mg 12/09/17 10:00 12/15/17 10:42 Asa - PO 325 mg DAILY [facility] Administration Atorvastatin Calcium 10 mg 12/08/17 22:00 12/14/17 22:39 Lipitor - PO 10 mg HS [facility] Administration Azathioprine 150 mg 12/09/17 10:00 12/15/17 10:42 Imuran - PO 150 mg DAILY [facility] Administration Bacitracin 1 applic 12/14/17 16:30 12/15/17 11:44 Bacitracin - TP Not Given DAILY [facility] Clopidogrel Bisulfate 75 mg 12/09/17 10:00 12/15/17 10:41 Plavix - PO 75 mg DAILY [facility] Administration Collagenase 1 applic 12/14/17 19:30 12/15/17 11:44 Santyl - TP 1 applic DAILY [facility] Administration Protocol Ergocalciferol 50,000 unit 12/15/17 10:00 12/15/17 11:43 Drisdol - PO 50,000 unit Th@1000 [facility] Administration Heparin Sodium (Porcine) 5,000 unit 12/08/17 22:00 12/15/17 13:31 Heparin - SQ 5,000 unit TID [facility] Administration IV Flush 8 ml 12/14/17 10:29 Picc Line Flush IVPUSH PRN PRN Protocol Piperacillin Sod/Tazobactam 50 mls @ 100 mls/hr 12/10/17 18:00 12/15/17 17:15 Sod 3.375 gm/ Dextrose IVPB 100 mls/hr Q8H-IV [facility] Administration Protocol Vancomycin HCl 1,000 mg in 250 mls @ 166.667 mls/hr 12/15/17 17:00 12/15/17 17:58 Vancomycin (Pre-Docked) IVPB 166.667 mls/hr Q24H [facility] Administration Protocol Insulin Aspart 1 vial 12/08/17 22:00 12/15/17 17:16 Novolog Vial Sliding Scale - SQ 2 units ACHS [facility] Administration Protocol Insulin Detemir 35 units 12/08/17 22:00 12/14/17 22:39 Levemir Vial SQ 35 units HS [facility] Administration Isosorbide Mononitrate 60 mg 12/09/17 10:00 12/15/17 10:42 Imdur - PO 60 mg DAILY [facility] Administration Nebivolol 20 mg 12/09/17 10:00 12/15/17 10:42 Bystolic - PO 20 mg DAILY [facility] Administration Polyethylene Glycol 17 gm 12/09/17 10:00 12/15/17 11:42 Miralax (For Daily Use) - PO 17 gm DAILY [facility] Administration Prednisone 5 mg 12/09/17 10:00 12/15/17 10:41 Deltasone - PO 5 mg DAILY [facility] Administration Ranitidine HCl 150 mg 12/09/17 10:00 12/15/17 10:41 Zantac - PO 150 mg DAILY [facility] Administration Tacrolimus 4 mg 12/14/17 22:00 12/15/17 10:43 Prograf PO 4 mg BID [facility] Administration Tamsulosin HCl 0.4 mg 12/08/17 22:00 12/15/17 10:41 Flomax - PO 0.4 mg 0830,2200 [facility] Administration Home Medications Medication Instructions Recorded Clopidogrel Bisulfate [Plavix -] 75 mg PO DAILY 04/24/15 Ranitidine [Zantac -] 150 mg PO DAILY 04/24/15 Simvastatin [Zocor -] 20 mg PO HS 04/24/15 Tacrolimus [Astagraf Xl] 9 mg PO DAILY 04/24/15 Tamsulosin HCl [Flomax -] 0.4 mg PO BID 04/24/15 Aspirin [ASA -] 325 mg PO DAILY 07/08/17 Azathioprine [Imuran] 150 mg PO DAILY 07/08/17 Ergocalciferol (Vitamin D2) 50,000 unit PO MONTHLY 07/08/17 [Vitamin D2] Isosorbide Mononitrate [Isosorbide 60 mg PO DAILY 07/08/17 Mononitrate ER] Nebivolol HCl [Bystolic] 20 mg PO DAILY 07/08/17 Polyethylene Glycol 3350 [Miralax 17 gm PO DAILY 07/08/17 119 gm Btl -] Prednisone 5 mg PO DAILY 07/08/17 Sitagliptin Phosphate [Januvia] 100 mg PO DAILY 07/08/17 Sodium Bicarbonate - 2 tab PO BID 07/08/17 Insulin (Levemir) [Levemir Vial] 35 unit SQ HS #1 vial 08/07/17 Cinacalcet HCl [Sensipar -] 30 mg PO DAILY 12/09/17 metFORMIN XR [Glucophage Xr -] 750 mg PO BID 12/09/17 Piperacillin/Tazob 3.375 gm [Zosyn 3.375 gm IVPB Q8H-IV 42 Days #126 12/13/17 -] vial Vancomycin HCl in Dextrose 5 % 1 gm IV ASDIR 42 Days #42 12/13/17 [Vancomycin 1 Gram/250 ml-D5w] plast..bag Amlodipine Besylate [Norvasc -] 5 mg PO DAILY tablet 12/15/17 Lisinopril 5 mg PO DAILY #30 tablet 12/15/17 Laboratory Tests 12/12/17 12/13/17 12/14/17 06:00 06:10 06:10 Random Vancomycin 16.8 L 7.3 L Vancomycin Pre-Dose 17.0 L 12/15/17 06:00 Random Vancomycin 5.7 L Vancomycin Pre-Dose ASSESSMENT AND PLAN: 67 y/o man with h/o DM , HTN, CAD, ESRD s/p renal transplant, PVD, s/p angiogram /atherectomy/and angioplasty 08/24, chronic R foot ulcer and OM who presented with fever and draining wound on R foot. # Infected diabetic foot ulcer with OM ,charcot foot on vanco , repeat the level , ID and railway traction line worker on the case. con. terminal clerk abx. vanc and zosyn. (total of 6 weeks ) , will need a PICC line and send the patient to rehab. need CRP, ESR, CMP and CBC weekly while on ABx. Waiting [facility] placement. Continue Santyl as per railway traction line worker. # GERALDINE : resolved, was probably volume depletion , follow tacrulimus level . # H/o ESRD s/p renal transplant. stable renal function, cont txment as per Nephro , TAcro level is pending. # DM: Levemir HS and SSI # PVD: cont ASA and plavix # HTN: cont meds
[2017-12-15] MEDS: ATORVASTATIN CA 10 MG TABLET (FP) PO SCH (21:39)
[2017-12-15] MEDS: INSULIN (LEVEMIR) 100 UNITS/ML UNITS SQ SCH (21:40)
[2017-12-16] MEDS ORDERED: PIPERACILLIN/TAZOBACTAM 3.375 GM VIAL IVPB ONE ×2 (02:18→09:12)
[2017-12-16] MEDS ORDERED: DEXTROSE 5%-WATER - 50 ML IVPB ONE ×2 (02:19→09:12)
[2017-12-16] MEDS: PIPERACILLIN/TAZOB 3.375 GM 3.375 GM in DEXTROSE 5%-WATER - 50 ML IVPB SCH ×2 (02:24→09:18)
[2017-12-16] MEDS: INSULIN SLIDING SCALE (NOVOLOG) 1 VIAL SQ SCH ×2 (06:17→12:23)
[2017-12-16 09:18] VITALS: BP 138/54; PULSE 52; TEMP 98.5
[2017-12-16] MEDS: CLOPIDOGREL BISULFATE 75 MG TABLET (FP) PO SCH (09:18)
[2017-12-16] MEDS: predniSONE 5 MG TABLET (UD) PO SCH (09:18)
[2017-12-16] MEDS: POLYETHYLENE GLYCOL 3350 119 GM BTL PO SCH (09:18)
[2017-12-16] MEDS: ASPIRIN 325 MG TABLET PO SCH (09:18)
[2017-12-16] MEDS: TAMSULOSIN HCL 0.4 MG CAP PO SCH (09:18)
[2017-12-16] MEDS: RANITIDINE HCL 150 MG TABLET (FP) PO SCH (09:18)
[2017-12-16] MEDS: ISOSORBIDE MONONITRATE 60 MG TAB.SR.24H (FP) PO SCH (09:18)
[2017-12-16] MEDS: NEBIVOLOL 10 MG TABLET (FP) PO SCH (09:19)
[2017-12-16] MEDS: azaTHIOprine 50 MG TABLET PO SCH (09:20)
[2017-12-16] MEDS: TACROLIMUS ANHYDROUS 1 MG CAPSULE PO SCH (09:20)
[2017-12-16] MEDS: COLLAGENASE CLOSTRIDIUM HIST. 30 GRAMS TUBE TP SCH (09:23)
[2017-12-16] MEDS: BACITRACIN 15 GM TUBE TOPICAL OINTMENT TP SCH (09:24)
[2017-12-16] MEDS ORDERED: amLODIPine BESYLATE 5 MG TABLET (FP) PO SCH (10:00)
--- NOTE | 2017-12-16 12:17 | PN ---
Progress Note, Physician Chief Complaint: The patient seen in his room. For PICC line placement History of Present Illness: 67 year old gentleman with hx of ESRD s/p DDRT (2013), DM, Hypertension , PVD, LE wounds who presented with right foot wound suspected to be a diabetic foot wound / osteomylitis. In need of prolonged IV abx. - Current Medication List Current Medications: Active Medications Amlodipine Besylate (Norvasc -) [address] [facility] Last Admin: 12/16/17 09:18 Dose: 5 mg Aspirin (Asa -) [address] [facility] Last Admin: 12/16/17 09:18 Dose: 325 mg Atorvastatin Calcium (Lipitor -) [address] [facility] Last Admin: 12/15/17 21:39 Dose: 10 mg Azathioprine (Imuran -) [address] [facility] Last Admin: 12/16/17 09:20 Dose: 150 mg Bacitracin (Bacitracin -) [address] [facility] Last Admin: 12/16/17 09:24 Dose: 1 applic Clopidogrel Bisulfate (Plavix -) [address] [facility] Last Admin: 12/16/17 09:18 Dose: 75 mg Collagenase (Santyl -) [address] [facility]; Protocol Last Admin: 12/16/17 09:23 Dose: 1 applic Ergocalciferol (Drisdol -) 50,000 unit PO Th@1000 [facility] Last Admin: 12/15/17 11:43 Dose: 50,000 unit IV Flush (Picc Line Flush) 8 ml IVPUSH PRN PRN PRN Reason: Protocol Piperacillin Sod/Tazobactam (Sod 3.375 gm/ Dextrose) 50 mls @ 100 mls/hr IVPB Q8H-IV [facility]; Protocol Last Admin: 12/16/17 09:18 Dose: 100 mls/hr Vancomycin HCl (Vancomycin (Pre-Docked)) 1,000 mg in 250 mls @ 166.667 mls/hr IVPB Q24H [facility]; Protocol Last Admin: 12/15/17 17:58 Dose: 166.667 mls/hr Insulin Aspart (Novolog Vial Sliding Scale -) [address] [facility]; Protocol Last Admin: 12/16/17 06:17 Dose: Not Given Insulin Detemir (Levemir Vial) 35 units SQ [facility] Last Admin: 12/15/17 21:40 Dose: 35 units Isosorbide Mononitrate (Imdur -) [address] [facility] Last Admin: 12/16/17 09:18 Dose: 60 mg Nebivolol (Bystolic -) [address] [facility] Last Admin: 12/16/17 09:19 Dose: 20 mg Polyethylene Glycol (Miralax (For Daily Use) -) [address] [facility] Last Admin: 12/16/17 09:18 Dose: 17 gm Prednisone (Deltasone -) [address] [facility] Last Admin: 12/16/17 09:18 Dose: 5 mg Ranitidine HCl (Zantac -) [address] [facility] Last Admin: 12/16/17 09:18 Dose: 150 mg Tacrolimus (Prograf) [address] [facility] Last Admin: 12/16/17 09:20 Dose: 4 mg Tamsulosin HCl (Flomax -) 0.4 mg PO 0830,2200 [facility] Last Admin: 12/16/17 09:18 Dose: 0.4 mg - Objective Vital Signs: Vital Signs Temperature 98.5 F 12/16/17 09:17 Pulse Rate 52 L 12/16/17 09:17 Respiratory Rate 18 12/16/17 09:17 Blood Pressure 138/54 L 12/16/17 09:17 O2 Sat by Pulse Oximetry (%) 97 12/16/17 09:00 Constitutional: Yes: No Distress Eyes: Yes: Conjunctiva Clear HENT: Yes: Normocephalic Neck: Yes: Trachea Midline Cardiovascular: Yes: Regular Rate and Rhythm, S1, S2 Respiratory: Yes: CTA Bilaterally, Diminished Gastrointestinal: Yes: Normal Bowel Sounds Genitourinary: No: Bladder Distention, CVA Tenderness - Left, CVA Tenderness - Right Peripheral Pulses WNL: No Neurological: Yes: Alert Labs: CBC, BMP 12/15/17 06:00 12/15/17 06:00 INR, PTT INR 0.97 (0.83-1.09) 12/08/17 18:14 Problem List - Problems (1) Diabetes mellitus Code(s): E11.9 - TYPE 2 DIABETES MELLITUS WITHOUT COMPLICATIONS (2) Diabetic foot ulcer Code(s): E11.621 - TYPE 2 DIABETES MELLITUS WITH FOOT ULCER; L97.509 - NON- PRESSURE CHRONIC ULCER OTH PRT UNSP FOOT W UNSP SEVERITY Qualifiers: Diabetic foot ulcer location: midfoot Diabetes mellitus type: type 2 Laterality: right Non-pressure ulcer stage: unspecified non-pressure ulcer stage Qualified Code(s): E11.621 - Type 2 diabetes mellitus with foot ulcer; L97.419 - Non-pressure chronic ulcer of right heel and midfoot with unspecified severity (3) Osteomyelitis Code(s): M86.9 - OSTEOMYELITIS, UNSPECIFIED Qualifiers: Osteomyelitis type: other chronic Osteomyelitis location: foot Laterality : right Qualified Code(s): M86.671 - Other chronic osteomyelitis, right ankle and foot (4) CAD (coronary artery disease) Code(s): I25.10 - ATHSCL HEART DISEASE OF [place] CORONARY ARTERY W/O ANG PCTRS Qualifiers: Coronary Disease-Associated Artery/Lesion type: [place] artery [place] vs. transplanted heart: [place] heart Associated angina: without angina Qualified Code(s): I25.10 - Atherosclerotic heart disease of [place] coronary artery without angina pectoris (5) Diabetic peripheral vascular disease Code(s): E11.51 - TYPE 2 DIABETES W DIABETIC PERIPHERAL ANGIOPATH W/O [place] (6) Hypertension Code(s): I10 - ESSENTIAL (PRIMARY) HYPERTENSION Qualifiers: Hypertension type: essential hypertension Qualified Code(s): I10 - Essential (primary) hypertension (7) Status post kidney transplant Code(s): Z94.0 - KIDNEY TRANSPLANT STATUS (8) S/P coronary artery stent placement Code(s): Z95.5 - PRESENCE OF CORONARY ANGIOPLASTY IMPLANT AND GRAFT Assessment/Plan 67 year old gentleman with hx of ESRD s/p DDRT (2013), DM, Hypertension , PVD, LE wounds who presented with right foot wound suspected to be a diabetic foot wound or osteomylitis The patient will require prolonged IV antibiotics. For placement of PICC linetoday. Renal functions stable and at his baseline. will follow with you. Thank you. Layla Olivas MD
--- NOTE | 2017-12-16 14:02 | DS ---
Physical Exam: SUBJECTIVE: Patient seen and examined. No acute events overnight. No complaints. OBJECTIVE: Vital Signs Period Temp Pulse Resp BP Sys/[place] Pulse Ox Last 24 Hr 97.9 F-98.5 F 51-67 16-18 138-186/42-74 96-97 PHYSICAL EXAM GENERAL: The patient is awake, alert, and fully oriented, in no acute distress. EYES: Sclera anicteric, conjunctiva clear. No ptosis. ENT: Ears normal, nares patent, moist mucous membranes. LUNGS: Breath sounds equal, clear to auscultation bilaterally, no wheezes, no crackles, wet-sounding cough, no accessory muscle use. HEART: Regular rate and rhythm, S1, S2 without murmur ABDOMEN: Soft, nontender, nondistended, normoactive bowel sounds, no guarding, no rebound EXTREMITIES: 1+ posterior tibial pulses, no calf tenderness, warm, well-perfused , no edema. NEUROLOGICAL: Normal speech, gait not observed. PSYCH: Delayed understanding SKIN: Warm, dry, normal turgor LABS Laboratory Results - last 24 hr 12/15/17 12/15/17 12/16/17 16:43 21:37 06:00 POC Glucometer 170 295 Random Vancomycin 12.5 L 12/16/17 12/16/17 06:14 12:01 POC Glucometer 97 94 Random Vancomycin HOSPITAL COURSE: Date of Admission:12/08/17 Date of Discharge: 12/16/17 Pt. was admitted for non-healing diabetic foot ulcer with discharge. Foot X-ray and MRI were consistent Osteomyelitis. Pt. treated with IV Vancomycin and Zosyn. Pt.'s chronic conditions managed with titrated doses of home medicines. Hospital course discussed with and agreed upon with Pt. and medical staff. Minutes to complete discharge: 32 Discharge Summary Reason For Visit: DIABETIC FOOT ULCER,STATUS POST KIDNEY TRANSPLANT, Condition: Good - Instructions Diet, Activity, Other Instructions: You were admitted for a diabetic foot ulcer We started you on intravenous antibiotics( Vancomycin and Zosyn) to be given daily for 6 weeks Please continue with Vancomycin, ONCE a day and Zosyn 3 times a day (every 8 hours). Please get a Random Vancomycin level once a day. If Vancomycin is within therapeutic range Please get Vancomycin Trough (30 min before Vancomycin dose), CRP, ESR, CMP and CBC labs drawn every week. We have started you on another medication for your blood pressure, Lisinopril 5mg ONCE a Day Please take as prescribed. Please follow up with your Primary Care Physician in 1 week, for BP medication adjustments. Please Follow up with Wound Care upon discharge for dressing changes and Hyperbaric chamber treatments. Please follow up with your [employer] And B Gang Worker (Dr. Parson), at [facility] within 1 week for further management of your medications. Please return to the ED if you experience fever, chills, purulence, increased redness of ulcer, decreased sensation in foot or severe pain in left foot. Referrals: Víctor Mclain MD [Staff Physician] - Eric Flores MD [Non Staff, Medical] - Sherry Monson DPM [Staff Physician] - Disposition: [facility] - Home Medications Comprehensive Discharge Medication List: Ambulatory Orders Clopidogrel Bisulfate [Plavix -] 75 mg PO DAILY 04/24/15 Ranitidine [Zantac -] 150 mg PO DAILY 04/24/15 Simvastatin [Zocor -] 20 mg PO HS 04/24/15 Tacrolimus [Astagraf Xl] 9 mg PO DAILY 04/24/15 Tamsulosin HCl [Flomax -] 0.4 mg PO BID 04/24/15 Aspirin [ASA -] 325 mg PO DAILY 07/08/17 Azathioprine [Imuran] 150 mg PO DAILY 07/08/17 Ergocalciferol (Vitamin D2) [Vitamin D2] 50,000 unit PO MONTHLY 07/08/17 Isosorbide Mononitrate [Isosorbide Mononitrate ER] 60 mg PO DAILY 07/08/17 Nebivolol HCl [Bystolic] 20 mg PO DAILY 07/08/17 Polyethylene Glycol 3350 [Miralax 119 gm Btl -] 17 gm PO DAILY 07/08/17 Prednisone 5 mg PO DAILY 07/08/17 Sitagliptin Phosphate [Januvia] 100 mg PO DAILY 07/08/17 Sodium Bicarbonate - 2 tab PO BID 07/08/17 Insulin (Levemir) [Levemir Vial] 35 unit SQ HS #1 vial 08/07/17 Cinacalcet HCl [Sensipar -] 30 mg PO DAILY 12/09/17 metFORMIN XR [Glucophage Xr -] 750 mg PO BID 12/09/17 Piperacillin/Tazob 3.375 gm [Zosyn -] 3.375 gm IVPB Q8H-IV 42 Days #126 vial 07/25 Vancomycin HCl in Dextrose 5 % [Vancomycin 1 Gram/250 ml-D5w] 1 gm IV ASDIR 42 Days #42 plast..bag 12/13/17 Amlodipine Besylate [Norvasc -] 5 mg PO DAILY tablet 12/15/17 Lisinopril 5 mg PO DAILY #30 tablet 12/15/17 This patient is new to me today: No Emergency Visit: Yes ED Registration Date: 12/08/17 Care time: The patient presented to the Emergency Department on the above date and was hospitalized for further evaluation of their emergent condition. Critical Care patient: No - Discharge Referral Referred to [facility] Med P.C.: No
--- NOTE | 2017-12-16 16:04 | PN ---
Teaching Attending Note Name of Resident: Gama Myles ATTENDING PHYSICIAN STATEMENT I saw and evaluated the patient. I reviewed the resident's note and discussed the case with the resident. I agree with the resident's findings and plan as documented. SUBJECTIVE: Patient is comfortable with no acute distress. No nausea or vomiting, no headache. OBJECTIVE: Vital Signs Temperature 98.5 F 12/16/17 09:17 Pulse Rate 52 L 12/16/17 09:17 Respiratory Rate 18 12/16/17 09:17 Blood Pressure 138/54 L 12/16/17 09:17 O2 Sat by Pulse Oximetry (%) 97 12/16/17 09:00 GENERAL: The patient is awake, alert, and fully oriented, in no acute distress. EYES: PERRL, extraocular movements intact, sclera anicteric, conjunctiva clear. ENT: Ears normal, oropharynx clear without exudates, moist mucous membranes. NECK: Trachea midline, full range of motion, supple. LUNGS: Breath sounds equal, clear to auscultation bilaterally, no wheezes, no crackles, no accessory muscle use. HEART: Regular rate and rhythm, S1, S2 without murmur ABDOMEN: Soft, nontender, nondistended, bowel sounds sluggish, no guarding, no rebound EXTREMITIES: right foot osteo, positive for posterior tibial pulses b/l, warm, no edema. NEUROLOGICAL: Normal speech, gait not observed. PSYCH: Normal mood, normal affect. SKIN: Warm, dry, normal turgor, no rashes or lesions noted CBCD WBC 3.9 K/mm3 (4.0-10.0) L 12/15/17 06:00 RBC 4.27 M/mm3 (4.00-5.60) 12/15/17 06:00 Hgb 11.3 GM/dL (11.7-16.9) L 12/15/17 06:00 Hct 35.7 % (35.4-49) 12/15/17 06:00 MCV 83.6 fl (80-96) 12/15/17 06:00 MCHC 31.6 g/dl (32.0-35.9) L 12/15/17 06:00 RDW 17.9 % (11.9-15.9) H 12/15/17 06:00 Plt Count 277 K/MM3 (134-434) 12/15/17 06:00 MPV 7.0 fl (7.5-11.1) L 12/15/17 06:00 CMP Sodium 140 mmol/L (136-145) 12/15/17 06:00 Potassium 5.0 mmol/L (3.5-5.1) 12/15/17 06:00 Chloride 107 mmol/L (98-107) 12/15/17 06:00 Carbon Dioxide 25 mmol/L (21-32) 12/15/17 06:00 Anion Gap 8 MMOL/L (8-16) 12/15/17 06:00 BUN 20 mg/dL (7-18) H 12/15/17 06:00 Creatinine 1.2 mg/dL (0.55-1.3) 12/15/17 06:00 Creat Clearance w eGFR > 60 (>60) 12/15/17 06:00 Random Glucose 144 mg/dL (74-106) H 12/15/17 06:00 Calcium 9.7 mg/dL (8.5-10.1) 12/15/17 06:00 Total Bilirubin 0.4 mg/dL (0.2-1) 12/09/17 06:25 AST 10 U/L (15-37) L 12/09/17 06:25 ALT 9 U/L (13-61) L 12/09/17 06:25 Alkaline Phosphatase 69 U/L (45-117) 12/09/17 06:25 Total Protein 6.4 g/dl (6.4-8.2) 12/09/17 06:25 Albumin 3.0 g/dl (3.4-5.0) L 12/09/17 06:25 CARDIAC ENZYMES Troponin I < 0.02 ng/ml (0.00-0.05) 12/10/17 16:25 Laboratory Tests 12/12/17 12/13/17 12/14/17 06:00 06:10 06:10 Random Vancomycin 16.8 L 7.3 L Vancomycin Pre-Dose 17.0 L Tacrolimus 12/15/17 12/15/17 12/16/17 06:00 06:00 06:00 Random Vancomycin 5.7 L 12.5 L Vancomycin Pre-Dose Tacrolimus Pending Home Medications Medication Instructions Recorded Clopidogrel Bisulfate [Plavix -] 75 mg PO DAILY 04/24/15 Ranitidine [Zantac -] 150 mg PO DAILY 04/24/15 Simvastatin [Zocor -] 20 mg PO HS 04/24/15 Tacrolimus [Astagraf Xl] 9 mg PO DAILY 04/24/15 Tamsulosin HCl [Flomax -] 0.4 mg PO BID 04/24/15 Aspirin [ASA -] 325 mg PO DAILY 07/08/17 Azathioprine [Imuran] 150 mg PO DAILY 07/08/17 Ergocalciferol (Vitamin D2) 50,000 unit PO MONTHLY 07/08/17 [Vitamin D2] Isosorbide Mononitrate [Isosorbide 60 mg PO DAILY 07/08/17 Mononitrate ER] Nebivolol HCl [Bystolic] 20 mg PO DAILY 07/08/17 Polyethylene Glycol 3350 [Miralax 17 gm PO DAILY 07/08/17 119 gm Btl -] Prednisone 5 mg PO DAILY 07/08/17 Sitagliptin Phosphate [Januvia] 100 mg PO DAILY 07/08/17 Sodium Bicarbonate - 2 tab PO BID 07/08/17 Insulin (Levemir) [Levemir Vial] 35 unit SQ HS #1 vial 08/07/17 Cinacalcet HCl [Sensipar -] 30 mg PO DAILY 12/09/17 metFORMIN XR [Glucophage Xr -] 750 mg PO BID 12/09/17 Piperacillin/Tazob 3.375 gm [Zosyn 3.375 gm IVPB Q8H-IV 42 Days #126 12/13/17 -] vial Vancomycin HCl in Dextrose 5 % 1 gm IV ASDIR 42 Days #42 12/13/17 [Vancomycin 1 Gram/250 ml-D5w] plast..bag Amlodipine Besylate [Norvasc -] 5 mg PO DAILY tablet 12/15/17 Lisinopril 5 mg PO DAILY #30 tablet 12/15/17 ASSESSMENT AND PLAN: Patient is a 67 y/o man with h/o DM , HTN, CAD, ESRD s/p renal transplant, PVD, s/p angiogram /atherectomy/and angioplasty 08/24, chronic R foot ulcer and OM who presented with fever and draining wound on R foot. # Infected right diabetic foot ulcer with OM On VAnco and Zosyn as per ID , patient needs jail abx. vanc and zosyn. (total of 6 weeks ) ,s/p PICC line and patient is going to rehab. need CRP, ESR, CMP and CBC weekly while on ABx. Continue Santyl as per sales engagement manager. # GERALDINE : resolved, was probably volume depletion ,pending tacrulimus level . # H/o ESRD s/p renal transplant. stable renal function, cont txment as per Nephro , TAcro level is still pending. # DM: Levemir HS and SSI # PVD: cont ASA and plavix # HTN: cont meds discharge patient to rehab for total of 6 weeks of IV zosyn and Vancomycin , weekly cmp, mag,phos, cbc.
== END 2017-12-16 13:17 | DRG 638 ==
LOC: JER 17:09 → JERBED 17:52 → J7W 12-09 18:00
PROVIDERS: ADMIT Internal Medicine; ATTEND Internal Medicine
PROC: 02HV33Z Insertion of Infusion Device into Superior Vena Cava, Percutaneous Approach (ICD-10-PCS; principal; 2017-12-16)
PROC: B518ZZA Fluoroscopy of Superior Vena Cava, Guidance (ICD-10-PCS; 2017-12-16)
PROC: B548ZZA Ultrasonography of Superior Vena Cava, Guidance (ICD-10-PCS; 2017-12-16)
DX: E11.69 Type 2 diabetes mellitus with other specified complication (principal); Z94.0 Kidney transplant status; M86.671 Other chronic osteomyelitis, right ankle and foot; L03.115 Cellulitis of right lower limb; E11.51 Type 2 diabetes mellitus with diabetic peripheral angiopathy without gangrene; B95.2 Enterococcus as the cause of diseases classified elsewhere; N40.0 Benign prostatic hyperplasia without lower urinary tract symptoms; B96.29 Other Escherichia coli [E. coli] as the cause of diseases classified elsewhere; B96.89 Other specified bacterial agents as the cause of diseases classified elsewhere; B95.62 Methicillin resistant Staphylococcus aureus infection as the cause of diseases classified elsewhere; B37.2 Candidiasis of skin and nail; E11.65 Type 2 diabetes mellitus with hyperglycemia; E11.621 Type 2 diabetes mellitus with foot ulcer; E11.610 Type 2 diabetes mellitus with diabetic neuropathic arthropathy; I10 Essential (primary) hypertension; Z79.84 Long term (current) use of oral hypoglycemic drugs; I25.10 Atherosclerotic heart disease of native coronary artery without angina pectoris; Z95.5 Presence of coronary angioplasty implant and graft; Z79.4 Long term (current) use of insulin; E78.5 Hyperlipidemia, unspecified; D63.8 Anemia in other chronic diseases classified elsewhere
CPT/HCPCS: 36415; 36569; 71045-TC-FY; 73630-TC-RT-FY; 73718-TC; 77001-TC-FY; 80048; 80053; 80197; 81003; 82803; 82962; 83036; 83605; 83735; 84100; 84484; 85025; 85027; 85610; 85651; 85730; 86140; 87040; 87070; 87077; 87186; 87205; 93005; 93010; 93925-TC; 93970-TC; 97116-GP; 97161-GP; 99285-25; C1751; G0480; J1644; J7030

== ENCOUNTER 2018-06-04 11:58 | Inpatient (IN) | payer OTHER ==
--- NOTE | 2018-06-04 12:05 | PDOC ---
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 67 year old male with a history of NIDDM, ESRD s/p cadaveric kidney transplant, chronic osteo and CAD s/p stent (06/24), chronic right foot ulcer, L. AVF from dialysis in the past, who presents to the ER BIB residential EMS from [facility] after a fall which happened at 6 AM today. He states he hit his head when he fell. He denies losing consciousness during the fall. He reports he is not currently in any pain and does not know why he was brought to the hospital. He states they gave him breakfast and coffee this morning as usual but they gave him a bad sugar so he was walking with his walker to his room to get the good sweetener when he experienced what he states was a mechanical fall bc the walker tilted and he lost his balance. He denies hitting anything other than his head during the fall. - Patient denies taking any blood thinner. Denies experiencing any LOC. He denies having experienced chest pain, lightheadedness, dizziness, nausea, or vomiting before the fall. Denies recent fevers, chills, or infections. PCP: Follows at [place]. Mainly sees Dr. Parson his renal transplant doctor. Renal transplant Dr: Dr. Parson [phone] PSH: Abdominal Herniorrhaphy, cadaveric renal transplant 2013, cardiac stent 2017, R. Metatarsal amputation and L. leg surgery. Social Hx: Denies smoking, drinking, or other substance usage. Allergies: NKA, NKDA Past History - Past Medical History Allergies/Adverse Reactions: Allergies Allergy/AdvReac Type Severity Reaction Status Date / Time No Known Allergies Allergy Verified 12/08/17 17:31 Home Medications: Ambulatory Orders Ranitidine [Zantac -] 150 mg PO DAILY 04/24/15 Tacrolimus [Astagraf Xl] 3 mg PO BID 04/24/15 Tamsulosin HCl [Flomax -] 0.8 mg PO BID 04/24/15 Azathioprine [Imuran] 150 mg PO DAILY 07/08/17 Isosorbide Mononitrate [Isosorbide Mononitrate ER] 20 mg PO Q8H 07/08/17 Prednisone 5 mg PO DAILY 07/08/17 Amlodipine Besylate [Norvasc -] 10 mg PO DAILY 06/04/18 Finasteride 5 mg PO DAILY 06/04/18 Gabapentin 100 mg PO BID 06/04/18 Insulin Glargine,Hum.rec.anlog [Basaglar Kwikpen U-100] 12 unit SQ DAILY Insulin Lispro [Humalog] 0 unit SQ ASDIR 06/04/18 Magnesium 400 mg PO BID 06/04/18 Metoprolol Tartrate 25 mg PO Q12H 06/04/18 Anemia: No Asthma: No Cancer: No Cardiac Disorders: Yes (CAD, stent) CVA: No COPD: No CHF: No DVT: No Dementia: No Diabetes: Yes Dialysis: No (kidney transplatn,lt arm fistula) GI Disorders: Yes Disorders: No HTN: Yes Hypercholesterolemia: Yes Liver Disease: No Seizures: No Thyroid Disease: No - Surgical History Abdominal Surgery: Yes (hernia) Appendectomy: No Cardiac Surgery: Yes (stent placement) Cholecystectomy: No Lung Surgery: No Neurologic Surgery: No Orthopedic Surgery: Yes (debridement or R foot diabetic ulcer) - Suicide/Smoking/Psychosocial Hx Smoking History: Never smoked Have you smoked in the past 12 months: No Hx Alcohol Use: No Drug/Substance Use Hx: No Substance Use Type: None Hx Substance Use Treatment: No Review of Systems - Review of Systems Able to Perform ROS?: Yes Comments:: CONSTITUTIONAL: Absent: fever, no chills, no fatigue EYES: Absent: visual changes ENT: Absent: ear pain, no sore throat CARDIOVASCULAR: Absent: chest pain, no palpitations RESPIRATORY: Absent: cough, no SOB GI: Absent: abdominal pain, no nausea, no vomiting, no constipation, no diarrhea GENITOURINARY: Absent: dysuria, no frequency, no hematuria MUSKULOSKELETAL: Absent: back pain, no arthralgia, no myalgia SKIN: Absent: rash NEURO: Absent: headache *Physical Exam - Physical Exam Comments: GENERAL: Well-appearing, well-nourished. No apparent distress. HEENT: Normocephalic, atraumatic. PERRL, EOM intact. CARDIOVASCULAR: Normal S1, S2. Regular rate and rhythm. PULMONARY: No evidence of respiratory distress. Lungs clear to auscultation bilaterally. No wheezing, rales or rhonchi. ABDOMEN: Soft, non-distended, non-tender. EXTREMITIES: limited ROM in lower extremities. SKIN: Warm, dry. No rash NEUROLOGICAL: No focal neurological deficits. Heart Score/ECG Review - Troponin Troponin: </= normal limit - ECG Intrepretation Rhythm: Regular Rhythm - Iaeger Iaeger: Normal - P and [place] Delta Wave(s) Present: No WPW: No - ST and T Non Specific ST-T Wave changes: No Flattened T Waves: Yes Prolonged Q-T Interval: No Comment:: Mild flattening of T wave in aVL - ECG Impressions Normal ECG: No Non-specific ST Elevation: No Ischemic Changes: No Bradycardia: No ED Treatment Course - LABORATORY CBC & Chemistry Diagram: 06/04/18 12:47 06/04/18 12:47 - RADIOLOGY Radiograph Interpretation: Head CT: There is no evidence of acute intracranial hemorrhage, mass lesions or infarctions. There is a mild degree of diffuse cerebral atrophy with sulcal widening and ventricular dilatation. There is no evidence of fracture or acute bony pathology. IMPRESSION: No evidence of acute intracranial pathology. CXR: A single AP view of the chest reveals a weak inspiration when compared to 12/08/2017. With a weak inspiration there is a large heart. There is a sclerotic knob as before. The hilar markings appear normal. The lungs are clear. The angles are sharp. The bones and soft tissues are intact. Impression: Weak inspiratory effort with resultant large heart but no sign of an acute chest process. Medical Decision Making - Medical Decision Making 67 year old male with a history of NIDDM, ESRD s/p cadaveric kidney transplant, chronic osteo and CAD s/p stent (06/24), chronic right foot ulcer, L. AVF from dialysis in the past, who presents to the ER BIB residential EMS from [facility] after a fall which happened at 6 AM today. Hit his head, denies taking any blood thinners. Denies experiencing any LOC. He denies having experienced chest pain, lightheadedness, dizziness, nausea, or vomiting before the fall. Denies recent fevers, chills, or infections. VS: WNL DDx IBNLT: Mechanical fall, syncope, seizure, Brain bleed - SAH, epidural, subdural, PNA, UTI, electrolyte/metabolic disturbance Plan: Cbc, Cmp, Trop, UA, CXR, EKG, Head CT, re-assess. - CBC, trop normal CXR: no acute process Head CT: Unremarkable. EKG: Normal sinus with no evidence of heart block or arrhythmia CMP Sodium 135 mmol/L (136-145) L 06/04/18 12:47 Potassium 4.9 mmol/L (3.5-5.1) 06/04/18 12:47 Chloride 100 mmol/L (98-107) 06/04/18 12:47 Carbon Dioxide 29 mmol/L (21-32) 06/04/18 12:47 Anion Gap 6 MMOL/L (8-16) L 06/04/18 12:47 BUN 28 mg/dL (7-18) H 06/04/18 12:47 Creatinine 1.1 mg/dL (0.55-1.3) 06/04/18 12:47 Creat Clearance w eGFR 66.77 (>60) 06/04/18 12:47 Random Glucose 413 mg/dL (74-106) H* 06/04/18 12:47 Calcium 10.1 mg/dL (8.5-10.1) 06/04/18 12:47 Total Bilirubin 0.4 mg/dL (0.2-1) 06/04/18 12:47 AST 21 U/L (15-37) 06/04/18 12:47 ALT 28 U/L (13-61) 06/04/18 12:47 Alkaline Phosphatase 108 U/L (45-117) 06/04/18 12:47 Troponin I < 0.02 ng/ml (0.00-0.05) 06/04/18 12:47 Total Protein 6.9 g/dl (6.4-8.2) 06/04/18 12:47 Albumin 3.1 g/dl (3.4-5.0) L 06/04/18 12:47 CMP shows elevated glucose and mildly elevated BUN - Will place an IV, hydrate with 1L of NS, give 6 units of IV insulin and then re-assess. - 1.5 hours after 6 units of insulin fingerstick - 456, down from 518. Will get a BMP in 30 minutes. Urine shows patient has a UTI - Considering patient only has 1 kidney and has a cadaveric transplant will obtain a Urine culture and admit the patient for UTI, fall and collapse, and hyperglycemia *DC/Admit/Observation/Transfer Diagnosis at time of Disposition: UTI (urinary tract infection), Renal transplant recipient, Fall, Hyperglycemia - Discharge Dispostion Condition at time of disposition: Stable Decision to Admit order: Yes - Referrals Referrals: ON STAFF,NOT [Primary Care Provider] - - Patient Instructions - Post Discharge Activity
[2018-06-04 12:52] LABS: BASO % 0.6 % (0-2.0); EOS % 0.5 % (0-4.5); HEMATOCRIT 36.1 % (35.4-49); HEMOGLOBIN 11.5 GM/dL (11.7-16.9); LYMPH % 16.6 % (8-40); MCH 27.1 pg (25.7-33.7); MCHC 31.7 g/dl (32.0-35.9); MEAN CELL VOLUME 85.4 fl (80-96); MEAN PLT VOLUME 6.9 fl (7.5-11.1); NEUT % 71.3 % (42.8-82.8); PLATELET COUNT 322 K/MM3 (134-434); RBC 4.23 M/mm3 (4.00-5.60); RDW 20.5 % (11.9-15.9)
[2018-06-04 13:16] LABS: ANISOCYTOSIS 1+; MACROCYTOSIS 0; OVALOCYTE 1+; PLATELET ESTIMATE NORMAL
[2018-06-04 13:24] LABS: ALBUMIN 3.1 g/dl (3.4-5.0); ALK PHOS 108 U/L (45-117); ANION GAP 6 MMOL/L (8-16); BILIRUBIN,TOTAL 0.4 mg/dL (0.2-1); BLOOD UREA NITROGEN 28 mg/dL (7-18); CALCIUM 10.1 mg/dL (8.5-10.1); CHLORIDE 100 mmol/L (98-107); CO2 29 mmol/L (21-32); CREATININE 1.1 mg/dL (0.55-1.3); POTASSIUM 4.9 mmol/L (3.5-5.1); SGOT/AST 21 U/L (15-37); SGPT/ALT 28 U/L (13-61); SODIUM 135 mmol/L (136-145); TOT PROT 6.9 g/dl (6.4-8.2)
[2018-06-04 13:30] LABS: GLUCOSE,RANDOM 413 mg/dL (74-106)
[2018-06-04] MEDS ORDERED: SODIUM CHLORIDE 0.9% 500 ML INFUS.BAG IV ONE (13:54)
[2018-06-04] MEDS ORDERED: INSULIN REGULAR HUMAN 100 UNITS/ML *VIAL IVPUSH ONE ×2 (15:15→17:08)
--- NOTE | 2018-06-04 15:19 | EKG ---
Test Reason : Blood Pressure : / mmHG Vent. Rate : 075 BPM Atrial Rate : 075 BPM P-R Int : 166 ms QRS Dur : 086 ms QT Int : 386 ms P-R-T Axes : 058 -27 047 degrees QTc Int : 431 ms NORMAL SINUS RHYTHM NORMAL ECG WHEN COMPARED WITH ECG OF 10-DEC-2017 15:45, NO SIGNIFICANT CHANGE WAS FOUND Confirmed by TONIA ALEX MD ([id number]) on 06/04/2018 3:19:48 PM Referred By: Confirmed By:TONIA ALEX MD
[2018-06-04] MEDS ORDERED: INSULIN REGULAR HUMAN 100 UNITS/ML *VIAL ONE ×2 (15:24→17:16)
--- NOTE | 2018-06-04 15:26 | PDOC ---
Documentation entered by Cait Lemons SCRIBE, acting as scribe for Nicolasa Gambino MD. Nicolasa Gambino MD: This documentation has been prepared by the Cristo vargas Daisy, SCRIBE, under my direction and personally reviewed by me in its entirety. I confirm that the documentation accurately reflects all work, treatment, procedures, and medical decision making performed by me. Attending Attestation - Resident Resident Name: Silviano Goncalves - ED Attending Attestation I have performed the following: I have examined & evaluated the patient, The case was reviewed & discussed with the resident, I agree w/resident's findings & plan - HPI HPI: 06/04/18 15:19 67 yo male h/o DM here from nursing facility for fall. pt states he was getting up to get sugar for his coffee because he didnt like the sugar they gave him, walked to his room and had a fall. denies loc. says his walker tilted. states happened around 7 hrs ago, after fall was able to ambulate back to breakfast, and then they sent to ed. pt states he did hit his head, denies any other pain, no sob no cp no palpitations. - Physicial Exam PE: 06/04/18 15:21 awake alert head atraumatic. no cervical spine tenderness. lungs clear bilaterally heart rrr no mrg abd soft nt nd ext wwp atraumatic, nontender. no midline spinal tenderness. skin warm and dry no abrasions no eccymosis. nuero moves all four ext 5/5. - Medical Decision Making 06/04/18 15:22 67 yo male here from nursing facilty s/p mechanical fall. plan ct head r/o ich. labs r/o anemia, electrolyte abnormality ekg ua. glucose noted to be elevated at 400's given iv hydration, and insulin. otherwise labs normal ct head unremarkable. Heart Score/ECG Review #1 ECG reviewed & interpreted by me at: 15:25 General ECG Interpretation: Sinus Rhythm, Normal Rate (75), Normal Intervals, No acute ischemic changes
[2018-06-04 15:29] LABS: EPI CELLS 0.2 /HPF (0-5/HPF); PH,URINE 6.5 (5.0-8.0); URINE APPEARANCE CLEAR; URINE BACTERIA 2407.4 /hpf (NEGATIVE); URINE BILIRUBIN NEGATIVE (NEGATIVE); URINE CASTS 1 /lpf (0-8); URINE COLOR YELLOW; URINE GLUCOSE (UA) 3+ (NEGATIVE); URINE KETONE NEGATIVE (NEGATIVE); URINE LEUK ESTERASE 1+ (NEGATIVE); URINE NITRITE POSITIVE (NEGATIVE); URINE PROTEIN NEGATIVE (NEGATIVE); URINE RBC 1 /hpf (0-4); URINE UROBILINOGEN 0.2 mg/dL (0.2-1.0); URINE WBC 35 /hpf (0-5)
[2018-06-04] MEDS ORDERED: CEFTRIAXONE 1,000 MG in DEXTROSE 5%-WATER - 50 ML IVPB ONE (19:46)
[2018-06-04] MEDS ORDERED: CEFTRIAXONE 1 GM/50 ML BAG ONE (19:54)
[2018-06-04 20:47] LABS: ANION GAP 6 MMOL/L (8-16); BLOOD UREA NITROGEN 25 mg/dL (7-18); CALCIUM 9.9 mg/dL (8.5-10.1); CHLORIDE 106 mmol/L (98-107); CO2 26 mmol/L (21-32); POTASSIUM 4.8 mmol/L (3.5-5.1); SODIUM 138 mmol/L (136-145)
[2018-06-04 20:49] LABS: GLUCOSE,RANDOM 352 mg/dL (74-106)
--- NOTE | 2018-06-04 22:12 | HP ---
Admitting History and Physical - Primary Care Physician PCP: Joesph Gilliland - Admission Chief Complaint: Mechanical Fall History of Present Illness: This is a 68 y/o man with a PMHx of NIDDM, ESRD s/p Cadaveric Renal Transplant, L-AVF (past dialysis), CAD s/p Stent 06/24, Chronic Osteomyelitis, Chronic Right Foot Ulcer. Who presents to the ED from [facility] s/p mechanical fall for evaluation. Patient is Gren[place] speaking [employer] used# [id number]. Patient reports ambulating with his walker to get sweetener for his coffee and tripping over his feet hitting his head, but denies LOC. Patient denies dizziness, SANTANA or worsening blurred vision. Patient denies fever, chills, cough, CP, palpitations , AP, N/V/D, constipation, dysuria. ER course is noted for: (1) Head CT- neg ICH (2) UA- +nitrate, +1 leukocyte esterase, 35 WBC (3) Chest Xray- no acute process (4) Glucose 413 History Source: Patient, Transfer Record Limitations to Obtaining History: Language Barrier (Grenadian) - Past Medical History Cardiovascular: Yes: HTN Renal/: Yes: Renal Failure, Other (Renal transplant) Endocrine: Yes: Diabetes Mellitus - Past Surgical History Past Surgical History: Yes: AV Fistula/Graft (Left), Kidney Transplant, Stent - Smoking History Smoking history: Never smoked Have you smoked in the past 12 months: No - Alcohol/Substance Use Hx Alcohol Use: No - Social History Usual Living Arrangement: Yes: [facility] ADL: Support Services History of Recent Travel: No Home Medications - Allergies Allergies/Adverse Reactions: Allergies Allergy/AdvReac Type Severity Reaction Status Date / Time No Known Allergies Allergy Verified 12/08/17 17:31 - Home Medications Home Medications: Ambulatory Orders Ranitidine [Zantac -] 150 mg PO DAILY 04/24/15 Tacrolimus [Astagraf Xl] 3 mg PO BID 04/24/15 Tamsulosin HCl [Flomax -] 0.8 mg PO BID 04/24/15 Azathioprine [Imuran] 150 mg PO DAILY 07/08/17 Isosorbide Mononitrate [Isosorbide Mononitrate ER] 20 mg PO Q8H 07/08/17 Prednisone 5 mg PO DAILY 07/08/17 Amlodipine Besylate [Norvasc -] 10 mg PO DAILY 06/04/18 Finasteride 5 mg PO DAILY 06/04/18 Gabapentin 100 mg PO BID 06/04/18 Insulin Glargine,Hum.rec.anlog [Basaglar Kwikpen U-100] 12 unit SQ DAILY Insulin Lispro [Humalog] 0 unit SQ ASDIR 06/04/18 Magnesium 400 mg PO BID 06/04/18 Metoprolol Tartrate 25 mg PO Q12H 06/04/18 Family Disease History - Family Disease History Family History: Unable to Obtain Review of Systems - Review of Systems Constitutional: reports: No Symptoms Eyes: reports: No Symptoms HENT: reports: No Symptoms Neck: reports: No Symptoms Cardiovascular: reports: No Symptoms Respiratory: reports: No Symptoms Gastrointestinal: reports: No Symptoms Genitourinary: reports: No Symptoms Breasts: reports: No Symptoms Reported Musculoskeletal: reports: No Symptoms Integumentary: reports: No Symptoms Neurological: reports: Unsteady Gait Endocrine: reports: No Symptoms Hematology/Lymphatic: reports: No Symptoms Psychiatric: reports: No Symptoms Physical Examination Vital Signs: Vital Signs Temperature 98.2 F 06/04/18 15:32 Pulse Rate 80 06/04/18 15:32 Respiratory Rate 20 06/04/18 15:32 Blood Pressure 152/62 06/04/18 15:32 O2 Sat by Pulse Oximetry (%) 98 06/04/18 15:32 Constitutional: Yes: No Distress, Calm, Thin Eyes: Yes: Conjunctiva Clear, PERRL HENT: Yes: WNL, Atraumatic, Normocephalic Neck: Yes: WNL, Supple, Trachea Midline Cardiovascular: Yes: Regular Rate and Rhythm, S1, S2 Respiratory: Yes: WNL, Regular, CTA Bilaterally Gastrointestinal: Yes: WNL, Normal Bowel Sounds, Soft Renal/: Yes: WNL Breast(s): Yes: WNL Musculoskeletal: Yes: WNL Edema: No Peripheral Pulses WNL: Yes Neurological: Yes: WNL, Alert, Oriented, Cran Nerves II-XII Intact ...Motor Strength: WNL Psychiatric: Yes: WNL, Alert, Oriented Labs: CBC, BMP 06/04/18 12:47 06/04/18 19:30 Problem List - Problems (1) UTI (urinary tract infection) Assessment/Plan: Continue to treat for complicated UTI secondary to s/p renal transplant UA- +nitrate, +1 leukocyte esterase, 35 WBC Urine Culture-pending Ceftriaxone given in ED, will continue awaiting official report Appreciate ID consult Code(s): N39.0 - URINARY TRACT INFECTION, SITE NOT SPECIFIED (2) Uncontrolled diabetes mellitus Assessment/Plan: Likely secondary to infection BGMs ISS HgbA1c in am Code(s): E11.65 - TYPE 2 DIABETES MELLITUS WITH HYPERGLYCEMIA (3) Renal transplant recipient Assessment/Plan: Continue home meds Code(s): Z94.0 - KIDNEY TRANSPLANT STATUS (4) CAD (coronary artery disease) Assessment/Plan: stable Continue BB, statin Code(s): I25.10 - ATHSCL HEART DISEASE OF [place] CORONARY ARTERY W/O ANG PCTRS Qualifiers: Coronary Disease-Associated Artery/Lesion type: [place] artery [place] vs. transplanted heart: [place] heart Associated angina: without angina Qualified Code(s): I25.10 - Atherosclerotic heart disease of [place] coronary artery without angina pectoris (5) S/P coronary artery stent placement Code(s): Z95.5 - PRESENCE OF CORONARY ANGIOPLASTY IMPLANT AND GRAFT (6) Diabetic peripheral vascular disease Code(s): E11.51 - TYPE 2 DIABETES W DIABETIC PERIPHERAL ANGIOPATH W/O GANGRENE (7) Hyperlipidemia Assessment/Plan: stable Continue home med Monitor LFTs Code(s): E78.5 - HYPERLIPIDEMIA, UNSPECIFIED Qualifiers: Hyperlipidemia type: pure hypercholesterolemia Qualified Code(s): E78.00 - Pure hypercholesterolemia, unspecified; E78.0 - Pure hypercholesterolemia (8) Hypertension Assessment/Plan: stable Continue home meds with parameters Monitor renal function Code(s): I10 - ESSENTIAL (PRIMARY) HYPERTENSION Qualifiers: Hypertension type: essential hypertension Qualified Code(s): I10 - Essential (primary) hypertension Assessment/Plan This is a 68 y/o man with a PMHx of NIDDM, ESRD s/p Cadaveric Renal Transplant, L-AVF (past dialysis), CAD s/p Stent 06/24, Chronic Osteomyelitis, Chronic Right Foot Ulcer. Placed in Observation for Complicated UTI, Uncontrolled Diabetes Mellitus, s/p Mechanical Fall for further evaluation of their emergent condition. Plan: See Problem List FEN PO fluids as tolerated Replete lytes prn Low Na, Diabetic Diet DVT ppx OOB SCDs Consider AC if LOS > 48 hrs Dispo: Observation Visit type - Emergency Visit Emergency Visit: Yes ED Registration Date: 06/04/18 Care time: The patient presented to the Emergency Department on the above date and was hospitalized for further evaluation of their emergent condition. - New Patient This patient is new to me today: Yes Date on this admission: 06/04/18 - Critical Care Critical Care patient: No
[2018-06-04] MEDS: INSULIN SLIDING SCALE (NOVOLOG) 1 VIAL SQ SCH (22:55)
[2018-06-04] MEDS ORDERED: INSULIN (NOVOLOG) ASPART 100 UNITS/ML 10ML VIAL ONE (22:58)
[2018-06-04] MEDS ORDERED: METOPROLOL TARTRATE 25 MG TABLET (FP) PO SCH (23:30)
[2018-06-05] MEDS: GABAPENTIN 100 MG CAPSULE (FP) PO SCH ×3 (00:05→22:11)
[2018-06-05] MEDS: TACROLIMUS ANHYDROUS 1 MG CAPSULE PO SCH ×3 (02:26→22:35)
[2018-06-05 06:59] LABS: BASO % 0.4 % (0-2.0); EOS % 1.1 % (0-4.5); HEMATOCRIT 33.5 % (35.4-49); LYMPH % 36.7 % (8-40); MCH 28.1 pg (25.7-33.7); MCHC 32.8 g/dl (32.0-35.9); MEAN CELL VOLUME 85.7 fl (80-96); MEAN PLT VOLUME 7.2 fl (7.5-11.1); MONO % 15.9 % (3.8-10.2); NEUT % 45.9 % (42.8-82.8); PLATELET COUNT 325 K/MM3 (134-434); RBC 3.91 M/mm3 (4.00-5.60); RDW 20.2 % (11.9-15.9); WHITE BLOOD COUNT 3.9 K/mm3 (4.0-10.0)
[2018-06-05 07:18] LABS: ANION GAP 5 MMOL/L (8-16); BLOOD UREA NITROGEN 26 mg/dL (7-18); CALCIUM 9.8 mg/dL (8.5-10.1); CHLORIDE 108 mmol/L (98-107); CO2 27 mmol/L (21-32); CREATININE 0.8 mg/dL (0.55-1.3); GLUCOSE,RANDOM 103 mg/dL (74-106); POTASSIUM 4.5 mmol/L (3.5-5.1); SODIUM 139 mmol/L (136-145)
[2018-06-05] MEDS: INSULIN SLIDING SCALE (NOVOLOG) 1 VIAL SQ SCH ×4 (07:25→22:11)
--- NOTE | 2018-06-05 10:36 | PN ---
Progress Note, Physician Chief Complaint: patient seen and examined came in for fall from NH found to have UTI - Current Medication List Current Medications: Active Medications Amlodipine Besylate (Norvasc -) 10 mg PO DAILY [facility] Azathioprine (Imuran -) 150 mg PO DAILY [facility] Finasteride (Proscar -) 5 mg PO DAILY [facility] Gabapentin (Neurontin -) 100 mg PO BID [facility] Last Admin: 06/05/18 00:05 Dose: 100 mg Ceftriaxone Sodium 1 gm/ (Dextrose) 50 mls @ 100 mls/hr IVPB DAILY [facility]; Protocol Insulin Aspart (Novolog Vial Sliding Scale -) 1 vial SQ ACHS [facility]; Protocol Last Admin: 06/05/18 07:25 Dose: Not Given Isosorbide Dinitrate (Isordil -) 20 mg PO TIDISORDIL [facility] Magnesium Oxide (Mag-Ox -) 400 mg PO BID [facility] Metoprolol Tartrate (Lopressor -) 25 mg PO BID [facility] Prednisone (Deltasone -) 5 mg PO DAILY [facility] Ranitidine HCl (Zantac -) 150 mg PO HS [facility] Tacrolimus (Prograf) 3 mg PO BID [facility] Last Admin: 06/05/18 02:26 Dose: 3 mg Tamsulosin HCl (Flomax -) 0.8 mg PO DAILY@0830 [facility] - Objective Vital Signs: Vital Signs Temperature 98.2 F 06/04/18 15:32 Pulse Rate 68 06/05/18 06:58 Respiratory Rate 17 06/05/18 06:58 Blood Pressure 150/69 06/05/18 06:58 O2 Sat by Pulse Oximetry (%) 100 06/05/18 06:58 Constitutional: Yes: Calm Cardiovascular: Yes: Regular Rate and Rhythm, S1, S2 Respiratory: Yes: CTA Bilaterally Gastrointestinal: Yes: Normal Bowel Sounds, Soft Edema: No Neurological: Yes: Alert, Oriented Labs: CBC, BMP 06/05/18 05:50 06/05/18 05:50 Problem List - Problems (1) Fall Assessment/Plan: PT eval neurology cultures pending emperic abx Code(s): W19.XXXA - UNSPECIFIED FALL, INITIAL ENCOUNTER (2) Hyperglycemia Assessment/Plan: on steroids insulin sliding scale bgm hgba1c pending levemir Code(s): R73.9 - HYPERGLYCEMIA, UNSPECIFIED (3) Renal transplant recipient Assessment/Plan: tacrolimus steroids renal consult Code(s): Z94.0 - KIDNEY TRANSPLANT STATUS (4) UTI (urinary tract infection) Assessment/Plan: iv rocephin culturespendding Code(s): N39.0 - URINARY TRACT INFECTION, SITE NOT SPECIFIED (5) Uncontrolled diabetes mellitus Assessment/Plan: secondary to steroids levemir sliding scale Code(s): E11.65 - TYPE 2 DIABETES MELLITUS WITH HYPERGLYCEMIA Qualifiers: Diabetes mellitus type: type 2
[2018-06-05] MEDS ORDERED: CEFTRIAXONE 1 GM/50 ML BAG ONE (10:46)
[2018-06-05 11:13] LABS: MAGNESIUM 1.8 mg/dL (1.8-2.4)
[2018-06-05] MEDS: CEFTRIAXONE 1 GM in DEXTROSE 5%-WATER - 50 ML IVPB SCH (11:13)
[2018-06-05] MEDS: amLODIPine BESYLATE 10 MG TABLET (FP) PO SCH (11:14)
[2018-06-05] MEDS: azaTHIOprine 50 MG TABLET PO SCH (11:14)
[2018-06-05] MEDS: MAGNESIUM OXIDE 400 MG TABLET (FP) PO SCH ×2 (11:14→22:11)
[2018-06-05] MEDS: predniSONE 5 MG TABLET (UD) PO SCH (11:14)
[2018-06-05] MEDS: TAMSULOSIN HCL 0.4 MG CAP PO SCH (11:14)
[2018-06-05] MEDS: METOPROLOL TARTRATE 25 MG TABLET (FP) PO SCH ×2 (11:14→22:10)
[2018-06-05] MEDS: FINASTERIDE 5 MG TABLET (FP) PO SCH (11:14)
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
--- NOTE | 2018-06-05 15:03 | PN ---
Progress Note (short form) - Note Progress Note: ID CONSULT DICTATED 68 Y/O MALE S/P RENAL TRANSPLANT ON IMMUNOSUPPRESIVE THERAPY ADMITTED S/P FALL PT HYPERGLYCEMIC, LEUKOPENIC. U/A +PYURIA R/O SEPSIS SECONDARY TO SOURCE AWAIT SEPSIS W/U EMPIRIC CEFTRIAXONE
--- NOTE | 2018-06-05 17:10 | CONS ---
DATE OF CONSULTATION: DATE OF DICTATION: 06/05/2018 INFECTIOUS DISEASE CONSULTATION HISTORY OF PRESENT ILLNESS: The patient is a 68-year-old diabetic male with a history of renal transplant on immunosuppressive therapy, now evaluated for urinary tract infection. The patient was admitted to the hospital on June 05 after falling in his care home facility. The patient was ambulating at the facility and fell, sustaining head trauma but no loss of consciousness. He was brought to the emergency room where he was evaluated. A CAT scan of the head was performed and was negative for acute infarct or bleed. His course was complicated by uncontrolled blood sugar with blood sugar in excess of 400. He was also noted to have pyuria. At the present time, he is awake and alert. He has no focal complaint. He denies any head pain. No complaints of chest pain, shortness of breath, cough, or sputum production. He denies vomiting or diarrhea. No dysuria. The patient has had a history of diabetic foot infections and osteomyelitis. He was last hospitalized in December 2017 for treatment of infected diabetic foot ulcer and osteomyelitis. PAST MEDICAL HISTORY: Positive for renal failure status post renal transplant 2013, diabetes mellitus, coronary artery disease, history of infected diabetic foot ulcers and osteomyelitis. PAST SURGICAL HISTORY: Status post left upper extremity AV fistula, coronary artery stents. ALLERGIES: No known allergies. MEDICATION: Zantac, tacrolimus, Imuran, prednisone, Flomax, isosorbide, Norvasc, Neurontin, Humalog. SOCIAL HISTORY: Presently residing in care home facility. No active tobacco or alcohol use. SYSTEMS REVIEW: Neurologic: As per HPI. Cardiac: Negative for chest pain or palpitations. Respiratory: Negative for cough or sputum production. Gastrointestinal: Negative vomiting or diarrhea. Genitourinary: As per HPI. LABORATORY DATA: White count 3.9, 45 neutrophils, 36 lymphocytes, 15 monocytes, hematocrit 33.5, platelets 325, creatinine 0.8. Urinalysis 35 white cells. Chest x-ray negative for acute infiltrate. PHYSICAL EXAMINATION: General: On exam, he is awake and alert, in no acute distress. Vital signs: Temperature 98.2, blood pressure 150/69, pulse 68 regular, respirations 18 per minute. HEENT: Sclerae anicteric. No head trauma noted. Oropharynx negative for thrush. Positive angular stomatitis. Neck: Supple. Cardiovascular: Heart sounds S1, S2. Lungs: Clear. Abdomen: Soft, nontender. No suprapubic or flank tenderness. Extremities: Negative for edema. Healed plantar wound right foot without evidence of infection. IMPRESSION: A 68-year-old male status post renal transplant on immunosuppressive therapy admitted status post fall noted to be hyperglycemic, glucopenic, and urinalysis positive for pyuria. 1. Rule out sepsis secondary to genitourinary source. 2. Status post mechanical fall. 3. History of renal transplant on immunosuppressive therapy. Await sepsis workup. Continue empiric ceftriaxone for possible sepsis secondary to focus. Follow up CBC. Will follow. Thank you for the kind referral. ALFRED FITZGERALD M.D. MARTY/[id number]
[2018-06-05] MEDS ORDERED: INSULIN REGULAR HUMAN 100 UNITS/ML *VIAL ONE (17:20)
[2018-06-05] MEDS ORDERED: INSULIN (NOVOLOG) ASPART 100 UNITS/ML 10ML VIAL ONE (21:22)
[2018-06-05] MEDS ORDERED: INSULIN (LEVEMIR) 100 UNITS/ML UNITS SQ SCH (22:00)
[2018-06-05] MEDS: RANITIDINE HCL 150 MG TABLET (FP) PO SCH (22:11)
--- NOTE | 2018-06-05 23:00 | CONSULT ---
Consult Consult Specialty:: endocrine Referred by:: victor hugo TREVIÑO Reason for Consultation:: dm 2 - History of Present Illness Chief Complaint: high sugars History of Present Illness: 68 y/o man with a PMHx of NIDDM, ESRD s/p Renal Transplant, L-AVF (past dialysis ), CAD s/p Stent 06/24, Chronic Osteomyelitis, Chronic Right Foot Ulcer. Who presents to the ED from [facility] s/p mechanical fall for evaluation. Patient admitted with high sugars >400mg/dl has nausea,weakness,increased thirst - Past Medical History Cardio/Vascular: Yes: HTN Renal/: Yes: Renal Failure, Other (Renal transplant) Endocrine: Yes: Diabetes Mellitus - Past Surgical History Past Surgical History: Yes: AV Fistula/Graft (Left), Kidney Transplant, Stent - Alcohol/Substance Use Hx Alcohol Use: No - Smoking History Smoking history: Never smoked Have you smoked in the past 12 months: No - Social History ADL: Support Services History of Recent Travel: No Home Medications - Allergies Allergies/Adverse Reactions: Allergies Allergy/AdvReac Type Severity Reaction Status Date / Time No Known Allergies Allergy Verified 12/08/17 17:31 - Home Medications Home Medications: Ambulatory Orders Ranitidine [Zantac -] 150 mg PO DAILY 04/24/15 Tacrolimus [Astagraf Xl] 3 mg PO BID 04/24/15 Tamsulosin HCl [Flomax -] 0.8 mg PO BID 04/24/15 Azathioprine [Imuran] 150 mg PO DAILY 07/08/17 Isosorbide Mononitrate [Isosorbide Mononitrate ER] 20 mg PO Q8H 07/08/17 Prednisone 5 mg PO DAILY 07/08/17 Amlodipine Besylate [Norvasc -] 10 mg PO DAILY 06/04/18 Finasteride 5 mg PO DAILY 06/04/18 Gabapentin 100 mg PO BID 06/04/18 Insulin Glargine,Hum.rec.anlog [[place] U-100] 12 unit SQ DAILY Insulin Lispro [Humalog] 0 unit SQ ASDIR 06/04/18 Magnesium 400 mg PO BID 06/04/18 Metoprolol Tartrate 25 mg PO Q12H 06/04/18 Review of Systems - Review of Systems Constitutional: reports: Lethargy, Weakness Eyes: reports: Blurred Vision HENT: reports: No Symptoms Neck: reports: No Symptoms Cardiovascular: reports: Shortness of Breath Respiratory: reports: Exercise Intolerance, SOB on Exertion Gastrointestinal: reports: Bloating Genitourinary: reports: No Symptoms Musculoskeletal: reports: Muscle Cramps, Muscle Weakness Neurological: reports: Numbness, Weakness Physical Exam Vital Signs: Vital Signs Temperature 98.2 F 06/05/18 21:00 Pulse Rate 80 06/05/18 21:09 Respiratory Rate 82 H 06/05/18 21:00 Blood Pressure 149/59 L 06/05/18 21:09 O2 Sat by Pulse Oximetry (%) 100 06/05/18 21:14 Constitutional: Yes: Calm Eyes: Yes: EOM Intact HENT: Yes: Normocephalic Neck: Yes: Trachea Midline Cardiovascular: Yes: Regular Rate and Rhythm Respiratory: Yes: CTA Bilaterally Gastrointestinal: Yes: Normal Bowel Sounds ...Rectal Exam: Yes: Deferred Breast(s): Yes: WNL Musculoskeletal: Yes: WNL Extremities: Yes: WNL Edema: No Neurological: Yes: Alert, Oriented Labs: CBC, BMP 06/05/18 05:50 06/05/18 05:50 Problem List - Problems (1) Fall Code(s): W19.XXXA - UNSPECIFIED FALL, INITIAL ENCOUNTER (2) Hyperglycemia Code(s): R73.9 - HYPERGLYCEMIA, UNSPECIFIED (3) Renal transplant recipient Code(s): Z94.0 - KIDNEY TRANSPLANT STATUS (4) Uncontrolled diabetes mellitus Code(s): E11.65 - TYPE 2 DIABETES MELLITUS WITH HYPERGLYCEMIA Qualifiers: Diabetes mellitus type: type 2 (5) Chest pain Code(s): R07.9 - CHEST PAIN, UNSPECIFIED Qualifiers: Chest pain type: unspecified Qualified Code(s): R07.9 - Chest pain, unspecified (6) Diabetes mellitus Code(s): E11.9 - TYPE 2 DIABETES MELLITUS WITHOUT COMPLICATIONS (7) Diabetic foot ulcer Code(s): E11.621 - TYPE 2 DIABETES MELLITUS WITH FOOT ULCER; L97.509 - NON- PRESSURE CHRONIC ULCER OTH PRT UNSP FOOT W UNSP SEVERITY Qualifiers: Diabetic foot ulcer location: midfoot Diabetes mellitus type: type 2 Laterality: right Non-pressure ulcer stage: unspecified non-pressure ulcer stage Qualified Code(s): E11.621 - Type 2 diabetes mellitus with foot ulcer; L97.419 - Non-pressure chronic ulcer of right heel and midfoot with unspecified severity Assessment/Plan Current Active Problems Fall (Acute) Hyperglycemia (Acute) Renal transplant recipient (Acute) UTI (urinary tract infection) (Acute) Uncontrolled diabetes mellitus (Acute) Abnormal Lab Results 06/05/18 06/05/18 06/05/18 05:50 05:50 05:50 WBC 3.9 L RBC 3.91 L Hgb 11.0 L Hct 33.5 L RDW 20.2 H MPV 7.2 L Monocytes % 15.9 H Chloride 108 H Anion Gap 5 L BUN 26 H Hemoglobin A1c % 8.9 H Laboratory Results - last 24 hr 06/05/18 06/05/18 06/05/18 05:50 05:50 05:50 WBC 3.9 L RBC 3.91 L Hgb 11.0 L Hct 33.5 L MCV 85.7 MCH 28.1 MCHC 32.8 RDW 20.2 H Plt Count 325 MPV 7.2 L Absolute Neuts (auto) 1.8 Neutrophils % 45.9 D Lymphocytes % 36.7 D Monocytes % 15.9 H Eosinophils % 1.1 D Basophils % 0.4 Nucleated RBC % 0 Sodium 139 Potassium 4.5 Chloride 108 H Carbon Dioxide 27 Anion Gap 5 L BUN 26 H Creatinine 0.8 Creat Clearance w eGFR 96.13 POC Glucometer Random Glucose 103 Hemoglobin A1c % 8.9 H Calcium 9.8 Magnesium 1.8 06/05/18 06/05/18 06/05/18 07:23 11:02 17:17 WBC RBC Hgb Hct MCV MCH MCHC RDW Plt Count MPV Absolute Neuts (auto) Neutrophils % Lymphocytes % Monocytes % Eosinophils % Basophils % Nucleated RBC % Sodium Potassium Chloride Carbon Dioxide Anion Gap BUN Creatinine Creat Clearance w eGFR POC Glucometer 106 238 332 Random Glucose Hemoglobin A1c % Calcium Magnesium 06/05/18 22:10 WBC RBC Hgb Hct MCV MCH MCHC RDW Plt Count MPV Absolute Neuts (auto) Neutrophils % Lymphocytes % Monocytes % Eosinophils % Basophils % Nucleated RBC % Sodium Potassium Chloride Carbon Dioxide Anion Gap BUN Creatinine Creat Clearance w eGFR POC Glucometer 388 Random Glucose Hemoglobin A1c % Calcium Magnesium plan: bgm qid novolog insulin levemir 12units am diet nutrition
[2018-06-06] MEDS ORDERED: ISOSORBIDE DINITRATE 20 MG TABLET (FP) PO SCH (01:30)
[2018-06-06 03:42] VITALS: BMI 23.1
[2018-06-06] MEDS: INSULIN SLIDING SCALE (NOVOLOG) 1 VIAL SQ SCH ×4 (06:09→21:35)
[2018-06-06] MEDS ORDERED: INSULIN (LEVEMIR) 100 UNITS/ML UNITS SQ SCH (07:00)
[2018-06-06 08:16] LABS: BASO % 0.2 % (0-2.0); EOS % 0.7 % (0-4.5); HEMATOCRIT 33.8 % (35.4-49); HEMOGLOBIN 10.8 GM/dL (11.7-16.9); LYMPH % 22.8 % (8-40); MCH 27.3 pg (25.7-33.7); MCHC 32.1 g/dl (32.0-35.9); MONO % 16.1 % (3.8-10.2); NEUT % 60.2 % (42.8-82.8); PLATELET COUNT 332 K/MM3 (134-434); RBC 3.97 M/mm3 (4.00-5.60); RDW 20.6 % (11.9-15.9); WHITE BLOOD COUNT 4.8 K/mm3 (4.0-10.0)
[2018-06-06 08:28] LABS: ALBUMIN 2.6 g/dl (3.4-5.0); ALK PHOS 92 U/L (45-117); ANION GAP 4 MMOL/L (8-16); BILIRUBIN,TOTAL 0.3 mg/dL (0.2-1); BLOOD UREA NITROGEN 25 mg/dL (7-18); CALCIUM 9.6 mg/dL (8.5-10.1); CHLORIDE 104 mmol/L (98-107); CO2 30 mmol/L (21-32); CREATININE 1.1 mg/dL (0.55-1.3); POTASSIUM 5.1 mmol/L (3.5-5.1); SGOT/AST 10 U/L (15-37); SGPT/ALT 20 U/L (13-61); SODIUM 137 mmol/L (136-145); TOT PROT 6.1 g/dl (6.4-8.2)
[2018-06-06 08:32] LABS: GLUCOSE,RANDOM 357 mg/dL (74-106)
[2018-06-06] MEDS ORDERED: DEXTROSE 5%-WATER - 50 ML IVPB ONE (08:58)
[2018-06-06] MEDS ORDERED: cefTRIAXone SODIUM 1 GM VIAL ONE (08:58)
[2018-06-06] MEDS: TAMSULOSIN HCL 0.4 MG CAP PO SCH (10:03)
[2018-06-06] MEDS: GABAPENTIN 100 MG CAPSULE (FP) PO SCH ×2 (10:04→21:31)
[2018-06-06] MEDS: FINASTERIDE 5 MG TABLET (FP) PO SCH (10:04)
[2018-06-06] MEDS: MAGNESIUM OXIDE 400 MG TABLET (FP) PO SCH ×2 (10:04→21:31)
[2018-06-06] MEDS: amLODIPine BESYLATE 10 MG TABLET (FP) PO SCH (10:04)
[2018-06-06] MEDS: predniSONE 5 MG TABLET (UD) PO SCH (10:04)
[2018-06-06] MEDS: METOPROLOL TARTRATE 25 MG TABLET (FP) PO SCH ×2 (10:04→21:31)
[2018-06-06] MEDS: ISOSORBIDE DINITRATE 20 MG TABLET (FP) PO SCH ×3 (10:05→17:04)
[2018-06-06] MEDS: CEFTRIAXONE 1 GM in DEXTROSE 5%-WATER - 50 ML IVPB SCH (10:07)
--- NOTE | 2018-06-06 11:27 | PN ---
Progress Note, Physician Chief Complaint: mechanical fall UTI History of Present Illness: NAD labs unremarkable UC+ Seen by ID On IV rocephin afebrile - Current Medication List Current Medications: Active Medications Amlodipine Besylate (Norvasc -) 10 mg PO DAILY [facility] Last Admin: 06/06/18 10:04 Dose: 10 mg Azathioprine (Imuran -) 150 mg PO DAILY [facility] Last Admin: 06/05/18 11:14 Dose: 150 mg Finasteride (Proscar -) 5 mg PO DAILY [facility] Last Admin: 06/06/18 10:04 Dose: 5 mg Gabapentin (Neurontin -) 100 mg PO BID [facility] Last Admin: 06/06/18 10:04 Dose: 100 mg Ceftriaxone Sodium 1 gm/ (Dextrose) 50 mls @ 100 mls/hr IVPB DAILY [facility]; Protocol Last Admin: 06/06/18 10:07 Dose: 100 mls/hr Insulin Aspart (Novolog Vial Sliding Scale -) 1 vial SQ ACHS [facility]; Protocol Last Admin: 06/06/18 06:09 Dose: 8 units Isosorbide Dinitrate (Isordil -) 20 mg PO TIDISORDIL [facility] Last Admin: 06/06/18 10:05 Dose: 20 mg Magnesium Oxide (Mag-Ox -) 400 mg PO BID [facility] Last Admin: 06/06/18 10:04 Dose: 400 mg Metoprolol Tartrate (Lopressor -) 25 mg PO BID [facility] Last Admin: 06/06/18 10:04 Dose: 25 mg Prednisone (Deltasone -) 5 mg PO DAILY [facility] Last Admin: 06/06/18 10:04 Dose: 5 mg Ranitidine HCl (Zantac -) 150 mg PO HS [facility] Last Admin: 06/05/18 22:11 Dose: 150 mg Tacrolimus (Prograf) 3 mg PO BID [facility] Last Admin: 06/05/18 22:35 Dose: 3 mg Tamsulosin HCl (Flomax -) 0.8 mg PO DAILY@0830 [facility] Last Admin: 06/06/18 10:03 Dose: 0.8 mg - Objective Vital Signs: Vital Signs Temperature 98.2 F 06/06/18 06:43 Pulse Rate 72 06/06/18 06:43 Respiratory Rate 20 06/06/18 06:43 Blood Pressure 156/62 06/06/18 06:43 O2 Sat by Pulse Oximetry (%) 100 06/06/18 03:48 Constitutional: Yes: Well Nourished, No Distress, Calm Cardiovascular: Yes: Regular Rate and Rhythm Respiratory: Yes: Regular Gastrointestinal: Yes: WNL Genitourinary: Yes: WNL Musculoskeletal: Yes: Muscle Weakness Extremities: Yes: WNL Edema: No Peripheral Pulses WNL: Yes Neurological: Yes: Alert, Oriented Psychiatric: Yes: Alert, Oriented Labs: CBC, BMP 06/06/18 06:30 06/06/18 06:30 Problem List - Problems (1) Fall Assessment/Plan: -Physical therapy -safety precautions Code(s): W19.XXXA - UNSPECIFIED FALL, INITIAL ENCOUNTER (2) UTI (urinary tract infection) Assessment/Plan: -UC: Microbiology 06/04/18 18:11 Urine - Urine Clean Catch Urine Culture - Preliminary Lactose Fermenting Neg Bacilli Lactose Fermenting Neg Bacilli#2 06/04/18 19:30 Blood - Peripheral Venous Blood Culture - Preliminary NO GROWTH OBTAINED AFTER 24 HOURS, INCUBATION TO CONTINUE FOR 4 DAYS. 06/04/18 19:40 Blood - Peripheral Venous Blood Culture - Preliminary NO GROWTH OBTAINED AFTER 24 HOURS, INCUBATION TO CONTINUE FOR 4 DAYS. -ID on board -IV rocephin -afebrile -no leukocytosis -U/S renal pending Code(s): N39.0 - URINARY TRACT INFECTION, SITE NOT SPECIFIED (3) Uncontrolled diabetes mellitus Assessment/Plan: -A1c at 8.9 -Seen by Endocrinology -BGM >300 -Increase levemir to 14 units daily -Novolog sliding scale -Diabetic low sodium diet -RD consult Code(s): E11.65 - TYPE 2 DIABETES MELLITUS WITH HYPERGLYCEMIA Qualifiers: Diabetes mellitus type: type 2 (4) CKD (chronic kidney disease) Assessment/Plan: -Nephrology consult -U/S renal pending -Cr stable -monitor trend Code(s): N18.9 - CHRONIC KIDNEY DISEASE, UNSPECIFIED Assessment/Plan see problem list
[2018-06-06] MEDS: azaTHIOprine 50 MG TABLET PO SCH (11:37)
[2018-06-06] MEDS: TACROLIMUS ANHYDROUS 1 MG CAPSULE PO SCH ×2 (11:37→21:31)
--- NOTE | 2018-06-06 11:49 | PN ---
Progress Note, Physician History of Present Illness: AWAKE, ALERT OOB IN WHEELCHAIR DENIES DYSURIA/ HEMATURIA/ FREQUENCY/URGENCY NO C/O F/C AFEBRILE WBC WNL BC (-) URINE C/S LF - Current Medication List Current Medications: Active Medications Amlodipine Besylate (Norvasc -) 10 mg PO DAILY [facility] Last Admin: 06/06/18 10:04 Dose: 10 mg Azathioprine (Imuran -) 150 mg PO DAILY [facility] Last Admin: 06/06/18 11:37 Dose: 150 mg Finasteride (Proscar -) 5 mg PO DAILY [facility] Last Admin: 06/06/18 10:04 Dose: 5 mg Gabapentin (Neurontin -) 100 mg PO BID [facility] Last Admin: 06/06/18 10:04 Dose: 100 mg Ceftriaxone Sodium 1 gm/ (Dextrose) 50 mls @ 100 mls/hr IVPB DAILY [facility]; Protocol Last Admin: 06/06/18 10:07 Dose: 100 mls/hr Insulin Aspart (Novolog Vial Sliding Scale -) 1 vial SQ ACHS [facility]; Protocol Last Admin: 06/06/18 06:09 Dose: 8 units Insulin Detemir (Levemir Vial) 14 units SQ AM [facility] Isosorbide Dinitrate (Isordil -) 20 mg PO TIDISORDIL [facility] Last Admin: 06/06/18 10:05 Dose: 20 mg Magnesium Oxide (Mag-Ox -) 400 mg PO BID [facility] Last Admin: 06/06/18 10:04 Dose: 400 mg Metoprolol Tartrate (Lopressor -) 25 mg PO BID [facility] Last Admin: 06/06/18 10:04 Dose: 25 mg Prednisone (Deltasone -) 5 mg PO DAILY [facility] Last Admin: 06/06/18 10:04 Dose: 5 mg Ranitidine HCl (Zantac -) 150 mg PO HS [facility] Last Admin: 06/05/18 22:11 Dose: 150 mg Tacrolimus (Prograf) 3 mg PO BID [facility] Last Admin: 06/06/18 11:37 Dose: 3 mg Tamsulosin HCl (Flomax -) 0.8 mg PO DAILY@0830 [facility] Last Admin: 06/06/18 10:03 Dose: 0.8 mg - Objective Vital Signs: Vital Signs Temperature 98.2 F 06/06/18 06:43 Pulse Rate 72 06/06/18 06:43 Respiratory Rate 20 06/06/18 06:43 Blood Pressure 156/62 06/06/18 06:43 O2 Sat by Pulse Oximetry (%) 100 06/06/18 03:48 Constitutional: Yes: No Distress Eyes: Yes: Conjunctiva Clear Cardiovascular: Yes: Regular Rate and Rhythm, S1, S2 Respiratory: Yes: CTA Bilaterally Gastrointestinal: Yes: Normal Bowel Sounds, Soft. No: Tenderness Edema: No Labs: CBC, BMP 06/06/18 06:30 06/06/18 06:30 Assessment/Plan UTI R/O SEPSIS SECONDARY TO UTI TOXIC METABOLIC ENCEPHALOPATHY UNCONTROLLED DM S/P RENAL TRANSPLANT AWAIT C/S CONTINUE CEFTRIAXONE
[2018-06-06] MEDS: INSULIN (LEVEMIR) 100 UNITS/ML UNITS SQ SCH (12:30)
--- NOTE | 2018-06-06 14:55 | CONSULT ---
Consult - text type - Consultation Consultation Note: Renal consult for renal transplant This is a 68 year old gentleman with hx of ESRD s/p DDRT, CAD s/p PCI and stenting, chronic osteomyelitis who [place] and found to have UTI. Pt offers no acute complaints. Denies any sob, cp, abd pain, N/V/ D. Making urine w/o difficulty. No fever or chills. No pain over renal transplant site. No leg swelling. PMhx: as above Allergies: NKDA Family Hx: NC Social Hx: no T/A/D ROS: as per HPI Home Medications Medication Instructions Recorded Ranitidine [Zantac -] 150 mg PO DAILY 04/24/15 Tacrolimus [Astagraf Xl] 3 mg PO BID 04/24/15 Tamsulosin HCl [Flomax -] 0.8 mg PO BID 04/24/15 Azathioprine [Imuran] 150 mg PO DAILY 07/08/17 Isosorbide Mononitrate [Isosorbide 20 mg PO Q8H 07/08/17 Mononitrate ER] Prednisone 5 mg PO DAILY 07/08/17 Amlodipine Besylate [Norvasc -] 10 mg PO DAILY 06/04/18 Finasteride 5 mg PO DAILY 06/04/18 Gabapentin 100 mg PO BID 06/04/18 Insulin Glargine,Hum.rec.anlog 12 unit SQ DAILY 06/04/18 [Basaglar Kwikpen U-100] Insulin Lispro [Humalog] 0 unit SQ ASDIR 06/04/18 Magnesium 400 mg PO BID 06/04/18 Metoprolol Tartrate 25 mg PO Q12H 06/04/18 Vital Signs Temperature 98.6 F 06/06/18 14:00 Pulse Rate 67 06/06/18 14:00 Respiratory Rate 20 06/06/18 14:00 Blood Pressure 132/51 L 06/06/18 14:00 O2 Sat by Pulse Oximetry (%) 100 06/06/18 12:00 Intake & Output 06/03/18 06/04/18 06/05/18 06/06/18 23:59 23:59 23:59 23:59 Intake Total 1000 240 Balance 1000 240 Weight 61.235 kg 64.864 kg NAD awake and alert MMM, neck supple, no JVD RRR, no M/R CTA, no rales soft NT/ND no LE edema, clubbing or cyanosis no graft tenderness CBC, BMP 06/06/18 06:30 06/06/18 06:30 Current Medications Amlodipine Besylate (Norvasc -) 10 mg PO DAILY [facility] Last Admin: 06/06/18 10:04 Dose: 10 mg Azathioprine (Imuran -) 150 mg PO DAILY [facility] Last Admin: 06/06/18 11:37 Dose: 150 mg Finasteride (Proscar -) 5 mg PO DAILY [facility] Last Admin: 06/06/18 10:04 Dose: 5 mg Gabapentin (Neurontin -) 100 mg PO BID [facility] Last Admin: 06/06/18 10:04 Dose: 100 mg Ceftriaxone Sodium 1 gm/ (Dextrose) 50 mls @ 100 mls/hr IVPB DAILY [facility]; Protocol Last Admin: 06/06/18 10:07 Dose: 100 mls/hr Insulin Aspart (Novolog Vial Sliding Scale -) 1 vial SQ ACHS [facility]; Protocol Last Admin: 06/06/18 12:31 Dose: 6 units Insulin Detemir (Levemir Vial) 14 units SQ AM [facility] Last Admin: 06/06/18 12:30 Dose: 14 unit Isosorbide Dinitrate (Isordil -) 20 mg PO TIDISORDIL [facility] Last Admin: 06/06/18 12:33 Dose: 20 mg Magnesium Oxide (Mag-Ox -) 400 mg PO BID [facility] Last Admin: 06/06/18 10:04 Dose: 400 mg Metoprolol Tartrate (Lopressor -) 25 mg PO BID [facility] Last Admin: 06/06/18 10:04 Dose: 25 mg Prednisone (Deltasone -) 5 mg PO DAILY [facility] Last Admin: 06/06/18 10:04 Dose: 5 mg Ranitidine HCl (Zantac -) 150 mg PO HS [facility] Last Admin: 06/05/18 22:11 Dose: 150 mg Tacrolimus (Prograf) 3 mg PO BID [facility] Last Admin: 06/06/18 11:37 Dose: 3 mg Tamsulosin HCl (Flomax -) 0.8 mg PO DAILY@0830 [facility] Last Admin: 06/06/18 10:03 Dose: 0.8 mg 68 year old gentleman with hx of ESRD s/p DDRT, CAD s/p PCI and stenting, chronic osteomyelitis who [place] and found to have UTI. #ESRD s/p Renal transplant #Cystitis r/o pylonephritis #Syncope #HTN #CAD Renal function stable Continue Tacrolimus, Prednisone and imuran at home doses check Tacrolimus level in AM Trend renal function and electrolytes daily US of transplanted kidney done, read pending Cardiology following for syncope and CAD hx BP at goal Thank you Price Carlton DO
[2018-06-06] MEDS ORDERED: INSULIN (LEVEMIR) 100 UNITS/ML UNITS SQ ONE (16:37)
[2018-06-06] MEDS ORDERED: INSULIN (NOVOLOG) ASPART 100 UNITS/ML 10ML VIAL ONE ×2 (16:37→21:00)
[2018-06-06] MEDS ORDERED: PT OWN MED DRAWER 7, Y5N ONE (21:03)
[2018-06-06] MEDS: RANITIDINE HCL 150 MG TABLET (FP) PO SCH (21:32)
[2018-06-07] MEDS: INSULIN SLIDING SCALE (NOVOLOG) 1 VIAL SQ SCH ×4 (06:10→22:10)
[2018-06-07] MEDS: INSULIN (LEVEMIR) 100 UNITS/ML UNITS SQ SCH (06:11)
[2018-06-07 07:58] LABS: BASO % 0.3 % (0-2.0); EOS % 0.8 % (0-4.5); HEMATOCRIT 33.5 % (35.4-49); HEMOGLOBIN 10.6 GM/dL (11.7-16.9); LYMPH % 20.7 % (8-40); MCHC 31.7 g/dl (32.0-35.9); MEAN CELL VOLUME 85.3 fl (80-96); MEAN PLT VOLUME 7.4 fl (7.5-11.1); MONO % 13.5 % (3.8-10.2); NEUT % 64.7 % (42.8-82.8); PLATELET COUNT 315 K/MM3 (134-434); RBC 3.93 M/mm3 (4.00-5.60); RDW 20.2 % (11.9-15.9); WHITE BLOOD COUNT 6.9 K/mm3 (4.0-10.0)
[2018-06-07 08:14] LABS: ALBUMIN 2.5 g/dl (3.4-5.0); ALK PHOS 100 U/L (45-117); ANION GAP 5 MMOL/L (8-16); BILIRUBIN,TOTAL 0.3 mg/dL (0.2-1); BLOOD UREA NITROGEN 26 mg/dL (7-18); CALCIUM 9.4 mg/dL (8.5-10.1); CHLORIDE 104 mmol/L (98-107); CO2 26 mmol/L (21-32); GLUCOSE,RANDOM 236 mg/dL (74-106); MAGNESIUM 1.8 mg/dL (1.8-2.4); PHOSPHOROUS 2.8 mg/dL (2.5-4.9); POTASSIUM 4.7 mmol/L (3.5-5.1); SGOT/AST 12 U/L (15-37); SGPT/ALT 20 U/L (13-61); SODIUM 135 mmol/L (136-145); TOT PROT 6.1 g/dl (6.4-8.2)
[2018-06-07] MEDS ORDERED: PT OWN MED DRAWER 7, Y5N ONE (09:51)
[2018-06-07] MEDS ORDERED: DEXTROSE 5%-WATER - 50 ML IVPB ONE (09:51)
[2018-06-07] MEDS ORDERED: cefTRIAXone SODIUM 1 GM VIAL ONE (09:51)
[2018-06-07] MEDS: predniSONE 5 MG TABLET (UD) PO SCH (09:52)
[2018-06-07] MEDS: TAMSULOSIN HCL 0.4 MG CAP PO SCH (09:53)
[2018-06-07] MEDS: FINASTERIDE 5 MG TABLET (FP) PO SCH (09:53)
[2018-06-07] MEDS: MAGNESIUM OXIDE 400 MG TABLET (FP) PO SCH ×2 (09:53→22:09)
[2018-06-07] MEDS: METOPROLOL TARTRATE 25 MG TABLET (FP) PO SCH ×2 (09:53→22:09)
[2018-06-07] MEDS: amLODIPine BESYLATE 10 MG TABLET (FP) PO SCH (09:53)
[2018-06-07] MEDS: GABAPENTIN 100 MG CAPSULE (FP) PO SCH ×2 (09:53→22:09)
[2018-06-07] MEDS: CEFTRIAXONE 1 GM in DEXTROSE 5%-WATER - 50 ML IVPB SCH (09:53)
[2018-06-07] MEDS: ISOSORBIDE DINITRATE 20 MG TABLET (FP) PO SCH ×3 (09:54→18:22)
[2018-06-07] MEDS: TACROLIMUS ANHYDROUS 1 MG CAPSULE PO SCH ×2 (09:54→22:09)
[2018-06-07] MEDS: azaTHIOprine 50 MG TABLET PO SCH (09:54)
--- NOTE | 2018-06-07 11:52 | PN ---
Progress Note, Physician Chief Complaint: mechanical fall UTI History of Present Illness: NAD labs unremarkable UC+ Seen by ID On IV rocephin afebrile - Current Medication List Current Medications: Active Medications Amlodipine Besylate (Norvasc -) 10 mg PO DAILY [facility] Last Admin: 06/07/18 09:53 Dose: 10 mg Azathioprine (Imuran -) 150 mg PO DAILY [facility] Last Admin: 06/07/18 09:54 Dose: 150 mg Finasteride (Proscar -) 5 mg PO DAILY [facility] Last Admin: 06/07/18 09:53 Dose: 5 mg Gabapentin (Neurontin -) 100 mg PO BID [facility] Last Admin: 06/07/18 09:53 Dose: 100 mg Ceftriaxone Sodium 1 gm/ (Dextrose) 50 mls @ 100 mls/hr IVPB DAILY [facility]; Protocol Last Admin: 06/07/18 09:53 Dose: 100 mls/hr Insulin Aspart (Novolog Vial Sliding Scale -) 1 vial SQ ACHS [facility]; Protocol Last Admin: 06/07/18 06:10 Dose: 6 units Insulin Detemir (Levemir Vial) 14 units SQ AM [facility]S [facility] Last Admin: 06/07/18 06:11 Dose: 14 unit Isosorbide Dinitrate (Isordil -) 20 mg PO TIDISORDIL [facility]S [facility] Last Admin: 06/07/18 09:54 Dose: 20 mg Magnesium Oxide (Mag-Ox -) 400 mg PO BID [facility] Last Admin: 06/07/18 09:53 Dose: 400 mg Metoprolol Tartrate (Lopressor -) 25 mg PO BID [facility] Last Admin: 06/07/18 09:53 Dose: 25 mg Prednisone (Deltasone -) 5 mg PO DAILY [facility] Last Admin: 06/07/18 09:52 Dose: 5 mg Ranitidine HCl (Zantac -) 150 mg PO HS [facility] Last Admin: 06/06/18 21:32 Dose: 150 mg Tacrolimus (Prograf) 3 mg PO BID [facility] Last Admin: 06/07/18 09:54 Dose: 3 mg Tamsulosin HCl (Flomax -) 0.8 mg PO DAILY@0830 [facility] Last Admin: 06/07/18 09:53 Dose: 0.8 mg - Objective Vital Signs: Vital Signs Temperature 98.7 F 06/07/18 06:30 Pulse Rate 76 06/07/18 06:30 Respiratory Rate 20 06/07/18 06:30 Blood Pressure 154/66 06/07/18 06:30 O2 Sat by Pulse Oximetry (%) 100 06/07/18 04:00 Constitutional: Yes: Well Nourished, No Distress, Calm Cardiovascular: Yes: Regular Rate and Rhythm Respiratory: Yes: Regular Gastrointestinal: Yes: Normal Bowel Sounds, Soft Musculoskeletal: Yes: WNL Extremities: Yes: WNL Edema: No Peripheral Pulses WNL: Yes Neurological: Yes: Alert, Oriented Psychiatric: Yes: Alert, Oriented Labs: CBC, BMP 06/07/18 06:30 06/07/18 06:30 Problem List - Problems (1) Fall Assessment/Plan: -Physical therapy -safety precautions Code(s): W19.XXXA - UNSPECIFIED FALL, INITIAL ENCOUNTER (2) UTI (urinary tract infection) Assessment/Plan: -UC: Microbiology 06/04/18 18:11 Urine - Urine Clean Catch Urine Culture - Final Klebsiella Pneumoniae Klebsiella Pneumoniae#2 06/04/18 19:30 Blood - Peripheral Venous Blood Culture - Preliminary NO GROWTH OBTAINED AFTER 48 HOURS, INCUBATION TO CONTINUE FOR 3 DAYS. 06/04/18 19:40 Blood - Peripheral Venous Blood Culture - Preliminary NO GROWTH OBTAINED AFTER 48 HOURS, INCUBATION TO CONTINUE FOR 3 DAYS. -ID on board -IV rocephin -afebrile -no leukocytosis -U/S renal negative Code(s): N39.0 - URINARY TRACT INFECTION, SITE NOT SPECIFIED (3) Uncontrolled diabetes mellitus Assessment/Plan: -A1c at 8.9 -Seen by Endocrinology -BGM >300 -Increase levemir to 14 units daily -Novolog sliding scale -Diabetic low sodium diet -RD consult Code(s): E11.65 - TYPE 2 DIABETES MELLITUS WITH HYPERGLYCEMIA Qualifiers: Diabetes mellitus type: type 2 (4) CKD (chronic kidney disease) Assessment/Plan: -Nephrology consult -U/S renal pending -Cr stable -monitor trend Code(s): N18.9 - CHRONIC KIDNEY DISEASE, UNSPECIFIED Assessment/Plan see problem list
--- NOTE | 2018-06-07 13:15 | PN ---
Progress Note (short form) - Note Progress Note: Renal follow up for Renal transplant Pt seen and examined at the bedside has no acute complaints appetite is good making urine no fever or chills Vital Signs Temperature 98.7 F 06/07/18 06:30 Pulse Rate 76 06/07/18 06:30 Respiratory Rate 20 06/07/18 06:30 Blood Pressure 154/66 06/07/18 06:30 O2 Sat by Pulse Oximetry (%) 100 06/07/18 04:00 Intake & Output 06/04/18 06/05/18 06/06/18 06/07/18 23:59 23:59 23:59 23:59 Intake Total 1000 790 Balance 1000 790 Weight 61.235 kg 64.864 kg NAD RRR, no M/R CTA, no rales soft NT/ND no LE edema CBC, BMP 06/07/18 06:30 06/07/18 06:30 Current Medications Amlodipine Besylate (Norvasc -) 10 mg PO DAILY [facility] Last Admin: 06/07/18 09:53 Dose: 10 mg Azathioprine (Imuran -) 150 mg PO DAILY [facility] Last Admin: 06/07/18 09:54 Dose: 150 mg Finasteride (Proscar -) 5 mg PO DAILY [facility] Last Admin: 06/07/18 09:53 Dose: 5 mg Gabapentin (Neurontin -) 100 mg PO BID [facility] Last Admin: 06/07/18 09:53 Dose: 100 mg Ceftriaxone Sodium 1 gm/ (Dextrose) 50 mls @ 100 mls/hr IVPB DAILY [facility]; Protocol Last Admin: 06/07/18 09:53 Dose: 100 mls/hr Insulin Aspart (Novolog Vial Sliding Scale -) 1 vial SQ ACHS [facility]; Protocol Last Admin: 06/07/18 12:31 Dose: 4 units Insulin Detemir (Levemir Vial) 14 units SQ AM [facility] Last Admin: 06/07/18 06:11 Dose: 14 unit Isosorbide Dinitrate (Isordil -) 20 mg PO TIDISORDIL [facility] Last Admin: 06/07/18 12:32 Dose: 20 mg Magnesium Oxide (Mag-Ox -) 400 mg PO BID [facility] Last Admin: 06/07/18 09:53 Dose: 400 mg Metoprolol Tartrate (Lopressor -) 25 mg PO BID [facility] Last Admin: 06/07/18 09:53 Dose: 25 mg Prednisone (Deltasone -) 5 mg PO DAILY [facility] Last Admin: 06/07/18 09:52 Dose: 5 mg Ranitidine HCl (Zantac -) 150 mg PO HS [facility] Last Admin: 06/06/18 21:32 Dose: 150 mg Tacrolimus (Prograf) 3 mg PO BID [facility] Last Admin: 06/07/18 09:54 Dose: 3 mg Tamsulosin HCl (Flomax -) 0.8 mg PO DAILY@0830 [facility] Last Admin: 06/07/18 09:53 Dose: 0.8 mg 68 year old gentleman with hx of ESRD s/p DDRT, CAD s/p PCI and stenting, chronic osteomyelitis who presented [place] with fall and found to have UTI. #ESRD s/p Renal transplant #Cystitis r/o pylonephritis #Syncope #HTN #CAD Renal function stable Continue Tacrolimus, Prednisone and imuran at home doses Tacrolimus level pending continue abx as per ID trend renal function and electrolytes Thank you Price Carlton DO
[2018-06-07] MEDS: RANITIDINE HCL 150 MG TABLET (FP) PO SCH (22:09)
[2018-06-08] MEDS ORDERED: INSULIN (LEVEMIR) 100 UNITS/ML UNITS SQ ONE ×2 (06:55→17:20)
[2018-06-08] MEDS ORDERED: INSULIN (NOVOLOG) ASPART 100 UNITS/ML 10ML VIAL ONE ×3 (06:55→21:46)
[2018-06-08] MEDS: INSULIN SLIDING SCALE (NOVOLOG) 1 VIAL SQ SCH ×4 (07:03→21:59)
[2018-06-08] MEDS: INSULIN (LEVEMIR) 100 UNITS/ML UNITS SQ SCH ×2 (07:03→10:07)
[2018-06-08] MEDS ORDERED: cefTRIAXone SODIUM 1 GM VIAL ONE ×2 (08:29→08:43)
[2018-06-08] MEDS ORDERED: DEXTROSE 5%-WATER - 50 ML IVPB ONE ×2 (08:30→08:43)
[2018-06-08] MEDS: METOPROLOL TARTRATE 25 MG TABLET (FP) PO SCH ×2 (09:58→21:58)
[2018-06-08] MEDS: MAGNESIUM OXIDE 400 MG TABLET (FP) PO SCH ×2 (09:58→21:58)
[2018-06-08] MEDS: amLODIPine BESYLATE 10 MG TABLET (FP) PO SCH (09:58)
[2018-06-08] MEDS: TAMSULOSIN HCL 0.4 MG CAP PO SCH (09:58)
[2018-06-08] MEDS: GABAPENTIN 100 MG CAPSULE (FP) PO SCH ×2 (09:58→21:58)
[2018-06-08] MEDS: TACROLIMUS ANHYDROUS 1 MG CAPSULE PO SCH ×2 (09:59→21:58)
[2018-06-08] MEDS: FINASTERIDE 5 MG TABLET (FP) PO SCH (09:59)
[2018-06-08] MEDS: predniSONE 5 MG TABLET (UD) PO SCH (09:59)
[2018-06-08] MEDS: ISOSORBIDE DINITRATE 20 MG TABLET (FP) PO SCH ×3 (10:00→17:14)
[2018-06-08] MEDS: azaTHIOprine 50 MG TABLET PO SCH (10:00)
[2018-06-08] MEDS: CEFTRIAXONE 1 GM in DEXTROSE 5%-WATER - 50 ML IVPB SCH (10:01)
--- NOTE | 2018-06-08 10:06 | PN ---
Progress Note, Physician Chief Complaint: UTI S/p Mechanical Fall History of Present Illness: Previous notes and events reviewed awake and alert NAD patient complain of 20lb weight loss in 2 months no complaints chest pain or SOB - Current Medication List Current Medications: Active Medications Amlodipine Besylate (Norvasc -) 10 mg PO DAILY [facility] Last Admin: 06/07/18 09:53 Dose: 10 mg Azathioprine (Imuran -) 150 mg PO DAILY [facility] Last Admin: 06/07/18 09:54 Dose: 150 mg Finasteride (Proscar -) 5 mg PO DAILY [facility] Last Admin: 06/07/18 09:53 Dose: 5 mg Gabapentin (Neurontin -) 100 mg PO BID [facility] Last Admin: 06/07/18 22:09 Dose: 100 mg Ceftriaxone Sodium 1 gm/ (Dextrose) 50 mls @ 100 mls/hr IVPB DAILY [facility]; Protocol Last Admin: 06/07/18 09:53 Dose: 100 mls/hr Insulin Aspart (Novolog Vial Sliding Scale -) 1 vial SQ ACHS [facility]; Protocol Last Admin: 06/08/18 07:03 Dose: Not Given Insulin Detemir (Levemir Vial) 18 units SQ AM [facility] Last Admin: 06/08/18 07:03 Dose: Not Given Isosorbide Dinitrate (Isordil -) 20 mg PO TIDISORDIL [facility] Last Admin: 06/07/18 18:22 Dose: 20 mg Magnesium Oxide (Mag-Ox -) 400 mg PO BID [facility] Last Admin: 06/07/18 22:09 Dose: 400 mg Metoprolol Tartrate (Lopressor -) 25 mg PO BID [facility] Last Admin: 06/07/18 22:09 Dose: 25 mg Prednisone (Deltasone -) 5 mg PO DAILY [facility] Last Admin: 06/07/18 09:52 Dose: 5 mg Ranitidine HCl (Zantac -) 150 mg PO HS [facility] Last Admin: 06/07/18 22:09 Dose: 150 mg Tacrolimus (Prograf) 3 mg PO BID [facility] Last Admin: 06/07/18 22:09 Dose: 3 mg Tamsulosin HCl (Flomax -) 0.8 mg PO DAILY@0830 [facility] Last Admin: 06/07/18 09:53 Dose: 0.8 mg - Objective Vital Signs: Vital Signs Temperature 98.1 F 06/08/18 07:05 Pulse Rate 68 06/08/18 07:05 Respiratory Rate 20 06/08/18 07:05 Blood Pressure 150/58 L 06/08/18 07:05 O2 Sat by Pulse Oximetry (%) 100 06/08/18 04:00 Constitutional: Yes: No Distress, Calm HENT: Yes: Atraumatic Cardiovascular: Yes: Regular Rate and Rhythm Respiratory: Yes: Regular, CTA Bilaterally Gastrointestinal: Yes: Normal Bowel Sounds, Soft Musculoskeletal: Yes: Muscle Weakness Extremities: Yes: WNL Edema: No Neurological: Yes: Alert, Oriented Psychiatric: Yes: Alert, Oriented Labs: CBC, BMP 06/07/18 06:30 06/07/18 06:30 Microbiology 06/04/18 19:30 Blood - Peripheral Venous Blood Culture - Preliminary NO GROWTH OBTAINED AFTER 72 HOURS, INCUBATION TO CONTINUE FOR 2 DAYS. 06/04/18 19:40 Blood - Peripheral Venous Blood Culture - Preliminary NO GROWTH OBTAINED AFTER 72 HOURS, INCUBATION TO CONTINUE FOR 2 DAYS. 06/04/18 18:11 Urine - Urine Clean Catch Urine Culture - Final Klebsiella Pneumoniae Klebsiella Pneumoniae#2 Problem List - Problems (1) CKD (chronic kidney disease) Assessment/Plan: -Renal on board -BUN/Cr 26/1.0 -monitor renal function daily -Renal US shows R renal transplant with no evidence of hydronephrosisor acute abnormalities, atropic and echogenic kidneys with no evidence of hydronephrosis or acute pathology Code(s): N18.9 - CHRONIC KIDNEY DISEASE, UNSPECIFIED (2) Fall Assessment/Plan: -PT -fall precautions Code(s): W19.XXXA - UNSPECIFIED FALL, INITIAL ENCOUNTER (3) Renal transplant recipient Assessment/Plan: -Renal on board -continue Tacrolimus Code(s): Z94.0 - KIDNEY TRANSPLANT STATUS (4) UTI (urinary tract infection) Assessment/Plan: -ID on board -IV Ceftriaxone -afebrile -UC positive for Klebsiella -no leukocytosis Code(s): N39.0 - URINARY TRACT INFECTION, SITE NOT SPECIFIED (5) Uncontrolled diabetes mellitus Assessment/Plan: -BGM ACHS -Levemir + ISS -Hg 8.9% -diabetic diet -Endo on board Code(s): E11.65 - TYPE 2 DIABETES MELLITUS WITH HYPERGLYCEMIA Qualifiers: Diabetes mellitus type: type 2 (6) Hypertension Assessment/Plan: -Lopressor and Norvasc -low Na diet Code(s): I10 - ESSENTIAL (PRIMARY) HYPERTENSION Qualifiers: Hypertension type: essential hypertension Qualified Code(s): I10 - Essential (primary) hypertension (7) Unintentional weight loss Assessment/Plan: -tumor markers ordered Code(s): R63.4 - ABNORMAL WEIGHT LOSS Assessment/Plan see problem list dvt ppx return to SNF for discharge
[2018-06-08] MEDS ORDERED: PT OWN MED DRAWER 7, Y5N ONE (13:11)
[2018-06-08] MEDS: RANITIDINE HCL 150 MG TABLET (FP) PO SCH (21:58)
[2018-06-09] MEDS: INSULIN (LEVEMIR) 100 UNITS/ML UNITS SQ SCH ×2 (06:12→10:43)
[2018-06-09] MEDS: INSULIN SLIDING SCALE (NOVOLOG) 1 VIAL SQ SCH ×4 (06:12→21:12)
[2018-06-09] MEDS ORDERED: INSULIN (NOVOLOG) ASPART 100 UNITS/ML 10ML VIAL ONE (06:14)
[2018-06-09] MEDS ORDERED: INSULIN (LEVEMIR) 100 UNITS/ML UNITS SQ ONE (06:14)
[2018-06-09 07:41] LABS: HEMATOCRIT 36.1 % (35.4-49); HEMOGLOBIN 11.7 GM/dL (11.7-16.9); MCH 27.2 pg (25.7-33.7); MCHC 32.3 g/dl (32.0-35.9); MEAN PLT VOLUME 7.2 fl (7.5-11.1); PLATELET COUNT 365 K/MM3 (134-434); RDW 19.5 % (11.9-15.9); WHITE BLOOD COUNT 3.7 K/mm3 (4.0-10.0)
[2018-06-09 08:18] LABS: ALBUMIN 2.8 g/dl (3.4-5.0); ALK PHOS 90 U/L (45-117); ANION GAP 4 MMOL/L (8-16); BILIRUBIN,TOTAL 0.4 mg/dL (0.2-1); BLOOD UREA NITROGEN 28 mg/dL (7-18); CALCIUM 10.1 mg/dL (8.5-10.1); CHLORIDE 104 mmol/L (98-107); CO2 30 mmol/L (21-32); CREATININE 0.9 mg/dL (0.55-1.3); GLUCOSE,RANDOM 164 mg/dL (74-106); POTASSIUM 5.1 mmol/L (3.5-5.1); SGOT/AST 13 U/L (15-37); SGPT/ALT 20 U/L (13-61); SODIUM 138 mmol/L (136-145); TOT PROT 6.5 g/dl (6.4-8.2)
[2018-06-09] MEDS ORDERED: cefTRIAXone SODIUM 1 GM VIAL ONE (09:51)
[2018-06-09] MEDS ORDERED: DEXTROSE 5%-WATER - 50 ML IVPB ONE (09:51)
[2018-06-09] MEDS ORDERED: PT OWN MED DRAWER 7, Y5N ONE ×3 (09:51→17:23)
[2018-06-09] MEDS: METOPROLOL TARTRATE 25 MG TABLET (FP) PO SCH ×2 (10:39→21:05)
[2018-06-09] MEDS: azaTHIOprine 50 MG TABLET PO SCH (10:39)
[2018-06-09] MEDS: TAMSULOSIN HCL 0.4 MG CAP PO SCH (10:39)
[2018-06-09] MEDS: FINASTERIDE 5 MG TABLET (FP) PO SCH (10:39)
[2018-06-09] MEDS: amLODIPine BESYLATE 10 MG TABLET (FP) PO SCH (10:39)
[2018-06-09] MEDS: GABAPENTIN 100 MG CAPSULE (FP) PO SCH ×2 (10:40→21:05)
[2018-06-09] MEDS: TACROLIMUS ANHYDROUS 1 MG CAPSULE PO SCH ×2 (10:40→21:05)
[2018-06-09] MEDS: ISOSORBIDE DINITRATE 20 MG TABLET (FP) PO SCH ×3 (10:40→17:28)
[2018-06-09] MEDS: MAGNESIUM OXIDE 400 MG TABLET (FP) PO SCH ×2 (10:40→21:05)
[2018-06-09] MEDS: predniSONE 5 MG TABLET (UD) PO SCH (10:40)
[2018-06-09] MEDS: CEFTRIAXONE 1 GM in DEXTROSE 5%-WATER - 50 ML IVPB SCH (10:41)
--- NOTE | 2018-06-09 11:24 | PN ---
Progress Note (short form) - Note Progress Note: NEUROLOGY PROGRESS: Events reviewed and discussed with KAMILA Caicedo and GINAFRANCO Bates. Found on UC +Klebsiella, currently on ceftriaxone. Pending d/c back to [place] [facility] on PO Ceftin. A1c 8.9% NEURO: awake, alert, oriented x 3. CNII-CNXII: OS opacified. Motor: Strength normal except R PF 4-/5. Reflexes normal except AJ's. Sensation: Decreased vibration toes. Gait: Variable, unsteady. Impression: Fall with head trauma complicated by Toxic-Metabolic Encephalopathy (urosepsis)- improved on antibiotics Peripheral Neuropathy (c/w diabetes) +/- right S1 radiculopathy Chronic multifactorial gait dysfunction due to above Suggest: Continue antibiotics and hydration Continue strict blood sugar control, monitor for recurrent falls and possible contribution of diabetic dysautonomia No specific neuro rx at this time PT for gait with walker Thank you very much, Gama Diamond MD
--- NOTE | 2018-06-09 11:29 | DS ---
Physical Examination Vital Signs: Vital Signs Temperature 98.2 F 06/09/18 05:31 Pulse Rate 64 06/09/18 05:31 Respiratory Rate 18 06/09/18 05:31 Blood Pressure 155/60 06/09/18 05:31 O2 Sat by Pulse Oximetry (%) 100 06/09/18 04:00 Findings/Remarks: Patient is a 68 y/o male with past medical history of NIDDM, ESRD s/p cadaveric renal transplant, L AVF (past dialysis), CAD s/p stent 06/24, Chronic ostemyelitis, chronic R foot ulcer. Patient presented to ER from SNF s/p mechanical fall. In ER noted with UTI and treated with IV ABT. Completed course of IV ABT and will be discharged with PO ABT. Constitutional: Yes: No Distress, Calm HENT: Yes: Atraumatic Cardiovascular: Yes: Regular Rate and Rhythm Respiratory: Yes: Regular, CTA Bilaterally Gastrointestinal: Yes: Normal Bowel Sounds, Soft Musculoskeletal: Yes: Muscle Weakness Extremities: Yes: WNL Edema: No Neurological: Yes: Alert, Pre-Existing Deficit Psychiatric: Yes: Alert Labs: CBC, BMP 06/09/18 06:25 06/09/18 06:25 Discharge Summary Reason For Visit: UTI/HYPERGLYCEMIA/KIDNEY TRANSPLANT RECIPIENT Current Active Problems CKD (chronic kidney disease) (Acute) Fall (Acute) Hyperglycemia (Acute) Renal transplant recipient (Acute) UTI (urinary tract infection) (Acute) Uncontrolled diabetes mellitus (Acute) Unintentional weight loss (Acute) Hospital Course: see progress notes Laboratory Tests 06/04/18 06/04/18 06/04/18 12:47 12:47 13:48 WBC 6.0 RBC 4.23 Hgb 11.5 L Hct 36.1 MCV 85.4 MCH 27.1 MCHC 31.7 L RDW 20.5 H Plt Count 322 MPV 6.9 L Absolute Neuts (auto) 4.3 Neutrophils % 71.3 D Lymphocytes % 16.6 D Monocytes % 11.0 H Eosinophils % 0.5 Basophils % 0.6 Nucleated RBC % 0 Hypochromia 0 Platelet Estimate Normal Polychromasia 0 Poikilocytosis 1+ Anisocytosis 1+ Microcytosis 1+ Macrocytosis 0 Ovalocytes 1+ Sodium 135 L Potassium 4.9 Chloride 100 Carbon Dioxide 29 Anion Gap 6 L BUN 28 H Creatinine 1.1 Creat Clearance w eGFR 66.77 POC Glucometer Random Glucose 413 H* Hemoglobin A1c % Calcium 10.1 Phosphorus Magnesium Total Bilirubin 0.4 AST 21 ALT 28 Alkaline Phosphatase 108 Troponin I < 0.02 Total Protein 6.9 Albumin 3.1 L Urine Color Urine Appearance Urine pH Ur Specific [place] Urine Protein Urine Glucose (UA) Urine Ketones Urine Blood Urine Nitrite Urine Bilirubin Urine Urobilinogen Ur Leukocyte Esterase Urine WBC (Auto) Urine RBC (Auto) Urine Casts (Auto) U Epithel Cells (Auto) Urine Bacteria (Auto) Acetone, Qual Negative 06/04/18 06/04/18 06/04/18 15:06 15:19 16:56 WBC RBC Hgb Hct MCV MCH MCHC RDW Plt Count MPV Absolute Neuts (auto) Neutrophils % Lymphocytes % Monocytes % Eosinophils % Basophils % Nucleated RBC % Hypochromia Platelet Estimate Polychromasia Poikilocytosis Anisocytosis Microcytosis Macrocytosis Ovalocytes Sodium Potassium Chloride Carbon Dioxide Anion Gap BUN Creatinine Creat Clearance w eGFR POC Glucometer 513 456 Random Glucose Hemoglobin A1c % Calcium Phosphorus Magnesium Total Bilirubin AST ALT Alkaline Phosphatase Troponin I Total Protein Albumin Urine Color Yellow Urine Appearance Clear Urine pH 6.5 Ur Specific [place] 1.022 Urine Protein Negative Urine Glucose (UA) 3+ H Urine Ketones Negative Urine Blood Negative Urine Nitrite Positive H Urine Bilirubin Negative Urine Urobilinogen 0.2 Ur Leukocyte Esterase 1+ H Urine WBC (Auto) 35 Urine RBC (Auto) 1 Urine Casts (Auto) 1 U Epithel Cells (Auto) 0.2 Urine Bacteria (Auto) 2407.4 Acetone, Qual 06/04/18 06/04/18 06/04/18 19:04 19:30 22:38 WBC RBC Hgb Hct MCV MCH MCHC RDW Plt Count MPV Absolute Neuts (auto) Neutrophils % Lymphocytes % Monocytes % Eosinophils % Basophils % Nucleated RBC % Hypochromia Platelet Estimate Polychromasia Poikilocytosis Anisocytosis Microcytosis Macrocytosis Ovalocytes Sodium 138 Potassium 4.8 Chloride 106 Carbon Dioxide 26 Anion Gap 6 L BUN 25 H Creatinine 1.0 Creat Clearance w eGFR 74.53 POC Glucometer 333 375 Random Glucose 352 H* Hemoglobin A1c % Calcium 9.9 Phosphorus Magnesium Total Bilirubin AST ALT Alkaline Phosphatase Troponin I Total Protein Albumin Urine Color Urine Appearance Urine pH Ur Specific [place] Urine Protein Urine Glucose (UA) Urine Ketones Urine Blood Urine Nitrite Urine Bilirubin Urine Urobilinogen Ur Leukocyte Esterase Urine WBC (Auto) Urine RBC (Auto) Urine Casts (Auto) U Epithel Cells (Auto) Urine Bacteria (Auto) Acetone, Cubby 06/05/18 06/05/18 06/05/18 05:50 05:50 05:50 WBC 3.9 L RBC 3.91 L Hgb 11.0 L Hct 33.5 L MCV 85.7 MCH 28.1 MCHC 32.8 RDW 20.2 H Plt Count 325 MPV 7.2 L Absolute Neuts (auto) 1.8 Neutrophils % 45.9 D Lymphocytes % 36.7 D Monocytes % 15.9 H Eosinophils % 1.1 D Basophils % 0.4 Nucleated RBC % 0 Hypochromia Platelet Estimate Polychromasia Poikilocytosis Anisocytosis Microcytosis Macrocytosis Ovalocytes Sodium 139 Potassium 4.5 Chloride 108 H Carbon Dioxide 27 Anion Gap 5 L BUN 26 H Creatinine 0.8 Creat Clearance w eGFR 96.13 POC Glucometer Random Glucose 103 Hemoglobin A1c % 8.9 H Calcium 9.8 Phosphorus Magnesium 1.8 Total Bilirubin AST ALT Alkaline Phosphatase Troponin I Total Protein Albumin Urine Color Urine Appearance Urine pH Ur Specific [place] Urine Protein Urine Glucose (UA) Urine Ketones Urine Blood Urine Nitrite Urine Bilirubin Urine Urobilinogen Ur Leukocyte Esterase Urine WBC (Auto) Urine RBC (Auto) Urine Casts (Auto) U Epithel Cells (Auto) Urine Bacteria (Auto) AcetoneClarassance 06/05/18 06/05/18 06/05/18 07:23 11:02 17:17 WBC RBC Hgb Hct MCV MCH MCHC RDW Plt Count MPV Absolute Neuts (auto) Neutrophils % Lymphocytes % Monocytes % Eosinophils % Basophils % Nucleated RBC % Hypochromia Platelet Estimate Polychromasia Poikilocytosis Anisocytosis Microcytosis Macrocytosis Ovalocytes Sodium Potassium Chloride Carbon Dioxide Anion Gap BUN Creatinine Creat Clearance w eGFR POC Glucometer 106 238 332 Random Glucose Hemoglobin A1c % Calcium Phosphorus Magnesium Total Bilirubin AST ALT Alkaline Phosphatase Troponin I Total Protein Albumin Urine Color Urine Appearance Urine pH Ur Specific [place] Urine Protein Urine Glucose (UA) Urine Ketones Urine Blood Urine Nitrite Urine Bilirubin Urine Urobilinogen Ur Leukocyte Esterase Urine WBC (Auto) Urine RBC (Auto) Urine Casts (Auto) U Epithel Cells (Auto) Urine Bacteria (Auto) Acetone, Cubby 06/05/18 06/06/18 06/06/18 22:10 06:08 06:30 WBC 4.8 RBC 3.97 L Hgb 10.8 L Hct 33.8 L MCV 85.0 MCH 27.3 MCHC 32.1 RDW 20.6 H Plt Count 332 MPV 7.0 L Absolute Neuts (auto) 2.9 Neutrophils % 60.2 D Lymphocytes % 22.8 D Monocytes % 16.1 H Eosinophils % 0.7 Basophils % 0.2 Nucleated RBC % 0 Hypochromia Platelet Estimate Polychromasia Poikilocytosis Anisocytosis Microcytosis Macrocytosis Ovalocytes Sodium Potassium Chloride Carbon Dioxide Anion Gap BUN Creatinine Creat Clearance w eGFR POC Glucometer 388 315 Random Glucose Hemoglobin A1c % Calcium Phosphorus Magnesium Total Bilirubin AST ALT Alkaline Phosphatase Troponin I Total Protein Albumin Urine Color Urine Appearance Urine pH Ur Specific [place] Urine Protein Urine Glucose (UA) Urine Ketones Urine Blood Urine Nitrite Urine Bilirubin Urine Urobilinogen Ur Leukocyte Esterase Urine WBC (Auto) Urine RBC (Auto) Urine Casts (Auto) U Epithel Cells (Auto) Urine Bacteria (Auto) Acetone, Qual 06/06/18 06/06/18 06/06/18 06:30 11:26 16:08 WBC RBC Hgb Hct MCV MCH MCHC RDW Plt Count MPV Absolute Neuts (auto) Neutrophils % Lymphocytes % Monocytes % Eosinophils % Basophils % Nucleated RBC % Hypochromia Platelet Estimate Polychromasia Poikilocytosis Anisocytosis Microcytosis Macrocytosis Ovalocytes Sodium 137 Potassium 5.1 Chloride 104 Carbon Dioxide 30 Anion Gap 4 L BUN 25 H Creatinine 1.1 Creat Clearance w eGFR 66.57 POC Glucometer 271 180 Random Glucose 357 H* Hemoglobin A1c % Calcium 9.6 Phosphorus Magnesium Total Bilirubin 0.3 AST 10 L ALT 20 Alkaline Phosphatase 92 Troponin I Total Protein 6.1 L Albumin 2.6 L Urine Color Urine Appearance Urine pH Ur Specific [place] Urine Protein Urine Glucose (UA) Urine Ketones Urine Blood Urine Nitrite Urine Bilirubin Urine Urobilinogen Ur Leukocyte Esterase Urine WBC (Auto) Urine RBC (Auto) Urine Casts (Auto) U Epithel Cells (Auto) Urine Bacteria (Auto) Acetone, Qual 06/06/18 06/07/18 06/07/18 21:35 06:09 06:30 WBC 6.9 RBC 3.93 L Hgb 10.6 L Hct 33.5 L MCV 85.3 MCH 27.0 MCHC 31.7 L RDW 20.2 H Plt Count 315 MPV 7.4 L Absolute Neuts (auto) 4.5 Neutrophils % 64.7 Lymphocytes % 20.7 Monocytes % 13.5 H Eosinophils % 0.8 Basophils % 0.3 Nucleated RBC % 0 Hypochromia Platelet Estimate Polychromasia Poikilocytosis Anisocytosis Microcytosis Macrocytosis Ovalocytes Sodium Potassium Chloride Carbon Dioxide Anion Gap BUN Creatinine Creat Clearance w eGFR POC Glucometer 322 253 Random Glucose Hemoglobin A1c % Calcium Phosphorus Magnesium Total Bilirubin AST ALT Alkaline Phosphatase Troponin I Total Protein Albumin Urine Color Urine Appearance Urine pH Ur Specific [place] Urine Protein Urine Glucose (UA) Urine Ketones Urine Blood Urine Nitrite Urine Bilirubin Urine Urobilinogen Ur Leukocyte Esterase Urine WBC (Auto) Urine RBC (Auto) Urine Casts (Auto) U Epithel Cells (Auto) Urine Bacteria (Auto) Acetone, Qual 06/07/18 06/07/18 06/07/18 06:30 12:21 18:23 WBC RBC Hgb Hct MCV MCH MCHC RDW Plt Count MPV Absolute Neuts (auto) Neutrophils % Lymphocytes % Monocytes % Eosinophils % Basophils % Nucleated RBC % Hypochromia Platelet Estimate Polychromasia Poikilocytosis Anisocytosis Microcytosis Macrocytosis Ovalocytes Sodium 135 L Potassium 4.7 Chloride 104 Carbon Dioxide 26 Anion Gap 5 L BUN 26 H Creatinine 1.0 Creat Clearance w eGFR 74.31 POC Glucometer 237 354 Random Glucose 236 H Hemoglobin A1c % Calcium 9.4 Phosphorus 2.8 Magnesium 1.8 Total Bilirubin 0.3 AST 12 L ALT 20 Alkaline Phosphatase 100 Troponin I Total Protein 6.1 L Albumin 2.5 L Urine Color Urine Appearance Urine pH Ur Specific [place] Urine Protein Urine Glucose (UA) Urine Ketones Urine Blood Urine Nitrite Urine Bilirubin Urine Urobilinogen Ur Leukocyte Esterase Urine WBC (Auto) Urine RBC (Auto) Urine Casts (Auto) U Epithel Cells (Auto) Urine Bacteria (Auto) Acetone, Qual 06/07/18 06/08/18 06/08/18 22:03 06:41 11:30 WBC RBC Hgb Hct MCV MCH MCHC RDW Plt Count MPV Absolute Neuts (auto) Neutrophils % Lymphocytes % Monocytes % Eosinophils % Basophils % Nucleated RBC % Hypochromia Platelet Estimate Polychromasia Poikilocytosis Anisocytosis Microcytosis Macrocytosis Ovalocytes Sodium Potassium Chloride Carbon Dioxide Anion Gap BUN Creatinine Creat Clearance w eGFR POC Glucometer 281 210 258 Random Glucose Hemoglobin A1c % Calcium Phosphorus Magnesium Total Bilirubin AST ALT Alkaline Phosphatase Troponin I Total Protein Albumin Urine Color Urine Appearance Urine pH Ur Specific [place] Urine Protein Urine Glucose (UA) Urine Ketones Urine Blood Urine Nitrite Urine Bilirubin Urine Urobilinogen Ur Leukocyte Esterase Urine WBC (Auto) Urine RBC (Auto) Urine Casts (Auto) U Epithel Cells (Auto) Urine Bacteria (Auto) Acetone, Qual 06/08/18 06/08/18 06/09/18 16:19 21:55 05:44 WBC RBC Hgb Hct MCV MCH MCHC RDW Plt Count MPV Absolute Neuts (auto) Neutrophils % Lymphocytes % Monocytes % Eosinophils % Basophils % Nucleated RBC % Hypochromia Platelet Estimate Polychromasia Poikilocytosis Anisocytosis Microcytosis Macrocytosis Ovalocytes Sodium Potassium Chloride Carbon Dioxide Anion Gap BUN Creatinine Creat Clearance w eGFR POC Glucometer 282 224 149 Random Glucose Hemoglobin A1c % Calcium Phosphorus Magnesium Total Bilirubin AST ALT Alkaline Phosphatase Troponin I Total Protein Albumin Urine Color Urine Appearance Urine pH Ur Specific [place] Urine Protein Urine Glucose (UA) Urine Ketones Urine Blood Urine Nitrite Urine Bilirubin Urine Urobilinogen Ur Leukocyte Esterase Urine WBC (Auto) Urine RBC (Auto) Urine Casts (Auto) U Epithel Cells (Auto) Urine Bacteria (Auto) Acetone, Qual 06/09/18 06/09/18 06:25 06:25 WBC 3.7 L RBC 4.30 Hgb 11.7 Hct 36.1 MCV 84.0 MCH 27.2 MCHC 32.3 RDW 19.5 H Plt Count 365 MPV 7.2 L Absolute Neuts (auto) Neutrophils % Lymphocytes % Monocytes % Eosinophils % Basophils % Nucleated RBC % Hypochromia Platelet Estimate Polychromasia Poikilocytosis Anisocytosis Microcytosis Macrocytosis Ovalocytes Sodium 138 Potassium 5.1 Chloride 104 Carbon Dioxide 30 Anion Gap 4 L BUN 28 H Creatinine 0.9 Creat Clearance w eGFR 83.92 POC Glucometer Random Glucose 164 H Hemoglobin A1c % Calcium 10.1 Phosphorus Magnesium Total Bilirubin 0.4 AST 13 L ALT 20 Alkaline Phosphatase 90 Troponin I Total Protein 6.5 Albumin 2.8 L Urine Color Urine Appearance Urine pH Ur Specific [place] Urine Protein Urine Glucose (UA) Urine Ketones Urine Blood Urine Nitrite Urine Bilirubin Urine Urobilinogen Ur Leukocyte Esterase Urine WBC (Auto) Urine RBC (Auto) Urine Casts (Auto) U Epithel Cells (Auto) Urine Bacteria (Auto) Acetone, Qual Active Medications Generic Name Dose Route Start Last Admin Trade Name Dg PRN Reason Stop Dose Admin Amlodipine Besylate 10 mg 06/05/18 10:00 06/09/18 10:39 Norvasc - PO 10 mg DAILY [facility] [place] Administration Azathioprine 150 mg 06/05/18 10:00 06/09/18 10:39 Imuran - PO 150 mg DAILY [facility] [place] Administration Cefuroxime Axetil 500 mg 06/09/18 18:30 [facility] Finasteride 5 mg 06/05/18 10:00 06/09/18 10:39 Proscar - PO 5 mg DAILY [facility] [place] Administration Gabapentin 100 mg 06/04/18 23:45 06/09/18 10:40 Neurontin - PO 100 mg BID [facility] [place] Administration Insulin Aspart 1 vial 06/05/18 23:07 06/09/18 06:12 Novolog Vial Sliding Scale - SQ Not Given ACHS [facility] Protocol Insulin Detemir 18 units 06/07/18 15:30 06/09/18 10:43 Levemir Vial SQ 18 units AM [facility] [place] Administration Isosorbide Dinitrate 20 mg 06/06/18 08:00 06/09/18 10:40 Isordil - PO 20 mg TIDISORDIL [facility] [place] Administration Magnesium Oxide 400 mg 06/05/18 10:00 06/09/18 10:40 Mag-Ox - PO 400 mg BID [facility] [place] Administration Metoprolol Tartrate 25 mg 06/05/18 00:05 06/09/18 10:39 Lopressor - PO 25 mg BID [facility] [place] Administration Prednisone 5 mg 06/05/18 10:00 06/09/18 10:40 Deltasone - PO 5 mg DAILY [facility] [place] Administration Ranitidine HCl 150 mg 06/05/18 22:00 06/08/18 21:58 Zantac - PO 150 mg HS [facility] Administration Tacrolimus 3 mg 06/05/18 01:30 06/09/18 10:40 Prograf PO 3 mg BID [facility] Administration Tamsulosin HCl 0.8 mg 06/05/18 08:30 06/09/18 10:39 Flomax - PO 0.8 mg DAILY@0830 [facility] [place] Administration Microbiology 06/04/18 19:30 Blood - Peripheral Venous Blood Culture - Preliminary NO GROWTH OBTAINED AFTER 96 HOURS, INCUBATION TO CONTINUE FOR 1 DAYS. 06/04/18 19:40 Blood - Peripheral Venous Blood Culture - Preliminary NO GROWTH OBTAINED AFTER 96 HOURS, INCUBATION TO CONTINUE FOR 1 DAYS. 06/04/18 18:11 Urine - Urine Clean Catch Urine Culture - Final Klebsiella Pneumoniae Klebsiella Pneumoniae#2 Condition: Stable - Instructions Diet, Activity, Other Instructions: Continue with antibiotic therapy for 7days continue medication regimen as scheduled return to ER if AMS, respiratory distress, chest pain Disposition: [facility] - Home Medications Comprehensive Discharge Medication List: Ambulatory Orders Ranitidine [Zantac -] 150 mg PO DAILY 04/24/15 Tacrolimus [Astagraf Xl] 3 mg PO BID 04/24/15 Tamsulosin HCl [Flomax -] 0.8 mg PO BID 04/24/15 Azathioprine [Imuran] 150 mg PO DAILY 07/08/17 Isosorbide Mononitrate [Isosorbide Mononitrate ER] 20 mg PO Q8H 07/08/17 Prednisone 5 mg PO DAILY 07/08/17 Amlodipine Besylate [Norvasc -] 10 mg PO DAILY 06/04/18 Finasteride 5 mg PO DAILY 06/04/18 Gabapentin 100 mg PO BID 06/04/18 Insulin Glargine,Hum.rec.anlog [Basaglar Kwikpen U-100] 12 unit SQ DAILY Insulin Lispro [Humalog] 0 unit SQ ASDIR 06/04/18 Magnesium 400 mg PO BID 06/04/18 Metoprolol Tartrate 25 mg PO Q12H 06/04/18 Amlodipine Besylate [Norvasc -] 10 mg PO DAILY tablet 06/09/18 Azathioprine [Imuran -] 150 mg PO DAILY tablet 06/09/18 Cefuroxime Axetil [Ceftin -] 500 mg PO BID tablet 06/09/18 Finasteride [Proscar -] 5 mg PO DAILY tablet 06/09/18 Gabapentin [Neurontin -] 100 mg PO BID capsule 06/09/18 Insulin (Levemir) [Levemir Vial] 18 units SQ AM units 06/09/18 Insulin Sliding Scale [Novolog Vial Sliding Scale -] 1 vial SQ ACHS units 06/09 Isosorbide Dinitrate [Isordil -] 20 mg PO TIDISORDIL tablet 06/09/18 Magnesium Oxide [Mag-Ox -] 400 mg PO BID tablet 06/09/18 Metoprolol Tartrate [Lopressor -] 25 mg PO BID tablet 06/09/18 Ranitidine [Zantac -] 150 mg PO HS tablet 06/09/18 Tacrolimus Anhydrous [Prograf] 3 mg PO BID capsule 06/09/18 Tamsulosin HCl [Flomax -] 0.8 mg PO DAILY@0830 cap.er.24h 06/09/18
--- NOTE | 2018-06-09 16:37 | PN ---
Progress Note, Physician History of Present Illness: AWAKE, ALERT DENIES DYSURIA/ HEMATURIA/ FREQUENCY/URGENCY NO C/O F/C AFEBRILE WBC WNL BC (-) URINE C/S klebsiella - Current Medication List Current Medications: Active Medications Amlodipine Besylate (Norvasc -) 10 mg PO DAILY [facility] Last Admin: 06/09/18 10:39 Dose: 10 mg Azathioprine (Imuran -) 150 mg PO DAILY [facility] Last Admin: 06/09/18 10:39 Dose: 150 mg [facility] Finasteride (Proscar -) 5 mg PO DAILY [facility] Last Admin: 06/09/18 10:39 Dose: 5 mg Gabapentin (Neurontin -) 100 mg PO BID [facility] Last Admin: 06/09/18 10:40 Dose: 100 mg Insulin Aspart (Novolog Vial Sliding Scale -) 1 vial SQ [facility]; Protocol Last Admin: 06/09/18 12:43 Dose: 6 units Insulin Detemir (Levemir Vial) 18 units SQ AM [facility] Last Admin: 06/09/18 10:43 Dose: 18 units Isosorbide Dinitrate (Isordil -) 20 mg PO TIDISORDIL [facility] Last Admin: 06/09/18 14:46 Dose: 20 mg Magnesium Oxide (Mag-Ox -) 400 mg PO BID [facility] Last Admin: 06/09/18 10:40 Dose: 400 mg Metoprolol Tartrate (Lopressor -) 25 mg PO BID [facility] Last Admin: 06/09/18 10:39 Dose: 25 mg Prednisone (Deltasone -) 5 mg PO DAILY [facility] Last Admin: 06/09/18 10:40 Dose: 5 mg Ranitidine HCl (Zantac -) 150 mg PO HS [facility] Last Admin: 06/08/18 21:58 Dose: 150 mg Tacrolimus (Prograf) 3 mg PO BID [facility] Last Admin: 06/09/18 10:40 Dose: 3 mg Tamsulosin HCl (Flomax -) 0.8 mg PO DAILY@0830 [facility] Last Admin: 06/09/18 10:39 Dose: 0.8 mg - Objective Vital Signs: Vital Signs Temperature 98.1 F 06/09/18 15:00 Pulse Rate 60 06/09/18 15:00 Respiratory Rate 20 06/09/18 15:00 Blood Pressure 131/53 L 06/09/18 15:00 O2 Sat by Pulse Oximetry (%) 96 06/09/18 09:00 Constitutional: Yes: No Distress Cardiovascular: Yes: Regular Rate and Rhythm, S1, S2 Respiratory: Yes: CTA Bilaterally Gastrointestinal: Yes: Normal Bowel Sounds, Soft. No: Tenderness Edema: No Labs: CBC, BMP 06/09/18 06:25 06/09/18 06:25 Assessment/Plan UTI R/O SEPSIS SECONDARY TO UTI TOXIC METABOLIC ENCEPHALOPATHY IMPROVED UNCONTROLLED DM S/P RENAL TRANSPLANT OK TO SUBSTITUTE PO ANTIBIOTIC ADDITIONAL 7D
[2018-06-09 16:58] VITALS: BP 123/58; PULSE 63; TEMP 97.5
[2018-06-09] MEDS ORDERED: CEFUROXIME AXETIL 500 MG TABLET PO SCH (18:30)
[2018-06-09] MEDS: RANITIDINE HCL 150 MG TABLET (FP) PO SCH (21:05)
[2018-06-10 08:06] LABS: CARCINOEMBRYONIC ANTIGEN 8.4 ng/mL (0.0-4.7)
== END 2018-06-09 21:15 | DRG 689 ==
LOC: JER 11:58 → JERBED 16:10 → OBSVTOIN 06-05 16:10 → J8W 06-05 20:19
PROVIDERS: ADMIT Family Medicine; ATTEND Family Medicine
DX: N39.0 Urinary tract infection, site not specified (principal); G93.41 Metabolic encephalopathy; L97.508 Non-pressure chronic ulcer of other part of unspecified foot with other specified severity; Z94.0 Kidney transplant status; M86.671 Other chronic osteomyelitis, right ankle and foot; I25.10 Atherosclerotic heart disease of native coronary artery without angina pectoris; E11.65 Type 2 diabetes mellitus with hyperglycemia; E11.621 Type 2 diabetes mellitus with foot ulcer; E11.51 Type 2 diabetes mellitus with diabetic peripheral angiopathy without gangrene; G56.00 Carpal tunnel syndrome, unspecified upper limb; D72.819 Decreased white blood cell count, unspecified; R07.89 Other chest pain; H54.40 Blindness, one eye, unspecified eye; I12.9 Hypertensive chronic kidney disease with stage 1 through stage 4 chronic kidney disease, or unspecified chronic kidney disease; E11.22 Type 2 diabetes mellitus with diabetic chronic kidney disease; N18.9 Chronic kidney disease, unspecified; W18.30XA Fall on same level, unspecified, initial encounter; Y92.89 Other specified places as the place of occurrence of the external cause; R55 Syncope and collapse; R63.4 Abnormal weight loss; Z68.23 Body mass index [BMI] 23.0-23.9, adult; R26.9 Unspecified abnormalities of gait and mobility; B96.1 Klebsiella pneumoniae [K. pneumoniae] as the cause of diseases classified elsewhere; Z95.5 Presence of coronary angioplasty implant and graft; Z89.429 Acquired absence of other toe(s), unspecified side
CPT/HCPCS: 36415; 70450-TC; 71045-TC-FY; 76775-TC; 80048; 80053; 80197; 81003; 82009; 82105; 82378; 82962; 83036; 83735; 84100; 84484; 85025; 85027; 86301; 87040; 87086; 87186; 93005; 93010; 97116-GP; 97161-GP; 99285-25; G0378

== ENCOUNTER 2018-06-26 09:22 | Emergency (ER) | payer OTHER ==
[2018-06-26 09:27] VITALS: BMI 25.8
[2018-06-26 09:46] VITALS: BP 160/56; PULSE 79; TEMP 98
--- NOTE | 2018-06-26 10:41 | PDOC ---
History of Present Illness - General Chief Complaint: Nausea/Vomiting Stated Complaint: VOMITING Time Seen by Provider: 06/26/18 10:41 History Source: Patient Exam Limitations: Language Barrier - History of Present Illness Initial Comments: 06/26/18 11:42 68 y/o man with a PMHx of IDDM, ESRD s/p Cadaveric Renal Transplant, L-AVF ( past dialysis), CAD s/p Stent 06/24, Chronic Osteomyelitis, Chronic Right Foot Ulcer presents today with one day history of lower back pain. He describes constant non radiating 3/10 left sided lower back pain. Pain associated with coughing and nausea. Some clear sputum production. Denies CP,SANTANA, SOB, abdominal pain, vomiting, fever or chills. Timing/Duration: 24 hours Severity: mild Modifying Factors: improves with: movement Past History - Travel Traveled outside of the country in the last 30 days: No Close contact w/someone who was outside of country & ill: No - Past Medical History Allergies/Adverse Reactions: Allergies Allergy/AdvReac Type Severity Reaction Status Date / Time No Known Allergies Allergy Verified 12/08/17 17:31 Home Medications: Ambulatory Orders Tacrolimus [Astagraf Xl] 3 mg PO BID 04/24/15 Azathioprine [Imuran] 150 mg PO DAILY 07/08/17 Isosorbide Mononitrate [Isosorbide Mononitrate ER] 20 mg PO Q8H 07/08/17 Prednisone 5 mg PO DAILY 07/08/17 Amlodipine Besylate [Norvasc -] 10 mg PO DAILY 06/04/18 Finasteride 5 mg PO DAILY 06/04/18 Gabapentin 100 mg PO BID 06/04/18 Magnesium Oxide [Mag-Ox -] 400 mg PO BID tablet 06/09/18 Metoprolol Tartrate [Lopressor -] 25 mg PO BID tablet 06/09/18 Ranitidine [Zantac -] 150 mg PO HS tablet 06/09/18 Anemia: No Asthma: No Cancer: No Cardiac Disorders: Yes (CAD, stent) CVA: No COPD: No CHF: No DVT: No Dementia: No Diabetes: Yes Dialysis: No (kidney transplatn,lt arm fistula) GI Disorders: Yes Disorders: No HTN: Yes Hypercholesterolemia: Yes Liver Disease: No Seizures: No Thyroid Disease: No - Surgical History Abdominal Surgery: Yes (hernia) Appendectomy: No Cardiac Surgery: Yes (stent placement) Cholecystectomy: No Lung Surgery: No Neurologic Surgery: No Orthopedic Surgery: Yes (debridement or R foot diabetic ulcer) - Suicide/Smoking/Psychosocial Hx Smoking History: Never smoked Have you smoked in the past 12 months: No Information on smoking cessation initiated: No Hx Alcohol Use: No Drug/Substance Use Hx: No Substance Use Type: None Hx Substance Use Treatment: No Review of Systems - Review of Systems Constitutional: No: Chills, Diaphoresis, Fever, Loss of Appetite HEENTM: No: Recent change in vision Respiratory: Yes: Cough, Productive cough. No: Shortness of Breath, SOB with Exertion, Wheezing Cardiac (ROS): No: Chest Pain, Edema, Irregular Heart Rate ABD/GI: Yes: Nausea. No: Abdominal Distended, Difficulty Swallowing, Vomiting : No: Burning, Dysuria, Flank Pain *Physical Exam - Vital Signs Last Vital Signs Temp Pulse Resp BP Pulse Ox 98.0 F 79 16 160/56 L 98 06/26/18 09:25 06/26/18 09:25 06/26/18 09:25 06/26/18 09:25 06/26/18 09:25 - Physical Exam General Appearance: Yes: Appropriately Dressed. No: Apparent Distress HEENT: positive: CLEM, Symmetrical Neck: positive: Supple Respiratory/Chest: positive: Lungs Clear, Normal Breath Sounds. negative: Respiratory Distress, Accessory Muscle Use Cardiovascular: positive: Regular Rhythm, Regular Rate, S1, S2, Systolic Murmur. negative: Edema, JVD Vascular Pulses: Dorsalis-Pedis (R): 2+, Doralis-Pedis (L): 2+ Gastrointestinal/Abdominal: positive: Normal Bowel Sounds, Flat, Soft, Hernia ( large ventral hernia) Musculoskeletal: positive: Normal Inspection, Other (left ). negative: CVA Tenderness Integumentary: positive: Normal Color, Dry, Warm Neurologic: positive: Alert ED Treatment Course - LABORATORY CBC & Chemistry Diagram: 06/26/18 12:40 06/26/18 12:40 Medical Decision Making - Medical Decision Making 06/26/18 12:02 68 y/o man with a PMHx of IDDM, ESRD s/p Cadaveric Renal Transplant, L-AVF ( past dialysis), CAD s/p Stent 06/24, Chronic Osteomyelitis, Chronic Right Foot Ulcer presents today with one day history of lower back pain. Given history of renal transplant will send for basic labs to r/o infection. -Tylenol for pain. CBC, CMP ,UA 06/26/18 14:23 - Labs did not show any signs of infection. Patient feels much better. - Will discharge home with follow up for PMD. *DC/Admit/Observation/Transfer Diagnosis at time of Disposition: Back pain with left-sided radiculopathy - Discharge Dispostion Disposition: HOME Condition at time of disposition: Stable Decision to Admit order: No - Referrals Referrals: ON STAFF,NOT [Primary Care Provider] - - Patient Instructions Printed Discharge Instructions: DI for Low Back Pain Additional Instructions: Increase activity as tolerated. Resume a diabetic diet. Take all medication as previously perscribed. Follow up with your primary doctor this week. If pain worsens or you develop fever of chills please return to ER immediately. Upper Sorbian: Aumentar la actividad segn lo tolerado. Reanudar maria e dieta diabtica. Mila todos los medicamentos jong se santana descrito anteriormente. Zev un seguimiento con deluna mdico de cabecera esta semana. Si el dolor empeora o presenta fiebre por escalofros, vuelva a la eric de emergencias inmediatamente Print Language: ALBANIAN - Post Discharge Activity
[2018-06-26] MEDS ORDERED: ACETAMINOPHEN 325 MG TABLET (FP) ONE (11:33)
[2018-06-26 12:51] LABS: EPI CELLS 0.1 /HPF (0-5/HPF); PH,URINE 6.5 (5.0-8.0); URINE APPEARANCE CLEAR; URINE BACTERIA 1110.3 /hpf (NEGATIVE); URINE BILIRUBIN NEGATIVE (NEGATIVE); URINE CASTS 3 /lpf (0-8); URINE COLOR YELLOW; URINE GLUCOSE (UA) 3+ (NEGATIVE); URINE KETONE NEGATIVE (NEGATIVE); URINE LEUK ESTERASE TRACE (NEGATIVE); URINE NITRITE NEGATIVE (NEGATIVE); URINE PROTEIN 1+ (NEGATIVE); URINE RBC 5 /hpf (0-4); URINE UROBILINOGEN 0.2 mg/dL (0.2-1.0); URINE WBC 29 /hpf (0-5)
[2018-06-26 12:55] LABS: BASO % 0.3 % (0-2.0); EOS % 0.6 % (0-4.5); HEMATOCRIT 36.5 % (35.4-49); HEMOGLOBIN 11.4 GM/dL (11.7-16.9); LYMPH % 14.1 % (8-40); MCH 26.6 pg (25.7-33.7); MCHC 31.3 g/dl (32.0-35.9); MEAN CELL VOLUME 84.7 fl (80-96); MONO % 10.8 % (3.8-10.2); NEUT % 74.2 % (42.8-82.8); PLATELET COUNT 231 K/MM3 (134-434); RDW 18.6 % (11.9-15.9); WHITE BLOOD COUNT 8.1 K/mm3 (4.0-10.0)
[2018-06-26 13:19] LABS: ALBUMIN 2.9 g/dl (3.4-5.0); BILIRUBIN,TOTAL 0.5 mg/dL (0.2-1); CALCIUM 9.4 mg/dL (8.5-10.1); POTASSIUM 4.5 mmol/L (3.5-5.1); TOT PROT 6.3 g/dl (6.4-8.2)
--- NOTE | 2018-06-26 13:45 | PDOC ---
Documentation entered by Osmel Chavez SCRIBE, acting as scribe for Kentrell Garcia MD. Kentrell Garcia MD: This documentation has been prepared by the Scott vargas Daniel, SCRIBE, under my direction and personally reviewed by me in its entirety. I confirm that the documentation accurately reflects all work, treatment, procedures, and medical decision making performed by me. Attending Attestation - Resident Resident Name: Ian Esteves - ED Attending Attestation I have performed the following: I have examined & evaluated the patient, The case was reviewed & discussed with the resident, I agree w/resident's findings & plan, Exceptions are as noted - HPI HPI: 06/26/18 11:41 The patient is a 68 year old male with a past medical history of IDDM, renal transplant (right kidney), CAD s/p stent, and diabetic foot ulcers here today for evaluation of back pain. The patient reports that he has been having left sided paraspinal back pain that he describes as 3/10, constant, and reproducible to palpation since last night. He called EMS today due to the increase in severity. Patient's also reports that he had a coughing fit and spit up some white sputum. Patient denies headache, lightheadedness. Denies fever, chills. Denies chest pain, shortness of breath. Denies nausea, vomiting, diarrhea, abdominal pain. Allergies: NKA - Physicial Exam PE: 06/26/18 11:54 GENERAL: The patient is awake, alert, and fully oriented, Nontoxic - in no acute distress. HEAD: Normocephalic, atraumatic. EYES: extraocular movements intact, sclera anicteric, conjunctiva clear. ENT: Normal voice, Moist mucous membranes. NECK: Normal range of motion, supple LUNGS: Breath sounds equal, clear to auscultation bilaterally. No wheezes, no rhonchi, no rales. HEART: Regular rate and rhythm, normal S1 and S2 without murmur, rub or gallop. ABDOMEN: Soft, nontender, large reducible abdominal hernia, no tenderness over kidney transplant EXTREMITIES: Normal range of motion, no edema. No clubbing or cyanosis. No cords, erythema, or tenderness. NEUROLOGICAL: No facial assymetry, Normal speech, moving all 4 ext spontaneously and symmetrically BACK: no focal ttp to midline or paraspinal region, no rashes, no fluctuance, erythema/induration PSYCH: Normal mood, normal affect. SKIN: Warm, Dry, normal turgor, - Medical Decision Making 06/26/18 11:38 68y m sp kidney transplant, CAD, DM ulcers, presents with complaint of mild L back pain yesterday - there was posible cough vs vomiting - but pt denies any complaints beside minimal L back pain without focal neuro complaints, urinary complents, denies n/v, f/c, sob, cp. pt well appearing, in n odistress, normal vitals will obtain basic blood work to monae cook, cr will reassess, anticipate dc 06/26/18 16:38 labs reviewed - unremarkable pt feelnig better will dc with pmd fu
== END 2018-06-26 14:38 | disposition home or self-care (01) ==
LOC: JER 09:22
DX: M54.16 Radiculopathy, lumbar region (principal); I25.10 Atherosclerotic heart disease of native coronary artery without angina pectoris; I13.11 Hypertensive heart and chronic kidney disease without heart failure, with stage 5 chronic kidney disease, or end stage renal disease; N18.6 End stage renal disease; I24.9 Acute ischemic heart disease, unspecified; Z94.0 Kidney transplant status; Z95.5 Presence of coronary angioplasty implant and graft
CPT/HCPCS: 36415; 80053; 81003; 85025; 99282-25

== ENCOUNTER 2018-06-29 11:37 | Inpatient (IN) | payer OTHER | END 2018-07-01 13:38 | disposition home or self-care (01) | LOC: JER 11:37 → J8W 06-30 17:20 → JERBED 17:12 ==

== ENCOUNTER 2018-09-13 09:54 | Inpatient (IN) | payer OTHER ==
[2018-09-13] MEDS ORDERED: ACETAMINOPHEN 1000 MG/100 ML VIAL (NON FORMULARY) IVPB ONE (10:12)
[2018-09-13] MEDS: INSULIN SLIDING SCALE (NOVOLOG) 1 VIAL SQ SCH (10:15)
--- NOTE | 2018-09-13 10:18 | PDOC ---
Documentation entered by Kunal Olsen SCRIBE, acting as scribe for Lupis Spaulding MD. Lupis Spaulding MD: This documentation has been prepared by the Raúl vargas Elijah, SCRIBE, under my direction and personally reviewed by me in its entirety. I confirm that the documentation accurately reflects all work, treatment, procedures, and medical decision making performed by me. History of Present Illness - General Stated Complaint: FALL Time Seen by Provider: 09/13/18 10:05 History Source: Patient Exam Limitations: No Limitations - History of Present Illness Initial Comments: 09/13/18 10:17 Patient is a 68 year old male with a significant past medical history of HTN, IDDM, CAD (s/p stent 06/24), s/p renal transplant, recent UTI, and CVA who presents to the ED s/p fall with pain in both hands beginning this morning. 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 Patient fell hitting his chest and hands. At this time the patient only reports pain in the digits in both of his hands. Denies CP, Dizziness, head trauma and LOC Allergies: NKA PCP: Dr. Mclain Past History - Past Medical History Allergies/Adverse Reactions: Allergies Allergy/AdvReac Type Severity Reaction Status Date / Time No Known Allergies Allergy Verified 09/13/18 10:19 Home Medications: Ambulatory Orders Tacrolimus [Astagraf Xl] 7 mg PO BID 04/24/15 Azathioprine [Imuran] 150 mg PO DAILY 07/08/17 Isosorbide Mononitrate [Isosorbide Mononitrate ER] 20 mg PO Q8H 07/08/17 Prednisone 5 mg PO DAILY 07/08/17 Amlodipine Besylate [Norvasc -] 5 mg PO DAILY 06/04/18 Finasteride 5 mg PO DAILY 06/04/18 Gabapentin 100 mg PO BID 06/04/18 Magnesium Oxide [Mag-Ox -] 400 mg PO BID tablet 06/09/18 Metoprolol Tartrate [Lopressor -] 25 mg PO BID tablet 06/09/18 Ranitidine [Zantac -] 150 mg PO HS tablet 06/09/18 Cefuroxime Axetil [Ceftin -] 500 mg PO BID #5 tablet 07/01/18 Cinacalcet HCl [Sensipar -] 30 mg PO DAILY 09/13/18 Clopidogrel Bisulfate [Plavix] 75 mg PO 09/13/18 Nebivolol HCl [Bystolic] 20 mg PO 09/13/18 Sitagliptin Phosphate [Januvia] 100 mg PO 09/13/18 Sodium Bicarbonate - 650 mg BID 09/13/18 Tamsulosin HCl 0.4 mg PO 09/13/18 metFORMIN XR [Glucophage *Xr* -] 750 mg PO DAILY 09/13/18 Anemia: No Asthma: No Cancer: No Cardiac Disorders: Yes (CAD, stent) CVA: No COPD: No CHF: No DVT: No Dementia: No Diabetes: Yes Dialysis: No (kidney transplatn,lt arm fistula) GI Disorders: Yes Disorders: No HTN: Yes Hypercholesterolemia: Yes Liver Disease: No Seizures: No Thyroid Disease: No - Surgical History Abdominal Surgery: Yes (hernia) Appendectomy: No Cardiac Surgery: Yes (stent placement) Cholecystectomy: No Lung Surgery: No Neurologic Surgery: No Orthopedic Surgery: Yes (debridement or R foot diabetic ulcer) - Immunization History Immunization Up to Date: Yes - Suicide/Smoking/Psychosocial Hx Smoking History: Never smoked Have you smoked in the past 12 months: No Hx Alcohol Use: No Drug/Substance Use Hx: No Substance Use Type: None Hx Substance Use Treatment: No Review of Systems - Review of Systems Comments:: 09/13/18 10:17 GENERAL/CONSTITUTIONAL: No fever or chills. No weakness. HEAD, EYES, EARS, NOSE AND THROAT: No change in vision. No ear pain or discharge. No sore throat. CARDIOVASCULAR: No chest pain or shortness of breath. RESPIRATORY: No cough, wheezing, or hemoptysis. GASTROINTESTINAL: No nausea, vomiting, diarrhea or constipation. GENITOURINARY: No dysuria, frequency, or change in urination. MUSCULOSKELETAL: +Pain in Digits of Both hands.. No neck or back pain. SKIN: No rash NEUROLOGIC: No headache, vertigo, loss of consciousness, or change in strength/ sensation. ENDOCRINE: No increased thirst. No abnormal weight change. HEMATOLOGIC/LYMPHATIC: No anemia, easy bleeding, or history of blood clots. ALLERGIC/IMMUNOLOGIC: No hives or skin allergy. *Physical Exam - Physical Exam Comments: 09/13/18 10:17 GENERAL: The patient is in no acute distress. HEAD: Normal with no signs of trauma. EYES: PERRLA, EOMI, sclera anicteric, conjunctiva clear. ENT: Ears normal, nares patent, oropharynx clear without exudates. Moist mucous membranes. NECK: Normal range of motion, supple without lymphadenopathy, JVD, or masses. LUNGS: Breath sounds equal, clear to auscultation bilaterally. No wheezes, and no crackles. HEART:Regular rate and rhythm, normal S1 and S2 without murmur, rub or gallop. ABDOMEN:+Surgical Scar on the Right Lower Abdomen. Soft, nontender, normoactive bowel sounds. No guarding, no rebound. No masses palpable. EXTREMITIES: +Fistula on the Left Upper Extremity. +Pain in Both hands on digits. Exquisite tenderness but no bruising and deformities. Normal range of motion, No Lower Extremity edema. No clubbing or cyanosis. No erythema, or tenderness. NEUROLOGICAL: Cranial nerves II through XII grossly intact. Normal speech. No focal neurological deficits. MUSCULOSKELETAL: Back non-tender to palpation, no CVA tenderness SKIN: Warm, Dry, normal turgor, no rashes or lesions noted. ED Treatment Course - LABORATORY CBC & Chemistry Diagram: 09/13/18 10:40 09/13/18 10:40 - RADIOLOGY Radiology Studies Ordered: Category Date Time Status CERVICAL SPINE CT W/O CONTR [CT] Stat CT Scan 09/13/18 10:[address] WITHOUT CONTRAST [CT] Stat CT Scan 09/13/18 10:06 Ordered HAND- LEFT [RAD] Stat Radiology 09/13/18 10:06 Ordered HAND- RIGHT [RAD] Stat Radiology 09/13/18 10:06 Ordered Medical Decision Making - Medical Decision Making 09/13/18 10:12 Mr Hawkins is a 68 yo M h/o IDDM, HTN, ESRD previously on HD, now s/p Renal transplantation, left eye blindness, right foot soteomyelitis Pt presents to the ER s/p fall at home Pt was walking to the kitchen, became unstable, fell forward while trying to open a door No loc No amnesia Pt was found by [employer] laying on his hands and chest No preceding chest pain, shortness of breath, palpitations, headache, focal weakness or numbness Pt currently complaining of severe pain in his hands bilaterally Has not taken pain medications to manage his symptoms DD: Musculoskeletal pain Will do: labs, ekg, CT head/c spine 09/13/18 10:16 EKG - Twelve-lead EKG was performed and reviewed by me. There is normal sinus rhythm with a normal rate of 66 bpm. The axis is normal. The intervals are normal. There are no ST or T wave abnormalities. Impression: Normal twelve-lead EKG 09/13/18 12:02 Laboratory Tests 07/01/18 07/01/18 09/13/18 06:15 06:15 10:40 WBC 4.6 Hgb 11.6 L Hct 37.0 Plt Count 313 INR BUN 23 H Creatinine 0.8 Creatine Kinase 75 Troponin I < 0.02 09/13/18 09/13/18 09/13/18 10:40 10:40 10:40 WBC 4.4 Hgb 12.4 Hct 38.5 Plt Count 263 INR 0.96 BUN 29.1 H Creatinine 1.2 Creatine Kinase Troponin I CBC stable Creatinine slightly elevated as compared to prior (but still normal) Pending CT 09/13/18 12:47 CT head: no ICH, edema, midline shift, mass effect, skull fracture C spine: No acute fracture, compression, subluxation, pre vertebral soft tissue swelling 09/13/18 13:42 Xray chest negative Hand xrays appear to dhow no fractures Will place on observation 09/13/18 15:05 Pt complaining of pain again crying RP 2+ bilaterally *DC/Admit/Observation/Transfer Diagnosis at time of Disposition: Intractable pain Fall from standing Qualifiers: Encounter type: initial encounter Qualified Code(s): W19.XXXA - Unspecified fall, initial encounter - Discharge Dispostion Condition at time of disposition: Stable Decision to Admit order: Yes - Referrals - Patient Instructions - Post Discharge Activity
[2018-09-13] MEDS ORDERED: ACETAMINOPHEN INJECTION 100 ML IVPB ONE (10:43)
[2018-09-13 10:47] LABS: BASO % 0.7 % (0-2.0); EOS % 0.9 % (0-4.5); HEMATOCRIT 38.5 % (35.4-49); HEMOGLOBIN 12.4 GM/dL (11.7-16.9); LYMPH % 30.9 % (8-40); MCH 26.5 pg (25.7-33.7); MCHC 32.3 g/dl (32.0-35.9); MEAN CELL VOLUME 82.1 fl (80-96); MEAN PLT VOLUME 7.4 fl (7.5-11.1); MONO % 10.8 % (3.8-10.2); NEUT % 56.7 % (42.8-82.8); PLATELET COUNT 263 K/MM3 (134-434); RBC 4.69 M/mm3 (4.00-5.60); RDW 18.9 % (11.9-15.9); WHITE BLOOD COUNT 4.4 K/mm3 (4.0-10.0)
[2018-09-13 11:23] LABS: ALBUMIN 3.6 g/dl (3.4-5.0); BLOOD UREA NITROGEN 29.1 mg/dL (7-18); CALCIUM 9.9 mg/dL (8.5-10.1); CREATININE 1.2 mg/dL (0.55-1.3); POTASSIUM 4.2 mmol/L (3.5-5.1)
[2018-09-13 11:55] LABS: INR 0.96 (0.83-1.09); PROTHROMBIN TIME (PATIENT) 11.3 SEC (9.7-13.0)
[2018-09-13] MEDS ORDERED: morphine CARPU-JECT 4 MG/1 ML DISP.SYRIN IVPUSH ONE ×2 (12:08→15:03)
[2018-09-13] MEDS ORDERED: MORPHINE SULFATE 2 MG/ML VIAL ONE (12:31)
[2018-09-13] MEDS ORDERED: morphine SULFATE 4 MG/ML VIAL ONE (15:34)
--- NOTE | 2018-09-13 17:01 | HP ---
Admitting History and Physical - Admission Chief Complaint: S/p Fall History of Present Illness: Patient is a 68 y/o male with past medical history of HTN, IDDM, CAD (s/p stent) , s/p renal transplant, recent UTI and CVA. Patient presented to ER after fall at home. Patient states at 9am this morning he got up to let his [employer] in and fell forward. States after falling experiencing dizziness and pain to bilateral hands. Patient states he does not know if LOC occurred. History Source: Patient, Medical Record Limitations to Obtaining History: No Limitations - Past Medical History Cardiovascular: Yes: HTN Renal/: Yes: Renal Failure, Other (Renal transplant) Endocrine: Yes: Diabetes Mellitus - Past Surgical History Past Surgical History: Yes: AV Fistula/Graft (Left), Kidney Transplant, Stent - Smoking History Smoking history: Never smoked Have you smoked in the past 12 months: No - Alcohol/Substance Use Hx Alcohol Use: No - Social History Usual Living Arrangement: Yes: Alone ADL: Support Services History of Recent Travel: No Home Medications - Allergies Allergies/Adverse Reactions: Allergies Allergy/AdvReac Type Severity Reaction Status Date / Time No Known Allergies Allergy Verified 09/13/18 10:19 - Home Medications Home Medications: Ambulatory Orders Tacrolimus [Astagraf Xl] 7 mg PO BID 04/24/15 Azathioprine [Imuran] 150 mg PO DAILY 07/08/17 Isosorbide Mononitrate [Isosorbide Mononitrate ER] 20 mg PO Q8H 07/08/17 Prednisone 5 mg PO DAILY 07/08/17 Amlodipine Besylate [Norvasc -] 5 mg PO DAILY 06/04/18 Finasteride 5 mg PO DAILY 06/04/18 Gabapentin 100 mg PO BID 06/04/18 Magnesium Oxide [Mag-Ox -] 400 mg PO BID tablet 06/09/18 Metoprolol Tartrate [Lopressor -] 25 mg PO BID tablet 06/09/18 Ranitidine [Zantac -] 150 mg PO HS tablet 06/09/18 Cefuroxime Axetil [Ceftin -] 500 mg PO BID #5 tablet 07/01/18 Cinacalcet HCl [Sensipar -] 30 mg PO DAILY 09/13/18 Clopidogrel Bisulfate [Plavix] 75 mg PO 09/13/18 Nebivolol HCl [Bystolic] 20 mg PO 09/13/18 Sitagliptin Phosphate [Januvia] 100 mg PO 09/13/18 Sodium Bicarbonate - 650 mg BID 09/13/18 Tamsulosin HCl 0.4 mg PO 09/13/18 metFORMIN XR [Glucophage *Xr* -] 750 mg PO DAILY 09/13/18 Review of Systems - Review of Systems Constitutional: reports: Weakness Eyes: reports: No Symptoms HENT: reports: No Symptoms Neck: reports: No Symptoms Cardiovascular: reports: No Symptoms Respiratory: reports: No Symptoms Gastrointestinal: reports: No Symptoms Genitourinary: reports: No Symptoms Breasts: reports: No Symptoms Reported Musculoskeletal: reports: Extremity Pain (b/l hand pain), Muscle Weakness Integumentary: reports: No Symptoms Neurological: reports: No Symptoms Endocrine: reports: No Symptoms Hematology/Lymphatic: reports: No Symptoms Psychiatric: reports: No Symptoms Physical Examination Vital Signs: Vital Signs Temperature 97.8 F 09/13/18 10:14 Pulse Rate 66 09/13/18 10:14 Respiratory Rate 17 09/13/18 10:14 Blood Pressure 219/66 H 09/13/18 10:14 O2 Sat by Pulse Oximetry (%) 100 09/13/18 10:14 Constitutional: Yes: No Distress, Calm Eyes: Yes: Other HENT: Yes: Atraumatic Cardiovascular: Yes: Regular Rate and Rhythm Respiratory: Yes: Regular, CTA Bilaterally Gastrointestinal: Yes: Normal Bowel Sounds, Soft Musculoskeletal: Yes: Muscle Weakness, Other (b/l hand pain) Extremities: Yes: WNL Edema: No Neurological: Yes: Alert Psychiatric: Yes: Alert Labs: CBC, BMP 09/13/18 10:40 09/13/18 10:40 Imaging - Results X-ray: Report Reviewed Cat Scan: Report Reviewed Problem List - Problems (1) Fall from standing Assessment/Plan: -PT -fall precautions -Head CT shows no acute intracranial hemorrhage, edema, midline shift, mass effect, or skull fracture, no CT evidence of acute territorial infarction, atrophic left ocular globe, hyperdense secretion intrasinus calcification in the left maxillary sinus -Hand xray shows no fracture or acute pathology, old ununited fracture of the right ulnar styloid process -Cervical CT shows no evidence of acute fracture, compression deformities, subluxation, prevertebral soft tissue swelling -UA/UC ordered Code(s): W19.XXXA - UNSPECIFIED FALL, INITIAL ENCOUNTER Qualifiers: Encounter type: initial encounter Qualified Code(s): W19.XXXA - Unspecified fall, initial encounter (2) Intractable pain Assessment/Plan: -pain control Code(s): R52 - PAIN, UNSPECIFIED (3) CKD (chronic kidney disease) Assessment/Plan: -renal consult -BUN/Cr 29.1/1.2 -s/p renal transplant -renal/diabetic diet Code(s): N18.9 - CHRONIC KIDNEY DISEASE, UNSPECIFIED (4) Diabetes mellitus Assessment/Plan: -BGM ACHS -ISS -HgA1c -diabetic diet Code(s): E11.9 - TYPE 2 DIABETES MELLITUS WITHOUT COMPLICATIONS (5) Renal transplant recipient Assessment/Plan: -Renal on board -BUN/Cr 29.1/1.2 -Imuran, Tacrolimus Code(s): Z94.0 - KIDNEY TRANSPLANT STATUS (6) Hyperlipidemia Assessment/Plan: -lipid panel Code(s): E78.5 - HYPERLIPIDEMIA, UNSPECIFIED Qualifiers: Hyperlipidemia type: pure hypercholesterolemia Qualified Code(s): E78.00 - Pure hypercholesterolemia, unspecified; E78.0 - Pure hypercholesterolemia (7) Hypertension Assessment/Plan: -Amlodipine, Bystolic -low Na diet Code(s): I10 - ESSENTIAL (PRIMARY) HYPERTENSION Qualifiers: Hypertension type: essential hypertension Qualified Code(s): I10 - Essential (primary) hypertension Assessment/Plan see problem list dvt ppx
[2018-09-13 19:36] VITALS: BMI 20.5
[2018-09-13] MEDS: HEPARIN NA (PORCINE) 5,000 UNITS/ML 1ML VIAL SQ SCH (21:56)
[2018-09-13] MEDS: SODIUM BICARBONATE 650 MG TABLET PO SCH (21:56)
[2018-09-14] MEDS: traMADol HCL 50 MG TABLET PO PRN (06:42)
[2018-09-14] MEDS: INSULIN SLIDING SCALE (NOVOLOG) 1 VIAL SQ SCH ×4 (06:43→22:30)
[2018-09-14 08:06] LABS: BASO % 0.2 % (0-2.0); EOS % 0.4 % (0-4.5); HEMATOCRIT 35.8 % (35.4-49); HEMOGLOBIN 11.7 GM/dL (11.7-16.9); LYMPH % 25.1 % (8-40); MCH 26.8 pg (25.7-33.7); MCHC 32.7 g/dl (32.0-35.9); MEAN CELL VOLUME 81.9 fl (80-96); MEAN PLT VOLUME 7.7 fl (7.5-11.1); MONO % 12.2 % (3.8-10.2); NEUT % 62.1 % (42.8-82.8); PLATELET COUNT 262 K/MM3 (134-434); RBC 4.37 M/mm3 (4.00-5.60); RDW 19.3 % (11.9-15.9); WHITE BLOOD COUNT 4.3 K/mm3 (4.0-10.0)
[2018-09-14 08:10] LABS: ALBUMIN 3.6 g/dl (3.4-5.0); BILIRUBIN,TOTAL 0.9 mg/dL (0.2-1); BLOOD UREA NITROGEN 31.5 mg/dL (7-18); CALCIUM 9.7 mg/dL (8.5-10.1); CREATININE 1.2 mg/dL (0.55-1.3); MAGNESIUM 1.2 mg/dL (1.8-2.4); PHOSPHOROUS 3.1 mg/dL (2.5-4.9); POTASSIUM 4.3 mmol/L (3.5-5.1); TOT PROT 7.1 g/dl (6.4-8.2)
[2018-09-14] MEDS: SODIUM BICARBONATE 650 MG TABLET PO SCH ×2 (10:34→22:27)
[2018-09-14] MEDS: CLOPIDOGREL BISULFATE 75 MG TABLET (FP) PO SCH (10:34)
[2018-09-14] MEDS: amLODIPine BESYLATE 5 MG TABLET (FP) PO SCH (10:34)
[2018-09-14] MEDS: ISOSORBIDE MONONITRATE 20 MG TABLET PO SCH ×3 (10:34→17:05)
[2018-09-14] MEDS: TAMSULOSIN HCL 0.4 MG CAP PO SCH (10:35)
[2018-09-14] MEDS: HEPARIN NA (PORCINE) 5,000 UNITS/ML 1ML VIAL SQ SCH ×2 (10:35→22:27)
[2018-09-14] MEDS: ACETAMINOPHEN 325 MG TABLET (FP) PO PRN ×2 (10:40→22:53)
--- NOTE | 2018-09-14 10:42 | PN ---
Progress Note, Physician Chief Complaint: S/p Fall B/L Hand Pain Hx of Renal Transplant DM History of Present Illness: Previous notes and events reviewed awake and alert NAD continue to complain of hand pain denies chest pain or SOB - Current Medication List Current Medications: Active Medications Acetaminophen (Tylenol -) 650 mg PO Q6H PRN PRN Reason: PAIN LEVEL 1-5 Last Admin: 09/14/18 10:40 Dose: 650 mg Amlodipine Besylate (Norvasc -) 5 mg PO DAILY [facility] Last Admin: 09/14/18 10:34 Dose: 5 mg Azathioprine (Imuran -) 150 mg PO DAILY [facility] Cinacalcet (Sensipar -) 30 mg PO DAILY [facility] Clopidogrel Bisulfate (Plavix -) 75 mg PO DAILY [facility] Last Admin: 09/14/18 10:34 Dose: 75 mg Heparin Sodium (Porcine) (Heparin -) 5,000 unit SQ BID [facility] Last Admin: 09/14/18 10:35 Dose: 5,000 unit Insulin Aspart (Novolog Vial Sliding Scale -) 1 vial SQ [facility]; Protocol Last Admin: 09/14/18 06:43 Dose: 2 units Isosorbide Mononitrate (Ismo -) 20 mg PO TIDISORDIL [facility] Last Admin: 09/14/18 10:34 Dose: 20 mg Metformin HCl (Glucophage Xr -) 750 mg PO AM [facility] Nebivolol (Bystolic -) 20 mg PO DAILY [facility] Non-Formulary Medication (Tacrolimus [Astagraf Xl]) 7 mg PO BID [facility] Sitagliptin Phosphate (Januvia -) 100 mg PO DAILY@0700 [facility] Sodium Bicarbonate (Sodium Bicarbonate -) 650 mg PO BID [facility] Last Admin: 09/14/18 10:34 Dose: 650 mg Tamsulosin HCl (Flomax -) 0.4 mg PO DAILY@0830 [facility] Last Admin: 09/14/18 10:35 Dose: 0.4 mg Tramadol HCl (Ultram -) 50 mg PO Q6H PRN PRN Reason: PAIN LEVEL 6-10 Last Admin: 09/14/18 06:42 Dose: 50 mg - Objective Vital Signs: Vital Signs Temperature 98.2 F 09/14/18 09:14 Pulse Rate 69 09/14/18 09:14 Respiratory Rate 18 09/14/18 09:14 Blood Pressure 163/62 09/14/18 09:14 O2 Sat by Pulse Oximetry (%) 99 09/13/18 13:41 Constitutional: Yes: No Distress, Calm Eyes: Yes: Conjunctiva Clear HENT: Yes: Atraumatic Cardiovascular: Yes: Regular Rate and Rhythm Respiratory: Yes: Regular, CTA Bilaterally Gastrointestinal: Yes: Normal Bowel Sounds, Soft Genitourinary: Yes: Incontinence Musculoskeletal: Yes: Muscle Weakness Extremities: Yes: WNL Edema: No Neurological: Yes: Alert, Oriented Psychiatric: Yes: Alert, Oriented Labs: CBC, BMP 09/14/18 06:00 09/14/18 06:00 INR, PTT INR 0.96 (0.83-1.09) 09/13/18 10:40 - ....Imaging X-ray: Report Reviewed Problem List - Problems (1) Fall from standing Assessment/Plan: -PT -fall precautions -Head CT shows no acute intracranial hemorrhage, edema, midline shift, mass effect, or skull fracture, no CT evidence of acute territorial infarction, atrophic left ocular globe, hyperdense secretion intrasinus calcification in the left maxillary sinus -Hand xray shows no fracture or acute pathology, old ununited fracture of the right ulnar styloid process -Cervical CT shows no evidence of acute fracture, compression deformities, subluxation, prevertebral soft tissue swelling UC pending Code(s): W19.XXXA - UNSPECIFIED FALL, INITIAL ENCOUNTER Qualifiers: Encounter type: initial encounter Qualified Code(s): W19.XXXA - Unspecified fall, initial encounter (2) Intractable pain Assessment/Plan: -pain control -Hand xray shows no fracture or acute pathology, old ununited fracture of the right ulnar styloid process -will order Hand MRI Code(s): R52 - PAIN, UNSPECIFIED (3) CKD (chronic kidney disease) Assessment/Plan: -renal consult -BUN/Cr 31.5/1.2 -s/p renal transplant -renal/diabetic diet Code(s): N18.9 - CHRONIC KIDNEY DISEASE, UNSPECIFIED (4) Diabetes mellitus Assessment/Plan: -BGM ACHS -ISS -HgA1c 10.6% -Endo consult -diabetic diet Code(s): E11.9 - TYPE 2 DIABETES MELLITUS WITHOUT COMPLICATIONS (5) Renal transplant recipient Assessment/Plan: -Renal on board -BUN/Cr 31.5/1.2 -Imuran, Tacrolimus Code(s): Z94.0 - KIDNEY TRANSPLANT STATUS (6) Hyperlipidemia Assessment/Plan: -lipid reviewed Code(s): E78.5 - HYPERLIPIDEMIA, UNSPECIFIED Qualifiers: Hyperlipidemia type: pure hypercholesterolemia Qualified Code(s): E78.00 - Pure hypercholesterolemia, unspecified; E78.0 - Pure hypercholesterolemia (7) Hypertension Assessment/Plan: -Amlodipine, Bystolic -low Na diet Code(s): I10 - ESSENTIAL (PRIMARY) HYPERTENSION Qualifiers: Hypertension type: essential hypertension Qualified Code(s): I10 - Essential (primary) hypertension Assessment/Plan see problem list dvt ppx
[2018-09-14 11:22] LABS: EPI CELLS 5.9 /HPF (0-5/HPF); HYALINE CASTS 62 /lpf (0-8); URINE APPEARANCE CLEAR; URINE BACTERIA 1.5 /hpf (NEGATIVE); URINE BILIRUBIN NEGATIVE (NEGATIVE); URINE COLOR YELLOW; URINE GLUCOSE (UA) 3+ (NEGATIVE); URINE KETONE 1+ (NEGATIVE); URINE LEUK ESTERASE NEGATIVE (NEGATIVE); URINE NITRITE NEGATIVE (NEGATIVE); URINE PROTEIN 1+ (NEGATIVE); URINE RBC 2 /hpf (0-4); URINE UROBILINOGEN 0.2 mg/dL (0.2-1.0)
[2018-09-14] MEDS: azaTHIOprine 50 MG TABLET PO SCH (11:45)
[2018-09-14] MEDS: CINACALCET HCL 30 MG TAB (FP) PO SCH (11:45)
[2018-09-14] MEDS: NEBIVOLOL 10 MG TABLET (FP) PO SCH (11:46)
--- NOTE | 2018-09-14 12:20 | CONSULT ---
Consult - text type - Consultation Consultation Note: Renal Consult for Renal transplant This is a 68 year old gentleman with history of Renal transplant, CAD, IDDM, CVA who presented from home s/p fall. Pt seen and examined at the bedside. Offers no acute complaints. Denies any sob, cp, abd apin, fever, chills , N/V/D. Making urine. Denies any abd pain or pain over transplant site. PMhx: as above Allergies: NDKA Family hx: NC Social hx: No T/A/D ROS: as per HPI Home Medications Medication Instructions Recorded Tacrolimus [Astagraf Xl] 7 mg PO BID 04/24/15 Azathioprine [Imuran] 150 mg PO DAILY 07/08/17 Isosorbide Mononitrate [Isosorbide 20 mg PO Q8H 07/08/17 Mononitrate ER] Prednisone 5 mg PO DAILY 07/08/17 Amlodipine Besylate [Norvasc -] 5 mg PO DAILY 06/04/18 Finasteride 5 mg PO DAILY 06/04/18 Gabapentin 100 mg PO BID 06/04/18 Magnesium Oxide [Mag-Ox -] 400 mg PO BID tablet 06/09/18 Metoprolol Tartrate [Lopressor -] 25 mg PO BID tablet 06/09/18 Ranitidine [Zantac -] 150 mg PO HS tablet 06/09/18 Cefuroxime Axetil [Ceftin -] 500 mg PO BID #5 tablet 07/01/18 Cinacalcet HCl [Sensipar -] 30 mg PO DAILY 09/13/18 Clopidogrel Bisulfate [Plavix] 75 mg PO 09/13/18 Nebivolol HCl [Bystolic] 20 mg PO 09/13/18 Sitagliptin Phosphate [Januvia] 100 mg PO 09/13/18 Sodium Bicarbonate - 650 mg BID 09/13/18 Tamsulosin HCl 0.4 mg PO 09/13/18 metFORMIN XR [Glucophage *Xr* -] 750 mg PO DAILY 09/13/18 Vital Signs Temperature 98.2 F 09/14/18 09:14 Pulse Rate 69 09/14/18 09:14 Respiratory Rate 18 09/14/18 09:14 Blood Pressure 163/62 09/14/18 09:14 O2 Sat by Pulse Oximetry (%) 99 09/13/18 13:41 CBC, BMP 09/14/18 06:00 09/14/18 06:00 Laboratory Tests 09/14/18 09/14/18 09/14/18 05:35 06:00 06:00 Hemoglobin A1c % 10.6 H Calcium 9.7 Phosphorus 3.1 Albumin 3.6 Urine Protein 1+ H Urine Glucose (UA) 3+ H Urine Ketones 1+ H Current Medications Acetaminophen (Tylenol -) 650 mg PO Q6H PRN PRN Reason: PAIN LEVEL 1-5 Last Admin: 09/14/18 10:40 Dose: 650 mg Amlodipine Besylate (Norvasc -) 5 mg PO DAILY [facility] Last Admin: 09/14/18 10:34 Dose: 5 mg Azathioprine (Imuran -) 150 mg PO DAILY [facility] Last Admin: 09/14/18 11:45 Dose: 150 mg Cinacalcet (Sensipar -) 30 mg PO DAILY [facility] Last Admin: 09/14/18 11:45 Dose: 30 mg Clopidogrel Bisulfate (Plavix -) 75 mg PO DAILY [facility] Last Admin: 09/14/18 10:34 Dose: 75 mg Heparin Sodium (Porcine) (Heparin -) 5,000 unit SQ BID [facility] Last Admin: 09/14/18 10:35 Dose: 5,000 unit Insulin Aspart (Novolog Vial Sliding Scale -) 1 vial SQ [facility]; Protocol Last Admin: 09/14/18 11:44 Dose: Not Given Isosorbide Mononitrate (Ismo -) 20 mg PO TIDISORDIL [facility] Last Admin: 09/14/18 10:34 Dose: 20 mg Metformin HCl (Glucophage Xr -) 750 mg PO AM [facility] Nebivolol (Bystolic -) 20 mg PO DAILY [facility] Last Admin: 09/14/18 11:46 Dose: 20 mg Non-Formulary Medication (Tacrolimus [Astagraf Xl]) 7 mg PO BID [facility] Sitagliptin Phosphate (Januvia -) 100 mg PO DAILY@0700 [facility] Sodium Bicarbonate (Sodium Bicarbonate -) 650 mg PO BID [facility] Last Admin: 09/14/18 10:34 Dose: 650 mg Tamsulosin HCl (Flomax -) 0.4 mg PO DAILY@0830 [facility] Last Admin: 09/14/18 10:35 Dose: 0.4 mg Tramadol HCl (Ultram -) 50 mg PO Q6H PRN PRN Reason: PAIN LEVEL 6-10 Last Admin: 09/14/18 06:42 Dose: 50 mg 68 year old gentleman with history of Renal transplant, CAD, IDDM, CVA who presented from home s/p fall. #Renal Transplant with preserved renal function #Fall at home #IDDM #Hypertension #CAD Renal function stable at this time Continue Imuran, tacrolimus and prednisone Tacrolimus dose now 7mg?, will confirm with pharmacy continue work up of fall as per primary check tacrolimus level in am continue sodium bicarb continue amlodipine continue sensipar, check PTH, Ca levls Thank you Price Carlton DO
[2018-09-14] MEDS ORDERED: TACROLIMUS ANHYDROUS 1 MG CAPSULE PO SCH (12:45)
[2018-09-14] MEDS ORDERED: TACROLIMUS ANHYDROUS PO SCH (13:00)
[2018-09-14 13:04] LABS: URINE WBC 62.1 /hpf (0-5); YEAST PRESENT (NEGATIVE)
[2018-09-14] MEDS: predniSONE 5 MG TABLET (UD) PO SCH (13:12)
--- NOTE | 2018-09-14 13:58 | EKG ---
Test Reason : Blood Pressure : / mmHG Vent. Rate : 066 BPM Atrial Rate : 066 BPM P-R Int : 148 ms QRS Dur : 090 ms QT Int : 394 ms P-R-T Axes : 046 -14 040 degrees QTc Int : 413 ms NORMAL SINUS RHYTHM NORMAL ECG WHEN COMPARED WITH ECG OF 29-JUN-2018 14:46, NO SIGNIFICANT CHANGE WAS FOUND Confirmed by STACI BOWEN MD ([id number]) on 09/14/2018 1:58:05 PM Referred By: Confirmed By:STACI BOWEN MD
[2018-09-14] MEDS: ASTAGRAF 1 MG PO SCH (15:53)
--- NOTE | 2018-09-14 20:25 | CONSULT ---
Consult Consult Specialty:: endocrine Referred by:: hilaria rivas Reason for Consultation:: diabetes mellitus mandi 2 - History of Present Illness Chief Complaint: fell at home History of Present Illness: 68 year old gentleman with history of DMT2, Renal transplant, CAD, CVA who presented from home s/p fall. has had long standing history dm,takes pills and insulin at home. he remembers opening the door for somone and falling out , unrelated to his diabetes,denies low sugars,polyuria or polydipsia.he is visually impaired and has pain in upper and lower extremities.Denies any sob, cp , abd apin, fever, chills, N/V/D. - Past Medical History Cardio/Vascular: Yes: HTN Renal/: Yes: Renal Failure, Other (Renal transplant) Endocrine: Yes: Diabetes Mellitus - Past Surgical History Past Surgical History: Yes: AV Fistula/Graft (Left), Kidney Transplant, Stent - Alcohol/Substance Use Hx Alcohol Use: No - Smoking History Smoking history: Never smoked Have you smoked in the past 12 months: No - Social History ADL: Support Services History of Recent Travel: No Home Medications - Allergies Allergies/Adverse Reactions: Allergies Allergy/AdvReac Type Severity Reaction Status Date / Time No Known Allergies Allergy Verified 09/13/18 10:19 - Home Medications Home Medications: Ambulatory Orders Tacrolimus [Astagraf Xl] 7 mg PO BID 04/24/15 Azathioprine [Imuran] 150 mg PO DAILY 07/08/17 Isosorbide Mononitrate [Isosorbide Mononitrate ER] 20 mg PO Q8H 07/08/17 Prednisone 5 mg PO DAILY 07/08/17 Amlodipine Besylate [Norvasc -] 5 mg PO DAILY 06/04/18 Finasteride 5 mg PO DAILY 06/04/18 Gabapentin 100 mg PO BID 06/04/18 Magnesium Oxide [Mag-Ox -] 400 mg PO BID tablet 06/09/18 Metoprolol Tartrate [Lopressor -] 25 mg PO BID tablet 06/09/18 Ranitidine [Zantac -] 150 mg PO HS tablet 06/09/18 Cefuroxime Axetil [Ceftin -] 500 mg PO BID #5 tablet 07/01/18 Cinacalcet HCl [Sensipar -] 30 mg PO DAILY 09/13/18 Clopidogrel Bisulfate [Plavix] 75 mg PO 09/13/18 Nebivolol HCl [Bystolic] 20 mg PO 09/13/18 Sitagliptin Phosphate [Januvia] 100 mg PO 09/13/18 Sodium Bicarbonate - 650 mg BID 09/13/18 Tamsulosin HCl 0.4 mg PO 09/13/18 metFORMIN XR [Glucophage *Xr* -] 750 mg PO DAILY 09/13/18 Review of Systems - Review of Systems Constitutional: reports: Lethargy, Weakness Eyes: reports: Blurred Vision HENT: reports: No Symptoms Neck: reports: No Symptoms Cardiovascular: reports: Shortness of Breath Respiratory: reports: Exercise Intolerance, SOB on Exertion Gastrointestinal: reports: Bloating Genitourinary: reports: No Symptoms Musculoskeletal: reports: Extremity Pain, Joint Swelling, Muscle Pain, Muscle Cramps, Muscle Weakness Integumentary: reports: No Symptoms Neurological: reports: Numbness, Unsteady Gait, Weakness Physical Exam Vital Signs: Vital Signs Temperature 98.7 F 09/14/18 18:47 Pulse Rate 68 09/14/18 18:47 Respiratory Rate 18 09/14/18 18:47 Blood Pressure 133/48 L 09/14/18 18:47 O2 Sat by Pulse Oximetry (%) 100 09/14/18 09:00 Constitutional: Yes: Anxious Eyes: Yes: EOM Intact HENT: Yes: Normocephalic Neck: Yes: Trachea Midline Cardiovascular: Yes: Regular Rate and Rhythm Respiratory: Yes: CTA Bilaterally Gastrointestinal: Yes: Normal Bowel Sounds ...Rectal Exam: Yes: Deferred Renal/: Yes: WNL Musculoskeletal: Yes: Joint Stiffness, Joint Swelling, Muscle Pain, Muscle Weakness Extremities: Yes: Cold, Delayed Capillary Refill, Pallor Edema: LLE: Trace, RLE: 1+ Neurological: Yes: Alert, Oriented, Numbness, Tingling, Weakness Labs: CBC, BMP 09/14/18 06:00 09/14/18 06:00 Problem List - Problems (1) Fall from standing Code(s): W19.XXXA - UNSPECIFIED FALL, INITIAL ENCOUNTER Qualifiers: Encounter type: initial encounter Qualified Code(s): W19.XXXA - Unspecified fall, initial encounter (2) Back pain with left-sided radiculopathy Code(s): M54.10 - RADICULOPATHY, SITE UNSPECIFIED (3) CKD (chronic kidney disease) Code(s): N18.9 - CHRONIC KIDNEY DISEASE, UNSPECIFIED (4) Chest pain Code(s): R07.9 - CHEST PAIN, UNSPECIFIED Qualifiers: Chest pain type: unspecified Qualified Code(s): R07.9 - Chest pain, unspecified (5) Diabetes mellitus Assessment/Plan: Abnormal Lab Results 09/14/18 09/14/18 09/14/18 05:35 06:00 06:00 RDW 19.3 H Monocytes % 12.2 H BUN 31.5 H Random Glucose 191 H Hemoglobin A1c % Magnesium 1.2 L AST 11 L HDL Cholesterol 39 L Urine Protein 1+ H Urine Glucose (UA) 3+ H Urine Ketones 1+ H 09/14/18 06:00 RDW Monocytes % BUN Random Glucose Hemoglobin A1c % 10.6 H Magnesium AST HDL Cholesterol Urine Protein Urine Glucose (UA) Urine Ketones Laboratory Results - last 24 hr 09/13/18 09/13/18 09/14/18 21:54 22:06 05:35 WBC RBC Hgb Hct MCV MCH MCHC RDW Plt Count MPV Absolute Neuts (auto) Neutrophils % Lymphocytes % Monocytes % Eosinophils % Basophils % Nucleated RBC % Sodium Potassium Chloride Carbon Dioxide Anion Gap BUN Creatinine Est GFR (CKD-EPI)AfAm Est GFR (CKD-EPI)NonAf POC Glucometer 222 291 Random Glucose Hemoglobin A1c % Calcium Phosphorus Magnesium Total Bilirubin AST ALT Alkaline Phosphatase Total Protein Albumin Triglycerides Cholesterol Total LDL Cholesterol HDL Cholesterol TSH Urine Color Yellow Urine Appearance Clear Urine pH 6.0 Ur Specific [place] 1.025 Urine Protein 1+ H Urine Glucose (UA) 3+ H Urine Ketones 1+ H Urine Blood Negative Urine Nitrite Negative Urine Bilirubin Negative Urine Urobilinogen 0.2 Ur Leukocyte Esterase Negative Urine WBC (Auto) 62.1 Urine RBC (Auto) 2 Urine Casts (Auto) 62 U Pathogenic Cast Auto None seen U Epithel Cells (Auto) 5.9 U Sm Round Cell (Auto) None seen Urine Bacteria (Auto) 1.5 Urine Yeast (Auto) Present 09/14/18 09/14/18 09/14/18 05:56 06:00 06:00 WBC 4.3 RBC 4.37 Hgb 11.7 Hct 35.8 MCV 81.9 MCH 26.8 MCHC 32.7 RDW 19.3 H Plt Count 262 MPV 7.7 Absolute Neuts (auto) 2.7 Neutrophils % 62.1 Lymphocytes % 25.1 Monocytes % 12.2 H Eosinophils % 0.4 Basophils % 0.2 Nucleated RBC % 0 Sodium 141 Potassium 4.3 Chloride 102 Carbon Dioxide 24 Anion Gap 14 BUN 31.5 H Creatinine 1.2 Est GFR (CKD-EPI)AfAm 71.58 Est GFR (CKD-EPI)NonAf 61.76 POC Glucometer 206 Random Glucose 191 H Hemoglobin A1c % Calcium 9.7 Phosphorus 3.1 Magnesium 1.2 L Total Bilirubin 0.9 AST 11 L ALT 15 Alkaline Phosphatase 80 Total Protein 7.1 Albumin 3.6 Triglycerides 125 Cholesterol 133 Total LDL Cholesterol 78 HDL Cholesterol 39 L TSH 2.05 Urine Color Urine Appearance Urine pH Ur Specific [place] Urine Protein Urine Glucose (UA) Urine Ketones Urine Blood Urine Nitrite Urine Bilirubin Urine Urobilinogen Ur Leukocyte Esterase Urine WBC (Auto) Urine RBC (Auto) Urine Casts (Auto) U Pathogenic Cast Auto U Epithel Cells (Auto) U Sm Round Cell (Auto) Urine Bacteria (Auto) Urine Yeast (Auto) 09/14/18 09/14/18 09/14/18 06:00 11:43 16:31 WBC RBC Hgb Hct MCV MCH MCHC RDW Plt Count MPV Absolute Neuts (auto) Neutrophils % Lymphocytes % Monocytes % Eosinophils % Basophils % Nucleated RBC % Sodium Potassium Chloride Carbon Dioxide Anion Gap BUN Creatinine Est GFR (CKD-EPI)AfAm Est GFR (CKD-EPI)NonAf POC Glucometer 179 309 Random Glucose Hemoglobin A1c % 10.6 H Calcium Phosphorus Magnesium Total Bilirubin AST ALT Alkaline Phosphatase Total Protein Albumin Triglycerides Cholesterol Total LDL Cholesterol HDL Cholesterol TSH Urine Color Urine Appearance Urine pH Ur Specific [place] Urine Protein Urine Glucose (UA) Urine Ketones Urine Blood Urine Nitrite Urine Bilirubin Urine Urobilinogen Ur Leukocyte Esterase Urine WBC (Auto) Urine RBC (Auto) Urine Casts (Auto) U Pathogenic Cast Auto U Epithel Cells (Auto) U Sm Round Cell (Auto) Urine Bacteria (Auto) Urine Yeast (Auto) plan: bgm qid novolog scale levemir 20units am Code(s): E11.9 - TYPE 2 DIABETES MELLITUS WITHOUT COMPLICATIONS (6) Diabetic foot ulcer Code(s): E11.621 - TYPE 2 DIABETES MELLITUS WITH FOOT ULCER; L97.509 - NON- PRESSURE CHRONIC ULCER OTH PRT UNSP FOOT W UNSP SEVERITY Qualifiers: Diabetic foot ulcer location: midfoot Diabetes mellitus type: type 2 Laterality: right Non-pressure ulcer stage: unspecified non-pressure ulcer stage Qualified Code(s): E11.621 - Type 2 diabetes mellitus with foot ulcer; L97.419 - Non-pressure chronic ulcer of right heel and midfoot with unspecified severity Assessment/Plan Current Active Problems dm type 2 neuropathy htn kidney transplant hyperlipidemia Fall from standing (Acute) Intractable pain (Acute) Abnormal Lab Results 09/14/18 09/14/18 09/14/18 05:35 06:00 06:00 RDW 19.3 H Monocytes % 12.2 H BUN 31.5 H Random Glucose 191 H Hemoglobin A1c % Magnesium 1.2 L AST 11 L HDL Cholesterol 39 L Urine Protein 1+ H Urine Glucose (UA) 3+ H Urine Ketones 1+ H 09/14/18 06:00 RDW Monocytes % BUN Random Glucose Hemoglobin A1c % 10.6 H Magnesium AST HDL Cholesterol Urine Protein Urine Glucose (UA) Urine Ketones plan; metforminxr 750mg januvia 100mg daily diet nutrition
[2018-09-15] MEDS ORDERED: PT OWN MED DRAWER 7, Y5N ONE (04:43)
[2018-09-15] MEDS: INSULIN SLIDING SCALE (NOVOLOG) 1 VIAL SQ SCH ×4 (06:12→22:27)
[2018-09-15] MEDS: INSULIN (LEVEMIR) 100 UNITS/ML UNITS SQ SCH (06:13)
[2018-09-15 07:02] LABS: HEMOGLOBIN 11.8 GM/dL (11.7-16.9); MCH 26.8 pg (25.7-33.7); MCHC 32.8 g/dl (32.0-35.9); MEAN CELL VOLUME 81.7 fl (80-96); MEAN PLT VOLUME 7.6 fl (7.5-11.1); PLATELET COUNT 256 K/MM3 (134-434); RBC 4.41 M/mm3 (4.00-5.60); RDW 19.4 % (11.9-15.9); WHITE BLOOD COUNT 5.1 K/mm3 (4.0-10.0)
[2018-09-15 07:22] LABS: ALBUMIN 3.4 g/dl (3.4-5.0); BILIRUBIN,TOTAL 0.7 mg/dL (0.2-1); BLOOD UREA NITROGEN 32.9 mg/dL (7-18); CALCIUM 9.8 mg/dL (8.5-10.1); CREATININE 1.2 mg/dL (0.55-1.3); POTASSIUM 4.4 mmol/L (3.5-5.1); TOT PROT 6.8 g/dl (6.4-8.2)
[2018-09-15] MEDS: ISOSORBIDE MONONITRATE 20 MG TABLET PO SCH ×3 (08:54→17:34)
[2018-09-15] MEDS: TAMSULOSIN HCL 0.4 MG CAP PO SCH (08:55)
[2018-09-15] MEDS: azaTHIOprine 50 MG TABLET PO SCH (10:10)
[2018-09-15] MEDS: CLOPIDOGREL BISULFATE 75 MG TABLET (FP) PO SCH (10:10)
[2018-09-15] MEDS: predniSONE 5 MG TABLET (UD) PO SCH (10:11)
[2018-09-15] MEDS: HEPARIN NA (PORCINE) 5,000 UNITS/ML 1ML VIAL SQ SCH ×2 (10:11→22:26)
[2018-09-15] MEDS: SODIUM BICARBONATE 650 MG TABLET PO SCH ×2 (10:11→22:26)
[2018-09-15] MEDS: ASTAGRAF 1 MG PO SCH (10:12)
[2018-09-15] MEDS: amLODIPine BESYLATE 5 MG TABLET (FP) PO SCH (10:12)
[2018-09-15] MEDS: NEBIVOLOL 10 MG TABLET (FP) PO SCH (10:13)
[2018-09-15] MEDS: CINACALCET HCL 30 MG TAB (FP) PO SCH (10:14)
--- NOTE | 2018-09-15 12:11 | PN ---
Progress Note, Physician Chief Complaint: patient seen and examined complaining of hand pain unable to get MRI - Current Medication List Current Medications: Active Medications Acetaminophen (Tylenol -) 650 mg PO Q6H PRN PRN Reason: PAIN LEVEL 1-5 Last Admin: 09/14/18 22:53 Dose: 650 mg Amlodipine Besylate (Norvasc -) 5 mg PO DAILY [facility] Last Admin: 09/15/18 10:12 Dose: 5 mg Azathioprine (Imuran -) 150 mg PO DAILY [facility] Last Admin: 09/15/18 10:10 Dose: 150 mg Cinacalcet (Sensipar -) 30 mg PO DAILY [facility] Last Admin: 09/15/18 10:14 Dose: 30 mg Clopidogrel Bisulfate (Plavix -) 75 mg PO DAILY [facility] Last Admin: 09/15/18 10:10 Dose: 75 mg Heparin Sodium (Porcine) (Heparin -) 5,000 unit SQ BID [facility] Last Admin: 09/15/18 10:11 Dose: 5,000 unit Insulin Aspart (Novolog Vial Sliding Scale -) 1 vial SQ [facility]; Protocol Last Admin: 09/15/18 11:16 Dose: Not Given Insulin Detemir (Levemir Vial) 20 units SQ AM [facility] Last Admin: 09/15/18 06:13 Dose: 20 units Isosorbide Mononitrate (Ismo -) 20 mg PO TIDISORDIL [facility] Last Admin: 09/15/18 08:54 Dose: 20 mg Metformin HCl (Glucophage Xr -) 750 mg PO AM [facility] Last Admin: 09/15/18 08:54 Dose: 750 mg Nebivolol (Bystolic -) 20 mg PO DAILY [facility] Last Admin: 09/15/18 10:13 Dose: 20 mg Astagraf Xl 1mg (Capsule(Pts Own Med)) 7 each PO DAILY [facility] Last Admin: 09/15/18 10:12 Dose: 7 each Prednisone (Deltasone -) 5 mg PO DAILY [facility] Last Admin: 09/15/18 10:11 Dose: 5 mg Sitagliptin Phosphate (Januvia -) 100 mg PO DAILY@0700 [facility] Last Admin: 09/15/18 08:55 Dose: 100 mg Sodium Bicarbonate (Sodium Bicarbonate -) 650 mg PO BID [facility] Last Admin: 09/15/18 10:11 Dose: 650 mg Tamsulosin HCl (Flomax -) 0.4 mg PO DAILY@0830 [facility] Last Admin: 09/15/18 08:55 Dose: 0.4 mg Tramadol HCl (Ultram -) 50 mg PO Q6H PRN PRN Reason: PAIN LEVEL 6-10 Last Admin: 09/14/18 06:42 Dose: 50 mg - Objective Vital Signs: Vital Signs Temperature 99.2 F 09/15/18 06:00 Pulse Rate 71 09/15/18 06:00 Respiratory Rate 20 09/15/18 06:00 Blood Pressure 141/64 09/15/18 06:00 O2 Sat by Pulse Oximetry (%) 100 09/14/18 21:00 Constitutional: Yes: Calm, Thin Cardiovascular: Yes: Regular Rate and Rhythm, S1, S2 Respiratory: Yes: CTA Bilaterally Gastrointestinal: Yes: Normal Bowel Sounds, Soft Extremities: Yes: Other (hand tennderness swelling of the metacarpophalangeal joints decreased range of motion) Labs: CBC, BMP 09/15/18 05:45 09/15/18 05:45 INR, PTT INR 0.96 (0.83-1.09) 09/13/18 10:40 Problem List - Problems (1) Intractable pain Assessment/Plan: hand ray no fracture r/o connective tissue disease check uric acid ,RF, trevor,esr,crp, rheum consult may need to increase steroid dose Code(s): R52 - PAIN, UNSPECIFIED (2) Diabetes mellitus Assessment/Plan: insulin metformin Code(s): E11.9 - TYPE 2 DIABETES MELLITUS WITHOUT COMPLICATIONS Qualifiers: Diabetes mellitus type: type 2 (3) Renal transplant recipient Assessment/Plan: tacrolimus level in AM tacrolimus sensipar sodium bicarbonate Code(s): Z94.0 - KIDNEY TRANSPLANT STATUS
--- NOTE | 2018-09-15 12:53 | PN ---
Progress Note (short form) - Note Progress Note: Renal follow up for renal transplant Pt seen and examined at the bedside no acute complaints tolerating oral diet no dizziness, cp, sob making urine Vital Signs Temperature 99.2 F 09/15/18 06:00 Pulse Rate 71 09/15/18 06:00 Respiratory Rate 20 09/15/18 09:00 Blood Pressure 141/64 09/15/18 06:00 O2 Sat by Pulse Oximetry (%) 99 09/15/18 09:00 Intake & Output 09/12/18 09/13/18 09/14/18 09/15/18 23:59 23:59 23:59 23:59 Intake Total 250 0 Output Total 600 Balance -350 0 Weight 61.099 kg 61.326 kg 56.416 kg NAD awake and alert neck supple no JVD RRR no LE edema CBC, BMP 09/15/18 05:45 09/15/18 05:45 Current Medications Acetaminophen (Tylenol -) 650 mg PO Q6H PRN PRN Reason: PAIN LEVEL 1-5 Last Admin: 09/14/18 22:53 Dose: 650 mg Amlodipine Besylate (Norvasc -) 5 mg PO DAILY [facility] Last Admin: 09/15/18 10:12 Dose: 5 mg Azathioprine (Imuran -) 150 mg PO DAILY [facility] Last Admin: 09/15/18 10:10 Dose: 150 mg Cinacalcet (Sensipar -) 30 mg PO DAILY [facility] Last Admin: 09/15/18 10:14 Dose: 30 mg Clopidogrel Bisulfate (Plavix -) 75 mg PO DAILY [facility] Last Admin: 09/15/18 10:10 Dose: 75 mg Heparin Sodium (Porcine) (Heparin -) 5,000 unit SQ BID [facility] Last Admin: 09/15/18 10:11 Dose: 5,000 unit Insulin Aspart (Novolog Vial Sliding Scale -) 1 vial SQ [facility]; Protocol Last Admin: 09/15/18 11:16 Dose: Not Given Insulin Detemir (Levemir Vial) 20 units SQ AM [facility] Last Admin: 09/15/18 06:13 Dose: 20 units Isosorbide Mononitrate (Ismo -) 20 mg PO TIDISORDIL [facility] Last Admin: 09/15/18 08:54 Dose: 20 mg Metformin HCl (Glucophage Xr -) 750 mg PO AM [facility] Last Admin: 09/15/18 08:54 Dose: 750 mg Nebivolol (Bystolic -) 20 mg PO DAILY [facility] Last Admin: 09/15/18 10:13 Dose: 20 mg Astagraf Xl 1mg (Capsule(Pts Own Med)) 7 each PO DAILY [facility] Last Admin: 09/15/18 10:12 Dose: 7 each Prednisone (Deltasone -) 5 mg PO DAILY [facility] Last Admin: 09/15/18 10:11 Dose: 5 mg Sitagliptin Phosphate (Januvia -) 100 mg PO DAILY@0700 [facility] Last Admin: 09/15/18 08:55 Dose: 100 mg Sodium Bicarbonate (Sodium Bicarbonate -) 650 mg PO BID [facility] Last Admin: 09/15/18 10:11 Dose: 650 mg Tamsulosin HCl (Flomax -) 0.4 mg PO DAILY@0830 [facility] Last Admin: 09/15/18 08:55 Dose: 0.4 mg Tramadol HCl (Ultram -) 50 mg PO Q6H PRN PRN Reason: PAIN LEVEL 6-10 Last Admin: 09/14/18 06:42 Dose: 50 mg 68 year old gentleman with history of Renal transplant, CAD, IDDM, CVA who presented from home s/p fall. #Renal Transplant with preserved renal function #Fall at home #IDDM #Hypertension #CAD Renal function stable at this time Continue Imuran, tacrolimus and prednisone continue sodium bicarb continue amlodipine for hypertension trend renal function daily will follow up as needed Thank you Price Carlton DO
[2018-09-15 13:06] LABS: URIC ACID 7.8 mg/dL (2.6-7.2)
--- NOTE | 2018-09-15 16:56 | CONSULT ---
Consult Consult Specialty:: Rheumatology - History of Present Illness History of Present Illness: 68 year old male with a significant past medical history of HTN, IDDM, CAD (s/ p stent 06/24), s/p renal transplant, visually impaired and CVA admitted after fall with trauma to chest and hands. Since admission he has indicated he has significnt pain in hands R>L. He denies CP, Dizziness, head trauma and LOC. X rays of the hands were reported as normal. Laboratory work-up CBC normal. creatinine 1.2, ESR 13, CRP 0.5, UA with protein 1+m glucose 3+ and no blood. Rheumatoid factor negative. - History Source History Provided By: Patient, Medical Record - Past Medical History Cardio/Vascular: Yes: HTN Renal/: Yes: Renal Failure, Other (Renal transplant) Endocrine: Yes: Diabetes Mellitus - Past Surgical History Past Surgical History: Yes: AV Fistula/Graft (Left), Kidney Transplant, Stent - Alcohol/Substance Use Hx Alcohol Use: No - Smoking History Smoking history: Never smoked Have you smoked in the past 12 months: No - Social History ADL: Support Services History of Recent Travel: No Home Medications - Allergies Allergies/Adverse Reactions: Allergies Allergy/AdvReac Type Severity Reaction Status Date / Time No Known Allergies Allergy Verified 09/13/18 10:19 - Home Medications Home Medications: Ambulatory Orders Tacrolimus [Astagraf Xl] 7 mg PO BID 04/24/15 Azathioprine [Imuran] 150 mg PO DAILY 07/08/17 Isosorbide Mononitrate [Isosorbide Mononitrate ER] 20 mg PO Q8H 07/08/17 Prednisone 5 mg PO DAILY 07/08/17 Amlodipine Besylate [Norvasc -] 5 mg PO DAILY 06/04/18 Finasteride 5 mg PO DAILY 06/04/18 Gabapentin 100 mg PO BID 06/04/18 Magnesium Oxide [Mag-Ox -] 400 mg PO BID tablet 06/09/18 Metoprolol Tartrate [Lopressor -] 25 mg PO BID tablet 06/09/18 Ranitidine [Zantac -] 150 mg PO HS tablet 06/09/18 Cefuroxime Axetil [Ceftin -] 500 mg PO BID #5 tablet 07/01/18 Cinacalcet HCl [Sensipar -] 30 mg PO DAILY 09/13/18 Clopidogrel Bisulfate [Plavix] 75 mg PO 09/13/18 Nebivolol HCl [Bystolic] 20 mg PO 09/13/18 Sitagliptin Phosphate [Januvia] 100 mg PO 09/13/18 Sodium Bicarbonate - 650 mg BID 09/13/18 Tamsulosin HCl 0.4 mg PO 09/13/18 metFORMIN XR [Glucophage *Xr* -] 750 mg PO DAILY 09/13/18 Review of Systems - Review of Systems Constitutional: reports: Malaise HENT: reports: No Symptoms Neck: reports: No Symptoms Cardiovascular: reports: No Symptoms Respiratory: reports: No Symptoms Gastrointestinal: reports: No Symptoms Physical Exam Vital Signs: Vital Signs Temperature 98.6 F 09/15/18 15:11 Pulse Rate 81 09/15/18 15:11 Respiratory Rate 20 09/15/18 15:11 Blood Pressure 141/57 L 09/15/18 15:11 O2 Sat by Pulse Oximetry (%) 99 09/15/18 09:00 Constitutional: Yes: Mild Distress HENT: Yes: WNL Neck: Yes: WNL Cardiovascular: Yes: WNL Respiratory: Yes: WNL Gastrointestinal: Yes: WNL Musculoskeletal: Yes: Other (No active joints. Hands were not tender and he had no joint tenderness or effusion) Labs: CBC, BMP 09/15/18 05:45 09/15/18 05:45 Problem List - Problems (1) Pain in both hands Assessment/Plan: The patient ahd a fall with apparently trauma to both hands and reported pain in hands during the admission. X rays are normal and at the present time he has no pain or arthritis. No further work-up or management for this problem is required. Code(s): M79.641 - PAIN IN RIGHT HAND; M79.642 - PAIN IN LEFT HAND
[2018-09-16] MEDS ORDERED: PT OWN MED DRAWER 7, Y5N ONE ×4 (06:24→13:49)
[2018-09-16] MEDS: INSULIN SLIDING SCALE (NOVOLOG) 1 VIAL SQ SCH ×5 (07:04→23:48)
[2018-09-16] MEDS: INSULIN (LEVEMIR) 100 UNITS/ML UNITS SQ SCH (07:04)
[2018-09-16 07:45] LABS: ALBUMIN 3.5 g/dl (3.4-5.0); BILIRUBIN,TOTAL 0.9 mg/dL (0.2-1); BLOOD UREA NITROGEN 32.6 mg/dL (7-18); CREATININE 1.4 mg/dL (0.55-1.3); POTASSIUM 4.1 mmol/L (3.5-5.1); TOT PROT 6.9 g/dl (6.4-8.2)
[2018-09-16] MEDS: TACROLIMUS 7 MG PO SCH ×2 (07:50→07:51)
[2018-09-16] MEDS: ISOSORBIDE MONONITRATE 20 MG TABLET PO SCH ×4 (07:50→17:06)
[2018-09-16] MEDS: TAMSULOSIN HCL 0.4 MG CAP PO SCH (09:22)
[2018-09-16] MEDS: NEBIVOLOL 10 MG TABLET (FP) PO SCH (09:22)
[2018-09-16] MEDS: HEPARIN NA (PORCINE) 5,000 UNITS/ML 1ML VIAL SQ SCH ×2 (09:23→23:45)
[2018-09-16] MEDS: predniSONE 5 MG TABLET (UD) PO SCH (09:23)
[2018-09-16] MEDS: azaTHIOprine 50 MG TABLET PO SCH (09:23)
[2018-09-16] MEDS: ASTAGRAF 1 MG PO SCH (09:24)
[2018-09-16] MEDS: amLODIPine BESYLATE 5 MG TABLET (FP) PO SCH (09:24)
[2018-09-16] MEDS: CLOPIDOGREL BISULFATE 75 MG TABLET (FP) PO SCH (09:25)
[2018-09-16] MEDS: CINACALCET HCL 30 MG TAB (FP) PO SCH (09:25)
[2018-09-16] MEDS: SODIUM BICARBONATE 650 MG TABLET PO SCH ×2 (09:25→23:45)
--- NOTE | 2018-09-16 16:48 | PN ---
Progress Note, Physician Chief Complaint: S/p Fall B/L Hand Pain Hx of Renal Transplant DM History of Present Illness: Previous notes and events reviewed sleeping but arouseable to verbal and tactile stimuli NAD continue to complain of hand pain but sts getting little better denies chest pain or SOB elevated uric acid and ESR - Current Medication List Current Medications: Active Medications Acetaminophen (Tylenol -) 650 mg PO Q6H PRN PRN Reason: PAIN LEVEL 1-5 Last Admin: 09/14/18 22:53 Dose: 650 mg Amlodipine Besylate (Norvasc -) 5 mg PO DAILY [facility] Last Admin: 09/16/18 09:24 Dose: 5 mg Azathioprine (Imuran -) 150 mg PO DAILY [facility] Last Admin: 09/16/18 09:23 Dose: 150 mg Cinacalcet (Sensipar -) 30 mg PO DAILY [facility] Last Admin: 09/16/18 09:25 Dose: 30 mg Clopidogrel Bisulfate (Plavix -) 75 mg PO DAILY [facility] Last Admin: 09/16/18 09:25 Dose: 75 mg Heparin Sodium (Porcine) (Heparin -) 5,000 unit SQ BID [facility] Last Admin: 09/16/18 09:23 Dose: 5,000 unit Insulin Aspart (Novolog Vial Sliding Scale -) [address] [facility]; Protocol Last Admin: 09/16/18 11:41 Dose: Not Given Insulin Detemir (Levemir Vial) 20 units SQ AM [facility] Last Admin: 09/16/18 07:04 Dose: 20 units Isosorbide Mononitrate (Ismo -) 20 mg PO TIDISORDIL [facility] Last Admin: 09/16/18 13:50 Dose: 20 mg Metformin HCl (Glucophage Xr -) 750 mg PO AM [facility] Last Admin: 09/16/18 07:04 Dose: 750 mg Nebivolol (Bystolic -) 20 mg PO DAILY [facility] Last Admin: 09/16/18 09:22 Dose: 20 mg Astagraf Xl 1mg (Capsule(Pts Own Med)) 7 each PO DAILY [facility] Last Admin: 09/16/18 09:24 Dose: 7 each Prednisone (Deltasone -) 5 mg PO DAILY [facility] Last Admin: 09/16/18 09:23 Dose: 5 mg Sitagliptin Phosphate (Januvia -) 100 mg PO DAILY@0700 [facility] Last Admin: 09/16/18 07:04 Dose: 100 mg Sodium Bicarbonate (Sodium Bicarbonate -) 650 mg PO BID [facility] Last Admin: 09/16/18 09:25 Dose: 650 mg Tamsulosin HCl (Flomax -) 0.4 mg PO DAILY@0830 [facility] Last Admin: 09/16/18 09:22 Dose: 0.4 mg Tramadol HCl (Ultram -) 50 mg PO Q6H PRN PRN Reason: PAIN LEVEL 6-10 Last Admin: 09/14/18 06:42 Dose: 50 mg - Objective Vital Signs: Vital Signs Temperature 98.7 F 09/16/18 14:00 Pulse Rate 65 09/16/18 14:00 Respiratory Rate 18 09/16/18 14:00 Blood Pressure 129/50 L 09/16/18 14:00 O2 Sat by Pulse Oximetry (%) 99 09/16/18 09:00 Constitutional: Yes: No Distress, Calm Eyes: Yes: Conjunctiva Clear HENT: Yes: Atraumatic Cardiovascular: Yes: Regular Rate and Rhythm Respiratory: Yes: Regular, CTA Bilaterally Gastrointestinal: Yes: Normal Bowel Sounds, Soft Genitourinary: Yes: Incontinence Musculoskeletal: Yes: Muscle Weakness Extremities: Yes: WNL Edema: No Neurological: Yes: Alert Psychiatric: Yes: Alert Labs: CBC, BMP 09/15/18 05:45 09/16/18 06:00 INR, PTT INR 0.96 (0.83-1.09) 09/13/18 10:40 Microbiology 09/14/18 05:35 Urine - Urine Clean Catch Urine Culture - Final Normal Urogenital Amy Problem List - Problems (1) Fall from standing Assessment/Plan: -PT -fall precautions -Head CT shows no acute intracranial hemorrhage, edema, midline shift, mass effect, or skull fracture, no CT evidence of acute territorial infarction, atrophic left ocular globe, hyperdense secretion intrasinus calcification in the left maxillary sinus -Hand xray shows no fracture or acute pathology, old ununited fracture of the right ulnar styloid process -Cervical CT shows no evidence of acute fracture, compression deformities, subluxation, prevertebral soft tissue swelling - neg Code(s): W19.XXXA - UNSPECIFIED FALL, INITIAL ENCOUNTER Qualifiers: Encounter type: initial encounter Qualified Code(s): W19.XXXA - Unspecified fall, initial encounter (2) Intractable pain Assessment/Plan: -pain control -Hand xray shows no fracture or acute pathology, old ununited fracture of the right ulnar styloid process -unable to do MRI 2/2 stent placement -Uric Acid 7.8 and CRP 0.5 -Rheumatology on board Code(s): R52 - PAIN, UNSPECIFIED (3) CKD (chronic kidney disease) Assessment/Plan: -renal consult -BUN/Cr 32.6/1.4 -s/p renal transplant -renal/diabetic diet Code(s): N18.9 - CHRONIC KIDNEY DISEASE, UNSPECIFIED (4) Diabetes mellitus Assessment/Plan: -BGM ACHS -ISS -Januvia, Metformin, Levemir -HgA1c 10.6% -Endo consult -diabetic diet Code(s): E11.9 - TYPE 2 DIABETES MELLITUS WITHOUT COMPLICATIONS Qualifiers: Diabetes mellitus type: type 2 (5) Renal transplant recipient Assessment/Plan: -Renal on board -BUN/Cr 32.6/1.4 -Imuran, Tacrolimus -tacrolimus level Code(s): Z94.0 - KIDNEY TRANSPLANT STATUS (6) Hyperlipidemia Assessment/Plan: -lipid reviewed Code(s): E78.5 - HYPERLIPIDEMIA, UNSPECIFIED Qualifiers: Hyperlipidemia type: pure hypercholesterolemia Qualified Code(s): E78.00 - Pure hypercholesterolemia, unspecified; E78.0 - Pure hypercholesterolemia (7) Hypertension Assessment/Plan: -Amlodipine, Bystolic -low Na diet Code(s): I10 - ESSENTIAL (PRIMARY) HYPERTENSION Qualifiers: Hypertension type: essential hypertension Qualified Code(s): I10 - Essential (primary) hypertension Assessment/Plan see problem list dvt ppx
--- NOTE | 2018-09-16 21:46 | PN ---
Progress Note (short form) - Note Progress Note: covering dr reid Renal Transplant with preserved renal function Fall at home IDDM Hypertension CAD Current Medications Acetaminophen (Tylenol -) 650 mg PO Q6H PRN PRN Reason: PAIN LEVEL 1-5 Last Admin: 09/14/18 22:53 Dose: 650 mg Amlodipine Besylate (Norvasc -) 5 mg PO DAILY [facility] Last Admin: 09/16/18 09:24 Dose: 5 mg Azathioprine (Imuran -) 150 mg PO DAILY [facility] Last Admin: 09/16/18 09:23 Dose: 150 mg Cinacalcet (Sensipar -) 30 mg PO DAILY [facility] Last Admin: 09/16/18 09:25 Dose: 30 mg Clopidogrel Bisulfate (Plavix -) 75 mg PO DAILY [facility] Last Admin: 09/16/18 09:25 Dose: 75 mg Heparin Sodium (Porcine) (Heparin -) 5,000 unit SQ BID [facility] Last Admin: 09/16/18 09:23 Dose: 5,000 unit Insulin Aspart (Novolog Vial Sliding Scale -) 1 vial SQ [facility]; Protocol Last Admin: 09/16/18 17:08 Dose: Not Given Insulin Detemir (Levemir Vial) 20 units SQ AM [facility] Last Admin: 09/16/18 07:04 Dose: 20 units Isosorbide Mononitrate (Ismo -) 20 mg PO TIDISORDIL [facility] Last Admin: 09/16/18 17:06 Dose: 20 mg Metformin HCl (Glucophage Xr -) 750 mg PO AM [facility] Last Admin: 09/16/18 07:04 Dose: 750 mg Nebivolol (Bystolic -) 20 mg PO DAILY [facility] Last Admin: 09/16/18 09:22 Dose: 20 mg Astagraf Xl 1mg (Capsule(Pts Own Med)) 7 each PO DAILY [facility] Last Admin: 09/16/18 09:24 Dose: 7 each Prednisone (Deltasone -) 5 mg PO DAILY [facility] Last Admin: 09/16/18 09:23 Dose: 5 mg Sitagliptin Phosphate (Januvia -) 100 mg PO DAILY@0700 [facility] Last Admin: 09/16/18 07:04 Dose: 100 mg Sodium Bicarbonate (Sodium Bicarbonate -) 650 mg PO BID [facility] Last Admin: 09/16/18 09:25 Dose: 650 mg Tamsulosin HCl (Flomax -) 0.4 mg PO DAILY@0830 [facility] Last Admin: 09/16/18 09:22 Dose: 0.4 mg Tramadol HCl (Ultram -) 50 mg PO Q6H PRN PRN Reason: PAIN LEVEL 6-10 Last Admin: 09/14/18 06:42 Dose: 50 mg Last Vital Signs Temp Pulse Resp BP Pulse Ox 98.1 F 62 18 134/52 L 99 09/16/18 17:36 09/16/18 17:36 09/16/18 17:36 09/16/18 17:36 09/16/18 09:00 CBC, BMP 09/15/18 05:45 09/16/18 06:00 rising s creatinine may be 2/2 fluid deficit encourage oral fluids f/u labs in am Renal function stable at this time Continue Imuran, tacrolimus and prednisone continue sodium bicarb continue amlodipine for hypertension trend renal function daily will follow up as needed
[2018-09-17] MEDS ORDERED: PT OWN MED DRAWER 7, Y5N ONE ×2 (05:48→19:55)
[2018-09-17] MEDS: INSULIN (LEVEMIR) 100 UNITS/ML UNITS SQ SCH (06:49)
[2018-09-17] MEDS: INSULIN SLIDING SCALE (NOVOLOG) 1 VIAL SQ SCH ×4 (06:50→23:17)
[2018-09-17 07:52] LABS: HEMATOCRIT 36.1 % (35.4-49); HEMOGLOBIN 11.8 GM/dL (11.7-16.9); MCH 26.7 pg (25.7-33.7); MCHC 32.7 g/dl (32.0-35.9); MEAN CELL VOLUME 81.7 fl (80-96); MEAN PLT VOLUME 7.6 fl (7.5-11.1); PLATELET COUNT 225 K/MM3 (134-434); RBC 4.42 M/mm3 (4.00-5.60); RDW 19.5 % (11.9-15.9)
[2018-09-17 08:19] LABS: ALBUMIN 3.1 g/dl (3.4-5.0); BILIRUBIN,TOTAL 0.8 mg/dL (0.2-1); BLOOD UREA NITROGEN 41.4 mg/dL (7-18); CALCIUM 9.5 mg/dL (8.5-10.1); CREATININE 1.3 mg/dL (0.55-1.3); POTASSIUM 4.5 mmol/L (3.5-5.1); TOT PROT 6.3 g/dl (6.4-8.2)
[2018-09-17] MEDS: traMADol HCL 50 MG TABLET PO PRN (12:15)
[2018-09-17] MEDS: TAMSULOSIN HCL 0.4 MG CAP PO SCH (12:15)
[2018-09-17] MEDS: amLODIPine BESYLATE 5 MG TABLET (FP) PO SCH (12:15)
[2018-09-17] MEDS: CLOPIDOGREL BISULFATE 75 MG TABLET (FP) PO SCH (12:15)
[2018-09-17] MEDS: SODIUM BICARBONATE 650 MG TABLET PO SCH ×2 (12:15→23:17)
[2018-09-17] MEDS: ASTAGRAF 1 MG PO SCH (12:19)
[2018-09-17] MEDS: ISOSORBIDE MONONITRATE 20 MG TABLET PO SCH ×3 (12:20→19:51)
[2018-09-17] MEDS: CINACALCET HCL 30 MG TAB (FP) PO SCH (12:20)
[2018-09-17] MEDS: NEBIVOLOL 10 MG TABLET (FP) PO SCH (12:21)
[2018-09-17] MEDS: azaTHIOprine 50 MG TABLET PO SCH (12:22)
[2018-09-17] MEDS: HEPARIN NA (PORCINE) 5,000 UNITS/ML 1ML VIAL SQ SCH ×2 (12:22→23:17)
[2018-09-17] MEDS: predniSONE 5 MG TABLET (UD) PO SCH (12:22)
--- NOTE | 2018-09-17 15:11 | PN ---
Progress Note, Physician Chief Complaint: S/p Fall B/L Hand Pain Hx of Renal Transplant DM History of Present Illness: Previous notes and events reviewed alert and awake NAD complain of b/l hand pain elev Uric acid level denies chest pain or SOB - Current Medication List Current Medications: Active Medications Acetaminophen (Tylenol -) 650 mg PO Q6H PRN PRN Reason: PAIN LEVEL 1-5 Last Admin: 09/14/18 22:53 Dose: 650 mg Amlodipine Besylate (Norvasc -) 5 mg PO DAILY [facility] Last Admin: 09/17/18 12:15 Dose: 5 mg Azathioprine (Imuran -) 150 mg PO DAILY [facility] Last Admin: 09/17/18 12:22 Dose: 150 mg Cinacalcet (Sensipar -) 30 mg PO DAILY [facility] Last Admin: 09/17/18 12:20 Dose: 30 mg Clopidogrel Bisulfate (Plavix -) 75 mg PO DAILY [facility] Last Admin: 09/17/18 12:15 Dose: 75 mg Heparin Sodium (Porcine) (Heparin -) 5,000 unit SQ BID [facility] Last Admin: 09/17/18 12:22 Dose: 5,000 unit Insulin Aspart (Novolog Vial Sliding Scale -) 1 vial SQ [facility]; Protocol Last Admin: 09/17/18 12:23 Dose: Not Given Insulin Detemir (Levemir Vial) 20 units SQ AM [facility] Last Admin: 09/17/18 06:49 Dose: 20 units Isosorbide Mononitrate (Ismo -) 20 mg PO TIDISORDIL [facility] Last Admin: 09/17/18 12:21 Dose: Not Given Metformin HCl (Glucophage Xr -) 750 mg PO AM [facility] Last Admin: 09/17/18 06:49 Dose: 750 mg Nebivolol (Bystolic -) 20 mg PO DAILY [facility] Last Admin: 09/17/18 12:21 Dose: 20 mg Astagraf Xl 1mg (Capsule(Pts Own Med)) 7 each PO DAILY [facility] Last Admin: 09/17/18 12:19 Dose: 7 each Prednisone (Deltasone -) 5 mg PO DAILY [facility] Last Admin: 09/17/18 12:22 Dose: 5 mg Sitagliptin Phosphate (Januvia -) 100 mg PO DAILY@0700 [facility] Last Admin: 09/17/18 06:49 Dose: 100 mg Sodium Bicarbonate (Sodium Bicarbonate -) 650 mg PO BID [facility] Last Admin: 09/17/18 12:15 Dose: 650 mg Tamsulosin HCl (Flomax -) 0.4 mg PO DAILY@0830 [facility] Last Admin: 09/17/18 12:15 Dose: 0.4 mg Tramadol HCl (Ultram -) 50 mg PO Q6H PRN PRN Reason: PAIN LEVEL 6-10 Last Admin: 09/17/18 12:15 Dose: 50 mg - Objective Vital Signs: Vital Signs Temperature 97.5 F L 09/17/18 06:00 Pulse Rate 65 09/17/18 06:00 Respiratory Rate 18 09/17/18 06:00 Blood Pressure 161/65 09/17/18 06:00 O2 Sat by Pulse Oximetry (%) 100 09/16/18 21:00 Constitutional: Yes: No Distress, Calm Eyes: Yes: Conjunctiva Clear HENT: Yes: Atraumatic Cardiovascular: Yes: Regular Rate and Rhythm Respiratory: Yes: Regular, CTA Bilaterally Gastrointestinal: Yes: Normal Bowel Sounds, Soft Genitourinary: Yes: Incontinence Musculoskeletal: Yes: Muscle Weakness, Other (b/l hand pain) Extremities: Yes: WNL Edema: No Neurological: Yes: Alert, Pre-Existing Deficit Psychiatric: Yes: Alert, Oriented Labs: CBC, BMP 09/17/18 07:12 09/17/18 07:12 INR, PTT INR 0.96 (0.83-1.09) 09/13/18 10:40 Microbiology 09/14/18 05:35 Urine - Urine Clean Catch Urine Culture - Final Normal Urogenital Amy Problem List - Problems (1) Fall from standing Assessment/Plan: -PT -fall precautions -Head CT shows no acute intracranial hemorrhage, edema, midline shift, mass effect, or skull fracture, no CT evidence of acute territorial infarction, atrophic left ocular globe, hyperdense secretion intrasinus calcification in the left maxillary sinus -Hand xray shows no fracture or acute pathology, old ununited fracture of the right ulnar styloid process -Cervical CT shows no evidence of acute fracture, compression deformities, subluxation, prevertebral soft tissue swelling -UC neg -will need SNF on discharge for PT Code(s): W19.XXXA - UNSPECIFIED FALL, INITIAL ENCOUNTER Qualifiers: Encounter type: initial encounter Qualified Code(s): W19.XXXA - Unspecified fall, initial encounter (2) Intractable pain Assessment/Plan: -pain control -Hand xray shows no fracture or acute pathology, old ununited fracture of the right ulnar styloid process -unable to do MRI 2/2 stent placement -Uric Acid 7.8 and CRP 0.5 -trevor neg, Rheumatoid neg -Rheumatology on board -colchicine Code(s): R52 - PAIN, UNSPECIFIED (3) CKD (chronic kidney disease) Assessment/Plan: -renal consult -BUN/Cr 41.1/1.4 -s/p renal transplant -renal/diabetic diet Code(s): N18.9 - CHRONIC KIDNEY DISEASE, UNSPECIFIED (4) Diabetes mellitus Assessment/Plan: -BGM ACHS -ISS -Januvia, Metformin, Levemir -HgA1c 10.6% -Endo consult -diabetic diet Code(s): E11.9 - TYPE 2 DIABETES MELLITUS WITHOUT COMPLICATIONS Qualifiers: Diabetes mellitus type: type 2 (5) Renal transplant recipient Assessment/Plan: -Renal on board -BUN/Cr 41.4/1.4 -Imuran, Tacrolimus -tacrolimus level pendng Code(s): Z94.0 - KIDNEY TRANSPLANT STATUS (6) Hyperlipidemia Assessment/Plan: -lipid reviewed Code(s): E78.5 - HYPERLIPIDEMIA, UNSPECIFIED Qualifiers: Hyperlipidemia type: pure hypercholesterolemia Qualified Code(s): E78.00 - Pure hypercholesterolemia, unspecified; E78.0 - Pure hypercholesterolemia (7) Hypertension Assessment/Plan: -Amlodipine, Bystolic -low Na diet Code(s): I10 - ESSENTIAL (PRIMARY) HYPERTENSION Qualifiers: Hypertension type: essential hypertension Qualified Code(s): I10 - Essential (primary) hypertension Assessment/Plan see problem list dvt ppx will need SNF on discharge for PT
--- NOTE | 2018-09-17 22:42 | PN ---
Progress Note (short form) - Note Progress Note: covering dr reid Renal Transplant with preserved renal function Fall at home IDDM Hypertension CAD Current Medications Acetaminophen (Tylenol -) 650 mg PO Q6H PRN PRN Reason: PAIN LEVEL 1-5 Last Admin: 09/14/18 22:53 Dose: 650 mg Amlodipine Besylate (Norvasc -) 5 mg PO DAILY [facility] Last Admin: 09/17/18 12:15 Dose: 5 mg Azathioprine (Imuran -) 150 mg PO DAILY [facility] Last Admin: 09/17/18 12:22 Dose: 150 mg Cinacalcet (Sensipar -) 30 mg PO DAILY [facility] Last Admin: 09/17/18 12:20 Dose: 30 mg Clopidogrel Bisulfate (Plavix -) 75 mg PO DAILY [facility] Last Admin: 09/17/18 12:15 Dose: 75 mg Colchicine (Colcrys) 0.6 mg PO DAILY [facility] Heparin Sodium (Porcine) (Heparin -) 5,000 unit SQ BID [facility] Last Admin: 09/17/18 12:22 Dose: 5,000 unit Insulin Aspart (Novolog Vial Sliding Scale -) 1 vial SQ [facility]; Protocol Last Admin: 09/17/18 19:32 Dose: Not Given Insulin Detemir (Levemir Vial) 20 units SQ AM [facility] Last Admin: 09/17/18 06:49 Dose: 20 units Isosorbide Mononitrate (Ismo -) 20 mg PO TIDISORDIL [facility] Last Admin: 09/17/18 19:51 Dose: 20 mg Metformin HCl (Glucophage Xr -) 750 mg PO AM [facility] Last Admin: 09/17/18 06:49 Dose: 750 mg Nebivolol (Bystolic -) 20 mg PO DAILY [facility] Last Admin: 09/17/18 12:21 Dose: 20 mg Astagraf Xl 1mg (Capsule(Pts Own Med)) 7 each PO DAILY [facility] Last Admin: 09/17/18 12:19 Dose: 7 each Prednisone (Deltasone -) 5 mg PO DAILY [facility] Last Admin: 09/17/18 12:22 Dose: 5 mg Sitagliptin Phosphate (Januvia -) 100 mg PO DAILY@0700 [facility] Last Admin: 09/17/18 06:49 Dose: 100 mg Sodium Bicarbonate (Sodium Bicarbonate -) 650 mg PO BID [facility] Last Admin: 09/17/18 12:15 Dose: 650 mg Tamsulosin HCl (Flomax -) 0.4 mg PO DAILY@0830 [facility] Last Admin: 09/17/18 12:15 Dose: 0.4 mg Tramadol HCl (Ultram -) 50 mg PO Q6H PRN PRN Reason: PAIN LEVEL 6-10 Last Admin: 09/17/18 12:15 Dose: 50 mg Last Vital Signs Temp Pulse Resp BP Pulse Ox 97.4 F L 71 18 145/64 100 09/17/18 18:00 09/17/18 18:00 09/17/18 18:00 09/17/18 18:00 09/17/18 10:00 alert in nad Lungs clear Heart reg abd soft nontender ext no edema CBC, BMP 09/17/18 07:12 09/17/18 07:12 CBC, BMP 09/15/18 05:45 09/16/18 06:00 renal function improved s/p transient rise in creat continue to encourage oral fluids f/u labs in am Renal function stable at this time Continue Imuran, tacrolimus and prednisone continue sodium bicarb continue amlodipine for hypertension trend renal function daily will follow up as needed
[2018-09-18] MEDS: INSULIN (LEVEMIR) 100 UNITS/ML UNITS SQ SCH (06:50)
[2018-09-18] MEDS: INSULIN SLIDING SCALE (NOVOLOG) 1 VIAL SQ SCH ×4 (06:51→21:11)
[2018-09-18 07:47] LABS: HEMATOCRIT 35.3 % (35.4-49); HEMOGLOBIN 11.6 GM/dL (11.7-16.9); MCH 27.2 pg (25.7-33.7); MCHC 32.8 g/dl (32.0-35.9); MEAN CELL VOLUME 82.7 fl (80-96); MEAN PLT VOLUME 7.8 fl (7.5-11.1); PLATELET COUNT 208 K/MM3 (134-434); RBC 4.26 M/mm3 (4.00-5.60); RDW 19.5 % (11.9-15.9); WHITE BLOOD COUNT 2.9 K/mm3 (4.0-10.0)
[2018-09-18 07:57] LABS: ALBUMIN 3.1 g/dl (3.4-5.0); BILIRUBIN,TOTAL 0.8 mg/dL (0.2-1); BLOOD UREA NITROGEN 44.9 mg/dL (7-18); CREATININE 1.3 mg/dL (0.55-1.3); POTASSIUM 4.5 mmol/L (3.5-5.1); TOT PROT 6.2 g/dl (6.4-8.2)
--- NOTE | 2018-09-18 09:13 | DS ---
Physical Examination Vital Signs: Vital Signs Temperature 98.0 F 09/18/18 06:00 Pulse Rate 66 09/18/18 06:00 Respiratory Rate 18 09/18/18 06:00 Blood Pressure 153/67 09/18/18 06:00 O2 Sat by Pulse Oximetry (%) 100 09/17/18 21:00 Findings/Remarks: awake confused, baseline mental status Constitutional: Yes: Mild Distress Cardiovascular: Yes: Regular Rate and Rhythm Respiratory: Yes: WNL Gastrointestinal: Yes: WNL Musculoskeletal: Yes: Muscle Pain, Muscle Weakness Edema: No Integumentary: Yes: WNL Wound/Incision: Yes: Clean/Dry Neurological: Yes: Pre-Existing Deficit, Weakness ...Motor Strength: LUE RUE Psychiatric: Yes: Other Labs: CBC, BMP 09/18/18 06:30 09/18/18 06:30 Discharge Summary Reason For Visit: INTRACTABLE PAIN FALL Current Active Problems Fall from standing (Acute) Intractable pain (Acute) Pain in both hands (Acute) Procedures: Principal: XRAYS Hospital Course: ADMITTED TREATED FOR EXTREMITY PAIN, WEAKNESS, FALL WILL NEED SNF Condition: Stable - Instructions Diet, Activity, Other Instructions: STOP COLCHICINE AFTER 2 DAYS CHECK CBC.CMP WEEKLY F/U TACROLIMUS LEVEL WILL NEED FOLLOW UP WITH [facility]ANSPLANT DOCTOR NEPHROLOGY AND RHEUMATOLOGY CONSULTS AND F/U OUTPATIENT Disposition: ALF FACILITY - Home Medications Comprehensive Discharge Medication List: Ambulatory Orders Tacrolimus [Astagraf Xl] 7 mg PO BID 04/24/15 Azathioprine [Imuran] 150 mg PO DAILY 07/08/17 Isosorbide Mononitrate [Isosorbide Mononitrate ER] 20 mg PO Q8H 07/08/17 Prednisone 5 mg PO DAILY 07/08/17 Amlodipine Besylate [Norvasc -] 5 mg PO DAILY 06/04/18 Finasteride 5 mg PO DAILY 06/04/18 Gabapentin 100 mg PO BID 06/04/18 Magnesium Oxide [Mag-Ox -] 400 mg PO BID tablet 06/09/18 Metoprolol Tartrate [Lopressor -] 25 mg PO BID tablet 06/09/18 Ranitidine [Zantac -] 150 mg PO HS tablet 06/09/18 Cefuroxime Axetil [Ceftin -] 500 mg PO BID #5 tablet 07/01/18 Cinacalcet HCl [Sensipar -] 30 mg PO DAILY 09/13/18 Clopidogrel Bisulfate [Plavix] 75 mg PO 09/13/18 Nebivolol HCl [Bystolic] 20 mg PO 09/13/18 Sitagliptin Phosphate [Januvia] 100 mg PO 09/13/18 Sodium Bicarbonate - 650 mg BID 09/13/18 Tamsulosin HCl 0.4 mg PO 09/13/18 metFORMIN XR [Glucophage Xr -] 750 mg PO DAILY 09/13/18 Colchicine [Colcrys] 0.6 mg PO DAILY cap 09/18/18 Heparin - 5,000 unit SQ BID vial 09/18/18 predniSONE [Deltasone -] 5 mg PO DAILY tablet 09/18/18
[2018-09-18] MEDS: ASTAGRAF 1 MG PO SCH (11:29)
[2018-09-18] MEDS: ISOSORBIDE MONONITRATE 20 MG TABLET PO SCH ×3 (11:30→19:52)
[2018-09-18] MEDS: NEBIVOLOL 10 MG TABLET (FP) PO SCH (11:30)
[2018-09-18] MEDS: TAMSULOSIN HCL 0.4 MG CAP PO SCH (11:30)
[2018-09-18] MEDS: HEPARIN NA (PORCINE) 5,000 UNITS/ML 1ML VIAL SQ SCH ×2 (11:31→21:00)
[2018-09-18] MEDS: azaTHIOprine 50 MG TABLET PO SCH (11:31)
[2018-09-18] MEDS: SODIUM BICARBONATE 650 MG TABLET PO SCH ×2 (11:33→21:00)
[2018-09-18] MEDS: CLOPIDOGREL BISULFATE 75 MG TABLET (FP) PO SCH (11:33)
[2018-09-18] MEDS: amLODIPine BESYLATE 5 MG TABLET (FP) PO SCH (11:33)
[2018-09-18] MEDS: COLCHICINE 0.6 MG CAP PO SCH (11:33)
[2018-09-18] MEDS: predniSONE 5 MG TABLET (UD) PO SCH (11:33)
[2018-09-18] MEDS: CINACALCET HCL 30 MG TAB (FP) PO SCH (11:34)
[2018-09-18] MEDS ORDERED: PT OWN MED DRAWER 7, Y5N ONE (15:20)
[2018-09-18] MEDS: ACETAMINOPHEN 325 MG TABLET (FP) PO PRN (21:00)
[2018-09-19] MEDS ORDERED: PT OWN MED DRAWER 7, Y5N ONE (06:25)
[2018-09-19] MEDS: INSULIN SLIDING SCALE (NOVOLOG) 1 VIAL SQ SCH ×2 (06:54→11:42)
[2018-09-19] MEDS: INSULIN (LEVEMIR) 100 UNITS/ML UNITS SQ SCH (06:54)
[2018-09-19 09:51] VITALS: BP 153/55; PULSE 67; TEMP 97.9
[2018-09-19] MEDS: ISOSORBIDE MONONITRATE 20 MG TABLET PO SCH (09:56)
[2018-09-19] MEDS: NEBIVOLOL 10 MG TABLET (FP) PO SCH (09:57)
[2018-09-19] MEDS: CINACALCET HCL 30 MG TAB (FP) PO SCH (09:57)
[2018-09-19] MEDS: SODIUM BICARBONATE 650 MG TABLET PO SCH (09:57)
[2018-09-19] MEDS: TAMSULOSIN HCL 0.4 MG CAP PO SCH (09:57)
[2018-09-19] MEDS: amLODIPine BESYLATE 5 MG TABLET (FP) PO SCH (09:58)
[2018-09-19] MEDS: HEPARIN NA (PORCINE) 5,000 UNITS/ML 1ML VIAL SQ SCH (09:58)
[2018-09-19] MEDS: azaTHIOprine 50 MG TABLET PO SCH (09:58)
[2018-09-19] MEDS: COLCHICINE 0.6 MG CAP PO SCH (09:59)
[2018-09-19] MEDS: CLOPIDOGREL BISULFATE 75 MG TABLET (FP) PO SCH (09:59)
[2018-09-19] MEDS: predniSONE 5 MG TABLET (UD) PO SCH (09:59)
[2018-09-19] MEDS: ASTAGRAF 1 MG PO SCH (10:00)
== END 2018-09-19 12:43 | DRG 556 ==
LOC: JER 09:54 → JERBED 13:43 → OBSVTOIN 14:45 → J7W 17:30
PROVIDERS: ADMIT Family Medicine; ATTEND Family Medicine
DX: M25.541 Pain in joints of right hand (principal); Z94.0 Kidney transplant status; L97.418 Non-pressure chronic ulcer of right heel and midfoot with other specified severity; S52.611K Displaced fracture of right ulna styloid process, subsequent encounter for closed fracture with nonunion; M25.542 Pain in joints of left hand; E11.40 Type 2 diabetes mellitus with diabetic neuropathy, unspecified; W18.39XA Other fall on same level, initial encounter; Y93.89 Activity, other specified; Y92.098 Other place in other non-institutional residence as the place of occurrence of the external cause; E78.5 Hyperlipidemia, unspecified; I12.9 Hypertensive chronic kidney disease with stage 1 through stage 4 chronic kidney disease, or unspecified chronic kidney disease; E11.22 Type 2 diabetes mellitus with diabetic chronic kidney disease; N18.9 Chronic kidney disease, unspecified; I25.10 Atherosclerotic heart disease of native coronary artery without angina pectoris; R07.89 Other chest pain; E11.621 Type 2 diabetes mellitus with foot ulcer; Z79.4 Long term (current) use of insulin; Z86.73 Personal history of transient ischemic attack (TIA), and cerebral infarction without residual deficits; Z95.5 Presence of coronary angioplasty implant and graft
CPT/HCPCS: 36415; 70450-TC; 71046-TC-FY; 72125-TC; 73130-TC-LT-FY; 73130-TC-RT-FY; 80053; 80061; 80197; 81003; 82550; 82962; 83036; 83721; 83735; 84100; 84436; 84443; 84484; 84550; 85025; 85027; 85610; 85651; 86038; 86140; 86431; 87086; 93005; 93010; 97116-GP; 97162-GP; 99284-25; G0378; J0131; J1644

== ENCOUNTER 2018-10-03 10:43 | Emergency (ER) | payer OTHER ==
[2018-10-03 10:50] VITALS: BMI 20.7
--- NOTE | 2018-10-03 13:21 | PDOC ---
Documentation entered by Adenike Cheung SCRIBE, acting as scribe for Bartolome Alberto MD. Bartolome Alberto MD: This documentation has been prepared by the Skye vargas Sammi, SCRIBE, under my direction and personally reviewed by me in its entirety. I confirm that the documentation accurately reflects all work, treatment, procedures, and medical decision making performed by me. History of Present Illness - General Chief Complaint: Injury Stated Complaint: FALL Time Seen by Provider: 10/03/18 11:06 - History of Present Illness Initial Comments: 10/03/18 12:17 The patient is a 68 year old male, with a significant PMH of CKD, NIID, HTN, HLD , CAD, left eye blindness, who presents to the emergency department from [facility] for evaluation s/p fall this morning. The patient is confused and is having trouble providing a good history. The patient states he was standing up from a lying position when he felt dizzy and fell to the ground on his back. He reports hitting his head. The patient complains of bilateral hand pain which he notes is chronic. Denies any other complaints at this time. Past History - Past Medical History Allergies/Adverse Reactions: Allergies Allergy/AdvReac Type Severity Reaction Status Date / Time No Known Allergies Allergy Verified 09/13/18 10:19 Home Medications: Ambulatory Orders Azathioprine [Imuran] 150 mg PO DAILY 07/08/17 Prednisone 5 mg PO DAILY 07/08/17 Finasteride 5 mg PO DAILY 06/04/18 Magnesium Oxide [Mag-Ox -] 400 mg PO BID tablet 06/09/18 Metoprolol Tartrate [Lopressor -] 25 mg PO BID tablet 06/09/18 Ranitidine [Zantac -] 150 mg PO HS tablet 06/09/18 Clopidogrel Bisulfate [Plavix] 75 mg PO DAILY 09/13/18 Sitagliptin Phosphate [Januvia] 100 mg PO DAILY 09/13/18 Sodium Bicarbonate - 650 mg BID 09/13/18 Tamsulosin HCl 0.4 mg PO DAILY 09/13/18 Colchicine [Colcrys] 0.6 mg PO DAILY cap 09/18/18 Heparin - 5,000 unit SQ BID vial 09/18/18 Acetaminophen [Tylenol] 650 mg PO QID PRN 10/03/18 Cinacalcet HCl [Sensipar -] 30 mg PO DAILY 10/03/18 Insulin (LOG) Aspart [NovoLOG -] 0 units SQ ASDIR 10/03/18 Insulin Detemir [Levemir Flextouch] 20 unit SQ ASDIR 10/03/18 metFORMIN XR [Glucophage *Xr* -] 750 mg PO DAILY 10/03/18 Anemia: No Asthma: No Cancer: No Cardiac Disorders: Yes (CAD, stent) CVA: No COPD: No CHF: No DVT: No Dementia: No Diabetes: Yes Dialysis: No (kidney transplatn,lt arm fistula) GI Disorders: Yes Disorders: No HTN: Yes Hypercholesterolemia: Yes Liver Disease: No Seizures: No Thyroid Disease: No - Surgical History Abdominal Surgery: Yes (hernia) Appendectomy: No Cardiac Surgery: Yes (stent placement) Cholecystectomy: No Lung Surgery: No Neurologic Surgery: No Orthopedic Surgery: Yes (debridement or R foot diabetic ulcer) - Immunization History Immunization Up to Date: Yes - Suicide/Smoking/Psychosocial Hx Smoking History: Never smoked Have you smoked in the past 12 months: No Information on smoking cessation initiated: No Hx Alcohol Use: No Drug/Substance Use Hx: No Substance Use Type: None Hx Substance Use Treatment: No Review of Systems - Review of Systems Comments:: 10/03/18 12:17 ROS: A complete review of 10 out of 10 review of systems is taken and is negative apart from what is previously mentioned below and in the HPI. *Physical Exam - Vital Signs Last Vital Signs Temp Pulse Resp BP Pulse Ox 97 F L 68 18 158/62 98 10/03/18 10:45 10/03/18 10:45 10/03/18 10:45 10/03/18 10:45 10/03/18 10:45 - Physical Exam Comments: 10/03/18 12:17 Vitals: Triage vital signs reviewed General Appearance: No acute distress, well nourished, well developed Head: Atraumatic Neck: Supple; No nuchal rigidity Chest Wall: Nontender Cardiac: Regular rate and rhythm, no murmurs, no rubs, no gallops Lungs: Clear to auscultation bilateral, good air movement bilaterally Abdomen: Soft, nondistended, normal bowel sounds, nontender to palpation Extremities: Full range of motion to all extremities, no cyanosis, clubbing, or edema Skin: Warm and dry Neuro: AOX2; Cranial Nerves 2-12 grossly intact, Strength intact to all extremities, Sensation intact to all extremities, gait normal Psych: Normal mood, normal affect Heart Score/ECG Review - ECG Impressions Comment:: 10/03/18 13:22 EKG performed at 1226 demonstrates normal sinus rhythm left axis deviation no ST elevations no T-wave inversions. Interpreted by me. ED Treatment Course - LABORATORY CBC & Chemistry Diagram: 10/03/18 15:08 10/03/18 12:08 Medical Decision Making - Medical Decision Making 10/03/18 13:22 Patient sent from [facility] for evaluation of fall this morning. Patient poor historian high fall risk states he felt dizzy and fell. We'll perform an EKG labs head CT with no acute findings patient be transferred back to [facility]. Well-appearing no apparent distress with fall at long-term. Case discussed with long-term. Patient is at his baseline mental status Labs urine head CT chest x-ray all within normal limits. Patient stable for transfer back to long-term *DC/Admit/Observation/Transfer Diagnosis at time of Disposition: Fall Qualifiers: Encounter type: initial encounter Qualified Code(s): W19.XXXA - Unspecified fall, initial encounter - Discharge Dispostion Disposition: HOME Decision to Admit order: No - Referrals Referrals: Joesph Gilliland [Primary Care Provider] - - Patient Instructions Printed Discharge Instructions: How to Prevent Falls Additional Instructions: Please place patient on highest level fall precautions. Have patient seen by his primary care provider in 1-2 days. Return to ED for any concerns. - Post Discharge Activity
[2018-10-03 13:31] LABS: ALBUMIN 3.4 g/dl (3.4-5.0); ALK PHOS 82 U/L (45-117); ANION GAP 10 MMOL/L (8-16); BILIRUBIN,TOTAL 0.6 mg/dL (0.2-1); BLOOD UREA NITROGEN 34.7 mg/dL (7-18); CALCIUM 9.7 mg/dL (8.5-10.1); CHLORIDE 105 mmol/L (98-107); CO2 24 mmol/L (21-32); CREATININE 1.6 mg/dL (0.55-1.3); GLUCOSE,RANDOM 271 mg/dL (74-106); POTASSIUM 4.9 mmol/L (3.5-5.1); SGOT/AST 16 U/L (15-37); SGPT/ALT 27 U/L (13-61); SODIUM 139 mmol/L (136-145); TOT PROT 6.5 g/dl (6.4-8.2)
[2018-10-03 16:05] LABS: BASO % 0.3 % (0-2.0); EOS % 3.9 % (0-4.5); HEMATOCRIT 35.7 % (35.4-49); HEMOGLOBIN 11.5 GM/dL (11.7-16.9); LYMPH % 43.6 % (8-40); MCHC 32.2 g/dl (32.0-35.9); MEAN CELL VOLUME 83.7 fl (80-96); MEAN PLT VOLUME 7.6 fl (7.5-11.1); MONO % 11.7 % (3.8-10.2); NEUT % 40.5 % (42.8-82.8); PLATELET COUNT 189 K/MM3 (134-434); RBC 4.27 M/mm3 (4.00-5.60); RDW 22.3 % (11.9-15.9); WHITE BLOOD COUNT 3.2 K/mm3 (4.0-10.0)
[2018-10-03 16:10] LABS: URINE APPEARANCE CLOUDY; URINE BILIRUBIN NEGATIVE (NEGATIVE); URINE COLOR YELLOW; URINE GLUCOSE (UA) 3+ (NEGATIVE); URINE KETONE NEGATIVE (NEGATIVE); URINE LEUK ESTERASE NEGATIVE (NEGATIVE); URINE NITRITE NEGATIVE (NEGATIVE); URINE PROTEIN NEGATIVE (NEGATIVE); URINE UROBILINOGEN 0.2 mg/dL (0.2-1.0)
[2018-10-03 16:53] LABS: ANISOCYTOSIS 3+; MACROCYTOSIS 1+; OVALOCYTE 1+
[2018-10-03 16:54] LABS: PLATELET ESTIMATE ADEQUATE
[2018-10-03 18:10] VITALS: BP 186/57; PULSE 74; TEMP 97.8
--- NOTE | 2018-10-04 10:54 | EKG ---
Test Reason : Blood Pressure : / mmHG Vent. Rate : 066 BPM Atrial Rate : 066 BPM P-R Int : 164 ms QRS Dur : 092 ms QT Int : 402 ms P-R-T Axes : 070 -32 040 degrees QTc Int : 421 ms NORMAL SINUS RHYTHM LEFT AXIS DEVIATION ABNORMAL ECG WHEN COMPARED WITH ECG OF 13-SEP-2018 10:12, NO SIGNIFICANT CHANGE WAS FOUND Confirmed by PORSHA MCBRIDE MD ([id number]) on 10/04/2018 10:54:10 AM Referred By: Confirmed By:PORSHA MCBRIDE MD
== END 2018-10-03 19:21 ==
LOC: JER 10:43
DX: R42 Dizziness and giddiness (principal); M79.641 Pain in right hand; M79.642 Pain in left hand; W18.39XA Other fall on same level, initial encounter; Y93.89 Activity, other specified; Y92.122 Bedroom in nursing home as the place of occurrence of the external cause; Y99.8 Other external cause status; I25.10 Atherosclerotic heart disease of native coronary artery without angina pectoris; I25.83 Coronary atherosclerosis due to lipid rich plaque; I13.10 Hypertensive heart and chronic kidney disease without heart failure, with stage 1 through stage 4 chronic kidney disease, or unspecified chronic kidney disease; N18.9 Chronic kidney disease, unspecified; Z94.0 Kidney transplant status; Z95.5 Presence of coronary angioplasty implant and graft; E11.22 Type 2 diabetes mellitus with diabetic chronic kidney disease; Z79.4 Long term (current) use of insulin; E78.5 Hyperlipidemia, unspecified; H54.62 Unqualified visual loss, left eye, normal vision right eye
CPT/HCPCS: 36415; 70450-TC; 71045-TC-FY; 80053; 81003; 84484; 85025; 87077; 87086; 93005; 93010; 99283-25

== ENCOUNTER 2020-04-12 15:22 | Emergency (ER) | payer OTHER ==
[2020-04-12 15:40] VITALS: BMI 25.0
[2020-04-13 00:31] VITALS: BP 185/67; PULSE 69; TEMP 98.9
== END 2020-04-13 00:39 | disposition home or self-care (01) ==
LOC: JER 15:22
DX: Z76.0 Encounter for issue of repeat prescription (principal)
CPT/HCPCS: 93005; 93010; 99284-25

== ENCOUNTER 2020-07-01 12:18 | Inpatient (IN) | payer OTHER ==
[2020-07-01 14:49] LABS: BASO % 0.4 % (0-2.0); EOS % 0.4 % (0-4.5); HEMATOCRIT 33.9 % (35.4-49); LYMPH % 33.8 % (8-40); MCH 30.7 pg (25.7-33.7); MCHC 32.6 g/dl (32.0-35.9); MEAN CELL VOLUME 94.1 fl (80-96); MEAN PLT VOLUME 7.2 fl (7.5-11.1); MONO % 9.6 % (3.8-10.2); NEUT % 55.8 % (42.8-82.8); PLATELET COUNT 210 K/MM3 (134-434); RDW 24.2 % (11.9-15.9); WHITE BLOOD COUNT 2.5 K/mm3 (4.0-10.0)
[2020-07-01 14:56] LABS: INR 0.92 (0.83-1.09); PROTHROMBIN TIME (PATIENT) 11.2 SEC (9.7-13.0)
[2020-07-01 14:59] LABS: ACTIVATED PTT 27.4 SECONDS (25.2-36.5)
[2020-07-01 15:06] LABS: CHLORIDE 102 mmol/L (98-107); SODIUM 139 mmol/L (136-145)
[2020-07-01 15:09] LABS: ALBUMIN 3.7 g/dl (3.4-5.0); CALCIUM 9.4 mg/dL (8.5-10.1); GLUCOSE,RANDOM 216 mg/dL (74-106)
[2020-07-01 15:10] LABS: ANION GAP 8 MMOL/L (8-16); BLOOD UREA NITROGEN 28.7 mg/dL (7-18); CO2 29 mmol/L (21-32); MAGNESIUM 1.4 mg/dL (1.8-2.4)
[2020-07-01 15:12] LABS: CREATININE 1.1 mg/dL (0.55-1.3); PHOSPHOROUS 2.7 mg/dL (2.5-4.9); SGOT/AST 10 U/L (15-37); SGPT/ALT 22 U/L (13-61)
[2020-07-01 15:13] LABS: BILIRUBIN,TOTAL 0.9 mg/dL (0.2-1)
[2020-07-01 15:14] LABS: TOT PROT 7.4 g/dl (6.4-8.2)
[2020-07-01 15:15] LABS: ALK PHOS 100 U/L (45-117)
[2020-07-01 15:35] LABS: ANISOCYTOSIS 1+; MACROCYTOSIS 1+; OVALOCYTE 1+; PLATELET ESTIMATE NORMAL; TEAR DROP CELLS 1+
[2020-07-01] MEDS ORDERED: MAGNESIUM SULF 50% (8.12 MEQ/2 ML-1 GM VIAL) IVPB ONE (16:09)
[2020-07-01] MEDS ORDERED: MAGNESIUM SULFATE IN WATER 2 GM/50 ML IVPB IVPB ONE (16:39)
[2020-07-01] MEDS ORDERED: HALOPERIDOL LACTATE 5 MG/ML IV ONE (16:55)
[2020-07-01] MEDS ORDERED: HALOPERIDOL LACTATE 5 MG/ML ONE (17:00)
[2020-07-01] MEDS ORDERED: HALOPERIDOL LACTATE 5 MG/ML IM ONE (17:04)
[2020-07-01] MEDS: COLLAGENASE CLOSTRIDIUM HIST. 30 GRAMS TUBE TP SCH ×2 (21:00→23:14)
[2020-07-01] MEDS ORDERED: PATIENT'S OWN MEDICATION (NON-FORMULARY) (Melatonin [Melatonin] 3 MG Capsule) PO SCH (22:00)
[2020-07-01] MEDS: DOCUSATE SODIUM 100 MG CAPSULE (FP) PO SCH (22:09)
[2020-07-01] MEDS: MAGNESIUM OXIDE 400 MG TABLET (FP) PO SCH (22:09)
[2020-07-01] MEDS: ASCORBIC ACID 500 MG TABLET (FP) PO SCH (22:09)
[2020-07-01] MEDS: ATORVASTATIN CA 10 MG TABLET (FP) PO SCH (22:09)
[2020-07-01] MEDS: SODIUM BICARBONATE 650 MG TABLET PO SCH (22:09)
[2020-07-01] MEDS: FAMOTIDINE 10 MG TABLET PO SCH (22:10)
[2020-07-01] MEDS: INSULIN SLIDING SCALE (NOVOLOG) 1 VIAL SQ SCH (22:17)
[2020-07-01] MEDS: ZINC SULFATE 220 MG CAPSULE (FP) PO SCH (22:30)
[2020-07-01] MEDS: MELATONIN 1 MG TABLET PO SCH (22:34)
[2020-07-02] MEDS: INSULIN SLIDING SCALE (NOVOLOG) 1 VIAL SQ SCH ×5 (06:45→22:25)
[2020-07-02] MEDS ORDERED: PT OWN MED DRAWER 7, Y5N ONE (07:38)
[2020-07-02 07:54] LABS: BASO % 0.3 % (0-2.0); EOS % 0.8 % (0-4.5); HEMOGLOBIN 10.7 GM/dL (11.7-16.9); LYMPH % 31.6 % (8-40); MCHC 33.3 g/dl (32.0-35.9); MEAN CELL VOLUME 92.9 fl (80-96); MEAN PLT VOLUME 6.8 fl (7.5-11.1); MONO % 9.9 % (3.8-10.2); NEUT % 57.4 % (42.8-82.8); PLATELET COUNT 194 K/MM3 (134-434); RBC 3.45 M/mm3 (4.00-5.60); RDW 23.8 % (11.9-15.9); WHITE BLOOD COUNT 2.5 K/mm3 (4.0-10.0)
[2020-07-02 08:06] LABS: CALCIUM 9.4 mg/dL (8.5-10.1)
[2020-07-02 08:07] LABS: BLOOD UREA NITROGEN 29.1 mg/dL (7-18); MAGNESIUM 1.4 mg/dL (1.8-2.4)
[2020-07-02 08:09] LABS: ALBUMIN 3.2 g/dl (3.4-5.0)
[2020-07-02 08:10] LABS: PHOSPHOROUS 2.7 mg/dL (2.5-4.9)
[2020-07-02 08:11] LABS: BILIRUBIN,TOTAL 0.9 mg/dL (0.2-1); TOT PROT 6.4 g/dl (6.4-8.2)
[2020-07-02] MEDS ORDERED: MAGNESIUM SULF 50% (8.12 MEQ/2 ML-1 GM VIAL) IVPB ONE ×2 (09:45→17:00)
[2020-07-02] MEDS ORDERED: PATIENT'S OWN MEDICATION (NON-FORMULARY) (Multivitamin [Multivitamin] 1 EACH Tablet) PO SCH (10:00)
[2020-07-02] MEDS ORDERED: LIDOCAINE 1%/EPI 1:100000 (20 ML MULTI DOSE VIAL) INF ONE (10:47)
[2020-07-02] MEDS: TAMSULOSIN HCL 0.4 MG CAP PO SCH (12:24)
[2020-07-02] MEDS: ASPIRIN 81 MG CHEWABLE TABLETS PO SCH (12:24)
[2020-07-02] MEDS: VALSARTAN 40 MG TABLET PO SCH ×2 (12:24→13:03)
[2020-07-02] MEDS: azaTHIOprine 50 MG TABLET PO SCH (12:25)
[2020-07-02] MEDS: ZINC SULFATE 220 MG CAPSULE (FP) PO SCH ×2 (12:25→22:25)
[2020-07-02] MEDS: MAGNESIUM OXIDE 400 MG TABLET (FP) PO SCH ×3 (12:25→22:24)
[2020-07-02] MEDS: FINASTERIDE 5 MG TABLET (FP) PO SCH (12:25)
[2020-07-02] MEDS: CLOPIDOGREL BISULFATE 75 MG TABLET (FP) PO SCH ×2 (12:25→13:03)
[2020-07-02] MEDS: COLLAGENASE CLOSTRIDIUM HIST. 30 GRAMS TUBE TP SCH (12:26)
[2020-07-02] MEDS: SODIUM BICARBONATE 650 MG TABLET PO SCH ×2 (12:27→22:24)
[2020-07-02] MEDS: ASCORBIC ACID 500 MG TABLET (FP) PO SCH ×2 (12:27→22:24)
[2020-07-02] MEDS: MULTIVITAMINS (DAILY MVI) TABLET (FP) PO SCH (12:27)
[2020-07-02] MEDS: CINACALCET HCL 30 MG TAB (FP) PO SCH (12:27)
[2020-07-02] MEDS: AMOX TR/POT CLAV 875MG/125MG TABLETS (FP) PO SCH ×2 (13:03→17:15)
[2020-07-02] MEDS: ATORVASTATIN CA 10 MG TABLET (FP) PO SCH (22:24)
[2020-07-02] MEDS: MELATONIN 1 MG TABLET PO SCH (22:24)
[2020-07-02] MEDS: DOCUSATE SODIUM 100 MG CAPSULE (FP) PO SCH (22:24)
[2020-07-02] MEDS: MEMANTINE HCL 5 MG TABLET (UD) PO SCH (22:25)
[2020-07-02] MEDS: FAMOTIDINE 10 MG TABLET PO SCH (22:25)
[2020-07-03] MEDS: INSULIN SLIDING SCALE (NOVOLOG) 1 VIAL SQ SCH ×4 (06:04→21:40)
[2020-07-03 07:23] LABS: HEMATOCRIT 31.2 % (35.4-49); HEMOGLOBIN 10.4 GM/dL (11.7-16.9); MCH 31.3 pg (25.7-33.7); MCHC 33.3 g/dl (32.0-35.9); MEAN CELL VOLUME 94.2 fl (80-96); MEAN PLT VOLUME 7.8 fl (7.5-11.1); PLATELET COUNT 182 K/MM3 (134-434); RBC 3.32 M/mm3 (4.00-5.60); RDW 23.9 % (11.9-15.9); WHITE BLOOD COUNT 2.7 K/mm3 (4.0-10.0)
[2020-07-03 07:54] LABS: CALCIUM 9.4 mg/dL (8.5-10.1)
[2020-07-03 07:55] LABS: ALBUMIN 3.1 g/dl (3.4-5.0); BLOOD UREA NITROGEN 26.2 mg/dL (7-18); MAGNESIUM 2.1 mg/dL (1.8-2.4)
[2020-07-03 07:58] LABS: CREATININE 1.1 mg/dL (0.55-1.3)
[2020-07-03 07:59] LABS: BILIRUBIN,TOTAL 0.9 mg/dL (0.2-1); TOT PROT 6.3 g/dl (6.4-8.2)
[2020-07-03] MEDS: AMOX TR/POT CLAV 875MG/125MG TABLETS (FP) PO SCH ×2 (08:27→17:32)
[2020-07-03] MEDS ORDERED: PT OWN MED DRAWER 7, Y5N ONE (09:41)
[2020-07-03] MEDS ORDERED: ENOXAPARIN NA (PORCINE) 40 MG/0.4 ML DISP.SYRIN SQ SCH (10:00)
[2020-07-03] MEDS: ENOXAPARIN NA (PORCINE) 40 MG/0.4 ML DISP.SYRIN SQ SCH (10:05)
[2020-07-03] MEDS: VALSARTAN 40 MG TABLET PO SCH (10:06)
[2020-07-03] MEDS: MAGNESIUM OXIDE 400 MG TABLET (FP) PO SCH ×2 (10:06→21:33)
[2020-07-03] MEDS: CINACALCET HCL 30 MG TAB (FP) PO SCH (10:06)
[2020-07-03] MEDS: FINASTERIDE 5 MG TABLET (FP) PO SCH (10:06)
[2020-07-03] MEDS: ASCORBIC ACID 500 MG TABLET (FP) PO SCH ×2 (10:06→21:33)
[2020-07-03] MEDS: MULTIVITAMINS (DAILY MVI) TABLET (FP) PO SCH (10:06)
[2020-07-03] MEDS: MEMANTINE HCL 5 MG TABLET (UD) PO SCH ×2 (10:06→22:37)
[2020-07-03] MEDS: SODIUM BICARBONATE 650 MG TABLET PO SCH ×2 (10:06→21:33)
[2020-07-03] MEDS: azaTHIOprine 50 MG TABLET PO SCH (10:06)
[2020-07-03] MEDS: ASPIRIN 81 MG CHEWABLE TABLETS PO SCH (10:06)
[2020-07-03] MEDS: ZINC SULFATE 220 MG CAPSULE (FP) PO SCH ×2 (10:06→21:33)
[2020-07-03] MEDS: CLOPIDOGREL BISULFATE 75 MG TABLET (FP) PO SCH (10:06)
[2020-07-03] MEDS: TAMSULOSIN HCL 0.4 MG CAP PO SCH (10:06)
[2020-07-03] MEDS: COLLAGENASE CLOSTRIDIUM HIST. 30 GRAMS TUBE TP SCH (11:59)
[2020-07-03] MEDS ORDERED: LIDOCAINE 1%/EPI 1:100000 (20 ML MULTI DOSE VIAL) INF ONE (13:45)
[2020-07-03] MEDS ORDERED: VANCOMYCIN 1,000 MG in DEXTROSE 5%-WATER - 250 ML IVPB ONE (16:35)
[2020-07-03] MEDS ORDERED: VANCOMYCIN 750 MG in DEXTROSE 5%-WATER - 250 ML IVPB ONE (16:36)
[2020-07-03] MEDS: DOCUSATE SODIUM 100 MG CAPSULE (FP) PO SCH (21:32)
[2020-07-03] MEDS: ATORVASTATIN CA 10 MG TABLET (FP) PO SCH (21:32)
[2020-07-03] MEDS: FAMOTIDINE 10 MG TABLET PO SCH (21:33)
[2020-07-03] MEDS: MELATONIN 1 MG TABLET PO SCH (21:33)
[2020-07-04] MEDS: INSULIN SLIDING SCALE (NOVOLOG) 1 VIAL SQ SCH ×5 (06:02→21:58)
[2020-07-04 08:03] LABS: HEMATOCRIT 28.3 % (35.4-49); HEMOGLOBIN 9.3 GM/dL (11.7-16.9); MEAN CELL VOLUME 93.7 fl (80-96); MEAN PLT VOLUME 7.7 fl (7.5-11.1); PLATELET COUNT 158 K/MM3 (134-434); RBC 3.02 M/mm3 (4.00-5.60); RDW 23.9 % (11.9-15.9); WHITE BLOOD COUNT 2.2 K/mm3 (4.0-10.0)
[2020-07-04 08:13] LABS: CALCIUM 8.9 mg/dL (8.5-10.1)
[2020-07-04 08:14] LABS: BLOOD UREA NITROGEN 27.8 mg/dL (7-18); MAGNESIUM 1.9 mg/dL (1.8-2.4)
[2020-07-04] MEDS ORDERED: PT OWN MED DRAWER 7, Y5N ONE (09:13)
[2020-07-04] MEDS: CLOPIDOGREL BISULFATE 75 MG TABLET (FP) PO SCH (12:34)
[2020-07-04] MEDS: ZINC SULFATE 220 MG CAPSULE (FP) PO SCH ×2 (12:34→21:37)
[2020-07-04] MEDS: CINACALCET HCL 30 MG TAB (FP) PO SCH (12:34)
[2020-07-04] MEDS: ASCORBIC ACID 500 MG TABLET (FP) PO SCH ×2 (12:34→21:38)
[2020-07-04] MEDS: AMOX TR/POT CLAV 875MG/125MG TABLETS (FP) PO SCH (12:34)
[2020-07-04] MEDS: MULTIVITAMINS (DAILY MVI) TABLET (FP) PO SCH (12:34)
[2020-07-04] MEDS: FINASTERIDE 5 MG TABLET (FP) PO SCH (12:34)
[2020-07-04] MEDS: SODIUM BICARBONATE 650 MG TABLET PO SCH ×2 (12:34→21:39)
[2020-07-04] MEDS: TAMSULOSIN HCL 0.4 MG CAP PO SCH (12:35)
[2020-07-04] MEDS: ENOXAPARIN NA (PORCINE) 40 MG/0.4 ML DISP.SYRIN SQ SCH (12:35)
[2020-07-04] MEDS: ASPIRIN 81 MG CHEWABLE TABLETS PO SCH (12:35)
[2020-07-04] MEDS: VALSARTAN 40 MG TABLET PO SCH (12:35)
[2020-07-04] MEDS: MEMANTINE HCL 5 MG TABLET (UD) PO SCH ×2 (12:35→21:37)
[2020-07-04] MEDS: MAGNESIUM OXIDE 400 MG TABLET (FP) PO SCH ×2 (12:35→21:38)
[2020-07-04] MEDS: azaTHIOprine 50 MG TABLET PO SCH (12:36)
[2020-07-04] MEDS ORDERED: AMPICILLIN NA/SULBACTAM NA 1.5 GM VIAL ONE ×2 (14:31→20:16)
[2020-07-04] MEDS ORDERED: SODIUM CHLORIDE 100 ML IVPB ONE ×2 (14:31→20:16)
[2020-07-04] MEDS: valACYclovir HCL 500 MG TABLET (FP) PO SCH ×2 (14:33→21:35)
[2020-07-04] MEDS: AMPICILLIN NA/SULBACTAM NA 1.5 GM in SODIUM CHLORIDE 100 ML IVPB SCH ×2 (14:33→20:18)
[2020-07-04 14:55] LABS: ANISOCYTOSIS 1+; MACROCYTOSIS 1+; PLATELET ESTIMATE NORMAL
[2020-07-04] MEDS: AMINO ACIDS/PROTEIN HYDROLYS 30 ML LIQUID.PKT PO SCH (18:01)
[2020-07-04] MEDS: DOCUSATE SODIUM 100 MG CAPSULE (FP) PO SCH (21:37)
[2020-07-04] MEDS: MELATONIN 1 MG TABLET PO SCH (21:38)
[2020-07-04] MEDS: ATORVASTATIN CA 10 MG TABLET (FP) PO SCH (21:39)
[2020-07-04] MEDS: FAMOTIDINE 10 MG TABLET PO SCH (21:39)
[2020-07-05] MEDS ORDERED: SODIUM CHLORIDE 100 ML IVPB ONE ×4 (02:21→21:52)
[2020-07-05] MEDS ORDERED: AMPICILLIN NA/SULBACTAM NA 1.5 GM VIAL ONE ×4 (02:21→21:52)
[2020-07-05] MEDS: AMPICILLIN NA/SULBACTAM NA 1.5 GM in SODIUM CHLORIDE 100 ML IVPB SCH ×4 (02:25→21:59)
[2020-07-05] MEDS: valACYclovir HCL 500 MG TABLET (FP) PO SCH ×3 (05:27→22:05)
[2020-07-05] MEDS: INSULIN SLIDING SCALE (NOVOLOG) 1 VIAL SQ SCH ×4 (07:09→22:11)
[2020-07-05 08:09] LABS: ALBUMIN 2.7 g/dl (3.4-5.0); BLOOD UREA NITROGEN 26.1 mg/dL (7-18); CALCIUM 8.1 mg/dL (8.5-10.1); MAGNESIUM 1.7 mg/dL (1.8-2.4)
[2020-07-05 08:13] LABS: BASO % 0.4 % (0-2.0); CREATININE 0.9 mg/dL (0.55-1.3); EOS % 4.3 % (0-4.5); LYMPH % 44.3 % (8-40); MCH 31.6 pg (25.7-33.7); MCHC 34.8 g/dl (32.0-35.9); MEAN CELL VOLUME 90.9 fl (80-96); MONO % 7.7 % (3.8-10.2); NEUT % 43.3 % (42.8-82.8); PLATELET COUNT 160 K/MM3 (134-434); RBC 2.86 M/mm3 (4.00-5.60); RDW 23.2 % (11.9-15.9); WHITE BLOOD COUNT 2.1 K/mm3 (4.0-10.0)
[2020-07-05 08:14] LABS: BILIRUBIN,TOTAL 0.6 mg/dL (0.2-1); TOT PROT 5.7 g/dl (6.4-8.2)
[2020-07-05] MEDS: AMINO ACIDS/PROTEIN HYDROLYS 30 ML LIQUID.PKT PO SCH ×2 (08:41→16:32)
[2020-07-05] MEDS: ENOXAPARIN NA (PORCINE) 40 MG/0.4 ML DISP.SYRIN SQ SCH (09:28)
[2020-07-05] MEDS: SODIUM BICARBONATE 650 MG TABLET PO SCH ×2 (09:29→22:11)
[2020-07-05] MEDS: MAGNESIUM OXIDE 400 MG TABLET (FP) PO SCH ×2 (09:29→22:06)
[2020-07-05] MEDS: ZINC SULFATE 220 MG CAPSULE (FP) PO SCH ×2 (09:29→22:12)
[2020-07-05] MEDS: TAMSULOSIN HCL 0.4 MG CAP PO SCH (09:29)
[2020-07-05] MEDS: VALSARTAN 40 MG TABLET PO SCH (09:29)
[2020-07-05] MEDS: FINASTERIDE 5 MG TABLET (FP) PO SCH (09:29)
[2020-07-05] MEDS: MEMANTINE HCL 5 MG TABLET (UD) PO SCH ×2 (09:29→22:06)
[2020-07-05] MEDS: ASCORBIC ACID 500 MG TABLET (FP) PO SCH ×2 (09:29→22:06)
[2020-07-05] MEDS: CINACALCET HCL 30 MG TAB (FP) PO SCH (09:29)
[2020-07-05] MEDS: MULTIVITAMINS (DAILY MVI) TABLET (FP) PO SCH (09:29)
[2020-07-05] MEDS: CLOPIDOGREL BISULFATE 75 MG TABLET (FP) PO SCH (09:29)
[2020-07-05] MEDS: ASPIRIN 81 MG CHEWABLE TABLETS PO SCH (09:29)
[2020-07-05] MEDS: azaTHIOprine 50 MG TABLET PO SCH (09:33)
[2020-07-05 11:05] LABS: ANISOCYTOSIS 2+; MACROCYTOSIS 0; OVALOCYTE 1+; PLATELET ESTIMATE NORMAL
[2020-07-05] MEDS: FAMOTIDINE 10 MG TABLET PO SCH (22:06)
[2020-07-05] MEDS: MELATONIN 1 MG TABLET PO SCH (22:06)
[2020-07-05] MEDS: ATORVASTATIN CA 10 MG TABLET (FP) PO SCH (22:06)
[2020-07-05] MEDS: DOCUSATE SODIUM 100 MG CAPSULE (FP) PO SCH (22:11)
[2020-07-06] MEDS ORDERED: AMPICILLIN NA/SULBACTAM NA 1.5 GM VIAL ONE ×4 (02:58→21:18)
[2020-07-06] MEDS ORDERED: SODIUM CHLORIDE 100 ML IVPB ONE ×4 (02:58→21:19)
[2020-07-06] MEDS: AMPICILLIN NA/SULBACTAM NA 1.5 GM in SODIUM CHLORIDE 100 ML IVPB SCH ×4 (03:01→21:24)
[2020-07-06] MEDS: INSULIN SLIDING SCALE (NOVOLOG) 1 VIAL SQ SCH ×4 (06:34→21:37)
[2020-07-06] MEDS: valACYclovir HCL 500 MG TABLET (FP) PO SCH ×4 (06:34→22:00)
[2020-07-06] MEDS ORDERED: PT OWN MED DRAWER 7, Y5N ONE (09:15)
[2020-07-06] MEDS: AMINO ACIDS/PROTEIN HYDROLYS 30 ML LIQUID.PKT PO SCH ×3 (10:19→16:42)
[2020-07-06] MEDS: ENOXAPARIN NA (PORCINE) 40 MG/0.4 ML DISP.SYRIN SQ SCH (11:07)
[2020-07-06] MEDS: FINASTERIDE 5 MG TABLET (FP) PO SCH (11:08)
[2020-07-06] MEDS: MULTIVITAMINS (DAILY MVI) TABLET (FP) PO SCH (11:09)
[2020-07-06] MEDS: CLOPIDOGREL BISULFATE 75 MG TABLET (FP) PO SCH (11:09)
[2020-07-06] MEDS: MEMANTINE HCL 5 MG TABLET (UD) PO SCH ×2 (11:09→21:32)
[2020-07-06] MEDS: CINACALCET HCL 30 MG TAB (FP) PO SCH (11:09)
[2020-07-06] MEDS: ASPIRIN 81 MG CHEWABLE TABLETS PO SCH (11:10)
[2020-07-06] MEDS: MAGNESIUM OXIDE 400 MG TABLET (FP) PO SCH ×2 (11:10→21:31)
[2020-07-06] MEDS: azaTHIOprine 50 MG TABLET PO SCH ×2 (11:10→11:28)
[2020-07-06] MEDS: VALSARTAN 40 MG TABLET PO SCH (11:10)
[2020-07-06] MEDS: SODIUM BICARBONATE 650 MG TABLET PO SCH ×2 (11:11→21:31)
[2020-07-06] MEDS: ASCORBIC ACID 500 MG TABLET (FP) PO SCH ×2 (11:11→21:32)
[2020-07-06] MEDS: TAMSULOSIN HCL 0.4 MG CAP PO SCH (11:11)
[2020-07-06] MEDS: ZINC SULFATE 220 MG CAPSULE (FP) PO SCH ×2 (11:15→21:31)
[2020-07-06] MEDS: VANCOMYCIN 1 GRAM (PRE-DOCKED) 1,000 MG/250 ML BAG IVPB SCH (16:09)
[2020-07-06] MEDS ORDERED: diphenhydrAMINE HCL 25 MG CAPSULE (FP) PO PRN (18:05)
[2020-07-06 20:32] VITALS: BMI 17.6
[2020-07-06] MEDS: FAMOTIDINE 10 MG TABLET PO SCH (21:31)
[2020-07-06] MEDS: ATORVASTATIN CA 10 MG TABLET (FP) PO SCH (21:31)
[2020-07-06] MEDS: MELATONIN 1 MG TABLET PO SCH (21:31)
[2020-07-06] MEDS: DOCUSATE SODIUM 100 MG CAPSULE (FP) PO SCH (21:31)
[2020-07-06] MEDS ORDERED: amLODIPine BESYLATE 5 MG TABLET (FP) PO ONE (21:58)
[2020-07-07] MEDS ORDERED: AMPICILLIN NA/SULBACTAM NA 1.5 GM VIAL ONE ×2 (02:16→21:15)
[2020-07-07] MEDS ORDERED: SODIUM CHLORIDE 100 ML IVPB ONE ×2 (02:16→21:16)
[2020-07-07] MEDS: AMPICILLIN NA/SULBACTAM NA 1.5 GM in SODIUM CHLORIDE 100 ML IVPB SCH ×4 (04:16→21:33)
[2020-07-07] MEDS: valACYclovir HCL 500 MG TABLET (FP) PO SCH ×4 (06:03→21:42)
[2020-07-07] MEDS: INSULIN SLIDING SCALE (NOVOLOG) 1 VIAL SQ SCH ×5 (06:08→21:44)
[2020-07-07 08:03] LABS: BASO % 0.4 % (0-2.0); EOS % 5.2 % (0-4.5); HEMATOCRIT 25.9 % (35.4-49); HEMOGLOBIN 8.8 GM/dL (11.7-16.9); LYMPH % 34.8 % (8-40); MCH 31.7 pg (25.7-33.7); MCHC 34.1 g/dl (32.0-35.9); MEAN PLT VOLUME 7.8 fl (7.5-11.1); MONO % 9.4 % (3.8-10.2); NEUT % 50.2 % (42.8-82.8); PLATELET COUNT 159 K/MM3 (134-434); RBC 2.79 M/mm3 (4.00-5.60); RDW 22.5 % (11.9-15.9); WHITE BLOOD COUNT 2.4 K/mm3 (4.0-10.0)
[2020-07-07 08:22] LABS: CALCIUM 8.5 mg/dL (8.5-10.1)
[2020-07-07 08:23] LABS: ALBUMIN 2.7 g/dl (3.4-5.0)
[2020-07-07 08:26] LABS: CREATININE 0.9 mg/dL (0.55-1.3)
[2020-07-07 08:27] LABS: BILIRUBIN,TOTAL 0.7 mg/dL (0.2-1); TOT PROT 5.7 g/dl (6.4-8.2)
[2020-07-07] MEDS: ENOXAPARIN NA (PORCINE) 40 MG/0.4 ML DISP.SYRIN SQ SCH (09:26)
[2020-07-07] MEDS: AMINO ACIDS/PROTEIN HYDROLYS 30 ML LIQUID.PKT PO SCH ×2 (09:27→17:11)
[2020-07-07] MEDS: CLOPIDOGREL BISULFATE 75 MG TABLET (FP) PO SCH (09:27)
[2020-07-07] MEDS: azaTHIOprine 50 MG TABLET PO SCH (09:27)
[2020-07-07] MEDS: CINACALCET HCL 30 MG TAB (FP) PO SCH (09:27)
[2020-07-07] MEDS: SODIUM BICARBONATE 650 MG TABLET PO SCH ×2 (09:27→21:28)
[2020-07-07] MEDS: FINASTERIDE 5 MG TABLET (FP) PO SCH (09:28)
[2020-07-07] MEDS: TAMSULOSIN HCL 0.4 MG CAP PO SCH (09:28)
[2020-07-07] MEDS: ZINC SULFATE 220 MG CAPSULE (FP) PO SCH ×3 (09:29→21:44)
[2020-07-07] MEDS: ASCORBIC ACID 500 MG TABLET (FP) PO SCH ×3 (09:29→21:44)
[2020-07-07] MEDS: MEMANTINE HCL 5 MG TABLET (UD) PO SCH ×3 (09:29→21:44)
[2020-07-07] MEDS: MULTIVITAMINS (DAILY MVI) TABLET (FP) PO SCH (09:29)
[2020-07-07] MEDS: VALSARTAN 40 MG TABLET PO SCH (09:29)
[2020-07-07] MEDS: ASPIRIN 81 MG CHEWABLE TABLETS PO SCH (09:29)
[2020-07-07] MEDS: MAGNESIUM OXIDE 400 MG TABLET (FP) PO SCH ×3 (09:29→21:44)
[2020-07-07] MEDS: VANCOMYCIN 1 GRAM (PRE-DOCKED) 1,000 MG/250 ML BAG IVPB SCH (15:06)
[2020-07-07] MEDS ORDERED: SODIUM CHLORIDE 1,000 ML IV SCH (15:15)
[2020-07-07] MEDS: SODIUM CHLORIDE 1,000 ML IV SCH (15:48)
[2020-07-07 17:13] LABS: EPI CELLS 4 /uL (0-25.1); HYALINE CASTS 0 /uL (0-3.1); URINE APPEARANCE CLEAR; URINE BACTERIA 12 /uL (0-1359); URINE BILIRUBIN NEGATIVE (NEGATIVE); URINE COLOR DK YELLOW; URINE GLUCOSE (UA) NEGATIVE (NEGATIVE); URINE KETONE TRACE (NEGATIVE); URINE LEUK ESTERASE NEGATIVE (NEGATIVE); URINE NITRITE NEGATIVE (NEGATIVE); URINE PROTEIN 1+ (NEGATIVE); URINE RBC 11 /uL (0-23.9); URINE WBC 20 /uL (0-25.8)
[2020-07-07] MEDS ORDERED: PT OWN MED DRAWER 7, Y5N ONE (21:15)
[2020-07-07] MEDS: FAMOTIDINE 10 MG TABLET PO SCH ×2 (21:27→21:44)
[2020-07-07] MEDS: ATORVASTATIN CA 10 MG TABLET (FP) PO SCH ×2 (21:28→21:44)
[2020-07-07] MEDS: DOCUSATE SODIUM 100 MG CAPSULE (FP) PO SCH ×2 (21:28→21:44)
[2020-07-07] MEDS: MELATONIN 1 MG TABLET PO SCH ×2 (21:28→21:44)
[2020-07-07] MEDS ORDERED: INSULIN (NOVOLOG) ASPART 100 UNITS/ML 10ML VIAL ONE (21:29)
[2020-07-08] MEDS: AMPICILLIN NA/SULBACTAM NA 1.5 GM in SODIUM CHLORIDE 100 ML IVPB SCH ×4 (02:54→21:43)
[2020-07-08] MEDS: valACYclovir HCL 500 MG TABLET (FP) PO SCH ×4 (05:45→22:26)
[2020-07-08] MEDS: INSULIN SLIDING SCALE (NOVOLOG) 1 VIAL SQ SCH ×4 (06:05→22:26)
[2020-07-08 07:34] LABS: BASO % 0.5 % (0-2.0); EOS % 5.4 % (0-4.5); HEMATOCRIT 25.2 % (35.4-49); HEMOGLOBIN 8.7 GM/dL (11.7-16.9); LYMPH % 40.4 % (8-40); MCH 31.7 pg (25.7-33.7); MCHC 34.5 g/dl (32.0-35.9); MEAN PLT VOLUME 7.6 fl (7.5-11.1); MONO % 10.3 % (3.8-10.2); NEUT % 43.4 % (42.8-82.8); PLATELET COUNT 176 K/MM3 (134-434); RBC 2.74 M/mm3 (4.00-5.60); WHITE BLOOD COUNT 2.9 K/mm3 (4.0-10.0)
[2020-07-08] MEDS ORDERED: SODIUM CHLORIDE 100 ML IVPB ONE ×3 (08:51→21:32)
[2020-07-08] MEDS ORDERED: AMPICILLIN NA/SULBACTAM NA 1.5 GM VIAL ONE ×3 (08:51→21:32)
[2020-07-08] MEDS ORDERED: PT OWN MED DRAWER 7, Y5N ONE ×2 (08:51→21:32)
[2020-07-08] MEDS: AMINO ACIDS/PROTEIN HYDROLYS 30 ML LIQUID.PKT PO SCH ×3 (08:53→17:39)
[2020-07-08] MEDS: ZINC SULFATE 220 MG CAPSULE (FP) PO SCH ×2 (09:03→21:40)
[2020-07-08] MEDS: MULTIVITAMINS (DAILY MVI) TABLET (FP) PO SCH (09:03)
[2020-07-08] MEDS: ASCORBIC ACID 500 MG TABLET (FP) PO SCH ×3 (09:03→22:27)
[2020-07-08] MEDS: CLOPIDOGREL BISULFATE 75 MG TABLET (FP) PO SCH (09:03)
[2020-07-08] MEDS: VALSARTAN 40 MG TABLET PO SCH (09:03)
[2020-07-08] MEDS: MAGNESIUM OXIDE 400 MG TABLET (FP) PO SCH ×2 (09:03→21:40)
[2020-07-08] MEDS: azaTHIOprine 50 MG TABLET PO SCH (09:03)
[2020-07-08] MEDS: MEMANTINE HCL 5 MG TABLET (UD) PO SCH ×2 (09:03→21:40)
[2020-07-08] MEDS: ENOXAPARIN NA (PORCINE) 40 MG/0.4 ML DISP.SYRIN SQ SCH (09:03)
[2020-07-08] MEDS: SODIUM BICARBONATE 650 MG TABLET PO SCH ×2 (09:03→22:26)
[2020-07-08] MEDS: CINACALCET HCL 30 MG TAB (FP) PO SCH (09:03)
[2020-07-08] MEDS: ASPIRIN 81 MG CHEWABLE TABLETS PO SCH (09:03)
[2020-07-08] MEDS: TAMSULOSIN HCL 0.4 MG CAP PO SCH (09:03)
[2020-07-08] MEDS: FINASTERIDE 5 MG TABLET (FP) PO SCH (09:04)
[2020-07-08 10:46] LABS: CALCIUM 8.3 mg/dL (8.5-10.1)
[2020-07-08 10:47] LABS: BLOOD UREA NITROGEN 12.4 mg/dL (7-18)
[2020-07-08 10:50] LABS: CREATININE 0.8 mg/dL (0.55-1.3)
[2020-07-08] MEDS: VANCOMYCIN 1 GRAM (PRE-DOCKED) 1,000 MG/250 ML BAG IVPB SCH (16:42)
[2020-07-08] MEDS: POLYETHYLENE GLYCOL 3350 119 GM BTL PO SCH (17:39)
[2020-07-08] MEDS: SODIUM CHLORIDE 1,000 ML IV SCH (17:39)
[2020-07-08] MEDS ORDERED: INSULIN (NOVOLOG) ASPART 100 UNITS/ML 10ML VIAL ONE (21:31)
[2020-07-08] MEDS: ATORVASTATIN CA 10 MG TABLET (FP) PO SCH ×2 (21:40→22:27)
[2020-07-08] MEDS: DOCUSATE SODIUM 100 MG CAPSULE (FP) PO SCH ×2 (21:40→22:27)
[2020-07-08] MEDS: MELATONIN 1 MG TABLET PO SCH ×2 (21:40→22:27)
[2020-07-08] MEDS: FAMOTIDINE 10 MG TABLET PO SCH ×2 (21:40→22:27)
[2020-07-08] MEDS: SENNOSIDES 8.8 MG/5 ML BULK BOTTLE PO SCH ×2 (21:41→22:27)
[2020-07-08] MEDS ORDERED: ACETAMINOPHEN 1000 MG/100 ML VIAL (NON FORMULARY) IVPB PRN (21:59)
[2020-07-09] MEDS ORDERED: AMPICILLIN NA/SULBACTAM NA 1.5 GM VIAL ONE ×4 (02:12→19:55)
[2020-07-09] MEDS ORDERED: SODIUM CHLORIDE 100 ML IVPB ONE ×4 (02:13→19:55)
[2020-07-09] MEDS: AMPICILLIN NA/SULBACTAM NA 1.5 GM in SODIUM CHLORIDE 100 ML IVPB SCH ×4 (02:25→20:02)
[2020-07-09] MEDS: valACYclovir HCL 500 MG TABLET (FP) PO SCH ×3 (06:33→21:53)
[2020-07-09] MEDS: INSULIN SLIDING SCALE (NOVOLOG) 1 VIAL SQ SCH ×4 (06:39→22:13)
[2020-07-09 08:01] LABS: BASO % 0.5 % (0-2.0); EOS % 6.1 % (0-4.5); HEMATOCRIT 26.6 % (35.4-49); HEMOGLOBIN 8.9 GM/dL (11.7-16.9); LYMPH % 38.3 % (8-40); MCH 31.1 pg (25.7-33.7); MCHC 33.3 g/dl (32.0-35.9); MEAN CELL VOLUME 93.3 fl (80-96); MEAN PLT VOLUME 7.9 fl (7.5-11.1); MONO % 14.2 % (3.8-10.2); NEUT % 40.9 % (42.8-82.8); PLATELET COUNT 187 K/MM3 (134-434); RBC 2.85 M/mm3 (4.00-5.60); RDW 21.9 % (11.9-15.9)
[2020-07-09 08:17] LABS: BLOOD UREA NITROGEN 11.9 mg/dL (7-18); CALCIUM 8.5 mg/dL (8.5-10.1)
[2020-07-09 08:18] LABS: MAGNESIUM 1.7 mg/dL (1.8-2.4)
[2020-07-09 08:21] LABS: CREATININE 0.8 mg/dL (0.55-1.3); PHOSPHOROUS 2.2 mg/dL (2.5-4.9)
[2020-07-09] MEDS ORDERED: NAPH,MB-DB/K PH,MBDB POWDER PACKET PO ONE (08:56)
[2020-07-09] MEDS: TAMSULOSIN HCL 0.4 MG CAP PO SCH (09:33)
[2020-07-09] MEDS: ASCORBIC ACID 500 MG TABLET (FP) PO SCH ×2 (09:33→21:54)
[2020-07-09] MEDS: ENOXAPARIN NA (PORCINE) 40 MG/0.4 ML DISP.SYRIN SQ SCH (09:33)
[2020-07-09] MEDS: CINACALCET HCL 30 MG TAB (FP) PO SCH (09:33)
[2020-07-09] MEDS: MEMANTINE HCL 5 MG TABLET (UD) PO SCH ×2 (09:33→21:54)
[2020-07-09] MEDS: SODIUM BICARBONATE 650 MG TABLET PO SCH ×2 (09:33→21:54)
[2020-07-09] MEDS: MULTIVITAMINS (DAILY MVI) TABLET (FP) PO SCH (09:33)
[2020-07-09] MEDS: MAGNESIUM OXIDE 400 MG TABLET (FP) PO SCH ×2 (09:34→21:54)
[2020-07-09] MEDS: AMINO ACIDS/PROTEIN HYDROLYS 30 ML LIQUID.PKT PO SCH ×2 (09:34→18:37)
[2020-07-09] MEDS: ASPIRIN 81 MG CHEWABLE TABLETS PO SCH (09:34)
[2020-07-09] MEDS: CLOPIDOGREL BISULFATE 75 MG TABLET (FP) PO SCH (09:34)
[2020-07-09] MEDS: FINASTERIDE 5 MG TABLET (FP) PO SCH (09:34)
[2020-07-09] MEDS: ZINC SULFATE 220 MG CAPSULE (FP) PO SCH ×2 (09:34→21:54)
[2020-07-09] MEDS: POLYETHYLENE GLYCOL 3350 119 GM BTL PO SCH (09:35)
[2020-07-09] MEDS ORDERED: PT OWN MED DRAWER 7, Y5N ONE ×2 (09:40→21:26)
[2020-07-09] MEDS: azaTHIOprine 50 MG TABLET PO SCH (09:41)
[2020-07-09] MEDS: VALSARTAN 40 MG TABLET PO SCH (09:48)
[2020-07-09 10:53] LABS: ANISOCYTOSIS 1+; MACROCYTOSIS 1+; OVALOCYTE 1+; PLATELET ESTIMATE NORMAL
[2020-07-09] MEDS: CLINDAMYCIN HCL 150 MG CAPSULE (FP) PO SCH ×2 (14:02→18:37)
[2020-07-09] MEDS: SODIUM CHLORIDE 1,000 ML IV SCH ×2 (18:39→20:10)
[2020-07-09] MEDS: ATORVASTATIN CA 10 MG TABLET (FP) PO SCH (21:54)
[2020-07-09] MEDS: FAMOTIDINE 10 MG TABLET PO SCH (21:54)
[2020-07-09] MEDS: DOCUSATE SODIUM 100 MG CAPSULE (FP) PO SCH (21:54)
[2020-07-09] MEDS ORDERED: INSULIN (NOVOLOG) ASPART 100 UNITS/ML 10ML VIAL ONE (21:55)
[2020-07-09] MEDS: MELATONIN 1 MG TABLET PO SCH (21:55)
[2020-07-09] MEDS: SENNOSIDES 8.8 MG/5 ML BULK BOTTLE PO SCH (22:14)
[2020-07-10] MEDS: CLINDAMYCIN HCL 150 MG CAPSULE (FP) PO SCH ×5 (00:01→23:03)
[2020-07-10] MEDS: ACETAMINOPHEN 325 MG TABLET (FP) PO PRN ×2 (00:01→21:32)
[2020-07-10] MEDS ORDERED: AMPICILLIN NA/SULBACTAM NA 1.5 GM VIAL ONE ×4 (02:00→20:02)
[2020-07-10] MEDS ORDERED: SODIUM CHLORIDE 100 ML IVPB ONE ×4 (02:00→20:03)
[2020-07-10] MEDS: AMPICILLIN NA/SULBACTAM NA 1.5 GM in SODIUM CHLORIDE 100 ML IVPB SCH ×4 (02:03→20:05)
[2020-07-10] MEDS: valACYclovir HCL 500 MG TABLET (FP) PO SCH ×3 (06:59→21:28)
[2020-07-10] MEDS: INSULIN SLIDING SCALE (NOVOLOG) 1 VIAL SQ SCH ×4 (07:03→21:44)
[2020-07-10] MEDS ORDERED: BISACODYL 10 MG SUPP.RECT PR PRN (09:10)
[2020-07-10] MEDS ORDERED: BISACODYL 5 MG TABLET.DR (FP) PO ONE (09:30)
[2020-07-10] MEDS: MULTIVITAMINS (DAILY MVI) TABLET (FP) PO SCH (10:43)
[2020-07-10] MEDS: ZINC SULFATE 220 MG CAPSULE (FP) PO SCH ×2 (10:43→21:28)
[2020-07-10] MEDS: MAGNESIUM OXIDE 400 MG TABLET (FP) PO SCH ×2 (10:43→21:28)
[2020-07-10] MEDS: ENOXAPARIN NA (PORCINE) 40 MG/0.4 ML DISP.SYRIN SQ SCH (10:43)
[2020-07-10] MEDS: ASPIRIN 81 MG CHEWABLE TABLETS PO SCH (10:43)
[2020-07-10] MEDS: FINASTERIDE 5 MG TABLET (FP) PO SCH (10:43)
[2020-07-10] MEDS: AMINO ACIDS/PROTEIN HYDROLYS 30 ML LIQUID.PKT PO SCH ×2 (10:43→17:49)
[2020-07-10] MEDS: TAMSULOSIN HCL 0.4 MG CAP PO SCH (10:43)
[2020-07-10] MEDS: azaTHIOprine 50 MG TABLET PO SCH (10:43)
[2020-07-10] MEDS: MEMANTINE HCL 5 MG TABLET (UD) PO SCH ×2 (10:44→21:28)
[2020-07-10] MEDS: ASCORBIC ACID 500 MG TABLET (FP) PO SCH ×2 (10:44→21:28)
[2020-07-10] MEDS: VALSARTAN 40 MG TABLET PO SCH ×2 (10:44→11:32)
[2020-07-10] MEDS: SODIUM BICARBONATE 650 MG TABLET PO SCH ×2 (10:44→21:28)
[2020-07-10] MEDS: CINACALCET HCL 30 MG TAB (FP) PO SCH (10:44)
[2020-07-10] MEDS: POLYETHYLENE GLYCOL 3350 119 GM BTL PO SCH (10:44)
[2020-07-10] MEDS: CLOPIDOGREL BISULFATE 75 MG TABLET (FP) PO SCH (10:44)
[2020-07-10 11:09] LABS: BASO % 0.3 % (0-2.0); EOS % 5.6 % (0-4.5); HEMATOCRIT 24.7 % (35.4-49); HEMOGLOBIN 8.2 GM/dL (11.7-16.9); LYMPH % 35.1 % (8-40); MCHC 33.2 g/dl (32.0-35.9); MEAN CELL VOLUME 93.3 fl (80-96); MEAN PLT VOLUME 7.2 fl (7.5-11.1); MONO % 11.8 % (3.8-10.2); NEUT % 47.2 % (42.8-82.8); PLATELET COUNT 209 K/MM3 (134-434); RBC 2.65 M/mm3 (4.00-5.60); RDW 21.8 % (11.9-15.9); WHITE BLOOD COUNT 2.9 K/mm3 (4.0-10.0)
[2020-07-10 11:28] LABS: BLOOD UREA NITROGEN 15.3 mg/dL (7-18); CALCIUM 8.5 mg/dL (8.5-10.1)
[2020-07-10 11:29] LABS: ALBUMIN 2.5 g/dl (3.4-5.0); MAGNESIUM 1.6 mg/dL (1.8-2.4)
[2020-07-10 11:32] LABS: CREATININE 0.8 mg/dL (0.55-1.3); PHOSPHOROUS 2.4 mg/dL (2.5-4.9)
[2020-07-10 11:33] LABS: BILIRUBIN,TOTAL 0.6 mg/dL (0.2-1); TOT PROT 5.6 g/dl (6.4-8.2)
[2020-07-10] MEDS ORDERED: INSULIN (NOVOLOG) ASPART 100 UNITS/ML 10ML VIAL ONE (12:51)
[2020-07-10] MEDS ORDERED: MAGNESIUM SULF 50% (8.12 MEQ/2 ML-1 GM VIAL) IVPB ONE (15:28)
[2020-07-10] MEDS ORDERED: NAPH,MB-DB/K PH,MBDB POWDER PACKET PO ONE (15:29)
[2020-07-10 17:27] LABS: PH,URINE 6.5 (5.0-8.0); URINE APPEARANCE CLEAR; URINE BILIRUBIN NEGATIVE (NEGATIVE); URINE COLOR YELLOW; URINE GLUCOSE (UA) NEGATIVE (NEGATIVE); URINE KETONE NEGATIVE (NEGATIVE); URINE LEUK ESTERASE NEGATIVE (NEGATIVE); URINE NITRITE NEGATIVE (NEGATIVE); URINE PROTEIN NEGATIVE (NEGATIVE)
[2020-07-10] MEDS: SODIUM CHLORIDE 1,000 ML IV SCH (17:48)
[2020-07-10] MEDS: DOCUSATE SODIUM 100 MG CAPSULE (FP) PO SCH (21:27)
[2020-07-10] MEDS: FAMOTIDINE 10 MG TABLET PO SCH (21:28)
[2020-07-10] MEDS: ATORVASTATIN CA 10 MG TABLET (FP) PO SCH (21:28)
[2020-07-10] MEDS: SENNOSIDES 8.8 MG/5 ML BULK BOTTLE PO SCH (21:28)
[2020-07-10] MEDS: MELATONIN 1 MG TABLET PO SCH (21:29)
[2020-07-11] MEDS ORDERED: AMPICILLIN NA/SULBACTAM NA 1.5 GM VIAL ONE ×3 (02:01→09:14)
[2020-07-11] MEDS ORDERED: SODIUM CHLORIDE 100 ML IVPB ONE ×2 (02:01→09:07)
[2020-07-11] MEDS: AMPICILLIN NA/SULBACTAM NA 1.5 GM in SODIUM CHLORIDE 100 ML IVPB SCH ×2 (02:02→09:22)
[2020-07-11] MEDS: CLINDAMYCIN HCL 150 MG CAPSULE (FP) PO SCH ×4 (05:55→23:14)
[2020-07-11] MEDS: valACYclovir HCL 500 MG TABLET (FP) PO SCH ×3 (05:56→21:02)
[2020-07-11] MEDS: INSULIN SLIDING SCALE (NOVOLOG) 1 VIAL SQ SCH ×4 (06:50→21:13)
[2020-07-11 07:17] LABS: BASO % 0.5 % (0-2.0); EOS % 5.3 % (0-4.5); HEMATOCRIT 26.1 % (35.4-49); HEMOGLOBIN 8.7 GM/dL (11.7-16.9); LYMPH % 45.8 % (8-40); MCHC 33.4 g/dl (32.0-35.9); MONO % 14.8 % (3.8-10.2); NEUT % 33.6 % (42.8-82.8); PLATELET COUNT 238 K/MM3 (134-434); RDW 21.8 % (11.9-15.9); WHITE BLOOD COUNT 3.1 K/mm3 (4.0-10.0)
[2020-07-11 07:44] LABS: CALCIUM 8.8 mg/dL (8.5-10.1)
[2020-07-11 07:45] LABS: BLOOD UREA NITROGEN 17.4 mg/dL (7-18)
[2020-07-11 07:48] LABS: CREATININE 0.8 mg/dL (0.55-1.3)
[2020-07-11] MEDS: AMINO ACIDS/PROTEIN HYDROLYS 30 ML LIQUID.PKT PO SCH ×2 (09:21→18:18)
[2020-07-11] MEDS: ASPIRIN 81 MG CHEWABLE TABLETS PO SCH (09:21)
[2020-07-11] MEDS: azaTHIOprine 50 MG TABLET PO SCH (09:22)
[2020-07-11] MEDS: MAGNESIUM OXIDE 400 MG TABLET (FP) PO SCH ×2 (09:22→21:03)
[2020-07-11] MEDS: ZINC SULFATE 220 MG CAPSULE (FP) PO SCH ×2 (09:22→21:03)
[2020-07-11] MEDS: ASCORBIC ACID 500 MG TABLET (FP) PO SCH ×2 (09:22→21:03)
[2020-07-11] MEDS: CINACALCET HCL 30 MG TAB (FP) PO SCH (09:22)
[2020-07-11] MEDS: SODIUM BICARBONATE 650 MG TABLET PO SCH ×2 (09:22→21:03)
[2020-07-11] MEDS: MEMANTINE HCL 5 MG TABLET (UD) PO SCH ×2 (09:22→21:03)
[2020-07-11] MEDS: TAMSULOSIN HCL 0.4 MG CAP PO SCH (09:22)
[2020-07-11] MEDS: FINASTERIDE 5 MG TABLET (FP) PO SCH (09:22)
[2020-07-11] MEDS: MULTIVITAMINS (DAILY MVI) TABLET (FP) PO SCH (09:22)
[2020-07-11] MEDS: CLOPIDOGREL BISULFATE 75 MG TABLET (FP) PO SCH (09:22)
[2020-07-11] MEDS: VALSARTAN 40 MG TABLET PO SCH (09:23)
[2020-07-11] MEDS: ENOXAPARIN NA (PORCINE) 40 MG/0.4 ML DISP.SYRIN SQ SCH (09:23)
[2020-07-11] MEDS: POLYETHYLENE GLYCOL 3350 119 GM BTL PO SCH (09:23)
[2020-07-11] MEDS ORDERED: MAG HYDROX/AL HYDROX/SIMETH 30 ML UNIT-DOSE CUP PO PRN (12:10)
[2020-07-11] MEDS ORDERED: PIPERACILLIN/TAZOBACTAM 3.375 GM VIAL IVPB ONE (16:27)
[2020-07-11] MEDS ORDERED: DEXTROSE 5%-WATER - 50 ML IVPB ONE (16:27)
[2020-07-11] MEDS: SODIUM CHLORIDE 1,000 ML IV SCH (18:17)
[2020-07-11] MEDS: PIPERACILLIN/TAZOB 3.375 GM 3.375 GM in DEXTROSE 5%-WATER - 50 ML IVPB SCH (18:18)
[2020-07-11] MEDS: FAMOTIDINE 10 MG TABLET PO SCH (21:02)
[2020-07-11] MEDS: MELATONIN 1 MG TABLET PO SCH (21:03)
[2020-07-11] MEDS: DOCUSATE SODIUM 100 MG CAPSULE (FP) PO SCH (21:03)
[2020-07-11] MEDS: ATORVASTATIN CA 10 MG TABLET (FP) PO SCH (21:03)
[2020-07-11] MEDS: SENNOSIDES 8.8 MG/5 ML BULK BOTTLE PO SCH (21:04)
[2020-07-12] MEDS ORDERED: PIPERACILLIN/TAZOBACTAM 3.375 GM VIAL IVPB ONE ×3 (01:04→16:09)
[2020-07-12] MEDS ORDERED: DEXTROSE 5%-WATER - 50 ML IVPB ONE ×3 (01:04→16:10)
[2020-07-12] MEDS: PIPERACILLIN/TAZOB 3.375 GM 3.375 GM in DEXTROSE 5%-WATER - 50 ML IVPB SCH ×3 (01:21→17:12)
[2020-07-12] MEDS: CLINDAMYCIN HCL 150 MG CAPSULE (FP) PO SCH ×3 (06:20→17:12)
[2020-07-12] MEDS: valACYclovir HCL 500 MG TABLET (FP) PO SCH ×3 (06:20→21:45)
[2020-07-12] MEDS: INSULIN SLIDING SCALE (NOVOLOG) 1 VIAL SQ SCH ×4 (06:20→22:11)
[2020-07-12 07:48] LABS: BASO % 0.5 % (0-2.0); EOS % 5.1 % (0-4.5); HEMATOCRIT 24.2 % (35.4-49); HEMOGLOBIN 8.4 GM/dL (11.7-16.9); LYMPH % 44.4 % (8-40); MCHC 34.5 g/dl (32.0-35.9); MEAN CELL VOLUME 92.6 fl (80-96); MEAN PLT VOLUME 6.8 fl (7.5-11.1); MONO % 16.6 % (3.8-10.2); NEUT % 33.4 % (42.8-82.8); PLATELET COUNT 250 K/MM3 (134-434); RBC 2.61 M/mm3 (4.00-5.60); RDW 20.7 % (11.9-15.9); WHITE BLOOD COUNT 3.8 K/mm3 (4.0-10.0)
[2020-07-12 08:08] LABS: BLOOD UREA NITROGEN 11.4 mg/dL (7-18); CALCIUM 8.8 mg/dL (8.5-10.1); MAGNESIUM 1.8 mg/dL (1.8-2.4)
[2020-07-12 08:11] LABS: CREATININE 0.9 mg/dL (0.55-1.3)
[2020-07-12] MEDS: ENOXAPARIN NA (PORCINE) 40 MG/0.4 ML DISP.SYRIN SQ SCH (09:21)
[2020-07-12] MEDS: FINASTERIDE 5 MG TABLET (FP) PO SCH (09:21)
[2020-07-12] MEDS: ASCORBIC ACID 500 MG TABLET (FP) PO SCH ×2 (09:21→21:46)
[2020-07-12] MEDS: MAGNESIUM OXIDE 400 MG TABLET (FP) PO SCH ×2 (09:21→21:46)
[2020-07-12] MEDS: AMINO ACIDS/PROTEIN HYDROLYS 30 ML LIQUID.PKT PO SCH ×2 (09:21→17:12)
[2020-07-12] MEDS: MULTIVITAMINS (DAILY MVI) TABLET (FP) PO SCH (09:21)
[2020-07-12] MEDS: VALSARTAN 40 MG TABLET PO SCH (09:21)
[2020-07-12] MEDS: ZINC SULFATE 220 MG CAPSULE (FP) PO SCH ×2 (09:22→21:46)
[2020-07-12] MEDS: TAMSULOSIN HCL 0.4 MG CAP PO SCH (09:22)
[2020-07-12] MEDS: MEMANTINE HCL 5 MG TABLET (UD) PO SCH ×2 (09:22→21:46)
[2020-07-12] MEDS: azaTHIOprine 50 MG TABLET PO SCH (09:22)
[2020-07-12] MEDS: POLYETHYLENE GLYCOL 3350 119 GM BTL PO SCH (09:22)
[2020-07-12] MEDS: ASPIRIN 81 MG CHEWABLE TABLETS PO SCH (09:22)
[2020-07-12] MEDS: SODIUM BICARBONATE 650 MG TABLET PO SCH ×2 (09:22→21:46)
[2020-07-12] MEDS: CLOPIDOGREL BISULFATE 75 MG TABLET (FP) PO SCH (09:22)
[2020-07-12] MEDS: CINACALCET HCL 30 MG TAB (FP) PO SCH (09:22)
[2020-07-12] MEDS: SODIUM CHLORIDE 1,000 ML IV SCH (17:12)
[2020-07-12] MEDS: FAMOTIDINE 10 MG TABLET PO SCH (21:45)
[2020-07-12] MEDS: MELATONIN 1 MG TABLET PO SCH (21:46)
[2020-07-12] MEDS: ATORVASTATIN CA 10 MG TABLET (FP) PO SCH (21:46)
[2020-07-12] MEDS: DOCUSATE SODIUM 100 MG CAPSULE (FP) PO SCH (21:46)
[2020-07-12] MEDS: ACETAMINOPHEN 325 MG TABLET (FP) PO PRN (22:09)
[2020-07-13] MEDS: CLINDAMYCIN HCL 150 MG CAPSULE (FP) PO SCH ×5 (01:00→23:01)
[2020-07-13] MEDS: SENNOSIDES 8.8 MG/5 ML BULK BOTTLE PO SCH ×2 (01:00→21:03)
[2020-07-13] MEDS ORDERED: PIPERACILLIN/TAZOBACTAM 3.375 GM VIAL IVPB ONE ×3 (01:02→17:09)
[2020-07-13] MEDS ORDERED: DEXTROSE 5%-WATER - 50 ML IVPB ONE ×3 (01:03→17:09)
[2020-07-13] MEDS: PIPERACILLIN/TAZOB 3.375 GM 3.375 GM in DEXTROSE 5%-WATER - 50 ML IVPB SCH ×3 (01:03→17:13)
[2020-07-13] MEDS: valACYclovir HCL 500 MG TABLET (FP) PO SCH ×2 (05:49→14:33)
[2020-07-13] MEDS: INSULIN SLIDING SCALE (NOVOLOG) 1 VIAL SQ SCH ×4 (06:10→21:01)
[2020-07-13 07:23] LABS: BASO % 0.6 % (0-2.0); EOS % 6.1 % (0-4.5); HEMATOCRIT 25.2 % (35.4-49); HEMOGLOBIN 8.5 GM/dL (11.7-16.9); LYMPH % 45.9 % (8-40); MCH 31.5 pg (25.7-33.7); MCHC 33.7 g/dl (32.0-35.9); MEAN CELL VOLUME 93.3 fl (80-96); MEAN PLT VOLUME 6.9 fl (7.5-11.1); MONO % 20.3 % (3.8-10.2); NEUT % 27.1 % (42.8-82.8); PLATELET COUNT 268 K/MM3 (134-434); RDW 21.1 % (11.9-15.9); WHITE BLOOD COUNT 2.9 K/mm3 (4.0-10.0)
[2020-07-13 07:53] LABS: ALBUMIN 2.4 g/dl (3.4-5.0)
[2020-07-13 07:54] LABS: BLOOD UREA NITROGEN 10.9 mg/dL (7-18); MAGNESIUM 1.9 mg/dL (1.8-2.4)
[2020-07-13 07:57] LABS: CREATININE 0.9 mg/dL (0.55-1.3); PHOSPHOROUS 2.7 mg/dL (2.5-4.9)
[2020-07-13 07:59] LABS: TOT PROT 6.1 g/dl (6.4-8.2)
[2020-07-13 08:01] LABS: BILIRUBIN,TOTAL 0.7 mg/dL (0.2-1)
[2020-07-13 10:30] LABS: ANISOCYTOSIS 1+; MACROCYTOSIS 1+; PLATELET ESTIMATE NORMAL
[2020-07-13] MEDS ORDERED: PT OWN MED DRAWER 7, Y5N ONE (11:24)
[2020-07-13] MEDS: SODIUM BICARBONATE 650 MG TABLET PO SCH ×2 (11:36→21:01)
[2020-07-13] MEDS: ASCORBIC ACID 500 MG TABLET (FP) PO SCH ×2 (11:36→21:01)
[2020-07-13] MEDS: MULTIVITAMINS (DAILY MVI) TABLET (FP) PO SCH (11:36)
[2020-07-13] MEDS: ASPIRIN 81 MG CHEWABLE TABLETS PO SCH (11:37)
[2020-07-13] MEDS: MAGNESIUM OXIDE 400 MG TABLET (FP) PO SCH ×2 (11:37→21:01)
[2020-07-13] MEDS: CLOPIDOGREL BISULFATE 75 MG TABLET (FP) PO SCH (11:37)
[2020-07-13] MEDS: VALSARTAN 40 MG TABLET PO SCH (11:37)
[2020-07-13] MEDS: ZINC SULFATE 220 MG CAPSULE (FP) PO SCH ×2 (11:37→21:01)
[2020-07-13] MEDS: TAMSULOSIN HCL 0.4 MG CAP PO SCH (11:38)
[2020-07-13] MEDS: POLYETHYLENE GLYCOL 3350 119 GM BTL PO SCH (11:38)
[2020-07-13] MEDS: CINACALCET HCL 30 MG TAB (FP) PO SCH (11:38)
[2020-07-13] MEDS: MEMANTINE HCL 5 MG TABLET (UD) PO SCH ×2 (11:38→21:02)
[2020-07-13] MEDS: FINASTERIDE 5 MG TABLET (FP) PO SCH (11:38)
[2020-07-13] MEDS: ENOXAPARIN NA (PORCINE) 40 MG/0.4 ML DISP.SYRIN SQ SCH (11:38)
[2020-07-13] MEDS: AMINO ACIDS/PROTEIN HYDROLYS 30 ML LIQUID.PKT PO SCH ×3 (11:39→16:38)
[2020-07-13] MEDS: azaTHIOprine 50 MG TABLET PO SCH (11:39)
[2020-07-13] MEDS: SODIUM CHLORIDE 1,000 ML IV SCH (17:36)
[2020-07-13] MEDS: MELATONIN 1 MG TABLET PO SCH (21:00)
[2020-07-13] MEDS: DOCUSATE SODIUM 100 MG CAPSULE (FP) PO SCH (21:01)
[2020-07-13] MEDS: ATORVASTATIN CA 10 MG TABLET (FP) PO SCH (21:01)
[2020-07-13] MEDS: FAMOTIDINE 10 MG TABLET PO SCH (21:01)
[2020-07-14] MEDS ORDERED: PIPERACILLIN/TAZOBACTAM 3.375 GM VIAL IVPB ONE ×3 (01:24→16:54)
[2020-07-14] MEDS ORDERED: DEXTROSE 5%-WATER - 50 ML IVPB ONE ×3 (01:24→16:54)
[2020-07-14] MEDS: PIPERACILLIN/TAZOB 3.375 GM 3.375 GM in DEXTROSE 5%-WATER - 50 ML IVPB SCH ×3 (01:35→17:01)
[2020-07-14] MEDS: CLINDAMYCIN HCL 150 MG CAPSULE (FP) PO SCH ×4 (05:41→23:16)
[2020-07-14] MEDS: INSULIN SLIDING SCALE (NOVOLOG) 1 VIAL SQ SCH ×4 (06:11→21:38)
[2020-07-14] MEDS ORDERED: PT OWN MED DRAWER 7, Y5N ONE (08:52)
[2020-07-14] MEDS: CLOPIDOGREL BISULFATE 75 MG TABLET (FP) PO SCH (09:04)
[2020-07-14] MEDS: MEMANTINE HCL 5 MG TABLET (UD) PO SCH ×2 (09:04→21:28)
[2020-07-14] MEDS: ASCORBIC ACID 500 MG TABLET (FP) PO SCH ×2 (09:04→21:28)
[2020-07-14] MEDS: AMINO ACIDS/PROTEIN HYDROLYS 30 ML LIQUID.PKT PO SCH ×2 (09:04→17:01)
[2020-07-14] MEDS: SODIUM BICARBONATE 650 MG TABLET PO SCH ×2 (09:04→21:28)
[2020-07-14] MEDS: MULTIVITAMINS (DAILY MVI) TABLET (FP) PO SCH (09:04)
[2020-07-14] MEDS: ASPIRIN 81 MG CHEWABLE TABLETS PO SCH (09:04)
[2020-07-14] MEDS: TAMSULOSIN HCL 0.4 MG CAP PO SCH (09:04)
[2020-07-14] MEDS: VALSARTAN 40 MG TABLET PO SCH (09:04)
[2020-07-14] MEDS: azaTHIOprine 50 MG TABLET PO SCH (09:05)
[2020-07-14] MEDS: ZINC SULFATE 220 MG CAPSULE (FP) PO SCH ×2 (09:05→21:27)
[2020-07-14] MEDS: ENOXAPARIN NA (PORCINE) 40 MG/0.4 ML DISP.SYRIN SQ SCH (09:05)
[2020-07-14] MEDS: MAGNESIUM OXIDE 400 MG TABLET (FP) PO SCH ×2 (09:05→21:28)
[2020-07-14] MEDS: POLYETHYLENE GLYCOL 3350 119 GM BTL PO SCH (09:06)
[2020-07-14] MEDS: CINACALCET HCL 30 MG TAB (FP) PO SCH (09:06)
[2020-07-14] MEDS: FINASTERIDE 5 MG TABLET (FP) PO SCH (09:06)
[2020-07-14 10:37] LABS: HEMATOCRIT 23.7 % (35.4-49); MCH 31.3 pg (25.7-33.7); MCHC 33.9 g/dl (32.0-35.9); MEAN CELL VOLUME 92.5 fl (80-96); MEAN PLT VOLUME 6.5 fl (7.5-11.1); PLATELET COUNT 282 K/MM3 (134-434); RBC 2.56 M/mm3 (4.00-5.60); RDW 20.7 % (11.9-15.9); WHITE BLOOD COUNT 3.1 K/mm3 (4.0-10.0)
[2020-07-14 11:28] LABS: ALBUMIN 2.2 g/dl (3.4-5.0); BILIRUBIN,TOTAL 0.4 mg/dL (0.2-1); BLOOD UREA NITROGEN 9.6 mg/dL (7-18); CALCIUM 8.6 mg/dL (8.5-10.1); CREATININE 0.9 mg/dL (0.55-1.3); TOT PROT 5.7 g/dl (6.4-8.2)
[2020-07-14] MEDS: SODIUM CHLORIDE 1,000 ML IV SCH ×2 (17:01→20:12)
[2020-07-14] MEDS: DOCUSATE SODIUM 100 MG CAPSULE (FP) PO SCH (21:27)
[2020-07-14] MEDS: MELATONIN 1 MG TABLET PO SCH (21:27)
[2020-07-14] MEDS: SENNOSIDES 8.8 MG/5 ML BULK BOTTLE PO SCH (21:27)
[2020-07-14] MEDS: FAMOTIDINE 10 MG TABLET PO SCH (21:28)
[2020-07-14] MEDS: ATORVASTATIN CA 10 MG TABLET (FP) PO SCH (21:28)
[2020-07-15] MEDS ORDERED: PIPERACILLIN/TAZOBACTAM 3.375 GM VIAL IVPB ONE ×2 (00:54→11:52)
[2020-07-15] MEDS ORDERED: DEXTROSE 5%-WATER - 50 ML IVPB ONE ×2 (00:54→11:53)
[2020-07-15] MEDS: PIPERACILLIN/TAZOB 3.375 GM 3.375 GM in DEXTROSE 5%-WATER - 50 ML IVPB SCH ×2 (01:15→12:05)
[2020-07-15] MEDS: CLINDAMYCIN HCL 150 MG CAPSULE (FP) PO SCH ×4 (05:39→23:11)
[2020-07-15] MEDS: INSULIN SLIDING SCALE (NOVOLOG) 1 VIAL SQ SCH ×4 (06:52→21:58)
[2020-07-15 07:36] LABS: BASO % 0.5 % (0-2.0); EOS % 5.3 % (0-4.5); HEMATOCRIT 25.2 % (35.4-49); HEMOGLOBIN 8.5 GM/dL (11.7-16.9); LYMPH % 49.4 % (8-40); MCH 31.5 pg (25.7-33.7); MCHC 33.7 g/dl (32.0-35.9); MEAN CELL VOLUME 93.5 fl (80-96); MEAN PLT VOLUME 6.7 fl (7.5-11.1); NEUT % 23.8 % (42.8-82.8); PLATELET COUNT 285 K/MM3 (134-434); RBC 2.69 M/mm3 (4.00-5.60); RDW 20.6 % (11.9-15.9); WHITE BLOOD COUNT 3.2 K/mm3 (4.0-10.0)
[2020-07-15 08:07] LABS: BLOOD UREA NITROGEN 12.3 mg/dL (7-18)
[2020-07-15 08:11] LABS: CREATININE 0.8 mg/dL (0.55-1.3); PHOSPHOROUS 2.7 mg/dL (2.5-4.9)
[2020-07-15] MEDS: AMINO ACIDS/PROTEIN HYDROLYS 30 ML LIQUID.PKT PO SCH ×2 (09:26→18:13)
[2020-07-15 10:29] LABS: ANISOCYTOSIS 1+; MACROCYTOSIS 1+; OVALOCYTE 1+; PLATELET ESTIMATE NORMAL
[2020-07-15] MEDS ORDERED: PT OWN MED DRAWER 7, Y5N ONE ×2 (11:52→21:42)
[2020-07-15] MEDS: SODIUM BICARBONATE 650 MG TABLET PO SCH ×2 (11:57→21:59)
[2020-07-15] MEDS: CINACALCET HCL 30 MG TAB (FP) PO SCH (11:57)
[2020-07-15] MEDS: MAGNESIUM OXIDE 400 MG TABLET (FP) PO SCH ×2 (11:57→21:59)
[2020-07-15] MEDS: TAMSULOSIN HCL 0.4 MG CAP PO SCH (11:57)
[2020-07-15] MEDS: VALSARTAN 40 MG TABLET PO SCH (11:58)
[2020-07-15] MEDS: MEMANTINE HCL 5 MG TABLET (UD) PO SCH ×2 (11:58→21:59)
[2020-07-15] MEDS: MULTIVITAMINS (DAILY MVI) TABLET (FP) PO SCH (11:58)
[2020-07-15] MEDS: CLOPIDOGREL BISULFATE 75 MG TABLET (FP) PO SCH (11:58)
[2020-07-15] MEDS: ASPIRIN 81 MG CHEWABLE TABLETS PO SCH (11:58)
[2020-07-15] MEDS: ZINC SULFATE 220 MG CAPSULE (FP) PO SCH ×2 (11:59→21:59)
[2020-07-15] MEDS: FINASTERIDE 5 MG TABLET (FP) PO SCH (11:59)
[2020-07-15] MEDS: ASCORBIC ACID 500 MG TABLET (FP) PO SCH ×2 (11:59→22:01)
[2020-07-15] MEDS: ENOXAPARIN NA (PORCINE) 40 MG/0.4 ML DISP.SYRIN SQ SCH ×2 (11:59→12:26)
[2020-07-15] MEDS: azaTHIOprine 50 MG TABLET PO SCH (12:00)
[2020-07-15] MEDS: POLYETHYLENE GLYCOL 3350 119 GM BTL PO SCH (12:01)
[2020-07-15] MEDS ORDERED: TAMSULOSIN HCL 0.4 MG CAP PO ONE (14:00)
[2020-07-15] MEDS: SODIUM CHLORIDE 1,000 ML IV SCH (19:00)
[2020-07-15] MEDS: SENNOSIDES 8.8 MG/5 ML BULK BOTTLE PO SCH (21:58)
[2020-07-15] MEDS: FAMOTIDINE 10 MG TABLET PO SCH (21:59)
[2020-07-15] MEDS: MELATONIN 1 MG TABLET PO SCH (21:59)
[2020-07-15] MEDS: DOCUSATE SODIUM 100 MG CAPSULE (FP) PO SCH (21:59)
[2020-07-15] MEDS: ATORVASTATIN CA 10 MG TABLET (FP) PO SCH (21:59)
[2020-07-16] MEDS: SODIUM CHLORIDE 1,000 ML IV SCH ×2 (01:09→16:22)
[2020-07-16] MEDS: CLINDAMYCIN HCL 150 MG CAPSULE (FP) PO SCH (06:14)
[2020-07-16] MEDS: INSULIN SLIDING SCALE (NOVOLOG) 1 VIAL SQ SCH ×4 (06:14→21:44)
[2020-07-16 07:36] LABS: BASO % 0.3 % (0-2.0); EOS % 5.2 % (0-4.5); HEMATOCRIT 23.3 % (35.4-49); HEMOGLOBIN 7.9 GM/dL (11.7-16.9); LYMPH % 54.5 % (8-40); MCH 31.7 pg (25.7-33.7); MCHC 34.1 g/dl (32.0-35.9); MEAN CELL VOLUME 93.1 fl (80-96); MEAN PLT VOLUME 6.6 fl (7.5-11.1); MONO % 19.9 % (3.8-10.2); NEUT % 20.1 % (42.8-82.8); PLATELET COUNT 307 K/MM3 (134-434); RDW 20.2 % (11.9-15.9); WHITE BLOOD COUNT 2.8 K/mm3 (4.0-10.0)
[2020-07-16] MEDS ORDERED: TAMSULOSIN HCL 0.4 MG CAP PO SCH (08:30)
[2020-07-16 08:32] LABS: CALCIUM 8.7 mg/dL (8.5-10.1)
[2020-07-16 08:33] LABS: BLOOD UREA NITROGEN 9.2 mg/dL (7-18)
[2020-07-16 08:36] LABS: CREATININE 0.7 mg/dL (0.55-1.3)
[2020-07-16] MEDS: azaTHIOprine 50 MG TABLET PO SCH (09:19)
[2020-07-16] MEDS: ZINC SULFATE 220 MG CAPSULE (FP) PO SCH ×2 (09:19→21:45)
[2020-07-16] MEDS: AMINO ACIDS/PROTEIN HYDROLYS 30 ML LIQUID.PKT PO SCH ×2 (09:19→16:39)
[2020-07-16] MEDS: CINACALCET HCL 30 MG TAB (FP) PO SCH (09:19)
[2020-07-16] MEDS: MAGNESIUM OXIDE 400 MG TABLET (FP) PO SCH ×2 (09:19→21:45)
[2020-07-16] MEDS: CLOPIDOGREL BISULFATE 75 MG TABLET (FP) PO SCH (09:19)
[2020-07-16] MEDS: FINASTERIDE 5 MG TABLET (FP) PO SCH (09:20)
[2020-07-16] MEDS: ASPIRIN 81 MG CHEWABLE TABLETS PO SCH (09:20)
[2020-07-16] MEDS: ASCORBIC ACID 500 MG TABLET (FP) PO SCH ×2 (09:20→21:45)
[2020-07-16] MEDS: MULTIVITAMINS (DAILY MVI) TABLET (FP) PO SCH (09:20)
[2020-07-16] MEDS: MEMANTINE HCL 5 MG TABLET (UD) PO SCH (09:20)
[2020-07-16] MEDS: POLYETHYLENE GLYCOL 3350 119 GM BTL PO SCH (09:21)
[2020-07-16] MEDS: VALSARTAN 40 MG TABLET PO SCH (09:21)
[2020-07-16] MEDS: ENOXAPARIN NA (PORCINE) 40 MG/0.4 ML DISP.SYRIN SQ SCH (09:21)
[2020-07-16] MEDS: SODIUM BICARBONATE 650 MG TABLET PO SCH ×2 (09:22→21:45)
[2020-07-16 10:49] LABS: ANISOCYTOSIS 1+
[2020-07-16 10:50] LABS: PLATELET ESTIMATE ADEQUATE; SMUDGE CELLS 4.8
[2020-07-16] MEDS: LACTULOSE 20 GM/30 ML UDC (FOR ORAL USE ONLY) PO SCH (16:17)
[2020-07-16] MEDS ORDERED: PT OWN MED DRAWER 7, Y5N ONE (21:38)
[2020-07-16] MEDS: SENNOSIDES 8.8 MG/5 ML BULK BOTTLE PO SCH (21:45)
[2020-07-16] MEDS: MELATONIN 1 MG TABLET PO SCH (21:45)
[2020-07-16] MEDS: FAMOTIDINE 10 MG TABLET PO SCH (21:45)
[2020-07-16] MEDS: ATORVASTATIN CA 10 MG TABLET (FP) PO SCH (21:45)
[2020-07-16] MEDS: DOCUSATE SODIUM 100 MG CAPSULE (FP) PO SCH (21:45)
[2020-07-17] MEDS: SODIUM CHLORIDE 1,000 ML IV SCH ×2 (04:43→15:11)
[2020-07-17] MEDS: INSULIN SLIDING SCALE (NOVOLOG) 1 VIAL SQ SCH ×3 (06:35→17:25)
[2020-07-17 07:32] LABS: BASO % 0.4 % (0-2.0); EOS % 4.4 % (0-4.5); HEMATOCRIT 23.9 % (35.4-49); HEMOGLOBIN 8.2 GM/dL (11.7-16.9); LYMPH % 49.6 % (8-40); MCH 31.8 pg (25.7-33.7); MCHC 34.3 g/dl (32.0-35.9); MEAN CELL VOLUME 92.9 fl (80-96); MEAN PLT VOLUME 6.4 fl (7.5-11.1); MONO % 20.6 % (3.8-10.2); PLATELET COUNT 303 K/MM3 (134-434); RBC 2.58 M/mm3 (4.00-5.60); RDW 20.6 % (11.9-15.9); WHITE BLOOD COUNT 2.9 K/mm3 (4.0-10.0)
[2020-07-17 08:23] LABS: BLOOD UREA NITROGEN 8.4 mg/dL (7-18); CALCIUM 9.1 mg/dL (8.5-10.1)
[2020-07-17 08:27] LABS: CREATININE 0.7 mg/dL (0.55-1.3)
[2020-07-17] MEDS ORDERED: TAMSULOSIN HCL 0.4 MG CAP PO SCH (08:30)
[2020-07-17] MEDS: ASPIRIN 81 MG CHEWABLE TABLETS PO SCH (09:46)
[2020-07-17] MEDS: ASCORBIC ACID 500 MG TABLET (FP) PO SCH ×2 (09:46→21:05)
[2020-07-17] MEDS: MULTIVITAMINS (DAILY MVI) TABLET (FP) PO SCH (09:46)
[2020-07-17] MEDS: ZINC SULFATE 220 MG CAPSULE (FP) PO SCH ×2 (09:46→21:06)
[2020-07-17] MEDS: MAGNESIUM OXIDE 400 MG TABLET (FP) PO SCH ×2 (09:47→21:05)
[2020-07-17] MEDS: LACTULOSE 20 GM/30 ML UDC (FOR ORAL USE ONLY) PO SCH (09:47)
[2020-07-17] MEDS: CINACALCET HCL 30 MG TAB (FP) PO SCH (09:47)
[2020-07-17] MEDS: VALSARTAN 40 MG TABLET PO SCH (09:47)
[2020-07-17] MEDS: AMINO ACIDS/PROTEIN HYDROLYS 30 ML LIQUID.PKT PO SCH ×3 (09:47→17:26)
[2020-07-17] MEDS: SODIUM BICARBONATE 650 MG TABLET PO SCH ×2 (09:47→21:05)
[2020-07-17] MEDS: FINASTERIDE 5 MG TABLET (FP) PO SCH (09:48)
[2020-07-17] MEDS: ENOXAPARIN NA (PORCINE) 40 MG/0.4 ML DISP.SYRIN SQ SCH (09:48)
[2020-07-17] MEDS ORDERED: SIMETHICONE 40 MG/0.6 ML BOTTLE PO PRN (10:35)
[2020-07-17 12:10] LABS: ANISOCYTOSIS 1+; MACROCYTOSIS 0; OVALOCYTE 2+; PLATELET ESTIMATE NORMAL
[2020-07-17] MEDS: POLYETHYLENE GLYCOL 3350 119 GM BTL PO SCH (15:09)
[2020-07-17] MEDS: azaTHIOprine 50 MG TABLET PO SCH (15:10)
[2020-07-17 20:39] VITALS: BP 160/62; PULSE 73; TEMP 98.1
[2020-07-17] MEDS: FAMOTIDINE 10 MG TABLET PO SCH (21:05)
[2020-07-17] MEDS: DOCUSATE SODIUM 100 MG CAPSULE (FP) PO SCH (21:05)
[2020-07-17] MEDS: MELATONIN 1 MG TABLET PO SCH (21:05)
[2020-07-17] MEDS: ATORVASTATIN CA 10 MG TABLET (FP) PO SCH (21:05)
[2020-07-17] MEDS: SENNOSIDES 8.8 MG/5 ML BULK BOTTLE PO SCH (21:06)
== END 2020-07-17 21:21 | disposition home health service (06) | DRG 602 ==
LOC: JER 12:18 → JERBED 16:56 → OBSVTOIN 18:24 → J7W 20:53
PROVIDERS: ADMIT Internal Medicine; ATTEND Student in an Organized Health Care Education/Training Program
PROC: 0Y9J0ZX Drainage of Left Lower Leg, Open Approach, Diagnostic (ICD-10-PCS; principal; 2020-07-03)
DX: L03.116 Cellulitis of left lower limb (principal); E43 Unspecified severe protein-calorie malnutrition; L98.498 Non-pressure chronic ulcer of skin of other sites with other specified severity; K92.0 Hematemesis; Z94.0 Kidney transplant status; Z68.1 Body mass index [BMI] 19.9 or less, adult; M86.671 Other chronic osteomyelitis, right ankle and foot; L08.89 Other specified local infections of the skin and subcutaneous tissue; G30.9 Alzheimer's disease, unspecified; F02.80 Dementia in other diseases classified elsewhere, unspecified severity, without behavioral disturbance, psychotic disturbance, mood disturbance, and anxiety; E11.69 Type 2 diabetes mellitus with other specified complication; R33.9 Retention of urine, unspecified; D70.9 Neutropenia, unspecified; B02.9 Zoster without complications; E78.00 Pure hypercholesterolemia, unspecified; E11.622 Type 2 diabetes mellitus with other skin ulcer; I25.10 Atherosclerotic heart disease of native coronary artery without angina pectoris; K59.09 Other constipation; H54.40 Blindness, one eye, unspecified eye; I12.9 Hypertensive chronic kidney disease with stage 1 through stage 4 chronic kidney disease, or unspecified chronic kidney disease; E11.22 Type 2 diabetes mellitus with diabetic chronic kidney disease; N18.9 Chronic kidney disease, unspecified; R53.1 Weakness; R41.82 Altered mental status, unspecified; D64.9 Anemia, unspecified; B95.61 Methicillin susceptible Staphylococcus aureus infection as the cause of diseases classified elsewhere; E83.42 Hypomagnesemia; J32.9 Chronic sinusitis, unspecified; Z95.5 Presence of coronary angioplasty implant and graft; Z86.73 Personal history of transient ischemic attack (TIA), and cerebral infarction without residual deficits
CPT/HCPCS: 36415; 70450-TC; 71045-TC-FY; 73590-TC-LT-FY; 80048; 80053; 81003; 82272; 82550; 82728; 82962; 83540; 83550; 83605; 83735; 84100; 84443; 84484; 85025; 85027; 85045; 85610; 85651; 85730; 86140; 86850; 86900; 86901; 87040; 87070; 87077; 87081; 87086; 87186; 87205; 93005; 93010; 93922; 93926-TC; 97116-GP; 97161-GP; 99285-25; C9803; E0186; G0378; J0131; U0003; U0005

== ENCOUNTER 2020-07-29 22:52 | Inpatient (IN) | payer OTHER ==
[2020-07-29] MEDS ORDERED: SODIUM CHLORIDE 1,783 ML IV ONE (23:40)
[2020-07-30] MEDS ORDERED: CEFTRIAXONE 1,000 MG in DEXTROSE 5%-WATER - 50 ML IVPB ONE (00:04)
[2020-07-30 00:44] LABS: BASO % 0.3 % (0-2.0); HEMATOCRIT 32.3 % (35.4-49); HEMOGLOBIN 10.4 GM/dL (11.7-16.9); LYMPH % 14.1 % (8-40); MCH 30.1 pg (25.7-33.7); MCHC 32.2 g/dl (32.0-35.9); MEAN CELL VOLUME 93.3 fl (80-96); MEAN PLT VOLUME 6.3 fl (7.5-11.1); MONO % 7.4 % (3.8-10.2); NEUT % 78.2 % (42.8-82.8); PLATELET COUNT 300 10^3/uL (134-434); RBC 3.47 M/mm3 (4.00-5.60); RDW 17.7 % (11.9-15.9); WHITE BLOOD COUNT 16.1 K/mm3 (4.0-10.0)
[2020-07-30 00:49] LABS: VENOUS BASE EXCESS 2.1 mmol/L (-2-2); VENOUS O2 SATURATION 30.9 % (70-80); VENOUS PCO2 59.5 mmHg (38-52); VENOUS PH 7.311 (7.310-7.410)
[2020-07-30] MEDS ORDERED: CEFTRIAXONE 1 GM/50 ML BAG ONE (00:59)
[2020-07-30 01:04] LABS: CHLORIDE 101 mmol/L (98-107); SODIUM 135 mmol/L (136-145)
[2020-07-30 01:06] LABS: ANION GAP 9 MMOL/L (8-16); BLOOD UREA NITROGEN 27.4 mg/dL (7-18); CO2 25 mmol/L (21-32)
[2020-07-30 01:07] LABS: GLUCOSE,RANDOM 170 mg/dL (74-106)
[2020-07-30 01:08] LABS: SGPT/ALT 16 U/L (13-61)
[2020-07-30 01:10] LABS: CREATININE 1.4 mg/dL (0.55-1.3); SGOT/AST 18 U/L (15-37)
[2020-07-30 01:11] LABS: TOT PROT 7.8 g/dl (6.4-8.2)
[2020-07-30 01:12] LABS: ALK PHOS 86 U/L (45-117)
[2020-07-30 01:14] LABS: BILIRUBIN,TOTAL 0.7 mg/dL (0.2-1)
[2020-07-30 01:42] LABS: CALCIUM 10.6 mg/dL (8.5-10.1); LACTIC ACID 2.8 mmol/L (0.4-2.0)
[2020-07-30] MEDS ORDERED: morphine CARPU-JECT 4 MG/1 ML DISP.SYRIN IVPUSH ONE (01:48)
[2020-07-30] MEDS ORDERED: MEROPENEM 500 MG VIAL (RESTRICTED TO ID) IVPB ONE ×2 (04:45→10:35)
[2020-07-30] MEDS ORDERED: LINEZOLID 600 MG PREMIX BAG 600 MG/300 ML BAG IVPB SCH (04:45)
[2020-07-30] MEDS ORDERED: DEXTROSE 5%-WATER 100 ML IVPB ONE ×2 (04:46→10:35)
[2020-07-30] MEDS ORDERED: ACETAMINOPHEN 1000 MG/100 ML VIAL (NON FORMULARY) IVPB PRN (05:12)
[2020-07-30 05:29] LABS: EPI CELLS 1 /uL (0-25.1); HYALINE CASTS 2 /uL (0-3.1); PH,URINE 5.5 (5.0-8.0); URINE APPEARANCE CLEAR; URINE BACTERIA 144 /uL (0-1359); URINE BILIRUBIN NEGATIVE (NEGATIVE); URINE COLOR YELLOW; URINE GLUCOSE (UA) NEGATIVE (NEGATIVE); URINE KETONE NEGATIVE (NEGATIVE); URINE LEUK ESTERASE 2+ (NEGATIVE); URINE NITRITE NEGATIVE (NEGATIVE); URINE PROTEIN 2+ (NEGATIVE); URINE RBC 55 /uL (0-23.9); URINE UROBILINOGEN 0.2 mg/dL (0.2-1.0); URINE WBC 377 /uL (0-25.8)
[2020-07-30] MEDS: MEROPENEM 500 MG in DEXTROSE 5%-WATER 100 ML IVPB SCH ×2 (06:19→10:44)
[2020-07-30] MEDS: INSULIN SLIDING SCALE (NOVOLOG) 1 VIAL SQ SCH ×4 (06:35→21:56)
[2020-07-30 09:05] LABS: HEMATOCRIT 27.3 % (35.4-49); HEMOGLOBIN 8.9 GM/dL (11.7-16.9); MCH 30.1 pg (25.7-33.7); MCHC 32.6 g/dl (32.0-35.9); MEAN CELL VOLUME 92.3 fl (80-96); MEAN PLT VOLUME 6.5 fl (7.5-11.1); PLATELET COUNT 246 10^3/uL (134-434); RBC 2.96 M/mm3 (4.00-5.60); RDW 17.4 % (11.9-15.9); WHITE BLOOD COUNT 15.7 K/mm3 (4.0-10.0)
[2020-07-30] MEDS ORDERED: INSULIN (NOVOLOG) ASPART 100 UNITS/ML 10ML VIAL ONE (09:36)
[2020-07-30 09:39] LABS: CALCIUM 9.7 mg/dL (8.5-10.1)
[2020-07-30 09:40] LABS: ALBUMIN 2.4 g/dl (3.4-5.0); BLOOD UREA NITROGEN 22.6 mg/dL (7-18); MAGNESIUM 1.3 mg/dL (1.8-2.4)
[2020-07-30 09:42] LABS: BILIRUBIN,TOTAL 0.6 mg/dL (0.2-1)
[2020-07-30 09:43] LABS: PHOSPHOROUS 2.5 mg/dL (2.5-4.9)
[2020-07-30 09:44] LABS: TOT PROT 6.3 g/dl (6.4-8.2)
[2020-07-30] MEDS: ASPIRIN 81 MG CHEWABLE TABLETS PO SCH (10:38)
[2020-07-30] MEDS: azaTHIOprine 50 MG TABLET PO SCH (10:39)
[2020-07-30] MEDS ORDERED: PT OWN MED DRAWER 7, Y5N ONE (10:40)
[2020-07-30] MEDS: ZINC OXIDE/PANTHENOL/VITAMIN E 56 GM TUBE TP SCH (10:43)
[2020-07-30] MEDS: HEPARIN NA (PORCINE) 5,000 UNITS/ML 1ML VIAL SQ SCH ×3 (10:44→21:53)
[2020-07-30 11:48] LABS: INR 1.23 (0.83-1.09)
[2020-07-30 11:51] LABS: ACTIVATED PTT 27.9 SECONDS (25.2-36.5)
[2020-07-30] MEDS ORDERED: MAGNESIUM SULF 50% (8.12 MEQ/2 ML-1 GM VIAL) IVPB ONE (12:20)
[2020-07-30] MEDS ORDERED: ACETAMINOPHEN 325 MG TABLET (FP) PO PRN (17:29)
[2020-07-30] MEDS: ATORVASTATIN CA 10 MG TABLET (FP) PO SCH (21:53)
[2020-07-31] MEDS ORDERED: MEROPENEM 500 MG in DEXTROSE 5%-WATER 100 ML IVPB SCH (02:00)
[2020-07-31 03:05] LABS: HEMOGLOBIN 8.6 GM/dL (11.7-16.9); MEAN CELL VOLUME 91.8 fl (80-96)
[2020-07-31 03:15] LABS: HEMATOCRIT 26.2 % (35.4-49); MCH 30.2 pg (25.7-33.7); MCHC 32.9 g/dl (32.0-35.9); MEAN PLT VOLUME 6.9 fl (7.5-11.1); PLATELET COUNT 226 10^3/uL (134-434); RBC 2.86 M/mm3 (4.00-5.60); RDW 17.5 % (11.9-15.9); WHITE BLOOD COUNT 10.6 K/mm3 (4.0-10.0)
[2020-07-31] MEDS ORDERED: LINEZOLID 600 MG PREMIX BAG 600 MG/300 ML BAG IVPB SCH (05:00)
[2020-07-31] MEDS: INSULIN SLIDING SCALE (NOVOLOG) 1 VIAL SQ SCH ×4 (06:14→22:00)
[2020-07-31] MEDS: HEPARIN NA (PORCINE) 5,000 UNITS/ML 1ML VIAL SQ SCH ×3 (06:21→21:55)
[2020-07-31 09:01] LABS: HEMATOCRIT 26.2 % (35.4-49); HEMOGLOBIN 8.7 GM/dL (11.7-16.9); MCH 30.5 pg (25.7-33.7); MCHC 33.1 g/dl (32.0-35.9); MEAN CELL VOLUME 92.2 fl (80-96); MEAN PLT VOLUME 6.8 fl (7.5-11.1); PLATELET COUNT 232 10^3/uL (134-434); RBC 2.84 M/mm3 (4.00-5.60); RDW 17.4 % (11.9-15.9); WHITE BLOOD COUNT 8.9 K/mm3 (4.0-10.0)
[2020-07-31] MEDS ORDERED: cefTRIAXone SODIUM 1 GM VIAL ONE (09:17)
[2020-07-31] MEDS ORDERED: DEXTROSE 5%-WATER - 50 ML IVPB ONE (09:18)
[2020-07-31] MEDS: TAMSULOSIN HCL 0.4 MG CAP PO SCH (09:20)
[2020-07-31 09:30] LABS: CALCIUM 10.2 mg/dL (8.5-10.1)
[2020-07-31 09:31] LABS: ALBUMIN 2.4 g/dl (3.4-5.0); BLOOD UREA NITROGEN 17.8 mg/dL (7-18); MAGNESIUM 1.7 mg/dL (1.8-2.4)
[2020-07-31 09:35] LABS: PHOSPHOROUS 2.3 mg/dL (2.5-4.9); TOT PROT 6.4 g/dl (6.4-8.2)
[2020-07-31 09:36] LABS: BILIRUBIN,TOTAL 0.6 mg/dL (0.2-1)
[2020-07-31] MEDS: CINACALCET HCL 30 MG TAB (FP) PO SCH (09:43)
[2020-07-31] MEDS: FINASTERIDE 5 MG TABLET (FP) PO SCH (09:43)
[2020-07-31] MEDS: ASPIRIN 81 MG CHEWABLE TABLETS PO SCH (09:43)
[2020-07-31] MEDS: CEFTRIAXONE 1 GM in DEXTROSE 5%-WATER - 50 ML IVPB SCH (09:44)
[2020-07-31] MEDS ORDERED: INSULIN (NOVOLOG) ASPART 100 UNITS/ML 10ML VIAL ONE (11:33)
[2020-07-31] MEDS: azaTHIOprine 50 MG TABLET PO SCH (11:37)
[2020-07-31] MEDS: ZINC OXIDE/PANTHENOL/VITAMIN E 56 GM TUBE TP SCH (11:41)
[2020-07-31 14:42] VITALS: BMI 17.3
[2020-07-31] MEDS ORDERED: MAGNESIUM OXIDE 400 MG TABLET (FP) PO ONE (15:27)
[2020-07-31] MEDS ORDERED: SODIUM CHLORIDE 0.45% 1,000 ML IV SCH (15:30)
[2020-07-31] MEDS ORDERED: azaTHIOprine 50 MG TABLET PO ONE (15:30)
[2020-07-31] MEDS: predniSONE 5 MG TABLET (UD) PO SCH (16:38)
[2020-07-31] MEDS ORDERED: NAPH,MB-DB/K PH,MBDB POWDER PACKET PO ONE (19:27)
[2020-07-31] MEDS: ATORVASTATIN CA 10 MG TABLET (FP) PO SCH (21:55)
[2020-07-31] MEDS: TACROLIMUS ANHYDROUS 1 MG CAPSULE PO SCH (21:55)
[2020-08-01] MEDS: HEPARIN NA (PORCINE) 5,000 UNITS/ML 1ML VIAL SQ SCH ×3 (05:58→21:28)
[2020-08-01] MEDS: INSULIN SLIDING SCALE (NOVOLOG) 1 VIAL SQ SCH ×4 (06:03→21:29)
[2020-08-01] MEDS: TAMSULOSIN HCL 0.4 MG CAP PO SCH (09:00)
[2020-08-01] MEDS ORDERED: PT OWN MED DRAWER 7, Y5N ONE (09:45)
[2020-08-01] MEDS ORDERED: cefTRIAXone SODIUM 1 GM VIAL ONE (09:45)
[2020-08-01] MEDS ORDERED: DEXTROSE 5%-WATER - 50 ML IVPB ONE (09:45)
[2020-08-01] MEDS: CEFTRIAXONE 1 GM in DEXTROSE 5%-WATER - 50 ML IVPB SCH (09:59)
[2020-08-01] MEDS: CINACALCET HCL 30 MG TAB (FP) PO SCH (10:00)
[2020-08-01] MEDS: ASPIRIN 81 MG CHEWABLE TABLETS PO SCH (10:00)
[2020-08-01] MEDS: predniSONE 5 MG TABLET (UD) PO SCH (10:00)
[2020-08-01] MEDS: azaTHIOprine 50 MG TABLET PO SCH (10:05)
[2020-08-01] MEDS: FINASTERIDE 5 MG TABLET (FP) PO SCH (10:06)
[2020-08-01 10:47] LABS: HEMATOCRIT 26.9 % (35.4-49); HEMOGLOBIN 8.8 GM/dL (11.7-16.9); MCH 30.3 pg (25.7-33.7); MCHC 32.6 g/dl (32.0-35.9); MEAN PLT VOLUME 6.6 fl (7.5-11.1); PLATELET COUNT 234 10^3/uL (134-434); RBC 2.89 M/mm3 (4.00-5.60); RDW 17.2 % (11.9-15.9); WHITE BLOOD COUNT 3.8 K/mm3 (4.0-10.0)
[2020-08-01 11:08] LABS: ALBUMIN 2.4 g/dl (3.4-5.0); BLOOD UREA NITROGEN 16.6 mg/dL (7-18); CALCIUM 9.8 mg/dL (8.5-10.1); MAGNESIUM 1.5 mg/dL (1.8-2.4)
[2020-08-01 11:11] LABS: PHOSPHOROUS 2.8 mg/dL (2.5-4.9)
[2020-08-01 11:13] LABS: BILIRUBIN,TOTAL 0.2 mg/dL (0.2-1); TOT PROT 6.8 g/dl (6.4-8.2)
[2020-08-01] MEDS: ZINC OXIDE/PANTHENOL/VITAMIN E 56 GM TUBE TP SCH (11:24)
[2020-08-01] MEDS ORDERED: MAGNESIUM 2GM/50ML STERILE WATER IVPB IVPB ONE (11:45)
[2020-08-01] MEDS: VALSARTAN 40 MG TABLET PO SCH (11:54)
[2020-08-01] MEDS: TACROLIMUS ANHYDROUS 1 MG CAPSULE PO SCH ×2 (11:54→21:28)
[2020-08-01] MEDS ORDERED: MAGNESIUM OXIDE 400 MG TABLET (FP) PO ONE (12:00)
[2020-08-01] MEDS ORDERED: SODIUM CHLORIDE 0.45% 1,000 ML IV SCH (14:00)
[2020-08-01] MEDS ORDERED: MAGNESIUM SULF 50% (8.12 MEQ/2 ML-1 GM VIAL) IVPB ONE (14:45)
[2020-08-01] MEDS: ATORVASTATIN CA 10 MG TABLET (FP) PO SCH (21:29)
[2020-08-02] MEDS ORDERED: amLODIPine BESYLATE 5 MG TABLET (FP) PO ONE (05:25)
[2020-08-02] MEDS: INSULIN SLIDING SCALE (NOVOLOG) 1 VIAL SQ SCH ×3 (06:34→16:39)
[2020-08-02] MEDS: HEPARIN NA (PORCINE) 5,000 UNITS/ML 1ML VIAL SQ SCH ×2 (06:34→13:42)
[2020-08-02] MEDS: FINASTERIDE 5 MG TABLET (FP) PO SCH (10:19)
[2020-08-02] MEDS: TAMSULOSIN HCL 0.4 MG CAP PO SCH (10:19)
[2020-08-02] MEDS: CINACALCET HCL 30 MG TAB (FP) PO SCH (10:19)
[2020-08-02] MEDS: VALSARTAN 40 MG TABLET PO SCH (10:20)
[2020-08-02] MEDS: ZINC OXIDE/PANTHENOL/VITAMIN E 56 GM TUBE TP SCH (10:20)
[2020-08-02] MEDS: azaTHIOprine 50 MG TABLET PO SCH (10:20)
[2020-08-02] MEDS: predniSONE 5 MG TABLET (UD) PO SCH (10:20)
[2020-08-02] MEDS: ASPIRIN 81 MG CHEWABLE TABLETS PO SCH (10:22)
[2020-08-02] MEDS: TACROLIMUS ANHYDROUS 1 MG CAPSULE PO SCH (11:20)
[2020-08-02 11:56] LABS: HEMATOCRIT 27.5 % (35.4-49); HEMOGLOBIN 8.9 GM/dL (11.7-16.9); MCH 29.8 pg (25.7-33.7); MCHC 32.3 g/dl (32.0-35.9); MEAN CELL VOLUME 92.1 fl (80-96); MEAN PLT VOLUME 6.8 fl (7.5-11.1); PLATELET COUNT 258 10^3/uL (134-434); RBC 2.99 M/mm3 (4.00-5.60); RDW 17.1 % (11.9-15.9); WHITE BLOOD COUNT 3.9 K/mm3 (4.0-10.0)
[2020-08-02 12:17] LABS: BLOOD UREA NITROGEN 18.9 mg/dL (7-18)
[2020-08-02 12:20] LABS: ALBUMIN 2.4 g/dl (3.4-5.0)
[2020-08-02 12:22] LABS: CREATININE 0.8 mg/dL (0.55-1.3)
[2020-08-02 12:23] LABS: BILIRUBIN,TOTAL 0.2 mg/dL (0.2-1); TOT PROT 6.3 g/dl (6.4-8.2)
[2020-08-02 16:28] VITALS: BP 163/50; PULSE 72; TEMP 98.2
== END 2020-08-02 16:50 | disposition home health service (06) | DRG 872 ==
LOC: JER 22:52 → JERBED 07-30 02:05 → J5S 07-30 03:33
PROVIDERS: ADMIT Internal Medicine; ATTEND Internal Medicine
DX: A41.51 Sepsis due to Escherichia coli [E. coli] (principal); Z94.0 Kidney transplant status; N17.9 Acute kidney failure, unspecified; M86.671 Other chronic osteomyelitis, right ankle and foot; N39.0 Urinary tract infection, site not specified; E87.1 Hypo-osmolality and hyponatremia; I25.10 Atherosclerotic heart disease of native coronary artery without angina pectoris; E78.5 Hyperlipidemia, unspecified; G30.9 Alzheimer's disease, unspecified; F02.80 Dementia in other diseases classified elsewhere, unspecified severity, without behavioral disturbance, psychotic disturbance, mood disturbance, and anxiety; L89.212 Pressure ulcer of right hip, stage 2; N13.9 Obstructive and reflux uropathy, unspecified; R33.9 Retention of urine, unspecified; E83.52 Hypercalcemia; D72.829 Elevated white blood cell count, unspecified; I12.9 Hypertensive chronic kidney disease with stage 1 through stage 4 chronic kidney disease, or unspecified chronic kidney disease; E11.51 Type 2 diabetes mellitus with diabetic peripheral angiopathy without gangrene; E11.69 Type 2 diabetes mellitus with other specified complication; K59.09 Other constipation; D64.9 Anemia, unspecified; E83.42 Hypomagnesemia; E11.22 Type 2 diabetes mellitus with diabetic chronic kidney disease; W18.30XA Fall on same level, unspecified, initial encounter; N18.9 Chronic kidney disease, unspecified; Z86.73 Personal history of transient ischemic attack (TIA), and cerebral infarction without residual deficits; Z95.5 Presence of coronary angioplasty implant and graft; Y92.098 Other place in other non-institutional residence as the place of occurrence of the external cause
CPT/HCPCS: 36415; 70450-TC; 71045-TC-FY; 72125-TC; 80053; 81003; 82803; 82962; 83605; 83735; 83970; 84100; 84300; 84484; 85025; 85027; 85610; 85730; 86850; 86900; 86901; 87040; 87086; 87186; 93005; 93010; 97116-GP; 97161-GP; 99285-25; C9803; J1644; U0003; U0005

== ENCOUNTER 2020-08-18 14:40 | Emergency (ER) | payer OTHER ==
[2020-08-18 14:50] VITALS: BMI 17.2
[2020-08-18 16:50] VITALS: BP 120/50; PULSE 72; TEMP 97.9
== END 2020-08-18 15:50 | disposition home or self-care (01) ==
LOC: JER 14:40
DX: N13.9 Obstructive and reflux uropathy, unspecified (principal); Z46.6 Encounter for fitting and adjustment of urinary device
CPT/HCPCS: 99282-25

== ENCOUNTER 2020-08-26 15:26 | Inpatient (IN) | payer OTHER ==
[2020-08-26 16:33] VITALS: BMI 19.8
[2020-08-26] MEDS ORDERED: SODIUM CHLORIDE 0.9% 500 ML INFUS.BAG IV ONE (17:48)
[2020-08-26 19:25] LABS: BASO % 0.3 % (0-2.0); EOS % 3.9 % (0-4.5); HEMATOCRIT 25.7 % (35.4-49); HEMOGLOBIN 8.4 GM/dL (11.7-16.9); LYMPH % 50.4 % (8-40); MCHC 32.6 g/dl (32.0-35.9); MONO % 4.7 % (3.8-10.2); NEUT % 40.7 % (42.8-82.8); PLATELET COUNT 74 10^3/uL (134-434); RBC 2.89 M/mm3 (4.00-5.60); RDW 19.1 % (11.9-15.9)
[2020-08-26 19:30] LABS: WHITE BLOOD COUNT 1.6 K/mm3 (4.0-10.0)
[2020-08-26 19:57] LABS: CHLORIDE 106 mmol/L (98-107); SODIUM 140 mmol/L (136-145)
[2020-08-26 19:59] LABS: ALBUMIN 2.5 g/dl (3.4-5.0); ANION GAP 7 MMOL/L (8-16); BLOOD UREA NITROGEN 37.1 mg/dL (7-18); CALCIUM 10.2 mg/dL (8.5-10.1); CO2 27 mmol/L (21-32); GLUCOSE,RANDOM 196 mg/dL (74-106)
[2020-08-26 20:03] LABS: CREATININE 1.2 mg/dL (0.55-1.3); SGOT/AST 21 U/L (15-37); SGPT/ALT 21 U/L (13-61)
[2020-08-26 20:04] LABS: BILIRUBIN,TOTAL 0.4 mg/dL (0.2-1); TOT PROT 6.7 g/dl (6.4-8.2)
[2020-08-26 20:06] LABS: ALK PHOS 66 U/L (45-117)
[2020-08-26 20:17] LABS: ANISOCYTOSIS 2+; MACROCYTOSIS 1+; OVALOCYTE 1+; PLATELET ESTIMATE DECREASED
[2020-08-27 00:05] LABS: EPI CELLS 24 /uL (0-25.1); HYALINE CASTS 18 /uL (0-3.1); PH,URINE 5.5 (5.0-8.0); URINE APPEARANCE TURBID; URINE BACTERIA >9,000 /uL (0-1359); URINE BILIRUBIN NEGATIVE (NEGATIVE); URINE COLOR DK YELLOW; URINE GLUCOSE (UA) NEGATIVE (NEGATIVE); URINE KETONE TRACE (NEGATIVE); URINE LEUK ESTERASE 3+ (NEGATIVE); URINE NITRITE POSITIVE (NEGATIVE); URINE PROTEIN 3+ (NEGATIVE); URINE WBC 9437 /uL (0-25.8)
[2020-08-27 01:22] LABS: URINE RBC 344.6 /uL (0-23.9); YEAST NONE SEEN (NEGATIVE)
[2020-08-27] MEDS ORDERED: CEFTRIAXONE 1,000 MG in DEXTROSE 5%-WATER - 50 ML IVPB STA (01:23)
[2020-08-27] MEDS ORDERED: CEFTRIAXONE 1 GM/50 ML BAG ONE (02:23)
[2020-08-27 06:54] LABS: BASO % 0.1 % (0-2.0); EOS % 4.8 % (0-4.5); HEMATOCRIT 26.5 % (35.4-49); HEMOGLOBIN 8.6 GM/dL (11.7-16.9); MCH 28.9 pg (25.7-33.7); MCHC 32.5 g/dl (32.0-35.9); MEAN CELL VOLUME 88.9 fl (80-96); MEAN PLT VOLUME 6.9 fl (7.5-11.1); MONO % 5.2 % (3.8-10.2); NEUT % 36.9 % (42.8-82.8); PLATELET COUNT 79 10^3/uL (134-434); RBC 2.98 M/mm3 (4.00-5.60); RDW 18.8 % (11.9-15.9)
[2020-08-27 07:06] LABS: WHITE BLOOD COUNT 1.5 K/mm3 (4.0-10.0)
[2020-08-27 07:16] LABS: CALCIUM 10.7 mg/dL (8.5-10.1)
[2020-08-27 07:17] LABS: ALBUMIN 2.5 g/dl (3.4-5.0); BLOOD UREA NITROGEN 31.1 mg/dL (7-18); MAGNESIUM 1.5 mg/dL (1.8-2.4)
[2020-08-27 07:20] LABS: BILIRUBIN,TOTAL 0.5 mg/dL (0.2-1); TOT PROT 6.6 g/dl (6.4-8.2)
[2020-08-27] MEDS ORDERED: FAMOTIDINE 10 MG TABLET ONE (08:27)
[2020-08-27] MEDS: FAMOTIDINE 10 MG TABLET PO SCH (08:28)
[2020-08-27] MEDS ORDERED: MAGNESIUM 1GM/D5W 100ML - 100 ML IVPB IVPB ONE (08:30)
[2020-08-27] MEDS ORDERED: TAMSULOSIN HCL 0.4 MG CAP ONE (08:41)
[2020-08-27] MEDS ORDERED: MAGNESIUM 1GM/D5W - 1 GM/100 ML IVPB IVPB ONE (09:17)
[2020-08-27] MEDS ORDERED: ASPIRIN 81 MG CHEWABLE TABLETS ONE (09:17)
[2020-08-27] MEDS ORDERED: PT OWN MED DRAWER 7, Y5N ONE (09:19)
[2020-08-27 09:26] LABS: ANISOCYTOSIS 1+; PLATELET ESTIMATE DECREASED
[2020-08-27] MEDS: azaTHIOprine 50 MG TABLET PO SCH (09:46)
[2020-08-27] MEDS: FINASTERIDE 5 MG TABLET (FP) PO SCH (09:46)
[2020-08-27] MEDS: TAMSULOSIN HCL 0.4 MG CAP PO SCH (09:46)
[2020-08-27] MEDS: CINACALCET HCL 30 MG TAB (FP) PO SCH (09:46)
[2020-08-27] MEDS: ASPIRIN 81 MG CHEWABLE TABLETS PO SCH (09:46)
[2020-08-27] MEDS ORDERED: VANCOMYCIN 1 GRAM (PRE-DOCKED) 1,000 MG/250 ML BAG IVPB ONE ×2 (15:00→15:57)
[2020-08-27] MEDS ORDERED: MEROPENEM 1 GM VIAL (RESTRICTED TO ID) IVPB ONE ×2 (15:57→18:01)
[2020-08-27] MEDS: MEROPENEM 1 GM in DEXTROSE 5%-WATER 100 ML IVPB SCH ×2 (16:11→18:21)
[2020-08-27] MEDS ORDERED: DEXTROSE 5%-WATER 100 ML IVPB ONE (18:01)
[2020-08-27] MEDS: MELATONIN 1 MG TABLET PO SCH (21:14)
[2020-08-27] MEDS: ATORVASTATIN CA 10 MG TABLET (FP) PO SCH (21:15)
[2020-08-28] MEDS ORDERED: DEXTROSE 5%-WATER 100 ML IVPB ONE ×3 (01:12→17:48)
[2020-08-28] MEDS ORDERED: MEROPENEM 1 GM VIAL (RESTRICTED TO ID) IVPB ONE ×3 (01:12→17:48)
[2020-08-28] MEDS: MEROPENEM 1 GM in DEXTROSE 5%-WATER 100 ML IVPB SCH ×3 (01:50→17:51)
[2020-08-28] MEDS: FAMOTIDINE 10 MG TABLET PO SCH (06:03)
[2020-08-28] MEDS ORDERED: CEFTRIAXONE 1 GM in DEXTROSE 5%-WATER - 50 ML IVPB SCH (10:00)
[2020-08-28] MEDS ORDERED: PT OWN MED DRAWER 7, Y5N ONE (11:55)
[2020-08-28] MEDS: ASPIRIN 81 MG CHEWABLE TABLETS PO SCH (12:07)
[2020-08-28] MEDS: CINACALCET HCL 30 MG TAB (FP) PO SCH (12:07)
[2020-08-28] MEDS: FINASTERIDE 5 MG TABLET (FP) PO SCH (12:08)
[2020-08-28] MEDS: TAMSULOSIN HCL 0.4 MG CAP PO SCH (12:08)
[2020-08-28] MEDS: azaTHIOprine 50 MG TABLET PO SCH (12:09)
[2020-08-28] MEDS ORDERED: PROG PO SCH (16:16)
[2020-08-28] MEDS: NYSTATIN 500,000 UNITS/5 ML SUSPENSION PO SCH ×2 (17:51→23:15)
[2020-08-28] MEDS: TACROLIMUS ANHYDROUS 1 MG CAPSULE PO SCH (17:57)
[2020-08-28 19:30] LABS: CALCIUM 10.2 mg/dL (8.5-10.1)
[2020-08-28 19:31] LABS: ALBUMIN 2.2 g/dl (3.4-5.0); BLOOD UREA NITROGEN 31.6 mg/dL (7-18)
[2020-08-28 19:32] LABS: BASO % 0.2 % (0-2.0); EOS % 5.4 % (0-4.5); HEMATOCRIT 25.3 % (35.4-49); HEMOGLOBIN 8.2 GM/dL (11.7-16.9); MCH 29.1 pg (25.7-33.7); MCHC 32.5 g/dl (32.0-35.9); MEAN CELL VOLUME 89.3 fl (80-96); MEAN PLT VOLUME 6.9 fl (7.5-11.1); NEUT % 26.4 % (42.8-82.8); PLATELET COUNT 79 10^3/uL (134-434); RBC 2.84 M/mm3 (4.00-5.60); RDW 18.9 % (11.9-15.9)
[2020-08-28 19:36] LABS: BILIRUBIN,TOTAL 0.4 mg/dL (0.2-1); TOT PROT 6.1 g/dl (6.4-8.2)
[2020-08-28 19:37] LABS: WHITE BLOOD COUNT 1.8 K/mm3 (4.0-10.0)
[2020-08-28] MEDS: TACROLIMUS 5 MG PO SCH (20:11)
[2020-08-28 20:40] LABS: ANISOCYTOSIS 2+; MACROCYTOSIS 0; OVALOCYTE 1+; PLATELET ESTIMATE DECREASED; TARGET CELLS 2+
[2020-08-28] MEDS: ATORVASTATIN CA 10 MG TABLET (FP) PO SCH (21:10)
[2020-08-28] MEDS: MELATONIN 1 MG TABLET PO SCH (21:10)
[2020-08-29] MEDS ORDERED: MEROPENEM 1 GM VIAL (RESTRICTED TO ID) IVPB ONE ×3 (00:58→18:02)
[2020-08-29] MEDS ORDERED: DEXTROSE 5%-WATER 100 ML IVPB ONE ×3 (00:58→18:02)
[2020-08-29] MEDS: MEROPENEM 1 GM in DEXTROSE 5%-WATER 100 ML IVPB SCH ×3 (01:14→18:14)
[2020-08-29] MEDS: NYSTATIN 500,000 UNITS/5 ML SUSPENSION PO SCH ×3 (06:12→18:14)
[2020-08-29] MEDS: FAMOTIDINE 20 MG TABLET PO SCH (06:13)
[2020-08-29] MEDS: TACROLIMUS ANHYDROUS 1 MG CAPSULE PO SCH ×3 (06:17→22:40)
[2020-08-29] MEDS: AMINO ACIDS/PROTEIN HYDROLYS 30 ML LIQUID.PKT PO SCH (08:19)
[2020-08-29] MEDS: TAMSULOSIN HCL 0.4 MG CAP PO SCH (08:19)
[2020-08-29] MEDS ORDERED: PT OWN MED DRAWER 7, Y5N ONE (10:33)
[2020-08-29] MEDS: FINASTERIDE 5 MG TABLET (FP) PO SCH (10:49)
[2020-08-29] MEDS: CINACALCET HCL 30 MG TAB (FP) PO SCH (10:49)
[2020-08-29] MEDS: ASPIRIN 81 MG CHEWABLE TABLETS PO SCH (10:50)
[2020-08-29 11:27] LABS: HEMATOCRIT 27.2 % (35.4-49); HEMOGLOBIN 8.8 GM/dL (11.7-16.9); MCHC 32.4 g/dl (32.0-35.9); MEAN CELL VOLUME 89.6 fl (80-96); PLATELET COUNT 98 10^3/uL (134-434); RBC 3.03 M/mm3 (4.00-5.60); RDW 18.9 % (11.9-15.9)
[2020-08-29 11:34] LABS: WHITE BLOOD COUNT 1.4 K/mm3 (4.0-10.0)
[2020-08-29 11:43] LABS: ALBUMIN 2.3 g/dl (3.4-5.0); BLOOD UREA NITROGEN 31.8 mg/dL (7-18); MAGNESIUM 1.6 mg/dL (1.8-2.4)
[2020-08-29 11:47] LABS: BILIRUBIN,TOTAL 0.3 mg/dL (0.2-1); TOT PROT 6.3 g/dl (6.4-8.2)
[2020-08-29] MEDS ORDERED: MAGNESIUM OXIDE 400 MG TABLET (FP) PO ONE (14:56)
[2020-08-29] MEDS: INSULIN SLIDING SCALE (NOVOLOG) 1 VIAL SQ SCH ×2 (18:13→23:26)
[2020-08-29] MEDS: MELATONIN 1 MG TABLET PO SCH (22:40)
[2020-08-29] MEDS: ATORVASTATIN CA 10 MG TABLET (FP) PO SCH (22:40)
[2020-08-30] MEDS: NYSTATIN 500,000 UNITS/5 ML SUSPENSION PO SCH ×4 (01:20→17:10)
[2020-08-30] MEDS ORDERED: MEROPENEM 1 GM VIAL (RESTRICTED TO ID) IVPB ONE ×3 (02:45→16:41)
[2020-08-30] MEDS ORDERED: DEXTROSE 5%-WATER 100 ML IVPB ONE ×3 (02:45→16:41)
[2020-08-30] MEDS: MEROPENEM 1 GM in DEXTROSE 5%-WATER 100 ML IVPB SCH ×3 (03:46→17:10)
[2020-08-30] MEDS: INSULIN SLIDING SCALE (NOVOLOG) 1 VIAL SQ SCH ×4 (06:13→22:08)
[2020-08-30] MEDS: FAMOTIDINE 20 MG TABLET PO SCH (07:46)
[2020-08-30] MEDS: TAMSULOSIN HCL 0.4 MG CAP PO SCH (09:35)
[2020-08-30] MEDS: CINACALCET HCL 30 MG TAB (FP) PO SCH (09:35)
[2020-08-30] MEDS: AMINO ACIDS/PROTEIN HYDROLYS 30 ML LIQUID.PKT PO SCH (09:35)
[2020-08-30] MEDS: FINASTERIDE 5 MG TABLET (FP) PO SCH (09:35)
[2020-08-30] MEDS: ASPIRIN 81 MG CHEWABLE TABLETS PO SCH (09:35)
[2020-08-30] MEDS: TACROLIMUS ANHYDROUS 1 MG CAPSULE PO SCH ×2 (09:36→22:09)
[2020-08-30] MEDS ORDERED: PT OWN MED DRAWER 7, Y5N ONE (22:01)
[2020-08-30] MEDS: MELATONIN 1 MG TABLET PO SCH (22:09)
[2020-08-30] MEDS: ATORVASTATIN CA 10 MG TABLET (FP) PO SCH (22:09)
[2020-08-31] MEDS: NYSTATIN 500,000 UNITS/5 ML SUSPENSION PO SCH ×4 (01:02→18:18)
[2020-08-31] MEDS ORDERED: MEROPENEM 1 GM VIAL (RESTRICTED TO ID) IVPB ONE ×2 (02:04→10:14)
[2020-08-31] MEDS ORDERED: DEXTROSE 5%-WATER 100 ML IVPB ONE ×2 (02:05→10:14)
[2020-08-31] MEDS: MEROPENEM 1 GM in DEXTROSE 5%-WATER 100 ML IVPB SCH ×2 (02:10→10:27)
[2020-08-31] MEDS: FAMOTIDINE 20 MG TABLET PO SCH (07:01)
[2020-08-31] MEDS: INSULIN SLIDING SCALE (NOVOLOG) 1 VIAL SQ SCH ×4 (07:01→22:25)
[2020-08-31 07:24] LABS: BASO % 0.2 % (0-2.0); EOS % 3.2 % (0-4.5); HEMATOCRIT 26.9 % (35.4-49); HEMOGLOBIN 8.9 GM/dL (11.7-16.9); LYMPH % 71.6 % (8-40); MCH 29.3 pg (25.7-33.7); MCHC 33.3 g/dl (32.0-35.9); PLATELET COUNT 148 10^3/uL (134-434); RBC 3.05 M/mm3 (4.00-5.60); RDW 18.9 % (11.9-15.9); WHITE BLOOD COUNT 2.3 K/mm3 (4.0-10.0)
[2020-08-31 07:34] LABS: CALCIUM 9.5 mg/dL (8.5-10.1)
[2020-08-31 07:35] LABS: ALBUMIN 2.2 g/dl (3.4-5.0)
[2020-08-31 07:38] LABS: CREATININE 1.2 mg/dL (0.55-1.3)
[2020-08-31 07:40] LABS: BILIRUBIN,TOTAL 0.2 mg/dL (0.2-1); TOT PROT 5.9 g/dl (6.4-8.2)
[2020-08-31] MEDS: AMINO ACIDS/PROTEIN HYDROLYS 30 ML LIQUID.PKT PO SCH (10:27)
[2020-08-31] MEDS: TACROLIMUS ANHYDROUS 1 MG CAPSULE PO SCH ×2 (10:27→22:23)
[2020-08-31] MEDS: TAMSULOSIN HCL 0.4 MG CAP PO SCH (10:28)
[2020-08-31] MEDS: ASPIRIN 81 MG CHEWABLE TABLETS PO SCH (10:28)
[2020-08-31] MEDS: CINACALCET HCL 30 MG TAB (FP) PO SCH (10:28)
[2020-08-31] MEDS: FINASTERIDE 5 MG TABLET (FP) PO SCH (10:28)
[2020-08-31 10:43] LABS: ANISOCYTOSIS 1+; MACROCYTOSIS 0; OVALOCYTE 1+; PLATELET ESTIMATE DECREASED
[2020-08-31] MEDS ORDERED: SODIUM ZIRCONIUM CYCLOSILICATE (LOKELMA) 5 GM PACKET PO ONE (12:44)
[2020-08-31] MEDS ORDERED: SODIUM CHLORIDE 0.45% 1,000 ML IV SCH (12:45)
[2020-08-31] MEDS ORDERED: ERTAPENEM SODIUM 1 GM VIAL ONE (14:04)
[2020-08-31] MEDS ORDERED: SODIUM CHLORIDE 50 ML IVPB ONE (14:04)
[2020-08-31] MEDS: ERTAPENEM SODIUM 1 GM in SODIUM CHLORIDE 50 ML IVPB SCH (14:09)
[2020-08-31] MEDS ORDERED: PT OWN MED DRAWER 7, Y5N ONE (21:59)
[2020-08-31] MEDS: MELATONIN 1 MG TABLET PO SCH (22:22)
[2020-08-31] MEDS: ATORVASTATIN CA 10 MG TABLET (FP) PO SCH (22:22)
[2020-09-01] MEDS: NYSTATIN 500,000 UNITS/5 ML SUSPENSION PO SCH ×4 (01:00→17:27)
[2020-09-01] MEDS: FAMOTIDINE 20 MG TABLET PO SCH (06:36)
[2020-09-01] MEDS: INSULIN SLIDING SCALE (NOVOLOG) 1 VIAL SQ SCH ×4 (06:38→21:01)
[2020-09-01] MEDS ORDERED: PT OWN MED DRAWER 7, Y5N ONE ×2 (09:21→15:36)
[2020-09-01] MEDS: ASPIRIN 81 MG CHEWABLE TABLETS PO SCH (12:21)
[2020-09-01] MEDS: AMINO ACIDS/PROTEIN HYDROLYS 30 ML LIQUID.PKT PO SCH (12:21)
[2020-09-01] MEDS: CINACALCET HCL 30 MG TAB (FP) PO SCH (12:22)
[2020-09-01] MEDS: FINASTERIDE 5 MG TABLET (FP) PO SCH (12:22)
[2020-09-01] MEDS: TAMSULOSIN HCL 0.4 MG CAP PO SCH (12:22)
[2020-09-01] MEDS: TACROLIMUS ANHYDROUS 1 MG CAPSULE PO SCH ×2 (12:23→21:01)
[2020-09-01] MEDS ORDERED: SODIUM CHLORIDE 50 ML IVPB ONE (14:45)
[2020-09-01] MEDS ORDERED: ERTAPENEM SODIUM 1 GM VIAL ONE (14:45)
[2020-09-01] MEDS: ERTAPENEM SODIUM 1 GM in SODIUM CHLORIDE 50 ML IVPB SCH (15:29)
[2020-09-01] MEDS ORDERED: INSULIN (NOVOLOG) ASPART 100 UNITS/ML 10ML VIAL ONE (16:28)
[2020-09-01] MEDS: ATORVASTATIN CA 10 MG TABLET (FP) PO SCH (21:01)
[2020-09-01] MEDS: MELATONIN 1 MG TABLET PO SCH (21:01)
[2020-09-02] MEDS: NYSTATIN 500,000 UNITS/5 ML SUSPENSION PO SCH ×4 (00:23→17:43)
[2020-09-02] MEDS: FAMOTIDINE 20 MG TABLET PO SCH (06:14)
[2020-09-02] MEDS: INSULIN SLIDING SCALE (NOVOLOG) 1 VIAL SQ SCH ×4 (06:14→21:02)
[2020-09-02 07:29] LABS: BASO % 0.3 % (0-2.0); EOS % 2.7 % (0-4.5); HEMATOCRIT 26.6 % (35.4-49); HEMOGLOBIN 8.9 GM/dL (11.7-16.9); LYMPH % 73.5 % (8-40); MCH 29.3 pg (25.7-33.7); MCHC 33.6 g/dl (32.0-35.9); MEAN CELL VOLUME 87.1 fl (80-96); MEAN PLT VOLUME 7.2 fl (7.5-11.1); MONO % 8.4 % (3.8-10.2); NEUT % 15.1 % (42.8-82.8); PLATELET COUNT 218 10^3/uL (134-434); RBC 3.05 M/mm3 (4.00-5.60); RDW 18.8 % (11.9-15.9); WHITE BLOOD COUNT 2.2 K/mm3 (4.0-10.0)
[2020-09-02 07:54] LABS: CALCIUM 9.6 mg/dL (8.5-10.1)
[2020-09-02 07:55] LABS: ALBUMIN 2.3 g/dl (3.4-5.0); BLOOD UREA NITROGEN 24.3 mg/dL (7-18)
[2020-09-02 07:58] LABS: CREATININE 0.9 mg/dL (0.55-1.3)
[2020-09-02 07:59] LABS: BILIRUBIN,TOTAL 0.4 mg/dL (0.2-1); TOT PROT 5.7 g/dl (6.4-8.2)
[2020-09-02 08:56] LABS: ANISOCYTOSIS 0; MACROCYTOSIS 0; PLATELET ESTIMATE NORMAL
[2020-09-02] MEDS ORDERED: PT OWN MED DRAWER 7, Y5N ONE ×2 (09:51→13:37)
[2020-09-02] MEDS: AMINO ACIDS/PROTEIN HYDROLYS 30 ML LIQUID.PKT PO SCH (10:21)
[2020-09-02] MEDS: FINASTERIDE 5 MG TABLET (FP) PO SCH (10:21)
[2020-09-02] MEDS: ASPIRIN 81 MG CHEWABLE TABLETS PO SCH (10:21)
[2020-09-02] MEDS: CINACALCET HCL 30 MG TAB (FP) PO SCH (10:21)
[2020-09-02] MEDS: TAMSULOSIN HCL 0.4 MG CAP PO SCH (10:22)
[2020-09-02] MEDS: TACROLIMUS ANHYDROUS 1 MG CAPSULE PO SCH ×2 (10:22→21:03)
[2020-09-02] MEDS ORDERED: INSULIN (NOVOLOG) ASPART 100 UNITS/ML 10ML VIAL ONE ×2 (12:00→20:41)
[2020-09-02] MEDS ORDERED: ERTAPENEM SODIUM 1 GM VIAL ONE (14:36)
[2020-09-02] MEDS ORDERED: SODIUM CHLORIDE 50 ML IVPB ONE (14:36)
[2020-09-02] MEDS: ERTAPENEM SODIUM 1 GM in SODIUM CHLORIDE 50 ML IVPB SCH (14:42)
[2020-09-02] MEDS: SODIUM ZIRCONIUM CYCLOSILICATE (LOKELMA) 5 GM PACKET PO SCH (17:43)
[2020-09-02] MEDS: ATORVASTATIN CA 10 MG TABLET (FP) PO SCH (21:03)
[2020-09-02] MEDS: MELATONIN 1 MG TABLET PO SCH (21:03)
[2020-09-03] MEDS: NYSTATIN 500,000 UNITS/5 ML SUSPENSION PO SCH ×4 (00:14→17:06)
[2020-09-03] MEDS: INSULIN SLIDING SCALE (NOVOLOG) 1 VIAL SQ SCH ×4 (06:19→21:47)
[2020-09-03] MEDS: FAMOTIDINE 20 MG TABLET PO SCH (06:19)
[2020-09-03] MEDS ORDERED: INSULIN (NOVOLOG) ASPART 100 UNITS/ML 10ML VIAL ONE ×2 (08:25→21:25)
[2020-09-03 08:38] LABS: ALBUMIN 2.2 g/dl (3.4-5.0); BLOOD UREA NITROGEN 23.6 mg/dL (7-18); CALCIUM 9.5 mg/dL (8.5-10.1)
[2020-09-03 08:42] LABS: CREATININE 0.9 mg/dL (0.55-1.3)
[2020-09-03 08:43] LABS: BILIRUBIN,TOTAL 0.2 mg/dL (0.2-1); TOT PROT 5.6 g/dl (6.4-8.2)
[2020-09-03] MEDS: AMINO ACIDS/PROTEIN HYDROLYS 30 ML LIQUID.PKT PO SCH (09:04)
[2020-09-03] MEDS: SODIUM ZIRCONIUM CYCLOSILICATE (LOKELMA) 5 GM PACKET PO SCH (09:05)
[2020-09-03] MEDS: ASPIRIN 81 MG CHEWABLE TABLETS PO SCH (09:07)
[2020-09-03] MEDS: TAMSULOSIN HCL 0.4 MG CAP PO SCH (09:07)
[2020-09-03] MEDS: TACROLIMUS ANHYDROUS 1 MG CAPSULE PO SCH ×2 (09:08→21:39)
[2020-09-03] MEDS: FINASTERIDE 5 MG TABLET (FP) PO SCH (09:08)
[2020-09-03] MEDS: CINACALCET HCL 30 MG TAB (FP) PO SCH (09:09)
[2020-09-03] MEDS ORDERED: SODIUM CHLORIDE 50 ML IVPB ONE (11:23)
[2020-09-03] MEDS ORDERED: ERTAPENEM SODIUM 1 GM VIAL ONE (11:23)
[2020-09-03] MEDS: COLLAGENASE CLOSTRIDIUM HIST. 30 GRAMS TUBE TP SCH (11:29)
[2020-09-03] MEDS ORDERED: SODIUM CHLORIDE 0.45% 1,000 ML IV SCH (11:45)
[2020-09-03] MEDS ORDERED: SODIUM BICARBONATE 8.4% 50 MEQ/50 ML VIAL IVPUSH ONE (11:45)
[2020-09-03] MEDS: ERTAPENEM SODIUM 1 GM in SODIUM CHLORIDE 50 ML IVPB SCH (15:20)
[2020-09-03] MEDS ORDERED: SODIUM ZIRCONIUM CYCLOSILICATE (LOKELMA) 5 GM PACKET PO ONE (20:00)
[2020-09-03] MEDS: ACETAMINOPHEN 325 MG TABLET (FP) PO PRN (20:49)
[2020-09-03] MEDS ORDERED: PT OWN MED DRAWER 7, Y5N ONE (21:25)
[2020-09-03] MEDS: MELATONIN 1 MG TABLET PO SCH (21:39)
[2020-09-03] MEDS: ATORVASTATIN CA 10 MG TABLET (FP) PO SCH (21:39)
[2020-09-04] MEDS: NYSTATIN 500,000 UNITS/5 ML SUSPENSION PO SCH ×5 (01:17→17:53)
[2020-09-04] MEDS: FAMOTIDINE 20 MG TABLET PO SCH (06:59)
[2020-09-04] MEDS: INSULIN SLIDING SCALE (NOVOLOG) 1 VIAL SQ SCH ×4 (07:02→22:49)
[2020-09-04] MEDS ORDERED: PT OWN MED DRAWER 7, Y5N ONE ×2 (10:03→20:02)
[2020-09-04] MEDS: FINASTERIDE 5 MG TABLET (FP) PO SCH (10:09)
[2020-09-04] MEDS: CINACALCET HCL 30 MG TAB (FP) PO SCH (10:10)
[2020-09-04] MEDS: AMINO ACIDS/PROTEIN HYDROLYS 30 ML LIQUID.PKT PO SCH (10:10)
[2020-09-04] MEDS: TAMSULOSIN HCL 0.4 MG CAP PO SCH (10:11)
[2020-09-04] MEDS: TACROLIMUS ANHYDROUS 1 MG CAPSULE PO SCH ×3 (10:11→23:04)
[2020-09-04] MEDS: ASPIRIN 81 MG CHEWABLE TABLETS PO SCH (10:11)
[2020-09-04] MEDS: COLLAGENASE CLOSTRIDIUM HIST. 30 GRAMS TUBE TP SCH (10:12)
[2020-09-04] MEDS ORDERED: INSULIN (NOVOLOG) ASPART 100 UNITS/ML 10ML VIAL ONE (12:15)
[2020-09-04 12:39] LABS: HEMATOCRIT 25.1 % (35.4-49); HEMOGLOBIN 8.5 GM/dL (11.7-16.9); MCH 29.7 pg (25.7-33.7); MEAN CELL VOLUME 87.5 fl (80-96); MEAN PLT VOLUME 7.1 fl (7.5-11.1); PLATELET COUNT 285 10^3/uL (134-434); RBC 2.87 M/mm3 (4.00-5.60); RDW 18.9 % (11.9-15.9); WHITE BLOOD COUNT 2.2 K/mm3 (4.0-10.0)
[2020-09-04 13:09] LABS: BLOOD UREA NITROGEN 26.8 mg/dL (7-18); CALCIUM 9.2 mg/dL (8.5-10.1)
[2020-09-04] MEDS ORDERED: ERTAPENEM SODIUM 1 GM VIAL ONE (15:44)
[2020-09-04] MEDS ORDERED: SODIUM CHLORIDE 50 ML IVPB ONE (15:44)
[2020-09-04] MEDS: ERTAPENEM SODIUM 1 GM in SODIUM CHLORIDE 50 ML IVPB SCH (15:48)
[2020-09-04] MEDS: SODIUM ZIRCONIUM CYCLOSILICATE (LOKELMA) 5 GM PACKET PO SCH (17:20)
[2020-09-04] MEDS: ATORVASTATIN CA 10 MG TABLET (FP) PO SCH (22:49)
[2020-09-04] MEDS: MELATONIN 1 MG TABLET PO SCH (23:03)
[2020-09-05] MEDS: NYSTATIN 500,000 UNITS/5 ML SUSPENSION PO SCH ×5 (01:41→23:02)
[2020-09-05] MEDS ORDERED: MELATONIN 1 MG TABLET PO ONE (02:30)
[2020-09-05] MEDS: ACETAMINOPHEN 325 MG TABLET (FP) PO PRN ×2 (03:14→21:05)
[2020-09-05] MEDS: INSULIN SLIDING SCALE (NOVOLOG) 1 VIAL SQ SCH ×4 (06:11→21:07)
[2020-09-05] MEDS: FAMOTIDINE 20 MG TABLET PO SCH (07:05)
[2020-09-05] MEDS: AMINO ACIDS/PROTEIN HYDROLYS 30 ML LIQUID.PKT PO SCH (08:20)
[2020-09-05] MEDS: TAMSULOSIN HCL 0.4 MG CAP PO SCH (08:20)
[2020-09-05] MEDS: ASPIRIN 81 MG CHEWABLE TABLETS PO SCH (09:17)
[2020-09-05] MEDS: TACROLIMUS ANHYDROUS 1 MG CAPSULE PO SCH ×2 (09:17→21:06)
[2020-09-05] MEDS: CINACALCET HCL 30 MG TAB (FP) PO SCH (09:17)
[2020-09-05] MEDS: COLLAGENASE CLOSTRIDIUM HIST. 30 GRAMS TUBE TP SCH (09:17)
[2020-09-05] MEDS: FINASTERIDE 5 MG TABLET (FP) PO SCH (09:17)
[2020-09-05] MEDS: SODIUM ZIRCONIUM CYCLOSILICATE (LOKELMA) 5 GM PACKET PO SCH (11:25)
[2020-09-05] MEDS ORDERED: ERTAPENEM SODIUM 1 GM VIAL ONE (11:53)
[2020-09-05] MEDS ORDERED: SODIUM CHLORIDE 50 ML IVPB ONE (11:54)
[2020-09-05] MEDS: ERTAPENEM SODIUM 1 GM in SODIUM CHLORIDE 50 ML IVPB SCH (12:59)
[2020-09-05 13:21] LABS: BASO % 0.5 % (0-2.0); HEMATOCRIT 25.2 % (35.4-49); HEMOGLOBIN 8.5 GM/dL (11.7-16.9); LYMPH % 64.4 % (8-40); MCH 29.1 pg (25.7-33.7); MCHC 33.8 g/dl (32.0-35.9); MEAN CELL VOLUME 86.1 fl (80-96); MEAN PLT VOLUME 6.7 fl (7.5-11.1); MONO % 14.3 % (3.8-10.2); NEUT % 19.8 % (42.8-82.8); PLATELET COUNT 312 10^3/uL (134-434); RBC 2.93 M/mm3 (4.00-5.60); RDW 19.2 % (11.9-15.9)
[2020-09-05 13:48] LABS: CREATININE 1.1 mg/dL (0.55-1.3)
[2020-09-05 13:49] LABS: BILIRUBIN,TOTAL 0.2 mg/dL (0.2-1); TOT PROT 6.3 g/dl (6.4-8.2)
[2020-09-05 13:55] LABS: ALBUMIN 2.6 g/dl (3.4-5.0)
[2020-09-05 14:01] LABS: ANISOCYTOSIS 1+; MACROCYTOSIS 0; OVALOCYTE 2+; PLATELET ESTIMATE NORMAL
[2020-09-05] MEDS ORDERED: INSULIN (NOVOLOG) ASPART 100 UNITS/ML 10ML VIAL ONE (20:19)
[2020-09-05] MEDS: MELATONIN 1 MG TABLET PO SCH (21:04)
[2020-09-05] MEDS: ATORVASTATIN CA 10 MG TABLET (FP) PO SCH (21:05)
[2020-09-06] MEDS: NYSTATIN 500,000 UNITS/5 ML SUSPENSION PO SCH ×3 (06:05→17:20)
[2020-09-06] MEDS: INSULIN SLIDING SCALE (NOVOLOG) 1 VIAL SQ SCH ×4 (06:05→22:04)
[2020-09-06] MEDS: FAMOTIDINE 20 MG TABLET PO SCH (06:05)
[2020-09-06] MEDS: AMINO ACIDS/PROTEIN HYDROLYS 30 ML LIQUID.PKT PO SCH (09:58)
[2020-09-06] MEDS: ASPIRIN 81 MG CHEWABLE TABLETS PO SCH (09:58)
[2020-09-06] MEDS: TAMSULOSIN HCL 0.4 MG CAP PO SCH (09:58)
[2020-09-06] MEDS: TACROLIMUS ANHYDROUS 1 MG CAPSULE PO SCH ×2 (09:59→22:05)
[2020-09-06] MEDS: FINASTERIDE 5 MG TABLET (FP) PO SCH (09:59)
[2020-09-06] MEDS: CINACALCET HCL 30 MG TAB (FP) PO SCH (09:59)
[2020-09-06] MEDS: COLLAGENASE CLOSTRIDIUM HIST. 30 GRAMS TUBE TP SCH (10:02)
[2020-09-06] MEDS ORDERED: PT OWN MED DRAWER 7, Y5N ONE (21:50)
[2020-09-06] MEDS: ACETAMINOPHEN 325 MG TABLET (FP) PO PRN (22:05)
[2020-09-06] MEDS: ATORVASTATIN CA 10 MG TABLET (FP) PO SCH (22:05)
[2020-09-06] MEDS: MELATONIN 1 MG TABLET PO SCH (22:05)
[2020-09-07] MEDS: NYSTATIN 500,000 UNITS/5 ML SUSPENSION PO SCH ×4 (01:42→17:46)
[2020-09-07] MEDS: FAMOTIDINE 20 MG TABLET PO SCH (06:45)
[2020-09-07] MEDS: INSULIN SLIDING SCALE (NOVOLOG) 1 VIAL SQ SCH ×4 (06:50→21:01)
[2020-09-07] MEDS ORDERED: INSULIN (LEVEMIR) 100 UNITS/ML UNITS SQ ONE (10:05)
[2020-09-07] MEDS ORDERED: INSULIN (NOVOLOG) ASPART 100 UNITS/ML 10ML VIAL ONE (10:05)
[2020-09-07] MEDS: AMINO ACIDS/PROTEIN HYDROLYS 30 ML LIQUID.PKT PO SCH (11:04)
[2020-09-07] MEDS: CINACALCET HCL 30 MG TAB (FP) PO SCH (11:05)
[2020-09-07] MEDS: TAMSULOSIN HCL 0.4 MG CAP PO SCH (11:05)
[2020-09-07] MEDS: FINASTERIDE 5 MG TABLET (FP) PO SCH (11:05)
[2020-09-07] MEDS: ASPIRIN 81 MG CHEWABLE TABLETS PO SCH (11:05)
[2020-09-07] MEDS: COLLAGENASE CLOSTRIDIUM HIST. 30 GRAMS TUBE TP SCH (11:08)
[2020-09-07] MEDS: TACROLIMUS ANHYDROUS 1 MG CAPSULE PO SCH ×2 (11:20→20:59)
[2020-09-07 12:10] LABS: HEMOGLOBIN 8.8 GM/dL (11.7-16.9); MCH 29.5 pg (25.7-33.7); MCHC 33.8 g/dl (32.0-35.9); MEAN CELL VOLUME 87.3 fl (80-96); MEAN PLT VOLUME 6.7 fl (7.5-11.1); PLATELET COUNT 312 10^3/uL (134-434); RBC 2.97 M/mm3 (4.00-5.60); RDW 18.9 % (11.9-15.9)
[2020-09-07 12:32] LABS: ALBUMIN 2.6 g/dl (3.4-5.0); BLOOD UREA NITROGEN 24.3 mg/dL (7-18)
[2020-09-07 12:35] LABS: CREATININE 1.1 mg/dL (0.55-1.3)
[2020-09-07 12:37] LABS: BILIRUBIN,TOTAL 0.3 mg/dL (0.2-1); TOT PROT 6.1 g/dl (6.4-8.2)
[2020-09-07] MEDS: ACETAMINOPHEN 325 MG TABLET (FP) PO PRN (20:59)
[2020-09-07] MEDS: MELATONIN 1 MG TABLET PO SCH (21:01)
[2020-09-07] MEDS: ATORVASTATIN CA 10 MG TABLET (FP) PO SCH (21:01)
[2020-09-08] MEDS: NYSTATIN 500,000 UNITS/5 ML SUSPENSION PO SCH ×4 (01:12→17:23)
[2020-09-08] MEDS: FAMOTIDINE 20 MG TABLET PO SCH (06:06)
[2020-09-08] MEDS: INSULIN SLIDING SCALE (NOVOLOG) 1 VIAL SQ SCH ×4 (06:08→21:31)
[2020-09-08 07:37] LABS: BASO % 0.2 % (0-2.0); EOS % 0.3 % (0-4.5); HEMATOCRIT 25.5 % (35.4-49); HEMOGLOBIN 8.7 GM/dL (11.7-16.9); LYMPH % 73.4 % (8-40); MCH 29.2 pg (25.7-33.7); MCHC 33.9 g/dl (32.0-35.9); MEAN CELL VOLUME 86.1 fl (80-96); MEAN PLT VOLUME 6.7 fl (7.5-11.1); MONO % 14.5 % (3.8-10.2); NEUT % 11.6 % (42.8-82.8); PLATELET COUNT 296 10^3/uL (134-434); RBC 2.96 M/mm3 (4.00-5.60); RDW 19.6 % (11.9-15.9); WHITE BLOOD COUNT 2.6 K/mm3 (4.0-10.0)
[2020-09-08 08:02] LABS: ALBUMIN 2.5 g/dl (3.4-5.0); BLOOD UREA NITROGEN 27.2 mg/dL (7-18)
[2020-09-08 08:03] LABS: BILIRUBIN,TOTAL 0.3 mg/dL (0.2-1); TOT PROT 6.1 g/dl (6.4-8.2)
[2020-09-08 08:05] LABS: CREATININE 1.2 mg/dL (0.55-1.3)
[2020-09-08 09:47] LABS: ANISOCYTOSIS 1+; MACROCYTOSIS 0; OVALOCYTE 1+; PLATELET ESTIMATE NORMAL
[2020-09-08] MEDS: COLLAGENASE CLOSTRIDIUM HIST. 30 GRAMS TUBE TP SCH ×2 (09:54→14:52)
[2020-09-08] MEDS: AMINO ACIDS/PROTEIN HYDROLYS 30 ML LIQUID.PKT PO SCH (09:54)
[2020-09-08] MEDS: TAMSULOSIN HCL 0.4 MG CAP PO SCH (09:55)
[2020-09-08] MEDS: TACROLIMUS ANHYDROUS 1 MG CAPSULE PO SCH ×2 (09:55→21:29)
[2020-09-08] MEDS: CINACALCET HCL 30 MG TAB (FP) PO SCH (09:55)
[2020-09-08] MEDS: ASPIRIN 81 MG CHEWABLE TABLETS PO SCH (09:55)
[2020-09-08] MEDS: FINASTERIDE 5 MG TABLET (FP) PO SCH (09:55)
[2020-09-08] MEDS ORDERED: SODIUM CHLORIDE 500 ML IV SCH (15:00)
[2020-09-08 18:32] LABS: INR 1.09 (0.83-1.09); PROTHROMBIN TIME (PATIENT) 13.1 SEC (9.7-13.0)
[2020-09-08 18:35] LABS: ACTIVATED PTT 33.6 SECONDS (25.2-36.5)
[2020-09-08] MEDS: ACETAMINOPHEN 325 MG TABLET (FP) PO PRN (21:27)
[2020-09-08] MEDS: MELATONIN 1 MG TABLET PO SCH (21:29)
[2020-09-08] MEDS: ATORVASTATIN CA 10 MG TABLET (FP) PO SCH (21:29)
[2020-09-09] MEDS: NYSTATIN 500,000 UNITS/5 ML SUSPENSION PO SCH ×3 (02:16→12:19)
[2020-09-09] MEDS: INSULIN SLIDING SCALE (NOVOLOG) 1 VIAL SQ SCH ×2 (06:05→12:07)
[2020-09-09] MEDS: FAMOTIDINE 20 MG TABLET PO SCH (06:06)
[2020-09-09] MEDS: CINACALCET HCL 30 MG TAB (FP) PO SCH (10:02)
[2020-09-09] MEDS: FINASTERIDE 5 MG TABLET (FP) PO SCH (10:02)
[2020-09-09] MEDS: AMINO ACIDS/PROTEIN HYDROLYS 30 ML LIQUID.PKT PO SCH (10:02)
[2020-09-09] MEDS: TACROLIMUS ANHYDROUS 1 MG CAPSULE PO SCH (10:02)
[2020-09-09] MEDS: ASPIRIN 81 MG CHEWABLE TABLETS PO SCH (10:03)
[2020-09-09] MEDS: TAMSULOSIN HCL 0.4 MG CAP PO SCH (10:03)
[2020-09-09] MEDS: COLLAGENASE CLOSTRIDIUM HIST. 30 GRAMS TUBE TP SCH (10:03)
[2020-09-09 14:06] VITALS: BP 156/75; PULSE 79; TEMP 97.6
[2020-09-09] MEDS ORDERED: azaTHIOprine 50 MG TABLET PO SCH (14:30)
== END 2020-09-09 15:30 | disposition home health service (06) | DRG 808 ==
LOC: JER 15:26 → JERBED 22:27 → J7W 08-27 16:50
PROVIDERS: ADMIT Internal Medicine; ATTEND Family Medicine
PROC: 07DR3ZX Extraction of Iliac Bone Marrow, Percutaneous Approach, Diagnostic (ICD-10-PCS; principal; 2020-09-08)
DX: D70.8 Other neutropenia (principal); E43 Unspecified severe protein-calorie malnutrition; F02.81 Dementia in other diseases classified elsewhere, unspecified severity, with behavioral disturbance; Z68.1 Body mass index [BMI] 19.9 or less, adult; N39.0 Urinary tract infection, site not specified; R64 Cachexia; N17.9 Acute kidney failure, unspecified; Z94.0 Kidney transplant status; E87.0 Hyperosmolality and hypernatremia; M86.671 Other chronic osteomyelitis, right ankle and foot; T83.89XA Other specified complication of genitourinary prosthetic devices, implants and grafts, initial encounter; E78.5 Hyperlipidemia, unspecified; I25.10 Atherosclerotic heart disease of native coronary artery without angina pectoris; G30.9 Alzheimer's disease, unspecified; E11.51 Type 2 diabetes mellitus with diabetic peripheral angiopathy without gangrene; R62.7 Adult failure to thrive; B96.1 Klebsiella pneumoniae [K. pneumoniae] as the cause of diseases classified elsewhere; I12.9 Hypertensive chronic kidney disease with stage 1 through stage 4 chronic kidney disease, or unspecified chronic kidney disease; E11.22 Type 2 diabetes mellitus with diabetic chronic kidney disease; N18.9 Chronic kidney disease, unspecified; H54.40 Blindness, one eye, unspecified eye; D70.9 Neutropenia, unspecified; R50.81 Fever presenting with conditions classified elsewhere; M85.88 Other specified disorders of bone density and structure, other site; E83.52 Hypercalcemia; D69.6 Thrombocytopenia, unspecified; R33.9 Retention of urine, unspecified; D64.9 Anemia, unspecified; D61.818 Other pancytopenia; T45.1X5A Adverse effect of antineoplastic and immunosuppressive drugs, initial encounter; Z95.5 Presence of coronary angioplasty implant and graft; Z86.73 Personal history of transient ischemic attack (TIA), and cerebral infarction without residual deficits; Y84.8 Other medical procedures as the cause of abnormal reaction of the patient, or of later complication, without mention of misadventure at the time of the procedure
CPT/HCPCS: 20225; 36415; 71045-TC-FY; 80048; 80053; 80197; 81003; 82550; 82962; 83036; 83605; 83735; 84443; 84484; 85025; 85027; 85610; 85730; 87040; 87086; 87186; 87899; 88300-TC; 88305-TC; 88311-TC; 93005; 93010; 93306-TC; 97116-GP; 97161-GP; 99285-25; C9803; U0003; U0005

== ENCOUNTER 2020-10-06 10:47 | Inpatient (IN) | payer OTHER ==
[2020-10-06] MEDS ORDERED: PIPERACILLIN/TAZOB 4.5 GM 4.5 GM in DEXTROSE 5%-WATER 100 ML IVPB ONE (11:52)
[2020-10-06] MEDS ORDERED: PIPERACILLIN/TAZOB 2.25 GM 2.25 GM in DEXTROSE 5%-WATER - 50 ML IVPB ONE (11:56)
[2020-10-06] MEDS ORDERED: PIPERACILLIN/TAZOB 2.25 GM 2.25 GM/50 ML BAG IVPB ONE (12:13)
[2020-10-06 13:17] LABS: HEMATOCRIT 25.9 % (35.4-49); HEMOGLOBIN 8.6 GM/dL (11.7-16.9); MCH 28.7 pg (25.7-33.7); MCHC 33.3 g/dl (32.0-35.9); MEAN CELL VOLUME 86.3 fl (80-96); MEAN PLT VOLUME 7.2 fl (7.5-11.1); PLATELET COUNT 83 10^3/uL (134-434); RDW 18.3 % (11.9-15.9)
[2020-10-06 13:21] LABS: EPI CELLS 11 /uL (0-25.1); HYALINE CASTS 13 /uL (0-3.1); URINE APPEARANCE TURBID; URINE BACTERIA >9,000 /uL (0-1359); URINE BILIRUBIN NEGATIVE (NEGATIVE); URINE COLOR YELLOW; URINE GLUCOSE (UA) NEGATIVE (NEGATIVE); URINE KETONE NEGATIVE (NEGATIVE); URINE LEUK ESTERASE 2+ (NEGATIVE); URINE NITRITE NEGATIVE (NEGATIVE); URINE PROTEIN 1+ (NEGATIVE); URINE RBC 15 /uL (0-23.9); URINE WBC 401 /uL (0-25.8)
[2020-10-06 13:24] LABS: WHITE BLOOD COUNT 1.5 K/mm3 (4.0-10.0)
[2020-10-06 13:39] LABS: CALCIUM 9.2 mg/dL (8.5-10.1)
[2020-10-06 13:40] LABS: ALBUMIN 3.1 g/dl (3.4-5.0)
[2020-10-06 13:43] LABS: CREATININE 1.1 mg/dL (0.55-1.3)
[2020-10-06 13:48] LABS: TOT PROT 7.8 g/dl (6.4-8.2)
[2020-10-06 14:34] LABS: ANISOCYTOSIS 1+; MACROCYTOSIS 1+; PLATELET ESTIMATE DECREASED
[2020-10-06 14:51] LABS: HEMATOCRIT 25.8 % (35.4-49); HEMOGLOBIN 8.4 GM/dL (11.7-16.9); MCH 28.6 pg (25.7-33.7); MCHC 32.5 g/dl (32.0-35.9); MEAN PLT VOLUME 6.4 fl (7.5-11.1); PLATELET COUNT 70 10^3/uL (134-434); RBC 2.93 M/mm3 (4.00-5.60); RDW 18.1 % (11.9-15.9)
[2020-10-06 15:04] LABS: WHITE BLOOD COUNT 1.4 K/mm3 (4.0-10.0)
[2020-10-06 15:24] LABS: ANISOCYTOSIS 1+; MACROCYTOSIS 1+; PLATELET ESTIMATE DECREASED
[2020-10-06] MEDS ORDERED: INSULIN SLIDING SCALE (NOVOLOG) 1 VIAL SQ SCH (16:30)
[2020-10-06] MEDS: INSULIN SLIDING SCALE (NOVOLOG) 1 VIAL SQ SCH ×2 (17:55→21:52)
[2020-10-07] MEDS: INSULIN SLIDING SCALE (NOVOLOG) 1 VIAL SQ SCH ×4 (06:05→21:29)
[2020-10-07] MEDS ORDERED: PIPERACILLIN/TAZOB 2.25 GM 2.25 GM in DEXTROSE 5%-WATER - 50 ML IVPB SCH ×2 (10:15→10:30)
[2020-10-07] MEDS ORDERED: PIPERACILLIN/TAZOBACTAM 2.25 GM VIAL IVPB ONE (10:58)
[2020-10-07] MEDS ORDERED: DEXTROSE 5%-WATER - 50 ML IVPB ONE (10:58)
[2020-10-07] MEDS ORDERED: PT OWN MED DRAWER 7, Y5N ONE ×3 (14:31→20:47)
[2020-10-07] MEDS ORDERED: azaTHIOprine 50 MG TABLET PO SCH ×2 (15:30→16:44)
[2020-10-07] MEDS ORDERED: TACROLIMUS 5 MG PO SCH (15:30)
[2020-10-07] MEDS ORDERED: PATIENT'S OWN MEDICATION (NON-FORMULARY) (Escitalopram Oxalate [Escitalopram Oxalate] 5 MG PO SCH (15:30)
[2020-10-07] MEDS: FINASTERIDE 5 MG TABLET (FP) PO SCH (15:55)
[2020-10-07] MEDS: TAMSULOSIN HCL 0.4 MG CAP PO SCH (15:55)
[2020-10-07] MEDS: predniSONE 5 MG TABLET (UD) PO SCH (15:55)
[2020-10-07] MEDS: amLODIPine BESYLATE 5 MG TABLET (FP) PO SCH (15:55)
[2020-10-07] MEDS: ENTECAVIR 0.5 MG TABLET PO SCH (16:37)
[2020-10-07] MEDS: CINACALCET HCL 30 MG TAB (FP) PO SCH (16:37)
[2020-10-07] MEDS ORDERED: PIPERACILLIN/TAZOBACTAM 3.375 GM VIAL IVPB ONE (16:52)
[2020-10-07] MEDS: PIPERACILLIN/TAZOB 3.375 GM 3.375 GM in DEXTROSE 5%-WATER - 50 ML IVPB SCH (17:01)
[2020-10-07] MEDS: SODIUM BICARBONATE 650 MG TABLET PO SCH (21:29)
[2020-10-07] MEDS: ATORVASTATIN CA 10 MG TABLET (FP) PO SCH (21:29)
[2020-10-07] MEDS: TACROLIMUS ANHYDROUS 1 MG CAPSULE PO SCH (21:30)
[2020-10-08] MEDS ORDERED: PIPERACILLIN/TAZOBACTAM 3.375 GM VIAL IVPB ONE ×2 (00:29→09:54)
[2020-10-08] MEDS ORDERED: DEXTROSE 5%-WATER - 50 ML IVPB ONE ×2 (00:30→09:54)
[2020-10-08] MEDS: PIPERACILLIN/TAZOB 3.375 GM 3.375 GM in DEXTROSE 5%-WATER - 50 ML IVPB SCH ×2 (01:02→10:06)
[2020-10-08] MEDS: INSULIN SLIDING SCALE (NOVOLOG) 1 VIAL SQ SCH ×4 (06:42→21:56)
[2020-10-08 08:49] LABS: HEMATOCRIT 22.5 % (35.4-49); HEMOGLOBIN 7.5 GM/dL (11.7-16.9); MCH 28.6 pg (25.7-33.7); MCHC 33.4 g/dl (32.0-35.9); MEAN CELL VOLUME 85.5 fl (80-96); MEAN PLT VOLUME 6.4 fl (7.5-11.1); PLATELET COUNT 50 10^3/uL (134-434); RBC 2.63 M/mm3 (4.00-5.60)
[2020-10-08 09:10] LABS: WHITE BLOOD COUNT 1.2 K/mm3 (4.0-10.0)
[2020-10-08 09:16] LABS: CHLORIDE 101 mmol/L (98-107); SODIUM 134 mmol/L (136-145)
[2020-10-08 09:18] LABS: ANION GAP 5 MMOL/L (8-16); BLOOD UREA NITROGEN 25.3 mg/dL (7-18); CALCIUM 9.2 mg/dL (8.5-10.1); CO2 28 mmol/L (21-32); GLUCOSE,RANDOM 130 mg/dL (74-106); MAGNESIUM 1.4 mg/dL (1.8-2.4)
[2020-10-08 09:21] LABS: CREATININE 0.8 mg/dL (0.55-1.3); SGOT/AST 7 U/L (15-37); SGPT/ALT 16 U/L (13-61)
[2020-10-08 09:22] LABS: PHOSPHOROUS 2.7 mg/dL (2.5-4.9)
[2020-10-08 09:23] LABS: BILIRUBIN,TOTAL 0.7 mg/dL (0.2-1)
[2020-10-08 09:24] LABS: ALK PHOS 86 U/L (45-117)
[2020-10-08 09:26] LABS: TOT PROT 6.4 g/dl (6.4-8.2)
[2020-10-08 09:34] LABS: ALBUMIN 2.6 g/dl (3.4-5.0)
[2020-10-08] MEDS ORDERED: PT OWN MED DRAWER 7, Y5N ONE ×2 (09:54→20:32)
[2020-10-08] MEDS: ENTECAVIR 0.5 MG TABLET PO SCH (10:07)
[2020-10-08] MEDS: predniSONE 5 MG TABLET (UD) PO SCH (10:07)
[2020-10-08] MEDS: FINASTERIDE 5 MG TABLET (FP) PO SCH (10:07)
[2020-10-08] MEDS: amLODIPine BESYLATE 5 MG TABLET (FP) PO SCH (10:07)
[2020-10-08] MEDS: TAMSULOSIN HCL 0.4 MG CAP PO SCH (10:07)
[2020-10-08] MEDS: CINACALCET HCL 30 MG TAB (FP) PO SCH (10:07)
[2020-10-08] MEDS: ESCITALOPRAM OXALATE 10 MG TABLET PO SCH (10:07)
[2020-10-08] MEDS: SODIUM BICARBONATE 650 MG TABLET PO SCH ×2 (10:08→21:56)
[2020-10-08] MEDS: TACROLIMUS ANHYDROUS 1 MG CAPSULE PO SCH ×2 (10:21→21:56)
[2020-10-08] MEDS ORDERED: ACETAMINOPHEN 1000 MG/100 ML VIAL (NON FORMULARY) IVPB PRN (10:59)
[2020-10-08] MEDS ORDERED: MAGNESIUM 2GM/50ML STERILE WATER IVPB IVPB ONE (11:54)
[2020-10-08] MEDS ORDERED: INSULIN (NOVOLOG) ASPART 100 UNITS/ML 10ML VIAL ONE (12:01)
[2020-10-08 12:30] LABS: MACROCYTOSIS 0; OVALOCYTE 1+; PLATELET ESTIMATE DECREASED; TEAR DROP CELLS 1+
[2020-10-08 13:16] LABS: ANISOCYTOSIS 2+
[2020-10-08] MEDS ORDERED: MEROPENEM 1 GM VIAL (RESTRICTED TO ID) IVPB ONE ×2 (13:58→17:59)
[2020-10-08] MEDS ORDERED: DEXTROSE 5%-WATER 100 ML IVPB ONE ×2 (13:59→17:59)
[2020-10-08] MEDS: MEROPENEM 1 GM in DEXTROSE 5%-WATER 100 ML IVPB SCH ×2 (14:02→18:18)
[2020-10-08] MEDS: ATORVASTATIN CA 10 MG TABLET (FP) PO SCH (21:56)
[2020-10-09] MEDS ORDERED: MEROPENEM 1 GM VIAL (RESTRICTED TO ID) IVPB ONE ×2 (00:38→09:11)
[2020-10-09] MEDS ORDERED: DEXTROSE 5%-WATER 100 ML IVPB ONE ×2 (00:38→09:12)
[2020-10-09] MEDS: MEROPENEM 1 GM in DEXTROSE 5%-WATER 100 ML IVPB SCH ×3 (01:15→17:30)
[2020-10-09] MEDS: INSULIN SLIDING SCALE (NOVOLOG) 1 VIAL SQ SCH ×4 (06:46→21:33)
[2020-10-09 08:58] LABS: HEMOGLOBIN 8.1 GM/dL (11.7-16.9); MCH 28.9 pg (25.7-33.7); MCHC 33.7 g/dl (32.0-35.9); MEAN CELL VOLUME 85.8 fl (80-96); MEAN PLT VOLUME 6.8 fl (7.5-11.1); PLATELET COUNT 56 10^3/uL (134-434); RBC 2.79 M/mm3 (4.00-5.60); RDW 18.5 % (11.9-15.9)
[2020-10-09 09:17] LABS: CALCIUM 9.1 mg/dL (8.5-10.1)
[2020-10-09 09:18] LABS: BLOOD UREA NITROGEN 34.1 mg/dL (7-18)
[2020-10-09 09:21] LABS: CREATININE 1.3 mg/dL (0.55-1.3)
[2020-10-09 09:22] LABS: BILIRUBIN,TOTAL 0.5 mg/dL (0.2-1); TOT PROT 6.4 g/dl (6.4-8.2)
[2020-10-09 09:29] LABS: ALBUMIN 2.5 g/dl (3.4-5.0)
[2020-10-09] MEDS: TAMSULOSIN HCL 0.4 MG CAP PO SCH (09:39)
[2020-10-09] MEDS: ESCITALOPRAM OXALATE 10 MG TABLET PO SCH (09:39)
[2020-10-09] MEDS: predniSONE 5 MG TABLET (UD) PO SCH (09:39)
[2020-10-09] MEDS: FINASTERIDE 5 MG TABLET (FP) PO SCH (09:39)
[2020-10-09] MEDS: CINACALCET HCL 30 MG TAB (FP) PO SCH (09:39)
[2020-10-09] MEDS: SODIUM BICARBONATE 650 MG TABLET PO SCH ×2 (09:39→21:30)
[2020-10-09] MEDS: ENTECAVIR 0.5 MG TABLET PO SCH (09:40)
[2020-10-09] MEDS: TACROLIMUS ANHYDROUS 1 MG CAPSULE PO SCH ×2 (09:42→21:30)
[2020-10-09 10:01] LABS: WHITE BLOOD COUNT 1.4 K/mm3 (4.0-10.0)
[2020-10-09] MEDS: amLODIPine BESYLATE 5 MG TABLET (FP) PO SCH (10:40)
[2020-10-09 10:41] LABS: ANISOCYTOSIS 3+; MACROCYTOSIS 0; OVALOCYTE 1+; PLATELET ESTIMATE DECREASED; TARGET CELLS 1+
[2020-10-09] MEDS: SODIUM CHLORIDE 0.45% 1,000 ML IV SCH (15:50)
[2020-10-09] MEDS ORDERED: PT OWN MED DRAWER 7, Y5N ONE (21:23)
[2020-10-09] MEDS: ATORVASTATIN CA 10 MG TABLET (FP) PO SCH (21:33)
[2020-10-10] MEDS ORDERED: MEROPENEM 1 GM VIAL (RESTRICTED TO ID) IVPB ONE ×3 (02:09→17:25)
[2020-10-10] MEDS ORDERED: DEXTROSE 5%-WATER 100 ML IVPB ONE ×3 (02:10→17:25)
[2020-10-10] MEDS: MEROPENEM 1 GM in DEXTROSE 5%-WATER 100 ML IVPB SCH ×3 (02:25→17:54)
[2020-10-10] MEDS: SODIUM CHLORIDE 0.45% 1,000 ML IV SCH (06:13)
[2020-10-10] MEDS: INSULIN SLIDING SCALE (NOVOLOG) 1 VIAL SQ SCH ×4 (06:13→22:39)
[2020-10-10 08:41] LABS: HEMOGLOBIN 8.2 GM/dL (11.7-16.9); MCH 28.9 pg (25.7-33.7); MEAN PLT VOLUME 6.7 fl (7.5-11.1); PLATELET COUNT 62 10^3/uL (134-434); RBC 2.82 M/mm3 (4.00-5.60); RDW 18.7 % (11.9-15.9)
[2020-10-10 08:59] LABS: ALBUMIN 2.5 g/dl (3.4-5.0); CALCIUM 9.4 mg/dL (8.5-10.1)
[2020-10-10 09:00] LABS: BLOOD UREA NITROGEN 33.8 mg/dL (7-18); MAGNESIUM 1.5 mg/dL (1.8-2.4)
[2020-10-10 09:03] LABS: PHOSPHOROUS 2.1 mg/dL (2.5-4.9); WHITE BLOOD COUNT 1.6 K/mm3 (4.0-10.0)
[2020-10-10 09:04] LABS: BILIRUBIN,TOTAL 0.3 mg/dL (0.2-1); TOT PROT 6.4 g/dl (6.4-8.2)
[2020-10-10] MEDS: SODIUM BICARBONATE 650 MG TABLET PO SCH ×2 (10:10→22:39)
[2020-10-10] MEDS: amLODIPine BESYLATE 5 MG TABLET (FP) PO SCH (10:10)
[2020-10-10] MEDS: TAMSULOSIN HCL 0.4 MG CAP PO SCH (10:10)
[2020-10-10] MEDS: ESCITALOPRAM OXALATE 10 MG TABLET PO SCH (10:10)
[2020-10-10] MEDS: FINASTERIDE 5 MG TABLET (FP) PO SCH (10:11)
[2020-10-10] MEDS: predniSONE 5 MG TABLET (UD) PO SCH (10:11)
[2020-10-10] MEDS: CINACALCET HCL 30 MG TAB (FP) PO SCH (10:12)
[2020-10-10] MEDS: ENTECAVIR 0.5 MG TABLET PO SCH (10:13)
[2020-10-10] MEDS: TACROLIMUS ANHYDROUS 1 MG CAPSULE PO SCH ×2 (10:13→22:39)
[2020-10-10] MEDS ORDERED: MAGNESIUM SULF 50% (8.12 MEQ/2 ML-1 GM VIAL) IVPB ONE (13:15)
[2020-10-10] MEDS ORDERED: MAGNESIUM 2GM/50ML STERILE WATER IVPB IVPB ONE (14:15)
[2020-10-10] MEDS ORDERED: PT OWN MED DRAWER 7, Y5N ONE (21:44)
[2020-10-10] MEDS: ATORVASTATIN CA 10 MG TABLET (FP) PO SCH (22:39)
[2020-10-11] MEDS ORDERED: MEROPENEM 1 GM VIAL (RESTRICTED TO ID) IVPB ONE ×3 (01:27→17:02)
[2020-10-11] MEDS ORDERED: DEXTROSE 5%-WATER 100 ML IVPB ONE ×3 (01:28→17:03)
[2020-10-11] MEDS: MEROPENEM 1 GM in DEXTROSE 5%-WATER 100 ML IVPB SCH ×3 (01:34→18:32)
[2020-10-11] MEDS: INSULIN SLIDING SCALE (NOVOLOG) 1 VIAL SQ SCH ×4 (06:39→21:35)
[2020-10-11] MEDS ORDERED: INSULIN (LEVEMIR) 100 UNITS/ML UNITS SQ ONE (06:51)
[2020-10-11] MEDS ORDERED: INSULIN (NOVOLOG) ASPART 100 UNITS/ML 10ML VIAL ONE (06:51)
[2020-10-11] MEDS ORDERED: PT OWN MED DRAWER 7, Y5N ONE ×2 (10:19→12:40)
[2020-10-11] MEDS: FINASTERIDE 5 MG TABLET (FP) PO SCH (10:23)
[2020-10-11] MEDS: ESCITALOPRAM OXALATE 10 MG TABLET PO SCH (10:23)
[2020-10-11] MEDS: SODIUM BICARBONATE 650 MG TABLET PO SCH ×2 (10:23→21:18)
[2020-10-11] MEDS: CINACALCET HCL 30 MG TAB (FP) PO SCH (10:24)
[2020-10-11] MEDS: TAMSULOSIN HCL 0.4 MG CAP PO SCH (10:24)
[2020-10-11] MEDS: predniSONE 5 MG TABLET (UD) PO SCH (10:24)
[2020-10-11] MEDS: amLODIPine BESYLATE 5 MG TABLET (FP) PO SCH (10:24)
[2020-10-11] MEDS: TACROLIMUS ANHYDROUS 1 MG CAPSULE PO SCH ×2 (10:25→21:18)
[2020-10-11] MEDS: ENTECAVIR 0.5 MG TABLET PO SCH (10:26)
[2020-10-11 11:37] LABS: HEPATITIS B SURFACE AG MATERN NON-REACTIVE (NONREACTIVE)
[2020-10-11 17:32] LABS: HEMOGLOBIN 7.8 GM/dL (11.7-16.9); MCH 29.2 pg (25.7-33.7); MCHC 34.2 g/dl (32.0-35.9); MEAN CELL VOLUME 85.5 fl (80-96); MEAN PLT VOLUME 6.8 fl (7.5-11.1); PLATELET COUNT 78 10^3/uL (134-434); RBC 2.69 M/mm3 (4.00-5.60)
[2020-10-11 17:52] LABS: CHLORIDE 99 mmol/L (98-107); SODIUM 132 mmol/L (136-145)
[2020-10-11 17:55] LABS: ALBUMIN 2.4 g/dl (3.4-5.0); BLOOD UREA NITROGEN 34.7 mg/dL (7-18); CALCIUM 8.8 mg/dL (8.5-10.1); CO2 34 mmol/L (21-32); GLUCOSE,RANDOM 191 mg/dL (74-106); MAGNESIUM 1.7 mg/dL (1.8-2.4)
[2020-10-11 17:58] LABS: CREATININE 1.4 mg/dL (0.55-1.3); SGOT/AST 13 U/L (15-37); SGPT/ALT 14 U/L (13-61)
[2020-10-11 17:59] LABS: BILIRUBIN,TOTAL 0.4 mg/dL (0.2-1); TOT PROT 6.2 g/dl (6.4-8.2)
[2020-10-11 18:01] LABS: ALK PHOS 99 U/L (45-117)
[2020-10-11 18:03] LABS: ANION GAP -1 MMOL/L (8-16)
[2020-10-11] MEDS: SODIUM ZIRCONIUM CYCLOSILICATE (LOKELMA) 5 GM PACKET PO SCH (20:25)
[2020-10-11] MEDS: ATORVASTATIN CA 10 MG TABLET (FP) PO SCH (21:18)
[2020-10-12] MEDS ORDERED: DEXTROSE 5%-WATER 100 ML IVPB ONE ×3 (00:25→18:09)
[2020-10-12] MEDS ORDERED: MEROPENEM 1 GM VIAL (RESTRICTED TO ID) IVPB ONE ×3 (00:25→18:09)
[2020-10-12] MEDS: MEROPENEM 1 GM in DEXTROSE 5%-WATER 100 ML IVPB SCH ×3 (01:32→18:35)
[2020-10-12] MEDS: INSULIN SLIDING SCALE (NOVOLOG) 1 VIAL SQ SCH ×5 (06:05→21:31)
[2020-10-12] MEDS ORDERED: PT OWN MED DRAWER 7, Y5N ONE ×5 (09:54→20:33)
[2020-10-12] MEDS: TAMSULOSIN HCL 0.4 MG CAP PO SCH (10:11)
[2020-10-12] MEDS: SODIUM ZIRCONIUM CYCLOSILICATE (LOKELMA) 5 GM PACKET PO SCH (10:11)
[2020-10-12] MEDS: SODIUM BICARBONATE 650 MG TABLET PO SCH ×2 (10:11→21:28)
[2020-10-12] MEDS: FINASTERIDE 5 MG TABLET (FP) PO SCH (10:12)
[2020-10-12] MEDS: amLODIPine BESYLATE 5 MG TABLET (FP) PO SCH (10:12)
[2020-10-12] MEDS: ASPIRIN 81 MG CHEWABLE TABLETS PO SCH (10:12)
[2020-10-12] MEDS: ESCITALOPRAM OXALATE 10 MG TABLET PO SCH (10:12)
[2020-10-12] MEDS: ENTECAVIR 0.5 MG TABLET PO SCH (10:13)
[2020-10-12] MEDS: CINACALCET HCL 30 MG TAB (FP) PO SCH (10:14)
[2020-10-12 10:49] LABS: HEMATOCRIT 22.4 % (35.4-49); HEMOGLOBIN 7.8 GM/dL (11.7-16.9); MCH 29.5 pg (25.7-33.7); MCHC 34.7 g/dl (32.0-35.9); MEAN PLT VOLUME 6.7 fl (7.5-11.1); PLATELET COUNT 85 10^3/uL (134-434); RBC 2.64 M/mm3 (4.00-5.60); RDW 19.4 % (11.9-15.9); WHITE BLOOD COUNT 1.7 K/mm3 (4.0-10.0)
[2020-10-12] MEDS: predniSONE 5 MG TABLET (UD) PO SCH (10:52)
[2020-10-12] MEDS: TACROLIMUS ANHYDROUS 1 MG CAPSULE PO SCH ×2 (10:53→21:28)
[2020-10-12 11:10] LABS: ALBUMIN 2.3 g/dl (3.4-5.0); BLOOD UREA NITROGEN 41.7 mg/dL (7-18); MAGNESIUM 1.6 mg/dL (1.8-2.4)
[2020-10-12 11:13] LABS: CREATININE 1.2 mg/dL (0.55-1.3); PHOSPHOROUS 2.2 mg/dL (2.5-4.9)
[2020-10-12 11:15] LABS: BILIRUBIN,TOTAL 0.3 mg/dL (0.2-1); TOT PROT 5.9 g/dl (6.4-8.2)
[2020-10-12 11:50] LABS: ANISOCYTOSIS 1+; MACROCYTOSIS 0; OVALOCYTE 1+; PLATELET ESTIMATE DECREASED
[2020-10-12] MEDS ORDERED: MAGNESIUM SULF 50% (8.12 MEQ/2 ML-1 GM VIAL) IVPB ONE (12:20)
[2020-10-12] MEDS ORDERED: SODIUM PHOSPHATE - 30 MM in SODIUM CHLORIDE 500 ML IVPB ONE (14:00)
[2020-10-12 17:16] VITALS: BMI 17.7
[2020-10-12] MEDS: ATORVASTATIN CA 10 MG TABLET (FP) PO SCH (21:28)
[2020-10-13] MEDS ORDERED: DEXTROSE 5%-WATER 100 ML IVPB ONE ×3 (00:44→17:25)
[2020-10-13] MEDS ORDERED: MEROPENEM 1 GM VIAL (RESTRICTED TO ID) IVPB ONE ×3 (00:44→17:25)
[2020-10-13] MEDS: MEROPENEM 1 GM in DEXTROSE 5%-WATER 100 ML IVPB SCH ×3 (01:36→17:28)
[2020-10-13] MEDS: INSULIN SLIDING SCALE (NOVOLOG) 1 VIAL SQ SCH ×4 (06:07→21:15)
[2020-10-13 07:33] LABS: HEMATOCRIT 20.7 % (35.4-49); HEMOGLOBIN 7.1 GM/dL (11.7-16.9); MCH 29.2 pg (25.7-33.7); MCHC 34.5 g/dl (32.0-35.9); MEAN CELL VOLUME 84.8 fl (80-96); MEAN PLT VOLUME 8.3 fl (7.5-11.1); PLATELET COUNT 104 10^3/uL (134-434); RBC 2.43 M/mm3 (4.00-5.60); RDW 19.4 % (11.9-15.9)
[2020-10-13 07:45] LABS: CALCIUM 8.8 mg/dL (8.5-10.1)
[2020-10-13 07:46] LABS: BLOOD UREA NITROGEN 41.5 mg/dL (7-18); MAGNESIUM 1.9 mg/dL (1.8-2.4)
[2020-10-13 07:49] LABS: CREATININE 1.1 mg/dL (0.55-1.3); PHOSPHOROUS 3.6 mg/dL (2.5-4.9)
[2020-10-13 07:50] LABS: BILIRUBIN,TOTAL 0.4 mg/dL (0.2-1); TOT PROT 5.5 g/dl (6.4-8.2)
[2020-10-13] MEDS ORDERED: PT OWN MED DRAWER 7, Y5N ONE ×3 (10:05→20:31)
[2020-10-13] MEDS: ASPIRIN 81 MG CHEWABLE TABLETS PO SCH (10:15)
[2020-10-13] MEDS: ENTECAVIR 0.5 MG TABLET PO SCH (10:18)
[2020-10-13] MEDS: ESCITALOPRAM OXALATE 10 MG TABLET PO SCH (10:18)
[2020-10-13] MEDS: predniSONE 5 MG TABLET (UD) PO SCH (10:18)
[2020-10-13] MEDS: TAMSULOSIN HCL 0.4 MG CAP PO SCH (10:18)
[2020-10-13] MEDS: SODIUM ZIRCONIUM CYCLOSILICATE (LOKELMA) 5 GM PACKET PO SCH (10:19)
[2020-10-13] MEDS: amLODIPine BESYLATE 5 MG TABLET (FP) PO SCH (10:20)
[2020-10-13] MEDS: TACROLIMUS ANHYDROUS 1 MG CAPSULE PO SCH ×2 (10:20→21:10)
[2020-10-13] MEDS: FINASTERIDE 5 MG TABLET (FP) PO SCH (10:20)
[2020-10-13] MEDS: CINACALCET HCL 30 MG TAB (FP) PO SCH (10:21)
[2020-10-13] MEDS: MULTIVITAMINS (DAILY MVI) TABLET (FP) PO SCH (10:21)
[2020-10-13] MEDS: SODIUM BICARBONATE 650 MG TABLET PO SCH ×2 (10:21→21:11)
[2020-10-13 10:48] LABS: ANISOCYTOSIS 1+; MACROCYTOSIS 0; OVALOCYTE 1+; PLATELET ESTIMATE DECREASED; TARGET CELLS 2+; TEAR DROP CELLS 1+
[2020-10-13] MEDS: ATORVASTATIN CA 10 MG TABLET (FP) PO SCH (21:11)
[2020-10-14] MEDS ORDERED: MEROPENEM 1 GM VIAL (RESTRICTED TO ID) IVPB ONE ×3 (01:45→17:28)
[2020-10-14] MEDS ORDERED: DEXTROSE 5%-WATER 100 ML IVPB ONE ×3 (01:46→17:28)
[2020-10-14] MEDS: MEROPENEM 1 GM in DEXTROSE 5%-WATER 100 ML IVPB SCH ×3 (02:15→17:31)
[2020-10-14] MEDS: INSULIN SLIDING SCALE (NOVOLOG) 1 VIAL SQ SCH ×4 (06:31→21:47)
[2020-10-14 08:23] LABS: HEMATOCRIT 21.7 % (35.4-49); HEMOGLOBIN 7.6 GM/dL (11.7-16.9); MCH 29.3 pg (25.7-33.7); MCHC 34.8 g/dl (32.0-35.9); MEAN CELL VOLUME 84.2 fl (80-96); MEAN PLT VOLUME 7.5 fl (7.5-11.1); PLATELET COUNT 151 10^3/uL (134-434); RBC 2.58 M/mm3 (4.00-5.60); RDW 19.8 % (11.9-15.9); WHITE BLOOD COUNT 2.4 K/mm3 (4.0-10.0)
[2020-10-14 08:44] LABS: ALBUMIN 2.2 g/dl (3.4-5.0)
[2020-10-14 08:45] LABS: BLOOD UREA NITROGEN 37.7 mg/dL (7-18)
[2020-10-14 08:48] LABS: BILIRUBIN,TOTAL 0.3 mg/dL (0.2-1); CREATININE 0.8 mg/dL (0.55-1.3)
[2020-10-14 08:49] LABS: TOT PROT 5.8 g/dl (6.4-8.2)
[2020-10-14 09:35] LABS: ANISOCYTOSIS 2+; MACROCYTOSIS 0; OVALOCYTE 1+; PLATELET ESTIMATE DECREASED; TEAR DROP CELLS 1+
[2020-10-14] MEDS ORDERED: PT OWN MED DRAWER 7, Y5N ONE ×2 (10:36→21:06)
[2020-10-14] MEDS: ASPIRIN 81 MG CHEWABLE TABLETS PO SCH (10:39)
[2020-10-14] MEDS: SODIUM BICARBONATE 650 MG TABLET PO SCH ×2 (10:39→21:43)
[2020-10-14] MEDS: predniSONE 5 MG TABLET (UD) PO SCH (10:39)
[2020-10-14] MEDS: ESCITALOPRAM OXALATE 10 MG TABLET PO SCH (10:39)
[2020-10-14] MEDS: amLODIPine BESYLATE 5 MG TABLET (FP) PO SCH (10:40)
[2020-10-14] MEDS: FINASTERIDE 5 MG TABLET (FP) PO SCH (10:40)
[2020-10-14] MEDS: MULTIVITAMINS (DAILY MVI) TABLET (FP) PO SCH (10:40)
[2020-10-14] MEDS: SODIUM ZIRCONIUM CYCLOSILICATE (LOKELMA) 5 GM PACKET PO SCH (10:40)
[2020-10-14] MEDS: TAMSULOSIN HCL 0.4 MG CAP PO SCH (10:40)
[2020-10-14] MEDS: ENTECAVIR 0.5 MG TABLET PO SCH (10:41)
[2020-10-14] MEDS: TACROLIMUS ANHYDROUS 1 MG CAPSULE PO SCH ×2 (10:41→21:43)
[2020-10-14] MEDS: CINACALCET HCL 30 MG TAB (FP) PO SCH (10:42)
[2020-10-14] MEDS ORDERED: INSULIN (NOVOLOG) ASPART 100 UNITS/ML 10ML VIAL ONE (11:32)
[2020-10-14] MEDS: ATORVASTATIN CA 10 MG TABLET (FP) PO SCH (21:43)
[2020-10-15] MEDS ORDERED: MEROPENEM 1 GM VIAL (RESTRICTED TO ID) IVPB ONE ×3 (01:28→17:30)
[2020-10-15] MEDS ORDERED: DEXTROSE 5%-WATER 100 ML IVPB ONE ×3 (01:28→17:30)
[2020-10-15] MEDS: MEROPENEM 1 GM in DEXTROSE 5%-WATER 100 ML IVPB SCH ×3 (01:44→17:42)
[2020-10-15] MEDS: INSULIN SLIDING SCALE (NOVOLOG) 1 VIAL SQ SCH ×4 (06:15→21:20)
[2020-10-15] MEDS ORDERED: PT OWN MED DRAWER 7, Y5N ONE ×2 (10:27→21:00)
[2020-10-15] MEDS: ASPIRIN 81 MG CHEWABLE TABLETS PO SCH (10:47)
[2020-10-15] MEDS: ENTECAVIR 0.5 MG TABLET PO SCH (10:47)
[2020-10-15] MEDS: predniSONE 5 MG TABLET (UD) PO SCH (10:48)
[2020-10-15] MEDS: ESCITALOPRAM OXALATE 10 MG TABLET PO SCH (10:48)
[2020-10-15] MEDS: TAMSULOSIN HCL 0.4 MG CAP PO SCH (10:48)
[2020-10-15] MEDS: azaTHIOprine 50 MG TABLET PO SCH (10:49)
[2020-10-15] MEDS: amLODIPine BESYLATE 5 MG TABLET (FP) PO SCH (10:50)
[2020-10-15] MEDS: SODIUM ZIRCONIUM CYCLOSILICATE (LOKELMA) 5 GM PACKET PO SCH (10:50)
[2020-10-15] MEDS: CINACALCET HCL 30 MG TAB (FP) PO SCH (10:51)
[2020-10-15] MEDS: FINASTERIDE 5 MG TABLET (FP) PO SCH (10:51)
[2020-10-15] MEDS: TACROLIMUS ANHYDROUS 1 MG CAPSULE PO SCH ×2 (10:51→21:20)
[2020-10-15] MEDS: MULTIVITAMINS (DAILY MVI) TABLET (FP) PO SCH (10:52)
[2020-10-15] MEDS: SODIUM BICARBONATE 650 MG TABLET PO SCH ×2 (10:52→21:20)
[2020-10-15 14:20] LABS: BLOOD UREA NITROGEN 33.8 mg/dL (7-18); CALCIUM 8.9 mg/dL (8.5-10.1)
[2020-10-15 14:23] LABS: CREATININE 0.9 mg/dL (0.55-1.3)
[2020-10-15] MEDS: ATORVASTATIN CA 10 MG TABLET (FP) PO SCH (21:20)
[2020-10-15 21:49] LABS: HEMATOCRIT 21.1 % (35.4-49); HEMOGLOBIN 7.1 GM/dL (11.7-16.9); MCH 28.5 pg (25.7-33.7); MCHC 33.5 g/dl (32.0-35.9); MEAN PLT VOLUME 7.1 fl (7.5-11.1); PLATELET COUNT 217 10^3/uL (134-434); RBC 2.48 M/mm3 (4.00-5.60)
[2020-10-15 21:51] LABS: WHITE BLOOD COUNT 1.7 K/mm3 (4.0-10.0)
[2020-10-15 22:10] LABS: BLOOD UREA NITROGEN 37.1 mg/dL (7-18); CALCIUM 8.7 mg/dL (8.5-10.1)
[2020-10-15 22:11] LABS: MAGNESIUM 1.7 mg/dL (1.8-2.4)
[2020-10-15 22:33] LABS: ANISOCYTOSIS 2+; MACROCYTOSIS 0; OVALOCYTE 1+; PLATELET ESTIMATE NORMAL
[2020-10-16] MEDS ORDERED: MEROPENEM 1 GM VIAL (RESTRICTED TO ID) IVPB ONE ×3 (01:48→17:00)
[2020-10-16] MEDS ORDERED: DEXTROSE 5%-WATER 100 ML IVPB ONE ×3 (01:49→17:00)
[2020-10-16] MEDS: MEROPENEM 1 GM in DEXTROSE 5%-WATER 100 ML IVPB SCH ×3 (02:36→17:39)
[2020-10-16] MEDS: INSULIN SLIDING SCALE (NOVOLOG) 1 VIAL SQ SCH ×4 (06:11→21:44)
[2020-10-16 08:16] LABS: HEMATOCRIT 26.6 % (35.4-49); MCH 29.1 pg (25.7-33.7); MEAN CELL VOLUME 85.7 fl (80-96); MEAN PLT VOLUME 7.4 fl (7.5-11.1); PLATELET COUNT 276 10^3/uL (134-434); RDW 19.3 % (11.9-15.9); WHITE BLOOD COUNT 2.8 K/mm3 (4.0-10.0)
[2020-10-16 08:29] LABS: CALCIUM 9.1 mg/dL (8.5-10.1)
[2020-10-16 08:30] LABS: BLOOD UREA NITROGEN 36.9 mg/dL (7-18); MAGNESIUM 1.7 mg/dL (1.8-2.4)
[2020-10-16 08:33] LABS: CREATININE 0.9 mg/dL (0.55-1.3); PHOSPHOROUS 1.5 mg/dL (2.5-4.9)
[2020-10-16 10:36] LABS: ANISOCYTOSIS 1+; MACROCYTOSIS 1+; OVALOCYTE 1+; PLATELET ESTIMATE NORMAL; TARGET CELLS 1+
[2020-10-16] MEDS ORDERED: PT OWN MED DRAWER 7, Y5N ONE ×3 (10:40→20:31)
[2020-10-16] MEDS: ASPIRIN 81 MG CHEWABLE TABLETS PO SCH (10:42)
[2020-10-16] MEDS: ENTECAVIR 0.5 MG TABLET PO SCH (10:43)
[2020-10-16] MEDS: predniSONE 5 MG TABLET (UD) PO SCH (10:44)
[2020-10-16] MEDS: TAMSULOSIN HCL 0.4 MG CAP PO SCH (10:44)
[2020-10-16] MEDS: ESCITALOPRAM OXALATE 10 MG TABLET PO SCH (10:44)
[2020-10-16] MEDS: azaTHIOprine 50 MG TABLET PO SCH (10:44)
[2020-10-16] MEDS: amLODIPine BESYLATE 5 MG TABLET (FP) PO SCH (10:46)
[2020-10-16] MEDS: SODIUM ZIRCONIUM CYCLOSILICATE (LOKELMA) 5 GM PACKET PO SCH (10:46)
[2020-10-16] MEDS: TACROLIMUS ANHYDROUS 1 MG CAPSULE PO SCH ×2 (10:47→21:44)
[2020-10-16] MEDS: FINASTERIDE 5 MG TABLET (FP) PO SCH (10:48)
[2020-10-16] MEDS: CINACALCET HCL 30 MG TAB (FP) PO SCH (10:48)
[2020-10-16] MEDS: SODIUM BICARBONATE 650 MG TABLET PO SCH ×2 (10:48→21:44)
[2020-10-16] MEDS: MULTIVITAMINS (DAILY MVI) TABLET (FP) PO SCH (10:48)
[2020-10-16] MEDS ORDERED: SODIUM PHOSPHATE - 0 MM in DEXTROSE 5%-WATER - 250 ML IVPB ONE (17:22)
[2020-10-16] MEDS ORDERED: MAGNESIUM OXIDE 400 MG TABLET (FP) PO ONE (17:22)
[2020-10-16] MEDS ORDERED: SODIUM PHOSPHATE - 30 MM in DEXTROSE 5%-WATER - 250 ML IVPB ONE (17:23)
[2020-10-16] MEDS: ATORVASTATIN CA 10 MG TABLET (FP) PO SCH (21:44)
[2020-10-17] MEDS ORDERED: MEROPENEM 1 GM VIAL (RESTRICTED TO ID) IVPB ONE ×3 (01:25→17:06)
[2020-10-17] MEDS ORDERED: DEXTROSE 5%-WATER 100 ML IVPB ONE ×3 (01:26→17:06)
[2020-10-17] MEDS: MEROPENEM 1 GM in DEXTROSE 5%-WATER 100 ML IVPB SCH ×3 (01:30→17:46)
[2020-10-17] MEDS: INSULIN SLIDING SCALE (NOVOLOG) 1 VIAL SQ SCH ×4 (06:24→21:27)
[2020-10-17 08:15] LABS: HEMATOCRIT 27.4 % (35.4-49); HEMOGLOBIN 9.4 GM/dL (11.7-16.9); MCH 29.3 pg (25.7-33.7); MCHC 34.2 g/dl (32.0-35.9); MEAN CELL VOLUME 85.8 fl (80-96); MEAN PLT VOLUME 7.4 fl (7.5-11.1); PLATELET COUNT 325 10^3/uL (134-434); RBC 3.19 M/mm3 (4.00-5.60); RDW 19.5 % (11.9-15.9); WHITE BLOOD COUNT 2.9 K/mm3 (4.0-10.0)
[2020-10-17 08:36] LABS: CALCIUM 9.1 mg/dL (8.5-10.1); MAGNESIUM 1.7 mg/dL (1.8-2.4)
[2020-10-17 08:37] LABS: BLOOD UREA NITROGEN 37.9 mg/dL (7-18)
[2020-10-17 08:40] LABS: CREATININE 0.9 mg/dL (0.55-1.3)
[2020-10-17] MEDS ORDERED: PT OWN MED DRAWER 7, Y5N ONE ×4 (09:47→20:16)
[2020-10-17] MEDS: MULTIVITAMINS (DAILY MVI) TABLET (FP) PO SCH (10:25)
[2020-10-17] MEDS: TAMSULOSIN HCL 0.4 MG CAP PO SCH (10:25)
[2020-10-17] MEDS: predniSONE 5 MG TABLET (UD) PO SCH (10:25)
[2020-10-17] MEDS: ESCITALOPRAM OXALATE 10 MG TABLET PO SCH (10:25)
[2020-10-17] MEDS: amLODIPine BESYLATE 5 MG TABLET (FP) PO SCH (10:25)
[2020-10-17] MEDS: ASPIRIN 81 MG CHEWABLE TABLETS PO SCH (10:25)
[2020-10-17] MEDS: FINASTERIDE 5 MG TABLET (FP) PO SCH (10:26)
[2020-10-17] MEDS: CINACALCET HCL 30 MG TAB (FP) PO SCH (10:26)
[2020-10-17] MEDS: SODIUM BICARBONATE 650 MG TABLET PO SCH ×2 (10:26→21:27)
[2020-10-17] MEDS: azaTHIOprine 50 MG TABLET PO SCH (10:27)
[2020-10-17] MEDS: TACROLIMUS ANHYDROUS 1 MG CAPSULE PO SCH ×2 (10:27→21:27)
[2020-10-17] MEDS: ENTECAVIR 0.5 MG TABLET PO SCH (10:27)
[2020-10-17] MEDS: SODIUM ZIRCONIUM CYCLOSILICATE (LOKELMA) 5 GM PACKET PO SCH (10:29)
[2020-10-17] MEDS ORDERED: guaiFENesin/D-METHORPHAN HB 10 ML UNIT-DOSE CUPS PO PRN (11:22)
[2020-10-17] MEDS ORDERED: SODIUM ZIRCONIUM CYCLOSILICATE (LOKELMA) 5 GM PACKET PO ONE (15:36)
[2020-10-17] MEDS ORDERED: azaTHIOprine 50 MG TABLET PO SCH (17:55)
[2020-10-17] MEDS: ATORVASTATIN CA 10 MG TABLET (FP) PO SCH (21:27)
[2020-10-18] MEDS: INSULIN SLIDING SCALE (NOVOLOG) 1 VIAL SQ SCH ×4 (06:20→21:26)
[2020-10-18] MEDS ORDERED: PT OWN MED DRAWER 7, Y5N ONE (09:53)
[2020-10-18] MEDS: ASPIRIN 81 MG CHEWABLE TABLETS PO SCH (09:56)
[2020-10-18] MEDS: ENTECAVIR 0.5 MG TABLET PO SCH (09:57)
[2020-10-18] MEDS: predniSONE 5 MG TABLET (UD) PO SCH (09:58)
[2020-10-18] MEDS: TAMSULOSIN HCL 0.4 MG CAP PO SCH (09:58)
[2020-10-18] MEDS: azaTHIOprine 50 MG TABLET PO SCH (09:59)
[2020-10-18] MEDS: ESCITALOPRAM OXALATE 10 MG TABLET PO SCH (09:59)
[2020-10-18] MEDS: SODIUM ZIRCONIUM CYCLOSILICATE (LOKELMA) 5 GM PACKET PO SCH (10:00)
[2020-10-18] MEDS: amLODIPine BESYLATE 5 MG TABLET (FP) PO SCH (10:01)
[2020-10-18] MEDS: TACROLIMUS ANHYDROUS 1 MG CAPSULE PO SCH ×2 (10:01→21:25)
[2020-10-18] MEDS: FINASTERIDE 5 MG TABLET (FP) PO SCH (10:01)
[2020-10-18] MEDS: SODIUM BICARBONATE 650 MG TABLET PO SCH ×2 (10:02→21:26)
[2020-10-18] MEDS: CINACALCET HCL 30 MG TAB (FP) PO SCH (10:02)
[2020-10-18] MEDS: MULTIVITAMINS (DAILY MVI) TABLET (FP) PO SCH (10:02)
[2020-10-18] MEDS ORDERED: INSULIN (NOVOLOG) ASPART 100 UNITS/ML 10ML VIAL ONE (16:25)
[2020-10-18] MEDS: ATORVASTATIN CA 10 MG TABLET (FP) PO SCH (21:25)
[2020-10-19] MEDS: INSULIN SLIDING SCALE (NOVOLOG) 1 VIAL SQ SCH ×4 (06:13→21:38)
[2020-10-19] MEDS ORDERED: PT OWN MED DRAWER 7, Y5N ONE ×2 (09:35→20:34)
[2020-10-19] MEDS: ASPIRIN 81 MG CHEWABLE TABLETS PO SCH (09:42)
[2020-10-19] MEDS: ENTECAVIR 0.5 MG TABLET PO SCH (09:43)
[2020-10-19] MEDS: predniSONE 5 MG TABLET (UD) PO SCH (09:43)
[2020-10-19] MEDS: TAMSULOSIN HCL 0.4 MG CAP PO SCH (09:44)
[2020-10-19] MEDS: ESCITALOPRAM OXALATE 10 MG TABLET PO SCH (09:44)
[2020-10-19] MEDS: azaTHIOprine 50 MG TABLET PO SCH (09:44)
[2020-10-19] MEDS: SODIUM ZIRCONIUM CYCLOSILICATE (LOKELMA) 5 GM PACKET PO SCH (09:45)
[2020-10-19] MEDS: TACROLIMUS ANHYDROUS 1 MG CAPSULE PO SCH ×2 (09:46→21:30)
[2020-10-19] MEDS: amLODIPine BESYLATE 5 MG TABLET (FP) PO SCH (09:46)
[2020-10-19] MEDS: FINASTERIDE 5 MG TABLET (FP) PO SCH (09:46)
[2020-10-19] MEDS: SODIUM BICARBONATE 650 MG TABLET PO SCH ×2 (09:47→21:30)
[2020-10-19] MEDS: CINACALCET HCL 30 MG TAB (FP) PO SCH (09:47)
[2020-10-19] MEDS: MULTIVITAMINS (DAILY MVI) TABLET (FP) PO SCH (09:48)
[2020-10-19] MEDS: ATORVASTATIN CA 10 MG TABLET (FP) PO SCH (21:30)
[2020-10-20] MEDS ORDERED: TAMSULOSIN HCL 0.4 MG CAP PO SCH (05:36)
[2020-10-20] MEDS: INSULIN SLIDING SCALE (NOVOLOG) 1 VIAL SQ SCH ×2 (06:24→12:29)
[2020-10-20] MEDS ORDERED: PT OWN MED DRAWER 7, Y5N ONE (11:02)
[2020-10-20] MEDS: SODIUM ZIRCONIUM CYCLOSILICATE (LOKELMA) 5 GM PACKET PO SCH (11:34)
[2020-10-20] MEDS: ASPIRIN 81 MG CHEWABLE TABLETS PO SCH (11:34)
[2020-10-20] MEDS: SODIUM BICARBONATE 650 MG TABLET PO SCH (11:34)
[2020-10-20] MEDS: ESCITALOPRAM OXALATE 10 MG TABLET PO SCH (11:34)
[2020-10-20] MEDS: predniSONE 5 MG TABLET (UD) PO SCH (11:35)
[2020-10-20] MEDS: amLODIPine BESYLATE 5 MG TABLET (FP) PO SCH (11:35)
[2020-10-20] MEDS: CINACALCET HCL 30 MG TAB (FP) PO SCH (11:35)
[2020-10-20] MEDS: FINASTERIDE 5 MG TABLET (FP) PO SCH (11:35)
[2020-10-20] MEDS: MULTIVITAMINS (DAILY MVI) TABLET (FP) PO SCH (11:35)
[2020-10-20] MEDS: ENTECAVIR 0.5 MG TABLET PO SCH (11:35)
[2020-10-20] MEDS: azaTHIOprine 50 MG TABLET PO SCH (11:36)
[2020-10-20] MEDS: TACROLIMUS ANHYDROUS 1 MG CAPSULE PO SCH (12:53)
[2020-10-20 15:12] VITALS: BP 137/55; PULSE 67; TEMP 98.7
== END 2020-10-20 15:00 | disposition home or self-care (01) | DRG 698 ==
LOC: JER 10:47 → JERBED 11:48 → J8W 16:13
PROVIDERS: ADMIT Internal Medicine; ATTEND Internal Medicine
DX: T83.511A Infection and inflammatory reaction due to indwelling urethral catheter, initial encounter (principal); E43 Unspecified severe protein-calorie malnutrition; S37.33XA Laceration of urethra, initial encounter; Z94.0 Kidney transplant status; Z68.1 Body mass index [BMI] 19.9 or less, adult; L97.909 Non-pressure chronic ulcer of unspecified part of unspecified lower leg with unspecified severity; N18.5 Chronic kidney disease, stage 5; D61.818 Other pancytopenia; Z16.12 Extended spectrum beta lactamase (ESBL) resistance; F02.81 Dementia in other diseases classified elsewhere, unspecified severity, with behavioral disturbance; E11.621 Type 2 diabetes mellitus with foot ulcer; L97.509 Non-pressure chronic ulcer of other part of unspecified foot with unspecified severity; D63.1 Anemia in chronic kidney disease; D72.819 Decreased white blood cell count, unspecified; N39.0 Urinary tract infection, site not specified; E87.5 Hyperkalemia; E78.5 Hyperlipidemia, unspecified; I10 Essential (primary) hypertension; F32.9 Major depressive disorder, single episode, unspecified; Z98.61 Coronary angioplasty status; I25.119 Atherosclerotic heart disease of native coronary artery with unspecified angina pectoris; R33.9 Retention of urine, unspecified; E83.39 Other disorders of phosphorus metabolism; E83.42 Hypomagnesemia; G30.9 Alzheimer's disease, unspecified; Y83.9 Surgical procedure, unspecified as the cause of abnormal reaction of the patient, or of later complication, without mention of misadventure at the time of the procedure
CPT/HCPCS: 36415; 36430; 51102; 80048; 80053; 80197; 81003; 82962; 83735; 84100; 84484; 85025; 85027; 86705; 86706; 86707; 86850; 86900; 86901; 86922; 87040; 87086; 87186; 87340; 87350; 87517; 93005; 93010; 97116-GP; 97161-GP; 99285-25; A4358; C1729; C1769; C9803; P9058; U0003; U0005

== ENCOUNTER 2020-11-03 11:30 | Emergency (ER) | payer OTHER ==
[2020-11-03 11:57] VITALS: TEMP 97.6; BMI 16.7
[2020-11-03 15:54] VITALS: BP 125/73; PULSE 80
== END 2020-11-03 15:54 | disposition home or self-care (01) ==
LOC: JER 11:30
DX: T83.098A Other mechanical complication of other urinary catheter, initial encounter (principal)
CPT/HCPCS: 99282-25

== ENCOUNTER 2020-12-07 13:14 | Inpatient (IN) | payer OTHER ==
[2020-12-07] MEDS ORDERED: MEROPENEM 1 GM in DEXTROSE 5%-WATER 100 ML IVPB ONE (15:05)
[2020-12-07 15:11] LABS: BASO % 0.1 % (0-2.0); EOS % 0.8 % (0-4.5); HEMATOCRIT 32.7 % (35.4-49); HEMOGLOBIN 10.9 GM/dL (11.7-16.9); LYMPH % 18.5 % (8-40); MCH 28.5 pg (25.7-33.7); MCHC 33.2 g/dl (32.0-35.9); MEAN CELL VOLUME 85.9 fl (80-96); MEAN PLT VOLUME 6.7 fl (7.5-11.1); NEUT % 75.6 % (42.8-82.8); PLATELET COUNT 163 10^3/uL (134-434); RBC 3.81 M/mm3 (4.00-5.60); RDW 19.8 % (11.9-15.9); WHITE BLOOD COUNT 5.2 K/mm3 (4.0-10.0)
[2020-12-07 15:15] LABS: EPI CELLS 13 /uL (0-25.1); HYALINE CASTS 3 /uL (0-3.1); PH,URINE 8.5 (5.0-8.0); URINE APPEARANCE TURBID; URINE BACTERIA 4516 /uL (0-1359); URINE BILIRUBIN NEGATIVE (NEGATIVE); URINE COLOR ORANGE; URINE GLUCOSE (UA) NEGATIVE (NEGATIVE); URINE KETONE NEGATIVE (NEGATIVE); URINE LEUK ESTERASE 3+ (NEGATIVE); URINE NITRITE POSITIVE (NEGATIVE); URINE PROTEIN 3+ (NEGATIVE); URINE RBC 1756 /uL (0-23.9); URINE UROBILINOGEN 0.2 mg/dL (0.2-1.0); URINE WBC 1183 /uL (0-25.8)
[2020-12-07 15:18] LABS: INR 1.04 (0.83-1.09); PROTHROMBIN TIME (PATIENT) 11.7 SEC (9.7-13.0)
[2020-12-07] MEDS ORDERED: MEROPENEM 1 GM VIAL (RESTRICTED TO ID) IVPB ONE (15:20)
[2020-12-07 15:21] LABS: ACTIVATED PTT 26.1 SECONDS (25.2-36.5)
[2020-12-07 15:23] LABS: ALBUMIN 3.4 g/dl (3.4-5.0); BLOOD UREA NITROGEN 27.5 mg/dL (7-18)
[2020-12-07 15:27] LABS: CREATININE 1.1 mg/dL (0.55-1.3)
[2020-12-07 15:28] LABS: BILIRUBIN,TOTAL 0.5 mg/dL (0.2-1); TOT PROT 7.9 g/dl (6.4-8.2)
[2020-12-07] MEDS ORDERED: ACETAMINOPHEN 325 MG TABLET (FP) PO PRN (16:17)
[2020-12-07] MEDS: INSULIN SLIDING SCALE (NOVOLOG) 1 VIAL SQ SCH ×2 (20:44→23:14)
[2020-12-07] MEDS ORDERED: ATORVASTATIN CA 10 MG TABLET (FP) ONE (21:47)
[2020-12-07] MEDS: MELATONIN 1 MG TABLET PO SCH (21:55)
[2020-12-07] MEDS: ATORVASTATIN CA 10 MG TABLET (FP) PO SCH (21:55)
[2020-12-07] MEDS: TACROLIMUS ANHYDROUS 1 MG CAPSULE PO SCH (21:55)
[2020-12-07] MEDS: SODIUM BICARBONATE 650 MG TABLET PO SCH (21:55)
[2020-12-08] MEDS: FAMOTIDINE 10 MG TABLET PO SCH (06:41)
[2020-12-08] MEDS: INSULIN SLIDING SCALE (NOVOLOG) 1 VIAL SQ SCH ×4 (06:46→21:27)
[2020-12-08] MEDS: TAMSULOSIN HCL 0.4 MG CAP PO SCH (08:15)
[2020-12-08] MEDS: MULTIVITAMINS (DAILY MVI) TABLET (FP) PO SCH (09:15)
[2020-12-08] MEDS: ENOXAPARIN NA (PORCINE) 40 MG/0.4 ML DISP.SYRIN SQ SCH (09:15)
[2020-12-08] MEDS: SODIUM BICARBONATE 650 MG TABLET PO SCH ×2 (09:16→21:26)
[2020-12-08] MEDS: amLODIPine BESYLATE 5 MG TABLET (FP) PO SCH (09:16)
[2020-12-08] MEDS: ASPIRIN 81 MG CHEWABLE TABLETS PO SCH (09:16)
[2020-12-08] MEDS: FINASTERIDE 5 MG TABLET (FP) PO SCH (09:16)
[2020-12-08] MEDS: CINACALCET HCL 30 MG TAB (FP) PO SCH (09:17)
[2020-12-08] MEDS: predniSONE 5 MG TABLET (UD) PO SCH (09:17)
[2020-12-08] MEDS ORDERED: azaTHIOprine 50 MG TABLET PO SCH (10:00)
[2020-12-08 10:18] LABS: BASO % 0.3 % (0-2.0); EOS % 3.1 % (0-4.5); HEMATOCRIT 30.7 % (35.4-49); HEMOGLOBIN 10.2 GM/dL (11.7-16.9); LYMPH % 48.6 % (8-40); MCH 28.7 pg (25.7-33.7); MCHC 33.3 g/dl (32.0-35.9); MEAN PLT VOLUME 6.8 fl (7.5-11.1); MONO % 6.1 % (3.8-10.2); NEUT % 41.9 % (42.8-82.8); PLATELET COUNT 150 10^3/uL (134-434); RBC 3.57 M/mm3 (4.00-5.60); RDW 19.5 % (11.9-15.9)
[2020-12-08 10:41] LABS: CALCIUM 9.9 mg/dL (8.5-10.1)
[2020-12-08 10:42] LABS: BLOOD UREA NITROGEN 28.8 mg/dL (7-18)
[2020-12-08 10:46] LABS: BILIRUBIN,TOTAL 0.4 mg/dL (0.2-1); TOT PROT 6.6 g/dl (6.4-8.2)
[2020-12-08 10:49] LABS: ALBUMIN 2.7 g/dl (3.4-5.0)
[2020-12-08] MEDS: ESCITALOPRAM OXALATE 10 MG TABLET PO SCH (11:18)
[2020-12-08] MEDS: ENTECAVIR 0.5 MG TABLET PO SCH (11:19)
[2020-12-08] MEDS: TACROLIMUS ANHYDROUS 1 MG CAPSULE PO SCH ×2 (11:20→21:28)
[2020-12-08] MEDS ORDERED: DEXTROSE 5%-WATER 100 ML IVPB ONE (17:36)
[2020-12-08] MEDS ORDERED: MEROPENEM 1 GM VIAL (RESTRICTED TO ID) IVPB ONE (17:36)
[2020-12-08] MEDS: MEROPENEM 1 GM in DEXTROSE 5%-WATER 100 ML IVPB SCH (17:51)
[2020-12-08] MEDS ORDERED: PT OWN MED DRAWER 7, Y5N ONE (21:21)
[2020-12-08] MEDS: ATORVASTATIN CA 10 MG TABLET (FP) PO SCH (21:26)
[2020-12-08] MEDS: MELATONIN 1 MG TABLET PO SCH (21:26)
[2020-12-09] MEDS ORDERED: MEROPENEM 1 GM VIAL (RESTRICTED TO ID) IVPB ONE ×3 (02:25→17:12)
[2020-12-09] MEDS ORDERED: DEXTROSE 5%-WATER 100 ML IVPB ONE ×3 (02:25→17:12)
[2020-12-09] MEDS: MEROPENEM 1 GM in DEXTROSE 5%-WATER 100 ML IVPB SCH ×3 (02:40→17:15)
[2020-12-09] MEDS: FAMOTIDINE 10 MG TABLET PO SCH (06:20)
[2020-12-09] MEDS: INSULIN SLIDING SCALE (NOVOLOG) 1 VIAL SQ SCH ×4 (06:20→22:23)
[2020-12-09 08:34] LABS: BASO % 0.2 % (0-2.0); EOS % 1.9 % (0-4.5); HEMATOCRIT 30.4 % (35.4-49); HEMOGLOBIN 10.3 GM/dL (11.7-16.9); LYMPH % 44.9 % (8-40); MCH 28.5 pg (25.7-33.7); MCHC 33.9 g/dl (32.0-35.9); MEAN CELL VOLUME 84.1 fl (80-96); MEAN PLT VOLUME 6.7 fl (7.5-11.1); MONO % 7.2 % (3.8-10.2); NEUT % 45.8 % (42.8-82.8); PLATELET COUNT 142 10^3/uL (134-434); RBC 3.61 M/mm3 (4.00-5.60); RDW 20.2 % (11.9-15.9); WHITE BLOOD COUNT 3.4 K/mm3 (4.0-10.0)
[2020-12-09 08:57] LABS: ALBUMIN 2.6 g/dl (3.4-5.0); BLOOD UREA NITROGEN 26.2 mg/dL (7-18); CALCIUM 9.3 mg/dL (8.5-10.1)
[2020-12-09 09:00] LABS: CREATININE 0.9 mg/dL (0.55-1.3)
[2020-12-09 09:01] LABS: BILIRUBIN,TOTAL 0.7 mg/dL (0.2-1); TOT PROT 6.7 g/dl (6.4-8.2)
[2020-12-09] MEDS: TAMSULOSIN HCL 0.4 MG CAP PO SCH (09:26)
[2020-12-09] MEDS: predniSONE 5 MG TABLET (UD) PO SCH (09:27)
[2020-12-09] MEDS: amLODIPine BESYLATE 5 MG TABLET (FP) PO SCH (09:27)
[2020-12-09] MEDS: MULTIVITAMINS (DAILY MVI) TABLET (FP) PO SCH (09:27)
[2020-12-09] MEDS: SODIUM BICARBONATE 650 MG TABLET PO SCH (09:27)
[2020-12-09] MEDS: ASPIRIN 81 MG CHEWABLE TABLETS PO SCH (09:27)
[2020-12-09] MEDS: CINACALCET HCL 30 MG TAB (FP) PO SCH (09:27)
[2020-12-09] MEDS: FINASTERIDE 5 MG TABLET (FP) PO SCH (09:27)
[2020-12-09] MEDS: ESCITALOPRAM OXALATE 10 MG TABLET PO SCH (09:27)
[2020-12-09] MEDS: ENOXAPARIN NA (PORCINE) 40 MG/0.4 ML DISP.SYRIN SQ SCH (09:27)
[2020-12-09] MEDS ORDERED: PT OWN MED DRAWER 7, Y5N ONE (09:29)
[2020-12-09] MEDS: TACROLIMUS ANHYDROUS 1 MG CAPSULE PO SCH ×2 (09:30→22:33)
[2020-12-09] MEDS: ENTECAVIR 0.5 MG TABLET PO SCH (10:22)
[2020-12-09 14:25] VITALS: BMI 17.2
[2020-12-09] MEDS: ATORVASTATIN CA 10 MG TABLET (FP) PO SCH (22:23)
[2020-12-09] MEDS: MELATONIN 1 MG TABLET PO SCH (22:23)
[2020-12-10] MEDS ORDERED: MEROPENEM 1 GM VIAL (RESTRICTED TO ID) IVPB ONE ×2 (01:50→09:07)
[2020-12-10] MEDS ORDERED: DEXTROSE 5%-WATER 100 ML IVPB ONE ×2 (01:51→09:07)
[2020-12-10] MEDS: MEROPENEM 1 GM in DEXTROSE 5%-WATER 100 ML IVPB SCH ×2 (01:55→09:08)
[2020-12-10] MEDS: FAMOTIDINE 10 MG TABLET PO SCH (06:21)
[2020-12-10] MEDS: INSULIN SLIDING SCALE (NOVOLOG) 1 VIAL SQ SCH ×4 (06:22→21:02)
[2020-12-10 07:56] LABS: EOS % 1.8 % (0-4.5); HEMATOCRIT 30.8 % (35.4-49); HEMOGLOBIN 10.5 GM/dL (11.7-16.9); LYMPH % 54.6 % (8-40); MCH 28.8 pg (25.7-33.7); MCHC 34.2 g/dl (32.0-35.9); MEAN CELL VOLUME 84.3 fl (80-96); MEAN PLT VOLUME 6.8 fl (7.5-11.1); MONO % 7.5 % (3.8-10.2); NEUT % 36.1 % (42.8-82.8); PLATELET COUNT 149 10^3/uL (134-434); RBC 3.66 M/mm3 (4.00-5.60); RDW 20.3 % (11.9-15.9); WHITE BLOOD COUNT 3.5 K/mm3 (4.0-10.0)
[2020-12-10 08:21] LABS: ALBUMIN 2.7 g/dl (3.4-5.0); CALCIUM 9.2 mg/dL (8.5-10.1)
[2020-12-10 08:22] LABS: BLOOD UREA NITROGEN 27.4 mg/dL (7-18)
[2020-12-10 08:24] LABS: CREATININE 0.9 mg/dL (0.55-1.3); MAGNESIUM 1.5 mg/dL (1.8-2.4); PHOSPHOROUS 2.9 mg/dL (2.5-4.9)
[2020-12-10 08:25] LABS: BILIRUBIN,TOTAL 0.5 mg/dL (0.2-1); TOT PROT 6.6 g/dl (6.4-8.2)
[2020-12-10] MEDS: TAMSULOSIN HCL 0.4 MG CAP PO SCH (08:49)
[2020-12-10] MEDS ORDERED: MAGNESIUM 2GM/50ML STERILE WATER IVPB IVPB ONE (09:00)
[2020-12-10] MEDS: FINASTERIDE 5 MG TABLET (FP) PO SCH (09:09)
[2020-12-10] MEDS: CINACALCET HCL 30 MG TAB (FP) PO SCH (09:09)
[2020-12-10] MEDS: ENOXAPARIN NA (PORCINE) 40 MG/0.4 ML DISP.SYRIN SQ SCH (09:09)
[2020-12-10] MEDS: MULTIVITAMINS (DAILY MVI) TABLET (FP) PO SCH ×2 (09:09→09:10)
[2020-12-10] MEDS: ASPIRIN 81 MG CHEWABLE TABLETS PO SCH (09:10)
[2020-12-10] MEDS: ENTECAVIR 0.5 MG TABLET PO SCH (09:10)
[2020-12-10] MEDS: SODIUM BICARBONATE 650 MG TABLET PO SCH (09:10)
[2020-12-10] MEDS: ESCITALOPRAM OXALATE 10 MG TABLET PO SCH (09:10)
[2020-12-10] MEDS: TACROLIMUS ANHYDROUS 1 MG CAPSULE PO SCH ×2 (09:10→21:02)
[2020-12-10] MEDS: predniSONE 5 MG TABLET (UD) PO SCH (09:10)
[2020-12-10] MEDS: amLODIPine BESYLATE 5 MG TABLET (FP) PO SCH (09:10)
[2020-12-10] MEDS ORDERED: INSULIN (NOVOLOG) ASPART 100 UNITS/ML 10ML VIAL ONE (11:13)
[2020-12-10] MEDS ORDERED: PT OWN MED DRAWER 7, Y5N ONE (20:54)
[2020-12-10] MEDS: MELATONIN 1 MG TABLET PO SCH (21:01)
[2020-12-10] MEDS: ATORVASTATIN CA 10 MG TABLET (FP) PO SCH (21:01)
[2020-12-11 04:30] VITALS: TEMP 97.6
[2020-12-11] MEDS: FAMOTIDINE 10 MG TABLET PO SCH (06:03)
[2020-12-11] MEDS: INSULIN SLIDING SCALE (NOVOLOG) 1 VIAL SQ SCH ×2 (06:03→11:09)
[2020-12-11] MEDS: TAMSULOSIN HCL 0.4 MG CAP PO SCH (08:36)
[2020-12-11] MEDS ORDERED: PT OWN MED DRAWER 7, Y5N ONE (09:44)
[2020-12-11] MEDS: predniSONE 5 MG TABLET (UD) PO SCH (09:46)
[2020-12-11] MEDS: SODIUM BICARBONATE 650 MG TABLET PO SCH (09:46)
[2020-12-11] MEDS: amLODIPine BESYLATE 5 MG TABLET (FP) PO SCH (09:46)
[2020-12-11] MEDS: ASPIRIN 81 MG CHEWABLE TABLETS PO SCH (09:46)
[2020-12-11] MEDS: ESCITALOPRAM OXALATE 10 MG TABLET PO SCH (09:46)
[2020-12-11] MEDS: ENOXAPARIN NA (PORCINE) 40 MG/0.4 ML DISP.SYRIN SQ SCH (09:46)
[2020-12-11] MEDS: CINACALCET HCL 30 MG TAB (FP) PO SCH (09:46)
[2020-12-11] MEDS: MULTIVITAMINS (DAILY MVI) TABLET (FP) PO SCH ×2 (09:46→09:48)
[2020-12-11] MEDS: FINASTERIDE 5 MG TABLET (FP) PO SCH (09:46)
[2020-12-11] MEDS: ENTECAVIR 0.5 MG TABLET PO SCH (09:47)
[2020-12-11] MEDS: TACROLIMUS ANHYDROUS 1 MG CAPSULE PO SCH (09:47)
[2020-12-11] MEDS ORDERED: azaTHIOprine 50 MG TABLET PO SCH (10:00)
[2020-12-11 10:27] VITALS: BP 160/64; PULSE 65
[2020-12-11] MEDS ORDERED: INSULIN (NOVOLOG) ASPART 100 UNITS/ML 10ML VIAL ONE (11:04)
== END 2020-12-11 15:57 | disposition home health service (06) | DRG 699 ==
LOC: JER 13:14 → JERBED 14:53 → J6S 12-08 03:38
PROVIDERS: ADMIT Internal Medicine
DX: T83.030A Leakage of cystostomy catheter, initial encounter (principal); N39.0 Urinary tract infection, site not specified; Z94.0 Kidney transplant status; E78.5 Hyperlipidemia, unspecified; N40.0 Benign prostatic hyperplasia without lower urinary tract symptoms; N31.9 Neuromuscular dysfunction of bladder, unspecified; F32.A Depression, unspecified; H54.40 Blindness, one eye, unspecified eye; T83.510A Infection and inflammatory reaction due to cystostomy catheter, initial encounter; R31.9 Hematuria, unspecified; I25.10 Atherosclerotic heart disease of native coronary artery without angina pectoris; F03.90 Unspecified dementia, unspecified severity, without behavioral disturbance, psychotic disturbance, mood disturbance, and anxiety; D72.819 Decreased white blood cell count, unspecified; I12.9 Hypertensive chronic kidney disease with stage 1 through stage 4 chronic kidney disease, or unspecified chronic kidney disease; E11.22 Type 2 diabetes mellitus with diabetic chronic kidney disease; N18.9 Chronic kidney disease, unspecified; Z93.59 Other cystostomy status; Y83.8 Other surgical procedures as the cause of abnormal reaction of the patient, or of later complication, without mention of misadventure at the time of the procedure
CPT/HCPCS: 36415; 80053; 80197; 81003; 82962; 83605; 83735; 84100; 85025; 85610; 85730; 87040; 87086; 87186; 93005; 93010; 99285-25; C9803; U0003; U0005

== ENCOUNTER 2021-02-03 13:27 | Inpatient (IN) | payer OTHER ==
[2021-02-03 13:40] VITALS: BMI 15.5
[2021-02-03] MEDS ORDERED: SODIUM CHLORIDE 0.9% 500 ML INFUS.BAG IV ONE (13:54)
[2021-02-03 15:49] LABS: EPI CELLS 14 /uL (0-25.1); HYALINE CASTS 26 /uL (0-3.1); URINE APPEARANCE TURBID; URINE BACTERIA >9,000 /uL (0-1359); URINE BILIRUBIN NEGATIVE (NEGATIVE); URINE COLOR YELLOW; URINE GLUCOSE (UA) NEGATIVE (NEGATIVE); URINE KETONE TRACE (NEGATIVE); URINE LEUK ESTERASE 3+ (NEGATIVE); URINE NITRITE NEGATIVE (NEGATIVE); URINE PROTEIN 3+ (NEGATIVE); URINE RBC 282 /uL (0-23.9); URINE WBC 7890 /uL (0-25.8)
[2021-02-03 15:59] LABS: BASO % 0.2 % (0-2.0); EOS % 0.4 % (0-4.5); HEMATOCRIT 36.7 % (35.4-49); HEMOGLOBIN 12.3 GM/dL (11.7-16.9); LYMPH % 27.4 % (8-40); MCH 28.4 pg (25.7-33.7); MCHC 33.5 g/dl (32.0-35.9); MEAN CELL VOLUME 84.7 fl (80-96); MEAN PLT VOLUME 6.8 fl (7.5-11.1); MONO % 9.1 % (3.8-10.2); NEUT % 62.9 % (42.8-82.8); PLATELET COUNT 215 10^3/uL (134-434); RBC 4.33 M/mm3 (4.00-5.60); RDW 18.4 % (11.9-15.9)
[2021-02-03] MEDS ORDERED: PIPERACILLIN/TAZOB 3.375 GM 3.375 GM in DEXTROSE 5%-WATER - 50 ML IVPB ONE (16:03)
[2021-02-03 16:12] LABS: INR 0.99 (0.83-1.09); PROTHROMBIN TIME (PATIENT) 11.6 SEC (9.7-13.0)
[2021-02-03 16:14] LABS: ACTIVATED PTT 25.4 SECONDS (25.2-36.5)
[2021-02-03] MEDS ORDERED: HALOPERIDOL LACTATE 5 MG/ML IM ONE (16:18)
[2021-02-03] MEDS ORDERED: HALOPERIDOL LACTATE 5 MG/ML ONE (16:21)
[2021-02-03 16:26] LABS: CHLORIDE 99 mmol/L (98-107); SODIUM 134 mmol/L (136-145)
[2021-02-03 16:30] LABS: ALBUMIN 2.9 g/dl (3.4-5.0)
[2021-02-03 16:31] LABS: BLOOD UREA NITROGEN 25.8 mg/dL (7-18); CO2 31 mmol/L (21-32); GLUCOSE,RANDOM 105 mg/dL (74-106)
[2021-02-03 16:35] LABS: BILIRUBIN,TOTAL 1.1 mg/dL (0.2-1); TOT PROT 7.9 g/dl (6.4-8.2)
[2021-02-03 16:36] LABS: ALK PHOS 89 U/L (45-117)
[2021-02-03 16:49] LABS: ANION GAP 4 MMOL/L (8-16); SGOT/AST 92 U/L (15-37); SGPT/ALT 22 U/L (13-61)
[2021-02-03] MEDS ORDERED: PIPERACILLIN/TAZOB 3.375 GM 3.375 GM/50 ML BAG IVPB ONE (17:57)
[2021-02-03] MEDS ORDERED: POLYETHYLENE GLYCOL (HEALTHYLAX) 3350 17 GM PACKET PO PRN (23:33)
[2021-02-04] MEDS: PIPERACILLIN/TAZOB 2.25 GM 2.25 GM in DEXTROSE 5%-WATER - 50 ML IVPB SCH ×3 (02:30→18:36)
[2021-02-04] MEDS ORDERED: PIPERACILLIN/TAZOB 2.25 GM 2.25 GM/50 ML BAG IVPB ONE ×3 (03:50→22:47)
[2021-02-04] MEDS ORDERED: PIPERACILLIN/TAZOB 2.25 GM 2.25 GM in DEXTROSE 5%-WATER - 50 ML IVPB SCH (04:00)
[2021-02-04 08:06] LABS: HEMOGLOBIN 11.2 GM/dL (11.7-16.9); MCH 28.1 pg (25.7-33.7); MCHC 33.1 g/dl (32.0-35.9); MEAN CELL VOLUME 85.1 fl (80-96); MEAN PLT VOLUME 6.3 fl (7.5-11.1); PLATELET COUNT 211 10^3/uL (134-434); RBC 3.99 M/mm3 (4.00-5.60); RDW 18.2 % (11.9-15.9); WHITE BLOOD COUNT 5.1 K/mm3 (4.0-10.0)
[2021-02-04 08:07] LABS: BASO % 0.2 % (0-2.0); EOS % 0.2 % (0-4.5); LYMPH % 24.9 % (8-40); MONO % 10.3 % (3.8-10.2); NEUT % 64.4 % (42.8-82.8)
[2021-02-04 08:28] LABS: BLOOD UREA NITROGEN 25.9 mg/dL (7-18); MAGNESIUM 1.3 mg/dL (1.8-2.4)
[2021-02-04 08:29] LABS: CALCIUM 9.7 mg/dL (8.5-10.1)
[2021-02-04] MEDS ORDERED: FAMOTIDINE 20 MG TABLET ONE (09:17)
[2021-02-04] MEDS ORDERED: TAMSULOSIN HCL 0.4 MG CAP ONE (09:17)
[2021-02-04] MEDS: FAMOTIDINE 20 MG TABLET PO SCH (09:22)
[2021-02-04] MEDS: INSULIN SLIDING SCALE (NOVOLOG) 1 VIAL SQ SCH ×4 (09:22→23:15)
[2021-02-04] MEDS: TAMSULOSIN HCL 0.4 MG CAP PO SCH (09:23)
[2021-02-04] MEDS ORDERED: PT OWN MED DRAWER 7, Y5N ONE (09:39)
[2021-02-04] MEDS ORDERED: TACROLIMUS ANHYDROUS 5 MG, TACROLIMUS ANHYDROUS 2 MG PO SCH (10:00)
[2021-02-04] MEDS ORDERED: azaTHIOprine 50 MG TABLET PO SCH (10:00)
[2021-02-04] MEDS ORDERED: TACROLIMUS 5 MG PO SCH (10:00)
[2021-02-04] MEDS: ESCITALOPRAM OXALATE 10 MG TABLET PO SCH (10:15)
[2021-02-04] MEDS: ENOXAPARIN NA (PORCINE) 40 MG/0.4 ML DISP.SYRIN SQ SCH (10:16)
[2021-02-04] MEDS: amLODIPine BESYLATE 5 MG TABLET (FP) PO SCH (10:16)
[2021-02-04] MEDS: CLOPIDOGREL BISULFATE 75 MG TABLET (FP) PO SCH (10:24)
[2021-02-04] MEDS: CINACALCET HCL 30 MG TAB (FP) PO SCH (10:25)
[2021-02-04] MEDS: predniSONE 5 MG TABLET (UD) PO SCH (11:00)
[2021-02-04] MEDS: ASPIRIN 81 MG CHEWABLE TABLETS PO SCH (11:00)
[2021-02-04] MEDS: ENTECAVIR 0.5 MG TABLET PO SCH (11:00)
[2021-02-04] MEDS: MULTIVITAMINS (DAILY MVI) TABLET (FP) PO SCH (11:37)
[2021-02-04] MEDS ORDERED: SODIUM CHLORIDE 0.45% 1,000 ML IV SCH (12:45)
[2021-02-04] MEDS ORDERED: ATORVASTATIN CA 10 MG TABLET (FP) ONE (22:47)
[2021-02-04] MEDS: ATORVASTATIN CA 10 MG TABLET (FP) PO SCH (23:15)
[2021-02-04] MEDS: TACROLIMUS ANHYDROUS 1 MG CAPSULE PO SCH (23:15)
[2021-02-04] MEDS: MELATONIN 1 MG TABLET PO SCH (23:15)
[2021-02-05] MEDS: PIPERACILLIN/TAZOB 2.25 GM 2.25 GM in DEXTROSE 5%-WATER - 50 ML IVPB SCH ×5 (06:00→21:25)
[2021-02-05] MEDS ORDERED: PIPERACILLIN/TAZOBACTAM 2.25 GM VIAL IVPB ONE ×4 (06:34→21:06)
[2021-02-05] MEDS ORDERED: DEXTROSE 5%-WATER - 50 ML IVPB ONE ×4 (06:34→21:07)
[2021-02-05] MEDS: FAMOTIDINE 20 MG TABLET PO SCH (06:40)
[2021-02-05] MEDS: INSULIN SLIDING SCALE (NOVOLOG) 1 VIAL SQ SCH ×4 (07:02→21:25)
[2021-02-05] MEDS ORDERED: PT OWN MED DRAWER 7, Y5N ONE (08:51)
[2021-02-05] MEDS: azaTHIOprine 50 MG TABLET PO SCH (10:00)
[2021-02-05] MEDS: TAMSULOSIN HCL 0.4 MG CAP PO SCH (10:00)
[2021-02-05] MEDS: ENTECAVIR 0.5 MG TABLET PO SCH (10:00)
[2021-02-05] MEDS: ASPIRIN 81 MG CHEWABLE TABLETS PO SCH (10:00)
[2021-02-05] MEDS: predniSONE 5 MG TABLET (UD) PO SCH (10:00)
[2021-02-05] MEDS: MULTIVITAMINS (DAILY MVI) TABLET (FP) PO SCH (10:01)
[2021-02-05] MEDS: amLODIPine BESYLATE 5 MG TABLET (FP) PO SCH (10:01)
[2021-02-05] MEDS: TACROLIMUS ANHYDROUS 1 MG CAPSULE PO SCH ×3 (10:01→23:16)
[2021-02-05] MEDS: ESCITALOPRAM OXALATE 10 MG TABLET PO SCH (10:01)
[2021-02-05] MEDS: CINACALCET HCL 30 MG TAB (FP) PO SCH (10:01)
[2021-02-05] MEDS: CLOPIDOGREL BISULFATE 75 MG TABLET (FP) PO SCH (10:01)
[2021-02-05] MEDS: ENOXAPARIN NA (PORCINE) 40 MG/0.4 ML DISP.SYRIN SQ SCH (10:03)
[2021-02-05 10:15] LABS: BASO % 0.3 % (0-2.0); EOS % 0.6 % (0-4.5); HEMATOCRIT 31.4 % (35.4-49); HEMOGLOBIN 10.7 GM/dL (11.7-16.9); LYMPH % 26.8 % (8-40); MCH 28.7 pg (25.7-33.7); MCHC 33.9 g/dl (32.0-35.9); MEAN CELL VOLUME 84.6 fl (80-96); MEAN PLT VOLUME 6.4 fl (7.5-11.1); MONO % 11.6 % (3.8-10.2); NEUT % 60.7 % (42.8-82.8); PLATELET COUNT 205 10^3/uL (134-434); RBC 3.72 M/mm3 (4.00-5.60); RDW 18.1 % (11.9-15.9); WHITE BLOOD COUNT 4.9 K/mm3 (4.0-10.0)
[2021-02-05 11:01] LABS: ALBUMIN 2.6 g/dl (3.4-5.0); BLOOD UREA NITROGEN 30.9 mg/dL (7-18); CALCIUM 10.2 mg/dL (8.5-10.1)
[2021-02-05 11:02] LABS: MAGNESIUM 1.6 mg/dL (1.8-2.4)
[2021-02-05 11:04] LABS: CREATININE 1.1 mg/dL (0.55-1.3)
[2021-02-05 11:06] LABS: BILIRUBIN,TOTAL 0.7 mg/dL (0.2-1); TOT PROT 6.4 g/dl (6.4-8.2)
[2021-02-05] MEDS ORDERED: MAGNESIUM SULF 50% (8.12 MEQ/2 ML-1 GM VIAL) IVPB ONE (12:49)
[2021-02-05] MEDS: SODIUM CHLORIDE 0.45% 1,000 ML IV SCH (13:28)
[2021-02-05] MEDS: ATORVASTATIN CA 10 MG TABLET (FP) PO SCH ×2 (21:26→23:16)
[2021-02-05] MEDS: MELATONIN 1 MG TABLET PO SCH (21:26)
[2021-02-06] MEDS ORDERED: PIPERACILLIN/TAZOBACTAM 2.25 GM VIAL IVPB ONE ×4 (02:03→21:15)
[2021-02-06] MEDS ORDERED: DEXTROSE 5%-WATER - 50 ML IVPB ONE ×4 (02:04→21:15)
[2021-02-06] MEDS: PIPERACILLIN/TAZOB 2.25 GM 2.25 GM in DEXTROSE 5%-WATER - 50 ML IVPB SCH ×4 (02:09→21:32)
[2021-02-06] MEDS: SODIUM CHLORIDE 0.45% 1,000 ML IV SCH ×3 (04:27→19:35)
[2021-02-06] MEDS: FAMOTIDINE 20 MG TABLET PO SCH (05:59)
[2021-02-06] MEDS: INSULIN SLIDING SCALE (NOVOLOG) 1 VIAL SQ SCH ×4 (05:59→21:33)
[2021-02-06] MEDS ORDERED: PT OWN MED DRAWER 7, Y5N ONE ×4 (08:55→21:15)
[2021-02-06] MEDS: TAMSULOSIN HCL 0.4 MG CAP PO SCH (10:10)
[2021-02-06] MEDS: CLOPIDOGREL BISULFATE 75 MG TABLET (FP) PO SCH (10:10)
[2021-02-06] MEDS: ACETAMINOPHEN 325 MG TABLET (FP) PO PRN (10:10)
[2021-02-06] MEDS: CINACALCET HCL 30 MG TAB (FP) PO SCH (10:10)
[2021-02-06] MEDS: ASPIRIN 81 MG CHEWABLE TABLETS PO SCH (10:11)
[2021-02-06] MEDS: MULTIVITAMINS (DAILY MVI) TABLET (FP) PO SCH (10:11)
[2021-02-06] MEDS: ESCITALOPRAM OXALATE 10 MG TABLET PO SCH (10:11)
[2021-02-06] MEDS: TACROLIMUS ANHYDROUS 1 MG CAPSULE PO SCH ×2 (10:11→21:34)
[2021-02-06] MEDS: predniSONE 5 MG TABLET (UD) PO SCH (10:11)
[2021-02-06] MEDS: amLODIPine BESYLATE 5 MG TABLET (FP) PO SCH (10:11)
[2021-02-06] MEDS: ENOXAPARIN NA (PORCINE) 40 MG/0.4 ML DISP.SYRIN SQ SCH (10:11)
[2021-02-06] MEDS: azaTHIOprine 50 MG TABLET PO SCH (10:13)
[2021-02-06] MEDS: ENTECAVIR 0.5 MG TABLET PO SCH (10:13)
[2021-02-06 10:42] LABS: BASO % 0.3 % (0-2.0); EOS % 1.9 % (0-4.5); HEMATOCRIT 29.8 % (35.4-49); HEMOGLOBIN 9.7 GM/dL (11.7-16.9); LYMPH % 27.3 % (8-40); MCH 27.5 pg (25.7-33.7); MCHC 32.6 g/dl (32.0-35.9); MEAN CELL VOLUME 84.5 fl (80-96); MEAN PLT VOLUME 6.4 fl (7.5-11.1); MONO % 11.7 % (3.8-10.2); NEUT % 58.8 % (42.8-82.8); PLATELET COUNT 219 10^3/uL (134-434); RBC 3.52 M/mm3 (4.00-5.60); RDW 18.3 % (11.9-15.9); WHITE BLOOD COUNT 3.9 K/mm3 (4.0-10.0)
[2021-02-06 11:03] LABS: ALBUMIN 2.2 g/dl (3.4-5.0); CALCIUM 9.9 mg/dL (8.5-10.1)
[2021-02-06 11:04] LABS: BLOOD UREA NITROGEN 27.6 mg/dL (7-18)
[2021-02-06 11:09] LABS: BILIRUBIN,TOTAL 1.1 mg/dL (0.2-1); TOT PROT 6.3 g/dl (6.4-8.2)
[2021-02-06] MEDS: ATORVASTATIN CA 10 MG TABLET (FP) PO SCH (21:33)
[2021-02-06] MEDS: MELATONIN 1 MG TABLET PO SCH (21:33)
[2021-02-07] MEDS ORDERED: PIPERACILLIN/TAZOBACTAM 2.25 GM VIAL IVPB ONE ×5 (01:39→21:42)
[2021-02-07] MEDS ORDERED: DEXTROSE 5%-WATER - 50 ML IVPB ONE ×5 (01:39→21:42)
[2021-02-07] MEDS: PIPERACILLIN/TAZOB 2.25 GM 2.25 GM in DEXTROSE 5%-WATER - 50 ML IVPB SCH ×4 (02:00→21:47)
[2021-02-07] MEDS: FAMOTIDINE 20 MG TABLET PO SCH (05:59)
[2021-02-07] MEDS: INSULIN SLIDING SCALE (NOVOLOG) 1 VIAL SQ SCH ×4 (05:59→21:57)
[2021-02-07] MEDS: amLODIPine BESYLATE 5 MG TABLET (FP) PO SCH ×2 (06:17→09:49)
[2021-02-07] MEDS ORDERED: PT OWN MED DRAWER 7, Y5N ONE ×2 (09:41→21:43)
[2021-02-07] MEDS: ESCITALOPRAM OXALATE 10 MG TABLET PO SCH (09:47)
[2021-02-07] MEDS: CLOPIDOGREL BISULFATE 75 MG TABLET (FP) PO SCH (09:47)
[2021-02-07] MEDS: CINACALCET HCL 30 MG TAB (FP) PO SCH (09:47)
[2021-02-07] MEDS: ASPIRIN 81 MG CHEWABLE TABLETS PO SCH (09:47)
[2021-02-07] MEDS: MULTIVITAMINS (DAILY MVI) TABLET (FP) PO SCH (09:47)
[2021-02-07] MEDS: ENOXAPARIN NA (PORCINE) 40 MG/0.4 ML DISP.SYRIN SQ SCH (09:47)
[2021-02-07] MEDS: predniSONE 5 MG TABLET (UD) PO SCH (09:47)
[2021-02-07] MEDS: TACROLIMUS ANHYDROUS 1 MG CAPSULE PO SCH ×2 (09:48→21:48)
[2021-02-07] MEDS: azaTHIOprine 50 MG TABLET PO SCH (09:48)
[2021-02-07] MEDS: TAMSULOSIN HCL 0.4 MG CAP PO SCH (09:48)
[2021-02-07] MEDS: ENTECAVIR 0.5 MG TABLET PO SCH (09:49)
[2021-02-07] MEDS: SODIUM CHLORIDE 0.45% 1,000 ML IV SCH (15:08)
[2021-02-07] MEDS: ATORVASTATIN CA 10 MG TABLET (FP) PO SCH (21:48)
[2021-02-07] MEDS: MELATONIN 1 MG TABLET PO SCH (23:00)
[2021-02-08] MEDS ORDERED: PIPERACILLIN/TAZOBACTAM 2.25 GM VIAL IVPB ONE ×4 (01:39→20:49)
[2021-02-08] MEDS ORDERED: DEXTROSE 5%-WATER - 50 ML IVPB ONE ×4 (01:39→20:49)
[2021-02-08] MEDS: PIPERACILLIN/TAZOB 2.25 GM 2.25 GM in DEXTROSE 5%-WATER - 50 ML IVPB SCH ×4 (02:17→21:01)
[2021-02-08] MEDS: INSULIN SLIDING SCALE (NOVOLOG) 1 VIAL SQ SCH ×4 (06:23→21:03)
[2021-02-08] MEDS: FAMOTIDINE 20 MG TABLET PO SCH (06:25)
[2021-02-08] MEDS ORDERED: PT OWN MED DRAWER 7, Y5N ONE ×2 (08:51→20:48)
[2021-02-08] MEDS: TAMSULOSIN HCL 0.4 MG CAP PO SCH (08:56)
[2021-02-08] MEDS: CINACALCET HCL 30 MG TAB (FP) PO SCH (08:59)
[2021-02-08] MEDS: amLODIPine BESYLATE 5 MG TABLET (FP) PO SCH (08:59)
[2021-02-08] MEDS: ENOXAPARIN NA (PORCINE) 40 MG/0.4 ML DISP.SYRIN SQ SCH (08:59)
[2021-02-08] MEDS: ENTECAVIR 0.5 MG TABLET PO SCH (08:59)
[2021-02-08] MEDS: CLOPIDOGREL BISULFATE 75 MG TABLET (FP) PO SCH (08:59)
[2021-02-08] MEDS: TACROLIMUS ANHYDROUS 1 MG CAPSULE PO SCH ×2 (08:59→21:01)
[2021-02-08] MEDS: ESCITALOPRAM OXALATE 10 MG TABLET PO SCH (08:59)
[2021-02-08] MEDS: ASPIRIN 81 MG CHEWABLE TABLETS PO SCH (08:59)
[2021-02-08] MEDS: azaTHIOprine 50 MG TABLET PO SCH (09:00)
[2021-02-08] MEDS: predniSONE 5 MG TABLET (UD) PO SCH (09:01)
[2021-02-08] MEDS: MULTIVITAMINS (DAILY MVI) TABLET (FP) PO SCH (09:47)
[2021-02-08] MEDS: SODIUM CHLORIDE 0.45% 1,000 ML IV SCH (15:59)
[2021-02-08] MEDS: MELATONIN 1 MG TABLET PO SCH (21:02)
[2021-02-08] MEDS: ACETAMINOPHEN 325 MG TABLET (FP) PO PRN (21:02)
[2021-02-08] MEDS: ATORVASTATIN CA 10 MG TABLET (FP) PO SCH (21:03)
[2021-02-09] MEDS: PIPERACILLIN/TAZOB 2.25 GM 2.25 GM in DEXTROSE 5%-WATER - 50 ML IVPB SCH ×3 (02:00→14:44)
[2021-02-09] MEDS: SODIUM CHLORIDE 0.45% 1,000 ML IV SCH ×2 (05:32→13:59)
[2021-02-09] MEDS: FAMOTIDINE 20 MG TABLET PO SCH (06:03)
[2021-02-09] MEDS: INSULIN SLIDING SCALE (NOVOLOG) 1 VIAL SQ SCH ×3 (06:03→17:12)
[2021-02-09] MEDS ORDERED: DEXTROSE 5%-WATER - 50 ML IVPB ONE ×2 (09:44→14:08)
[2021-02-09] MEDS ORDERED: PT OWN MED DRAWER 7, Y5N ONE (09:44)
[2021-02-09] MEDS ORDERED: PIPERACILLIN/TAZOBACTAM 2.25 GM VIAL IVPB ONE ×2 (09:44→14:08)
[2021-02-09] MEDS: TAMSULOSIN HCL 0.4 MG CAP PO SCH (09:46)
[2021-02-09] MEDS: amLODIPine BESYLATE 5 MG TABLET (FP) PO SCH (09:46)
[2021-02-09] MEDS: ASPIRIN 81 MG CHEWABLE TABLETS PO SCH (09:46)
[2021-02-09] MEDS: ENOXAPARIN NA (PORCINE) 40 MG/0.4 ML DISP.SYRIN SQ SCH (09:46)
[2021-02-09] MEDS: CINACALCET HCL 30 MG TAB (FP) PO SCH (09:46)
[2021-02-09] MEDS: CLOPIDOGREL BISULFATE 75 MG TABLET (FP) PO SCH (09:46)
[2021-02-09] MEDS: ESCITALOPRAM OXALATE 10 MG TABLET PO SCH (09:47)
[2021-02-09] MEDS: TACROLIMUS ANHYDROUS 1 MG CAPSULE PO SCH (09:47)
[2021-02-09] MEDS: azaTHIOprine 50 MG TABLET PO SCH (09:47)
[2021-02-09] MEDS: predniSONE 5 MG TABLET (UD) PO SCH (09:47)
[2021-02-09] MEDS: MULTIVITAMINS (DAILY MVI) TABLET (FP) PO SCH (09:47)
[2021-02-09] MEDS: ENTECAVIR 0.5 MG TABLET PO SCH (09:48)
[2021-02-09 09:50] LABS: HEMATOCRIT 28.3 % (35.4-49); HEMOGLOBIN 9.2 GM/dL (11.7-16.9); MCH 27.8 pg (25.7-33.7); MCHC 32.6 g/dl (32.0-35.9); MEAN CELL VOLUME 85.2 fl (80-96); MEAN PLT VOLUME 6.4 fl (7.5-11.1); PLATELET COUNT 233 10^3/uL (134-434); RBC 3.32 M/mm3 (4.00-5.60); WHITE BLOOD COUNT 2.9 K/mm3 (4.0-10.0)
[2021-02-09 10:07] LABS: CALCIUM 9.8 mg/dL (8.5-10.1)
[2021-02-09 10:08] LABS: ALBUMIN 2.2 g/dl (3.4-5.0); BLOOD UREA NITROGEN 17.7 mg/dL (7-18); MAGNESIUM 1.5 mg/dL (1.8-2.4)
[2021-02-09 10:11] LABS: CREATININE 0.9 mg/dL (0.55-1.3)
[2021-02-09 10:13] LABS: BILIRUBIN,TOTAL 0.4 mg/dL (0.2-1); TOT PROT 5.6 g/dl (6.4-8.2)
[2021-02-09] MEDS ORDERED: MAGNESIUM SULF 50% (8.12 MEQ/2 ML-1 GM VIAL) IVPB ONE (12:48)
[2021-02-09] MEDS ORDERED: MAGNESIUM OXIDE 400 MG TABLET (FP) PO ONE (12:48)
[2021-02-10] MEDS ORDERED: PIPERACILLIN/TAZOBACTAM 2.25 GM VIAL IVPB ONE ×5 (00:43→20:34)
[2021-02-10] MEDS ORDERED: DEXTROSE 5%-WATER - 50 ML IVPB ONE ×5 (00:44→20:34)
[2021-02-10] MEDS: MELATONIN 1 MG TABLET PO SCH ×2 (00:49→22:45)
[2021-02-10] MEDS: PIPERACILLIN/TAZOB 2.25 GM 2.25 GM in DEXTROSE 5%-WATER - 50 ML IVPB SCH ×5 (00:49→22:49)
[2021-02-10] MEDS: ATORVASTATIN CA 10 MG TABLET (FP) PO SCH ×2 (00:50→22:45)
[2021-02-10] MEDS: TACROLIMUS ANHYDROUS 1 MG CAPSULE PO SCH ×3 (01:14→22:45)
[2021-02-10] MEDS: SODIUM CHLORIDE 0.45% 1,000 ML IV SCH ×2 (05:34→14:36)
[2021-02-10] MEDS: FAMOTIDINE 20 MG TABLET PO SCH (06:17)
[2021-02-10] MEDS: INSULIN SLIDING SCALE (NOVOLOG) 1 VIAL SQ SCH ×5 (06:17→22:49)
[2021-02-10] MEDS: CLOPIDOGREL BISULFATE 75 MG TABLET (FP) PO SCH (10:35)
[2021-02-10] MEDS: MULTIVITAMINS (DAILY MVI) TABLET (FP) PO SCH (10:35)
[2021-02-10] MEDS: predniSONE 5 MG TABLET (UD) PO SCH (10:35)
[2021-02-10] MEDS: TAMSULOSIN HCL 0.4 MG CAP PO SCH (10:35)
[2021-02-10] MEDS: CINACALCET HCL 30 MG TAB (FP) PO SCH (10:36)
[2021-02-10] MEDS: ASPIRIN 81 MG CHEWABLE TABLETS PO SCH (10:36)
[2021-02-10] MEDS: ENOXAPARIN NA (PORCINE) 40 MG/0.4 ML DISP.SYRIN SQ SCH (10:36)
[2021-02-10] MEDS: ESCITALOPRAM OXALATE 10 MG TABLET PO SCH (10:36)
[2021-02-10] MEDS: amLODIPine BESYLATE 5 MG TABLET (FP) PO SCH (10:36)
[2021-02-10] MEDS: azaTHIOprine 50 MG TABLET PO SCH (11:57)
[2021-02-10] MEDS: ENTECAVIR 0.5 MG TABLET PO SCH (11:58)
[2021-02-10] MEDS ORDERED: PT OWN MED DRAWER 7, Y5N ONE (22:27)
[2021-02-11] MEDS ORDERED: DEXTROSE 5%-WATER - 50 ML IVPB ONE (03:38)
[2021-02-11] MEDS ORDERED: PIPERACILLIN/TAZOBACTAM 2.25 GM VIAL IVPB ONE (03:38)
[2021-02-11] MEDS: PIPERACILLIN/TAZOB 2.25 GM 2.25 GM in DEXTROSE 5%-WATER - 50 ML IVPB SCH ×2 (03:50→09:42)
[2021-02-11] MEDS: FAMOTIDINE 20 MG TABLET PO SCH (06:20)
[2021-02-11] MEDS: INSULIN SLIDING SCALE (NOVOLOG) 1 VIAL SQ SCH ×3 (06:24→15:57)
[2021-02-11] MEDS ORDERED: PT OWN MED DRAWER 7, Y5N ONE ×2 (09:21→23:59)
[2021-02-11] MEDS: TAMSULOSIN HCL 0.4 MG CAP PO SCH (09:42)
[2021-02-11] MEDS: ASPIRIN 81 MG CHEWABLE TABLETS PO SCH (09:42)
[2021-02-11] MEDS: AMINO ACIDS/PROTEIN HYDROLYS 30 ML LIQUID.PKT PO SCH (09:42)
[2021-02-11] MEDS: CLOPIDOGREL BISULFATE 75 MG TABLET (FP) PO SCH (09:43)
[2021-02-11] MEDS: ESCITALOPRAM OXALATE 10 MG TABLET PO SCH (09:43)
[2021-02-11] MEDS: MULTIVITAMINS (DAILY MVI) TABLET (FP) PO SCH (09:43)
[2021-02-11] MEDS: CINACALCET HCL 30 MG TAB (FP) PO SCH (09:43)
[2021-02-11] MEDS: predniSONE 5 MG TABLET (UD) PO SCH (09:43)
[2021-02-11] MEDS: amLODIPine BESYLATE 5 MG TABLET (FP) PO SCH (09:44)
[2021-02-11] MEDS: TACROLIMUS ANHYDROUS 1 MG CAPSULE PO SCH (15:49)
[2021-02-11] MEDS: ENTECAVIR 0.5 MG TABLET PO SCH (15:50)
[2021-02-11] MEDS: azaTHIOprine 50 MG TABLET PO SCH (15:50)
[2021-02-12] MEDS: INSULIN SLIDING SCALE (NOVOLOG) 1 VIAL SQ SCH ×3 (00:07→11:30)
[2021-02-12] MEDS: TACROLIMUS ANHYDROUS 1 MG CAPSULE PO SCH ×2 (00:16→11:19)
[2021-02-12] MEDS: MELATONIN 1 MG TABLET PO SCH (00:16)
[2021-02-12] MEDS: ATORVASTATIN CA 10 MG TABLET (FP) PO SCH (00:17)
[2021-02-12] MEDS: FAMOTIDINE 20 MG TABLET PO SCH (06:19)
[2021-02-12 10:53] LABS: ALBUMIN 2.3 g/dl (3.4-5.0); BLOOD UREA NITROGEN 24.4 mg/dL (7-18); CALCIUM 9.8 mg/dL (8.5-10.1)
[2021-02-12 10:56] LABS: CREATININE 0.8 mg/dL (0.55-1.3)
[2021-02-12 10:57] LABS: BILIRUBIN,TOTAL 0.4 mg/dL (0.2-1); TOT PROT 5.8 g/dl (6.4-8.2)
[2021-02-12] MEDS: AMINO ACIDS/PROTEIN HYDROLYS 30 ML LIQUID.PKT PO SCH (11:16)
[2021-02-12] MEDS: CINACALCET HCL 30 MG TAB (FP) PO SCH (11:16)
[2021-02-12] MEDS: ESCITALOPRAM OXALATE 10 MG TABLET PO SCH (11:16)
[2021-02-12] MEDS: amLODIPine BESYLATE 5 MG TABLET (FP) PO SCH (11:16)
[2021-02-12] MEDS: MULTIVITAMINS (DAILY MVI) TABLET (FP) PO SCH (11:16)
[2021-02-12] MEDS: TAMSULOSIN HCL 0.4 MG CAP PO SCH (11:17)
[2021-02-12] MEDS: ASPIRIN 81 MG CHEWABLE TABLETS PO SCH (11:17)
[2021-02-12] MEDS: CLOPIDOGREL BISULFATE 75 MG TABLET (FP) PO SCH (11:17)
[2021-02-12] MEDS: predniSONE 5 MG TABLET (UD) PO SCH (11:17)
[2021-02-12 12:22] VITALS: BP 139/52; PULSE 65; TEMP 97.5
== END 2021-02-12 15:56 | disposition home health service (06) | DRG 689 ==
LOC: JER 13:27 → JERBED 13:53 → J6S 02-05 00:19 → J7W 02-09 21:16
PROVIDERS: ADMIT Hospitalist; ATTEND Family Medicine
DX: N39.0 Urinary tract infection, site not specified (principal); E43 Unspecified severe protein-calorie malnutrition; R64 Cachexia; Z68.1 Body mass index [BMI] 19.9 or less, adult; Z94.0 Kidney transplant status; F03.90 Unspecified dementia, unspecified severity, without behavioral disturbance, psychotic disturbance, mood disturbance, and anxiety; I12.9 Hypertensive chronic kidney disease with stage 1 through stage 4 chronic kidney disease, or unspecified chronic kidney disease; E11.22 Type 2 diabetes mellitus with diabetic chronic kidney disease; N18.9 Chronic kidney disease, unspecified; E11.51 Type 2 diabetes mellitus with diabetic peripheral angiopathy without gangrene; Z79.4 Long term (current) use of insulin; I25.10 Atherosclerotic heart disease of native coronary artery without angina pectoris; E78.5 Hyperlipidemia, unspecified; D64.9 Anemia, unspecified; N31.9 Neuromuscular dysfunction of bladder, unspecified; Z79.84 Long term (current) use of oral hypoglycemic drugs; N20.0 Calculus of kidney; Z93.50 Unspecified cystostomy status
CPT/HCPCS: 36415; 71045-TC-FY; 74176-TC; 80048; 80053; 81003; 82962; 83605; 83735; 84132; 84484; 85025; 85027; 85610; 85730; 87040; 87086; 87186; 93005; 93010; 99285-25; C9803-CS; U0003; U0005

== ENCOUNTER 2021-02-20 16:36 | Inpatient (IN) | payer OTHER ==
[2021-02-20 19:11] LABS: BASO % 0.2 % (0-2.0); EOS % 1.2 % (0-4.5); HEMATOCRIT 30.5 % (35.4-49); LYMPH % 35.7 % (8-40); MCH 27.9 pg (25.7-33.7); MCHC 32.7 g/dl (32.0-35.9); MEAN CELL VOLUME 85.5 fl (80-96); MEAN PLT VOLUME 6.4 fl (7.5-11.1); MONO % 10.8 % (3.8-10.2); NEUT % 52.1 % (42.8-82.8); PLATELET COUNT 262 10^3/uL (134-434); RBC 3.57 M/mm3 (4.00-5.60); RDW 17.6 % (11.9-15.9); WHITE BLOOD COUNT 3.9 K/mm3 (4.0-10.0)
[2021-02-20 19:16] LABS: EPI CELLS 3 /uL (0-25.1); HYALINE CASTS 2 /uL (0-3.1); URINE APPEARANCE TURBID; URINE BACTERIA >9,000 /uL (0-1359); URINE BILIRUBIN NEGATIVE (NEGATIVE); URINE COLOR YELLOW; URINE GLUCOSE (UA) NEGATIVE (NEGATIVE); URINE KETONE NEGATIVE (NEGATIVE); URINE LEUK ESTERASE 3+ (NEGATIVE); URINE NITRITE NEGATIVE (NEGATIVE); URINE PROTEIN 2+ (NEGATIVE); URINE RBC 6329 /uL (0-23.9); URINE WBC 3168 /uL (0-25.8)
[2021-02-20 19:31] LABS: CHLORIDE 104 mmol/L (98-107); SODIUM 141 mmol/L (136-145)
[2021-02-20 19:33] LABS: ALBUMIN 2.6 g/dl (3.4-5.0); ANION GAP 2 MMOL/L (8-16); BLOOD UREA NITROGEN 45.1 mg/dL (7-18); CO2 34 mmol/L (21-32)
[2021-02-20 19:34] LABS: GLUCOSE,RANDOM 158 mg/dL (74-106)
[2021-02-20 19:36] LABS: CREATININE 1.3 mg/dL (0.55-1.3); SGPT/ALT 13 U/L (13-61)
[2021-02-20 19:37] LABS: SGOT/AST 12 U/L (15-37)
[2021-02-20 19:38] LABS: BILIRUBIN,TOTAL 0.2 mg/dL (0.2-1); TOT PROT 6.6 g/dl (6.4-8.2)
[2021-02-20 19:39] LABS: ALK PHOS 84 U/L (45-117)
[2021-02-20 20:09] LABS: CALCIUM 11.7 mg/dL (8.5-10.1)
[2021-02-21 09:37] LABS: BASO % 0.2 % (0-2.0); EOS % 1.1 % (0-4.5); WHITE BLOOD COUNT 3.1 K/mm3 (4.0-10.0)
[2021-02-21 09:48] LABS: HEMATOCRIT 30.2 % (35.4-49); HEMOGLOBIN 9.9 GM/dL (11.7-16.9); LYMPH % 48.3 % (8-40); MEAN CELL VOLUME 84.9 fl (80-96); MEAN PLT VOLUME 6.3 fl (7.5-11.1); MONO % 11.4 % (3.8-10.2); PLATELET COUNT 235 10^3/uL (134-434); RBC 3.56 M/mm3 (4.00-5.60); RDW 17.9 % (11.9-15.9)
[2021-02-21 09:57] LABS: CALCIUM 11.4 mg/dL (8.5-10.1)
[2021-02-21 09:58] LABS: ALBUMIN 2.6 g/dl (3.4-5.0); BLOOD UREA NITROGEN 44.9 mg/dL (7-18)
[2021-02-21 10:01] LABS: CREATININE 1.2 mg/dL (0.55-1.3)
[2021-02-21 10:03] LABS: BILIRUBIN,TOTAL 0.3 mg/dL (0.2-1); TOT PROT 6.6 g/dl (6.4-8.2)
[2021-02-21] MEDS: MULTIVITAMINS (DAILY MVI) TABLET (FP) PO SCH ×2 (10:21→10:57)
[2021-02-21] MEDS: FINASTERIDE 5 MG TABLET (FP) PO SCH ×2 (10:21→10:57)
[2021-02-21] MEDS: ESCITALOPRAM OXALATE 10 MG TABLET PO SCH ×2 (10:21→10:57)
[2021-02-21] MEDS: predniSONE 5 MG TABLET (UD) PO SCH ×2 (10:21→10:57)
[2021-02-21] MEDS: amLODIPine BESYLATE 5 MG TABLET (FP) PO SCH ×2 (10:21→10:57)
[2021-02-21] MEDS: azaTHIOprine 50 MG TABLET PO SCH ×2 (10:22→10:57)
[2021-02-21] MEDS: CINACALCET HCL 30 MG TAB (FP) PO SCH ×2 (10:22→10:57)
[2021-02-21] MEDS: ATORVASTATIN CA 10 MG TABLET (FP) PO SCH (22:06)
[2021-02-22] MEDS: predniSONE 5 MG TABLET (UD) PO SCH (10:35)
[2021-02-22] MEDS: amLODIPine BESYLATE 5 MG TABLET (FP) PO SCH (10:35)
[2021-02-22] MEDS: ESCITALOPRAM OXALATE 10 MG TABLET PO SCH (10:35)
[2021-02-22] MEDS: MULTIVITAMINS (DAILY MVI) TABLET (FP) PO SCH (10:35)
[2021-02-22] MEDS: FINASTERIDE 5 MG TABLET (FP) PO SCH (10:36)
[2021-02-22] MEDS: CINACALCET HCL 30 MG TAB (FP) PO SCH (10:38)
[2021-02-22] MEDS: azaTHIOprine 50 MG TABLET PO SCH (12:43)
[2021-02-22 13:12] VITALS: BMI 12.9
[2021-02-22] MEDS: AMINO ACIDS 4.25%/D5W 1,000 ML IV SCH (13:23)
[2021-02-22] MEDS: TACROLIMUS 5 MG PO SCH (16:09)
[2021-02-22] MEDS: TACROLIMUS ANHYDROUS 1 MG CAPSULE PO SCH (22:05)
[2021-02-22] MEDS: ATORVASTATIN CA 10 MG TABLET (FP) PO SCH (22:06)
[2021-02-23 09:18] LABS: BASO % 0.3 % (0-2.0); EOS % 1.1 % (0-4.5); HEMATOCRIT 30.3 % (35.4-49); HEMOGLOBIN 9.7 GM/dL (11.7-16.9); MCH 27.1 pg (25.7-33.7); MEAN CELL VOLUME 84.7 fl (80-96); MEAN PLT VOLUME 6.7 fl (7.5-11.1); MONO % 12.5 % (3.8-10.2); NEUT % 36.1 % (42.8-82.8); PLATELET COUNT 221 10^3/uL (134-434); RBC 3.58 M/mm3 (4.00-5.60); RDW 17.3 % (11.9-15.9); WHITE BLOOD COUNT 2.5 K/mm3 (4.0-10.0)
[2021-02-23 09:41] LABS: ALBUMIN 2.6 g/dl (3.4-5.0)
[2021-02-23 09:42] LABS: BLOOD UREA NITROGEN 45.1 mg/dL (7-18)
[2021-02-23 09:43] LABS: CALCIUM 11.2 mg/dL (8.5-10.1)
[2021-02-23 09:44] LABS: CREATININE 1.1 mg/dL (0.55-1.3)
[2021-02-23 09:45] LABS: BILIRUBIN,TOTAL 0.3 mg/dL (0.2-1); TOT PROT 6.5 g/dl (6.4-8.2)
[2021-02-23] MEDS: predniSONE 5 MG TABLET (UD) PO SCH (10:59)
[2021-02-23] MEDS: ESCITALOPRAM OXALATE 10 MG TABLET PO SCH (10:59)
[2021-02-23] MEDS: FINASTERIDE 5 MG TABLET (FP) PO SCH (10:59)
[2021-02-23] MEDS: amLODIPine BESYLATE 5 MG TABLET (FP) PO SCH (11:00)
[2021-02-23] MEDS: CINACALCET HCL 30 MG TAB (FP) PO SCH (11:00)
[2021-02-23] MEDS: TACROLIMUS ANHYDROUS 1 MG CAPSULE PO SCH ×2 (11:01→22:01)
[2021-02-23] MEDS: azaTHIOprine 50 MG TABLET PO SCH (11:01)
[2021-02-23] MEDS: MULTIVITAMINS (DAILY MVI) TABLET (FP) PO SCH (11:03)
[2021-02-23] MEDS: AMINO ACIDS 4.25%/D5W 1,000 ML IV SCH (14:31)
[2021-02-23] MEDS: ATORVASTATIN CA 10 MG TABLET (FP) PO SCH (22:02)
[2021-02-24] MEDS: INSULIN SLIDING SCALE (NOVOLOG) 1 VIAL SQ SCH ×5 (01:57→21:53)
[2021-02-24] MEDS: MULTIVITAMINS (DAILY MVI) TABLET (FP) PO SCH (10:30)
[2021-02-24] MEDS: CINACALCET HCL 30 MG TAB (FP) PO SCH (10:30)
[2021-02-24] MEDS: FINASTERIDE 5 MG TABLET (FP) PO SCH (10:30)
[2021-02-24] MEDS: TACROLIMUS ANHYDROUS 1 MG CAPSULE PO SCH ×2 (10:31→21:53)
[2021-02-24] MEDS: predniSONE 5 MG TABLET (UD) PO SCH (10:31)
[2021-02-24] MEDS: amLODIPine BESYLATE 5 MG TABLET (FP) PO SCH (10:31)
[2021-02-24] MEDS: ESCITALOPRAM OXALATE 10 MG TABLET PO SCH (10:31)
[2021-02-24] MEDS: azaTHIOprine 50 MG TABLET PO SCH (10:33)
[2021-02-24 13:07] LABS: FREE KAPPA,SERUM 129.9 mg/L (3.3-19.4)
[2021-02-24] MEDS: AMINO ACIDS 4.25%/D5W 1,000 ML IV SCH (14:45)
[2021-02-24 15:02] LABS: BASO % 0.3 % (0-2.0); EOS % 1.4 % (0-4.5); HEMOGLOBIN 10.6 GM/dL (11.7-16.9); LYMPH % 49.7 % (8-40); MCH 27.9 pg (25.7-33.7); MCHC 33.1 g/dl (32.0-35.9); MEAN CELL VOLUME 84.3 fl (80-96); MEAN PLT VOLUME 6.6 fl (7.5-11.1); MONO % 8.4 % (3.8-10.2); NEUT % 40.2 % (42.8-82.8); PLATELET COUNT 210 10^3/uL (134-434); RBC 3.79 M/mm3 (4.00-5.60); RDW 17.2 % (11.9-15.9); WHITE BLOOD COUNT 2.9 K/mm3 (4.0-10.0)
[2021-02-24 15:11] LABS: ALBUMIN 2.7 g/dl (3.4-5.0); CALCIUM 10.7 mg/dL (8.5-10.1)
[2021-02-24 15:12] LABS: BLOOD UREA NITROGEN 45.4 mg/dL (7-18)
[2021-02-24 15:14] LABS: CREATININE 1.1 mg/dL (0.55-1.3)
[2021-02-24 15:16] LABS: BILIRUBIN,TOTAL 0.2 mg/dL (0.2-1); TOT PROT 6.7 g/dl (6.4-8.2)
[2021-02-24 15:18] LABS: MAGNESIUM 1.4 mg/dL (1.8-2.4)
[2021-02-24] MEDS: ATORVASTATIN CA 10 MG TABLET (FP) PO SCH (21:48)
[2021-02-24] MEDS: DOCUSATE SODIUM 100 MG CAPSULE (FP) PO SCH (21:48)
[2021-02-25] MEDS: INSULIN SLIDING SCALE (NOVOLOG) 1 VIAL SQ SCH ×4 (06:10→22:57)
[2021-02-25] MEDS: predniSONE 5 MG TABLET (UD) PO SCH (09:37)
[2021-02-25] MEDS: ESCITALOPRAM OXALATE 10 MG TABLET PO SCH (09:37)
[2021-02-25] MEDS: FINASTERIDE 5 MG TABLET (FP) PO SCH (09:37)
[2021-02-25] MEDS: amLODIPine BESYLATE 5 MG TABLET (FP) PO SCH (09:37)
[2021-02-25] MEDS: MULTIVITAMINS (DAILY MVI) TABLET (FP) PO SCH (09:37)
[2021-02-25] MEDS: TACROLIMUS ANHYDROUS 1 MG CAPSULE PO SCH ×2 (09:38→22:57)
[2021-02-25 10:03] LABS: BASO % 0.2 % (0-2.0); EOS % 0.6 % (0-4.5); HEMATOCRIT 29.6 % (35.4-49); HEMOGLOBIN 9.5 GM/dL (11.7-16.9); LYMPH % 47.6 % (8-40); MCH 27.3 pg (25.7-33.7); MCHC 32.1 g/dl (32.0-35.9); MEAN CELL VOLUME 85.1 fl (80-96); MEAN PLT VOLUME 6.9 fl (7.5-11.1); MONO % 8.4 % (3.8-10.2); NEUT % 43.2 % (42.8-82.8); PLATELET COUNT 210 10^3/uL (134-434); RBC 3.48 M/mm3 (4.00-5.60); RDW 17.2 % (11.9-15.9)
[2021-02-25 10:32] LABS: ALBUMIN 2.6 g/dl (3.4-5.0); BLOOD UREA NITROGEN 46.6 mg/dL (7-18); CALCIUM 10.5 mg/dL (8.5-10.1); MAGNESIUM 1.4 mg/dL (1.8-2.4)
[2021-02-25 10:37] LABS: BILIRUBIN,TOTAL 0.4 mg/dL (0.2-1); TOT PROT 6.3 g/dl (6.4-8.2)
[2021-02-25] MEDS ORDERED: INSULIN (NOVOLOG) ASPART 100 UNITS/ML 10ML VIAL ONE ×2 (11:41→22:49)
[2021-02-25] MEDS: azaTHIOprine 50 MG TABLET PO SCH (12:20)
[2021-02-25] MEDS: CINACALCET HCL 30 MG TAB (FP) PO SCH (12:20)
[2021-02-25] MEDS: AMINO ACIDS 4.25%/D5W 1,000 ML IV SCH ×2 (13:00→23:02)
[2021-02-25] MEDS ORDERED: MAGNESIUM SULF 50% (8.12 MEQ/2 ML-1 GM VIAL) IVPB ONE (13:28)
[2021-02-25] MEDS: DOCUSATE SODIUM 100 MG CAPSULE (FP) PO SCH (22:45)
[2021-02-25] MEDS: ATORVASTATIN CA 10 MG TABLET (FP) PO SCH (22:45)
[2021-02-26] MEDS: INSULIN SLIDING SCALE (NOVOLOG) 1 VIAL SQ SCH ×2 (06:01→11:28)
[2021-02-26] MEDS: amLODIPine BESYLATE 5 MG TABLET (FP) PO SCH (09:30)
[2021-02-26] MEDS: predniSONE 5 MG TABLET (UD) PO SCH (09:30)
[2021-02-26] MEDS: FINASTERIDE 5 MG TABLET (FP) PO SCH (09:30)
[2021-02-26] MEDS: MULTIVITAMINS (DAILY MVI) TABLET (FP) PO SCH (09:30)
[2021-02-26] MEDS: ESCITALOPRAM OXALATE 10 MG TABLET PO SCH (09:30)
[2021-02-26] MEDS: TACROLIMUS ANHYDROUS 1 MG CAPSULE PO SCH (09:31)
[2021-02-26] MEDS: azaTHIOprine 50 MG TABLET PO SCH (09:32)
[2021-02-26] MEDS: CINACALCET HCL 30 MG TAB (FP) PO SCH (09:33)
[2021-02-26] MEDS: AMINO ACIDS 4.25%/D5W 1,000 ML IV SCH (13:11)
[2021-02-26 15:25] VITALS: BP 122/68; PULSE 70; TEMP 98.3
== END 2021-02-26 15:43 | disposition home health service (06) | DRG 640 ==
LOC: JER 16:36 → JERBED 23:09 → J8W 02-21 04:05
PROVIDERS: ADMIT Internal Medicine; ATTEND Family Medicine
DX: E83.52 Hypercalcemia (principal); E43 Unspecified severe protein-calorie malnutrition; Z94.0 Kidney transplant status; N39.0 Urinary tract infection, site not specified; Z68.1 Body mass index [BMI] 19.9 or less, adult; M48.56XA Collapsed vertebra, not elsewhere classified, lumbar region, initial encounter for fracture; K92.1 Melena; I10 Essential (primary) hypertension; R31.9 Hematuria, unspecified; I25.10 Atherosclerotic heart disease of native coronary artery without angina pectoris; E11.9 Type 2 diabetes mellitus without complications; Z79.4 Long term (current) use of insulin; G30.9 Alzheimer's disease, unspecified; F02.80 Dementia in other diseases classified elsewhere, unspecified severity, without behavioral disturbance, psychotic disturbance, mood disturbance, and anxiety; R62.7 Adult failure to thrive; D64.9 Anemia, unspecified; N31.9 Neuromuscular dysfunction of bladder, unspecified; D72.819 Decreased white blood cell count, unspecified; I12.9 Hypertensive chronic kidney disease with stage 1 through stage 4 chronic kidney disease, or unspecified chronic kidney disease; N18.9 Chronic kidney disease, unspecified; E11.22 Type 2 diabetes mellitus with diabetic chronic kidney disease
CPT/HCPCS: 36415; 71045-TC-FY; 71250-TC; 74176-TC; 78306-TC; 80053; 81003; 82272; 82310; 82550; 82962; 83735; 83883; 83970; 84155; 84165; 84484; 85025; 87040; 87086; 87186; 93005; 93010; 99285-25; A9503; C9803; U0003; U0005

== ENCOUNTER 2021-03-09 17:42 | Inpatient (IN) | payer OTHER ==
[2021-03-09 20:45] LABS: BASO % 0.4 % (0-2.0); EOS % 1.8 % (0-4.5); HEMATOCRIT 33.6 % (35.4-49); HEMOGLOBIN 10.9 GM/dL (11.7-16.9); LYMPH % 44.9 % (8-40); MCH 27.8 pg (25.7-33.7); MCHC 32.5 g/dl (32.0-35.9); MEAN CELL VOLUME 85.5 fl (80-96); MEAN PLT VOLUME 6.9 fl (7.5-11.1); MONO % 11.7 % (3.8-10.2); NEUT % 41.2 % (42.8-82.8); PLATELET COUNT 161 10^3/uL (134-434); RBC 3.93 M/mm3 (4.00-5.60); RDW 17.5 % (11.9-15.9); WHITE BLOOD COUNT 2.8 K/mm3 (4.0-10.0)
[2021-03-09 20:53] LABS: INR 1.02 (0.83-1.09); PROTHROMBIN TIME (PATIENT) 11.7 SEC (9.7-13.0)
[2021-03-09 20:55] LABS: ACTIVATED PTT 27.2 SECONDS (25.2-36.5)
[2021-03-09 21:02] LABS: CHLORIDE 109 mmol/L (98-107); SODIUM 145 mmol/L (136-145)
[2021-03-09 21:04] LABS: CALCIUM 11.4 mg/dL (8.5-10.1)
[2021-03-09 21:05] LABS: ANION GAP 4 MMOL/L (8-16); BLOOD UREA NITROGEN 40.7 mg/dL (7-18); CO2 32 mmol/L (21-32); GLUCOSE,RANDOM 144 mg/dL (74-106)
[2021-03-09 21:08] LABS: CREATININE 1.2 mg/dL (0.55-1.3); SGOT/AST 10 U/L (15-37); SGPT/ALT 12 U/L (13-61)
[2021-03-09 21:10] LABS: BILIRUBIN,TOTAL 0.4 mg/dL (0.2-1); TOT PROT 7.2 g/dl (6.4-8.2)
[2021-03-09 21:11] LABS: ALK PHOS 70 U/L (45-117)
[2021-03-09 21:19] LABS: ALBUMIN 3.1 g/dl (3.4-5.0)
[2021-03-09 21:53] LABS: PH,URINE 7.5 (5.0-8.0); URINE APPEARANCE CLOUDY; URINE BILIRUBIN NEGATIVE (NEGATIVE); URINE COLOR YELLOW; URINE GLUCOSE (UA) NEGATIVE (NEGATIVE); URINE KETONE NEGATIVE (NEGATIVE); URINE LEUK ESTERASE NEGATIVE (NEGATIVE); URINE NITRITE NEGATIVE (NEGATIVE); URINE PROTEIN NEGATIVE (NEGATIVE); URINE UROBILINOGEN 0.2 mg/dL (0.2-1.0)
[2021-03-10] MEDS: DEXTROSE 5%-0.45% SALINE 1,000 ML IV SCH (02:51)
[2021-03-10] MEDS: FAMOTIDINE 20 MG TABLET PO SCH (06:32)
[2021-03-10 07:35] LABS: HEMATOCRIT 33.9 % (35.4-49); HEMOGLOBIN 10.8 GM/dL (11.7-16.9); MCH 27.5 pg (25.7-33.7); RBC 3.94 M/mm3 (4.00-5.60); WHITE BLOOD COUNT 2.7 K/mm3 (4.0-10.0)
[2021-03-10 07:36] LABS: BASO % 0.3 % (0-2.0); EOS % 2.9 % (0-4.5); LYMPH % 51.5 % (8-40); MEAN PLT VOLUME 6.9 fl (7.5-11.1); MONO % 10.7 % (3.8-10.2); NEUT % 34.6 % (42.8-82.8); PLATELET COUNT 157 10^3/uL (134-434); RDW 17.6 % (11.9-15.9)
[2021-03-10 07:56] LABS: CALCIUM 11.3 mg/dL (8.5-10.1)
[2021-03-10 07:57] LABS: BLOOD UREA NITROGEN 40.2 mg/dL (7-18)
[2021-03-10 08:00] LABS: CREATININE 1.1 mg/dL (0.55-1.3)
[2021-03-10] MEDS ORDERED: TACROLIMUS ANHYDROUS 5 MG CAPSULE PO SCH (10:00)
[2021-03-10] MEDS ORDERED: FINASTERIDE 5 MG TABLET (FP) PO SCH (10:00)
[2021-03-10] MEDS ORDERED: ESCITALOPRAM OXALATE 10 MG TABLET PO SCH (10:00)
[2021-03-10] MEDS: TAMSULOSIN HCL 0.4 MG CAP PO SCH (10:18)
[2021-03-10] MEDS: CINACALCET HCL 30 MG TAB (FP) PO SCH (10:47)
[2021-03-10] MEDS: azaTHIOprine 50 MG TABLET PO SCH (10:47)
[2021-03-10] MEDS: predniSONE 5 MG TABLET (UD) PO SCH (10:47)
[2021-03-10] MEDS: ASPIRIN 81 MG CHEWABLE TABLETS PO SCH (10:47)
[2021-03-10] MEDS: amLODIPine BESYLATE 5 MG TABLET (FP) PO SCH (10:47)
[2021-03-10] MEDS: MULTIVITAMINS (DAILY MVI) TABLET (FP) PO SCH (10:48)
[2021-03-10] MEDS: SODIUM BICARBONATE 650 MG TABLET PO SCH (10:48)
[2021-03-10] MEDS: MELATONIN 1 MG TABLET PO SCH (21:01)
[2021-03-10] MEDS: ATORVASTATIN CA 10 MG TABLET (FP) PO SCH (21:01)
[2021-03-11] MEDS: DEXTROSE 5%-0.45% SALINE 1,000 ML IV SCH ×3 (01:11→11:40)
[2021-03-11] MEDS: FAMOTIDINE 20 MG TABLET PO SCH (06:08)
[2021-03-11] MEDS: ASPIRIN 81 MG CHEWABLE TABLETS PO SCH (10:00)
[2021-03-11] MEDS: SODIUM BICARBONATE 650 MG TABLET PO SCH (10:01)
[2021-03-11] MEDS: amLODIPine BESYLATE 5 MG TABLET (FP) PO SCH (10:01)
[2021-03-11] MEDS: MULTIVITAMINS (DAILY MVI) TABLET (FP) PO SCH (10:01)
[2021-03-11] MEDS: CINACALCET HCL 30 MG TAB (FP) PO SCH (10:01)
[2021-03-11] MEDS: azaTHIOprine 50 MG TABLET PO SCH (10:01)
[2021-03-11] MEDS: predniSONE 5 MG TABLET (UD) PO SCH (10:01)
[2021-03-11] MEDS: TAMSULOSIN HCL 0.4 MG CAP PO SCH (10:02)
[2021-03-11] MEDS: TACROLIMUS ANHYDROUS 1 MG CAPSULE PO SCH ×2 (12:50→21:10)
[2021-03-11 16:10] VITALS: BMI 12.7
[2021-03-11] MEDS ORDERED: FERRIC CARBOXYMALTOSE 750 MG in SODIUM CHLORIDE 250 ML IVPB ONE (19:00)
[2021-03-11] MEDS: TACROLIMUS 5 MG PO SCH (19:16)
[2021-03-11] MEDS: MELATONIN 1 MG TABLET PO SCH (21:10)
[2021-03-11] MEDS: ATORVASTATIN CA 10 MG TABLET (FP) PO SCH (21:10)
[2021-03-12] MEDS: FAMOTIDINE 20 MG TABLET PO SCH (06:03)
[2021-03-12 07:40] LABS: BASO % 0.2 % (0-2.0); EOS % 1.7 % (0-4.5); HEMATOCRIT 32.4 % (35.4-49); HEMOGLOBIN 10.4 GM/dL (11.7-16.9); LYMPH % 49.8 % (8-40); MCH 27.8 pg (25.7-33.7); MCHC 32.1 g/dl (32.0-35.9); MEAN CELL VOLUME 86.8 fl (80-96); MEAN PLT VOLUME 7.3 fl (7.5-11.1); NEUT % 38.3 % (42.8-82.8); PLATELET COUNT 132 10^3/uL (134-434); RBC 3.73 M/mm3 (4.00-5.60); RDW 17.1 % (11.9-15.9); WHITE BLOOD COUNT 3.3 K/mm3 (4.0-10.0)
[2021-03-12 07:51] LABS: CALCIUM 10.6 mg/dL (8.5-10.1)
[2021-03-12 07:52] LABS: ALBUMIN 2.9 g/dl (3.4-5.0); BLOOD UREA NITROGEN 33.7 mg/dL (7-18)
[2021-03-12 07:55] LABS: CREATININE 1.1 mg/dL (0.55-1.3)
[2021-03-12 07:56] LABS: BILIRUBIN,TOTAL 0.5 mg/dL (0.2-1); TOT PROT 6.5 g/dl (6.4-8.2)
[2021-03-12] MEDS: predniSONE 5 MG TABLET (UD) PO SCH (09:53)
[2021-03-12] MEDS: ASPIRIN 81 MG CHEWABLE TABLETS PO SCH (09:53)
[2021-03-12] MEDS: amLODIPine BESYLATE 5 MG TABLET (FP) PO SCH (09:53)
[2021-03-12] MEDS: TACROLIMUS ANHYDROUS 1 MG CAPSULE PO SCH ×2 (09:53→21:36)
[2021-03-12] MEDS: MULTIVITAMINS (DAILY MVI) TABLET (FP) PO SCH (09:53)
[2021-03-12] MEDS: CINACALCET HCL 30 MG TAB (FP) PO SCH (09:53)
[2021-03-12] MEDS: azaTHIOprine 50 MG TABLET PO SCH (09:54)
[2021-03-12] MEDS: DEXTROSE 5%-0.45% SALINE 1,000 ML IV SCH (15:31)
[2021-03-12] MEDS: MELATONIN 1 MG TABLET PO SCH (21:36)
[2021-03-12] MEDS: ATORVASTATIN CA 10 MG TABLET (FP) PO SCH (21:36)
[2021-03-13] MEDS: FAMOTIDINE 20 MG TABLET PO SCH (08:44)
[2021-03-13] MEDS: MULTIVITAMINS (DAILY MVI) TABLET (FP) PO SCH (10:26)
[2021-03-13] MEDS: amLODIPine BESYLATE 5 MG TABLET (FP) PO SCH (10:26)
[2021-03-13] MEDS: ASPIRIN 81 MG CHEWABLE TABLETS PO SCH (10:26)
[2021-03-13] MEDS: azaTHIOprine 50 MG TABLET PO SCH (10:26)
[2021-03-13] MEDS: predniSONE 5 MG TABLET (UD) PO SCH (10:26)
[2021-03-13] MEDS: TACROLIMUS ANHYDROUS 1 MG CAPSULE PO SCH ×2 (10:27→22:13)
[2021-03-13] MEDS: CINACALCET HCL 30 MG TAB (FP) PO SCH (10:28)
[2021-03-13] MEDS ORDERED: ZOLEDRONIC ACID 4 MG in SODIUM CHLORIDE 100 ML IVPB ONE (15:12)
[2021-03-13] MEDS: ATORVASTATIN CA 10 MG TABLET (FP) PO SCH (22:13)
[2021-03-13] MEDS: MELATONIN 1 MG TABLET PO SCH (22:13)
[2021-03-14] MEDS: FAMOTIDINE 20 MG TABLET PO SCH (06:09)
[2021-03-14 09:35] LABS: CALCIUM 10.9 mg/dL (8.5-10.1)
[2021-03-14] MEDS: predniSONE 5 MG TABLET (UD) PO SCH (10:09)
[2021-03-14] MEDS: CINACALCET HCL 30 MG TAB (FP) PO SCH (10:09)
[2021-03-14] MEDS: ASPIRIN 81 MG CHEWABLE TABLETS PO SCH (10:09)
[2021-03-14] MEDS: MULTIVITAMINS (DAILY MVI) TABLET (FP) PO SCH (10:09)
[2021-03-14] MEDS: azaTHIOprine 50 MG TABLET PO SCH (10:09)
[2021-03-14] MEDS: TACROLIMUS ANHYDROUS 1 MG CAPSULE PO SCH ×2 (10:09→21:09)
[2021-03-14] MEDS: amLODIPine BESYLATE 5 MG TABLET (FP) PO SCH (10:09)
[2021-03-14] MEDS: MELATONIN 1 MG TABLET PO SCH (21:09)
[2021-03-14] MEDS: ATORVASTATIN CA 10 MG TABLET (FP) PO SCH (21:09)
[2021-03-15] MEDS: FAMOTIDINE 20 MG TABLET PO SCH (06:14)
[2021-03-15] MEDS: ASPIRIN 81 MG CHEWABLE TABLETS PO SCH (10:27)
[2021-03-15] MEDS: TACROLIMUS ANHYDROUS 1 MG CAPSULE PO SCH ×2 (10:27→21:59)
[2021-03-15] MEDS: MULTIVITAMINS (DAILY MVI) TABLET (FP) PO SCH (10:27)
[2021-03-15] MEDS: azaTHIOprine 50 MG TABLET PO SCH (10:27)
[2021-03-15] MEDS: amLODIPine BESYLATE 5 MG TABLET (FP) PO SCH (10:27)
[2021-03-15] MEDS: predniSONE 5 MG TABLET (UD) PO SCH (10:27)
[2021-03-15] MEDS: CINACALCET HCL 30 MG TAB (FP) PO SCH (10:28)
[2021-03-15] MEDS ORDERED: amLODIPine BESYLATE 5 MG TABLET (FP) PO SCH (12:43)
[2021-03-15] MEDS: MELATONIN 1 MG TABLET PO SCH (21:59)
[2021-03-15] MEDS: ATORVASTATIN CA 10 MG TABLET (FP) PO SCH (21:59)
[2021-03-16] MEDS: FAMOTIDINE 20 MG TABLET PO SCH (06:20)
[2021-03-16] MEDS: azaTHIOprine 50 MG TABLET PO SCH (10:08)
[2021-03-16] MEDS: MULTIVITAMINS (DAILY MVI) TABLET (FP) PO SCH (10:08)
[2021-03-16] MEDS: CINACALCET HCL 30 MG TAB (FP) PO SCH (10:08)
[2021-03-16] MEDS: ASPIRIN 81 MG CHEWABLE TABLETS PO SCH (10:08)
[2021-03-16] MEDS: TACROLIMUS ANHYDROUS 1 MG CAPSULE PO SCH (10:08)
[2021-03-16] MEDS: predniSONE 5 MG TABLET (UD) PO SCH (10:09)
[2021-03-16 17:38] VITALS: BP 147/65; PULSE 79; TEMP 98
[2021-03-17 17:07] LABS: FREE KAPPA,SERUM 102.2 mg/L (3.3-19.4)
== END 2021-03-16 17:45 | DRG 884 ==
LOC: JER 17:42 → JERBED 19:49 → J4S 03-10 00:23
PROVIDERS: ADMIT Internal Medicine; ATTEND Family Medicine
DX: F03.90 Unspecified dementia, unspecified severity, without behavioral disturbance, psychotic disturbance, mood disturbance, and anxiety (principal); E43 Unspecified severe protein-calorie malnutrition; R53.2 Functional quadriplegia; G93.41 Metabolic encephalopathy; Z68.1 Body mass index [BMI] 19.9 or less, adult; R64 Cachexia; Z94.0 Kidney transplant status; N39.0 Urinary tract infection, site not specified; I25.10 Atherosclerotic heart disease of native coronary artery without angina pectoris; I10 Essential (primary) hypertension; E86.0 Dehydration; E78.5 Hyperlipidemia, unspecified; D64.9 Anemia, unspecified; D72.819 Decreased white blood cell count, unspecified; I12.9 Hypertensive chronic kidney disease with stage 1 through stage 4 chronic kidney disease, or unspecified chronic kidney disease; E11.22 Type 2 diabetes mellitus with diabetic chronic kidney disease; N18.9 Chronic kidney disease, unspecified; H54.40 Blindness, one eye, unspecified eye; E11.51 Type 2 diabetes mellitus with diabetic peripheral angiopathy without gangrene; E83.52 Hypercalcemia; R62.7 Adult failure to thrive; B96.5 Pseudomonas (aeruginosa) (mallei) (pseudomallei) as the cause of diseases classified elsewhere; N31.9 Neuromuscular dysfunction of bladder, unspecified; T83.021A Displacement of indwelling urethral catheter, initial encounter; Y83.8 Other surgical procedures as the cause of abnormal reaction of the patient, or of later complication, without mention of misadventure at the time of the procedure; Z95.5 Presence of coronary angioplasty implant and graft; Z89.429 Acquired absence of other toe(s), unspecified side
CPT/HCPCS: 36415; 71045-TC-FY; 80048; 80053; 80197; 81003; 82310; 82607; 82728; 82746; 82784; 83540; 83550; 83605; 83883; 83970; 84155; 84165; 84484; 85025; 85610; 85730; 86334; 86850; 86900; 86901; 87040; 87086; 87186; 87496; 87799; 93005; 93010; 97116-GP; 97161-GP; 99285-25; C9803; J1439; J3489; U0003; U0005